=== PATIENT | female | born 1980 | race Caucasian/White ===

== ENCOUNTER 2022-06-19 10:49 | Outpatient (CLI) | payer OTHER, SELFPAY ==
[2022-06-19 11:12] LABS: Influenza Type A Negative (Negative); Influenza Type B Negative (Negative)
[2022-06-19 16:02] LABS: SARS PCR* Negative SARS-CoV-2 (Negative)
== END 2022-06-19 10:50 | disposition home or self-care (01) ==
PROVIDERS: PCP Family Medicine; Visit Provider Nurse Practitioner Family
DX: Z20.822 Contact with and (suspected) exposure to COVID-19 (principal); R51.9 Headache, unspecified; J32.9 Chronic sinusitis, unspecified
CPT/HCPCS: 87635; 87804

== ENCOUNTER 2023-04-23 14:36 | Outpatient (CLI) | payer OTHER, SELFPAY ==
--- NOTE | 2023-04-23 14:40 | CRLHL7_ITS ---
For Patients: As a result of the Cures Act, medical imaging exams and procedure reports are released immediately into your electronic medical record. You may view this report before your referring provider. If you have questions, please contact your health care provider. BILATERAL DIGITAL SCREENING MAMMOGRAM WITH COMPUTER-AIDED DETECTION WITH TOMOSYNTHESIS CLINICAL HISTORY: Routine screening exam. COMPARISON: None. TECHNIQUE: Digital mammogram in CC and MLO projections including computer-aided detection (CAD). BREAST COMPOSITION: There are scattered areas of fibroglandular density. FINDINGS: RIGHT Breast: Focal nodular density upper outer quadrant 7 cm from the nipple. LEFT Breast: No suspicious findings. IMPRESSION: RIGHT breast asymmetry/mass. RECOMMENDATIONS: Additional mammographic views of the RIGHT breast including 3D spot-compression CC/MLO. RIGHT breast ultrasound may also be required. The [facility] will contact the patient for follow-up. BI-RADS Category 0: Incomplete: Need Additional Imaging Evaluation and/or Prior Mammograms for Comparison A lay language report of this examination will be provided to the patient. Dictated by Herson Forde MD @ 04/27/2023 8:48:17 AM PT/Dictated by: Herson Forde MD @ 04/27/2023 8:48:00 AM (Electronically Signed)
== END 2023-04-23 14:37 | disposition home or self-care (01) ==
LOC: MAMMO 14:37
PROVIDERS: PCP Family Medicine; Visit Provider Obstetrics & Gynecology
DX: Z12.31 Encounter for screening mammogram for malignant neoplasm of breast (principal); N63.10 Unspecified lump in the right breast, unspecified quadrant
CPT/HCPCS: 77063; 77067; 80048

== ENCOUNTER 2023-04-29 08:19 | Day surgery (SDC) | payer OTHER, SELFPAY ==
[2023-04-29] VITALS (12 sets, daily range): BP systolic 105–132; BP diastolic 76–104; PULSE 55–65; RESP 16–18; TEMP 35.8–36.7; O2SAT 96–100; BMI 31.4
[2023-04-29] MEDS: MIDAZOLAM HCL 1 MG/ML inj IVP (07:29)
[2023-04-29] MEDS: LACTATED RINGERS 1000 ML 1,000 ML 100 ML IV (07:30)
--- OUTSIDE RECORDS SUMMARY | 2023-04-29 08:21 | XMS_ITS | Patient Health Record ---
Author Name Unknown Organization [facility] Address [address] [place] [id number] Care Team Providers Care Pest Control Worker Helper Name Role Phone None, No PCP Primary Care Provider Alan Holden Unavailable [phone] ALLERGIES Allergen (clinical drug ingredient) Drug/Non Drug Allergy documented on EMR Reaction Allergy Type Onset Date Status promethazine Phenergan Unknown Drug Allergy Acti ve Compazine Unknown Drug Allergy Active RESULTS Component Value Reference Range Notes THINPREP TIS AND HPV mRNA E6 /E7 (30 yrs and over) Reviewed date:02/17/2023 08:01:33 AM Interpretation: Performing Lab:[place], [facility] Herb Mckee Notes/Report: CLINICAL INFORMATION: ANNUAL LMP: NONE GIVEN PREV. PAP: 2020? PREV. BX: NONE GIVEN SOURCE: Cervix, Endocer vix STATEMENT OF ADEQUACY: Satisfactory for evaluation. Endocervical/transformation zone component absent. Age and/or menstrual status not provided INTERPRETATION/RESULT: Negat viridiana for intraepithelial lesion or malignancy. COMMENT: This Pap test has been evaluated with computer assisted technology. MEDICAL SECRETARY RECEPTIONIST: [place] CT(ASCP) CT Screening Location: [address] [address] COMMENT EXPLANATORY NOTE: The Pap is a screening test for cervical cancer. It is not a diagnostic test and is subject to false negative and false positive results. It is most reliable when a satisfactory sample, regularly obtained, is submitted with relevant clinical findings and history, and when the Pap result is evaluated along with historic and current clinical information. HPV mRNA E6/E7 Not Detected Not Detected Methodology: Packaging Engineer-Mediated Amplification This assay detects E6/E7 viral messenger RNA (mRNA) from 14 high-risk HPV types (16,18,31,33,35,39,45,51,52,56, 58,59,66,68). Cervical sources are required for HPV testing. If a vaginal source from a patient who has had a total hysterectomy with removal of cervix was submitted, please contact the testing laboratory for alternative testing options. For additional information, please refer to http://education.Smeet.Gradeable/faq/FRZ949r5 (This link if provided for information/ educational purposes only.) REASON FOR REFERRAL No Information MEDICATIONS Medication SIG (Take, Route, Frequency, Duration) Notes Start Date End Date Status OLANZapine 5 mg Active Metoprolol Succinate 100 mg Active Celecoxib 200 mg Active Baclofen 20 mg Active DULoxetine HCl 60 mg Activ e clonazePAM 1 mg Active Estradiol 1 mg Active traZODone HCl 100 Active Escitalopram Oxalate 20 mg Active Estradiol 1 MG 1 tablet Orally Once a day for 90 days 02/10/2023 Active Topiramate 100 Active Fluticasone Propionate HFA Active traMADol HCl 100 Active Omeprazole 40 Active SOCIAL HISTORY Tobacco Use: Social History Observation Description Date Details (start date - stop date) Never Smoker NA - NA Sex Assigned At : Social History Observation Description Sex Assigned At Unknown Tobacco Use/Smoking Question Answer Notes Are you a nonsmoker Alcohol Screen (Audit-C) Question Answer Notes Did you have a drink containing alcohol in the p ast year? No Points 0 Interpretation Negative PROBLEMS Problem Type ICD Code Onset Dates Problem Status W/U Status Risk SNOMED Code Notes Problem Annual visit for general adult medical examination without abnormal findings (Z00.00) Active confirmed Adult health examination (554795219) Problem Menopause (Z78.0) Active confirmed Menopause (570867149) Encounters Encounter Location Date Provider Diagnosis [address] [address] 02/10/2023 Alan Shah Annual visit for general adult medical examination without abnormal findings Z00.00 and Menopause Z78.[address] [address] 02/10/2023 Alan Shah Encounter for screen ing for human papillomavirus (HPV) Z11.51 and Encounter for annual routine gynecological examination Z01.419 ASSESSMENTS Encounter Date Diagnosis Assessment Notes Treatment Notes Treatment Clinical Notes 02/10/2023 Annual visit for general adult medical examination without abnormal findings (ICD-10 - Z00.00) 02/10/2023 Menopause (ICD-10 - Z78.0) 02/10/2023 Encounter for screening for human papillomavirus (HPV) (ICD-10 - Z11.51) 02/10/2023 Encounter for annual routine gynecological examination (ICD-10 - Z01.419) PLAN OF TREATMENT No Information Insurance Providers Payer Name Payer Address Payer Phone Subscriber Number Group Number Insured Name Patient Relationship to Insured Coverage Start Date Coverage End Date [employer] (INS BILL) [address] [address] [place] [address] [id number] Sofia Iyer Self - patient is the insured MEDICAL (GENERAL) HISTORY Medical History History ICD Code chronic pain endometriosis anxiety/depression hx of migraines hypertension ulcers Surgical History Surgery Date(Month/Year) spinal cord stimulator upper endoscopy multiple times total hysterectomy in ' ovarian cysts removed D and C multiple times Hospitalization History Reason Date(Month/Year) psych 01/21/2023
[2023-04-29] MEDS: CELECOXIB 200 MG CAPSULE PO (08:30)
[2023-04-29] MEDS: OXYCODONE (CR) 10 MG TAB.ER.12H PO (08:30)
[2023-04-29] MEDS: ACETAMINOPHEN 500 MG TABLET 1000 MG PO (08:30)
[2023-04-29] MEDS: SODIUM CHLORIDE 0.9 % (FLUSH) 10 ML SYRINGE IVF (09:00)
[2023-04-29] MEDS: fentaNYL 100 MCG/2 ML inj IVP (10:30)
--- NOTE | 2023-04-29 10:52 | SUR.PREOP ---
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
[2023-04-29] MEDS: CEFAZOLIN 2 GM INJ IVP (10:56)
--- NOTE | 2023-04-29 11:00 | CRLHL7_ITS ---
For Patients: As a result of the Cures Act, medical imaging exams and procedure reports are released immediately into your electronic medical record. You may view this report before your referring provider. If you have questions, please contact your health care provider. Indication: RT FOOT, SIMMONS FX REPAIR Technique: Three fluoroscopic images of the right foot. Fluoroscopic time 62.5 seconds. IMPRESSION: Fluoroscopic guidance for open reduction internal fixation of 5th metatarsal fracture. Dictated by Herson Forde MD @ 04/29/2023 12:28:50 PM (Electronically Signed)
--- NOTE | 2023-04-29 11:14 | P.NB_ITS ---
Nerve Block Nerve Block Time Seen by Provider: 10:40 Date Seen: 04/29/23 Type of block requested by surgeon for post-operative analgesia: popliteal Side: right Time out performed: Yes Verification of patient name: Yes Verification of date of : Yes Site marking: site marked Name of person performing procedure: Papa Continuous monitoring Was continuous monitoring of O2 sat, B/P, monitoring and evaluation advisor, recorded every 15 minutes?: Yes Procedure Checklist: sterile prep, needles and gloves Ultrasound guided. Images saved: Yes Medications given in 5ml increments after negative aspiration: Ropivicaine %: 0.5 mL: 20 Needle gauge: 22 Patient tolerated procedure well: Yes Additional comments: Needle noted adjacent to nerve Block Charges Block Charge (with Pro Fee): Sciatic Nerve Use of Ultrasound Machine for Block: Yes- US Guidance/pain block
--- NOTE | 2023-04-29 11:14 | W.ANESCHARGE ---
Anesthesia Charges Start Date/Time Anesthesia Start Date: 04/29/23 Anesthesia Start Time: 10:51 Stop Date/Time Anesthesia Stop Date: 04/29/23 Anesthesia Stop Time: 12:27
--- NOTE | 2023-04-29 11:28 | SUR.PREOP ---
TIME?OUT:?1030 PT/RN/MDA?VERIFICATION?OF?SURGICAL?SITE,?PROCEDURE,?AND?CONSENT OBTAINED?PRIOR?TO?INVASIVE?PROCEDURE. right foot RN MDA SHOT BAGGER PT AND CONSENT
--- NOTE | 2023-04-29 12:20 | PM.ORPRC ---
Procedure Note Date of procedure: 04/29/23 Procedure: PREOPERATIVE DIAGNOSIS: Right foot Garica fracture POSTOPERATIVE DIAGNOSIS: Right foot Garcia fracture NAME OF OPERATION: Right foot Garcia fracture ORIF SURGEON: Shorty Page MD ROTARY ENVELOPE MACHINE OPERATOR: Monica Penaloza PA-C ANESTHESIA: General ESTIMATED BLOOD LOSS: 5 mL COMPLICATIONS: None SPECIMENS: None DRAINS: None PREOPERATIVE ANTIBIOTICS: Ancef 2 g INDICATIONS: The patient is a 89-kfxr-vaq-year-old female sustained an injury to the right foot. Given the location of the fracture and propensity for nonunion, ORIF was recommended. The risks, benefits and expected outcomes were discussed in detail. These included but were not limited to: Infection, bleeding, injury to blood vessel or nerve, venous thromboembolism. All questions were answered to their satisfaction. PROCEDURE: The patient was placed supine on the operating room table. General anesthesia was administered. The foot was prepped and draped in the usual sterile fashion. The image intensifier was brought in for an oblique view of the foot. The guide pin was placed percutaneously at the starting point. It was driven into the base of 5th metatarsal several mm and confirmed on all three views. A percutaneous incision was made around the guide pin. Subcutaneous dissection was taken with a Miriam. Length was measured. The 4.5 mm cannulated drill was used. The 4.5 mm tap was used. We placed the 4.5 mm x 50 mm headless compression screw. This nicely compressed the fracture. Its placement was confirmed with the image intensifier in all three views. Attention was then turned to Ignite demineralized bone matrix. The trocar was placed percutaneously into the tuberosity of the calcaneus, laterally. 4 mL of bone marrow was aspirated. This was mixed on the back table with the DBM. We then made a tiny stab incision at the fracture site and used the trocar to inject the DBM around the fracture site. The incision was irrigated with normal saline. Skin was closed with a 4-0 Vicryl in an interrupted inverted fashion, glue was used to seal the skin. A dry dressing and short-leg Jaxon Garcia splint were applied. Sponge and needle counts were correct x2. The patient tolerated the procedure well. There were no apparent complications. They were carefully transferred to the hospital bed and taken to the postanesthesia care unit in satisfactory condition. PLAN: The patient will be discharged to home. They will be nonweightbearing on the lower extremity. They will follow up in the office in 1 week for a wound check and 3 nonweightbearing views of the foot prior to being seen, in preparation for a tall cam walker, weight-bearing as tolerates, with physical therapy.
--- NOTE | 2023-04-29 12:28 | W.ANESCHARGE ---
Anesthesia Charges Start Date/Time Anesthesia Start Date: 04/29/23 Anesthesia Start Time: 10:51 Stop Date/Time Anesthesia Stop Date: 04/29/23 Anesthesia Stop Time: 12:27
== END 2023-04-29 13:41 | disposition home or self-care (01) ==
LOC: OR 08:20
PROVIDERS: PCP Family Medicine; Visit Provider Orthopaedic Surgery
PROC: (CPT 28485; principal; 2023-04-29 12:00)
DX: S92.351A Displaced fracture of fifth metatarsal bone, right foot, initial encounter for closed fracture (principal); G89.18 Other acute postprocedural pain
CPT/HCPCS: 28485; 01480; 64445; 73620; 76942; A4580; A9270; C1713; J0690; J1100; J2250; J2405; J2704; J2795; J3010; J7120

== ENCOUNTER 2023-05-12 10:21 | Outpatient (CLI) | payer OTHER, SELFPAY ==
--- OUTSIDE RECORDS SUMMARY | 2023-05-12 10:24 | XMS_ITS | Patient Health Record ---
Author Name Unknown Organization [facility] Address [address] [place] [id number] Care Team Providers Care Digital Strategist Senior Manager Name Role Phone None, No PCP Primary Care Provider Alan Holden Unavailable [phone] ALLERGIES Allergen (clinical drug ingredient) Drug/Non Drug Allergy documented on EMR Reaction Allergy Type Onset Date Status promethazine Phenergan Unknown Drug Allergy Acti ve Compazine Unknown Drug Allergy Active RESULTS Component Value Reference Range Notes THINPREP TIS AND HPV mRNA E6 /E7 (30 yrs and over) Reviewed date:02/17/2023 08:01:33 AM Interpretation: Performing Lab:[place], [facility] Herb Mckee Notes/Report: CLINICAL INFORMATION: ANNUAL LMP: NONE GIVEN PREV. PAP: 2020? PREV. BX: NONE GIVEN SOURCE: Cervix, Endocer vix STATEMENT OF ADEQUACY: Satisfactory for evaluation. Endocervical/transformation zone component absent. Age and/or menstrual status not provided INTERPRETATION/RESULT: Negat viridiana for intraepithelial lesion or malignancy. COMMENT: This Pap test has been evaluated with computer assisted technology. MANAGER INPATIENT: [place] CT(ASCP) CT Screening Location: [address] [address] COMMENT EXPLANATORY NOTE: The Pap is a [...] mRNA E6/E7 Not Detected Not Detected Methodology: Glass Tinter-Mediated Amplification This assay detects E6/E7 viral messenger RNA (mRNA) from 14 high-risk HPV types (16,18,31,33,35,39,45,51,52,56, 58,59,66,68). Cervical sources are required for HPV testing. If a vaginal source from a patient who has had a total hysterectomy with removal of cervix was submitted, please contact the testing laboratory for alternative testing options. For additional information, please refer to http://education.Mitrionics.Ventario/faq/GWZ713e6 (This link if provided for information/ educational [...] findings (Z00.00) Active confirmed Adult health examination (614377605) Problem Menopause (Z78.0) Active confirmed Menopause (835594194) Encounters Encounter Location Date Provider Diagnosis [address] [address] 02/10/2023 Alan Shah Encounter for screen ing for human papillomavirus (HPV) Z11.51 and Encounter for annual routine gynecological examination Z01.419 [facility] [id number] [place] [id number] 02/10/2023 Alan Shah Annual visit for general adult medical examination without abnormal findings Z00.00 and Menopause Z78.0 ASSESSMENTS Encounter Date Diagnosis Assessment Notes Treatment [...] End Date UMR (INS BILL) [address] [address] [place] [address] [id number] Sofia Iyer Self - patient is the insured MEDICAL (GENERAL) HISTORY Medical History History ICD Code chronic pain endometriosis anxiety/depression hx of migraines hypertension ulcers Surgical History Surgery Date(Month/Year) spinal cord stimulator upper endoscopy multiple times total hysterectomy in ' ovarian cysts removed D and C multiple times Hospitalization History Reason Date(Month/Year) psych 01/21/2023
--- NOTE | 2023-05-12 10:45 | CRLHL7_ITS ---
For Patients: As a result of the Cures Act, medical imaging exams and procedure reports are released immediately into your electronic medical record. You may view this report before your referring provider. If you have questions, please contact your health care provider. DIGITAL DIAGNOSTIC RIGHT MAMMOGRAM USING TOMOSYNTHESIS AND COMPUTER-AIDED DETECTION RIGHT BREAST ULTRASOUND CLINICAL HISTORY: RIGHT breast mass/asymmetry. COMPARISON: 04/23/2023. TECHNIQUE: Digital RIGHT mammogram in two projections. Tomosynthesis and CAD utilized. Real-time ultrasound imaging of RIGHT breast with imaging documentation. BREAST COMPOSITION: There are areas of scattered fibroglandular density. FINDINGS: 3D spot compression CC/MLO RIGHT breast mammograms submitted. Decrease conspicuity of nodular density within the upper outer quadrant of the RIGHT breast without architectural distortion. No suspicious calcifications. Targeted RIGHT breast ultrasound performed in the upper outer quadrant 10 o`clock 6 cm from the nipple. In this location clustered microcysts are present measuring in total 7 x 4 x 7 millimeters. No solid masses. IMPRESSION: Benign fibrocystic change RIGHT breast 10 o`clock 6 cm from the nipple measuring 7 millimeters. No evidence of malignancy. RECOMMENDATIONS: Annual BILATERAL screening mammography. Results and recommendations discussed with the patient. BI-RADS Category 2: Benign A lay language report of this examination will be provided to the patient. Dictated by Herson Forde MD @ 05/12/2023 12:11:52 PM adonis/Dictated by: Herson Forde MD @ 05/12/2023 12:11:00 PM (Electronically Signed)
--- NOTE | 2023-05-12 11:15 | CRLHL7_ITS ---
For Patients: As a result of the Cures Act, medical imaging exams and procedure reports are released immediately into your electronic medical record. You may view this report before your referring provider. If you have questions, please contact your health care provider. PLEASE SEE DIGITAL DIAGNOSTIC RIGHT MAMMOGRAM PERFORMED SAME DAY CRL:rob rivas/Dictated by: Herson Forde MD @ 05/12/2023 12:11:00 PM (Electronically Signed)
== END 2023-05-12 10:22 | disposition home or self-care (01) ==
LOC: MAMMO 10:23
PROVIDERS: PCP Family Medicine; Visit Provider Obstetrics & Gynecology
DX: N63.10 Unspecified lump in the right breast, unspecified quadrant (principal); R92.8 Other abnormal and inconclusive findings on diagnostic imaging of breast
CPT/HCPCS: 76642; 77065; G0279

== ENCOUNTER 2023-06-30 09:45 | Outpatient (RCR) | payer OTHER, SELFPAY | END 2023-06-30 11:19 | disposition home or self-care (01) | PROVIDERS: PCP Family Medicine; Visit Provider Physician Assistant | DX: Z98.890 Other specified postprocedural states (principal); Z51.89 Encounter for other specified aftercare | CPT/HCPCS: 97110; 97161 ==

== ENCOUNTER 2023-10-05 10:46 | Outpatient (REF) | payer OTHER, SELFPAY ==
[2023-10-05 11:19] LABS: Basophils Percent Auto 0.8 % (0.0-3.0); Eosinophils Percent Auto 1.4 % (0.0-7.0); Hematocrit 38.5 % (33.0-51.0); Hemoglobin* 11.9 gm/dL (12.0-16.0); Lymphocytes Percent Auto 42.4 % (20-44); Mean Corpuscular HGB Conc 31 gm/dL (32-36); Mean Corpuscular Hemoglobin 30 pg (26-34); Mean Corpuscular Volume 96 fL (80-100); Monocytes Percent Auto 9.5 % (0.0-11.0); Neutrophils Percent Auto 45.9 % (42.0-72.0); Platelet Count* 336 K/uL (140-440); RDW Coefficient of Variation % 14.5 % (11.5-15.5)
[2023-10-05 11:22] LABS: Albumin* 4.4 g/dL (3.3-5.0)
[2023-10-05 11:23] LABS: Chloride* 109 mmol/L (96-114); Potassium* 4.6 mmol/L (3.6-5.1); Sodium* 139 mmol/L (135-149)
[2023-10-05 11:25] LABS: Anion Gap 6 mEq/L (7-15); Bilirubin Total* 0.5 mg/dL (0.1-1.5); Carbon Dioxide* 24 mmol/L (20-32); Cholesterol* 224 mg/dL (90-199); Creatinine* 0.8 mg/dL (0.5-1.5); Estimated Glomerular Filt Rate 94 ml/min; Total Protein* 7.2 g/dL (6.0-8.3)
[2023-10-05 11:26] LABS: Alanine Aminotransferase* 26 U/L (4-35); Alkaline Phosphatase* 80 U/L (40-150); Aspartate Amino Transferase* 26 U/L (12-35); Blood Urea Nitrogen* 19 mg/dL (5-24); Calcium* 8.9 mg/dL (8.4-10.6); Glucose* 110 mg/dL (60-115); HDL Cholesterol* 73 mg/dL (>=50); LDL Cholesterol Calculated 131 mg/dL (<100); Slide Review Reflex No; Triglycerides* 100 mg/dL (40-149)
[2023-10-05 11:42] LABS: Free T4 Free Thyroxine* 0.79 ng/dL (0.70-1.85)
[2023-10-05 11:46] LABS: Hemoglobin A1C* 5.5 % (0-5.6)
[2023-10-06 23:03] LABS: Free T3 2.6 pg/mL (2.5-4.3)
== END 2023-10-05 10:47 | disposition home or self-care (01) ==
LOC: NPINS 10:46
PROVIDERS: PCP Family Medicine; Visit Provider Nurse Practitioner Psychiatric/Mental Health
DX: F43.10 Post-traumatic stress disorder, unspecified (principal)
CPT/HCPCS: 80053; 80061; 83036; 84439; 84443; 84481; 85025

== ENCOUNTER 2024-01-21 14:10 | Outpatient (REF) | payer OTHER, SELFPAY ==
--- OUTSIDE RECORDS SUMMARY | 2024-01-21 14:14 | XMS_ITS | Clinical Summary ---
Author Organization [facility] Address [place], [place] [address] Care Team Providers Care Ceramic Tile Setter Name Role Phone Herson Rhodes MD Primary Care Provider + Allergies Active Allergy Reactions Criticality Noted Date Comments Prochlorperazine Dystonia,Restless Legs/Feet 11/17/2007 Takes as prn for migraines but does get the restless legs side effect Levofloxacin GI Upset 06/02/2017 Promethazine Dystonia High 06/10/2020 Medications Medication Sig Dispensed Refills Start Date End Date Status fluticasone (50 mcg per actuation) nasal solution (FLONASE)Indications: Seasonal allergic rhinitis APPLY TWO SPRAYS IN EACH NOSTRIL EVERY DAY 3 Bottle 2 07/25/2018 Active metoprolol succinate (TOPROL XL) 100 mg Sustained-Release tabletIndications:Hyp ertension, unspecified type Take 1 tablet by mouth once daily. 90 tablet 3 09/05/2018 Active topiramate (TOPAMAX) 100 mg tabletIndications:Deg enerative lumbar disc,Chronic daily headache,Chronic migraine TAKE ONE TABLET BY MOUTH TWICE A DAY 180 tablet 1 03/02/2019 Active DULoxetine (CYMBALTA) 60 mg Delayed-release capsule Take 60 mg by mouth once daily. Total dose 90mg 12/14/2022 Active traMADoL 100 mg Extended-Release capsule Take 1 Tablet by mouth once daily. 12/19/2022 Active celecoxib (CELEBREX) 200 mg capsule Take 200 mg by mouth two times daily. Active omeprazole (PRILOSEC) 40 mg Delayed-Release capsule Take 40 mg by mouth two times daily. Active clonazePAM (KLONOPIN) 1 mg tablet Take 1 mg by mouth two times daily. Active baclofen (LIORESAL) 20 mg tabletIndications:Cer vicalgia Take 2 Tablets (40 mg) by mouth. 240 Tablet 5 01/06/2023 Active estradioL (ESTRACE) 1 mg tabletIndications:End ometriosis Take 1 Tablet (1 mg) by mouth once daily. 0 01/06/2023 Active traZODone (DESYREL) 100 mg tabletIndications:Gen eralized anxiety disorder Take 1 Tablet (100 mg) by mouth at bedtime. 30 Tablet 01/11/2023 Active OLANzapine (ZYPREXA) 5 mg tabletIndications:Gen eralized anxiety disorder,Substance-in duced psychotic disorder (HC) Take 1 Tablet (5 mg) by mouth once daily. 30 Tablet 01/21/2023 Active escitalopram oxalate (LEXAPRO) 20 mg tabletIndications:Gen eralized anxiety disorder Take 1 Tablet (20 mg) by mouth at bedtime. 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 Medical marijuana use 10/03/2017 Degenerative lumbar disc 09/03/2017 Issue of repeat prescription 01/14/2016 Controlled substance agreement signed 01/14/2016 Generalized anxiety disorder 05/31/2015 Allergic rhinitis 04/07/2013 Hypertension 03/11/2011 IBS (irritable bowel syndrome) 03/18/2009 Overview: Colonoscopy 03/2012 normal Insomnia, unspecified 11/29/2007 Dysthymic disorder 12/09/2006 Endometriosis, site unspecified 12/09/2006 CHRONIC NECK PAIN 09/05/2006 Tobacco use disorder 09/05/2006 Narcotic Contract 04/15/2006 Non-intractable vomiting with nausea Resolved Problems Problem Noted Date Diagnosed Date Resolved Date Migraine 11/22/2011 12/12/2014 Anxiety state 10/06/2009 05/31/2015 Narcotic abuse 10/03/2009 09/02/2016 Unspecified Myalgia and spasm 07/21/2009 12/31/2009 Immunizations Name Administration Dates Next Due Hepatitis B (Adult) 01/30/2002,05/17/2000,1999 Influenza, IIV3 (Age >=3 years) 07/04/2012,05/18,06/04/2008 Influenza, IIV4 07/03/2022,07/11/2018,04/27/2017 ,06/19/2014 MMR 12/19/1993 Td (Age >=7 Years) 12/19/1993 Tdap 06/04/2008 Family History Medical History Relation Name Comments Good Health Brother 2 Hypertension Father Lester Diabetes Maternal Aunt 1 Heart Disease Maternal Aunt 2 Good Health Mother Brit Diverticulosis Hypertension Paternal Grandfather Hypertension Paternal Grandmother Thyroid Disease Sister 2 radiation to thyroid Relation Name Status Comments Brother 1 Alive Brother 2 Father Lester Alive Maternal Aunt 1 Maternal Aunt 2 Maternal Grandfather Maternal Grandmother Mother Brit Alive Paternal Grandfather Alive Paternal Grandmother Alive Sister 1 Alive Sister 2 Social History Tobacco Use Types Packs/Day Years Used Date Smoking Tobacco: Former Cigarettes 0.1 10 0 09/08/2000 - 09/08/2010 Smokeless Tobacco: Never Tobacco Cessation:Counseling Given: Not Answered Alcohol Use Standard Drinks/Week Comments Not Currently 0 (1 standard drink = 0.6 oz pur e alcohol) Social, none simce Mar PHQ-2 Answer Date Recorded PHQ-2 TOTAL SCORE 0 01/21/2023 Social Connections Answer Date Recorded Frequency of Communication with Friends and Fami ly Not on file 10/29/2021 Alcohol Use Answer Date Recorded How often do you have a drink containing alcohol ? 0 12/31/2022 How many drinks containing a lcohol do you have on a typical day when you are drinking? 0 12/31/2022 How often do you have five or more drinks on one occasion? 0 12/31/2022 Sex and Gender Information Value Date Recorded Sex Assigned at Not on file Gender Identity Not on file Sexual Orientation Not on file Obstetrics History Para Term AB IAB SAB Ectopic Multiple Livin g Live Births 0 0 0 0 0 0 0 0 0 0 Last Filed Vital Signs Vital Sign Reading Time Taken Comments Blood Pressure 119/79 01/11/2023 9:46 AM CDT Pulse 65 01/11/2023 9:46 AM CDT Temperature 36.4 ??C (97.6 ??F) 01/11/2023 9:46 AM CD T Respiratory Rate 18 01/11/2023 9:46 AM CDT Oxygen Saturation 99% 01/11/2023 9:46 AM CDT Inhaled Oxygen Concentration - - Weight 87.5 kg (193 lb) 01/11/2023 9:46 AM CDT Height 165.1 cm (5' 5) 01/11/2023 9:46 AM CDT Body Mass Index 32.12 01/11/2023 9:46 AM CDT Plan of Treatment Health Maintenance Due Date Last Done Comments HIV for age 15-65 1995 Tetanus booster 06/04/2018 06/04/2008, 12/19/1993 COVID-19 vaccine series (2022- season) 2023 04/30/2022, 06/12/2021, 10/03/2020, Additional history exists BMI (ht and wt on same day) for age 18+ 07/22/2023 07/22/2022, 10/29/2021, 07/01/2020, Additional history exists Depression screening for age 12+ 01/22/2024 01/21/2023, 01/14/2023, 01/13/2023, Additional history exists Influenza for age 9-49 04/23/2024 , 07/11/2018, 04/27/2017, Additional history exists Hepatitis C screening for age 18-79 Completed 08/21/2004 Tdap Completed 06/04/2008 Pneumococcal series for age 6-64 Aged Out No longer eligible based on patient's age to complete this topic Goals Goal Patient Goal Type Associated Problems Recent Progress Patient-Stated? Author BLOOD PRESSURE - MAINTAINS BP less than 140/90 Blood Pressure Herson Garcia MD Medical Devices Implanted Type Area Transplant Worker Device Identifier Shelf Expiration Date Model / Serial / Lot Stimulator Spinal Primeadvanedsurescan Mri - [id number] Implanted:Qty: 1 on 12/02/2017 by Herson Lala MD at [facility] Left: Flank Medtronic Pain Therapy 12/18/2018 [id number]# / [id number] / Stimulator Spinal Intellis Mri - [id number] Implanted:Qty: 1 on 06/19/2020 by Herson Lala MD at [facility] Left: Flank Medtronic Pain Therapy 04/19/2021 [id number]# / / [id number] Envlp Neuro Tyrchon Sue Antibacterial - [id number] Implanted:Qty: 1 on 06/19/2020 by Herson Lala MD at [facility] Left: Flank Medtronic 01/10/2021 [id number] / / [id number] Explanted Type Area Transplant Worker Device Identifier Shelf Expiration Date Model / Serial / Lot [id number] - [id number] Explanted:Qty: 1 on 12/02/2017 at [facility] Left: Flank Medtronic [id number] / [id number] / Description:Spinal cord gene rator battery Procedures Procedure Name Priority Date/Time Associated Diagnosis Comments ANTI HCV Timed 08/21/2004 9:55 AM EMG TECHNICIAN from Last 3 Months or Most Recently Relevant to Health Maintenance Results * ANTI HCV (08/21/2004 9:55 AM EMG TECHNICIAN) ANTI HCV Non-reactiv e [facility] 08/21/2004 9:55 AM EMG TECHNICIAN 08/21/2004 7:46 PM EMG TECHNICIAN Narrative [facility] - 08/26/2004 1:39 PM EMG TECHNICIAN Testing Performed By [place], [place] Radha Huff NP SEND OUTS [facility] [address] [place] [address] from Last 3 Months or Most Recently Relevant to Health Maintenance Advance Directives * Full Code (Latest Code Status on File) Date Activated Date Inactivated Comments 12/31/2022 1:01 AM 01/06/2023 6:00 PM Question Answer Comments Code Status Discussion: Reviewed Preferences * Full Code Date Activated Date Inactivated Comments 06/19/2020 8:33 AM 06/19/2020 3:37 PM Question Answer Comments Code Status Discussion: Not Discussed * Full Code Date Activated Date Inactivated Comments 01/19/2012 6:24 AM 01/19/2012 2:06 PM * Full Code Date Activated Date Inactivated Comments 07/20/2009 7:00 AM 07/21/2009 2:26 AM Care Teams Ceramic Tile Setter Relationship Specialty Start Date End Date Herson Rhodes MD [address] [place] [id number] PCP - General Family Practice 06/10/20
--- OUTSIDE RECORDS SUMMARY | 2024-01-21 14:14 | XMS_ITS | Referral Summary ---
Author Organization [facility] Address [address] [place] [address] Care Team Providers Care Software Implementation Specialist Name Role Phone Unavailable Primary Care Provider Unavailabl e Source Comments Patient records contain information from all sites at [facility]. For routine questions regarding patient records, call [phone] during business hours, M-F 8:00 AM - 5:00 PM Central Time. Record requests for emergency care only can be directed to [phone] at any time.[facility] Immunizations Name Administration Dates Next Due DTaP (Infan[employer], [employer]) 06/04/2008 Influenza, Unspecified 07/29/2015,06/04/2008 Social History Tobacco Use Types Packs/Day Years Used Date Smoking Tobacco: Never Nutrition Answer Date Recorded Nutrition: EVOO Fat Source Unknown 10/16 Nutrition: Servings of Fruits/Vegetables per Day Not on file 2020 Dental Answer Date Recorded Dental: Regular Dentist Unknown 10/16/19 21 Sex and Gender Information Value Date Recorded Sex Assigned at Not on file Gender Identity Not on file Sexual Orientation Not on file Last Filed Vital Signs Vital Sign Reading Time Taken Comments Blood Pressure 122/80 07/01/2015 11:34 AM AGILE SCRUM MASTER Pulse 80 07/01/2015 11:34 AM AGILE SCRUM MASTER Temperature - - Respiratory Rate 14 07/01/2015 11:34 AM AGILE SCRUM MASTER Oxygen Saturation - - Inhaled Oxygen Concentration - - Weight 104 kg (229 lb 4.5 oz) 07/01/2015 11:34 A M AGILE SCRUM MASTER Height 166 cm (5' 5.35) 07/29/2015 2:10 PM AGILE SCRUM MASTER Body Mass Index 37.74 07/01/2015 11:34 AM AGILE SCRUM MASTER Plan of Treatment Not on file Procedures Procedure Name Priority Date/Time Associated Diagnosis Comments EXTI LIPID PANEL, S Routine 01/01/2023 6 :59 AM CDT from Last 3 Months or Most Recently Relevant to Health Maintenance
--- OUTSIDE RECORDS SUMMARY | 2024-01-21 14:14 | XMS_ITS | Continuity of Care Document ---
Author Organization [facility] Address [address] [address] [place] [address] Phone Care Team Providers Care Tug Boat Captain Name Role Phone Kashif Su MD Unavailable Unavailable Allergies, Adverse Reactions, Alerts Substance Reaction Status Criticality PROMETHAZINE HCL Active No Informat ion PROCHLORPERAZINE MALEATE Active No Information PROCHLORPERAZINE EDISYLATE Active N o Information prochlorperazine Active No Informat ion Medications Medication Instructions Dosage Effective Dates (start - stop) Status Comments lorazepam 0.5 mg tablet take 0.5 tablet by oral route every day as needed as needed 0.25 MG - Active ondansetron 4 mg disintegrating tablet take 1 tablet by oral route every 8 hours as needed as needed 4 MG - Active pantoprazole 40 mg tablet,delayed release take 1 tablet by oral route 2 times every day 40 MG - Active trazodone 150 mg tablet take 1 tablet by oral route every day as needed 150 MG - Active metoprolol succinate ER 100 mg tablet,extended release 24 hr take 1 tablet by oral route every day 100 MG - Active olopatadine 0.2 % eye drops instill 1 drop by ophthalmic route every day as needed 1 drop - Active topiramate 100 mg tablet take 1 tablet by oral route every day 100 MG - Active tramadol ER 200 mg tablet,extended release 24 hr take 1 tablet by oral route every day 200 MG - Active baclofen 20 mg tablet take 1 tablet by o ral route every day 20 MG - Active Cymbalta 60 mg capsule,delayed release take 1 capsule by oral route every day as needed 60 MG - Active citalopram 20 mg tablet take 1 tablet by oral route every day 20 MG - Active Estrace 0.5 mg tablet take 1 tablet by o ral route every day days 1-21 0.5 MG - Active Herbal Medications/Supplements unknown medical marijuana oil - Active Procedures Procedure Date Established Level 4 [facility]gi End[facility]; W/balloon Dilat Esop [facility]; W/bx 1/mx Level Iv-surg Path Gross/micro Offic/outpt E&m Estab Mod-hi 2 [facility]; W/dilat Outlet-any M [facility]; W/bx 1/mx [facility]; Dx W/wo Collec Specm cancelled appt Advance Directives Directive Yes / No Effective Date File Name No Information Encounters Encounter Description Practice Location Reason(s) For Visit Diagnoses Date Provider Providers Copied on Encounter [facility] JANIA BARRON [address] [address], [place], [place], [id number], tel:[phone] [facility] No Information 3 Go MD Rowland. [address] [place] [address], [address], [id number], [place]. tel:[phone] Established Level 4 [facility] BEATRICE [address] [address], [place], [place], [id number], [place] tel:[phone] [facility] GI Symptoms or Concerns (chief complaint) Duodenal stenosis 3 Go MD Rowland. [address] [place] [address], [address], [id number], [place]. tel:[phone] Referring Provider: Referral Self, USE FOR SELF REFERRALS. [facility], [address] [address], [place], [id number], [place] tel:[phone] [facility] No Information 3 Cyrus Murcia. [address] [facility], [place], [place], [id number], [place]. tel:[phone] [facility], [address] [address], [place], [id number], [place] tel:[phone] [facility] No Information 1 Georges Rowland. [address] [facility], [facility] [address], [place], [place], [id number], [place]. tel:[phone] Referring Provider: Kashif Guzman, [address] [facility] [address], [place], [address] . tel:[phone] [facility], [address] [address], [place], [id number], [place] tel:[phone] [facility] GI Symptoms or Concerns (chief complaint) Duodenal stenosisObstruct ion of duodenum 1 Georges Rowland. [address] [facility], [facility] [address], [place], [place], [id number], [place]. tel:[phone] Referring Provider: Referral Self, USE FOR SELF REFERRALS. [facility], [address] [address], [place], [id number], [place] tel:[phone] No Information 1 No Information Offic/outpt E&m Estab Mod-hi 2 [facility], [address] [address], [place], [id number], [place] tel:[phone] [facility] GI Symptoms or Concerns (chief complaint) Obstruction of duodenum 1 Tobi Pugh. [address] [facility], [facility] [address], [place], [place], [id number], [place]. tel:[phone] Referring Provider: Pallavi Parra MD, [address] [place] [address], [address]. tel:[phone] [facility], [address] [address], [place], [id number], [place] tel:[phone] [facility] No Information 1 Jammie Jaime. [address] [facility], [place], [place], [id number], [place]. tel:[phone] [facility], [address] [address], [place], [id number], [place] tel:[phone] [facility] Obstruction of duodenum 1 Georges Rowland. [address] [facility], [address], [place], [place], [id number], [place]. tel:[phone] [facility], [address] [address], [place], [id number], [place] tel:[phone] [facility] No Information 1 Georges Rowland. [address] [facility], [facility] [address], [place], [place], [id number], [place]. tel:[phone] Referring Provider: Kashif Guzman, [address] [facility] [address], [place], [address] . tel:[phone] [facility], [address] [address], [place], [id number], [place] tel:[phone] [facility] Duodenal strictureGastric outlet obstructionObstr uction of duodenumAdult hypertrophic pyloric stenosis 1 No Information Referring Provider: Pallavi Parra MD, [address] [place], [address]. tel:[phone] [facility], [address] [address], [place], [id number], [place] tel:[phone] [facility] No Information 1 Brenda WEI [facility]. [address] [facility], [address], [place], [place], [id number], [place]. tel:[phone] Referring Provider: Pallavi Parra MD, [address] [place], [address]. tel:[phone] [facility], [address] [address], [facility] [place], [id number], [place] tel:[phone] [facility] No Information Jammie Jaime. [address] [facility], [facility] [address], [place], [place], [id number], [place]. tel:[phone] Family History Family Member Type Diagnosis Age At Onset No Information Immunizations Vaccine Date Status Comments Afluria Qd administered Note: [facility] bi-directional interface ; Source: Other Registry SARS-COV-2 (COVID-19) vaccin e, mRNA, spike protein, LNP, bivalent booster, preservative free, 50 mcg/0.5 mL or 25 mcg/0.25 mL dose administered Note: [facility] bi-direct ional interface ; Source: Other Registry influenza virus vaccine, unspecified formulation administered Note: [facility] bi-di rectional interface ; Source: Other Registry SARS-COV-2 (COVID-19) vaccin e, mRNA, spike protein, LNP, preservative free, 30 mcg/0.3mL dose administered Note: [facility] bi-direct ional interface ; Source: Other Registry SARS-COV-2 (COVID-19) vaccin e, mRNA, spike protein, LNP, preservative free, 30 mcg/0.3mL dose administered Note: [facility] bi-direct ional interface ; Source: Other Registry SARS-COV-2 (COVID-19) vaccin e, mRNA, spike protein, LNP, preservative free, 30 mcg/0.3mL dose administered Note: [facility] bi-direct ional interface ; Source: Other Registry Seasonal, quadrivalent, recombinant, injectable influenza vaccine, preservative free administered Note: [facility] bi-direct ional interface ; Source: Other Registry tetanus toxoid, reduced diphtheria toxoid, and acellular pertussis vaccine, adsorbed administered Note: [facility] b i-directional interface ; Source: Other Registry Afluria Qd administered Note: [facility] bi-directional interface ; Source: Other Registry Afluria Qd administered Note: [facility] bi-directional interface ; Source: Other Registry Afluria Qd administered Note: [facility] bi-directional interface ; Source: Other Registry Afluria Qd administered Note: [facility] bi-directional interface ; Source: Other Registry Influenza administered Note: [facility] bi-d irectional interface ; Source: Other Registry Afluria Qd administered Note: [facility] bi-directional interface ; Source: Other Registry Afluria Qd administered Note: [facility] bi-directional interface ; Source: Other Registry Influenza, seasonal, injecta ble, preservative free administered Note: [facility] bi-direct ional interface ; Source: Other Registry tetanus toxoid, reduced diphtheria toxoid, and acellular pertussis vaccine, adsorbed administered Note: [facility] b i-directional interface ; Source: Other Registry Influenza, seasonal, injectable administe red Note: [facility] bi- directional interface ; Source: Other Registry Payers Payer name Insurance type Covered democrat ID Authoriza tileigha(s) R CI [id number] Social History Type Description Quantity Date Captured Comments Sex Female Smoking Status No Information Chief Complaint And Reason For Visit No Information Reason For Referral Reason For Referral No Information Plan Of Treatment Date Type Action Status Referral Ordered: EGD With Dilation Appointment date/timeframe: 06/17/2021 ordered Referral Ordered: EGD Appointment date/timeframe: 04/09/2021 ordered History Of Present Illness Encounter Date Complaint History Of Prese nt Illness GI Symptoms or Concerns Sofia Iyer is a very pleasant 42-year-old female who presents today for a virtual visit. She gave consent and was alone in a private place.She has a history of duodenal stensosis. This was last dilated on 07/11/2021. She did fairly well until the past several months when she would vomit undigested food about every other morning when she brushes her teeth similar to her symptoms in the past. She denies weight loss, abdominal pain or melena.The patient states that she has generally felt full over the last 10 years, which have been slightly progressive. She finally underwent an upper endoscopy in [place], [place] in 2020 and was felt to have a gastric outlet obstruction and was referred to [facility]. 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 She has been placed on PPI therapy. She was redilated in 06/2021. GI Symptoms or Concerns GI Symptoms or Concerns Sofia Iyer is a very pleasant 40-year-old female who I am seeing in followup for a duodenal obstruction. The patient states that she has generally felt full over the last 8 years, which may have been slightly progressive. She finally underwent an upper endoscopy in [place], [place] earlier this year and was felt to have a gastric outlet obstruction and was referred to [facility]. 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 The patient states that she has been liberalizing her diet and that having being placed on PPI therapy, her heartburn has decreased. At that time, it was recommended that she have a repeat examination in approximately 2 months, which she has not scheduled. She has lost some weight with the duodenal stricture, although this appear Functional Status Date Functional Assessmen t No Information Instructions Date Instruction Additional Infor keyla 1. Continue PPIs.2. EGD with dilation.3. Likely surgical referral after EGD. Related to Duodenal stenosis EGD Duodenal stricture. I recommend that she continue the acid blocking medications. We will repeat the EGD next available, which I think she can do in the [facility]. She should be on a clear liquid diet for 24 hours prior to the procedure and we would plan on dilating her as well as taking biopsies in her stomach and small bowel looking for the etiology of the narrowing. This could represent passed asymptomatic peptic ulcer disease, celiac sprue being less likely. She will follow up in clinic after the above testing.Thank you for involving us in the care of this pleasant patient. Related to Obstruction of duodenum EGD Full liquid diet w/n utritional supplements Related to Duodenal stricture Assessments Type Assessment Date No Information Patient Care Teams Name Effective Dates (start - stop) Status Members No Information
--- OUTSIDE RECORDS SUMMARY | 2024-01-21 14:14 | XMS_ITS ---
Author Organization [facility] Address [address] [place] [address] Care Team Providers Care Security Associate Name Role Phone Unavailable Unavailable Unavailable Surgery Details Not on file Complications Check Surgery Details section. Procedure Estimated Blood Loss Check Surgery Details section. Procedure Findings Check Surgery Details section. Procedure Specimens Taken Check Surgery Details section.
--- OUTSIDE RECORDS SUMMARY | 2024-01-21 14:14 | XMS_ITS | Clinical Summary ---
Author Organization [facility] Address [address] [place] [address] Care Team Providers Care Neurology Manager Name Role Phone Unavailable Primary Care Provider Unavailabl e Source Comments Patient records contain information from all sites at [facility]. For routine questions regarding patient records, call [phone] during business hours, M-F 8:00 AM - 5:00 PM Central Time. Record requests for emergency care only can be directed to [phone] at any time.[facility] Immunizations Name Administration Dates Next Due [...] Comments Blood Pressure 122/80 07/01/2015 11:34 AM FORMING PRESS OPERATOR Pulse 80 07/01/2015 11:34 AM FORMING PRESS OPERATOR Temperature - - Respiratory Rate 14 07/01/2015 11:34 AM FORMING PRESS OPERATOR Oxygen Saturation - - Inhaled Oxygen Concentration - - Weight 104 kg (229 lb 4.5 oz) 07/01/2015 11:34 A M FORMING PRESS OPERATOR Height 166 cm (5' 5.35) 07/29/2015 2:10 PM FORMING PRESS OPERATOR Body Mass Index 37.74 07/01/2015 11:34 AM FORMING PRESS OPERATOR Plan of Treatment Health Maintenance Due Date Last Done Comments HIV Screening 1980 Hepatitis C Screening 1980 Mammogram 1980 COVID-19 Vaccine (2022- season) 2023 04/30/2022, 06/12/2021, 10/03/2020, Additional history exists Depression Screening (Annual PHQ-2) 08/23/2023 Cervical Cancer Screening 05/07/2024 05/07/2021 Lipid (Cholesterol) Screening 01/02/2028 01/01/2023 DTaP,Tdap,and Td Vaccines (3 - Td or Tdap) 04/07/2029 04/07/2019, 06/04/2008, 06/04/2008 Hepatitis B Vaccines Completed 01/30/2002, 05/17/2000, 04/16/2000 Influenza Vaccine Completed 05/19/2023, , 07/10/2021, Additional history exists HPV Vaccines Aged Out No longer eligi ble based on patient's age to complete this topic Pneumococcal vaccine (0-64 years) Aged Out No longer eligible based on patient's age to complete this topic Procedures Procedure Name Priority Date/Time Associated Diagnosis Comments EXTI LIPID PANEL, S Routine 01/01/2023 6 :59 AM CDT from Last 3 Months or Most Recently Relevant to Health Maintenance
--- OUTSIDE RECORDS SUMMARY | 2024-01-21 14:15 | XMS_ITS | Referral Summary ---
Author Organization [facility] Address [address] [place] [address] Care Team Providers Care Red Lead Burner Name Role Phone Herson Rhodes MD Primary Care Provider [facility] Allergies Active Allergy Reactions Criticality Noted Date Comments Compazine 09/26/2009 Restless legs Levofloxacin 06/02/2017 Other reaction(s): GI Upset Promethazine-Dm 12/12/2012 Restless legs Medications Medication Sig Dispensed Refills Start Date End Date Status baclofen (LIORESAL) 20 MG tablet Take 40 mg by mouth daily (Takes 2 x 20mg = 40mg) Active metoprolol succinate ER (TOPROL XL) 100 MG 24 hr tablet Take 100 mg by mouth daily Active topiramate (TOPAMAX) 100 MG tablet Take 100 mg by mouth 2 times daily Active fluticasone (FLONASE) 50 MCG/ACT nasal spray [place] 2 sprays into both nostrils daily Active olopatadine (PATANOL) 0.1 % ophthalmic solution Place 1 drop into both eyes 2 times daily Active escitalopram (LEXAPRO) 10 MG tablet Take 10 mg by mouth daily Active Gabapentin 10 % CREAIndications:Pain Externally apply 1 g topically 4 times daily 30 mL 11/07/2019 Active estradiol (ESTRACE) 0.5 MG tabletIndications:Ab sence of menstruation Take 1 tablet (0.5 mg) by mouth daily 90 tablet 3 05/07/2021 Active traMADol HCl 100 MG TABS 100 mg 2 times daily Active Active Problems Problem Noted Date Diagnosed Date Obesity (BMI 35.0-39.9) with comorbidity 019 Vaginal Pap smear 09/27/2017 Overview: 2006 LEEP- will need paps x 20 years regardless of removal of cervix or age- until 2025, , NIL paps- 12/19/15 total hysterectomy including cervix. Benign pathology 2016 NIL vaginal pap 09/20/17 NIL/Neg HPV of vagina cuff. 09/26/18 NIL vaginal pap, Neg HPV. Vaginal pap in 3 years 03/04/20 NIL vaginal pap, neg HPV 05/07/21 NIL vaginal pap, neg HPV. Plan: cotest in 3 years Endometriosis 12/19/2015 Anxiety associated with depression 07/30/2010 Overweight 07/30/2010 Overview: Problem list name updated by automated process. Provider to review Muscular deconditioning 07/30/2010 Degenerative arthritis of cervical spine 010 Spondylarthrosis 01/14/2010 Sacroiliac joint pain 01/14/2010 Chronic low back pain 01/14/2010 Immunizations Name Administration Dates Next Due COVID-19 MONOVALENT 12+ (Pfizer) 06/12/2021,09/23,09/12/2020 DTAP (<7y) 06/04/2008 Flu, Unspecified 07/29/2015,06/04/2008 Hepatitis B, Adult 01/30/2002,05/17/2000, 000 Influenza (IIV3) PF 07/04/2012,05/18/2011,2007 Influenza Vaccine 18-64 (Flublok) 08/18/2019 Influenza Vaccine >6 months,quad, PF 06/2022,07/10/2021,06/10/2020,2018,07/11/2018,04/27/2017,07/29/2015,1 ,07/04/2012,05/18/2011, 008 Influenza Vaccine, 6+MO IM (QUADRIVALENT W/PRESERVATIVES) 07/29/2015 Influenza, seasonal, injectable, PF 05/18/2011 MMR 12/19/1993 TDAP (Adacel,Boostrix) 04/07/2019,06/04/2008 Td (Adult), Adsorbed 12/19/1993 Social History Tobacco Use Types Packs/Day Years Used Date Smoking Tobacco: Former Cigarettes Q uit: 08/23/2010 Smokeless Tobacco: Never Tobacco Cessation:Counseling Given: No Alcohol Use Standard Drinks/Week Comments Yes 0 (1 standard drink = 0.6 oz pur e alcohol) 1/month PHQ-2 Answer Date Recorded PHQ-2 Score 0 02/18/2023 Adolescent Education Answer Date Record ed Getting School Help Needed Not on file 06/09 Sex and Gender Information Value Date Recorded Sex Assigned at Female 04/04/2021 10:28 PM CDT Gender Identity Female 04/04/2021 10:28 PM CDT Sexual Orientation Straight 04/04/2021 10 :28 PM CDT Last Filed Vital Signs Vital Sign Reading Time Taken Comments Blood Pressure 115/81 02/18/2023 1:10 PM CDT Pulse 72 02/18/2023 1:10 PM CDT Temperature 36.8 ??C (98.2 ??F) 02/18/2023 1:10 PM CD T Respiratory Rate 14 02/18/2023 1:10 PM CDT Oxygen Saturation 99% 02/18/2023 1:10 PM CDT Inhaled Oxygen Concentration - - Weight 83.5 kg (184 lb) 02/18/2023 1:10 PM CDT Height 166.4 cm (5' 5.5) 02/18/2023 1:10 PM CDT Body Mass Index 30.15 02/18/2023 1:10 PM CDT Plan of Treatment Not on file Medical Devices Implanted Type Area Welding Machine Operator/Tender Device Identifier Shelf Expiration Date Model / Serial / Lot Primeadvanced Surescan Mri Neurostimulator Implanted:Qty: 1 on 02/14/2014 by Aj Perkins MD at [facility] Left: Buttocks [employer] 03/19/2015 [id number] / [id number] / Explanted Type Area Welding Machine Operator/Tender Device Identifier Shelf Expiration Date Model / Serial / Lot Prime Advanced Neurostimulator Implanted:Qty: 1 on 03/16/[address] [facility] Explanted:Qty: 1 on 02/14/2014 by Aj Perkins MD at [facility] Left: Buttocks [employer] 03/05/2012 [id number] / [id number] / Description:[facility] ulti program Neurostimulator Medtronic Procedures Procedure Name Priority Date/Time Associated Diagnosis Comments GYNECOLOGIC CYTOLOGY Routine 05/07/2021 11:50 AM CDT Encounter for gynecological examination without abnormal finding HPV HIGH RISK TYPES DNA CERVICAL Routine 05/07/2021 11:50 AM CDT Encounter for gynecological examination without abnormal finding MA SCREENING DIGITAL BILATERAL Routine 05/07/2021 11:20 AM CDT Visit for screening mammogram GLUCOSE BY METER Routine 12/20/2015 5:21 AM CDT Endometriosis HIV RAPID ANTIBODY SCREEN STAT 01/28/2010 12:27 PM CDT HEPATITIS C ANTIBODY STAT 01/28/2010 12:27 PM CDT from Last 3 Months or Most Recently Relevant to Health Maintenance Results * Pap thin layer screen with HPV - recommended age 30 - 65 years (05/07/2021 11:50 AM CDT) Interpretation Negative for Intraepithelial Lesion or Malignancy (NILM) 05/09/2021 2:32 PM CDT [facility] Specimen Adequacy Satisfactory for evaluation, endocervical/paul sformation zone component absent 05/09/2021 2:32 PM CDT [facility] Clinical Information complete hysterectomy 05/09/2021 2:32 PM CDT [facility] Reflex Testing Yes regardless of result 05/09/2021 2:32 PM CDT [facility] Previous Abnormal? No 05/09/2021 2:32 PM CDT [facility] Performing Labs The technical component of this testing was completed at [facility] 05/09/2021 2:32 PM CDT [facility] Brushing VAGINAL STRUCTURE / Unknown 05/07/2021 11:50 AM CDT 05/07/2021 12:21 PM CDT Alan Shah MD LAB - BEAKER AP [facility] [address] [place] [address], [facility] [phone] * HPV High Risk Types DNA Cervical (05/07/2021 11:50 AM CDT) Other HR HPV Negative Negative 05/13/2021 2:50 PM CDT [facility] HPV16 DNA Negative Negative 05/13/2021 2:50 PM CDT [facility] HPV18 DNA Negative Negative 05/13/2021 2:50 PM CDT [facility] FINAL DIAGNOSIS This patient's sample is negative for HPV DNA. This test was developed and its performance characteristics determined by the [facility], Molecular Diagnostics Laboratory. It has not been cleared or approved by the FDA. The laboratory is regulated under CLIA as qualified to perform high-complexity testing. This test is used for clinical purposes. It should not be regarded as investigational or for research. METHODOLOGY: The Hannah Jeanine 4800 system uses automated extraction, simultaneous amplification of HPV (L1 region) and beta-globin, followed by real time detection of fluorescent labeled HPV and beta globin using specific oligonucleotide probes. The test specifically identified types HPV 16 DNA and HPV 18 DNA while concurrently detecting the rest of the high risk types (31, 33, 35, 39, 45, 51, 52, 56, 58, 59, 66 or 68). COMMENTS: This test is not intended for use as a screening device for woman under age 30 with normal cervical cytology. Results should be correlated with cytologic and histologic findings. Close clinical followup is recommended. 05/13/2021 2:50 PM CDT [facility] Brushing VAGINAL STRUCTURE / Unknown Non-blood Collection / Unknown 05/07/2021 11:50 AM CDT 05/12/2021 8:50 AM CDT Alan Shah MD LAB - BLOOD ORDERABL ES [facility] [address] [facility] [place] [address], [facility] [phone] * MA Screening Digital Bilateral (05/07/2021 11:20 AM CDT) Anatomical Region Laterality Modality Breast Bilateral Mammography Narrative 05/07/2021 12:02 PM CDT BILATERAL FULL FIELD DIGITAL SCREENING MAMMOGRAM Performed on: 05/07/21 No comparisons were made when reading this study. Technique: This study was evaluated with the assistance of Computer-Aided Detection. Findings: The breasts have scattered areas of fibroglandular density. ?? There is no radiographic evidence of malignancy. IMPRESSION: ACR BI-RADS Category 1: Negative RECOMMENDED FOLLOW-UP: Annual routine screening mammogram The results and recommendations of this examination will be communicated to the patient. Alan Shah MD [facility]G MAMMOGRAPHY ORDE CAITLYN * (ABNORMAL) Glucose by meter (12/20/2015 5:21 AM CDT) Glucose 103(H) 70 - 99 mg/dL POINT OF CARE TEST, GLUCOSE 12/20/2015 5:21 AM CDT 12/20/2015 5:25 AM CDT Alan Shah MD LAB - BEAKER POCT POINT OF CARE TEST, GLUCOSE * HIV 1 and 2 rapid screen (01/28/2010 12:27 PM CDT) HIV Rapid Antibody Screen Negative for HIV-1 and/or HIV-2 antibodies HIVNEG MISYS 01/28/2010 12:2 7 PM CDT 01/28/2010 12:34 PM CDT Aj Perkins MD LAB - BLOOD ORDERABLES MISYS * Hepatitis C antibody (01/28/2010 12:27 PM CDT) Hepatitis C Antibody Negative NEG MISYS 01/28/2010 12:2 7 PM CDT 01/28/2010 12:34 PM CDT Aj Perkins MD LAB - BLOOD ORDERABLES MISYS from Last 3 Months or Most Recently Relevant to Health Maintenance Advance Directives For more information, please contact: [phone] * Full Code (Latest Code Status on File) Date Activated Date Inactivated Comments 12/19/2015 3:02 PM 12/20/2015 1:10 PM Care Teams Red Lead Burner Relationship Specialty Start Date End Date Herson Rhodes MD PCP - General 06/02/11 Clinic - [facility] [address] [place] [address] Assigned PCP 12/14/23
--- OUTSIDE RECORDS SUMMARY | 2024-01-21 14:15 | XMS_ITS | Encounter Summary ---
Author Organization [facility] Address [address] [place] [address]. [place] [address] Care Team Providers Care Mental Health Technician Name Role Phone Herson Rhodes MD Primary Care Provider Alan Shah MD Unavailable Betty Stevens NP Unavailable Unavailable Clinic - [facility] Unavailabl e Encounter Details Date Type Department Care Team (Late st Contact Info) Description 12/05/2019 MyC Medical Advice [facility] [address] [address] Radha Roblero MD [address] [facility] [address] [place] [address] Social History Tobacco Use Types Packs/Day Years Used Date Smoking Tobacco: Former Cigarettes Q uit: 08/23/2010 Smokeless Tobacco: Never Alcohol Use Standard Drinks/Week Comments Yes 0 (1 standard drink = 0.6 oz pur e alcohol) 1/month PHQ-2 Answer Date Recorded PHQ-2 Score 0 08/31/2018 Sex and Gender Information Value Date Recorded Sex Assigned at Female 04/04/2021 10:28 PM CDT Gender Identity Female 04/04/2021 10:28 PM CDT Sexual Orientation Straight 04/04/2021 10 :28 PM CDT documented as of this encounter Plan of Treatment Not on file documented as of this encounter Visit Diagnoses Not on filedocumented in this encounter Additional Health Concerns Assessment Noted Time PHQ-9 Depression Total Score: 10 019 2:14 PM BUSINESS ASST documented as of this encounter Care Teams Mental Health Technician Relationship Specialty Start Date End Date Herson Rhodes MD PCP - General 06/02/11 [place] [address] [place] [address] Assigned OBGYN Provider 06/14/20 Betty Stevens NP Assigned PCP 01/28/23 12/13/23 [facility] [address] [place] [address] Assigned PCP 12/14/23 documented as of this encounter
--- OUTSIDE RECORDS SUMMARY | 2024-01-21 14:15 | XMS_ITS | Clinical Summary ---
Author Organization [facility] Address [address] [place] [address] Care Team Providers Care Supervisor Filter Assembly Name Role Phone Herson Rhodes MD Primary Care Provider [facility] Allergies Active Allergy Reactions Criticality Noted [...] Active fluticasone (FLONASE) 50 MCG/ACT nasal spray [place] 2 sprays into both nostrils daily Active [...] TDAP (Adacel,Boostrix) 04/07/2019,06/04/2008 Td (Adult), Adsorbed 12/19/1993 Family History Medical History Relation Comments Arthritis Father Asthma Father Chronic Obstructive Pulmonary Disease Father Depression Father Diabetes Other Moms side Thyroid Disease Sister Relation Status Comments Father Other Sister Social History Tobacco Use Types Packs/Day Years [...] 02/18/2023 1:10 PM CDT Plan of Treatment Health Maintenance Due Date Last Done Comments ADVANCE CARE PLANNING 1980 ANNUAL REVIEW OF HM ORDERS 1980 URINE DRUG SCREEN 1980 GLUCOSE 12/19/2018 12/20/2015 LIPID 2020 YEARLY PREVENTIVE VISIT 05/07/2022 05/07/20, 03/04/2020, 09/26/2018, Additional history exists COVID-19 Vaccine ( season) 2023 04/30/2022, 06/12/2021, 10/03/2020, Additional history exists MAMMO SCREENING 05/07/2023 05/07/2021 PHQ-2 (once per calendar year) 2023 02/18/2023, 05/07/2021, 05/07/2021, Additional history exists INFLUENZA VACCINE (Season Ended) 2024 07/03/2022, 07/10/2021, 07/10/2021, Additional history exists HPV TEST 05/07/2024 05/07/2021, 02/20, 09/26/2018, Additional history exists PAP 05/07/2024 05/07/2021, 02/20, 09/26/2018, Additional history exists DTAP/TDAP/TD IMMUNIZATION (5 - Td or Tdap) 04/07/2029 04/07/2019, 06/04/2008, 06/04/2008, Additional history exists HEPATITIS B IMMUNIZATION Completed 002, 05/17/2000, 04/16/2000 HEPATITIS C SCREENING Completed 01/28/2010 HIV SCREENING Completed 01/28/2010 HPV IMMUNIZATION Aged Out No longer e ligible based on patient's age to complete this topic IPV IMMUNIZATION Aged Out No longer e ligible based on patient's age to complete this topic MENINGITIS IMMUNIZATION Aged Out No l onger eligible based on patient's age to complete this topic Pneumococcal Vaccine: Pediatrics (0 to 5 Years) and At-Risk Patients (6 to 64 Years) Aged Out No longer eligible based on patient's age to complete this topic RSV MONOCLONAL ANTIBODY Aged Out No l onger eligible based on patient's age to complete this topic Medical Devices Implanted Type Area Hand Knitter Device Identifier Shelf Expiration Date Model / Serial / Lot Primeadvanced Surescan Mri Neurostimulator Implanted:Qty: 1 on 02/14/2014 by Aj Perkins MD at [facility] Left: Buttocks [employer] 03/19/2015 [id number] / [id number] / Explanted Type Area Hand Knitter Device Identifier Shelf Expiration Date Model / Serial / Lot Prime Advanced Neurostimulator Implanted:Qty: 1 on 03/16/2011 at [facility] Explanted:Qty: 1 on 02/14/2014 by Aj Perkins MD at [facility] Left: Buttocks [employer] 03/05/2012 [id number] / [id number] / Description:[facility] ulti program Neurostimulator [employer] Procedures Procedure Name [...] component of this testing was completed at [facility] 05/09/2021 2:32 PM CDT [facility] Brushing VAGINAL STRUCTURE / Unknown 05/07/2021 11:50 AM CDT 05/07/2021 12:21 PM CDT Alan Shah MD LAB - BEAKER AP [facility] [address] [place] [address], [facility] [phone] * HPV High Risk Types DNA Cervical (05/07/2021 11:50 AM CDT) Other HR HPV Negative Negative 05/13/2021 2:50 PM CDT [facility] HPV16 DNA Negative Negative 05/13/2021 2:50 PM CDT [facility] HPV18 DNA Negative Negative 05/13/2021 2:50 PM CDT [facility] FINAL DIAGNOSIS This patient's sample is negative for HPV DNA. This test was developed and its performance characteristics determined by the [facility], Molecular Diagnostics Laboratory. It has [...] followup is recommended. 05/13/2021 2:50 PM CDT [facility] Brushing VAGINAL STRUCTURE / Unknown Non-blood Collection / Unknown 05/07/2021 11:50 AM CDT 05/12/2021 8:50 AM CDT Alan Shah MD LAB - BLOOD ORDERABL ES [facility]ST[facility] [address] [facility], [address] [place] [address], [facility] [phone] * MA Screening Digital Bilateral (05/07/2021 11:20 [...] Advance Directives For more information, please contact: [phone] * Full Code (Latest Code Status on File) Date Activated Date Inactivated Comments 12/19/2015 3:02 PM 12/20/2015 1:10 PM Care Teams Supervisor Filter Assembly Relationship Specialty Start Date End Date Herson Rhodes MD PCP - General 06/02/11 Clinic - [facility] [address] [place] [address] Assigned PCP 12/14/23
[2024-01-22 13:14] LABS: Estradiol Premenol Female 83 pg/mL
[2024-01-24 02:05] LABS: Follicle Stimulating Hormone 28.8 IU/L
== END 2024-01-21 14:11 | disposition home or self-care (01) ==
LOC: NPINS 14:10
PROVIDERS: PCP Family Medicine
DX: N95.9 Unspecified menopausal and perimenopausal disorder (principal)
CPT/HCPCS: 82670; 83001

== ENCOUNTER 2024-04-28 09:31 | Outpatient (CLI) | payer OTHER, SELFPAY ==
--- OUTSIDE RECORDS SUMMARY | 2024-04-28 09:36 | XMS_ITS | Clinical Summary ---
Author Organization [facility] Address [place], [place] [address] Care Team Providers Care Wiring Inspector Name Role Phone Herson Rhodes MD Primary [...] 15-65 1995 Tetanus booster 06/04/2018 06/04/2008, 12/19/1993 BMI (ht and wt on same day) for age 18+ 07/22/2023 07/22/2022, 10/29/2021, 07/01/2020, Additional history exists Depression screening for age 12+ 01/22/2024 01/21/2023, 01/14/2023, 01/13/2023, Additional history exists COVID-19 vaccine series ( season) 2024 04/30/2022, 06/12/2021, 10/03/2020, Additional history exists Influenza for age 9-49 [...] Garcia MD Medical Devices Implanted Type Area Outboard Motor Tester Device Identifier Shelf Expiration Date Model / Serial / Lot Stimulator Spinal Primeadvanedsurescan Mri - [id number] Implanted:Qty: 1 on 12/02/2017 by Herson Lala MD at [facility] Left: Flank Medtronic Pain Therapy 12/18/2018 [id number]# / [id number] / Stimulator Spinal Intellis Mri - [id number] Implanted:Qty: 1 on 06/19/2020 by Herson Lala MD at [facility] Left: Flank [employer]onic Pain Therapy 04/19/2021 [id number] / / [id number] Envlp Neuro Tyrx Absorb Antibacterial - [id number] Implanted:Qty: 1 on 06/19/2020 by Herson Lala MD at [facility] Left: Flank [employer] 01/10/2021 [id number] / / [id number] Explanted Type Area Outboard Motor Tester Device Identifier Shelf Expiration Date Model / Serial / Lot [id number] - [id number] Explanted:Qty: 1 on 12/02/2017 at [facility] Left: Flank Medtronic [id number] / [id number] / Description:Spinal cord gene rator battery Procedures Procedure Name Priority Date/Time Associated Diagnosis Comments ANTI HCV Timed 08/21/2004 9:55 AM DOUGHNUT DOUGH MIXER from Last 3 Months or Most Recently Relevant to Health Maintenance Results * ANTI HCV (08/21/2004 9:55 AM DOUGHNUT DOUGH MIXER) ANTI HCV Non-reactiv e [facility] [place]NOTE 2] 08/21/2004 9:55 AM DOUGHNUT DOUGH MIXER 08/21/2004 7:46 PM DOUGHNUT DOUGH MIXER Narrative [facility] [place][NOTE 2] - 08/26/2004 1:39 PM DOUGHNUT DOUGH MIXER Testing Performed By [place], [place] Radha Huff STATISTICAL MACHINE SERVICER SEND OUTS [facility] [place][NOTE 2] [address] [place] [address] from Last 3 Months or Most Recently [...] 7:00 AM 07/21/2009 2:26 AM Care Teams Wiring Inspector Relationship Specialty Start Date End Date Herson Rhodes MD [address] [place] [address] PCP - General Family Practice 06/10/20
--- OUTSIDE RECORDS SUMMARY | 2024-04-28 09:36 | XMS_ITS | Referral Summary ---
Author Organization [facility] Address [address] [place] [address] Care Team Providers Care Auto Tire Recapper Name Role Phone Unavailable Primary Care Provider Unavailabl e Source Comments Patient records contain information from all sites at [facility]. For routine questions regarding patient records, call [phone] during business hours, M-F 8:00 AM - 5:00 PM Central Time. Record requests for emergency care only can be directed to [phone] at any time.[facility] Immunizations Name Administration Dates Next Due DTaP [...] Comments Blood Pressure 122/80 07/01/2015 11:34 AM SUPERVISOR CEREAL Pulse 80 07/01/2015 11:34 AM SUPERVISOR CEREAL Temperature - - Respiratory Rate 14 07/01/2015 11:34 AM SUPERVISOR CEREAL Oxygen Saturation - - Inhaled Oxygen Concentration - - Weight 104 kg (229 lb 4.5 oz) 07/01/2015 11:34 A M SUPERVISOR CEREAL Height 166 cm (5' 5.35) 07/29/2015 2:10 PM SUPERVISOR CEREAL Body Mass Index 37.74 07/01/2015 11:34 AM SUPERVISOR CEREAL Plan of Treatment Not on file
--- OUTSIDE RECORDS SUMMARY | 2024-04-28 09:36 | XMS_ITS ---
Author Organization [facility] Address [address] [place] [address] Care Team Providers Care Engineering Production Worker Name Role Phone Unavailable Unavailable Unavailable Surgery Details Not on file Complications Check Surgery Details section. Procedure Estimated Blood Loss Check Surgery Details section. Procedure Findings Check Surgery Details section. Procedure Specimens Taken Check Surgery Details section.
--- OUTSIDE RECORDS SUMMARY | 2024-04-28 09:36 | XMS_ITS | Clinical Summary ---
Author Organization [facility] Address [address] [place] [address] Care Team Providers Care Core Checker Name Role Phone Herson Rhodes MD Primary Care Provider [phone] [facility] Allergies Active Allergy Reactions Criticality [...] Active fluticasone (FLONASE) 50 MCG/ACT nasal spray [place] 2 sprays into both nostrils daily Active [...] 12/20/2015 LIPID 2020 YEARLY PREVENTIVE VISIT 05/07/2022 05/07/20 21, 03/04/2020, 09/26/2018, Additional history exists MAMMO SCREENING 05/07/2023 05/07/2021 PHQ-2 (once per calendar year) 2023 02/18/2023, 05/07/2021, 05/07/2021, Additional history exists COVID-19 Vaccine (5 2022-24 season) 2024 04/30/2022, 06/12/2021, 10/03/2020, Additional history exists INFLUENZA VACCINE (#1) 2024 , 07/10/2021, 07/10/2021, Additional history exists HPV TEST [...] this topic Medical Devices Implanted Type Area Manager Of Security Device Identifier Shelf Expiration Date Model / Serial / Lot Primeadvanced Surescan Mri Neurostimulator Implanted:Qty: 1 on 02/14/2014 by Aj Perkins MD at [facility] Left: Buttocks [employer] 03/19/2015 [id number] / [id number] / Explanted Type Area Manager Of Security Device Identifier Shelf Expiration Date Model / Serial / Lot Prime Advanced Neurostimulator Implanted:Qty: 1 on 03/16/2011 at [facility] Explanted:Qty: 1 on 02/14/2014 by Aj Perkins MD at [facility] Left: Buttocks [employer] 03/05/2012 [id number] / [id number] / Description:Prime advanced M ulti program Neurostimulator [employer]onic Procedures Procedure Name [...] Malignancy (NILM) 05/09/2021 2:32 PM CDT [facility] Specimen Adequacy Satisfactory for evaluation, endocervical/paul sformation zone component absent 05/09/2021 2:32 PM CDT [facility] Clinical Information complete hysterectomy 05/09/2021 2:32 PM CDT [facility] Reflex Testing Yes regardless of result 05/09/2021 2:32 PM CDT [facility] Previous Abnormal? No 05/09/2021 2:32 PM CDT [facility] Performing Labs The technical component of this testing was completed at [facility] 05/09/2021 2:32 PM CDT [facility] Brushing VAGINAL STRUCTURE / Unknown 05/07/2021 11:50 AM CDT 05/07/2021 12:21 PM CDT Alan Shah MD LAB - BEAKER AP Performing Organization Address [facility]/ZIP Co de Phone Number [facility] [address] [place] [phone], [facility] [phone] * HPV High Risk Types DNA Cervical (05/07/2021 11:50 AM CDT) Other HR HPV Negative Negative 05/13/2021 2:50 PM CDT [facility] HPV16 DNA Negative Negative 05/13/2021 2:50 PM CDT [facility] HPV18 DNA Negative Negative 05/13/2021 2:50 PM CDT [facility] [employer] [facility] FINAL DIAGNOSIS This patient's sample is negative for HPV DNA. This test was developed and its performance characteristics determined by the [facility], Molecular Diagnostics Laboratory. It has [...] followup is recommended. 05/13/2021 2:50 PM CDT [facility] [employer] Brushing VAGINAL STRUCTURE / Unknown Non-blood Collection / Unknown 05/07/2021 11:50 AM CDT 05/12/2021 8:50 AM CDT Alan Shah MD LAB - BLOOD ORDERABL ES Performing Organization Address City/[facility]/ZIP Co de Phone Number [facility] [employer] [address] [facility], [address] [place] [address] [phone] * MA Screening Digital Bilateral (05/07/2021 11:20 [...] the patient. Alan Shah MD IMG MAMMOGRAPHY MARIA TERESAE CAITLYN * (ABNORMAL) Glucose by meter (12/20/2015 [...] Advance Directives For more information, please contact: [phone] * Full Code (Latest Code Status on File) Date Activated Date Inactivated Comments 12/19/2015 3:02 PM 12/20/2015 1:10 PM Care Teams Core Checker Relationship Specialty Start Date End Date eHrson Rhodes MD PCP - General 06/02/11 Clinic - [facility] [address] [place] [address] Assigned PCP 12/14/23
--- OUTSIDE RECORDS SUMMARY | 2024-04-28 09:36 | XMS_ITS | Referral Summary ---
Author Organization [facility] Address [address] [place] [address] Care Team Providers Care Cardiology Technologist Name Role Phone Herson Rhodes MD Primary Care Provider [facility] Allergies Active Allergy Reactions Criticality [...] Active fluticasone (FLONASE) 50 MCG/ACT nasal spray [place] 2 sprays into both nostrils daily Active [...] on file Medical Devices Implanted Type Area Shot Peen Operator Device Identifier Shelf Expiration Date Model / Serial / Lot Primeadvanced Surescan Mri Neurostimulator Implanted:Qty: 1 on 02/14/2014 by Aj Perkins MD at [facility] Left: Buttocks [employer] 03/19/2015 [id number] / [id number] / Explanted Type Area Shot Peen Operator Device Identifier Shelf Expiration Date Model / Serial / Lot Prime Advanced Neurostimulator Implanted:Qty: 1 on 03/16/[address] [facility] Explanted:Qty: 1 on 02/14/2014 by Aj Perkins MD at [facility] Left: Buttocks [employer] 03/05/2012 [id number] / [id number] / Description:[facility] ulti program Neurostimulator [employer] Procedures Procedure Name [...] component of this testing was completed at [facility] 05/09/2021 2:32 PM CDT [facility] Brushing VAGINAL STRUCTURE / Unknown 05/07/2021 11:50 AM CDT 05/07/2021 12:21 PM CDT Alan Shah MD LAB - BEAKER AP [facility] [address] [place] [address], [facility] [phone] * HPV High Risk Types DNA Cervical (05/07/2021 11:50 AM CDT) Other HR HPV Negative Negative 05/13/2021 2:50 PM CDT [facility] [employer] HPV16 DNA Negative Negative 05/13/2021 2:50 PM CDT [facility] HPV18 DNA Negative Negative 05/13/2021 2:50 PM CDT [facility] FINAL DIAGNOSIS This patient's sample is negative for HPV DNA. This test was developed and its performance characteristics determined by the [facility], Molecular Diagnostics Laboratory. It has not been [...] followup is recommended. 05/13/2021 2:50 PM CDT [facility] [employer] Brushing VAGINAL STRUCTURE / Unknown Non-blood Collection / Unknown 05/07/2021 11:50 AM CDT 05/12/2021 8:50 AM CDT Alan Shah MD LAB - BLOOD ORDERABL ES [facility] Molecular Diagnostics Lab [address] [facility] [place] [address], [facility] [phone] * MA Screening Digital Bilateral (05/07/2021 11:20 [...] Advance Directives For more information, please contact: [phone] * Full Code (Latest Code Status on File) Date Activated Date Inactivated Comments 12/19/2015 3:02 PM 12/20/2015 1:10 PM Care Teams Cardiology Technologist Relationship Specialty Start Date End Date Herson Rhodes MD PCP - General 06/02/11 Clinic - [facility] [address] [place] [address] Assigned PCP 12/14/23
--- OUTSIDE RECORDS SUMMARY | 2024-04-28 09:36 | XMS_ITS | Clinical Summary ---
Author Organization [facility] Address [address] [place] [address] Care Team Providers Care Channel Lip Wetter Name Role Phone Unavailable Primary Care Provider Unavailabl e Source Comments Patient records contain information from all sites at [facility]. For routine questions regarding patient records, call [phone] during business hours, M-F 8:00 AM - 5:00 PM Central Time. Record requests for emergency care only can be directed to [phone] at any time.[facility] Immunizations Name Administration Dates Next Due [...] Comments Blood Pressure 122/80 07/01/2015 11:34 AM MEDIA LAW FACULTY MEMBER Pulse 80 07/01/2015 11:34 AM MEDIA LAW FACULTY MEMBER Temperature - - Respiratory Rate 14 07/01/2015 11:34 AM MEDIA LAW FACULTY MEMBER Oxygen Saturation - - Inhaled Oxygen Concentration - - Weight 104 kg (229 lb 4.5 oz) 07/01/2015 11:34 A M MEDIA LAW FACULTY MEMBER Height 166 cm (5' 5.35) 07/29/2015 2:10 PM MEDIA LAW FACULTY MEMBER Body Mass Index 37.74 07/01/2015 11:34 AM MEDIA LAW FACULTY MEMBER Plan of Treatment Health Maintenance Due Date Last Done Comments HIV Screening 1980 Hepatitis C Screening 1980 Mammogram 1980 Depression Screening (Annual PHQ-2) 08/23/2023 COVID-19 Vaccine ( season) 2024 04/30/2022, 06/12/2021, 10/03/2020, Additional history exists Cervical Cancer Screening 05/07/20242020, 03/04/2020, 09/26/2018 Influenza Vaccine (#1) 2024 3, 07/03/2022, 07/10/2021, Additional history exists Lipid (Cholesterol) Screening 01/02/2028 01/01/2023 DTaP,Tdap,and Td Vaccines (3 - Td or Tdap) 04/07/2029 04/07/2019, 06/04/2008, 06/04/2008 Hepatitis B Vaccines Completed 01/30/2002, 05/17/2000, 04/16/2000 HPV Vaccines Aged Out No longer eligi ble based on patient's age to complete this topic Pneumococcal vaccine (0-64 years) Aged Out No longer eligible based on patient's age to complete this topic [place], [place] [id number]
--- OUTSIDE RECORDS SUMMARY | 2024-04-28 09:36 | XMS_ITS | Encounter Summary ---
Author Organization [facility] Address [address] [place] [address] Care Team Providers Care Generation Manager Name Role Phone Herson Rhodes MD Primary Care Provider [phone] Alan Shah MD Unavailable Betty Stevens NP Unavailable Unavailable Clinic - [facility] Unavailabl e Encounter Details Date Type Department Care Team (Late st Contact Info) Description 12/05/2019 MyC Medical Advice [facility] [address] [address] Radha Roblero MD [address] [facility] [address] [place] [address] Social History Tobacco Use Types [...] Depression Total Score: 10 019 2:14 PM INTERNSHIP COORDINATOR documented as of this encounter Care Teams Generation Manager Relationship Specialty Start Date End Date Herson Rhodes MD PCP - General 06/02/11 [place] [address] [place] [address] Assigned OBGYN Provider 06/14/20 Betty Stevens NP Assigned PCP 01/28/23 12/13/23 [facility] [address] [place] [address] Assigned PCP 12/14/23 documented as of this encounter
== END 2024-04-28 09:32 | disposition home or self-care (01) ==
PROVIDERS: PCP Family Medicine; Visit Provider Family Medicine
DX: E11.9 Type 2 diabetes mellitus without complications (principal); I10 Essential (primary) hypertension; E66.9 Obesity, unspecified; R53.83 Other fatigue; M25.50 Pain in unspecified joint
CPT/HCPCS: 80048; 82306; 84443; 85025; 85651; 86039; 86431

== ENCOUNTER 2024-05-01 10:10 | Outpatient (REF) | payer OTHER, SELFPAY ==
[2024-05-01 10:43] LABS: Albumin* 4.4 g/dL (3.3-5.0)
[2024-05-01 10:44] LABS: Chloride* 105 mmol/L (96-114); Hemoglobin A1C* 6.1 % (0-5.6); Potassium* 4.4 mmol/L (3.6-5.1); Sodium* 139 mmol/L (135-149)
[2024-05-01 10:45] LABS: Basophils Absolute Auto 0.04 K/uL (0.00-0.30); Basophils Percent Auto 0.8 % (0.0-3.0); Eosinophils Absolute Auto 0.11 K/uL (0.00-0.50); Eosinophils Percent Auto 2.2 % (0.0-7.0); Hematocrit 35.6 % (33.0-51.0); Hemoglobin* 10.7 gm/dL (12.0-16.0); Immature Granulocytes Abs Auto 0.01 K/uL (0.00-0.30); Immature Granulocytes Pct Auto 0.2 %; Lymphocytes Absolute Auto 1.48 K/uL (0.90-2.90); Lymphocytes Percent Auto 29.4 % (20-44); Mean Corpuscular HGB Conc 30 gm/dL (32-36); Mean Corpuscular Hemoglobin 27 pg (26-34); Mean Corpuscular Volume 89 fL (80-100); Monocytes Percent Auto 10.7 % (0.0-11.0); Neutrophils Absolute Auto 2.86 K/uL (1.7-7.0); Neutrophils Percent Auto 56.7 % (42.0-72.0); Platelet Count* 386 K/uL (140-440); Red Blood Count 3.99 m/uL (4.00-5.20); White Blood Count* 5.04 K/uL (4.50-11.00)
[2024-05-01 10:46] LABS: Alanine Aminotransferase* 27 U/L (4-35); Alkaline Phosphatase* 91 U/L (40-150); Anion Gap 6 mEq/L (7-15); Aspartate Amino Transferase* 29 U/L (12-35); Bilirubin Total* 0.2 mg/dL (0.1-1.5); Blood Urea Nitrogen* 22 mg/dL (5-24); Carbon Dioxide* 28 mmol/L (20-32); Cholesterol* 253 mg/dL (90-199); Creatinine* 0.9 mg/dL (0.5-1.5); Estimated Glomerular Filt Rate 81 ml/min; Glucose* 101 mg/dL (60-115); Total Protein* 7.1 g/dL (6.0-8.3)
[2024-05-01 10:47] LABS: Calcium* 9.2 mg/dL (8.4-10.6); HDL Cholesterol* 57 mg/dL (>=50); LDL Cholesterol Calculated 161 mg/dL (<100); Triglycerides* 175 mg/dL (40-149)
[2024-05-01 10:49] LABS: Slide Review Reflex No
[2024-05-01 11:04] LABS: Free T4 Free Thyroxine* 0.65 ng/dL (0.70-1.85)
[2024-05-02 19:35] LABS: Free T3 2.8 pg/mL (2.5-4.3)
== END 2024-05-01 10:11 | disposition home or self-care (01) ==
LOC: NPINS 10:10
PROVIDERS: PCP Family Medicine; Visit Provider Nurse Practitioner Psychiatric/Mental Health
DX: F43.10 Post-traumatic stress disorder, unspecified (principal)
CPT/HCPCS: 80053; 80061; 83036; 84439; 84443; 84481; 85025

== ENCOUNTER 2024-05-02 16:51 | Outpatient (CLI) | payer OTHER, SELFPAY ==
--- NOTE | 2024-05-02 17:00 | CRLHL7_ITS ---
For Patients: As a result of the Century Cures Act, medical imaging exams and procedure reports are released immediately into your electronic medical record. You may view this report before your referring provider. If you have questions, please contact your health care provider. BILATERAL SCREENING MAMMOGRAM WITH COMPUTER-AIDED DETECTION AND TOMOSYNTHESIS TECHNIQUE: CC and MLO views were obtained. These mammographic images have been obtained using full-field digital technique. These mammographic images were interpreted with the benefit of computer-aided detection. Breast Tomosynthesis was used in this interpretation. COMPARISON FILM: 04/23/23, 05/12/23. FINDINGS: The breasts are almost entirely fatty. IMPRESSION: There is no radiographic evidence for malignancy. ASSESSMENT: BI-RADS Category 1: Negative RECOMMENDATION: Routine screening mammogram in 1 year. A lay language report of this examination will be provided to the patient. Herson Forde M.D. Diagnostic Radiologist [email or web address] SP/Dictated by: Herson Forde MD @ 05/04/2024 11:20:00 AM (Electronically Signed)
== END 2024-05-02 16:52 | disposition home or self-care (01) ==
LOC: MAMMO 16:51
PROVIDERS: PCP Family Medicine; Visit Provider Obstetrics & Gynecology
DX: Z12.31 Encounter for screening mammogram for malignant neoplasm of breast (principal)
CPT/HCPCS: 77063; 77067

== ENCOUNTER 2024-05-15 19:50 | Outpatient (CLI) | payer OTHER, SELFPAY ==
--- OUTSIDE RECORDS SUMMARY | 2024-05-15 19:53 | XMS_ITS | Encounter Summary ---
Author Organization [facility] Address [address] [place] [address]. [place] [address] Care Team Providers Care Clinical Research Director Name Role Phone Herson Rhodes MD Primary Care Provider [facility] Encounter Details Date Type Department Care Team (Latest Contact Info) Description 05/13/2024 Travel Social History Tobacco Use Types Packs/Day Years Used Date Smoking Tobacco: Former Cigarettes Q uit: 08/23/2010 Smokeless Tobacco: Never Alcohol Use Standard Drinks/Week Comments Yes 0 (1 standard drink = 0.6 oz pur e alcohol) 1/month PHQ-2 Answer Date Recorded PHQ-2 Score 0 05/09/2024 Adolescent Education Answer Date Record ed Getting School Help Needed Not on file 06/09 Sex and Gender Information Value Date Recorded Sex Assigned at Female 04/04/2021 10:28 PM CDT Gender Identity Female 04/04/2021 10:28 PM CDT Sexual Orientation Straight 04/04/2021 10 :28 PM CDT documented as of this encounter Plan of Treatment Upcoming Encounters Date Type Department Care Team (Late st Contact Info) Description 05/18/2024 10:00 AM CDT Office Visit [facility] Care [address] [place] [phone] Miriam Melton APRN [facility] [address] [facility] [address] [place] [address] 05/22/2024 1:00 PM CDT Virtual Visit [facility]ariat[facility] Care [place] [address] [facility] 200 [place] [address] Dung Alva, PhD [employer] [address] [place] [address] 06/12/2024 9:00 AM CDT Virtual Visit [facility] [place] [address] [facility] [address] [place] [address] Dung Alva, PhD [employer] [address] [place] [address] 07/21/2024 1:00 PM RHEOSTAT ASSEMBLER Virtual Visit [facility] and Bariatrics Care [place] [address] [place] [address] 200 [place] [address] Hien Flood, RD [address] [facility] [address] [place] [address] documented as of this encounter Visit Diagnoses Not on filedocumented in this encounter Additional Health Concerns Assessment Noted Time PHQ-9 Depression Total Score: 2 05/07/20 21 11:37 AM CDT documented as of this encounter Care Teams Clinical Research Director Relationship Specialty Start Date End Date Herson Rhodes MD PCP - General 06/02/11 Clinic - [facility] [address] [place] [address] Assigned PCP 12/14/23 documented as of this encounter
--- OUTSIDE RECORDS SUMMARY | 2024-05-15 19:53 | XMS_ITS | Encounter Summary ---
Author Organization [facility] Address [address] [place] [address]. [place] [address] Care Team Providers Care Student Liaison Officer Name Role Phone Herson Rhodes MD Primary Care Provider [facility] Encounter Details Date Type Department Care Team (Latest Contact Info) Description 05/04/2024 Travel Social History Tobacco Use Types Packs/Day [...] Description 05/18/2024 10:00 AM CDT Office Visit [facility] Care [address] 200 [place] [phone] Miriam Melton APRN [facility] [address] [facility] 200 [place] [address] 05/22/2024 1:00 PM CDT Virtual Visit [facility] [place] [address] [facility] 200 [place] [address] Dung Alva, PhD [employer] [address] [place] [address] 06/12/2024 9:00 AM CDT Virtual Visit [facility] [place] [address] [facility] [address] [place] [address] Dung Alva, PhD [employer] [address] [place] [address] 07/21/2024 1:00 PM SCALLOP RAKER Virtual Visit [facility] and Bariatrics Care [place] [address] [place] [address] 200 [place] [address] Hien Flood, RD [address] [facility] [address] [place] [address] documented as of this encounter Visit Diagnoses Not on filedocumented in this encounter Additional Health Concerns Assessment Noted Time PHQ-9 Depression Total Score: 2 05/07/20 21 11:37 AM CDT documented as of this encounter Care Teams Student Liaison Officer Relationship Specialty Start Date End Date Herson Rhodes MD PCP - General 06/02/11 Clinic - [facility] [address] [place] [address] Assigned PCP 12/14/23 documented as of this encounter
--- OUTSIDE RECORDS SUMMARY | 2024-05-15 19:53 | XMS_ITS | Referral Summary ---
Author Organization [facility] Address [address] [place] [address] Care Team Providers Care Crystal Syrup Maker Name Role Phone Unavailable Primary Care Provider Unavailabl e Source Comments Patient records contain information from all sites at [facility]. For routine questions regarding patient records, call [phone] during business hours, M-F 8:00 AM - 5:00 PM Central Time. Record requests for emergency care only can be directed to [phone] at any time.[facility] Immunizations Name Administration Dates Next Due DTaP [...] Comments Blood Pressure 122/80 07/01/2015 11:34 AM SEMICONDUCTOR PACKAGES TESTER Pulse 80 07/01/2015 11:34 AM SEMICONDUCTOR PACKAGES TESTER Temperature - - Respiratory Rate 14 07/01/2015 11:34 AM SEMICONDUCTOR PACKAGES TESTER Oxygen Saturation - - Inhaled Oxygen Concentration - - Weight 104 kg (229 lb 4.5 oz) 07/01/2015 11:34 A M SEMICONDUCTOR PACKAGES TESTER Height 166 cm (5' 5.35) 07/29/2015 2:10 PM SEMICONDUCTOR PACKAGES TESTER Body Mass Index 37.74 07/01/2015 11:34 AM SEMICONDUCTOR PACKAGES TESTER Plan of Treatment Not on file
--- OUTSIDE RECORDS SUMMARY | 2024-05-15 19:53 | XMS_ITS | Encounter Summary ---
Author Organization [facility] Address [address] [place] [address]. [place] [address] Care Team Providers Care Machine Binder Stripper Name Role Phone Herson Rhodes MD Primary Care Provider [facility] Unavailabl e Reason for Referral * Consultation (Routine) - Pending Review Specialty Diagnoses / Procedures Referred By Abdirizak trimble Referred To Contact Surgery Diagnoses Duodenal stenosis Kashif Su MD [facility] [address] [place] [address] [address] [place] [address] Referral ID Status Reason Start Date Expiration Date V isits Requested Visits Authorized [id number] Pending Review 05/02/2024 05/02/2025 [address] Saenz Question Answer Reason for Referral: Intestinal Intestinal Reason: Other My Clinical Question Is: duodenal stenosis Preferred Location: [facility] Gen Surg Scheduling Instructions: [facility] will call you to coordinate your care as prescribed by your provider. If you don't hear from a goodwill representative within 2 business days, please call , option 2. Comments Please be aware that coverage of these services is subject to the terms and limitations of your health insurance plan. Call member services at your health plan with any benefit or coverage questions. [facility] will call you to coordinate your care as prescribed by your provider. If you don't hear from a goodwill representative within 2 business days, please call , option 2. Encounter Details Date Type Department Care Team (Late st Contact Info) Description 05/02/2024 Transcribe Orders GENERIC EXTERNAL DATA DEPARTMENT Go, Kashif Wiley MD [facility] Leeroy [facility] [address] [place] [address] Duodenal stenosis (Primary Dx) Social History Tobacco Use Types Packs/Day Years [...] Description 05/18/2024 10:00 AM CDT Office Visit [facility] [address] [place] [address] Miriam Melton, DEE [facility] [address] [facility] 200 [place] [address] 05/22/2024 1:00 PM CDT Virtual Visit [facility] [address] [place] [address] [place] [phone] Dung Alva, PhD [employer] [address] [facility] [address] [place] [address] 06/12/2024 9:00 AM CDT Virtual Visit [facility] [address] [place] [address] Dung Alva, PhD [employer] [address] [place] [address] 07/21/2024 1:00 PM SUPERVISOR INSTANT POTATO PROCESSING Virtual Visit [facility] [place] [address] [facility] [address] [place] [address] Hien Flood, RD [address] [facility] [address] [place] [address] Scheduled Referrals Name Type Priority Associated Diagnoses Orde r Schedule Adult Gen Surg Die Repairer Stamping Referral Referral Routine Duodenal stenosis Expected: 05/02/2024 (Approximate), Expires: 05/02/2025 documented as of this encounter Visit Diagnoses Diagnosis Duodenal stenosis- Primary Other obstruction of duodenum documented in this encounter Additional Health Concerns Assessment Noted Time PHQ-9 Depression Total Score: 2 05/07/20 21 11:37 AM CDT documented as of this encounter Care Teams Machine Binder Stripper Relationship Specialty Start Date End Date Herson Rhodes MD PCP - General 06/02/11 Clinic - [facility] [address] [place] [address] Assigned PCP 12/14/23 documented as of this encounter
--- OUTSIDE RECORDS SUMMARY | 2024-05-15 19:53 | XMS_ITS | Patient Health Record ---
Author Organization [facility] Address [address] [place] [address] Care Team Providers Care Therapy Assistant Name Role Phone None, No PCP Primary Care Provider Adenike Spain [phone] Allergies Allergen (clinical drug ingredient) Drug/Non Drug Allergy documented on EMR Reaction Allergy Type Onset Date Status promethazine Phenergan Unknown Drug Allergy Acti ve Compazine Unknown Drug Allergy Active Results Component Value Reference Range Notes Sensitive Estradiol (IH) Reviewed date:11/08/2023 11:45:38 AM Interpretation: Performing Lab: Notes/Report: Access 2 ([id number]), Access 2 Relaylink FSH (IH) Reviewed date:11/08/2023 11:46:50 AM Interpretation: Performing Lab: Notes/Report: Access 2 ([id number]), Access 2 Relaylink Reason For Referral No Information Medications Medication SIG (Take, Route, Frequency, Duration) Notes Start Date End Date Status Estradiol 0.05 MG/24HR 1 patch to skin Transdermal Two times a Week for 30 days Active Celecoxib 200 mg Active Metoprolol Succinate 100 mg Active Omeprazole 40 Active Baclofen 20 mg Active OLANZapine 5 mg Active Fluticasone Propionate HFA Active Escitalopram Oxalate 20 mg Active Topiramate 100 Active Vivelle Transdermal Estradiol 0.5 MGS/24 hours Active traMADol HCl 100 Active DULoxetine HCl 60 mg Activ e clonazePAM 1 mg Active Social History Tobacco Use: Social History Observation Description Date Details (start date - stop date) Never Smoker NA - NA Tobacco Use/Smoking Question Answer Notes Are you a nonsmoker Alcohol Screen (Audit-C) Question Answer Notes Did you have a drink containing alcohol in the p ast year? No Points 0 Interpretation Negative Problems Problem Type SNOMED Code ICD Code Onset Dates Problem Status W/U Status Risk Notes Problem Adult health examination (739429346) Annual visit for general adult medical examination without abnormal findings (Z00.00) Active confirmed Problem Menopause (271096658) Menopause (Z78.0) Active confirmed Problem Menopausal and postmenopausal disorder (N95.9) Active confirmed Problem 425377418 Obesity, Class III, BMI 40-49.9 (morbid obesity) (E66.01) Active confirmed Problem 917719943 S/P laparoscopic hysterectomy (Z90.710) Active confirmed Problem 876716522 Surgical menopause, asymptomatic (E89.40) Active confirmed Vital Signs Blood pressure diastolic 78 mm Hg 01/27/2024 Height 64.50 in 01/27/2024 Blood pressure systolic 132 mm Hg 01/27/2024 Weight 280 lbs 01/27/2024 BMI 47.31 kg/m2 01/27/2024 Encounters Encounter Location Date Provider Diagnosis [address] [address] 01/27/2024 Adenike Hatfield Hormone replacement therapy (HRT) Z79.890 ; S/P laparoscopic hysterectomy Z90.710 and Obesity, Class III, BMI 40-49.9 (morbid obesity) E66.[address] [address] 10/28/2023 Adenike Hatfield Surgical menopause, asymptomatic E89.40 and Hormone replacement therapy (HRT) Z79.[address] [address] 10/28/2023 Adenike Hatfield Menopausal and postmenopausal disorder N95.9 [facility] [address] [place] [address] 01/19/2024 Adneike Hatfield [address] [place], [place] [id number] 03/29/2024 Adenike Hatfield Assessments Encounter Date Diagnosis (ICD Code) Assessment Notes Treat ment Notes Treatment Clinical Notes 10/28/2023 Hormone replacement therapy (HRT) (ICD-10 - Z79.890) Per hr Psychiatrist the patient needs to receive a higher dose of Estrogen when she is taking Lamictal. I discussed using the Estradiol Patch instead with her as it bypasses the liver and goes directly into the blood stream. She is willing to try it. Use of the hormonal patch was discussed with her. Today her Estradiol and FSH will be taken. She would repeat it in three months at her clinic in [place] and follow-up. All of her questions were addressed 10/28/2023 Surgical menopause, asymptomatic (ICD-10 - E89.40) The patient stated that she had a Hysterectomy with removal of her tubes and Ovaries while in her 30s and has been taking Estradiol 1 MG orally since. She is not experiencing any menopausal symptoms. She has a major depressive disorder and is on numerous medications to treat it. 10/28/2023 Menopausal and postmenopausal disorder (ICD-10 - N95.9) 01/27/2024 Hormone replacement therapy (HRT) (ICD-10 - Z79.890) It was explained to the patient that her test result have improved on the patch her Estrogen level was 53 and is now 83. The improvement is reflected in the FSH which went from57.4 in October to 28.8. The target level for her FSH is 22, and she is getting there. It was explained to her that I cannot find any Mammogram results in her chart, we requested them from her [place] clinic at her last visit. She went into her chart and stated that her last Mammogram was 03/12/24. She was reminded that she needs an annual Mammogram when on hormones. She is to have repeat labs in 6 months and a follow-up visit All of her questions were addressed 01/27/2024 S/P laparoscopic hysterectomy (ICD-10 - Z90.710) The patient had a hysterectomy with removal of her tubes and ovaries for Endometriosis. She does not require Progesterone. 01/27/2024 Obesity, Class III, BMI 40-49.9 (morbid obesity) (ICD-10 - E66.01) The patient is working with her therapist on weight loss, which she stated is secondary to medication for her mental health condition 10/28/2023 Other Time spent on patient care including - review of previous records - preparation for visit - ordering medications, labs or imaging - documenting visit - discussion of care with another health career and transition teacher if indicated - direct face to face time with patient including obtaining relevant history, physical exam and discussion of plan of care Total time was 25 minutes spent including some or all of above listed required for care of patient talking about diagnosis, treatment and plan of care outside of usual preventive care with the patient as listed in the treatment portion of the note 01/27/2024 Other Time spent on patient care including - review of previous records - preparation for visit - ordering medications, labs or imaging - documenting visit - discussion of care with another health career and transition teacher if indicated - direct face to face time with patient including obtaining relevant history, physical exam and discussion of plan of care Total time was 25 minutes spent including some or all of above listed required for care of patient talking about diagnosis, treatment and plan of care outside of usual preventive care with the patient as listed in the treatment portion of the note Plan Of Treatment Next Appt Details Provider Name:Adenike christianson, 07/27/2024 10:00:00 AM, [address] [place], [address], Insurance Providers Payer Name Payer Address Payer Phone Subscriber Number Group Number Insured Name Patient Relationship to Insured Coverage Start Date Coverage End Date UMR (INS BILL) [address] [address] [place] [address] [id number] Sofia Iyer Self - patient is the insured Medical (General) History Medical History History ICD Code chronic pain endometriosis anxiety/depression hx of migraines hypertension ulcers Surgical History Surgery Date(Month/Year) spinal cord stimulator upper endoscopy total hysterectomy ovarian cysts removed D and C Hospitalization History Reason Date(Month/Year) psych 01/21/2023
--- OUTSIDE RECORDS SUMMARY | 2024-05-15 19:53 | XMS_ITS | Clinical Summary ---
Author Organization [facility] Address [address] [place] [address] Care Team Providers Care Welding Specialist Name Role Phone Unavailable Primary Care Provider Unavailabl e Source Comments Patient records contain information from all sites at [facility]. For routine questions regarding patient records, call [phone] during business hours, M-F 8:00 AM - 5:00 PM Central Time. Record requests for emergency care only can be directed to [phone] at any time.[facility] Immunizations Name Administration Dates Next Due [...] Comments Blood Pressure 122/80 07/01/2015 11:34 AM CERTIFIED ALCOHOL AND DRUG COUNSELOR Pulse 80 07/01/2015 11:34 AM CERTIFIED ALCOHOL AND DRUG COUNSELOR Temperature - - Respiratory Rate 14 07/01/2015 11:34 AM CERTIFIED ALCOHOL AND DRUG COUNSELOR Oxygen Saturation - - Inhaled Oxygen Concentration - - Weight 104 kg (229 lb 4.5 oz) 07/01/2015 11:34 A M CERTIFIED ALCOHOL AND DRUG COUNSELOR Height 166 cm (5' 5.35) 07/29/2015 2:10 PM CERTIFIED ALCOHOL AND DRUG COUNSELOR Body Mass Index 37.74 07/01/2015 11:34 AM CERTIFIED ALCOHOL AND DRUG COUNSELOR Plan of Treatment Health Maintenance Due Date Last Done Comments HIV Screening 1980 Hepatitis C Screening 1980 Mammogram 1980 Depression Screening (Annual PHQ-2) 08/23/2023 COVID-19 Vaccine ( season) 2024 04/30/2022, 06/12/2021, 10/03/2020, Additional history exists Cervical Cancer Screening 05/07/20242020, 03/04/2020, 09/26/2018 Influenza Vaccine (#1) 2024 , 07/03/2022, 07/10/2021, Additional history exists Lipid (Cholesterol) [...] to complete this topic [place], [place]I [id number]
--- OUTSIDE RECORDS SUMMARY | 2024-05-15 19:53 | XMS_ITS | Encounter Summary ---
Author Organization [facility] Address [address] [place] [address]. [place] [address] Care Team Providers Care Health Diagnostics Teacher Name Role Phone Herson Rhodes MD Primary Care Provider [phone] [facility] e Reason for Visit * Reason Comments Stenosis * Consultation (Routine) - Pending Review Specialty Diagnoses / Procedures Referred By Abdirizak trimble Referred To Contact Surgery Diagnoses Duodenal stenosis Kashif Su MD [facility] [address] [place] [address] Referral ID Status Reason Start Date Expiration Date V isits Requested Visits Authorized [id number] Pending Review 05/02/2024 05/02/2025 1 1 Encounter Details Date Type Department Care Team (Late st Contact Info) Description 05/09/2024 1:45 PM CDT Office Visit [facility] Surgery Clinic and Bariatrics Care [place] [address] [place] [address] [address] [place] [phone] Kashif Su MD [facility] [address] [place], [place] [id number] Ed Saenz MD [address] [place] [address] [address] [place], [place] [id number] Class 3 severe obesity due to excess calories with serious comorbidity and body mass index (BMI) of 50.0 to 59.9 in adult (H) (Primary Dx); Duodenal stenosis Social History Tobacco Use Types Packs/Day Years Used Date Smoking Tobacco: Former Cigarettes Q uit: 08/23/2010 Smokeless Tobacco: Never Tobacco Cessation:Counseling Given: Not Answered Alcohol Use Standard Drinks/Week Comments Yes 0 [...] PM CDT documented as of this encounter Last Filed Vital Signs Vital Sign Reading Time Taken Comments Blood Pressure - - Pulse - - Temperature - - Respiratory Rate - - Oxygen Saturation - - Inhaled Oxygen Concentration - - Weight 139.3 kg (307 lb) 05/09/2024 1:23 PM CDT Height 165.1 cm (5' 5) 05/09/2024 1:23 PM CDT Body Mass Index 51.09 05/09/2024 1:23 PM CDT documented in this encounter Patient Instructions * Patient Instructions* Janak Villareal MA - 05/09/2024 1:45 PM CDT Images from the original note were not included. Gary Iyer, Thank you for your interest in [facility]'s Bariatric Surgery Program. Before your first consultation, you will need to watch six short videos that take about 30 minutes to complete. You can find them at the bottom of this page: [email or web address]. Be sure to watch all six ! Thank you, and have a great day, Comprehensive Weight Management Program Scheduling Team Contact us Wednesday thru Wednesday, from 7:00 am until 5:00 pm by calling [phone]. documented in this encounter Progress Notes * Ed Saenz MD - 05/09/2024 1:45 PM CDT HPI: Sofia Iyer is a 43 year old female here today for discussion regarding metabolic and bariatric surgery in conjunction with treatment of a duodenal stricture. She is referred by Dr. Su. With regard to the duodenal stricture, this has been a problem for her for the past 3 years. It was additionally identified in 2020 on upper endoscopy, and was successfully treated with balloon dilation at that point in time. She has had multiple balloon dilations due to stricturing since that time, most recently last week previous to that in October of last year. At the time of her last upper endoscopy the impression from her independent living instructor was that this is not going to be something that gets better with dilations alone. With her underlying morbid obesity recommended discussion of pursuing gastric bypass as a means of treating both issues. With regard to her morbid obesity, this accelerated over the course of the past year with weight gain of almost 100 pounds. She currently weighs near her highest weight. Some of this may be secondaryto initiation of recent medications including lamotrigine for bipolar. She was recently within the past 2 weeks and started on Mounjaro after identification of prediabetes on routine lab work. In addition to prediabetes, she also suffers from hypertension, GERD, chronic back pain, and PCOS. Allergies:Compazine, Levofloxacin, and Phenergan dm [promethazine-dm] Past Medical History: Diagnosis Date Allergic rhinitis Anxiety Chronic daily headache Chronic pain neck pain Degenerative lumbar disc Diverticulitis Dysthymic disorder Endometriosis Gastro-oesophageal reflux disease GERD (gastroesophageal reflux disease) Hypertension IBS (irritable bowel syndrome) IBS (irritable bowel syndrome) Insomnia Low back pain Other chronic pain PCOS (polycystic ovarian syndrome) PONV (postoperative nausea and vomiting) Sacroiliac joint dysfunction Spinal cord stimulator status uses spinal cord stimulator Spondylarthrosis Walking troubles not current 05/29/11 Past Surgical History: Procedure Laterality Date COLONOSCOPY ESOPHAGOSCOPY, GASTROSCOPY, DUODENOSCOPY (EGD), COMBINED N/A 04/09/2021 Procedure: ESOPHAGOGASTRODUODENOSCOPY WITH DUODENAL DILATION AND GASTRIC BIOPSIES; Surgeon: Kashif Su MD; Location: [facility] OR RESIDENT BUYER SURGERY exc endometrial cysts HYSTERECTOMY, PAP STILL INDICATED until 2025 HYSTEROSCOPY DIAGNOSTIC 01/08/2014 Procedure: HYSTEROSCOPY DIAGNOSTIC; Surgeon: Alan Shah MD; Location: [facility] HYSTEROSCOPY DIAGNOSTIC N/A 02/12/2015 Procedure: HYSTEROSCOPY DIAGNOSTIC; Surgeon: Alan Shah MD; Location: [facility] INSERT STIMULATOR DORSAL COLUMN INSERT STIMULATOR DORSAL COLUMN 03/16/2011 Procedure:INSERT STIMULATOR DORSAL COLUMN; Procedure: Exchange of charageable battery of Dorsal Spinal cord stimulator with nonchargeable ; Surgeon:AJ PERKINS; Location:[facility] OR INSERT STIMULATOR DORSAL COLUMN 06/02/2011 Procedure:INSERT STIMULATOR DORSAL COLUMN; Medtronic Spinal Cord Stimulator Revision; Surgeon:AJ PERKINS; Location:[facility] OR LAPAROSCOPIC ASSISTED HYSTERECTOMY VAGINAL N/A 12/19/2015 Procedure: LAPAROSCOPIC ASSISTED HYSTERECTOMY VAGINAL; Surgeon: Alan Shah MD; Location: [facility] LAPAROSCOPIC OOPHORECTOMY Left 04/11/2019 Procedure: Laparoscopic oophorectomy; Surgeon: Alan Shah MD; Location: OR LAPAROSCOPIC SALPINGECTOMY 12/19/2015 Procedure: LAPAROSCOPIC SALPINGECTOMY; Surgeon: Alan Shah MD; Location: [facility] LASER CO2 LAPAROSCOPIC VAPORIZATION ENDOMETRIUM N/A 02/12/2015 Procedure: LASER CO2 LAPAROSCOPIC VAPORIZATION ENDOMETRIUM; Surgeon: Alan Shah MD; Location: [facility] LASER CO2 LAPAROSCOPIC VAPORIZATION ENDOMETRIUM N/A 12/19/2015 Procedure: LASER CO2 LAPAROSCOPIC VAPORIZATION ENDOMETRIUM; Surgeon: Alan Shah MD; Location: [facility] LASER CO2 LAPAROSCOPY DIAGNOSTIC, LYSIS ADHESIONS, COMBINED 01/08/2014 Procedure: COMBINED LASER CO2 LAPAROSCOPY DIAGNOSTIC, LYSIS ADHESIONS; Surgeon: Alan Shah MD; Location: [facility] LASER CO2 LAPAROSCOPY DIAGNOSTIC, LYSIS ADHESIONS, COMBINED N/A 04/11/2019 Procedure: LAPAROSCOPY, USING CO2 LASER (TRANST3 MOTION TECH); Surgeon: Alan Shah MD; Location: OR radio frequency ablation nerve spine radiofrequency ablation of nerve neck 05/25/11 REPLACE BATTERY STIMULATOR DORSAL COLUMN 02/14/2014 Procedure: REPLACE BATTERY STIMULATOR DORSAL COLUMN; Surgeon: Aj Perkins MD; Location: [facility] OR CURRENT MEDS: Prior to Admission medications Medication Sig Start Date End Date Taking? Authorizing Provider baclofen (LIORESAL) 20 MG tablet Take 40 mg by mouth daily (Takes 2 x 20mg = 40mg) Reported, Patient escitalopram (LEXAPRO) 10 MG tablet Take 10 mg by mouth daily Reported, Patient estradiol (ESTRACE) 0.5 MG tablet Take 1 tablet (0.5 mg) by mouth daily 05/07/21 Alan Shah MD fluticasone (FLONASE) 50 MCG/ACT nasal spray [place] 2 sprays into both nostrils daily Reported, Patient Gabapentin 10 % CREA Externally apply 1 g topically 4 times daily 11/07/19 Alan Shah MD metoprolol succinate ER (TOPROL XL) 100 MG 24 hr tablet Take 100 mg by mouth daily Reported, Patient olopatadine (PATANOL) 0.1 % ophthalmic solution Place 1 drop into both eyes 2 times daily Reported,Patient topiramate (TOPAMAX) 100 MG tablet Take 100 mg by mouth 2 times daily Reported, Patient traMADol HCl 100 MG TABS 100 mg 2 times daily Reported, Patient Social Connections: Unknown (10/29/2021) Received from [employer] Social Connections Frequency of Communication with Friends and Family: Not on file Family History Problem Relation Age of Onset Asthma Father Arthritis Father Chronic Obstructive Pulmonary Disease Father Depression Father Thyroid Disease Sister Diabetes Other Moms side reports that she quit smoking about 13 years ago. Her smoking use included cigarettes. She has never used smokeless tobacco. She reports current alcohol use. She reports current drug use. Drug: Marijuana. History Smoking Status Former Types: Cigarettes Smokeless Tobacco Never Review of Systems - A complete ROS was reviewed and except for what is listed in the HPI above, allothers are negative PSYCHIATRIC: She has undergone a lifestyle assessment and has been deemed a good candidate for bariatric surgery by the psychologist. Ht 1.651 m (5' 5) Wt 139.3 kg (307 lb) LMP 06/11/2015 BMI 51.09 kg/m?? Wt Readings from Last 4 Encounters: 05/09/24 139.3 kg (307 lb) 02/18/23 83.5 kg (184 lb) 05/07/21 107.9 kg (237 lb 12.8 oz) 04/09/21 107.2 kg (236 lb 4.8 oz) Body mass index is 51.09 kg/m??. EXAM: GENERAL: This is a well-developed 43 year old female who appears her stated age HEAD & NECK: Grossly normal. No visible goiter or scars CARDIAC: Regular rate and rhythm CHEST/LUNG: Normal respiratory effort ABDOMEN: Obese. No visible hernias or masses appreciated. LYMPHATIC: No significant adenopathy visualized. EXTREMITIES: Grossly normal. No evidence of chronic venous stasis. NEUROLOGIC: Focally intact INTEGUMENT: No open lesions or ulcers appreciated visually Assessment/Plan: 43 year old female with a recurrent duodenal stricture who will need some sort of bypass procedure given the chronicity of this, either a loop gastrojejunostomy to treat the duodenalstricture alone, or a Nancy-en-Y gastric bypass which would have the added benefit of treating her underlying morbid obesity. I think this would be a good option for her, and we will start her down that pathway through our comprehensive weight management program. Ed Saenz MD ,MD [facility] Department of Surgery documented in this encounter Plan of Treatment Upcoming Encounters Date Type Department Care Team (Late st Contact Info) Description 05/18/2024 10:00 AM CDT Office Visit [facility] Surgery Clinic and Bariatrics Care [address] [phone] Miriam Melton APRN [address] [address] 05/22/2024 1:00 PM CDT Virtual Visit [facility] Surgery [facility] and Bariatrics [address] [phone] Dung Alva, PhD [employer] [address] [place] [address] 06/12/2024 9:00 AM CDT Virtual Visit [facility] Surgery [facility] and Bariatrics Care [address] [phone] Dung Alva, PhD [employer] [address] [place] [address] 07/21/2024 1:00 PM COLLATOR Virtual Visit [facility] Surgery Clinic and Bariatrics Care [place] [address] [facility] [address] [place] [address] Hien Flood, RD [address] [facility] [address] [place] [address] documented as of this encounter Visit Diagnoses Diagnosis Class 3 severe obesity due to excess calories with serious comorbidity and body mass index (BMI) of 50.0 to 59.9 in adult- Primary Duodenal stenosis Other obstruction of duodenum documented in this encounter Additional Health Concerns Assessment Noted Time PHQ-9 Depression Total Score: 2 05/07/20 21 11:37 AM CDT documented as of this encounter Care Teams Health Diagnostics Teacher Relationship Specialty Start Date End Date Herson Rhodse MD PCP - General 06/02/11 Clinic - [facility] [address] [place] [address] Assigned PCP 12/14/23 documented as of this encounter
--- OUTSIDE RECORDS SUMMARY | 2024-05-15 19:53 | XMS_ITS ---
Author Organization [facility] Address [address] [place] [address] Care Team Providers Care Video Game Tester Name Role Phone None, No PCP Primary Care Provider Adenike Spain [phone] REASON FOR VISIT unable to get rx Medications Medication SIG (Take, Route, Fr equency, Duration) Notes Start Date End Date Status Estradiol 0.05 MG/24HR 1 patch to skin T ransdermal Two times a Week for 30 days Act viridiana Encounters Encounter Location Date Provider Diagnosis [facility] [address] [place] [address] [address] [place], [place] [phone] 03/29/2024 Adenike Hatfield Plan Of Treatment Medication Medication Name Sig Start Date Stop Date Notes Estradiol 0.05 MG/24HR 1 patch to skin T ransdermal Two times a Week for 30 days Next Appt Details Provider Name:Adenike Tolentino te, 07/27/2024 10:00:00 AM, [address] [place], [address], Progress Notes * Rylee GARCIAAnelB:[birth year] (43 yo F)Acc No.[id number]:03/29/2024 Patient:?Sofia GARCIA :1980???Age:43 Y???Sex:Female Address:[address] [place] [address] * Refills? Refill Estradiol Patch Twice Weekly, 0.05 MG/24HR, Transdermal, 8, 1 patch to skin, Two times a Week, 30 days, Refills=0 * true * Date:? Generated for Brooke jean-baptiste/Liana/Pedro Pablo on:?05/15/2024 07:52 PM CDT
--- OUTSIDE RECORDS SUMMARY | 2024-05-15 19:53 | XMS_ITS | Clinical Summary ---
Author Organization [place] Address [address] [place] [address] Care Team Providers Care Associate Genetics Professor Name Role Phone Herson Rhodes MD Primary Care Provider [facility] Allergies Active Allergy Reactions Criticality [...] Active fluticasone (FLONASE) 50 MCG/ACT nasal spray [place] 2 sprays into both nostrils daily Active [...] comorbidity 019 Vaginal Pap smear 09/27/2017 Overview: 2005 LEEP- will need paps x 20 years regardless of removal of cervix or age- until 202511, 12, NIL paps- 12/19/15 total hysterectomy including cervix. 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 Information Management [address] [place] [address] [address] [place] [address] Scan, Non-Provider from Last 3 Months Immunizations Name Administration Dates Next Due COVID-19 MONOVALENT 12+ (Pfizer) 06/12/2021,09/23,09/12/2020 DTAP (<7y) 06/04/2008 Flu, Unspecified 07/29/2015,06/04/2008 Hepatitis B, Adult 01/30/2002,05/17/2000, 000 Influenza (IIV3) PF 07/04/2012,05/18/2011,2007 Influenza Vaccine 18-64 (Flublok) 08/18/2019 Influenza Vaccine >6 months,quad, PF ,07/03/2022,07/10/2021,2019,08/18/2019,07/11/2018,04/27/2017,1 09/29/2014,06/19/2014,07/04/2012, 011,06/04/2008 Influenza Vaccine, 6+MO IM (QUADRIVALENT W/PRESERVATIVES) 07/29/2015 Influenza, Split Virus, Triv alent, Pf (Fluzone\Fluarix) 05/18/2011 Influenza, seasonal, injectable, PF 05/18/2011 MMR 12/19/1993 [...] CDT Inhaled Oxygen Concentration - - Weight 139.3 kg (307 lb) 05/09/2024 1:23 PM CDT Height 165.1 cm (5' 5) 05/09/2024 1:23 PM CDT Body Mass Index 51.09 05/09/2024 1:23 PM CDT Plan of Treatment Upcoming Encounters Date Type Department Care Team (Late st Contact Info) Description 05/18/2024 10:00 AM CDT Office Visit [facility] [address] [place] [address] Miriam Melton APRN [address] [place] [address] 05/22/2024 1:00 PM CDT Virtual Visit [facility] Surgery [facility] and [facility]rics Care [address] [address] Dung Alva, PhD [employer] [address] [place] [address] 06/12/2024 9:00 AM CDT Virtual Visit [facility] and [facility] Care [address] [phone] Dung Alva, PhD [employer] [address] [place] [address] 07/21/2024 1:00 PM ORIGINATION SPECIALIST Virtual Visit [facility] and [facility] Care [address] [place] [address] Hien Flood, RD [address] [facility] 200 [place] [address] [phone] (Work) Health Maintenance Due Date Last Done Comments ADVANCE CARE PLANNING 1980 ANNUAL REVIEW OF HM ORDERS 1980 URINE DRUG SCREEN 1980 GLUCOSE 12/19/2018 12/20/2015 LIPID 2020 YEARLY PREVENTIVE VISIT 05/07/2022 05/07/20 21, 03/04/2020, 09/26/2018, Additional history exists MAMMO SCREENING 05/07/2023 05/07/2021 COVID-19 Vaccine ( season) 2024 04/30/2022, 06/12/2021, 10/03/2020, Additional history exists INFLUENZA VACCINE (#1) 2024 , 07/03/2022, 07/10/2021, Additional history exists HPV TEST 05/07/2024 05/07/2021, 02/20, 09/26/2018, Additional history exists PAP 05/07/2024 05/07/2021, 02/20, 09/26/2018, Additional history exists DTAP/TDAP/TD IMMUNIZATION (5 - Td or Tdap) 04/07/2029 04/07/2019, 06/04/2008, 06/04/2008, Additional history exists RSV VACCINE (1 - 1-dose 75+ series) 2055 HEPATITIS B IMMUNIZATION Completed 002, 05/17/2000, 04/16/2000 HEPATITIS C SCREENING Completed 01/28/2010 HIV SCREENING Completed 01/28/2010 PHQ-2 (once per calendar year) Completed 05/09/2024, 02/18/2023, 05/07/2021, Additional history exists HPV IMMUNIZATION Aged Out No longer e [...] this topic Medical Devices Implanted Type Area Candy Butcher Device Identifier Shelf Expiration Date Model / Serial / Lot Primeadvanced Surescan Mri Neurostimulator Implanted:Qty: 1 on 02/14/2014 by Aj Perkins MD at [facility] Left: Buttocks [employer] 03/19/2015 [id number] / [id number] / Explanted Type Area Candy Butcher Device Identifier Shelf Expiration Date Model / Serial / Lot Prime Advanced Neurostimulator Implanted:Qty: 1 on 03/16/2011 at [facility] Explanted:Qty: 1 on 02/14/2014 by Aj Perkins MD at [facility] Left: Buttocks [employer] 03/05/2012 [id number] / [id number] / Description:Prime advanced M ulti program [...] Malignancy (NILM) 05/09/2021 2:32 PM CDT [facility] Specimen Adequacy Satisfactory for evaluation, endocervical/paul sformation zone component absent 05/09/2021 2:32 PM CDT [facility] Clinical Information complete hysterectomy 05/09/2021 2:32 PM CDT [facility] Reflex Testing Yes regardless of result 05/09/2021 2:32 PM CDT [facility] Previous Abnormal? No 05/09/2021 2:32 PM CDT [facility] Performing Labs The technical component of this testing was completed at [facility] 05/09/2021 2:32 PM CDT [facility] Brushing VAGINAL STRUCTURE / Unknown 05/07/2021 11:50 AM CDT 05/07/2021 12:21 PM CDT Alan JENNINGS - VALENTIN [facility] [address] [place] [address], [facility] [phone] * HPV High Risk Types DNA Cervical (05/07/2021 11:50 AM CDT) Other HR HPV Negative Negative 05/13/2021 2:50 PM CDT [facility] HPV16 DNA Negative Negative 05/13/2021 2:50 PM CDT [facility] HPV18 DNA Negative Negative 05/13/2021 2:50 PM CDT [facility] FINAL DIAGNOSIS This patient's sample is negative for HPV DNA. This test was developed and its performance characteristics determined by the [facility], Molecular Diagnostics Laboratory. It has [...] followup is recommended. 05/13/2021 2:50 PM CDT [facility] Brushing VAGINAL STRUCTURE / Unknown Non-blood Collection / Unknown 05/07/2021 11:50 AM CDT 05/12/2021 8:50 AM CDT Alan Shah MD LAB - BLOOD ORDERABL ES [facility] Diagnostics Lab [address] [facility] [place] [address], [facility] [phone] * MA Screening Digital Bilateral (05/07/2021 11:20 [...] Alan Shah MD LAB - BEAKER POCT Performing Organization Address City/[facility]/ZIP Co de Phone Number POINT OF CARE TEST, GLUCOSE * HIV [...] Advance Directives For more information, please contact: [phone] * Full Code (Latest Code Status on File) Date Activated Date Inactivated Comments 12/19/2015 3:02 PM 12/20/2015 1:10 PM Care Teams Associate Genetics Professor Relationship Specialty Start Date End Date Herson Rhodes MD PCP - General 06/02/11 Clinic - [facility] [address] [place] [address] Assigned PCP 12/14/23
--- OUTSIDE RECORDS SUMMARY | 2024-05-15 19:53 | XMS_ITS | Clinical Summary ---
Author Organization [facility] Address [place], [place] [address] Care Team Providers Care Rice Field Worker Name Role Phone Herson Rhodes MD Primary [...] Hypertension 03/11/2011 IBS (irritable bowel syndrome) 03/18/2009 Overview (04/20/2012): Colonoscopy 03/2012 normal Insomnia, unspecified 11/29/2007 Dysthymic [...] Garcia MD Medical Devices Implanted Type Area Activities Officer Device Identifier Shelf Expiration Date Model / Serial / Lot Stimulator Spinal Primeadvanedsurescan Mri - [id number] Implanted:Qty: 1 on 12/02/2017 by Herson Lala MD at [facility] Left: Flank [employer] 12/18/2018 [id number]# / [id number] / Stimulator Spinal Intellis Mri - [id number] Implanted:Qty: 1 on 06/19/2020 by Herson Lala MD at [facility] Left: Flank [employer] Pain Therapy 04/19/2021 [id number]# / / [id number] Envlp Neuro Tyrx Absorb Antibacterial - [id number] Implanted:Qty: 1 on 06/19/2020 by Herson Lala MD at [facility] Left: Flank [employer] 01/10/2021 [id number] # / / [id number] Explanted Type Area Activities Officer Device Identifier Shelf Expiration Date Model / Serial / Lot [id number] - [id number] Explanted:Qty: 1 on 12/02/[address] [facility] Left: Flank [employer] [id number] / [id number] / Description:Spinal cord gene rator battery Procedures Procedure Name Priority Date/Time Associated Diagnosis Comments ANTI HCV Timed 08/21/2004 9:55 AM RESTORATIVE COORDINATOR from Last 3 Months or Most Recently Relevant to Health Maintenance Results * ANTI HCV (08/21/2004 9:55 AM RESTORATIVE COORDINATOR) ANTI HCV Non-reactiv e [facility] 08/21/2004 9:55 AM RESTORATIVE COORDINATOR 08/21/2004 7:46 PM RESTORATIVE COORDINATOR Narrative [facility] - 08/26/2004 1:39 PM RESTORATIVE COORDINATOR Testing Performed By [place], [place] Radha Huff DISC SANDER SEND OUTS [facility] [address] [place] [address] from Last 3 Months or Most Recently [...] 7:00 AM 07/21/2009 2:26 AM Care Teams Rice Field Worker Relationship Specialty Start Date End Date Herson Rhodes MD [address] [place] [address] PCP - General Family Practice 06/10/20
--- OUTSIDE RECORDS SUMMARY | 2024-05-15 19:53 | XMS_ITS | Encounter Summary ---
Author Organization [place] Address [address] [place] [address]. [place] [address] Care Team Providers Care Speech And Drama Teacher Name Role Phone Herson Rhodes MD Primary Care Provider [phone] [facility] Encounter Details Date Type Department Care Team (Late st Contact Info) Description 05/01/2024 Medical Correspondence [facility] Health Information Management [address] [facility] [address] [place] [address] Scan, Non-Provider Social History Tobacco Use Types Packs/Day Years [...] Description 05/18/2024 10:00 AM CDT Office Visit [facility] Bariatrics Care [address] [place] [phone] Miriam Melton, DEE [address] [place] [address] 05/22/2024 1:00 PM CDT Virtual Visit [facility] Surgery [facility] and Bariatrics Care [address] [place] [address] Dung Alva, PhD [employer] [address] [place] [address] 06/12/2024 9:00 AM CDT Virtual Visit [facility] Surgery [facility] and Bariatrics Care [address] [place] [address] Dung Alva, PhD [employer] [facility] [address] [place] [address] 07/21/2024 1:00 PM SPECIAL TECHNICAL OPERATIONS OFFICER Virtual Visit [facility] Surgery [facility] and Bariatrics Care [address] [place] [address] Hien Flood, RD [address] [facility] [address] [place] [address] documented as of this encounter Visit Diagnoses Not on filedocumented in this encounter Additional Health Concerns Assessment Noted Time PHQ-9 Depression Total Score: 2 05/07/20 21 11:37 AM CDT documented as of this encounter Care Teams Speech And Drama Teacher Relationship Specialty Start Date End Date Herson Rhodes MD PCP - General 06/02/11 Clinic - [facility] [address] [place] [address] Assigned PCP 12/14/23 documented as of this encounter
--- OUTSIDE RECORDS SUMMARY | 2024-05-15 19:53 | XMS_ITS | Referral Summary ---
Author Organization [place] Address [address] [place] [address] Care Team Providers Care Dish Machine Operator Name Role Phone Herson Rhodes MD Primary Care Provider [facility] Encounters Date Type Department Care Team Description 05/13/2024 Travel 05/09/2024 Travel 05/09/2024 1:45 PM CDT Office Visit [facility] and Bariatrics Care [address] [place] [address] Kashif Su MD Fasen, Geoffrey, MD Class 3 severe obesity due to excess calories with serious comorbidity and body mass index (BMI) of 50.0 to 59.9 in adult (H) (Primary Dx); Duodenal stenosis 05/04/2024 Travel 05/02/2024 Transcribe Orders GENERIC EXTERNAL DATA DEPARTMENT Kashif Su MD Duodenal stenosis (Primary Dx) 05/01/2024 Medical Correspondence [facility] Information Management [address] [facility] [address] [place] [address] Scan, Non-Provider from Last 3 Months Allergies Active Allergy Reactions Criticality Noted Date [...] Active fluticasone (FLONASE) 50 MCG/ACT nasal spray [place] 2 sprays into both nostrils daily Active [...] of removal of cervix or age- until 2025 '11, '12, NIL paps- 12/19/15 total hysterectomy including cervix. [...] Description 05/18/2024 10:00 AM CDT Office Visit [facility]ariatrics Care [address] [place] [address] Miriam Melton, PIT SHOVELER [employer]ER [address] [facility] [address] [place], [place] [address] 05/22/2024 1:00 PM CDT Virtual Visit [facility] and Bariatrics [address] [place] [address] Dung Alva, PhD [email or web address] [address] [facility] [place] [address] 06/12/2024 9:00 AM CDT Virtual Visit [facility] and [facility]rics Care [address] [place] [address] Dung Alva, PhD [email or web address] [address] [place] [address] 07/21/2024 1:00 PM WORT EXTRACTOR Virtual Visit [facility] and Bariatrics [address] [place] [address] Hien Flood, ZEINAB [address] [facility] [address] [place] [address] Medical Devices Implanted Type Area Photocopier Technician Device Identifier Shelf Expiration Date Model / Serial / Lot Primeadvanced Surescan Mri Neurostimulator Implanted:Qty: 1 on 02/14/2014 by Aj Perkins MD at [facility] Left: Buttocks [employer] 03/19/2015 [id number] / [id number] H / Explanted Type Area Photocopier Technician Device Identifier Shelf Expiration Date Model / Serial / Lot Prime Advanced Neurostimulator Implanted:Qty: 1 on 03/16/2011 at [facility] Explanted:Qty: 1 on 02/14/2014 by Aj Perkins MD at [facility] Left: Buttocks [employer] 03/05/2012 [id number] / [id number] / Description:Prime advanced M ulti program [...] or Malignancy (NILM) 05/09/2021 2:32 PM CDT [facility] Specimen Adequacy Satisfactory for evaluation, endocervical/paul sformation zone component absent 05/09/2021 2:32 PM CDT [facility] Clinical Information complete hysterectomy 05/09/2021 2:32 PM CDT [facility] Reflex Testing Yes regardless of result 05/09/2021 2:32 PM CDT [facility] Previous Abnormal? No 05/09/2021 2:32 PM CDT [facility] Performing Labs The technical component of this testing was completed at [facility] 05/09/2021 2:32 PM CDT [facility] Brushing VAGINAL STRUCTURE / Unknown 05/07/2021 11:50 AM CDT 05/07/2021 12:21 PM CDT Alan JENNINGS - VALENTIN [address] [address], [facility] [phone] * HPV High Risk Types DNA Cervical (05/07/2021 11:50 AM CDT) Other HR HPV Negative Negative 05/13/2021 2:50 PM CDT [facility] HPV16 DNA Negative Negative 05/13/2021 2:50 PM CDT [facility] HPV18 DNA Negative Negative 05/13/2021 2:50 PM CDT [facility] FINAL DIAGNOSIS This patient's sample is negative for HPV DNA. This test was developed and its performance characteristics determined by the [facility], Molecular Diagnostics Laboratory. It has not [...] followup is recommended. 05/13/2021 2:50 PM CDT [facility] Brushing VAGINAL STRUCTURE / Unknown Non-blood Collection / Unknown 05/07/2021 11:50 AM CDT 05/12/2021 8:50 AM CDT Alan Shah MD LAB - BLOOD ORDERABL ES [facility] Molecular Diagnostics Lab [address] [facility] [place] [address], [facility] [phone] * MA Screening Digital Bilateral (05/07/2021 11:20 [...] the patient. Alan Shah MD IMG MAMMOGRAPHY [facility] ED[facility]ICO[facility] * (ABNORMAL) Glucose by meter (12/20/2015 5:21 [...] Advance Directives For more information, please contact: [phone] * Full Code (Latest Code Status on File) Date Activated Date Inactivated Comments 12/19/2015 3:02 PM 12/20/2015 1:10 PM Care Teams Dish Machine Operator Relationship Specialty Start Date End Date Herson Rhodes MD PCP - General 06/02/11 [facility] [address] [place] [address] Assigned PCP 12/14/23
--- OUTSIDE RECORDS SUMMARY | 2024-05-15 19:53 | XMS_ITS | Encounter Summary ---
Author Organization [place] Address [address] [place] [address]. [place] [address] Care Team Providers Care Inspector General Name Role Phone Herson Rhodes MD Primary Care Provider [facility] Encounter Details Date Type Department Care Team (Latest Contact Info) Description 05/09/2024 Travel Social History Tobacco Use Types Packs/Day [...] Description 05/18/2024 10:00 AM CDT Office Visit [facility] Surgery Clinic and Bariatrics Care [address] [place] [address] Miiram Melton APRN [facility] [address] [facility] [address] [place] [address] 05/22/2024 1:00 PM CDT Virtual Visit [facility] Clinic and Bariatrics Care [place] [address] [facility] [address] [place] [address] Dung Alva, PhD [employer] [address] [place] [address] 06/12/2024 9:00 AM CDT Virtual Visit [facility] and Bariatrics Care [place] [address] [facility] [address] [place] [address] Dung Alva, PhD [employer] [address] [place] [address] 07/21/2024 1:00 PM MACHINE JOINT CUTTER Virtual Visit [facility] and Bariatrics Care [place] [address] [place] [address] 200 [place] [address] Hien Flood, RD [address] [facility] [address] [place] [address] documented as of this encounter Visit Diagnoses Not on filedocumented in this encounter Additional Health Concerns Assessment Noted Time PHQ-9 Depression Total Score: 2 05/07/20 21 11:37 AM CDT documented as of this encounter Care Teams Inspector General Relationship Specialty Start Date End Date Herson Rhodes MD PCP - General 06/02/11 Clinic - [facility] [address] [place] [address] Assigned PCP 12/14/23 documented as of this encounter
--- OUTSIDE RECORDS SUMMARY | 2024-05-15 19:53 | XMS_ITS | Continuity of Care Document ---
Author Organization [facility] Address [address] [address] [place] [address] Phone Care Team Providers Care Physical Plant Employee Name Role Phone Kashif Su MD Unavailable Unavailable Allergies, Adverse Reactions, Alerts Substance Reaction Status Criticality PROMETHAZINE HCL Active No Informat ion PROCHLORPERAZINE MALEATE Active No Information PROCHLORPERAZINE EDISYLATE Active N o Information prochlorperazine Active No Informat ion Medications Medication Instructions Dosage Effective Dates (start - stop) Status Comments lamotrigine 150 mg tablet take 1 tablet by oral route every day 150 MG - Active doxazosin 1 mg tablet take 1 tablet by o ral route 2 times every day 1 MG - Active lorazepam 0.5 mg tablet take 0.5 tablet [...] - Active Procedures Procedure Date Established Level 3 Established Level 4 Ugi Endo; W/balloon Dilat [...] Diagnoses Date Provider Providers Copied on Encounter Established Level 3 [facility] [place], [address] [address], [place], [id number], [place] tel:[phone] [facility] GI Symptoms or Concerns (chief complaint) Duodenal stenosis 4 Go MD Rowland. [address] [facility], [facility] [address], [place], [place], [id number], [place]. tel:[phone] Referring Provider: Referral Self, USE FOR SELF REFERRALS. [facility] [place], [address] [address], [place], [id number], [place] tel:[phone] [facility] No Information 4 Cyrus Murcia. [address] [facility], [facility] [address], [place], [address], [place]. tel:[phone] Established Level 4 [facility], [address] [address], [place], [address], [place] tel:[phone] [facility] GI Symptoms or Concerns (chief complaint) Duodenal stenosis 3 Georges Rowland. [address] [facility], [facility] [address], [place], [address], [place]. tel:[phone] Referring Provider: Referral Self, USE FOR SELF REFERRALS. [facility], [address] [address], [place], [address], [place] tel:[phone] [facility] No Information 3 Cyrus Murcia. [address] [facility], [facility] [address], [place], [address], [place]. tel:[phone] [facility] [place], [address] [address], [place], [address], [place] tel:[phone] [facility] No Information 1 Georges Rowland. [address] [facility], [facility] [address], [place], [address], [place]. tel:[phone] Referring Provider: Kashif Guzman, [address] [facility] [address], [place], [address] . tel:[phone] [facility] [place], [address] [address], [place], [id number], [place] tel:[phone] [facility] GI Symptoms or Concerns (chief complaint) Duodenal stenosisObstruct ion of duodenum 1 Georges Rowland. [address] [facility], [facility] [address], [place], [address], [place]. tel:[phone] Referring Provider: Referral Self, USE FOR SELF REFERRALS. [facility], [address] [address], [place], [address], [place] tel:[phone] No Information 1 No Information Offic/outpt E&m Estab Mod-hi 2 [facility], [address] [address], [place], [address], [place] tel:[phone] [facility] GI Symptoms or Concerns (chief complaint) Obstruction of duodenum 1 Tobi Pugh. [address] [facility], [facility] [address], [place], [address], [place]. tel:[phone] Referring Provider: Pallavi Parra MD, [address] [place], [address]. tel:[phone] [facility], [address] [address], [place], [address], [place] tel:[phone] [facility] No Information 1 Jammie Jaime. [address] [facility], [facility] [address], [place], [address], [place]. tel:[phone] [facility], [address] [address], [place], [address], [place] tel:[phone] [facility] Obstruction of duodenum 1 Georges Rowland. [address] [facility], [facility] [address], [place], [address], [place]. tel:[phone] [facility], [address] [address], [place], [address], [place] tel:[phone] [facility] No Information 1 Georges Rowland. [address] [facility], [facility] [address], [place], [address], [place]. tel:[phone] Referring Provider: Kashif Guzman, [address] [facility] [address], [place], [address] . tel:[phone] [facility], [address] [address], [place], [address], [place] tel:[phone] [facility] Duodenal strictureGastric outlet obstructionObstr uction of duodenumAdult hypertrophic pyloric stenosis No Information Referring Provider: Pallavi Parra MD, [address] [place], [address]. tel:[phone] [facility] [place], [address] [address], [place], [place], [address], [place] tel:[phone] [facility] No Information Brenda [facility]. [address] [facility] [address], [place], [address], [place]. tel:[phone] Referring Provider: Pallavi Parra MD, [address] [place], [address]. tel:[phone] [facility], [address] [address], [place], [place], [address], [place] tel:[phone] [facility] No Information Jammie Jaime. [address] [facility] [address], [place], [address], [place]. tel:[phone] Family History Family Member Type Diagnosis Age At Onset No Information Immunizations Vaccine Date Status Comments Afluria Qd administered Note: IIC bi-directional interface ; Source: Other Registry Afluria Qd administered Note: IIC bi-directional interface ; Source: Other Registry SARS-COV-2 (COVID-19) vaccin e, mRNA, spike protein, LNP, bivalent, preservative free, 50 mcg/0.5 mL or 25 [...] bi-direct ional interface ; Source: Other Registry Afluria Qd administered Note: M IIC bi-directional interface ; Source: Other Registry Influenza, recombinant, quadrivalent, injectable, preservative free administered Note: [facility] bi-direct ional [...] bi-directional interface ; Source: Other Registry Influenza, split virus, trivalent, injectable, preservative free administered Note: [facility]IC bi-direct ional interface ; Source: Other Registry Influenza, seasonal, injecta ble, preservative free administered Note: [facility] bi-direct ional interface ; Source: Other Registry Influenza, split virus, trivalent, injectable, contains preservative administered Note: [facility]IC bi-direct ional interface ; Source: Other Registry tetanus toxoid, reduced diphtheria toxoid, and acellular pertussis vaccine, adsorbed administered Note: [facility] b i-directional interface ; Source: Other Registry Influenza, seasonal, injectable administe red Note: [facility] bi- directional interface ; Source: Other Registry Payers Payer name Insurance type Covered green party ID Jonathan yu(s) R [id number] Social History Type Description Quantity Date Captured Comments Alcohol Use Details Unknown Caffeine Use Details Unknown Tobacco Use Status No Information Smoking Status undefined Sex Female Vital Signs Date / Time: Height Weight BMI Pulse Rate Blood Pressure Temperature Respiratory Rate Body Surface Area Head Circumference Head Circ. Percentile Wt./Gallito. Percentile BMI percentile Pulse Ox Inhaled Ox 10:21 AM 65.00 in 141.067 kg (311.00 lbs) 51.7 5 kg/m lucie (2) Chief Complaint And Reason For Visit From encounter dated '05/01/2024 10:21'. GI Symptoms or Concerns (chief complaint). Description: Sofia Iyer is a very pleasant 43-year-old female who presents today for a virtual visit. She gave consent and was alone in a private placeduring the encounter.She has a history of duodenal stensosis. This was last dilated on 10/23/2022. She did fairly well until the past several months when she developed postprandial fullness. She has not vomit undigested food like she did in the past. She has learned how to manage her eating. She has avoided high-fiber and she sits down after eating to allow time for food to pass slowly. Interestingly, she has gained a lot of weight over the past year. She has gained about 100 pounds and now weighs 311 pounds. We have discussed surgery during her last appointment and she is interested in exploring this at this time.The patient had symptoms of early satiety for the last 10 years, eventually progressed to vomiting of undigested food. She finally underwent an upper endoscopy in [facility] in 2020 and was felt to have a gastric outlet obstruction and was referred to [facility]. 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 She has been placed on PPI therapy. She was redilated in 06/2021. Reason For Referral Reason For Referral No Information Plan Of Treatment Date Type Action Status Referral Ordered: referred to Ed Saenz MD Bariatric Surgery Appointment date/timeframe: 05/31/2024 ordered Referral Ordered: EGD With Dilation Appointment date/timeframe: 06/17/2021 ordered Referral Ordered: EGD Appointment date/timeframe: 04/09/2021 ordered History Of Present Illness Encounter Date Complaint History Of Prese nt Illness GI Symptoms or Concerns Sofia Iyer is a very pleasant 43-year-old female who presents today for a virtual visit. She gave consent and was alone in a private place during the encounter.She has a history of duodenal stensosis. This was last dilated on 10/23/2022. She did fairly well until the past several months when she developed postprandial fullness. She has not vomit undigested food like she did in the past. She has learned how to manage her eating. She has avoided high-fiber and she sits down after eating to allow time for food to pass slowly. Interestingly, she has gained a lot of weight over the past year. She has gained about 100 pounds and now weighs 311 pounds. We have discussed surgery during her last appointment and she is interested in exploring this at this time.The patient had symptoms of early satiety for the last 10 years, eventually progressed to vomiting of undigested food. She finally underwent an upper endoscopy in [place], [place] in 2020 and was felt to have a gastric outlet obstruction and was referred to [facility]. An EGD was performed on March [...] redilated in 06/2021. GI Symptoms or Concerns Sofia Iyer is [...] She finally underwent an upper endoscopy in [place], [place] in 2020 and was felt to have a gastric outlet obstruction and was referred to [facility]. An EGD was performed on March [...] She finally underwent an upper endoscopy in [place], [place] earlier this year and was felt to have a gastric outlet obstruction and was referred to [facility]. An EGD was performed on March [...] Instructions Date Instruction Additional Infor keyla 1. EGD with dilation not currently advised.2. Refer to surgery. Related to Duodenal stenosis 1. Continue PPIs.2. EGD with dilation.3. Likely [...] to Duodenal stricture Assessments Type Assessment Date assessment Duodenal stenosis impression She is once again jimenes ving symptoms of early satiety that is certainly due to her known duodenal stenosis. This is likely from prior peptic ulcer disease. She has had 3 dilations since 2020, the last one in 10/2022 with each dilation providing only short-term relief. I think she is best managed with a surgical bypass given her young age. Interestingly, she is gaining significant amount of weight as she is able to circumvent her symptoms by changing her eating habits. I wonder if a Nancy-en-Y gastric bypass may be the most appropriate procedure to manage both gastric outlet obstruction and obesity. I will refer her to a surgeon who does bariatric surgery to discuss what is the best procedure in her situation. Patient Care Teams Name Effective Dates (start - stop) Status Members No Information
--- OUTSIDE RECORDS SUMMARY | 2024-05-15 19:53 | XMS_ITS ---
Author Organization [facility] Address [address] [place] [address] Care Team Providers Care Reimbursement Spec Name Role Phone Unavailable Unavailable Unavailable Surgery Details Not on file Complications Check Surgery Details section. Procedure Estimated Blood Loss Check Surgery Details section. Procedure Findings Check Surgery Details section. Procedure Specimens Taken Check Surgery Details section.
--- OUTSIDE RECORDS SUMMARY | 2024-05-15 19:54 | XMS_ITS | Encounter Summary ---
Author Organization [facility] Address [address] [place] [address]. [place] [address] Care Team Providers Care Photoengraving Printer Name Role Phone Herson Rhodes MD Primary Care Provider Alan Shah MD Unavailable Betty Stevens NP Unavailable Unavailable [facility] Unavailabl e Encounter Details Date Type Department Care Team (Late st Contact Info) Description 12/05/2019 MyC Medical Advice [facility] [address] [address] Radha Roblero MD [facility] [address] [place], [place] [id number] Social History Tobacco Use Types Packs/Day Years [...] Description 05/18/2024 10:00 AM CDT Office Visit [facility] [address] [place] [address] Miriam Melton, DEE [address] [address] 05/22/2024 1:00 PM CDT Virtual Visit [facility] [address] [place] [address] Dung Alva, PhD [employer] [address] [place] [address] 06/12/2024 9:00 AM CDT Virtual Visit [facility] [address] [place] [address] Dung Alva, PhD [employer] [address] [place] [address] 07/21/2024 1:00 PM MANAGER PUBLIC Virtual Visit [facility] [address] [place] [address] Hien Flood, RD [facility] [address] [place] [address] documented as of this encounter Visit Diagnoses Not on filedocumented in this encounter Additional Health Concerns Assessment Noted Time PHQ-9 Depression Total Score: 10 019 2:14 PM MANAGER PUBLIC documented as of this encounter Care Teams Photoengraving Printer Relationship Specialty Start Date End Date Herson Rhodes MD PCP - General 06/02/11 [place] [address] [place] [address] Assigned OBGYN Provider 06/14/20 Betty Stevens NP Assigned PCP 01/28/23 12/13/23 [facility] [address] [place] [address] Assigned PCP 12/14/23 documented as of this encounter
--- NOTE | 2024-06-05 09:16 | W.PM.SLEEP ---
Sleep Study Details Details Interpreting Provider: Tam Date of Sleep Study: 05/15/24 Sleep Study Details: STUDY TYPE:? Home unattended ? BMI:? 51.1 ORDERING PROVIDER:? Tam INDICATION:? Concern about sleep apnea ? SLEEP SUMMARY:? 620 minutes monitored RESPIRATORY SUMMARY:? AHI 82.4, low oxygen 68, 8.8% of study oxygen less than 90%, snoring 95% PERIODIC LIMB MOVEMENTS OF SLEEP:? Not recorded CARDIAC:? Range 57-96, mean 73.7 beats per minute IMPRESSION:? Severe obstructive sleep apnea RECOMMENDATION: In-lab titration or AutoSet CPAP. This patient may end up requiring bilevel. Weight loss recommended
== END 2024-05-15 19:51 | disposition home or self-care (01) ==
LOC: SLEEP 19:51
PROVIDERS: PCP Family Medicine; Visit Provider Otolaryngology
DX: G47.33 Obstructive sleep apnea (adult) (pediatric) (principal)
CPT/HCPCS: 95806

== ENCOUNTER 2024-05-19 09:39 | Outpatient (CLI) | payer OTHER, SELFPAY ==
--- OUTSIDE RECORDS SUMMARY | 2024-05-19 09:41 | XMS_ITS ---
Author Organization [facility] Address [address] [place] [address] Care Team Providers Care Beauty Operator Name Role Phone None, No PCP Primary Care Provider Adenike Spain [phone] REASON FOR VISIT unable to get rx Medications Medication SIG (Take, Route, Fr equency, Duration) Notes Start Date End Date Status Estradiol 0.05 MG/24HR 1 patch to skin T ransdermal Two times a Week for 30 days Act viridiana Encounters Encounter Location Date Provider Diagnosis [facility] [address] [place] [address] [address] [place], [place] [id number] 03/29/2024 Adenike Hatfield Plan Of Treatment Medication Medication Name Sig Start Date Stop Date Notes Estradiol 0.05 MG/24HR 1 patch to skin T ransdermal Two times a Week for 30 days Next Appt Details Provider Name:Adenike Tolentino te, 07/27/2024 10:00:00 AM, [address] [place], [address], Progress Notes * Rylee GARCIAAnelB:[birth year] (43 yo F)Acc No.[id number]:03/29/2024 Patient:?Sofia GARCIA :1980???Age:43 Y???Sex:Female Address:[address] [place] [address] * Refills? Refill Estradiol Patch Twice Weekly, 0.05 MG/24HR, Transdermal, 8, 1 patch to skin, Two times a Week, 30 days, Refills=0 * true * Date:? Generated for Brooke jean-baptiste/Liana/Darrenitting on:?05/19/2024 09:41 AM CDT
--- OUTSIDE RECORDS SUMMARY | 2024-05-19 09:42 | XMS_ITS | Clinical Summary ---
Author Organization [facility] Address [address] [place] [address] Care Team Providers Care Cardiology Nurse Name Role Phone Unavailable Primary Care Provider Unavailabl e Source Comments Patient records contain information from all sites at [facility]. For routine questions regarding patient records, call [phone] during business hours, M-F 8:00 AM - 5:00 PM Central Time. 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
--- OUTSIDE RECORDS SUMMARY | 2024-05-19 09:42 | XMS_ITS | Patient Health Record ---
Author Organization [facility] Address [address] [place] [address] Care Team Providers Care Marine Engineer Cpvec Name Role Phone None, No PCP Primary Care Provider Adenike Spain [phone] Allergies Allergen (clinical drug ingredient) Drug/Non Drug Allergy documented on EMR Reaction Allergy Type Onset Date Status promethazine Phenergan Unknown Drug Allergy Acti ve Compazine Unknown Drug Allergy Active Results Component Value Reference Range Notes Sensitive Estradiol (IH) Reviewed date:11/08/2023 11:45:38 AM Interpretation: Performing Lab: Notes/Report: Access 2 ([id number]), Access 2 [facility] (IH) Reviewed date:11/08/2023 11:46:50 AM Interpretation: Performing Lab: Notes/Report: Access 2 ([id number]), Access 2 [facility] Reason For Referral No [...] Status Risk Notes Problem Adult health examination (493483832) Annual visit for general adult medical examination without abnormal findings (Z00.00) Active confirmed Problem Menopause (805939001) Menopause (Z78.0) Active confirmed Problem Menopausal and postmenopausal disorder (N95.9) Active confirmed Problem 151749733 Obesity, Class III, BMI 40-49.9 (morbid obesity) (E66.01) Active confirmed Problem 556513579 S/P laparoscopic hysterectomy (Z90.710) Active confirmed Problem 847873321 Surgical menopause, asymptomatic (E89.40) Active confirmed Vital Signs Blood pressure diastolic 78 mm Hg 01/27/2024 Height 64.50 in 01/27/2024 Blood pressure systolic 132 mm Hg 01/27/2024 Weight 280 lbs 01/27/2024 BMI 47.31 kg/m2 01/27/2024 Encounters Encounter Location Date Provider Diagnosis [address] [address] 01/27/2024 Adenike Hatfield Hormone replacement therapy (HRT) Z79.890 ; S/P laparoscopic hysterectomy Z90.710 and Obesity, Class III, BMI 40-49.9 (morbid obesity) E66.[address] [address] 10/28/2023 Adenike Hatfield Surgical menopause, asymptomatic E89.40 and Hormone replacement therapy (HRT) Z79.[address] [address] 10/28/2023 Adenike Hatfield Menopausal and postmenopausal disorder N95.9 [facility] [address] [place] [address] 01/19/2024 Adenike Hatfield [address] [place], [place] [id number] 03/29/2024 Adenike Hatfield Assessments Encounter Date Diagnosis [...] in three months at her clinic in [place] and follow-up. All of her questions were [...] her chart, we requested them from her [place] clinic at her last visit. She went [...] - discussion of care with another health lawn care technician if indicated - direct face to face [...] - discussion of care with another health lawn care technician if indicated - direct face to face [...] Details Provider Name:Adenike christianson, 07/27/2024 10:00:00 AM, [address] [place], [address], Insurance Providers Payer Name Payer Address Payer Phone Subscriber Number Group Number Insured Name Patient Relationship to Insured Coverage Start Date Coverage End Date UMR (INS BILL) [address] [address] [place] [address] [id number] Sofia Iyer Self - patient is the insured Medical (General) History Medical History History ICD Code chronic pain endometriosis anxiety/depression hx of migraines hypertension ulcers Surgical History Surgery Date(Month/Year) spinal cord stimulator upper endoscopy total hysterectomy ovarian cysts removed D and C Hospitalization History Reason Date(Month/Year) psych 01/21/2023
--- OUTSIDE RECORDS SUMMARY | 2024-05-19 09:42 | XMS_ITS ---
Author Organization [facility] Address [address] [place] [address] Care Team Providers Care Human Service Coordinator Name Role Phone Unavailable Unavailable Unavailable Surgery Details Not on file Complications Check Surgery Details section. Procedure Estimated Blood Loss Check Surgery Details section. Procedure Findings Check Surgery Details section. Procedure Specimens Taken Check Surgery Details section.
--- OUTSIDE RECORDS SUMMARY | 2024-05-19 09:42 | XMS_ITS | Encounter Summary ---
Author Organization [place] Address [address] [place] [address]. [place] [address] Care Team Providers Care Noodle Catalyst Maker Name Role Phone Herson Rhodes MD Primary Care Provider [facility] Unavailabl e Ed Saenz MD Unavailable [phone] Encounter Details Date Type Department Care Team (Latest Contact Info) Description 05/18/2024 Travel Social History Tobacco Use Types Packs/Day [...] Care Team (Late st Contact Info) Description 05/22/2024 1:00 PM CDT Virtual Visit [facility] and Bariatrics Care [place] [id number] [facility] [address] [place] [phone] Dung Alva, PhD [employer] [facility] [address] [facility] 200 [place] [address] 06/12/2024 9:00 AM CDT Virtual Visit [facility] Care [place] [address] [facility] 200 [place] [phone] Dung Alva, PhD [employer]NA [employer] [facility] [address] [place] [address] 07/21/2024 1:00 PM GLOBAL ANALYTICS HEAD Virtual Visit [facility] [place] [address] [facility] [address] [place] [phone] Hien Flood, RD [address] [facility] 200 [place] [address] documented as of this encounter Visit Diagnoses Not on filedocumented in this encounter Additional Health Concerns Assessment Noted Time PHQ-9 Depression Total Score: 2 05/07/20 21 11:37 AM CDT documented as of this encounter Care Teams Noodle Catalyst Maker Relationship Specialty Start Date End Date Herson Rhodes MD PCP - General 06/02/11 Clinic - [facility] [address] [place] [address] Assigned PCP 12/14/23 Ed Saenz MD [address] [facility] 300 [place] [address] Assigned Surgical Provider 05/15/24 documented as of this encounter
--- OUTSIDE RECORDS SUMMARY | 2024-05-19 09:42 | XMS_ITS | Encounter Summary ---
Author Organization [place] Address [address] [place] [address]. [place] [address] Care Team Providers Care Edge Drummer Name Role Phone Herson Rhodes MD Primary Care Provider [facility] Unavailabl e Ed Saenz MD Unavailable [phone] Reason for Referral * Medication Prior Authorization - Closed Specialty Diagnoses / Procedures Referred By Abdirizak t Referred To Contact Diagnoses Morbid obesity (H) Pre-diabetes Miriam Melton APRN BOILER WASHER [facility] [address] Referral ID Status Reason Start Date Expiration Date Visits Re quested Visits Authorized [id number] Closed 1 1 Reason for Visit * Reason Comments [facility] Encounter Details Date Type Department Care Team (Late st Contact Info) Description 05/18/2024 10:00 AM CDT Office Visit [facility] Care [address] [place] [phone] Miriam Melton APRN BOILER WASHER [facility]5 [facility] 200 [place] [address] Healthcare maintenance (Primary Dx); Morbid obesity (H); Pre-diabetes Social History Tobacco Use Types Packs/Day Years [...] Sign Reading Time Taken Comments Blood Pressure 136/82 05/18/2024 9:51 AM CDT Pulse - - Temperature - - Respiratory Rate - - Oxygen Saturation - - Inhaled Oxygen Concentration - - Weight 135.2 kg (298 lb) 05/18/2024 9:51 AM CDT Height 165.1 cm (5' 5) 05/18/2024 9:51 AM CDT Body Mass Index 49.59 05/18/2024 9:51 AM CDT documented in this encounter Plan of Treatment Upcoming Encounters Date Type Department Care Team (Late st Contact Info) Description 05/22/2024 1:00 PM CDT Virtual Visit [facility] and Bariatrics Care [address] [phone] Dung Alva, PhD [employer] [address] [place] [address] 06/12/2024 9:00 AM CDT Virtual Visit [facility] and [facility]ariatrics Care [address] [phone] Dung Alva, PhD [employer] [facility] [employer] [address] [place] [address] 07/21/2024 1:00 PM MOLASSES AND CARAMEL OPERATOR Virtual Visit [facility] [place] [facility] [place] [address] [facility] 200 [place] [address] Hien Flood, RD [address] [facility] 200 [place] [address] Pending Results Name Type Priority Associated Diagnoses Date /Time 25 Hydroxyvitamin D2 and D3 Lab Routine Healthcare maintenance Morbid obesity (H) Pre-diabetes 05/18/2024 11:25 AM CDT Vitamin A Lab Routine Healthcare maintenance Morbid obesity (H) Pre-diabetes 05/18/2024 11:25 AM CDT Vitamin B1 whole blood Lab Routine Healthcare maintenance Morbid obesity (H) Pre-diabetes 05/18/2024 11:25 AM CDT Zinc Lab Routine Healthcare maintenance Morbid obesity (H) Pre-diabetes 05/18/2024 11:25 AM CDT Scheduled Orders Name Type Priority Associated Diagnoses Orde r Schedule 25 Hydroxyvitamin D2 and D3 Lab Routine Healthcare maintenance Morbid obesity (H) Pre-diabetes Expected: 05/18/2024 (Approximate), Expires: 05/18/2025 Vitamin A Lab Routine Healthcare maintenance Morbid obesity (H) Pre-diabetes Expected: 05/18/2024 (Approximate), Expires: 05/18/2025 Vitamin B1 whole blood Lab Routine Healthcare maintenance Morbid obesity (H) Pre-diabetes Expected: 05/18/2024 (Approximate), Expires: 05/18/2025 Zinc Lab Routine Healthcare maintenance Morbid obesity (H) Pre-diabetes Expected: 05/18/2024 (Approximate), Expires: 05/18/2025 documented as of this encounter Results * Vitamin B12 (05/18/2024 11:25 AM CDT) Vitamin B12 430 232 - 1,245 pg/mL 05/18/2024 4:24 PM CDT [facility] Blood BLOOD SPECIMEN / Unknown Venipuncture / Unknown 05/18/2024 11:25 AM CDT 05/18/2024 11:25 AM CDT Miriam Melton APRN BOILER WASHER LAB - BLOOD ORDERABLES [facility] [address] [facility], [address] [phone] * TSH (05/18/2024 11:25 AM CDT) [facility] TSH 1.47 0.30 - 4.20 uIU/mL 05/18/2024 4:24 PM CDT [facility] Blood BLOOD SPECIMEN / Unknown Venipuncture / Unknown 05/18/2024 11:25 AM CDT 05/18/2024 11:25 AM CDT Miriam Melton APRN, CNP LAB - BLOOD ORDERABLES [facility] [address] [facility], [address] [phone] * Parathyroid Hormone Intact (05/18/2024 11:25 AM CDT) [facility] Parathyroid Hormone Intact 37 15 - 65 pg/mL 05/18/2024 3:20 PM CDT [facility] Blood BLOOD SPECIMEN / Unknown Venipuncture / Unknown 05/18/2024 11:25 AM CDT 05/18/2024 11:25 AM CDT Narrative [facility] - 05/18/2024 3:20 PM CDT This result was obtained with the [employer] PTH STAT assay. This reference range differs from PTH assays used in other [facility] laboratories. Miriam Melton APRN, CNP LAB - BLOOD ORDERABLES [facility] [place] [facility] [address] [facility], [address] [phone] * (ABNORMAL) Lipid Profile (05/18/2024 11:25 AM CDT) [facility] Cholesterol 213(H) <200 mg/dL 05/18/2024 4:24 PM CDT [facility] Triglycerides 125 <150 mg/dL 05/18/2024 4:24 PM CDT [facility] Direct Measure HDL 52 >=50 mg/dL 05/18/2024 4:24 PM CDT [facility] LDL Cholesterol Calculated 136(H) <100 mg/dL 05/18/2024 4:24 PM CDT [facility] Non HDL Cholesterol 161(H) <130 mg/dL 05/18/2024 4:24 PM CDT [facility] Patient Fasting > 8hrs? Unknown 05/18/2024 4:24 PM CDT [facility] Blood BLOOD SPECIMEN / Unknown Venipuncture / Unknown 05/18/2024 11:25 AM CDT 05/18/2024 11:25 AM CDT Narrative [facility] - 05/18/2024 4:24 PM CDT Cholesterol Desirable: < 200 mg/dL Borderline High: 200 - 239 mg/dL High: >= 240 mg/dL Triglycerides Normal: < 150 mg/dL Borderline High: 150 - 199 mg/dL High: 200-499 mg/dL Very High: >= 500 mg/dL Direct Measure HDL Female: >= 50 mg/dL Male: >= 40 mg/dL LDL Cholesterol Desirable: < 100 mg/dL Above Desirable: 100 - 129 mg/dL Borderline High: 130 - 159 mg/dL High: ??160 - 189 mg/dL Very High: >= 190 mg/dL Non HDL Cholesterol Desirable: < 130 mg/dL Above Desirable: 130 - 159 mg/dL Borderline High: 160 - 189 mg/dL High: 190 - 219 mg/dL Very High: >= 220 mg/dL Miriam Melton APRN BOILER WASHER LAB - BLOOD ORDERABLES [facility] [place] [facility] [address] [facility], [address] [place] [address] * (ABNORMAL) Hemoglobin A1c (05/18/2024 11:25 AM CDT) Estimated Average Glucose 128(H) <117 mg/dL 05/18/2024 11:37 AM CDT [facility] Hemoglobin A1C 6.1(H) 0.0 - 5.6 % 05/18/2024 11:37 AM CDT [facility] Comment: Normal <5.7% Prediabetes 5.7-6.4% ?? Diabetes 6.5% or higher Note: Adopted from ADA consensus guidelines. Blood BLOOD SPECIMEN / Unknown Venipuncture / Unknown 05/18/2024 11:25 AM CDT 05/18/2024 11:25 AM CDT Miriam Melton APRN [facility] LAB - BLOOD ORDERABLES [address] * Folate (05/18/2024 11:25 AM CDT) [facility] Folic Acid 8.5 4.6 - 34.8 ng/mL 05/18/2024 3:31 PM CDT LABORATORY Blood BLOOD SPECIMEN / Unknown Venipuncture / Unknown 05/18/2024 11:25 AM CDT 05/18/2024 11:25 AM CDT Miriam Melton APRN [facility] LAB - BLOOD ORDERABLES [facility]ATORY [facility] [place] [facility] [address] [facility], [address] * Ferritin (05/18/2024 11:25 AM CDT) [facility] Ferritin 13 6 - 175 ng/mL 05/18/2024 4:24 PM CDT LABORATORY Blood BLOOD SPECIMEN / Unknown Venipuncture / Unknown 05/18/2024 11:25 AM CDT 05/18/2024 11:25 AM CDT Miriam Melton APRN [facility] LAB - BLOOD ORDERABLES [facility]ATORY [facility] [place] [facility] [address] [facility], [address] * (ABNORMAL) Comprehensive metabolic panel (05/18/2024 11:25 AM CDT) Sodium 137 135 - 145 mmol/L 05/18/2024 4:24 PM CDT [facility] Potassium 4.2 3.4 - 5.3 mmol/L 05/18/2024 4:24 PM CDT [facility] Carbon Dioxide (CO2) 22 22 - 29 mmol/L 05/18/2024 4:24 PM CDT [facility] Anion Gap 10 7 - 15 mmol/L 05/18/2024 4:24 PM CDT [facility] Urea Nitrogen 23.5(H) 6.0 - 20.0 mg/dL 05/18/2024 4:24 PM CDT [facility] Creatinine 0.84 0.51 - 0.95 mg/dL 05/18/2024 4:24 PM CDT [facility] GFR Estimate 88 >60 mL/min/1.7 3m2 05/18/2024 4:24 PM CDT [facility] Comment:eGFR calculated usin 2020 CKD-EPI equation. Calcium 9.2 8.8 - 10.4 mg/dL 05/18/2024 4:24 PM CDT [facility] Comment:Reference intervals for this test were updated on 03/07/2024 to reflect our healthy population more accurately. There may be differences in the flagging of prior results with similar values performed with this method. Those prior results can be interpreted in the context of the updated reference intervals. Chloride 105 98 - 107 mmol/L 05/18/2024 4:24 PM CDT [facility] Glucose 85 70 - 99 mg/dL 05/18/2024 4:24 PM CDT [facility] Alkaline Phosphatase 109 40 - 150 U/L 05/18/2024 4:24 PM CDT [facility] AST 23 0 - 45 U/L 05/18/2024 4:24 PM CDT [facility] ALT 22 0 - 50 U/L 05/18/2024 4:24 PM CDT [facility] Protein Total 7.3 6.4 - 8.3 g/dL 05/18/2024 4:24 PM CDT [facility] Albumin 4.3 3.5 - 5.2 g/dL 05/18/2024 4:24 PM CDT [facility] Bilirubin Total 0.2 <=1.2 mg/dL 05/18/2024 4:24 PM CDT [facility] Patient Fasting > 8hrs? Unknown 05/18/2024 4:24 PM CDT [facility] Blood BLOOD SPECIMEN / Unknown Venipuncture / Unknown 05/18/2024 11:25 AM CDT 05/18/2024 11:25 AM CDT Miriam Melton APRN, CNP LAB - BLOOD ORDERABLES [facility] [place] [facility] [address] [facility], [address] [place] [address] * (ABNORMAL) CBC with platelets (05/18/2024 11:25 AM CDT) WBC Count 7.9 4.0 - 11.0 10e3/uL 05/18/2024 11:35 AM CDT [facility] RBC Count 4.09 3.80 - 5.20 10e6/uL 05/18/2024 11:35 AM CDT [facility] Hemoglobin 11.2(L) 11.7 - 15.7 g/dL 05/18/2024 11:35 AM CDT [facility] Hematocrit 35.4 35.0 - 47.0 % 05/18/2024 11:35 AM CDT [facility] MCV 87 78 - 100 fL 05/18/2024 11:35 AM CDT [facility] MCH 27.4 26.5 - 33.0 pg 05/18/2024 11:35 AM CDT [facility] MCHC 31.6 31.5 - 36.5 g/dL 05/18/2024 11:35 AM CDT [facility] RDW 15.5(H) 10.0 - 15.0 % 05/18/2024 11:35 AM CDT [facility] Platelet Count 411 150 - 450 10e3/uL 05/18/2024 11:35 AM CDT [facility] Blood BLOOD SPECIMEN / Unknown Venipuncture / Unknown 05/18/2024 11:25 AM CDT 05/18/2024 11:25 AM CDT Miriam Melton APRN, CNP LAB - BLOOD ORDERABLES [facility] [address] [place] [address], [facility] documented in this encounter Visit Diagnoses Diagnosis Healthcare maintenance- Primary Routine general medical examination at a health care facility Morbid obesity (H) Morbid obesity Pre-diabetes Other abnormal glucose documented in this encounter Additional Health Concerns Assessment Noted Time PHQ-9 Depression Total Score: 2 05/07/20 21 11:37 AM CDT documented as of this encounter Care Teams Edge Drummer Relationship Specialty Start Date End Date Herson Rhodes MD PCP - General 06/02/11 [facility] [address] [place] [address] Assigned PCP 12/14/23 Ed Saenz MD [address] [place] [id number] Assigned Surgical Provider 05/15/24 documented as of this encounter
--- OUTSIDE RECORDS SUMMARY | 2024-05-19 09:42 | XMS_ITS | Clinical Summary ---
Author Organization [facility] Address [address] [place] [address] Care Team Providers Care Coldfusion Name Role Phone Herson Rhodes MD Primary Care Provider [facility] Unavailabl e Ed Saenz MD Unavailable [phone] Allergies Active Allergy Reactions Criticality Noted Date [...] Active fluticasone (FLONASE) 50 MCG/ACT nasal spray [place] 2 sprays into both nostrils daily Active escitalopram (LEXAPRO) 10 MG tablet Take 10 mg by mouth daily Active traMADol HCl 100 MG TABS 100 mg 2 times daily Active lamoTRIgine (LAMICTAL) 150 MG tablet Take 150 mg by mouth daily. Active doxazosin (CARDURA) 1 MG tablet Take 1 mg by mouth at bedtime. Active celecoxib (CELEBREX) 200 MG capsule Take 200 mg by mouth daily. Active omeprazole (PRILOSEC) [address] capsule Take 40 mg by mouth daily. Active pregabalin (LYRICA) 150 MG capsule Take 150 mg by mouth 3 times daily. Active estradiol (CLIMARA) 0.05 MG/24HR weekly patch Place 1 patch onto the skin 2 times a week. Active cetirizine (ZYRTEC) 10 MG tablet Take 10 mg by mouth daily. Active DULoxetine (CYMBALTA) 30 MG capsule Take 30 mg by mouth 2 times daily. Active DULoxetine (CYMBALTA) 60 MG capsule Take 60 mg by mouth daily. Active furosemide (LASIX) 20 MG tablet Take 20 mg by mouth daily. Active neomycin-polymixi n-dexamethasone (MAXITROL) ophthalmic ointment Active tirzepatide (MOUNJARO) 2.5 MG/0.5ML pen Inject 2.5 mg subcutaneously every 7 days. Active tirzepatide (MOUNJARO) 5 MG/0.5ML penIndications:Mo rbid obesity (H),Pre-diabetes Inject 5 mg subcutaneously every 7 days for 28 days. 2 mL 4 06/27/20 24 Active olopatadine (PATANOL) 0.1 % ophthalmic solution Place 1 drop into both eyes 2 times daily 05/18/20 24 Discontinued( Therapy completed (No AVS)) Gabapentin 10 % CREAIndications:P ain Externally apply 1 g topically 4 times daily 30 mL 0 05/18/20 24 Discontinued( Therapy completed (No AVS)) estradiol (ESTRACE) 0.5 MG tabletIndications :Absence of menstruation Take 1 tablet (0.5 mg) by mouth daily 90 tablet 3 1 05/18/20 24 Discontinued( Therapy completed (No AVS)) Active Problems Problem Noted Date Diagnosed Date [...] Encounters Date Type Department Care Team Description 05/18/2024 11:15 AM CDT Lab [facility] [address] [place] [address] [address] [place] [address] Healthcare maintenance; Morbid obesity (H); Pre-diabetes 05/18/2024 10:00 AM CDT Office Visit [facility] [address] [place] [address] Miriam Melton APRN CNP Healthcare maintenance (Primary Dx); Morbid obesity (H); Pre-diabetes 05/18/2024 Travel 05/13/2024 Travel 05/09/2024 1:45 PM CDT Office Visit [facility] [address] [place] [address] Kashif Su MD Fasen, Geoffrey, MD Class 3 severe obesity due to excess calories with serious comorbidity and body mass index (BMI) of 50.0 to 59.9 in adult (H) (Primary Dx); Duodenal stenosis 05/09/2024 Travel 05/04/2024 Travel 05/02/2024 Transcribe Orders GENERIC EXTERNAL DATA DEPARTMENT Kashif Su MD Duodenal stenosis (Primary Dx) 05/01/2024 Medical Correspondence [facility] Information Management [address] [place] [address] [address] [place] [address] Scan, Non-Provider from Last 3 Months Immunizations [...] Pressure 136/82 05/18/2024 9:51 AM CDT Pulse 72 02/18/2023 1:10 PM CDT Temperature 36.8 ??C (98.2 ??F) 02/18/2023 1:10 PM CD T Respiratory Rate 14 02/18/2023 1:10 PM CDT Oxygen Saturation 99% 02/18/2023 1:10 PM CDT Inhaled Oxygen Concentration - - Weight 135.2 kg (298 lb) 05/18/2024 9:51 AM CDT Height 165.1 cm (5' 5) 05/18/2024 9:51 AM CDT Body Mass Index 49.59 05/18/2024 9:51 AM CDT Plan of Treatment Upcoming Encounters Date Type Department Care Team (Late st Contact Info) Description 05/22/2024 1:00 PM CDT Virtual Visit [facility] [address] [place] [phone] Dung Alva, PhD [employer] [address] [place], [place] [phone] 06/12/2024 9:00 AM CDT Virtual Visit [facility] [address] [phone] Dung Alva, PhD [employer] [address] [place] [address] 07/21/2024 1:00 PM MATE FOURTH Virtual Visit [facility] [address] [place] [phone] Hien Flood, RD [address] [facility] [address] [place] [address] Health Maintenance Due Date Last Done Comments ADVANCE CARE PLANNING 1980 ANNUAL REVIEW OF HM ORDERS 1980 URINE DRUG SCREEN 1980 YEARLY PREVENTIVE VISIT 05/07/2022 05/07/20, 03/04/2020, 09/26/2018, Additional history exists MAMMO SCREENING 05/07/2023 05/07/2021 COVID-19 Vaccine ( season) 2024 04/30/2022, 06/12/2021, 10/03/2020, Additional history exists INFLUENZA VACCINE (#1) 2024 , 07/03/2022, 07/10/2021, Additional history exists HPV TEST 05/07/2024 05/07/2021, 02/20, 09/26/2018, Additional history exists PAP 05/07/2024 05/07/2021, 02/20, 09/26/2018, Additional history exists GLUCOSE 05/18/2027 05/18/2024, 12/20/2015 DTAP/TDAP/TD IMMUNIZATION (5 - Td or Tdap) 04/07/2029 04/07/2019, 06/04/2008, 06/04/2008, Additional history exists LIPID 05/18/2029 05/18/2024 RSV VACCINE (1 - 1-dose 75+ series) [...] this topic Medical Devices Implanted Type Area Corporate Travel Counselor Device Identifier Shelf Expiration Date Model / Serial / Lot Primeadvanced Surescan Mri Neurostimulator Implanted:Qty: 1 on 02/14/2014 by Aj Perkins MD at [facility] Left: Buttocks [employer] 03/19/2015 [id number] / [id number] / Explanted Type Area Corporate Travel Counselor Device Identifier Shelf Expiration Date Model / Serial / Lot Prime Advanced Neurostimulator Implanted:Qty: 1 on 03/16/2011 at [facility] Explanted:Qty: 1 on 02/14/2014 by Aj Perkins MD at [facility] Left: Buttocks [employer] 03/05/2012 [id number] / [id number] / Description:Prime advanced M ulti program Neurostimulator [employer] Procedures Procedure Name Priority Date/Time Associated Diagnosis Comments VITAMIN B12 Routine 05/18/2024 11:25 AM CDT Healthcare maintenance Morbid obesity (H) Pre-diabetes TSH Routine 05/18/2024 11:25 AM CDT Healthcare maintenance Morbid obesity (H) Pre-diabetes PARATHYROID HORMONE INTACT Routine 05/18/2024 11:25 AM CDT Healthcare maintenance Morbid obesity (H) Pre-diabetes LIPID PROFILE Routine 05/18/2024 11:25 AM CDT Healthcare maintenance Morbid obesity (H) Pre-diabetes HEMOGLOBIN A1C Routine 05/18/2024 11:25 AM CDT Healthcare maintenance Morbid obesity (H) Pre-diabetes FOLATE Routine 05/18/2024 11:25 AM CDT Healthcare maintenance Morbid obesity (H) Pre-diabetes FERRITIN Routine 05/18/2024 11:25 AM CDT Healthcare maintenance Morbid obesity (H) Pre-diabetes COMPREHENSIVE METABOLIC PANEL Routine 05/18/2024 11:25 AM CDT Healthcare maintenance Morbid obesity (H) Pre-diabetes CBC WITH PLATELETS Routine 05/18/2024 11 :25 AM CDT Healthcare maintenance Morbid obesity (H) Pre-diabetes GYNECOLOGIC CYTOLOGY Routine 05/07/2021 11:50 AM CDT Encounter for gynecological examination without abnormal finding HPV HIGH RISK TYPES DNA CERVICAL Routine 05/07/2021 11:50 AM CDT Encounter for gynecological examination without abnormal finding MA SCREENING DIGITAL BILATERAL Routine 05/07/2021 11:20 AM CDT Visit for screening mammogram HIV RAPID ANTIBODY SCREEN STAT 01/28/2010 12:27 PM CDT HEPATITIS C ANTIBODY STAT 01/28/2010 12:27 PM CDT from Last 3 Months or Most Recently Relevant to Health Maintenance Results * TSH (05/18/2024 11:25 AM CDT) TSH 1.47 0.30 - 4.20 uIU/mL 05/18/2024 4:24 PM CDT [facility] Blood BLOOD SPECIMEN / Unknown Venipuncture / Unknown 05/18/2024 11:25 AM CDT 05/18/2024 11:25 AM CDT Miriam Melton APRN, CNP LAB - BLOOD ORDERABLES [facility] [address] [facility], [address] [phone] * Parathyroid Hormone Intact (05/18/2024 11:25 AM CDT) Parathyroid Hormone Intact 37 15 - 65 pg/mL 05/18/2024 3:20 PM CDT [facility] Blood BLOOD SPECIMEN / Unknown Venipuncture / Unknown 05/18/2024 11:25 AM CDT 05/18/2024 11:25 AM CDT Narrative [facility] - 05/18/2024 3:20 PM CDT This result was obtained with the Hannah [employer] PTH STAT assay. This reference range differs from PTH assays used in other [facility] laboratories. Miriam Melton APRN, CNP LAB - BLOOD ORDERABLES [facility] [address] [facility], [address] [place] [address] * (ABNORMAL) Lipid Profile (05/18/2024 11:25 AM CDT) Cholesterol 213(H) <200 mg/dL 05/18/2024 4:24 PM [...] High: >= 220 mg/dL Miriam Melton APRN HVAC CONTROLS TECHNICIAN LAB - BLOOD ORDERABLES [facility] [address] [facility], [address] [place] [address] * (ABNORMAL) Hemoglobin A1c (05/18/2024 11:25 AM CDT) Estimated Average Glucose 128(H) <117 mg/dL 05/18/2024 11:37 AM CDT [email or web address] Hemoglobin A1C 6.1(H) 0.0 - 5.6 % 05/18/2024 11:37 AM CDT [email or web address] Comment: Normal <5.7% Prediabetes 5.7-6.4% ?? Diabetes 6.5% or higher Note: Adopted from ADA consensus guidelines. Blood BLOOD SPECIMEN / Unknown Venipuncture / Unknown 05/18/2024 11:25 AM CDT 05/18/2024 11:25 AM CDT Miriam Melton APRN, CNP LAB - BLOOD ORDERABLES [facility] [[email or web address] [address] * Folate (05/18/2024 11:25 AM CDT) Pathologist [facility] Folic Acid 8.5 4.6 - 34.8 ng/mL 05/18/2024 3:31 PM CDT [facility] Blood BLOOD SPECIMEN / Unknown Venipuncture / Unknown 05/18/2024 11:25 AM CDT 05/18/2024 11:25 AM CDT Miriam Melton APRN, CNP LAB - BLOOD ORDERABLES [facility] [address] [facility], [address] [place] [address], [facility] * Ferritin (05/18/2024 11:25 AM CDT) Pathologist [facility] Ferritin 13 6 - 175 ng/mL 05/18/2024 4:24 PM CDT [facility] Blood BLOOD SPECIMEN / Unknown Venipuncture / Unknown 05/18/2024 11:25 AM CDT 05/18/2024 11:25 AM CDT Miriam Melton SEMICONDUCTOR DEVELOPMENT TECHNICIAN HVAC CONTROLS TECHNICIAN LAB - BLOOD ORDERABLES [facility] [address] [facility], [address] [place] [address], [facility] * (ABNORMAL) Comprehensive metabolic panel (05/18/2024 11:25 [...] 05/18/2024 11:25 AM CDT Miriam Melton APRN [facility] LAB - BLOOD ORDERABLES [facility] [address] [facility], [address] * Vitamin B12 (05/18/2024 11:25 AM CDT) Pathologist [facility] Vitamin B12 430 232 - 1,245 pg/mL 05/18/2024 4:24 PM CDT [facility] Blood BLOOD SPECIMEN / Unknown Venipuncture / Unknown 05/18/2024 11:25 AM CDT 05/18/2024 11:25 AM CDT Miriam Melton APRN [facility] LAB - BLOOD ORDERABLES [facility] [address] [facility], [address] * (ABNORMAL) CBC with platelets (05/18/2024 11:25 AM CDT) Pathologist [facility] WBC Count 7.9 4.0 - 11.0 10e3/uL [...] - 450 10e3/uL 05/18/2024 11:35 AM CDT [facility] Blood BLOOD SPECIMEN / Unknown Venipuncture / Unknown 05/18/2024 11:25 AM CDT 05/18/2024 11:25 AM CDT Miriam Melton APRN HVAC CONTROLS TECHNICIAN LAB - BLOOD ORDERABLES Performing Organization Address City/State/[facility] Co de Phone Number [facility] [address] * Pap thin layer screen with HPV - recommended age 30 - 65 years (05/07/2021 11:50 AM CDT) Interpretation Negative for Intraepithelial Lesion or Malignancy (NILM) 05/09/2021 2:32 PM CDT [facility] Specimen Adequacy Satisfactory for evaluation, endocervical/paul sformation zone component absent 05/09/2021 2:32 PM CDT [facility] Clinical Information complete hysterectomy 05/09/2021 2:32 PM CDT [facility] Reflex Testing Yes regardless of result 05/09/2021 2:32 PM CDT [facility] Previous Abnormal? No 05/09/2021 2:32 PM CDT [facility] Performing Labs The technical component of this testing was completed at [facility] 05/09/2021 2:32 PM CDT [facility] Brushing VAGINAL STRUCTURE / Unknown 05/07/2021 11:50 AM CDT 05/07/2021 12:21 PM CDT Alan JENNINGS - VALENTIN MARTIN [facility] [address] [place] [address], [facility] [phone] * HPV High Risk Types DNA Cervical (05/07/2021 11:50 AM CDT) Other HR HPV Negative Negative 05/13/2021 2:50 PM CDT [facility] HPV16 DNA Negative Negative 05/13/2021 2:50 PM CDT [facility] HPV18 DNA Negative Negative 05/13/2021 2:50 PM CDT [facility] FINAL DIAGNOSIS This patient's sample is negative for HPV DNA. This test was developed and its performance characteristics determined by the [facility], Molecular Diagnostics Laboratory. It has not been [...] followup is recommended. 05/13/2021 2:50 PM CDT [facility] Brushing VAGINAL STRUCTURE / Unknown Non-blood Collection / Unknown 05/07/2021 11:50 AM CDT 05/12/2021 8:50 AM CDT Alan Shah MD LAB - BLOOD ORDERABL ES [facility] [address] [facility], [address] [place] [address], [facility] [phone] * MA Screening Digital Bilateral (05/07/2021 11:20 [...] Shah MD [facility]G MAMMOGRAPHY ORDE CAITLYN * HIV 1 and 2 rapid screen [...] Advance Directives For more information, please contact: [phone] * Full Code (Latest Code Status on File) Date Activated Date Inactivated Comments 12/19/2015 3:02 PM 12/20/2015 1:10 PM Care Teams Coldfusion Relationship Specialty Start Date End Date Herson Rhodes MD PCP - General 06/02/11 [facility] [id number] [place] [id number] Assigned PCP 12/14/23 Ed Saenz MD [address] [place] [id number] Assigned Surgical Provider 05/15/24
--- OUTSIDE RECORDS SUMMARY | 2024-05-19 09:42 | XMS_ITS | Clinical Summary ---
Author Organization [facility] Address [place], [place] [address] Care Team Providers Care Field Irrigation Worker Name Role Phone Herson Rhodes MD [...] Garcia MD Medical Devices Implanted Type Area Production Control Manager Device Identifier Shelf Expiration Date Model / Serial / Lot Stimulator Spinal Primeadvanedsurescan Mri - [id number] Implanted:Qty: 1 on 12/02/2017 by Herson Lala MD at [facility] Left: Flank [employer] Therapy 12/18/2018 [id number]# / [id number] / Stimulator Spinal Intellis Mri - [id number] Implanted:Qty: 1 on 06/19/2020 by Hesron Lala MD at [facility] Left: Flank [employer] Pain Therapy 04/19/2021 [id number]# / / [id number] Envlp Neuro Tyrx Absorb Antibacterial - [id number] Implanted:Qty: 1 on 06/19/2020 by Herson Lala MD at [facility] Left: Flank [employer] 01/10/2021 [id number] # / / [id number] Explanted Type Area Production Control Manager Device Identifier Shelf Expiration Date Model / Serial / Lot [id number] - [id number] Explanted:Qty: 1 on 12/02/2017 at [facility] Left: Flank [employer] [id number] / [id number] / Description:Spinal cord gene rator battery Procedures Procedure Name Priority Date/Time Associated Diagnosis Comments ANTI HCV Timed 08/21/2004 9:55 AM ELECTROPLATING SALES REPRESENTATIVE from Last 3 Months or Most Recently Relevant to Health Maintenance Results * ANTI HCV (08/21/2004 9:55 AM ELECTROPLATING SALES REPRESENTATIVE) ANTI HCV Non-reactiv e [facility] 08/21/2004 9:55 AM ELECTROPLATING SALES REPRESENTATIVE 08/21/2004 7:46 PM ELECTROPLATING SALES REPRESENTATIVE Narrative [facility] - 08/26/2004 1:39 PM ELECTROPLATING SALES REPRESENTATIVE Testing Performed By [place], [place] Radha Huff TOLL [employer] SEND OUTS [facility] [address] [place] [address] from Last 3 Months or Most Recently [...] 7:00 AM 07/21/2009 2:26 AM Care Teams Field Irrigation Worker Relationship Specialty Start Date End Date Herson Rhodes MD [address] [place] [id number] PCP - General Family Practice 06/10/20
--- OUTSIDE RECORDS SUMMARY | 2024-05-19 09:42 | XMS_ITS | Referral Summary ---
Author Organization [place] Address [address] [place] [address]. [place] [address] Care Team Providers Care Bill Collector Name Role Phone Herson Rhodes MD Primary Care Provider [phone] [facility] e Ed Saenz MD Unavailable [phone] Encounters Date Type Department Care Team Description 05/18/2024 11:15 AM CDT Lab [facility] Laboratory [address] [place] [address] [address] [place] [phone] Healthcare maintenance; Morbid obesity (H); Pre-diabetes 05/18/2024 Travel 05/18/2024 10:00 AM CDT [facility] [address] 200 [place] [phone] Miriam Melton APRN CNP Healthcare maintenance (Primary Dx); Morbid obesity (H); Pre-diabetes 05/13/2024 Travel 05/09/2024 Travel 05/09/2024 1:45 PM CDT [facility] [address] 200 [place] [phone] Kashif Su MD Fasen, Geoffrey, MD Class 3 severe obesity due to excess calories with serious comorbidity and body mass index (BMI) of 50.0 to 59.9 in adult (H) (Primary Dx); Duodenal stenosis 05/04/2024 Travel 05/02/2024 Transcribe Orders GENERIC EXTERNAL DATA DEPARTMENT Kashif Su MD Duodenal stenosis (Primary Dx) 05/01/2024 Medical Correspondence [facility] [address] [place] [address] [address] [place] [address] Scan, Non-Provider from Last 3 Months Allergies [...] Active fluticasone (FLONASE) 50 MCG/ACT nasal spray [place] 2 sprays into both nostrils daily Active [...] removal of cervix or age- until 2025 ', '12, NIL paps- 12/19/15 total hysterectomy including [...] Description 05/22/2024 1:00 PM CDT [facility] [address] [place] [address] Dung Alva, PhD [employer] [facility] [address] [place] [address] 06/12/2024 9:00 AM CDT Virtual Visit [facility] [address] [place] [address] Dung Alva, PhD [employer] [address] [place] [address] 07/21/2024 1:00 PM BARISTA [facility] [address] [address] Hien Flood, RD [address]45 [facility] 200 [place] [address] Medical Devices Implanted Type Area Patcher Wood Welder Device Identifier Shelf Expiration Date Model / Serial / Lot Primeadvanced Surescan Mri Neurostimulator Implanted:Qty: 1 on 02/14/2014 by Aj Perkins MD at [facility] Left: Buttocks [employer] 03/19/2015 [id number] / [id number] / Explanted Type Area Patcher Wood Welder Device Identifier Shelf Expiration Date Model / Serial / Lot Prime Advanced Neurostimulator Implanted:Qty: 1 on 03/16/2011 at [facility] Explanted:Qty: 1 on 02/14/2014 by Aj Perkins MD at [facility] Left: Buttocks [employer] 03/05/2012 [id number] / [id number] / Description:Prime advanced M ulti program [...] Melton APRN, CNP LAB - BLOOD ORDERABLES LABORATORY [facility] Core Lab 500 [facility], Room [address] * Parathyroid Hormone Intact (05/18/2024 11:25 AM [...] differs from PTH assays used in other [facility] laboratories. Miriam Melton APRN, CNP LAB - BLOOD ORDERABLES LABORATORY [facility] Core Lab 500 [facility], Room [address] [address] * (ABNORMAL) Lipid Profile (05/18/2024 11:25 [...] High: >= 220 mg/dL Miriam Melton APRN FAX MACHINE REPAIRER LAB - BLOOD ORDERABLES [facility] LABORATORY [facility] [place] Core Lab 500 [facility], [address] [place] [address] * (ABNORMAL) Hemoglobin A1c (05/18/2024 11:25 AM CDT) Pathologist [facility] Estimated Average Glucose 128(H) <117 mg/dL 05/18/2024 11:37 AM CDT [facility] Hemoglobin A1C 6.1(H) 0.0 - 5.6 % 05/18/2024 11:37 AM CDT [facility] Comment: Normal <5.7% Prediabetes 5.7-6.4% ?? Diabetes 6.5% or higher Note: Adopted from ADA consensus guidelines. Blood BLOOD SPECIMEN / Unknown Venipuncture / Unknown 05/18/2024 11:25 AM CDT 05/18/2024 11:25 AM CDT Miriam Melton APRN [facility] LAB - BLOOD ORDERABLES [facility] LABORATORY [address] * Folate (05/18/2024 11:25 AM CDT) Pathologist [facility] Folic Acid 8.5 4.6 - 34.8 ng/mL 05/18/2024 3:31 PM CDT [facility] Blood BLOOD SPECIMEN / Unknown Venipuncture / Unknown 05/18/2024 11:25 AM CDT 05/18/2024 11:25 AM CDT Miriam Melton APRN [facility] LAB - BLOOD ORDERABLES U LABORATORY [facility] [place] Core Lab [address] [facility], Room [address] [place] [address] * Ferritin (05/18/2024 11:25 AM CDT) [facility] Ferritin 13 6 - 175 ng/mL 05/18/2024 4:24 PM CDT [facility] LAB[facility]ATORY Blood BLOOD SPECIMEN / Unknown Venipuncture / Unknown 05/18/2024 11:25 AM CDT 05/18/2024 11:25 AM CDT Miriam Menendezan Geronimo CART PUSHER FAX MACHINE REPAIRER LAB - BLOOD ORDERABLES [facility] LABORATORY [facility] [place] Core Lab [address] [facility], Room [address] [place] [address], [facility] * (ABNORMAL) Comprehensive metabolic panel [...] 05/18/2024 11:25 AM CDT Miriam Melton APRN FAX MACHINE REPAIRER LAB - BLOOD ORDERABLES U LABORATORY [facility] [place] Core Lab [address] [facility], Room [address] * Vitamin B12 (05/18/2024 11:25 AM CDT) Pathologist [facility] Vitamin B12 430 232 - 1,245 pg/mL 05/18/2024 4:24 PM CDT [facility]ORY Blood BLOOD SPECIMEN / Unknown Venipuncture / Unknown 05/18/2024 11:25 AM CDT 05/18/2024 11:25 AM CDT Miriam Melton APRN, CNP LAB - BLOOD ORDERABLES LABORATORY [facility] [place] Core Lab [address] [facility], Room [address] * (ABNORMAL) CBC with platelets (05/18/2024 11:25 AM CDT) Pathologist [facility] WBC Count 7.9 4.0 - 11.0 10e3/uL [...] 05/18/2024 11:25 AM CDT Miriam Melton APRN FAX MACHINE REPAIRER LAB - BLOOD ORDERABLES Performing Organization Address City/State/[facility] Co de Phone Number [facility] [address] * Pap thin layer screen with HPV - recommended age 30 - 65 years (05/07/2021 11:50 AM CDT) Interpretation Negative for Intraepithelial Lesion or Malignancy (NILM) 05/09/2021 2:32 PM CDT [facility] Specimen Adequacy Satisfactory for evaluation, endocervical/paul sformation zone component absent 05/09/2021 2:32 PM CDT [facility] Clinical Information complete hysterectomy 05/09/2021 2:32 PM CDT [facility] Reflex Testing Yes regardless of result 05/09/2021 2:32 PM CDT [facility] Previous Abnormal? No 05/09/2021 2:32 PM CDT [facility] Performing Labs The technical component of this testing was completed at [facility] Laboratory 05/09/2021 2:32 PM CDT [facility]OR[facility]ORY Brushing VAGINAL STRUCTURE / Unknown 05/07/2021 11:50 AM CDT 05/07/2021 12:21 PM CDT Alan JENNINGS - VALENTIN MARTIN [facility] [address] [place] [address], [facility] [phone] * HPV High Risk Types DNA Cervical (05/07/2021 11:50 AM CDT) Other HR HPV Negative Negative 05/13/2021 2:50 PM CDT [facility] HPV16 DNA Negative Negative 05/13/2021 2:50 PM CDT [facility] HPV18 DNA Negative Negative 05/13/2021 2:50 PM CDT [facility] FINAL DIAGNOSIS This patient's sample is negative for HPV DNA. This test was developed and its performance characteristics determined by the [facility], Molecular Diagnostics Laboratory. It has not [...] is recommended. 05/13/2021 2:50 PM CDT [facility] Brushing VAGINAL STRUCTURE / Unknown Non-blood Collection / Unknown 05/07/2021 11:50 AM CDT 05/12/2021 8:50 AM CDT Alan Shah MD LAB - BLOOD ORDERABL ES [facility] Lab [address] [facility], [address] [place] [address], [facility] [phone] * MA Screening Digital Bilateral (05/07/2021 11:20 [...] patient. Alan Shah MD IMG MAMMOGRAPHY NORBERT BRADY * HIV 1 and 2 rapid screen [...] Advance Directives For more information, please contact: [phone] * Full Code (Latest Code Status on File) Date Activated Date Inactivated Comments 12/19/2015 3:02 PM 12/20/2015 1:10 PM Care Teams Bill Collector Relationship Specialty Start Date End Date Herson Rhodes MD PCP - General 06/02/11 [facility] - [address] [address] Assigned PCP 12/14/23 Ed Saenz MD [address] [place] [address] Assigned Surgical Provider 05/15/24
--- OUTSIDE RECORDS SUMMARY | 2024-05-19 09:42 | XMS_ITS | Encounter Summary ---
Author Organization [facility] Address [address] [place] [address]. [place] [address] Care Team Providers Care Press Breaker Name Role Phone Herson Rhodes MD Primary Care Provider [facility] Unavailabl e Ed Saenz MD Unavailable [phone] Encounter Details Date Type Department Care Team (Late st Contact Info) Description 05/18/2024 11:15 AM CDT Lab [address] [address] Healthcare maintenance; Morbid obesity (H); Pre-diabetes Social History Tobacco [...] Description 05/22/2024 1:00 PM CDT Virtual Visit [facility] and Bariatrics Care [place] [address] [facility] 200 [place] [address] Dung Alva, PhD [employer] [address] [place] [address] 06/12/2024 9:00 AM CDT Virtual Visit [facility] [place] [address] [facility] 200 [place] [address] Dung Alva, PhD [employer] [address] [place] [address] 07/21/2024 1:00 PM ATHLETIC FIELD CUSTODIAN Virtual Visit [facility] Surgery [facility] and Bariatrics Care [place] [address] [facility] 200 [place] [address] Hien Flood, RD [address] [facility] 200 [place] [address] Pending Results Name Type Priority Associated Diagnoses [...] obesity (H) Pre-diabetes 05/18/2024 11:25 AM CDT documented as of this encounter Procedures Procedure Name Priority Date/Time Associated Diagnosis Comments TSH Routine 05/18/2024 11:25 AM CDT Healthcare [...] CDT Healthcare maintenance Morbid obesity (H) Pre-diabetes VITAMIN B12 Routine 05/18/2024 11:25 AM CDT Healthcare maintenance Morbid obesity (H) Pre-diabetes CBC WITH PLATELETS Routine 05/18/2024 11 :25 AM CDT Healthcare maintenance Morbid obesity (H) Pre-diabetes documented in this encounter Results * Vitamin B12 (05/18/2024 11:25 AM CDT) Vitamin B12 430 232 - 1,245 pg/mL 05/18/2024 4:24 PM CDT [facility] LAB[facility]ATORY Blood BLOOD SPECIMEN / Unknown Venipuncture / Unknown 05/18/2024 11:25 AM CDT 05/18/2024 11:25 AM CDT Miriam Melton APRN GIMP TACKER LAB - BLOOD ORDERABLES [facility] LABORATORY [facility] Core Lab [address] [facility], [address] [place] [address] * TSH (05/18/2024 11:25 AM CDT) TSH 1.47 0.30 - 4.20 uIU/mL 05/18/2024 4:24 PM CDT [facility]ATORY Blood BLOOD SPECIMEN / Unknown Venipuncture / Unknown 05/18/2024 11:25 AM CDT 05/18/2024 11:25 AM CDT Miriam Melton APRN, CNP LAB - BLOOD ORDERABLES U LABORATORY [facility] [place] Core Lab 500 [facility], Room [address] [phone] * Parathyroid Hormone Intact (05/18/2024 11:25 [...] differs from PTH assays used in other [facility] laboratories. Miriam Melton APRN, CNP LAB - BLOOD ORDERABLES Performing Organization Address City/[facility]/ZIP Co de Phone Number U LABORATORY [facility] [place] Core Lab [address] [facility], [address] [address] [place] [address] * (ABNORMAL) Lipid Profile (05/18/2024 11:25 AM [...] AM CDT 05/18/2024 11:25 AM CDT Narrative LABORATORY - 05/18/2024 4:24 PM CDT Cholesterol [...] Very High: >= 220 mg/dL Miriam Melton APRN, CNP LAB - BLOOD ORDERABLES LABORATORY [facility] [place] Core Lab [address] [facility], [address] [place] [address] * (ABNORMAL) Hemoglobin A1c (05/18/2024 11:25 AM CDT) [facility] Estimated Average Glucose 128(H) <117 mg/dL 05/18/2024 11:37 AM CDT [facility] Hemoglobin A1C 6.1(H) 0.0 - 5.6 % 05/18/2024 11:37 AM CDT [facility] Comment: Normal <5.7% Prediabetes 5.7-6.4% ?? Diabetes 6.5% or higher Note: Adopted from ADA consensus guidelines. Blood BLOOD SPECIMEN / Unknown Venipuncture / Unknown 05/18/2024 11:25 AM CDT 05/18/2024 11:25 AM CDT Miriam Melton APRN, CNP LAB - BLOOD ORDERABLES [facility] [address] * Folate (05/18/2024 11:25 AM CDT) Pathologist [facility] Folic Acid 8.5 4.6 - 34.8 ng/mL 05/18/2024 3:31 PM CDT [facility] Blood BLOOD SPECIMEN / Unknown Venipuncture / Unknown 05/18/2024 11:25 AM CDT 05/18/2024 11:25 AM CDT Miriam Melton APRN GIMP TACKER LAB - BLOOD ORDERABLES LABORATORY [facility] [place] Core Lab [address] [facility], [address] * Ferritin (05/18/2024 11:25 AM CDT) Pathologist [facility] Ferritin 13 6 - 175 ng/mL 05/18/2024 4:24 PM CDT [facility] Blood BLOOD SPECIMEN / Unknown Venipuncture / Unknown 05/18/2024 11:25 AM CDT 05/18/2024 11:25 AM CDT Miriam Melton APRN [facility] LAB - BLOOD ORDERABLES LABORATORY [facility] Core Lab [address] [facility], [address] * (ABNORMAL) Comprehensive metabolic panel (05/18/2024 11:25 AM CDT) Pathologist [facility] Sodium 137 135 - 145 mmol/L 05/18/2024 [...] 4:24 PM CDT [facility] Comment:eGFR calculated us2020 CKD-EPI equation. Calcium 9.2 8.8 - 10.4 [...] CDT 05/18/2024 11:25 AM CDT Miriam Melton NURSING EXECUTIVE GIMP TACKER LAB - BLOOD ORDERABLES [facility] Core Lab [address] [facility], [address] [place] [address], [facility] * (ABNORMAL) CBC with platelets (05/18/2024 11:25 [...] 05/18/2024 11:25 AM CDT Miriam Melton APRN GIMP TACKER LAB - BLOOD ORDERABLES [facility] [address] [address] documented in this encounter Visit Diagnoses Diagnosis Healthcare maintenance Routine general medical examination at a health care facility Morbid obesity (H) Morbid obesity Pre-diabetes Other abnormal glucose documented in this encounter Additional Health Concerns Assessment Noted Time PHQ-9 Depression Total Score: 2 05/07/20 21 11:37 AM CDT documented as of this encounter Care Teams Press Breaker Relationship Specialty Start Date End Date Herson Rhodes MD PCP - General 06/02/11 [facility] [address] [place] [address] Assigned PCP 12/14/23 Ed Saenz MD [address] [place] [address] Assigned Surgical Provider 05/15/24 documented as of this encounter
--- OUTSIDE RECORDS SUMMARY | 2024-05-19 09:42 | XMS_ITS | Referral Summary ---
Author Organization [facility] Address [address] [place] [address] Care Team Providers Care Kitchen Helper Name Role Phone Unavailable Primary Care Provider Unavailabl e Source Comments Patient records contain information from all sites at [facility]. For routine questions regarding patient records, call [phone] during business hours, M-F 8:00 AM - 5:00 PM Central Time. Record requests for emergency care only can be directed to [phone] at any time.[facility] Immunizations Name Administration Dates Next Due DTaP [...] Comments Blood Pressure 122/80 07/01/2015 11:34 AM CART DRIVER Pulse 80 07/01/2015 11:34 AM CART DRIVER Temperature - - Respiratory Rate 14 07/01/2015 11:34 AM CART DRIVER Oxygen Saturation - - Inhaled Oxygen Concentration - - Weight 104 kg (229 lb 4.5 oz) 07/01/2015 11:34 A M CART DRIVER Height 166 cm (5' 5.35) 07/29/2015 2:10 PM CART DRIVER Body Mass Index 37.74 07/01/2015 11:34 AM CART DRIVER Plan of Treatment Not on file
--- OUTSIDE RECORDS SUMMARY | 2024-05-19 09:43 | XMS_ITS | Encounter Summary ---
Author Organization [place] Address [address] [place] [address]. [place] [address] Care Team Providers Care Cloth Roll Winder Name Role Phone Herson Rhodes MD Primary Care Provider Alan Shah MD Unavailable Betty Stevens NP Unavailable Unavailable [facility] Unavailabl e Ed Saenz MD Unavailable [phone] Encounter Details Date Type Department Care Team (Late st Contact Info) Description 12/05/2019 MyC Medical Advice [facility] Virtual Urgent Care [address] [address] Radha Roblero MD [address] [facility] [address] [place] [address] Social History Tobacco Use Types [...] Description 05/22/2024 1:00 PM CDT Virtual Visit [facility] Surgery [facility] and Bariatrics Care [place] [address] [place] [address] 200 [place] [address] Dung Alva, PhD [employer] [address] [facility] [place] [address] 06/12/2024 9:00 AM CDT Virtual Visit [facility] Surgery [facility] and Bariatrics Care [place] [address] [place] [address] 200 [place] [address] Dung Alva, PhD [employer] [address] [facility] [place] [address] 07/21/2024 1:00 PM NETWORK OPERATIONS LEAD Virtual Visit [facility] and Bariatrics Care [place] [address] [place] [address] 200 [place] [address] Hien Flood, RD [address] [facility] [address] [place] [address] documented as of this encounter Visit Diagnoses Not on filedocumented in this encounter Additional Health Concerns Assessment Noted Time PHQ-9 Depression Total Score: 10 019 2:14 PM NETWORK OPERATIONS LEAD documented as of this encounter Care Teams Cloth Roll Winder Relationship Specialty Start Date End Date Herson Rhodes MD PCP - General 06/02/11 [place] [address] [place] [address] Assigned OBGYN Provider 06/14/20 Betty Stevens NP Assigned PCP 01/28/23 12/13/23 [facility] [address] [place] [address] Assigned PCP 12/14/23 Ed Saenz MD [facility] [address] Assigned Surgical Provider 05/15/24 documented as of this encounter
--- OUTSIDE RECORDS SUMMARY | 2024-05-19 09:43 | XMS_ITS | Encounter Summary ---
Author Organization [facility] Address [address] [place] [address]. [place] [address] Care Team Providers Care Cutter Inspector Name Role Phone Herson Rhodes MD Primary Care Provider [facility] e Encounter Details Date Type Department [...] Description 05/22/2024 1:00 PM CDT Virtual Visit [facility] Surgery Clinic and Bariatrics Care [address] [place] [phone] Dung Alva, PhD [employer] [address] [facility] 200 [place] [address] 06/12/2024 9:00 AM CDT Virtual Visit [facility] and Bariatrics Care [place] [address] [facility] 200 [place] [address] Dung Alva, PhD [employer] [address] [place] [address] 07/21/2024 1:00 PM DRAPERY HEMMER AUTOMATIC Virtual Visit [facility] and Bariatrics Care [place] [address] [facility] 200 [place] [address] Hien Flood, RD [address] [facility] 200 [place] [address] documented as of this encounter Visit Diagnoses Not on filedocumented in this encounter Additional Health Concerns Assessment Noted Time PHQ-9 Depression Total Score: 2 05/07/20 21 11:37 AM CDT documented as of this encounter Care Teams Cutter Inspector Relationship Specialty Start Date End Date Herson Rhodes MD PCP - General 06/02/11 [facility] - [facility] [address] [place] [address] Assigned PCP 12/14/23 documented as of this encounter
--- OUTSIDE RECORDS SUMMARY | 2024-05-19 09:43 | XMS_ITS | Encounter Summary ---
Author Organization [place] Address [address] [place] [address]. [place] [address] Care Team Providers Care Dynamic Balancer Name Role Phone Herson Rhodes MD Primary Care Provider [facility] Encounter Details Date Type Department Care Team (Late st Contact Info) Description 05/01/2024 Medical Correspondence [facility] Health Information Management [address] [facility] [address] [place] [address] Scan, Non-Provider Social History Tobacco Use Types [...] Description 05/22/2024 1:00 PM CDT Virtual Visit [facility] Surgery Clinic and Bariatrics Care [place] [address] [facility] [address] [place] [address] Dung Alva, PhD RONNA AND [employer] [facility] [address] [place] [address] 06/12/2024 9:00 AM CDT Virtual Visit [facility] Surgery Clinic and Bariatrics Care [place] [address] [facility] 200 [place] [address] Dung Alva, PhD [employer] [address] [facility] [place] [address] 07/21/2024 1:00 PM COMPARISON SHOPPER Virtual Visit [facility] Surgery [facility] and Bariatrics Care [place] [address] [facility] 200 [place] [phone] Hien Flood, RD [address] [facility] 200 [place], [place] [phone] documented as of this encounter Visit Diagnoses Not on filedocumented in this encounter Additional Health Concerns Assessment Noted Time PHQ-9 Depression Total Score: 2 05/07/20 21 11:37 AM CDT documented as of this encounter Care Teams Dynamic Balancer Relationship Specialty Start Date End Date Herson Rhodes MD PCP - General 06/02/11 Clinic - [facility] [address] [place] [address] Assigned PCP 12/14/23 documented as of this encounter
--- OUTSIDE RECORDS SUMMARY | 2024-05-19 09:43 | XMS_ITS | Encounter Summary ---
Author Organization [facility] Address [address] [place] [address]. [place] [address] Care Team Providers Care Saw Runner Name Role Phone Herson Rhodes MD Primary Care Provider [phone] [facility] Encounter Details Date Type Department Care [...] Description 05/22/2024 1:00 PM CDT Virtual Visit [facility] [address] [place] [phone] Dung Alva, PhD [employer] [address] [facility] [address] [place] [address] 06/12/2024 9:00 AM CDT Virtual Visit [facility] and [facility] Care [place] [address] [facility] 200 [place] [phone] Dung Alva, PhD [employer] [address] [place] [address] 07/21/2024 1:00 PM ASSISTANT CLINICAL DIRECTOR Virtual Visit [facility] and [facility] [place] [address] [facility] 200 [place] [phone] Hien Flood, RD [address] [facility] 200 [place] [address] documented as of this encounter Visit Diagnoses Not on filedocumented in this encounter Additional Health Concerns Assessment Noted Time PHQ-9 Depression Total Score: 2 05/07/20 21 11:37 AM CDT documented as of this encounter Care Teams Saw Runner Relationship Specialty Start Date End Date Herson Rhodes MD PCP - General 06/02/11 Clinic - [facility] [address] [place] [address] Assigned PCP 12/14/23 documented as of this encounter
--- OUTSIDE RECORDS SUMMARY | 2024-05-19 09:43 | XMS_ITS | Encounter Summary ---
Author Organization [facility] Address [address] [place] [address]. [place] [address] Care Team Providers Care Egg Worker Name Role Phone Herson Rhodes MD Primary Care Provider [phone] [facility] Encounter Details Date Type [...] Description 05/22/2024 1:00 PM CDT Virtual Visit [facility] Care [address] [place] [phone] Dung Alva, PhD [employer] AND [employer] [address] [facility] 200 [place] [address] 06/12/2024 9:00 AM CDT Virtual Visit [facility] and [facility]ariat[facility] Care [place] [address] [facility] 200 [place] [phone] Dung Alva, PhD [employer] [address] [place] [address] 07/21/2024 1:00 PM MEDICAL CENTER DIRECTOR Virtual Visit [facility] Care [place] [address] [facility] 200 [place] [phone] Hien Flood, RD [address]45 [facility] 200 [place] [address] documented as of this encounter Visit Diagnoses Not on filedocumented in this encounter Additional Health Concerns Assessment Noted Time PHQ-9 Depression Total Score: 2 05/07/20 21 11:37 AM CDT documented as of this encounter Care Teams Egg Worker Relationship Specialty Start Date End Date Herson Rhodes MD PCP - General 06/02/11 Clinic - [facility] [address] [place] [address] Assigned PCP 12/14/23 documented as of this encounter
--- OUTSIDE RECORDS SUMMARY | 2024-05-19 09:43 | XMS_ITS | Encounter Summary ---
Author Organization [facility] Address [address] [place] [address]. [place] [address] Care Team Providers Care Material Reprocessing Associate Name Role Phone Herson Rhodes MD Primary Care Provider [facility] e Reason for Visit * Reason Comments Stenosis * Consultation (Routine) - Pending Review Specialty Diagnoses / Procedures Referred By Abdirizak trimble Referred To Contact Surgery Diagnoses Duodenal stenosis Kashif Su MD [facility] [address] [place] [address] Referral ID Status Reason Start Date Expiration Date V isits Requested Visits Authorized [id number] Pending Review 05/02/2024 05/02/2025 1 1 Encounter Details Date Type Department Care Team (Late st Contact Info) Description 05/09/2024 1:45 PM CDT Office Visit [facility] and Bariatrics Care [place] [address] [place] [address] [address] [place] [phone] Kashif Su MD [facility] [address] [place], [place] [phone] Ed Saenz MD [address] [place] [address] [address] [place], [place] [phone] Class 3 severe obesity due to excess [...] Iyer, Thank you for your interest in [facility]'s Bariatric Surgery Program. Before your first consultation, [...] 7:00 am until 5:00 pm by calling [phone]. documented in this encounter Progress Notes * Ed Saenz MD - 05/09/2024 1:45 PM CDT HPI: Soifa Iyer is a 43 year old female [...] last upper endoscopy the impression from her electric motor repairer was that this is not going to [...] GASTRIC BIOPSIES; Surgeon: Kashif Su MD; [facility] P[facility]FITTER SURGERY exc endometrial cysts HYSTERECTOMY, PAP STILL INDICATED until 2025 HYSTEROSCOPY DIAGNOSTIC 01/08/2014 Procedure: HYSTEROSCOPY DIAGNOSTIC; Surgeon: Alan Shah MD; Location: [facility] HYSTEROSCOPY DIAGNOSTIC N/A 02/12/2015 Procedure: HYSTEROSCOPY DIAGNOSTIC; Surgeon: Alan Shah MD; Location: [facility] INSERT STIMULATOR DORSAL COLUMN INSERT STIMULATOR DORSAL [...] HYSTERECTOMY VAGINAL; Surgeon: Alan Shah MD; Location: [facility] LAPAROSCOPIC OOPHORECTOMY Left 04/11/2019 Procedure: Laparoscopic oophorectomy; Surgeon: Alan Shah MD; Location: OR LAPAROSCOPIC SALPINGECTOMY 12/19/2015 Procedure: LAPAROSCOPIC SALPINGECTOMY; Surgeon: Alan Shah MD; Location: [facility] LASER CO2 LAPAROSCOPIC VAPORIZATION ENDOMETRIUM N/A 02/12/2015 Procedure: LASER CO2 LAPAROSCOPIC VAPORIZATION ENDOMETRIUM; Surgeon: Alan Shah MD; Location: [facility] LASER CO2 LAPAROSCOPIC VAPORIZATION ENDOMETRIUM N/A 12/19/2015 Procedure: LASER CO2 LAPAROSCOPIC VAPORIZATION ENDOMETRIUM; Surgeon: Alan Shah MD; Location: [facility] LASER CO2 LAPAROSCOPY DIAGNOSTIC, LYSIS ADHESIONS, COMBINED 01/08/2014 Procedure: COMBINED LASER CO2 LAPAROSCOPY DIAGNOSTIC, LYSIS ADHESIONS; Surgeon: Alan Shah MD; Location: [facility] LASER CO2 LAPAROSCOPY DIAGNOSTIC, LYSIS ADHESIONS, COMBINED N/A 04/11/2019 Procedure: LAPAROSCOPY, USING CO2 LASER ([employer] TECH); Surgeon: Alan Shah MD; Location: OR [...] MD fluticasone (FLONASE) 50 MCG/ACT nasal spray [place] 2 sprays into both nostrils daily Reported, [...] Patient Social Connections: Unknown (10/29/2021) Received from [employer], [employer] Social Connections Frequency of Communication with Friends [...] weight management program. Ed Saenz MD ,MD [facility] Department of Surgery documented in this encounter Plan of Treatment Upcoming Encounters Date Type Department Care Team (Late st Contact Info) Description 05/22/2024 1:00 PM CDT Virtual Visit [facility] Surgery [facility] and Bariatrics Care [address] [place] [address] Dung Alva, PhD [employer] [address] [place] [address] 06/12/2024 9:00 AM CDT Virtual Visit [facility] and Bariatrics Care [address] 200 [place] [address] Dung Alva, PhD [employer] [address] [place] [address] 07/21/2024 1:00 PM ELECTRICITY TRADER Virtual Visit [facility] Surgery [facility] and Bariatrics Care [address] [place] [address] [place] [address] [place] [address] documented as of this encounter Visit Diagnoses [...] documented as of this encounter Care Teams Material Reprocessing Associate Relationship Specialty Start Date End Date Herson Rhodes MD PCP - General 06/02/11 Clinic - [facility] [address] [place] [address] Assigned PCP 12/14/23 documented as of this encounter
--- OUTSIDE RECORDS SUMMARY | 2024-05-19 09:43 | XMS_ITS | Encounter Summary ---
Author Organization [facility] Address [address] [place] [address]. [place] [address] Care Team Providers Care Molecular Biology Director Name Role Phone Herson Rhodes MD Primary Care Provider [facility] Un[facility] e Reason for Referral * Consultation (Routine) - Pending Review Specialty Diagnoses / Procedures Referred By Abdirizak trimble Referred To Contact Surgery Diagnoses Duodenal stenosis Kashif Su MD [place] [facility] [address] [place] [address] [address] [place] [address] Referral ID Status Reason Start Date Expiration Date V isits Requested Visits Authorized [id number] Pending Review 05/02/2024 05/02/20[address] Saenz Question Answer Reason for Referral: Intestinal Intestinal Reason: Other My Clinical Question Is: duodenal stenosis Preferred Location: [facility] Gen Surg Scheduling Instructions: [facility] will call you to coordinate your care as prescribed by your provider. If you don't hear from a sales representatives within 2 business days, please call , option 2. Comments Please be aware that coverage of these services is subject to the terms and limitations of your health insurance plan. Call member services at your health plan with any benefit or coverage questions. [facility] will call you to coordinate your care as prescribed by your provider. If you don't hear from a sales representatives within 2 business days, please call , option 2. Encounter Details Date Type Department Care Team (Late st Contact Info) Description 05/02/2024 Transcribe Orders GENERIC EXTERNAL DATA DEPARTMENT Go, Kashif Wiley MD [place] [facility] [address] [place] [address] Duodenal stenosis (Primary Dx) Social History Tobacco [...] Description 05/22/2024 1:00 PM CDT Virtual Visit [facility] [address] [phone] Dung Alva, PhD [employer] [address] [place] [address] 06/12/2024 9:00 AM CDT Virtual Visit [facility] [address] [address] Dung Alva, PhD [employer] [address] [place] [address] 07/21/2024 1:00 PM INDUSTRIAL ILLUMINATING ENGINEER Virtual Visit [facility] and Bariatrics Care [address] [place] [address] Aleena Hien, RD [address] [facility] 200 [place] [address] Scheduled Referrals Name Type Priority Associated Diagnoses Orde r Schedule Adult Gen Surg Prevention Coordinator Referral Referral Routine Duodenal stenosis Expected: 05/02/2024 (Approximate), Expires: 05/02/2025 documented as of this encounter Visit Diagnoses Diagnosis Duodenal stenosis- Primary Other obstruction of duodenum documented in this encounter Additional Health Concerns Assessment Noted Time PHQ-9 Depression Total Score: 2 05/07/20 21 11:37 AM CDT documented as of this encounter Care Teams Molecular Biology Director Relationship Specialty Start Date End Date Herson Rhodes MD PCP - General 06/02/11 Clinic - [facility] [address] [place] [address] Assigned PCP 12/14/23 documented as of this encounter
--- NOTE | 2024-05-19 10:00 | CRLHL7_ITS ---
For Patients: As a result of the Century Cures Act, medical imaging exams and procedure reports are released immediately into your electronic medical record. You may view this report before your referring provider. If you have questions, please contact your health care provider. Indication: Sinusitis. Headaches. Technique: Noncontrast axial CT of the paranasal sinuses with coronal reformats are provided. No comparisons. Findings: The visualized paranasal sinuses are clear. The ostiomeatal complexes are patent bilaterally. The visualized intraorbital contents appear within normal limits. Impression: Unremarkable CT of the paranasal sinuses. Please note that all CT scans at this facility use dose modulation, iterative reconstruction, and/or weight-based dosing when appropriate to reduce radiation dose to as low as reasonably achievable. Dictated by Bright Murray MD @ 05/20/2024 9:08:54 AM (Electronically Signed)
== END 2024-05-19 09:40 | disposition home or self-care (01) ==
LOC: CT 09:39
PROVIDERS: PCP Family Medicine; Visit Provider Otolaryngology
DX: J32.9 Chronic sinusitis, unspecified (principal); R51.9 Headache, unspecified
CPT/HCPCS: 70486

== ENCOUNTER 2024-07-31 09:30 | Outpatient (CLI) | payer OTHER, SELFPAY ==
--- OUTSIDE RECORDS SUMMARY | 2024-07-31 09:35 | XMS_ITS ---
Author Organization [facility] Address [address] [place] [address] Care Team Providers Care Statistical Methods Professor Name Role Phone None, No PCP Primary Care Provider Adenike Spain Unavailable [phone] Allergies Allergen (clinical drug ingredient) Drug/Non Drug Allergy documented on EMR Reaction Allergy Type Onset Date Status promethazine Phenergan Unknown Drug Allergy Acti ve Compazine Unknown Drug Allergy Active REASON FOR VISIT HRT 6mo f/u, LMP: hysterectomy, BC: hysterectomy, Concerns: geriatric surgery on aug 07, stopped Estradiol, NG, MA Medications Medication SIG (Take, Route, Frequency, Duration) Notes Start Date End Date Status DULoxetine HCl 60 mg Activ e Escitalopram Oxalate 20 mg Active Celecoxib 200 mg Active clonazePAM 1 mg Active Baclofen 20 mg Active Vivelle Transdermal Estradiol 0.5 MGS/24 hours Not-Taking Estrace 0.1 MG/GM as directed Vaginal three times a week for 90 days 06/19/2024 Active Estradiol 0.05 MG/24HR APPLY 1 PATCH TO SKIN TOPICALLY 2 TIMES PER WEEK for 28 Active Fluticasone Propionate HFA Active Mounjaro 5 MG/0.5ML as directed Subcutaneous Active Omeprazole 40 Active Metoprolol Succinate 100 mg Active Topiramate 100 Active Estradiol 0.05 MG/24HR APPLY 1 PATCH TO SKIN TRANSDERMAL TWO TIMES A WEEK 30 DAYS for 28 Active traMADol HCl 100 Active OLANZapine 5 mg Active Social History Tobacco Use: Social [...] Problem Status W/U Status Risk Notes Problem [id number] Obesity, morbid, BMI 50 or higher (E66.01) Active confirmed Vital Signs Blood pressure systolic 126 mm Hg 07/27/20 24 Blood pressure diastolic 80 mm Hg 024 Height 64.50 in 07/27/2024 Weight 298.0 lbs 07/27/2024 BMI 50.36 kg/m2 07/27/2024 Encounters Encounter Location Date Provider Diagnosis [facility] [address] [place] [address] 07/27/2024 Adenike Hatfield Hormone replacement therapy (HRT) Z79.890 ; Obesity, morbid, BMI 50 or higher E66.01 and Prediabetes R73.03 Assessments Encounter Date Diagnosis (ICD Code) Assessment Notes Treatment Notes Treatment Clinical Notes Section Notes 07/27/2024 Hormone replacement therapy (HRT) (ICD-10 - Z79.890) THe patient has suspended her HRT for 30 days per her surgeon's recommendation. It was explained to her that she may get Hot Flashes or night sweats. I also would not do any level on her since she had a hysterectomy and bilateral salpingo oophorectomy for Endometriosis. She would take simple measures. Also, the weather is cold now which would help. She was instructed to follow up in three months and to do an FSH and Estradiol prior to her visit All of her questions were addressed 07/27/2024 Obesity, morbid, BMI 50 or higher (ICD-10 - E66.01) Patient has Bariatric surgery scheduled for later this month. 07/27/2024 Prediabetes (ICD-10 - R73.03) The patient is on Mounjaro for her Prediabetes 07/27/2024 Other Time spent on patient care including - review of previous records - preparation for visit - ordering medications, labs or imaging - documenting visit - discussion of care with another health lawn care worker if indicated - direct face to face [...] portion of the note Plan Of Treatment Treatment Notes Assessment Notes Hormone replacement therapy (HRT) THe patient has suspended her HRT for 30 days per her surgeon's recommendation. It was explained to her that she may get Hot Flashes or night sweats. I also would not do any level on her since she had a hysterectomy and bilateral salpingo oophorectomy for Endometriosis. She would take simple measures. Also, the weather is cold now which would help. She was instructed to follow up in three months and to do an FSH and Estradiol prior to her visit All of her questions were addressed Obesity, morbid, BMI 50 or higher Jay Jay trimble has Bariatric surgery scheduled for later this month. Prediabetes The patient is on Mo unjaro for her Prediabetes Other Time spent on patient care including - review of previous records - preparation for visit - ordering medications, labs or imaging - documenting visit - discussion of care with another health lawn care worker if indicated - direct face to face [...] in the treatment portion of the note Next Appt Details Follow Up: 3 Months,shawandan, [place] son: Provider Name:Adenike Tolentino meghan, 10/31/2024 10:15:00 AM, [address] [place], [address], Provider Name:Adenike christianson, 11/09/2024 10:00:00 AM, [address] [place], [address], Progress Notes * Rylee GARCIAAnelB:[birth year] (43 yo F)Acc No.[id number]:07/27/2024 Patient: Sofia ELLIOTT Provider: Cira Hatfield MD :1980 A ge:43 Y S ex:Female Date:07/27/2024 Address: [facility] Pcp:No PCP None Subjective: * Chief Complaints: * H RT 6mo f/uLMP: hysterectomyBC: hysterectomyConcerns: geriatric surgery on aug 07, stopped MELY Castillo * HPI: * General: This 43-year-old patient is here today. She is having Gastric By-Pass surgery on 08/07/24 and has stopped the Hormones temporarily. She would restart them 30 days post surgery Last Mammogram: 05/02/24. * ROS: R cassidy of systems positive for morbid obesity and HPI. * Medical History: * Band Straightener History: D ate of Last Period: H ysterectomy. B irth Control: H ysterectomy. S exual Activity C urrently sexually active. S exually Tranmitted Disease (STD) N one. A bnormal Pap Smear N ever Had One. * OB History: G PAL: G 0. * Surgical History: s forrest cord stimulator upper endoscopy total hysterectomy ovarian cysts removed D and C * Hospitalization/Major Diagno stic Procedure: p sych 01/21/2023 * Family History: F ather: diagnosed with Hypertension. * Social History: T obacco Use: T obacco Use/Smoking A re you a n onsmoker D rugs/Alcohol: D rugs H ave you used drugs other than those for medical reasons in the past 12 months? N o Alcohol Screen (Audit-C) D id you have a drink containing alcohol in the past year? N o P oints 0 I nterpretation N egative Caffeine I ntake: 1 -2 cups per day * Medications: T akingEstradiol 0.05 MG/24HR Patch Twice Weekly APPLY 1 PATCH TO SKIN TOPICALLY 2 TIMES PER WEEK Mounjaro 5 MG/0.5ML Solution Auto-injector as directed Subcutaneous Fluticasone Propionate HFA Escitalopram Oxalate , Notes to Pharmacist: 20 mgDULoxetine HCl , Notes to Pharmacist: 60 mgclonazePAM , Notes to Pharmacist: 1 mgCelecoxib , Notes to Pharmacist: 200 mgBaclofen , Notes to Pharmacist: 20 mgOLANZapine , Notes to Pharmacist: 5 mgMetoprolol Succinate , Notes to Pharmacist: 100 mgOmeprazole , Notes to Pharmacist: 40Topiramate , Notes to Pharmacist: 100traMADol HCl , Notes to Pharmacist: 100Estradiol 0.05 MG/24HR Patch Twice Weekly APPLY 1 PATCH TO SKIN TRANSDERMAL TWO TIMES A WEEK 30 DAYS Estrace 0.1 MG/GM Cream as directed Vaginal three times a week Taking Estradiol 0.05 MG/24HR Patch Twice Weekly APPLY 1 PATCH TO SKIN TOPICALLY 2 TIMES PER WEEK Taking Mounjaro 5 MG/0.5ML Solution Auto-injector as directed Subcutaneous Taking Fluticasone Propionate HFA Taking Escitalopram Oxalate , Notes to Pharmacist: 20 mgTaking DULoxetine HCl , Notes to Pharmacist: 60 mgTaking clonazePAM , Notes to Pharmacist: 1 mgTaking Celecoxib , Notes to Pharmacist: 200 mgTaking Baclofen , Notes to Pharmacist: 20 mgTaking OLANZapine , Notes to Pharmacist: 5 mgTaking Metoprolol Succinate , Notes to Pharmacist: 100 mgTaking Omeprazole , Notes to Pharmacist: 40Taking Topiramate , Notes to Pharmacist: 100Taking traMADol HCl , Notes to Pharmacist: 100Taking Estradiol 0.05 MG/24HR Patch Twice Weekly APPLY 1 PATCH TO SKIN TRANSDERMAL TWO TIMES A WEEK 30 DAYS Taking Estrace 0.1 MG/GM Cream as directed Vaginal three times a week Not-TakingVivelle , Notes to Pharmacist: Transdermal Estradiol 0.5 MGS/24 hoursMedication List reviewed and reconciled with the patientNot-Taking Vivelle , Notes to Pharmacist: Transdermal Estradiol 0.5 MGS/24 hoursMedication List reviewed and reconciled with the patient * Allergies: C ompazinePhenerganno[Allergies Verified] Objective: * Vitals: H t: 64.50 in, Wt:298.0lbs, BP:126/80mm Hg, BMI:50.36Index. * Examination: * General Examination: GENERAL APPEARANCE: P leasant, in no acute distress, alert, obese, female. Assessment: * Assessment: 1. O besity, morbid, BMI 50 or higher - E66.01 2 . H ormone replacement therapy (HRT) - Z79.890 (Primary) 3 . P rediabetes - R73.03 Plan: * Treatment: 2. O besity, morbid, BMI 50 or higher Notes: Patient has Bariatric surgery scheduled for later this month. 3. P rediabetes Notes: The patient is on Mounjaro for her Prediabetes 4. O thers Notes: Time spent on patient care including - review of previous records - preparation for visit - ordering medications, labs or imaging - documenting visit - discussion of care with another health lawn care worker if indicated - direct face to face [...] in the treatment portion of the note * Procedure Codes: * Preventive Medicine: YOUR PREVENTIVE WELLNESS PLAN: B reast Cancer Screening (Mammogram): My last mammogram was done on: 0 08/23/2022 C ervical Cancer Screening (Pap Smear): My last Pap smear was done on: 1 NILM HPV-, Hysterectomy O steoporosis Screening (Bone Density Measurement): My last bone density was done on: U nder 65yr C olorectal Cancer Screening: Last Done Colonoscopy U nder 45yrs * Follow Up: 3 Months,prn * Images: Billing Information: * Visit Code: [id number] Office Visit, Est Pt., Level 3. * Procedure Codes: * T ROCK APPLICATOR Sign off status: Completed true * Provider: Cira Hatfield MD Date: 09/27/2023 Generated for Brooke jean-baptiste/Liana/Miryamsmitting on: 10/01/2023 09:35 AM SHEET ROCK APPLICATOR History and Physical Notes * HPI (History of Present Illness) Category Sub-Category Detail Notes Category Not es *General This 43-year-old patient is here today. She is having Gastric By-Pass surgery on 08/07/24 and has stopped the Hormones temporarily. She would restart them 30 days post surgery Last Mammogram: 05/02/24 Examination Category Sub-Category Detail Notes Category Not es *General Examination GENERAL APPEARANCE: Pleasan t, in no acute distress, alert, obese, female
--- OUTSIDE RECORDS SUMMARY | 2024-07-31 09:35 | XMS_ITS ---
Author Organization [facility] Address [address] [address] Care Team Providers Care Drafter Name Role Phone None, No PCP Primary Care Provider Adenike Spain Unavailable [phone] Valeria Mario Unavailable Results Component Value Reference Range Notes THINPREP TIS AND HPV mRNA E6 /E7 (30 yrs and over) Reviewed date:06/22/2024 02:51:29 PM Interpretation: Performing Lab:[facility] Herb Mckee Notes/Report: CLINICAL INFORMATION: None g iven LMP: NONE GIVEN PREV. PAP: 02/10/2023 PREV. BX: NONE GIVEN SOURCE: Cervix, Endocer vix STATEMENT OF ADEQUACY: Satisfactory for evaluation. Endocervical/transformation zone component absent. Age and/or menstrual status not provided INTERPRETATION/RESULT: Cytology Results: Negative for intraepithelial lesion or malignancy. COMMENT: This Pap test has been evaluated with computer assisted technology. MOTORS AND CONTROLS TESTER: RENÉ HEARN(ASCP) CT Screening location: [place] [id number] COMMENT EXPLANATORY NOTE: The Pap is a [...] mRNA E6/E7 Not Detected Not Detected Methodology: Harvesting Supervisor-Mediated Amplification This assay detects E6/E7 viral messenger RNA (mRNA) from 14 high-risk HPV types (16,18,31,33,35,39,45,51,52,5 6,58,59,66,68). Cervical sources are required for HPV testing. If a vaginal source from a patient who has had a total hysterectomy with removal of cervix was submitted, please contact the testing laboratory for alternative testing options. For additional information, please refer to http://education.[employer]/faq/IFK711o4 (This link if provided for information/ educational purposes only.) REASON FOR VISIT Pap Medications Medication SIG (Take, Route, Frequency, Duration) Notes Start Date End Date Status Estradiol 0.05 MG/24HR APPLY 1 PATCH TO SKIN TRANSDERMAL TWO TIMES A WEEK 30 DAYS for 28 Active traMADol HCl 100 Active Estrace 0.1 MG/GM as directed Vaginal three times a week for 90 days 06/19/2024 Active Vivelle Transdermal Estradiol 0.5 MGS/24 hours Not-Taking Topiramate 100 Active Metoprolol Succinate 100 mg Active Celecoxib 200 mg Active OLANZapine 5 mg Active Baclofen 20 mg Active Omeprazole 40 Active clonazePAM 1 mg Active Fluticasone Propionate HFA Active Mounjaro 5 MG/0.5ML as directed Subcutaneous Active DULoxetine HCl 60 mg Activ e Escitalopram Oxalate 20 mg Active Estradiol 0.05 MG/24HR APPLY 1 PATCH TO SKIN TOPICALLY 2 TIMES PER WEEK for 28 Active Encounters Encounter Location Date Provider Diagnosis [address] [address] 06/19/2024 Valeria Mccann Encounter for well woman exam Z01.419 and Encounter for screening for human papillomavirus (HPV) Z11.51 Assessments Encounter Date Diagnosis (ICD Code) Assessment Notes Treatment Notes Treatment Clinical Notes Section Notes 06/19/2024 Encounter for well woman exam (ICD-10 - Z01.419) 06/19/2024 Encounter for screening for human papillomavirus (HPV) (ICD-10 - Z11.51) Plan Of Treatment Next Appt Details Provider Name:Adenike christianson, 10/31/2024 10:15:00 AM, [address] [facility], [place], [address], Provider Name:Adenike christianson, 11/09/2024 10:00:00 AM, [address] [place], [address], Progress Notes * Dillan GARCIAB:[birth year] (43 yo F)Acc No.[id number]:06/19/2024 Patient: Sofia ELLIOTT Provider: Juan Diego Mccann MD :1980 A ge:43 Y S ex:Female Date:06/19/2024 [facility] Pcp:No PCP None Subjective: * Chief Complaints: * 1 . Pap. * Medical History: * Medications: T aking Estradiol 0.05 MG/24HR Patch Twice Weekly APPLY 1 PATCH TO SKIN TOPICALLY 2 TIMES PER WEEK , Taking Mounjaro 5 MG/0.5ML Solution Auto-injector as directed Subcutaneous , Taking Fluticasone Propionate HFA , Taking Escitalopram Oxalate , Notes to Pharmacist: 20 mg, Taking DULoxetine HCl , Notes to Pharmacist: 60 mg, Taking clonazePAM , Notes to Pharmacist: 1 mg, Taking Celecoxib , Notes to Pharmacist: 200 mg, Taking Baclofen , Notes to Pharmacist: 20 mg, Taking OLANZapine , Notes to Pharmacist: 5 mg, Taking Metoprolol Succinate , Notes to Pharmacist: 100 mg, Taking Omeprazole , Notes to Pharmacist: 40, Taking Topiramate , Notes to Pharmacist: 100, Taking traMADol HCl , Notes to Pharmacist: 100, Taking Estradiol 0.05 MG/24HR Patch Twice Weekly APPLY 1 PATCH TO SKIN TRANSDERMAL TWO TIMES A WEEK 30 DAYS , Taking Estrace 0.1 MG/GM Cream as directed Vaginal three times a week , Not- Taking Vivelle , Notes to Pharmacist: Transdermal Estradiol 0.5 MGS/24 hours Objective: * Vitals: Assessment: * Assessment: 1. E ncounter for screening for human papillomavirus (HPV) - Z11.51 2 . E ncounter for well woman exam - Z01.419 (Primary) Plan: * Treatment: Value Reference Range H PV mRNA E6/E7 Not Detected Not Detected - * Your pap smear was normal 2.?Encounter for screening for human papillomavirus (HPV)?LAB: THINPREP TIS AND HPV mRNA E6/E7 (30 yrs and over) (Collection Date & Time - 06/19/2024 11:25 AM)* Value Reference Range H PV mRNA E6/E7 Not Detected Not Detected - * Your pap smear was normal * Procedure Codes: 1 011 No Charge Visit * Images: Billing Information: * Visit Code: * Procedure Codes: 1011 No Charge Visit. * DEVELOPER Sign off status: Completed true * Provider: Juan Diego Mccann MD Date: 1 Generated for Brooke jean-baptiste/Liana/Miryamsmitting on: 1 10/01/2023 09:35 AM HTML DEVELOPER
--- OUTSIDE RECORDS SUMMARY | 2024-07-31 09:36 | XMS_ITS ---
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 Medications Medication SIG (Take, Route, Frequency, Duration) Notes Start Date End Date Status Estradiol 0.05 MG/24HR APPLY 1 PATCH TO SKIN TRANSDERMAL TWO TIMES A WEEK 30 DAYS for 28 Active Topiramate 100 Active traMADol HCl 100 Active Metoprolol Succinate 100 mg Active Omeprazole 40 Active DULoxetine HCl 60 mg Activ e clonazePAM 1 mg Active Celecoxib 200 mg Active Baclofen 20 mg Active OLANZapine 5 mg Active Escitalopram Oxalate 20 mg Active Vivelle Transdermal Estradiol 0.5 MGS/24 hours Not-Taking Mounjaro 5 MG/0.5ML as directed Subcutaneous Active Fluticasone Propionate HFA Active Estrace 0.1 MG/GM as directed Vaginal three times a week for 90 days 06/19/2024 Active Social History Tobacco Use: Social History Observation Description Date Details (start date - stop date) Never Smoker NA - NA Tobacco Use/Smoking Question Answer Notes Are you a nonsmoker Alcohol Screen (Audit-C) Question Answer Notes Did you have a drink containing alcohol in the p ast year? No Points 0 Interpretation Negative Vital Signs Blood pressure systolic 130 mm Hg 10/28/20 24 Blood pressure diastolic 88 mm Hg 024 Height 64.50 in 06/19/2024 Weight 302 lbs 06/19/2024 BMI 51.03 kg/m2 06/19/2024 Encounters Encounter Location Date Provider Diagnosis [facility] [address] [place] [address] 06/19/2024 Valeria Mccann Cervical cancer screening Z12.4 Assessments Encounter Date Diagnosis (ICD Code) Assessment Notes Treatment Notes Treatment Clinical Notes Section Notes 06/19/2024 Cervical cancer screening (ICD-10 - Z12.4) 06/19/2024 Other 1. Need to obtain hysterectomy pathology and previous pap smears 2. Discussed pap smear planning and pathology dictates pap smears. Owen wanted pap before surgery, obtained 3. She is off estrogen for surgery, sent cream for the vaginal dryness. Plan Of Treatment Medication Medication Name Sig Start Date Stop Date Notes Estrace 0.1 MG/GM as directed Vaginal three times a week for 90 days 06/19/2024 Treatment Notes Assessment Notes Other 1. Need to obtain hysterectomy pathology and previous pap smears 2. Discussed pap smear planning and pathology dictates pap smears. Owen wanted pap before surgery, obtained 3. She is off estrogen for surgery, sent cream for the vaginal dryness. Next Appt Details Provider Name:Adenike De Diosmera christianson, 10/31/2024 10:15:00 AM, [address] [place], [address], Provider Name:Adenike De Diosmera christianson, 11/09/2024 10:00:00 AM, [address] [place], [address], Progress Notes * Rylee GARCIAAnelB:[birth year] (43 yo F)Acc No.[id number]:06/19/2024 Progress Notes Patient: Sofia ELLIOTT Provider: Juan Diego Mccann MD :1980 A ge:43 Y S ex:Female Date:06/19/2024 Address:[address] [place], [place] [address] Pcp:No PCP None Subjective: * Chief Complaints: * 1 . Pap smear 02/10/23. 2. Concerns pt mite have wt loss surgery. 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 * HPI: * General: Patient presenting for pap smear, however, she has history of hysterectomy. She also had a pap smear 01/2023. She has history of abnormal pap smears. She has history of LEEP procedure as well. * Medical History: C hronic pain, Endometriosis, Anxiety/depression, Hx of migraines, Hypertension, Ulcers. 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 B irth Control: H ysterectomy. S exual Activity C urrently sexually active. S exually Tranmitted Disease (STD) N one. A bnormal Pap Smear N ever Had One. * OB History: G PAL: G 0. * Surgical History: s forrest cord stimulator , upper endoscopy , total hysterectomy , ovarian cysts removed , D and C . * Hospitalization/Major Diagno stic Procedure: p sych 01/21/2023. * Family History: F ather: diagnosed with [...] I ntake: 1 -2 cups per day M iscellaneous: E xercise: Patient exercises yoga daily with pilates 6x a month. Marital status: . * Medications: T aking Mounjaro 5 MG/0.5ML Solution Auto-injector as directed [...] TWO TIMES A WEEK 30 DAYS , Not-Taking Vivelle , Notes to Pharmacist: Transdermal Estradiol 0.5 MGS/24 hours, Medication List reviewed and reconciled with the patient * Allergies: C ompazine, Phenergan. Objective: * Vitals: H t: 64.50 in, Wt:302lbs, BP:130/88mm Hg, BMI:51.03Index. * Examination: * General Examination: GENERAL APPEARANCE: i n no acute distress, alert, well hydrated, in no distress. G YN: no lesions, no excoriations, some atrophy noted. Assessment: * Assessment: 1. C ervical cancer screening - Z12.4 (Primary) Plan: * Treatment: 2. O thers Notes: 1. Need to obtain hysterectomy pathology and previous pap smears 2. Discussed pap smear planning and pathology dictates pap smears. Owen wanted pap before surgery, obtained 3. She is off estrogen for surgery, sent cream for the vaginal dryness. * Preventive Medicine: YOUR PREVENTIVE WELLNESS PLAN: B reast Cancer Screening (Mammogram): My last mammogram was done on: 0 08/23/2022 C ervical Cancer Screening (Pap Smear): My last Pap smear was done on: H ysterectomy O steoporosis Screening (Bone Density Measurement): My last bone density was done on: U nder 65yr C olorectal Cancer Screening: Last Done Colonoscopy U nder 45yrs * Images: Billing Information: * Visit Code: 20233 Office Visit, Est Pt., Level 3. 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 She also had a pap smear 01/2023. She has history of abnormal pap smears. She has history of LEEP procedure as well. 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
--- OUTSIDE RECORDS SUMMARY | 2024-07-31 09:36 | XMS_ITS | Clinical Summary ---
Author Organization [place] Address [address] [place] [address] Care Team Providers Care Business Integration Manager Name Role Phone Herson Rhodes MD Primary Care Provider [facility] Unavailabl e Hien Flood RD Unavailable [phone] Dung Alva PhD Unavailable [phone] Aris Thurman MD Unavailable Miriam Melton APRN PCB DESIGN ENGINEER Unavailable [phone] Allergies Active Allergy Reactions Criticality Noted Date Comments Compazine 09/26/2009 Restless legs Levofloxacin 06/02/2017 Other reaction(s): GI Upset Promethazine-Dm 12/12/2012 Restless legs Medications baclofen (LIORESAL) 20 MG tablet Take 40 mg by mouth daily (Takes 2 x 20mg = 40mg) Active metoprolol succinate ER (TOPROL XL) 100 MG 24 hr tablet Take 100 mg by mouth daily Active topiramate (TOPAMAX) 100 MG tablet Take 100 mg by mouth 2 times daily Active fluticasone (FLONASE) 50 MCG/ACT nasal spray Reyno 2 sprays into both nostrils daily Active lamoTRIgine (LAMICTAL) 150 MG tablet [...] Take 20 mg by mouth daily. Active Tirzepatide (MOUNJARO) 7.5 MG/0.5ML SOAJIndication s:Morbid obesity with BMI of 45.0-49.9, adult (H),Pre-diabet es Inject 0.5 mLs (7.5 mg) subcutaneously every 7 days. 2 mL 06/29/20 24 Active cyanocobalamin (VITAMIN B-12) 1000 MCG sublingual tabletIndicati ons:Morbid obesity (H),S/P bariatric surgery,Intest inal malabsorption, unspecified type Place 1 tablet (1,000 mcg) under the tongue daily. Start right after surgery. 90 tablet 3 07/19/20 24 Active Pediatric Multivitamins- Iron (MULTIVITAMINS PLUS IRON CHILD) 18 MG CHEWIndication s:Morbid obesity (H),S/P bariatric surgery,Intest inal malabsorption, unspecified type Take 1 chew tab by mouth 2 times daily. Ok to substitute with any chewable that contains 18 mg of iron, Vitamin A, Thiamine and Zinc. 180 tablet 3 07/19/20 24 Active ursodiol (ACTIGALL) 300 MG capsuleIndicat ions:Morbid obesity (H),S/P bariatric surgery,Rapid weight loss Take 1 capsule (300 mg) by mouth 2 times daily. Start 2 weeks after surgery, do not open-take with warm liquid. Take twice a day for 6 months. 180 capsule 1 07/19/20 24 025 Active escitalopram (LEXAPRO) 10 MG tablet Take 10 mg by mouth daily 024 Discontinue d(Alternate therapy) traMADol HCl 100 MG TABS 100 mg 2 times daily 024 Discontinue d(Therapy completed (No AVS)) neomycin-polym ixin-dexametha sone (MAXITROL) ophthalmic ointment 024 Discontinue d(Therapy completed (No AVS)) Active Problems Problem Noted Date Diagnosed Date Obesity (BMI 35.0-39.9) with comorbidity 019 Vaginal Pap smear 09/27/2017 Overview (05/14/2021): 2005 LEEP- will need paps x 20 [...] Anxiety associated with depression 07/30/2010 Overweight 07/30/2010 Overview (05/24/2015): Problem list name updated by automated process. Provider to review Muscular deconditioning 07/30/2010 Degenerative arthritis of cervical spine 010 Spondylarthrosis 01/14/2010 Sacroiliac joint pain 01/14/2010 Chronic low back pain 01/14/2010 Encounters Date Type Department Care Team Description 07/19/2024 12:30 PM CHIEF HUMAN RESOURCES OFFICER Allied Health/Nurse Visit [facility] [address] [phone] Bariatric (Pre-op Class/); Pt Ed 07/19/2024 Travel 07/18/2024 Travel 07/18/2024 MyC Medical Advice [facility] [address] [place] [phone] [facility] MyC Medical Advice [facility] [address] [place] [phone] 37 Litzy Hall, RN 07/17/2024 MyC Medical Advice [facility] [address] [phone] [facility]24 Documentation Only [facility] [address] [place] [phone] [facility] 07/06/2024 Documentation Only [facility] [address] [phone] [facility] 07/05/2024 1:30 PM CHIEF HUMAN RESOURCES OFFICER Office Visit [facility] [address] [phone] Aris Thurman MD Morbid obesity with BMI of 45.0-49.9, adult (H) (Primary Dx); BLAISE (obstructive sleep apnea); Morbid obesity (H); Duodenal stricture 07/05/2024 Travel 07/04/2024 Travel 06/29/2024 11:00 AM CHIEF HUMAN RESOURCES OFFICER Lab [facility] [address] [place] [phone] History of tobacco use 06/29/2024 Travel 06/28/2024 9:30 AM CHIEF HUMAN RESOURCES OFFICER Virtual Visit [facility] [address] [phone] Dung Alva, PhD Morbid obesity (H) (Primary Dx) 06/28/2024 MyC Medical Advice [facility] [address] [phone] Litzy Hall, RN prep for surgery 06/27/2024 MyC Medical Advice [facility] [address] [place] [phone] Litzy Hall RN Morbid obesity with BMI of 45.0-49.9, adult (H) (Primary Dx); Pre-diabetes 06/26/2024 2:30 PM CHIEF HUMAN RESOURCES OFFICER Virtual Visit [facility] [address] [place] [phone] Morbid obesity with BMI of 45.0-49.9, adult (H) (Primary Dx); Pre-bariatric surgery nutrition evaluation 06/14/2024 MyC Medical Advice Initial Department [facility] 06/14/2024 MyC Medical Advice Initial Department [facility] 06/12/2024 9:00 AM CDT Virtual Visit [facility] [address] [phone] Dung Alva, PhD Morbid obesity (H) (Primary Dx) 06/09/2024 10:00 AM CDT Virtual Visit [facility]ariatrics [address] [phone] Morbid obesity with BMI of 45.0-49.9, adult (H) (Primary Dx); Pre-bariatric surgery nutrition evaluation 06/05/2024 11:00 AM CDT Virtual Visit [facility] [address] [phone] 1, Sh Wl Diet, RD Obesity (Primary Dx) 06/02/2024 Travel 06/02/2024 Telephone [facility] [address] [phone] Radha Brown 06/01/2024 MyC Medical Advice [facility] [address] [phone] Litzy Hall RN 05/22/2024 1:00 PM CDT Virtual Visit [facility] [address] [place] [phone] Dung Alva, PhD Morbid obesity (H) (Primary Dx) 05/18/2024 11:[address] [facility] [address] [place] [address] [address] [place] [phone] Healthcare maintenance; Morbid obesity (H); Pre-diabetes 05/18/2024 10:00 AM CDT Office Visit [facility] [address] [place] [phone] Miriam Melton APRN CNP Healthcare maintenance (Primary Dx); Morbid obesity (H); Pre-diabetes 05/18/2024 Travel 05/13/2024 Travel 05/09/2024 1:45 PM CDT Office Visit [facility] [address] [place] [phone] Kashif Su MD Fasen, Geoffrey, MD Class 3 severe obesity due to excess calories with serious comorbidity and body mass index (BMI) of 50.0 to 59.9 in adult (H) (Primary Dx); Duodenal stenosis 05/09/2024 Travel 05/04/2024 Travel 05/02/2024 Transcribe Orders GENERIC EXTERNAL DATA DEPARTMENT Kashif Su MD Duodenal stenosis (Primary Dx) 05/01/2024 Medical Correspondence [facility] [address] [facility] [address] [place] [address] Scan, Non-Provider from Last 3 Months Immunizations Name Administration Dates Next Due COVID-19 MONOVALENT 12+ (Pfizer) 06/12/2021,09/23,09/12/2020 DTAP (<7y) 06/04/2008 Flu, Unspecified 07/29/2015,06/04/2008 Hepatitis B, Adult 01/30/2002,05/17/2000, 000 Influenza (IIV3) PF 07/04/2012,05/18/2011,2007 Influenza (prior to 2023) 05/18/2011 Influenza Vaccine 18-64 (Flublok) 08/18/2019 Influenza Vaccine >6 months,quad, PF ,07/03/2022,07/10/2021,2019,08/18/2019,07/11/2018,04/27/2017,1 09/29/2014,06/19/2014,07/04/2012, 011,06/04/2008 Influenza Vaccine, 6+MO IM (QUADRIVALENT W/PRESERVATIVES) 07/29/2015 Influenza, Split Virus, Triv alent, Pf (Fluzone\Fluarix) 05/18/2011 MMR 12/19/1993 TDAP (Adacel,Boostrix) 04/07/2019,06/04/2008 Td [...] School Help Needed Not on file 06/09 Comments No Sex and Gender Information Value Date Recorded Sex Assigned at Female 04/04/2021 10:28 PM CDT Legal Sex Female 5:06 AM CHIEF HUMAN RESOURCES OFFICER Gender Identity Female 04/04/2021 10:28 PM CDT Sexual Orientation Straight 04/04/2021 10 :28 PM CDT Last Filed Vital Signs Vital Sign Reading Time Taken Comments Blood Pressure 120/86 07/05/2024 1:23 PM CHIEF HUMAN RESOURCES OFFICER Pulse 72 02/18/2023 1:10 PM CDT Temperature 36.8 C (98.2 F) 02/18/2023 1:10 PM CDT Respiratory Rate 14 02/18/2023 1:10 PM CDT Oxygen Saturation 99% 02/18/2023 1:10 PM CDT Inhaled Oxygen Concentration - - Weight 133.8 kg (295 lb) 07/19/2024 2:41 PM CHIEF HUMAN RESOURCES OFFICER Height 165.1 cm (5' 5) 07/19/2024 2:41 PM CHIEF HUMAN RESOURCES OFFICER Body Mass Index 49.09 07/19/2024 2:41 PM CHIEF HUMAN RESOURCES OFFICER Plan of Treatment Upcoming Encounters Date Type Department Care Team (Late st Contact Info) Description 08/07/2024 10:50 AM CHIEF HUMAN RESOURCES OFFICER Hospital Encounter [address] [phone] Aris Thurman MD [address] [place] [address] [address] [place] [address] 08/07/2024 10:50 AM CHIEF HUMAN RESOURCES OFFICER - 08/07/2024 1:40 PM CHIEF HUMAN RESOURCES OFFICER Surgery [address] [phone] Aris Thurman MD [address] [place] [address] CREATION, GASTRIC BYPASS, SRIDHAR-EN-Y, LAPAROSCOPIC 08/15/2024 1:00 PM CHIEF HUMAN RESOURCES OFFICER Virtual Visit [facility] [address] [place] [phone] 08/30/2024 12:30 PM CHIEF HUMAN RESOURCES OFFICER Virtual Visit [facility] [address] [place] [phone] Aris Thurman MD [address] [place] [address] [address] [place] [address] 09/08/2024 11:00 AM CHIEF HUMAN RESOURCES OFFICER Virtual Visit [facility] [address] [place] [phone] Betty Leonardo, RD [address] [facility] [address] [place] [address] 11/06/2024 9:30 AM CDT Virtual Visit [facility] [address] [place] [phone] Dung Alva, PhD [employer] [facility] [address] [facility] [address] 11/07/2024 9:30 AM CDT Virtual Visit [facility] [address] [place] [phone] [facility] [address] [place] [address] 02/08/2025 1:30 PM CDT Office Visit [facility] [address] [place] [phone] Miriam Melton, SOLAR PROJECT MANAGER PCB DESIGN ENGINEER [address] [address] 05/09/2025 9:30 AM CDT Virtual Visit [facility] [address] [place] [phone] [facility] [address] [place] [address] 08/09/2025 1:30 PM CHIEF HUMAN RESOURCES OFFICER Office Visit [facility] [address] [place] [phone] Miriam Melton, SOLAR PROJECT MANAGER PCB DESIGN ENGINEER [address] [address] Scheduled Procedures Name Priority Associated Diagnoses Date/Ti me CREATION, GASTRIC BYPASS, SRIDHAR-EN-Y, LAPAROSCOPIC Morbid obesity (H) Duodenal stricture 08/07/2024 10:50 AM CHIEF HUMAN RESOURCES OFFICER Health Maintenance Due Date Last Done Comments ADVANCE CARE PLANNING 1980 ANNUAL REVIEW OF HM ORDERS 1980 URINE DRUG SCREEN 1980 YEARLY PREVENTIVE VISIT 05/07/2022 05/07/20, 03/04/2020, 09/26/2018, Additional history exists COVID-19 Vaccine ( season) 2024 04/30/2022, 06/12/2021, 10/03/2020, Additional history exists INFLUENZA VACCINE (#1) 2024 , 07/03/2022, 07/10/2021, Additional history exists HPV TEST 05/07/2024 05/07/2021, 02/20, 09/26/2018, Additional history exists PAP 05/07/2024 05/07/2021, 02/20, 09/26/2018, Additional history exists MAMMO SCREENING 05/02/2026 05/02/2024, 04/24, 04/23/2023, Additional history exists GLUCOSE 05/18/2027 05/18/2024, 12/20/2015 [...] Type Associated Problems Recent Progress Patient-Stated? Author MYC ECC SURG ENROLL Care Plan MyC ECC SURG ENROLL No Lindsay Serrato [employer] Implanted Type Area Taxi Dancer Device Identifier Shelf Expiration Date Model / Serial / Lot Primeadvanced Surescan Mri Neurostimulator Implanted:Qty: 1 on 02/14/2014 by Aj Perkins MD at [facility] Left: Buttocks [employer] 03/19/2015 [id number] / [id number] H / Explanted Type Area Taxi Dancer Device Identifier Shelf Expiration Date Model / Serial / Lot Prime Advanced Neurostimulator Implanted:Qty: 1 on 03/16/2011 at [facility] Explanted:Qty: 1 on 02/14/2014 by Aj Perkins MD at [facility] Left: Buttocks [employer] 03/05/2012 [id number] / [id number] H / Description:Prime advanced M ulti program Neurostimulator [employer] Procedures Procedure Name Priority Date/Time Associated Diagnosis Comments NICOTINE AND METS, URN, QUANT Routine 06/29/2024 10:50 AM CHIEF HUMAN RESOURCES OFFICER History of tobacco use ZINC Routine 05/18/2024 11:25 AM CDT Healthcare maintenance Morbid obesity (H) Pre-diabetes VITAMIN B12 Routine 05/18/2024 11:25 AM CDT Healthcare maintenance Morbid obesity (H) Pre-diabetes VITAMIN B1 WHOLE BLOOD Routine 11:25 AM CDT Healthcare maintenance Morbid obesity (H) Pre-diabetes VITAMIN A Routine 05/18/2024 11:25 AM CDT Healthcare maintenance [...] CDT Healthcare maintenance Morbid obesity (H) Pre-diabetes 25 HYDROXYVITAMIN D2 & D3 Routine 05/18/2024 11:25 AM CDT Healthcare maintenance Morbid obesity (H) Pre-diabetes MAMMOGRAM - HIM SCAN 05/02/2024 12:00 AM CDT GYNECOLOGIC CYTOLOGY Routine 05/07/2021 11:50 AM CDT Encounter for gynecological examination without abnormal finding HPV HIGH RISK TYPES DNA CERVICAL Routine 05/07/2021 11:50 AM CDT Encounter for gynecological examination without abnormal finding HIV RAPID ANTIBODY SCREEN STAT 01/28/2010 12:27 PM CDT HEPATITIS C ANTIBODY STAT 01/28/2010 12:27 PM CDT from Last 3 Months or Most Recently Relevant to Health Maintenance Results * Nicotine and Mets, Urn, Quant (06/29/2024 10:50 AM CHIEF HUMAN RESOURCES OFFICER) Cotinine Confirm <15 ng/mL 07/02/20 9:09 PM CHIEF HUMAN RESOURCES OFFICER [facility] Nicotine Confirmation Urine <15 ng/mL 07/02/2024 9:09 PM CHIEF HUMAN RESOURCES OFFICER [facility] Comment: INTERPRETIVE INFORMATION: Nicotine and Metabolites, Urine, Quantitative Methodology: Quantitative Liquid Chromatography-Tandem Mass Spectrometry Positive cutoff: Nicotine 15 ng/mL Cotinine 15 ng/mL 1-TD-Deeailju 50 ng/mL Anabasine 5 ng/mL For medical purposes only; not valid for forensic use. This test is designed to evaluate recent use of nicotine-containing products. Passive and active exposure cannot be discriminated definitively, although a cutoff of 100 ng/mL cotinine is frequently used for surgery qualification purposes. For smoking cessation programs or compliance testing, the absence of expected drug(s) and/or drug metabolite(s) may indicate non-compliance, inappropriate timing of specimen collection relative to drug administration, poor drug absorption, diluted/adulterated urine, or limitations of testing. The concentration value must be greater than or equal to the cutoff to be reported as positive. Anabasine is included as a biomarker of tobacco use, versus nicotine replacement. Interpretive questions should be directed to the laboratory. This test was developed and its performance characteristics determined by [facility]. It has not been cleared or approved by the US Food and Drug Administration. This test was performed in a CLIA certified laboratory and is intended for clinical purposes. Performed By: [facility] [address] [place] [address] Workday Manager: Ceasar Romero MD, PhD CLIA Number: [id number] 1-GL-Ujkouiyx, Urn, Quant <50 ng/mL 07/02/2024 9:09 PM CHIEF HUMAN RESOURCES OFFICER [facility] Anabasine, Urn, Quant <5 ng/mL 07/02/2024 9:09 PM CHIEF HUMAN RESOURCES OFFICER [facility] Urine URINE SPECIMEN OBTAINED BY CLEAN CATCH PROCEDURE / Unknown Non-blood Collection / Unknown 06/29/2024 10:50 AM CHIEF HUMAN RESOURCES OFFICER 06/29/2024 10:51 AM CHIEF HUMAN RESOURCES OFFICER Miriam Melton APRN [facility] - URINE ORDERABL ES Final Result Performing Organization Address [facility]/ZIP Co de Phone Number [address] [phone] [phone] * Zinc (05/18/2024 11:25 AM CDT) Zinc, Serum/Plasma 74.3 60.0 - 120.0 ug/dL 05/19/2024 10:35 PM CDT [facility] Comment: INTERPRETIVE INFORMATION: Zinc, Serum or Plasma Elevated results may be due to skin or collection-related contamination, including the use of a noncertified metal-free collection/transport tube. If contamination concerns exist due to elevated levels of serum/plasma zinc, confirmation with a second specimen collected in a certified metal-free tube is recommended. Circulating zinc concentrations are dependent on albumin status and are depressed with malnutrition. Zinc may also be lowered with infection, inflammation, stress, oral contraceptives, and . Zinc may be elevated with zinc supplementation or fasting. Elevated zinc concentrations may interfere with copper absorption. This test was developed and its performance characteristics determined by [facility]. It has not been cleared or approved by the US Food and Drug Administration. This test was performed in a CLIA certified laboratory and is intended for clinical purposes. Performed By: [facility] [address] [place] [address] Workday Manager: Ceasar Romero MD, PhD CLIA Number: [id number] Blood BLOOD SPECIMEN / Unknown Venipuncture / Unknown 05/18/2024 11:25 AM CDT 05/18/2024 11:25 AM CDT Miriam Melton APRN [facility] - BLOOD ORDERABL ES Final Result Performing Organization Address City/[facility]/ZIP Co de Phone Number [facility] [employer] [address] [place] [phone] [phone] * 25 Hydroxyvitamin D2 and D3 (05/18/2024 11:25 AM CDT) 25 [place] Vitamin D2 <5 ug/L 05/22/20 10:38 AM CDT [facility] 25 [place] Vitamin D3 39 ug/L 05/22/20 10:38 AM CDT [facility] 25 OH Vit D Total <44 20 - 75 ug/L 05/22/2024 10:38 AM CDT [facility] Comment:Season, race, dietar y intake, and treatment affect the concentration of 79-guqkwvx-Vqemeze D. Values may decrease during winter months and increase during summer months. Values 20-29 ug/L may indicate Vitamin D insufficiency and values <20 ug/L may indicate Vitamin D deficiency. Blood BLOOD SPECIMEN / Unknown Venipuncture / Unknown 05/18/2024 11:25 AM CDT 05/18/2024 11:25 AM CDT Narrative [facility] - 05/22/2024 10:38 AM CDT This test was developed and its performance characteristics determined by the [facility], [facility]. It has not been cleared or approved by the FDA. The laboratory is regulated under CLIA as qualified to perform high-complexity testing. This test is used for clinical purposes. It should not be regarded as investigational or for research. Miriam Melton APRN [facility] - BLOOD ORDERABL ES Final Result [facility] [address] [facility], [address] [place] [phone] * Vitamin B1 whole blood (05/18/2024 11:25 AM CDT) [facility] Vitamin B1 Whole Blood Level 117 70 - 180 nmol/L 05/22/2024 6:49 AM CDT [facility] Comment: INTERPRETIVE INFORMATION: Vitamin B1, Whole Blood This assay measures the concentration of thiamine diphosphate (TDP), the primary active form of vitamin B1. Approximately 90 percent of vitamin B1 present in whole blood is TDP. Thiamine and thiamine monophosphate, which comprise the remaining 10 percent, are not measured. This test was developed and its performance characteristics determined by [facility]. It has not been cleared or approved by the US Food and Drug Administration. This test was performed in a CLIA certified laboratory and is intended for clinical purposes. Performed By: [facility] [address] [place] [address] Workday Manager: Ceasar Romero MD, PhD CLIA Number: [id number] Blood BLOOD SPECIMEN / Unknown Venipuncture / Unknown 05/18/2024 11:25 AM CDT 05/18/2024 11:25 AM CDT Miriam Melton APRN [facility] - BLOOD ORDERABL ES Final Result Performing Organization Address [facility]/ZIP Co de Phone Number [address] [address], [facility] [phone] * Vitamin A (05/18/2024 11:25 AM CDT) Pathologist [facility] Vitamin A 0.81 0.30 - 1.20 mg/L 05/21/2024 11:25 AM CDT [facility] Retinol Palmitate <0.02 0.00 - 0.10 mg/L 05/21/2024 11:25 AM CDT [facility] Vitamin A Interp Normal 05/21/20 24 11:25 AM CDT [facility] Comment: This test was developed and its performance characteristics determined by [facility]. It has not been cleared or approved by the US Food and Drug Administration. This test was performed in a CLIA certified laboratory and is intended for clinical purposes. Performed By: [facility] [address] [place], [place] [id number] Workday Manager: Ceasar Romero MD, PhD CLIA Number: [id number] Blood BLOOD SPECIMEN / Unknown Venipuncture / Unknown 05/18/2024 11:25 AM CDT 05/18/2024 11:25 AM CDT Miriam Melton APRN, CNP LAB - BLOOD ORDERABL ES Final Result Performing Organization Address City/[facility]/ZIP Co de Phone Number [address] [address], [facility] [phone] * TSH (05/18/2024 11:25 AM CDT) Pathologist [facility] TSH 1.47 0.30 - 4.20 uIU/mL 05/18/2024 4:24 PM CDT [facility] Blood BLOOD SPECIMEN / Unknown Venipuncture / Unknown 05/18/2024 11:25 AM CDT 05/18/2024 11:25 AM CDT Miriam Melton APRN, CNP LAB - BLOOD ORDERABL ES Final Result Performing Organization Address City/[facility]/ZIP Co de Phone Number [facility] [address] [facility], [address] * Parathyroid Hormone Intact (05/18/2024 11:25 AM CDT) [facility] Parathyroid Hormone Intact 37 15 - 65 pg/mL 05/18/2024 3:20 PM CDT [facility] Blood BLOOD SPECIMEN / Unknown Venipuncture / Unknown 05/18/2024 11:25 AM CDT 05/18/2024 11:25 AM CDT Narrative [facility] - 05/18/2024 3:20 PM CDT This result was obtained with the [employer] PTH STAT assay. This reference range differs from PTH assays used in other [facility] laboratories. Miriam Melton APRN, CNP LAB - BLOOD ORDERABL ES Final Result Performing Organization Address City/[facility] Co de Phone Number LABORATORY [facility] [address] [place] [address], [address] * (ABNORMAL) Lipid Profile (05/18/2024 11:25 AM CDT) [facility] Cholesterol 213(H) <200 mg/dL 05/18/2024 4:24 PM [...] Borderline High: 130 - 159 mg/dL High: 160 - 189 mg/dL Very High: >= 190 mg/dL Non HDL Cholesterol Desirable: < 130 mg/dL Above Desirable: 130 - 159 mg/dL Borderline High: 160 - 189 mg/dL High: 190 - 219 mg/dL Very High: >= 220 mg/dL Miriam Melton APRN PCB DESIGN ENGINEER LAB - BLOOD ORDERABL ES Final Result [facility] Core Lab [address] [facility], [address] [place] [id number] * (ABNORMAL) Hemoglobin A1c (05/18/2024 11:25 AM CDT) Estimated Average Glucose 128(H) <117 mg/dL 05/18/2024 11:37 AM CDT [facility] Hemoglobin A1C 6.1(H) 0.0 - 5.6 % 05/18/2024 11:37 AM CDT [facility] Comment: Normal <5.7% Prediabetes 5.7-6.4% Diabetes 6.5% or higher Note: Adopted from ADA consensus guidelines. Blood BLOOD SPECIMEN / Unknown Venipuncture / Unknown 05/18/2024 11:25 AM CDT 05/18/2024 11:25 AM CDT Miriam Melton APRN, CNP LAB - BLOOD ORDERABL ES Final Result [facility] [address] * Folate (05/18/2024 11:25 AM CDT) Pathologist [facility] Folic Acid 8.5 4.6 - 34.8 ng/mL 05/18/2024 3:31 PM CDT [facility] Blood BLOOD SPECIMEN / Unknown Venipuncture / Unknown 05/18/2024 11:25 AM CDT 05/18/2024 11:25 AM CDT Miriam Melton APRN, CNP LAB - BLOOD ORDERABL ES Final Result [facility] Core Lab [address] [facility], [address] * Ferritin (05/18/2024 11:25 AM CDT) Pathologist [facility] Ferritin 13 6 - 175 ng/mL 05/18/2024 4:24 PM CDT [facility] Blood BLOOD SPECIMEN / Unknown Venipuncture / Unknown 05/18/2024 11:25 AM CDT 05/18/2024 11:25 AM CDT Miriam Melton APRN PCB DESIGN ENGINEER LAB - BLOOD ORDERABL ES Final Result [facility] Core Lab [address] [facility], [address] * (ABNORMAL) Comprehensive metabolic panel (05/18/2024 [...] Miriam Melton APRN, CNP LAB - BLOOD ORDERABL ES Final Result [facility] Core Lab [address] [facility], [address] * Vitamin B12 (05/18/2024 11:25 AM CDT) Pathologist [facility] Vitamin B12 430 232 - 1,245 pg/mL 05/18/2024 4:24 PM CDT [facility] Blood BLOOD SPECIMEN / Unknown Venipuncture / Unknown 05/18/2024 11:25 AM CDT 05/18/2024 11:25 AM CDT Miriam Melton APRN, CNP LAB - BLOOD ORDERABL ES Final Result Performing Organization Address City/[facility]/ZIP Co de Phone Number [facility] Core Lab [address] [facility], [address] * (ABNORMAL) CBC with platelets (05/18/2024 [...] - 36.5 g/dL 05/18/2024 11:35 AM CDT [facility] RDW 15.5(H) 10.0 - 15.0 % 05/18/2024 11:35 AM CDT [facility] Platelet Count 411 150 - 450 10e3/uL 05/18/2024 11:35 AM CDT [facility] Blood BLOOD SPECIMEN / Unknown Venipuncture / Unknown 05/18/2024 11:25 AM CDT 05/18/2024 11:25 AM CDT Miriam Melton APRN PCB DESIGN ENGINEER LAB - BLOOD ORDERABL ES Final Result [facility] [address] * Mammogram - HIM Scan (05/02/2024 12:00 AM CDT) Anatomical Region Laterality Modality Other 05/02/2024 Provider Outside IMG MAMMOGRAPHY ORDERABLES Elise l Result * Pap thin layer screen with HPV - recommended age 30 - 65 years (05/07/2021 11:50 AM CDT) Interpretation Negative for Intraepithelial Lesion or Malignancy (NILM) 05/09/2021 2:32 PM CDT [facility] Specimen Adequacy Satisfactory for evaluation, endocervical/paul sformation zone component absent 05/09/2021 2:32 PM CDT [facility] Clinical Information complete hysterectomy 05/09/2021 2:32 PM CDT [facility] Reflex Testing Yes regardless of result 05/09/2021 2:32 PM CDT [facility] Previous Abnormal? No 05/09/2021 2:32 PM CDT [facility] Performing Labs The technical component of this testing was completed at [facility] 05/09/2021 2:32 PM CDT [facility] Brushing VAGINAL STRUCTURE / Unknown 05/07/2021 11:50 AM CDT 05/07/2021 12:21 PM CDT [facility] Final Result [facility] [address] [place] [address], [facility] [phone] * HPV High Risk Types DNA Cervical (05/07/2021 11:50 AM CDT) Other HR HPV Negative Negative 05/13/2021 2:50 PM CDT [facility] HPV16 DNA Negative Negative 05/13/2021 2:50 PM CDT [facility] HPV18 DNA Negative Negative 05/13/2021 2:50 PM CDT [facility] FINAL DIAGNOSIS This patient's sample is negative for HPV DNA. This test was developed and its performance characteristics determined by the [facility], Molecular Diagnostics Laboratory. It has not [...] followup is recommended. 05/13/2021 2:50 PM CDT [facility] Brushing VAGINAL STRUCTURE / Unknown Non-blood Collection / Unknown 05/07/2021 11:50 AM CDT 05/12/2021 8:50 AM CDT us Alan Shah MD LAB - BLOOD ORDERABLES Final Result [facility] Molecular Diagnostics Lab [address] [place] [address], [address] [place] [address], [facility] [phone] * HIV 1 and 2 rapid screen (01/28/2010 12:27 PM CDT) HIV Rapid Antibody Screen Negative for HIV-1 and/or HIV-2 antibodies HIVNEG [facility] 01/28/2010 12:2 7 PM CDT 01/28/2010 12:34 PM CDT Aj Perkins MD LAB - BLOOD ORDERABL ES Final Result [facility] * Hepatitis C antibody (01/28/2010 12:27 PM CDT) Hepatitis C Antibody Negative NEG [facility] 01/28/2010 12:2 7 PM CDT 01/28/2010 12:34 PM CDT Aj Perkins MD LAB - BLOOD ORDERABL ES Final Result [facility] from Last 3 Months or Most Recently Relevant to Health Maintenance Additional Health Concerns Active Problems Noted Date Diagnosed Date MyC ECC SURG ENROLL 07/17/2024 Insurance [place] [address] [facility] CHOICE Advance Directives For more information, please contact: [phone] * Full Code (Latest Code Status on File) Date Activated Date Inactivated Comments 12/19/2015 3:02 PM 12/20/2015 1:10 PM Care Teams Business Integration Manager Relationship Specialty Start Date End Date Herson Rhodes MD PCP - General 06/02/11 [facility] [address] [place] [address] Assigned PCP 12/14/[address] [place] [address] Registered Dietitian Dietitian, Registered 06/09/24 Dung Alva, PhD [facility] [address] [address] Assigned Behavioral Health Provider 06/14/24 Aris Thurman MD [address] [place] [address] Assigned Surgical Provider 07/15/24 Miriam Melton APRN PCB DESIGN ENGINEER [address] [place] [address] Nurse Practitioner Surgery 07/19/24
--- OUTSIDE RECORDS SUMMARY | 2024-07-31 09:36 | XMS_ITS ---
Author Organization [facility] Address [address] [place] [address] Care Team Providers Care Boat Captain Name Role Phone Unavailable Unavailable Unavailable Surgery Details Not on file Complications Check Surgery Details section. Procedure Estimated Blood Loss Check Surgery Details section. Procedure Findings Check Surgery Details section. Procedure Specimens Taken Check Surgery Details section.
--- OUTSIDE RECORDS SUMMARY | 2024-07-31 09:36 | XMS_ITS | Patient Health Record ---
Author Organization [facility] Address [address] [place] [address] Care Team Providers Care Configuration Management Advisor Name Role Phone None, No PCP Primary Care Provider Adenike Spain Unavailable [phone] Valeria Mario Unavailable Allergies Allergen (clinical drug ingredient) Drug/Non Drug Allergy documented on EMR Reaction Allergy Type Onset Date Status promethazine Phenergan Unknown Drug Allergy Acti ve Compazine Unknown Drug Allergy Active Results Component Value Reference Range Notes THINPREP TIS AND HPV mRNA E6 /E7 (30 yrs and over) Reviewed date:06/22/2024 02:51:29 PM Interpretation: Performing Lab:[facility] Herb Mckee Notes/Report: CLINICAL INFORMATION: None g iven LMP: NONE GIVEN PREV. PAP: 02/10/2023 PREV. BX: NONE GIVEN SOURCE: Cervix, Endocer vix STATEMENT OF ADEQUACY: Satisfactory for evaluation. Endocervical/transformation zone component absent. Age and/or menstrual status not provided INTERPRETATION/RESULT: Cytology Results: Negative for intraepithelial lesion or malignancy. COMMENT: This Pap test has been evaluated with computer assisted technology. FILM LABORATORY TECHNICIAN: RENÉ HEARN(ASCP) CT Screening location: [address] [address] COMMENT EXPLANATORY NOTE: The Pap is a [...] mRNA E6/E7 Not Detected Not Detected Methodology: Optical Lab Technician-Mediated Amplification This assay detects E6/E7 viral messenger RNA (mRNA) from 14 high-risk HPV types (16,18,31,33,35,39,45,51,52,5 6,58,59,66,68). Cervical sources are required for HPV testing. If a vaginal source from a patient who has had a total hysterectomy with removal of cervix was submitted, please contact the testing laboratory for alternative testing options. For additional information, please refer to [email or web address]/[email or web address] (This link if provided for information/ educational purposes only.) Sensitive Estradiol (IH) Reviewed date:11/08/2023 11:45:38 AM Interpretation: Performing Lab: Notes/Report: Access 2 ([id number]), Access 2 [facility] (IH) Reviewed date:11/08/2023 11:46:50 AM Interpretation: Performing Lab: Notes/Report: Access 2 ([id number]), Access 2 [facility] Reason For Referral No Information Medications Medication SIG (Take, Route, Frequency, Duration) Notes Start Date End Date Status DULoxetine HCl 60 mg Activ e Vivelle Transdermal Estradiol 0.5 MGS/24 hours Not-Taking Escitalopram Oxalate 20 mg Active Estrace 0.1 MG/GM as directed Vaginal three times a week for 90 days 06/19/2024 Active Celecoxib 200 mg Active clonazePAM 1 mg Active OLANZapine 5 mg Active Baclofen 20 mg Active Omeprazole 40 Active Metoprolol Succinate 100 mg Active Topiramate 100 Active Fluticasone Propionate HFA Active Estradiol 0.05 MG/24HR APPLY 1 PATCH TO SKIN TRANSDERMAL TWO TIMES A WEEK 30 DAYS for 28 Active Mounjaro 5 MG/0.5ML as directed Subcutaneous Active traMADol HCl 100 Active Estradiol 0.05 MG/24HR APPLY 1 PATCH TO SKIN TOPICALLY 2 TIMES PER WEEK for 28 Active Social History Tobacco Use: Social History [...] Status Risk Notes Problem Adult health examination (251072297) Annual visit for general adult medical examination without abnormal findings (Z00.00) Active confirmed Problem Menopause (207777707) Menopause (Z78.0) Active confirmed Problem 471057486 Obesity, morbid, BMI 50 or higher (E66.01) Active confirmed Problem Menopausal and postmenopausal disorder (N95.9) Active confirmed Problem 850598341 Obesity, Class III, BMI 40-49.9 (morbid obesity) (E66.01) Active confirmed Problem 733666877 S/P laparoscopic hysterectomy (Z90.710) Active confirmed Problem 876882725 Surgical menopause, asymptomatic (E89.40) Active confirmed Vital Signs Blood pressure diastolic 80 mm Hg 07/27/2024 Height 64.50 in 07/27/2024 Blood pressure systolic 126 mm Hg 07/27/2024 Weight 298.0 lbs 07/27/2024 BMI 50.36 kg/m2 07/27/2024 Encounters Encounter Location Date Provider Diagnosis [address] [address] 01/27/2024 Adenikealberto Hatfield Hormone replacement therapy (HRT) Z79.890 ; S/P laparoscopic hysterectomy Z90.710 and Obesity, Class III, BMI 40-49.9 (morbid obesity) E66.[address] [address] 07/27/2024 Adenikealberto Hatfield Hormone replacement therapy (HRT) Z79.890 ; Obesity, morbid, BMI 50 or higher E66.01 and Prediabetes R73.[address] [address] 10/28/2023 Adenike Hatfield Surgical menopause, asymptomatic E89.40 and Hormone replacement therapy (HRT) Z79.[address] [address] 06/19/2024 Valeria Mccann Cervical cancer screening Z12.[address] [address] 10/28/2023 Adenike Hatfield Menopausal and postmenopausal disorder N95.[address] [address] 06/19/2024 Valeria Mccann Encounter for well woman exam Z01.419 and Encounter for screening for human papillomavirus (HPV) Z11.51 [facility] [address] [place] [address] 01/19/2024 Adenike Hatfield [facility] [address] [id number] 03/29/2024 Adenike Hatfield [facility] [address] [place] [id number] 05/22/2024 Adenike Hatfield [facility] [address] [place] [address] 06/19/2024 Valeria Mccann Assessments Encounter Date Diagnosis (ICD Code) Assessment Notes Treatment Notes Treatment Clinical Notes Section Notes 10/28/2023 Hormone replacement therapy (HRT) (ICD-10 [...] in three months at her clinic in [place] and follow-up. All of her questions were [...] her chart, we requested them from her [place] clinic at her last visit. She went [...] for Endometriosis. She does not require Progesterone. 06/19/2024 Cervical cancer screening (ICD-10 - Z12.4) 06/19/2024 Encounter for screening for human papillomavirus (HPV) (ICD-10 - Z11.51) 06/19/2024 Encounter for well woman exam (ICD-10 - Z01.419) 07/27/2024 Obesity, morbid, BMI 50 or higher (ICD-10 - E66.01) Patient has Bariatric surgery scheduled for later this month. 07/27/2024 Hormone replacement therapy (HRT) (ICD-10 - [...] All of her questions were addressed 07/27/2024 Prediabetes (ICD-10 - R73.03) The patient is on Mounjaro for her Prediabetes 01/27/2024 Obesity, Class III, BMI 40-49.9 (morbid [...] - discussion of care with another health animal caretaker if indicated - direct face to face [...] - discussion of care with another health animal caretaker if indicated - direct face to face [...] in the treatment portion of the note 06/19/2024 Other 1. Need to obtain hysterectomy pathology and previous pap smears 2. Discussed pap smear planning and pathology dictates pap smears. Owen wanted pap before surgery, obtained 3. She is off estrogen for surgery, sent cream for the vaginal dryness. 07/27/2024 Other Time spent on patient care including - review of previous records - preparation for visit - ordering medications, labs or imaging - documenting visit - discussion of care with another health animal caretaker if indicated - direct face to face [...] Of Treatment Next Appt Details Provider Name:Adenike Tolentino meghan, 10/31/2024 10:15:00 AM, [address] [place], [address], Provider Name:Adenike Tolentino meghan, 11/09/2024 10:00:00 AM, [address] [place], [address], Insurance Providers Payer Name Payer Address Payer Phone Subscriber Number Group Number Insured Name Patient Relationship to Insured Coverage Start Date Coverage End Date UMR (INS BILL) [address] [address] [place] [phone] [id number] Sofia Iyer Self - patient is the insured Medical (General) History Medical History History ICD Code chronic pain endometriosis anxiety/depression hx of migraines hypertension ulcers Surgical History Surgery Date(Month/Year) spinal cord stimulator upper endoscopy total hysterectomy ovarian cysts removed D and C Hospitalization History Reason Date(Month/Year) psych 01/21/2023
--- OUTSIDE RECORDS SUMMARY | 2024-07-31 09:36 | XMS_ITS | Clinical Summary ---
Author Organization [facility] Address [place], [place] [address] Care Team Providers Care Grease Worker Name Role Phone Herson Rhodes MD Primary Care Provider + Allergies Active Allergy Reactions Criticality Noted Date Comments Prochlorperazine Dystonia,Restless Legs/Feet 11/17/2007 Takes as prn for migraines but does get the restless legs side effect Levofloxacin GI Upset 06/02/2017 Promethazine Dystonia High 06/10/2020 Medications fluticasone (50 mcg per actuation) nasal solution (FLONASE)Indicat ions:Seasonal allergic rhinitis APPLY TWO SPRAYS IN EACH NOSTRIL EVERY DAY 3 Bottle 2 07/25/2018 Active metoprolol succinate (TOPROL XL) 100 mg Sustained-Releas e tabletIndication s:Hypertension, unspecified type Take 1 tablet by mouth once daily. 90 tablet 3 09/05/2018 Active topiramate (TOPAMAX) 100 mg tabletIndication s:Degenerative lumbar disc,Chronic daily headache,Chronic migraine TAKE ONE [...] times daily. Active baclofen (LIORESAL) 20 mg tabletIndication s:Cervicalgia Take 2 Tablets (40 mg) by mouth. 240 Tablet 5 01/06/2023 Active estradioL (ESTRACE) 1 mg tabletIndication s:Endometriosis Take 1 Tablet (1 mg) by mouth once daily. 0 01/06/2023 Active traZODone (DESYREL) 100 mg tabletIndication s:Generalized anxiety disorder Take 1 Tablet (100 mg) by mouth at bedtime. 30 Tablet 01/11/2023 Active OLANzapine (ZYPREXA) 5 mg tabletIndication s:Generalized anxiety disorder,Substan ce-induced psychotic disorder (HC) Take 1 Tablet (5 mg) by mouth once daily. 30 Tablet 01/21/2023 Active escitalopram oxalate (LEXAPRO) 20 mg tabletIndication s:Generalized anxiety disorder Take 1 Tablet (20 mg) [...] more drinks on one occasion? 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 Not on file Not on file Not on file Not on file Not on file Not on file Not on file Obstetrics History Para Term AB IAB SAB Ectopic Multiple Livin g Live Births 0 0 0 0 0 0 0 0 0 0 Last Filed Vital Signs Vital Sign Reading Time Taken Comments Blood Pressure 119/79 01/11/2023 9:46 AM CDT Pulse 65 01/11/2023 9:46 AM CDT Temperature 36.4 C (97.6 F) 01/11/2023 9:46 AM CDT Respiratory Rate 18 01/11/2023 9:46 AM CDT [...] MAINTAINS BP less than 140/90 Blood Pressure No Herson Rhodes MD Medical Devices Implanted Type Area Edger Liner Device Identifier Shelf Expiration Date Model / Serial / Lot Stimulator Spinal Primeadvanedsurescan Mri - [id number] Implanted:Qty: 1 on 12/02/2017 by Herson Lala MD at [facility] Left: Flank Medtronic Pain Therapy 12/18/2018 [id number]# / [id number] / Stimulator Spinal Intellis Mri - [id number] Implanted:Qty: 1 on 06/19/2020 by Herson Lala MD at [facility] Left: Flank [employer]onic Pain Therapy 04/19/2021 [id number]# / / [id number] Envkey Neuro Tyrx Absorb Antibacterial - [id number] Implanted:Qty: 1 on 06/19/2020 by Herson Lala MD at [facility] Left: Flank Medtronic 01/10/2021 [id number] # / / [id number] Explanted Type Area Edger Liner Device Identifier Shelf Expiration Date Model / Serial / Lot [id number] - [id number] Explanted:Qty: 1 on 12/02/2017 at [facility] Left: Flank Medtronic [id number] / [id number] / Description:Spinal cord gene rator battery Procedures Procedure Name Priority Date/Time Associated Diagnosis Comments ANTI HCV Timed 08/21/2004 9:55 AM FRONT DESK PERSON from Last 3 Months or Most Recently Relevant to Health Maintenance Results * ANTI HCV (08/21/2004 9:55 AM FRONT DESK PERSON) ANTI HCV Non-reactiv e [facility] 08/21/2004 9:55 AM FRONT DESK PERSON 08/21/2004 7:46 PM FRONT DESK PERSON Narrative [facility] - 08/26/2004 1:39 PM FRONT DESK PERSON Testing Performed By [place], [place] Radha Huff VOLUNTEER SERVICES COORDINATOR SEND OUTS Final Result [facility] [address] [place] [address] from Last 3 Months or Most Recently [...] 7:00 AM 07/21/2009 2:26 AM Care Teams Grease Worker Relationship Specialty Start Date End Date Herson Rhodes MD [address] [place] [address] PCP - General Family Practice 06/10/20
--- OUTSIDE RECORDS SUMMARY | 2024-07-31 09:36 | XMS_ITS | Referral Summary ---
Author Organization [facility] Address [address] [place] [address] Care Team Providers Care Heel Finisher Name Role Phone Unavailable Primary Care Provider Unavailabl e Source Comments Patient records contain information from all sites at [facility]. For routine questions regarding patient records, call [phone] during business hours, M-F 8:00 AM - 5:00 PM Central Time. Record requests for emergency care only can be directed to [phone] at any time.[facility] Immunizations Name Administration Dates Next Due DTaP (Infanrix, [employer]) 06/04/2008 Influenza, Unspecified 07/29/2015,06/04/2008 Social History Tobacco Use Types Packs/Day Years Used Date Smoking Tobacco: Never Nutrition Answer Date Recorded Nutrition: EVOO Fat Source Unknown 10/16 Nutrition: Servings of Fruits/Vegetables per Day Not on file 2020 Dental Answer Date Recorded Dental: Regular Dentist Unknown 10/16/19 21 Comments Unknown Sex and Gender Information Value Date Recorded Sex Assigned at Not on file Legal Sex Female 9:22 AM PRORATE CLERK Gender Identity Not on file Sexual Orientation Not on file Last Filed Vital Signs Vital Sign Reading Time Taken Comments Blood Pressure 122/80 07/01/2015 11:34 AM PRORATE CLERK Pulse 80 07/01/2015 11:34 AM PRORATE CLERK Temperature - - Respiratory Rate 14 07/01/2015 11:34 AM PRORATE CLERK Oxygen Saturation - - Inhaled Oxygen Concentration - - Weight 104 kg (229 lb 4.5 oz) 07/01/2015 11:34 A M PRORATE CLERK Height 166 cm (5' 5.35) 07/29/2015 2:10 PM PRORATE CLERK Body Mass Index 37.74 07/01/2015 11:34 AM PRORATE CLERK Plan of Treatment Not on file Insurance [facility]
--- OUTSIDE RECORDS SUMMARY | 2024-07-31 09:36 | XMS_ITS | Clinical Summary ---
Author Organization [facility] Address [address] [place] [address] Care Team Providers Care Pan Devulcanizer Helper Name Role Phone Unavailable Primary Care Provider Unavailabl e Source Comments Patient records contain information from all sites at [facility]. For routine questions regarding patient records, call [phone] during business hours, M-F 8:00 AM - 5:00 PM Central Time. Record requests for emergency care only can be directed to [phone] at any time.[facility] Immunizations Name Administration Dates Next Due [...] on file Legal Sex Female 9:22 AM UTILITY AGENT Gender Identity Not on file Sexual Orientation Not on file Last Filed Vital Signs Vital Sign Reading Time Taken Comments Blood Pressure 122/80 07/01/2015 11:34 AM UTILITY AGENT Pulse 80 07/01/2015 11:34 AM UTILITY AGENT Temperature - - Respiratory Rate 14 07/01/2015 11:34 AM UTILITY AGENT Oxygen Saturation - - Inhaled Oxygen Concentration - - Weight 104 kg (229 lb 4.5 oz) 07/01/2015 11:34 A M UTILITY AGENT Height 166 cm (5' 5.35) 07/29/2015 2:10 PM UTILITY AGENT Body Mass Index 37.74 07/01/2015 11:34 AM UTILITY AGENT Plan of Treatment Health Maintenance Due Date Last Done Comments HIV Screening 1980 Hepatitis C Screening 1980 Mammogram 1980 Depression Screening (Annual PHQ-2) 08/23/2023 COVID-19 Vaccine ( season) 2024 04/30/2022, 06/12/2021, 10/03/2020, Additional history exists Cervical/Vaginal Cancer Screening 05/07/2024 05/07/2021, 03/04/2020, 09/26/2018 Influenza Vaccine (#1) 2024 , 07/03/2022, 07/10/2021, Additional history exists Lipid (Cholesterol) Screening 01/02/2028 01/01/2023 DTaP,Tdap,and Td Vaccines (3 - Td or Tdap) 04/07/2029 04/07/2019, 06/04/2008, 06/04/2008 Hepatitis B Vaccines Completed 01/30/2002, 05/17/2000, 04/16/2000 HPV Vaccines Aged Out No longer eligi ble based on patient's age to complete this topic IPV Vaccines Aged Out No longer eligi ble based on patient's age to complete this topic Pneumococcal vaccine (0-64 years) Aged Out No longer eligible based on patient's age to complete this topic [place] [id number] [employer]
--- OUTSIDE RECORDS SUMMARY | 2024-07-31 09:37 | XMS_ITS | Encounter Summary ---
Author Organization [facility] Address [address] [place] [address]. [place] [address] Care Team Providers Care Steel Placer Name Role Phone Herson Rhodes MD Primary Care Provider [facility] Unavailabl e Hien Flood RD Unavailable [phone] Dung Alva PhD Unavailable [phone] Aris Thurman MD Unavailable Encounter Details Date Type Department Care Team (Late st Contact Info) Description 07/17/2024 Documentation Only [facility] [address] [address] Radha Brown Social History Tobacco Use Types Packs/Day Years [...] PM CDT Legal Sex Female 5:06 AM DIRECTOR DECISION SUPPORT Gender Identity Female 04/04/2021 10:28 PM CDT Sexual Orientation Straight 04/04/2021 10 :28 PM CDT documented as of this encounter Progress Notes * Radha Brown - 07/17/2024 1:57 PM CST Sofia is scheduled for a LRNY ([id number]) with Dr. Aris Thurman on Wednesday, August 07, 2024 @ 10:50 am. Scheduled for Pre op class on Friday, July 19, 2024 @ 12:30 pm. She will have her pre op and testing done at [facility]. R # [id number] CTOR DECISION SUPPORT CTOR DECISION SUPPORT documented in this encounter Miscellaneous Notes * Addendum Note - Litzy Hall RN - 07/17/2024 1:57 PM CSTAddended by: LITZY HALL on: 07/17/2024 03:38 PM Modules accepted: Orders CTOR DECISION SUPPORT documented in this encounter Plan of Treatment Upcoming Encounters Date Type Department Care Team (Late st Contact Info) Description 08/07/2024 10:50 AM DIRECTOR DECISION SUPPORT Hospital Encounter [address] [phone] Aris Thurman MD [address] [place] [address] 08/07/2024 10:50 AM DIRECTOR DECISION SUPPORT - 08/07/2024 1:40 PM DIRECTOR DECISION SUPPORT Surgery [address] [address] Aris Thurman MD [address] [place] [id number] CREATION, GASTRIC BYPASS, SRIDHAR-EN-Y, LAPAROSCOPIC 08/15/2024 1:00 PM DIRECTOR DECISION SUPPORT Virtual Visit [facility] [address] [place] [address] 08/30/2024 12:30 PM DIRECTOR DECISION SUPPORT [facility] [address] 200 [place] [address] Aris Thurman MD 2945 [facility] 200 [place] [address] 09/08/2024 11:00 AM DIRECTOR DECISION SUPPORT Virtual Visit [facility] [address] 200 [place] [address] Betty Leonardo, RD 2945 [facility] 200 [place] [address] 11/06/2024 9:30 AM CDT Virtual Visit [facility] [address] 200 [place] [address] Dung Alva, PhD RONNA AND JDF [facility] 200 [place] [address] 11/07/2024 9:30 AM CDT Virtual Visit [facility] [address] 200 [place] [address] Hien Flood, ZEINAB 2945 [facility] 200 [place] [address] 02/08/2025 1:30 PM CDT Office Visit [facility] [address] 200 [place] [address] Miriam Melton, SUPERVISOR AGRICULTURAL EDUCATION STATE ATTORNEY 2945 [facility] 200 [place] [address] 05/09/2025 9:30 AM CDT Virtual Visit [facility] [address] 200 [place] [phone] 2945 [facility] 200 [place], [place] [phone] 08/09/2025 1:30 PM DIRECTOR DECISION SUPPORT Office Visit [facility] [place] [address] [place] [address] 200 [place] [phone] Miriam Melton APRN STATE ATTORNEY [address] [place] [address] [phone] Scheduled Procedures Name Priority Associated Diagnoses Date/Ti me CREATION, GASTRIC BYPASS, SRIDHAR-EN-Y, LAPAROSCOPIC Morbid obesity (H) Duodenal stricture 08/07/2024 10:50 AM DIRECTOR DECISION SUPPORT documented as of this encounter Goals Goal Patient Goal Type Associated Problems Recent Progress Patient-Stated? Author MYC ECC SURG ENROLL Care Plan MyC ECC SURG ENROLL No Lindsay Serrato documented as of this encounter Visit Diagnoses Not on filedocumented in this encounter Additional Health Concerns Active Problems Noted Date Diagnosed Date MyC ECC SURG ENROLL 07/17/2024 Assessment Noted Time PHQ-9 Depression Total Score: 2 05/07/20 21 11:37 AM CDT documented as of this encounter Care Teams Steel Placer Relationship Specialty Start Date End Date Herson Rhodes MD PCP - General 06/02/11 Clinic - [facility] [address] [place] [address] Assigned PCP 12/14/[address] [place] [address] [place] [address] 200 [place] [address] Registered Dietitian Dietitian, Registered 06/09/24 Dung Alva, PhD RONNA AND JDF [facility] [address] [place] [address] Assigned Behavioral Health Provider 06/14/24 Aris Thurman MD 2945 [facility] 200 [place] [address] Assigned Surgical Provider 07/15/24 documented as of this encounter
--- OUTSIDE RECORDS SUMMARY | 2024-07-31 09:37 | XMS_ITS | Encounter Summary ---
Author Organization [facility] Address [address] [place] [address]. [place] [address] Care Team Providers Care Assistant Professor Of Life Sciences Name Role Phone Herson Rhodes MD Primary Care Provider [phone] [facility] Unavailabl e Hien Flood [address] Unavailable [phone] Miriam Melton APRN RESTAURANT MAINTENANCE TECHNICIAN Unavailable [phone] Dung Alva PhD Unavailable [phone] Encounter Details Date Type Department Care Team (Latest Contact Info) Description 06/29/2024 Travel Social History Tobacco Use Types Packs/Day [...] PM CDT Legal Sex Female 5:06 AM EPIC SPECIALIST Gender Identity Female 04/04/2021 10:28 PM CDT Sexual Orientation Straight 04/04/2021 10 :28 PM CDT documented as of this encounter Plan of Treatment Upcoming Encounters Date Type Department Care Team (Late st Contact Info) Description 08/07/2024 10:50 AM EPIC SPECIALIST Hospital Encounter [address] [address] [place] [address] [place] [address] 08/07/2024 10:50 AM EPIC SPECIALIST - 08/07/2024 1:40 PM EPIC SPECIALIST Surgery [facility] [address] [place] [address] Aris Thurman MD [address] [place] [address] CREATION, GASTRIC BYPASS, SRIDHAR-EN-Y, LAPAROSCOPIC 08/15/2024 1:00 PM EPIC SPECIALIST Virtual Visit [facility] Surgery Clinic [facility] Bariatrics Care [address] [address] 08/30/2024 12:30 PM EPIC SPECIALIST Virtual Visit [facility] [address] [address] Aris Thurman MD [address] [place] [address] 09/08/2024 11:00 AM EPIC SPECIALIST Virtual Visit [facility] [address] [address] Betty Leonardo, RD [facility] [address] 11/06/2024 9:30 AM CDT Virtual Visit [facility] Care [address] [address] Dung Alva, PhD RONNA AND [employer] [facility] [address] 200 [place] [address] 11/07/2024 9:30 AM CDT Virtual Visit [facility] [address] 200 [place] [address] Hien Flood, RD 29[address] [facility] 200 [place] [address] 02/08/2025 1:30 PM CDT Office Visit [facility] [address] 200 [place] [address] Miriam Melton, DEE RESTAURANT MAINTENANCE TECHNICIAN [address] [place] [address] 05/09/2025 9:30 AM CDT Virtual Visit [facility] [address] 200 [place] [address] Hien Flood, RD 2945 [facility] 200 [place] [address] 08/09/2025 1:30 PM EPIC SPECIALIST Office Visit [facility] [address] 200 [place] [address] Miriam Melton, DEE RESTAURANT MAINTENANCE TECHNICIAN [address] [place] [address] Scheduled Procedures Name Priority Associated Diagnoses Date/Ti me CREATION, GASTRIC BYPASS, SRIDHAR-EN-Y, LAPAROSCOPIC Morbid obesity (H) Duodenal stricture 08/07/2024 10:50 AM EPIC SPECIALIST documented as of this encounter Visit Diagnoses Not on filedocumented in this encounter Additional Health Concerns Assessment Noted Time PHQ-9 Depression Total Score: 2 05/07/20 21 11:37 AM CDT documented as of this encounter Care Teams Assistant Professor Of Life Sciences Relationship Specialty Start Date End Date Herson Rhodes MD PCP - General 06/02/11 [facility] [address] [place] [address] Assigned PCP 12/14/[address] [facility] 200 [place] [address] Registered Dietitian Dietitian, Registered 06/09/24 Miriam Melton APRN CNP 2945 [facility] 200 [place] [address] Assigned Surgical Provider 06/14/24 07/14/24 Dung Alva, PhD RONNA AND [facility] [address] [facility] 200 [place], [place] [address] Assigned Behavioral Health Provider 06/14/24 documented as of this encounter
--- OUTSIDE RECORDS SUMMARY | 2024-07-31 09:37 | XMS_ITS | Encounter Summary ---
Author Organization [facility] Address [address] [place] [address]. [place] [address] Care Team Providers Care Harness Builder Name Role Phone Herson Rhodes MD Primary Care Provider [phone] [facility] Unavailabl e Hien Flood [address] Unavailable [phone] Miriam Melton APRN PYTHON DEVELOPER Unavailable [phone] Dung Alva PhD Unavailable [phone] Encounter Details Date Type Department Care Team (Late st Contact Info) Description 06/28/2024 9:30 AM RV REPAIR TECHNICIAN Virtual Visit [facility] Surgery Clinic and Bariatrics Care [address] [place] [phone] Dung Alva, PhD RONNA AND [employer] [facility] 200 [place], [place] [phone] Morbid obesity (H) (Primary Dx) Social History Tobacco Use Types [...] PM CDT Legal Sex Female 5:06 AM RV REPAIR TECHNICIAN Gender Identity Female 04/04/2021 10:28 PM CDT Sexual Orientation Straight 04/04/2021 10 :28 PM CDT documented as of this encounter Progress Notes * Dung Alva, PhD - 06/28/2024 9:30 AM CST Virtual Visit Details Type of service: Video Visit Originating Location (pt. Location): Home Distant Location (provider location): Off-site Platform used for Video Visit: Sivakumar Black has made quality changes in eating and lifestyle, and appears more mindful about her eating. She is now ready to proceed with surgery. A report was sent to the clinic. F31.9; E66.01 REPAIR TECHNICIAN documented in this encounter Plan of Treatment Upcoming Encounters Date Type Department Care Team (Late st Contact Info) Description 08/07/2024 10:50 AM RV REPAIR TECHNICIAN Hospital Encounter [address] [address] Aris Thurman MD [address] [place] [address] 08/07/2024 10:50 AM RV REPAIR TECHNICIAN - 08/07/2024 1:40 PM RV REPAIR TECHNICIAN Surgery [address] [address] Aris Thurman MD [address] [place] [address] CREATION, GASTRIC BYPASS, SRIDHAR-EN-Y, LAPAROSCOPIC 08/15/2024 1:00 PM RV REPAIR TECHNICIAN Virtual Visit [facility] Surgery Clinic [facility] B[facility]rics [facility] [place] [address] [place] [address] 08/30/2024 12:30 PM RV REPAIR TECHNICIAN Virtual Visit [facility] [address] 200 [place] [address] Aris Thurman MD 2945 [facility] 200 [place] [address] 09/08/2024 11:00 AM RV REPAIR TECHNICIAN Virtual Visit [facility] [address] 200 [place] [address] Betty Leonardo, RD 2945 [facility] 200 [place] [address] 11/06/2024 9:30 AM CDT Virtual Visit [facility] [address] 200 [place] [address] Dung Alva, PhD RONNA AND [employer] [facility] [address] [facility] 200 [place] [address] 11/07/2024 9:30 AM CDT Virtual Visit [facility] [address] 200 [place] [address] Hien Flood, ZEINAB 2945 [facility] 200 [place] [address] 02/08/2025 1:30 PM CDT Office Visit [facility] [address] 200 [place] [address] Miriam Melton, DEE [address] 200 [place] [address] 05/09/2025 9:30 AM CDT Virtual Visit [facility] [address] [phone] [place] [address] 08/09/2025 1:30 PM RV REPAIR TECHNICIAN Office Visit [facility] [address] [phone] Miriam Melton, DEE PYTHON DEVELOPER [address] [place] [phone] Scheduled Procedures Name Priority Associated Diagnoses Date/Ti me CREATION, GASTRIC BYPASS, SRIDHAR-EN-Y, LAPAROSCOPIC Morbid obesity (H) Duodenal stricture 08/07/2024 10:50 AM RV REPAIR TECHNICIAN documented as of this encounter Visit Diagnoses Diagnosis Morbid obesity (H)- Primary Morbid obesity Morbid obesity (H) Morbid obesity Duodenal stricture Other obstruction of duodenum documented in this encounter Additional Health Concerns Assessment Noted Time PHQ-9 Depression Total Score: 2 05/07/20 21 11:37 AM CDT documented as of this encounter Care Teams Harness Builder Relationship Specialty Start Date End Date Herson Rhodes MD PCP - General 06/02/11 Clinic - [facility] [address] [place] [address] Assigned PCP 12/14/[address] [place] [phone] Registered Dietitian Dietitian, Registered 06/09/24 Miriam Melton, DEE PYTHON DEVELOPER [address] [place] [address] Assigned Surgical Provider 06/14/24 07/14/24 Dung Alva, PhD RONNA AND [employer] [facility] [address] [place] [address] Assigned Behavioral Health Provider 06/14/24 documented as of this encounter
--- OUTSIDE RECORDS SUMMARY | 2024-07-31 09:37 | XMS_ITS | Encounter Summary ---
Author Organization [facility] Address [address] [place] [address]. [place] [address] Care Team Providers Care Make Up Man Name Role Phone Herson Rhodes MD Primary Care Provider [facility] Unavailabl e Hien Flood RD Unavailable Miriam Melton APRN [employer] Unavailable [phone] Dung Alva PhD Unavailable Encounter Details Date Type Department Care Team (Late st Contact Info) Description 07/06/2024 Documentation Only [facility] Surgery Clinic and Bariatrics Care [address] [phone] Radha Brown Social History Tobacco Use Types [...] PM CDT Legal Sex Female 5:06 AM ANTIQUE DEALER Gender Identity Female 04/04/2021 10:28 PM CDT Sexual Orientation Straight 04/04/2021 10 :28 PM CDT documented as of this encounter Progress Notes * Tamanna Browncy Ilene - 07/06/2024 3:59 PM CST I have submitted a PA to [facility] for approval of a LRNY with Dr. Aris Thurman QUE DEALER documented in this encounter Plan of Treatment Upcoming Encounters Date Type Department Care Team (Late st Contact Info) Description 08/07/2024 10:50 AM ANTIQUE DEALER Hospital Encounter [address] [address] Aris Thurman MD [address] [place] [address] 08/07/2024 10:50 AM ANTIQUE DEALER - 08/07/2024 1:40 PM ANTIQUE DEALER Surgery [address] [address] Aris Thurman MD [address] [place] [address] CREATION, GASTRIC BYPASS, SRIDHAR-EN-Y, LAPAROSCOPIC 08/15/2024 1:00 PM ANTIQUE DEALER Virtual Visit [facility] [address] [address] 08/30/2024 12:30 PM ANTIQUE DEALER Virtual Visit [facility] [address] 200 [place] [address] Aris Thurman MD [address] [place] [address] 09/08/2024 11:00 AM ANTIQUE DEALER Virtual Visit [facility] [address] [address] Betty Leonardo, RD 2945 [facility] 200 [place] [address] 11/06/2024 9:30 AM CDT Virtual Visit [facility] [address] 200 [place] [address] Dung Alva, PhD RONNA AND [employer] [facility] [address] 200 [place] [address] 11/07/2024 9:30 AM CDT Virtual Visit [facility] [address] [address] Hien Flood, ZEINAB [address] [address] 02/08/2025 1:30 PM CDT Office Visit [facility] Care [address] [address] Miriam Melton APRN [employer] [address] [place] [address] 05/09/2025 9:30 AM CDT Virtual Visit [facility] [address] [address] Replaced by [facility] [address] 08/09/2025 1:30 PM ANTIQUE DEALER Office Visit [facility] [address] [address] Miriam Melton APRN [employer] [address] [place] [address] Scheduled Procedures Name Priority Associated Diagnoses Date/Ti me CREATION, GASTRIC BYPASS, SRIDHAR-EN-Y, LAPAROSCOPIC Morbid obesity (H) Duodenal stricture 08/07/2024 10:50 AM ANTIQUE DEALER documented as of this encounter Visit Diagnoses Not on filedocumented in this encounter Additional Health Concerns Assessment Noted Time PHQ-9 Depression Total Score: 2 05/07/20 21 11:37 AM CDT documented as of this encounter Care Teams Make Up Man Relationship Specialty Start Date End Date Herson Rhodes MD PCP - General 06/02/11 [facility] [id number] [place] [address] Assigned PCP 12/14/[address] [place] [address] 200 [place] [address] Registered Dietitian Dietitian, Registered 06/09/24 Miriam Melton APRN [employer] Replaced by [facility] 200 [place] [address] Assigned Surgical Provider 06/14/24 07/14/24 Dung Alva, PhD RONNA AND ASS[facility] [address] [facility] 200 [place] [address] Assigned Behavioral Health Provider 06/14/24 documented as of this encounter
--- OUTSIDE RECORDS SUMMARY | 2024-07-31 09:37 | XMS_ITS | Encounter Summary ---
Author Organization [facility] Address [address] [place] [address]. [place] [address] Care Team Providers Care Ship Wirer Name Role Phone Herson Rhodes MD Primary Care Provider [phone] [facility] Unavailabl e Hien Flood RD Unavailable [phone] Miriam Melton APRN SAP BI DEVELOPER Unavailable [phone] Dung Alva PhD Unavailable [phone] Encounter Details Date Type Department Care Team (Late st Contact Info) Description 06/26/2024 2:30 PM COMMERCIAL PROPERTY ADMINISTRATOR Virtual Visit [facility] [place] [address] [facility] 200 [place] [phone] Hien Flood, RD [address] [address] Morbid obesity with BMI of 45.0-49.9, adult (H) (Primary Dx); Pre-bariatric surgery nutrition evaluation Social History Tobacco Use Types Packs/Day Years [...] PM CDT Legal Sex Female 5:06 AM COMMERCIAL PROPERTY ADMINISTRATOR Gender Identity Female 04/04/2021 10:28 PM CDT Sexual Orientation Straight 04/04/2021 10 :28 PM CDT documented as of this encounter Patient Instructions * Patient Instructions* Hien Flood, ZEINAB - 06/26/2024 2:30 PM COMMERCIAL PROPERTY ADMINISTRATOR Diet Advancement Overview Bariatric 2-Week Pre-Surgery Liquid Diet 3 Protein Shakes per Day Cream of Wheat, Cream of Rice or Grits (plain), quinoa flakes Sugar-free pudding, unsweetened applesauce and low-sugar, non-fat Tamazight yogurt or Light yogurt Soups: beef/chicken and veggies, tomato soup and low-fat cream soups Bariatric Clear Liquid Diet: Day before Surgery and 1-2 Meals after Surgery Water, sugar-free clear liquid drinks, diluted fruit juice Sugar-free Jell-O, Sugar-free Popsicles Vegetable, chicken, or beef broth (regular or low-sodium) Sip ?? ounce every 3-5 minutes (Post Op) Bariatric Full Liquid Diet: First Week after Surgery (Duration: 1 Week RNY; 2 Weeks DS, LSG) Cream of Wheat, Cream of Rice or Quinoa flakes Sugar-free pudding, unsweetened applesauce, blended canned fruit in light juice or water Protein Shakes (see approved list) Light Yogurt or plain non-fat Tamazight yogurt (no fruit chunks: vanilla, lemon, etc.) Low-fat blended & strained soups Bariatric Pureed Diet: RNY Gastric Bypass & Lap Band: 2 week duration Duodenal Switch and Gastric Sleeve: 3 week duration Blended canned tuna, chicken, or salmon mixed with light howell/Tamazight yogurt Blended moist meats--lean ground turkey with spaghetti sauce and oregano, lean pork/beef/turkey/fish or baby food meats 1% cottage cheese or ricotta cheese, Fat free refried beans Thinned instant mashed potatoes (with added protein powder) Blended fruits and vegetables (avoid skins, peels, and membranes) Bariatric Soft Solids Tender or moist meat, poultry, fish Soft cooked vegetables Tuna, chicken, crab, or egg salad (made with plain Tamazight yogurt or light mayonnaise) Banana, seedless melons, canned or other soft fruits without skins/membranes Whole-grain crackers (ingredient listed with the word ???whole?? ) Bariatric Regular Diet: Avoid oatmeal, bread, rice, pasta, noodles, and white crackers (Saltines, Ritz, etc.) and foods with skins, peels, membranes, and seeds for 3 months after surgery. Skinless, boneless moist chicken and turkey breasts Pork loin, pork tenderloin--add pureed apricots/unsweetened applesauce for moisture 93%-96% lean beef (sirloin, round, flank, hamburger) Fresh or frozen fruits and veggies Toasted whole grain bread--sandwich thins, bagel thins, light wheat bread Brown/wild rice, quinoa, whole-grain crackers, etc. Recipe/Cookbook Resources Fresh Start Bariatric Cookbook by Celi Hedrick The Gastric Sleeve Bariatric Cookbook by Celi Hedrick The Complete Bariatric Cookbook and Meal Plan by Damaris Ho The Easy 5 Ingredient Bariatric Cookbook by Damaris Sheridan The High Protein Bariatric Cookbook by Clover Mary Bariatric Recipes Bariatric Recipes High Protein (bariatricmealMediaLifTVpOmniPV) Bariatric Foodie - Helping the WLS community play with their food! Bariatric Recipes -- My Bariatric Dietitian ERCIAL PROPERTY ADMINISTRATOR documented in this encounter Progress Notes * Hien Flood RD - 06/26/2024 2:30 PM CST Sofia Iyer is a 43 year old who is being evaluated via a billable video visit. How would you like to obtain your AVS? MyChart If the video visit is dropped, the invitation should be resent by: Text to cell phone: [phone] Will anyone else be joining your video visit? No Follow Up Surgical Weight Loss Supervised Diet Evaluation Assessment: Pt. is being seen today for a follow up RD nutritional evaluation. Pt. has been unsuccessful with non-surgical weight loss methods and is interested in bariatric surgery. Today we reviewed current eating habits and level of physical activity, and instructed on the changes that are required for successful bariatric outcomes. Surgery of interest per pt: VARSHA. Workflow review: Support Group: Completed - May Psychology:In progress follow up 06/28 Lab work:Completed. SWL:No Weight goal: At or below initial. Anthropometrics: Pt's weight is - Initial weight: 298 lbs Weight change: - BMI: 46.59 [place] body weight: 57 kg (125 lb 10.6 oz) Adjusted ideal body weight: 88.3 kg (194 lb 9.6 oz) Medical History: Patient Active Problem List Diagnosis Spondylarthrosis Sacroiliac joint pain Chronic low back pain Degenerative arthritis of cervical spine Anxiety associated with depression Overweight Muscular deconditioning Endometriosis Vaginal Pap smear Obesity (BMI 35.0-39.9) with comorbidity (H) Diabetes: A1C of 6.1% on 05/18/2024 Progress over past month: Patient has been using portion plates and measuring bowls from [employer] to help with her intake. Patient has been meal prepping and having foods on hand that will help her make healthier decisions. Patient has been on a bariatric Facebook group to get recipes. Patient got her sleep apnea machine - 5th night and she now feels like she sleeps better now. Patient has been following the bariatric nutrition guidelines. Instructions/Goals: Continue implementing bariatric surgery lifestyle modifications. Continue setting a timer when eating Mindful of when she is drinking fluids and fluids from meals Diet Recall/Time *acid reflux and avoids: spicy foods, citrus, tomato products, red meat 5 AM - Medications with a protein shake in the AM Breakfast (7:30 AM): yogurt (Yoplait) OR eggs Lunch (12 PM): chicken/salmon with vegetables (air fryer) OR salad Dinner: chicken/salmon with vegetable pasta dish OR vegetables (brussels spouts/broccoli/cauliflower) and a starch Typical Snacks: limited - protein shake - will use this in her Sabrina Creami Meal duration: 30+ minutes - patient has been mindful of chewing food to applesauce consistency. fluids by 30 minutes before, during meal, and waiting 30 minutes after meal before drinking fluids: Yes Beverages Water with SF flavoring - 80+ ounces/day No coffee intake, energy drinks (green tea sparkling energy drinks), sparkling water Limited milk intake Pop - cut out! Santiago Tea - cut out! Exercise Busy with her kids, cleaning out the house, walking outside, going to the gym to walk the track or treadmill PES statement: Morbid obesity related to excessive energy intake as evidenced by BMI 49.59 Intervention Nutrition Education: Provided general overview of diet and lifestyle modifications needed to be a deemed a safe candidate for bariatric surgery. Educated patient on how to read a food label: choosing foods with than 10 grams fat and 10 grams sugar per serving to avoid dumping syndrome. Dumping Syndrome: Described the mechanisms of syndrome, symptoms, and prevention tools from a dietary perspective. Vitamins: Educated on post-op vitamin regimen including MVI+ 18 mg Fe two times a day, calcium citrate 400-600 mg two times a day, 8627-2388 mcg sublingual B12 daily, 5000 IU vitamin D3 daily. Food/Nutrient Delivery: Educated patient on eating three meals, with cutting out snacking. Bariatric Plate: Patient and I discussed the importance of including a lean protein source (20-30 grams/meal), vegetables (included at lunch and dinner), one serving (15g) of carbohydrate, and limited added fat (1 tb/day) at each meal. Educated patient on how to complete a food journal and benefits of meal planning. Educated patient on using a protein powder drink as a meal replacement and/or supplement after bariatric surgery. Discussed importance of adequate hydration after surgery, with goal of at least 64 oz of fluids/day. Addressed avoiding all carbonated, caffeinated and sweetened drinks to prepare for bariatric surgery. Nutrition Counseling: Mindful eating techniques: Encouraged slow meal pace, chewing foods to applesauce consistency for 20-30 minutes/meal. Discussed fluids 30 minutes before, during, and after meal to prevent dumping syndrome and discomfort post bariatric surgery. Discussed pre/post operative diet progression, post op vitamin regimen, gave review of surgery process. Instructions/Goals: Continue implementing bariatric surgery lifestyle modifications. Handouts Provided: Bariatric Diet Advancement Bariatric Recipes/Cookbook Resources Monitor/Evaluation: Pt.???s target weight: no gain from initial visit, pt. verbalized understanding. Pt has completed all nutrition requirements and is well-informed of the dietary and physical activity requirements that are necessary for successful bariatric outcomes. This pt is an appropriate candidate for surgery from a nutrition standpoint at this time. The patient understands that surgery is a tool, not a cure, and post operative follow up is essential. Plan for next visit: Pre-op class with RD and RN Video-Visit Details Type of service: Video Visit Video Start Time (time video started): 2:26 PM Video End Time (time video stopped): 2:58 PM Originating Location (pt. Location): Home Distant Location (provider location): Off-site Mode of Communication: Video Conference via [facility] Physician has received verbal consent for a Video Visit from the patient? Yes Hien Flood RD ERCIAL PROPERTY ADMINISTRATOR documented in this encounter Plan of Treatment Upcoming Encounters Date Type Department Care Team (Late st Contact Info) Description 08/07/2024 10:50 AM COMMERCIAL PROPERTY ADMINISTRATOR Hospital Encounter [address] [address] Aris Thurman MD [address] [place] [address] 08/07/2024 10:50 AM COMMERCIAL PROPERTY ADMINISTRATOR - 08/07/2024 1:40 PM COMMERCIAL PROPERTY ADMINISTRATOR Surgery [address] [address] Aris Thurman MD [address] [place] [address] CREATION, GASTRIC BYPASS, SRIDHAR-EN-Y, LAPAROSCOPIC 08/15/2024 1:00 PM COMMERCIAL PROPERTY ADMINISTRATOR Virtual Visit [facility] [address] [address] 08/30/2024 12:30 PM COMMERCIAL PROPERTY ADMINISTRATOR Virtual Visit [facility] [address] [address] Aris Thurman MD [address] [place] [address], [place] [address] 09/08/2024 11:00 AM COMMERCIAL PROPERTY ADMINISTRATOR Virtual [facility] [address] 200 [place] [address] Betty Leonardo, RD 2945 [facility] 200 [place] [address] 11/06/2024 9:30 AM CDT Virtual Visit [facility] [address] [address] Dung Alva, PhD [employer] [facility] [address] [facility] 200 [place] [address] 11/07/2024 9:30 AM CDT Virtual Visit [facility] [address] 200 [place] [address] [address] 02/08/2025 1:30 PM CDT Office Visit [facility] [address] 200 [place] [address] Miriam Melton, FIELD SERVICE SPECIALIST SAP BI DEVELOPER [address] [place] [address] 05/09/2025 9:30 AM CDT Virtual Visit [facility] [address] 200 [place] [address] Hien Flood, ZEINAB [address] [address] 08/09/2025 1:30 PM COMMERCIAL PROPERTY ADMINISTRATOR Office Visit [facility] [place] [address] [place] [phone] Miriam Melton APRN SAP BI DEVELOPER [address] [place] [address] Scheduled Procedures Name Priority Associated Diagnoses Date/Ti me CREATION, GASTRIC BYPASS, SRIDHAR-EN-Y, LAPAROSCOPIC Morbid obesity (H) Duodenal stricture 08/07/2024 10:50 AM COMMERCIAL PROPERTY ADMINISTRATOR documented as of this encounter Visit Diagnoses Diagnosis Morbid obesity with BMI of 45.0-49.9, adult (H)- Primary Pre-bariatric surgery nutrition evaluation Dietary surveillance and counseling Morbid obesity (H) Morbid obesity Duodenal stricture Other obstruction of duodenum documented in this encounter Additional Health Concerns Assessment Noted Time PHQ-9 Depression Total Score: 2 05/07/20 21 11:37 AM CDT documented as of this encounter Care Teams Ship Wirer Relationship Specialty Start Date End Date Herson Rhodes MD PCP - General 06/02/11 [facility] [address] [place] [address] Assigned PCP 12/14/[address] [place] [address] Registered Dietitian Dietitian, Registered 06/09/24 Miriam Melton APRN SAP BI DEVELOPER [address] [place] [address] Assigned Surgical Provider 06/14/24 07/14/24 Dung Alva, PhD [employer] [facility] [address] [place] [address] [place] [address] Assigned Behavioral Health Provider 06/14/24 documented as of this encounter
--- OUTSIDE RECORDS SUMMARY | 2024-07-31 09:37 | XMS_ITS | Encounter Summary ---
Author Organization [facility] Address [address] [place] [address]. [place] [address] Care Team Providers Care Liturgical Music Director Name Role Phone Herson Rhodes MD Primary Care Provider [phone] [facility] Unavailabl e Hien Flood RD Unavailable [phone] Dung Alva PhD Unavailable Aris Thurman MD Unavailable Miriam Melton APRN DIRECTOR OF HEAD START Unavailable [phone] Encounter Details Date Type Department Care Team (Latest Contact Info) Description 07/19/2024 Travel Social History Tobacco Use Types Packs/Day [...] PM CDT Legal Sex Female 5:06 AM WAXED BAG MACHINE OPERATOR Gender Identity Female 04/04/2021 10:28 PM CDT Sexual Orientation Straight 04/04/2021 10 :28 PM CDT documented as of this encounter Plan of Treatment Upcoming Encounters Date Type Department Care Team (Late st Contact Info) Description 08/07/2024 10:50 AM WAXED BAG MACHINE OPERATOR Hospital Encounter [address] [address] Aris Thurman MD [address] [place] [address] 08/07/2024 10:50 AM WAXED BAG MACHINE OPERATOR - 08/07/2024 1:40 PM WAXED BAG MACHINE OPERATOR Surgery [address] [address] Aris Thurman MD [address] [place] [address] CREATION, GASTRIC BYPASS, SRIDHAR-EN-Y, LAPAROSCOPIC 08/15/2024 1:00 PM WAXED BAG MACHINE OPERATOR Virtual Visit [facility] [address] [address] 08/30/2024 12:30 PM WAXED BAG MACHINE OPERATOR Virtual Visit [facility] [address] [address] Aris Thurman MD [address] [place] [address] 09/08/2024 11:00 AM WAXED BAG MACHINE OPERATOR Virtual Visit [facility] [address] [address] Betty Leonardo, ZEINAB [address] [place] [address] 11/06/2024 9:30 AM CDT Virtual Visit [facility] [address] [address] Dung Alva, PhD [employer] AND [facility] [address] 200 [place] [id number] 11/07/2024 9:30 AM CDT Virtual Visit [facility] [address] 200 [place] [address]45 [facility] 200 [place] [address] 02/08/2025 1:30 PM CDT Office Visit [facility] and Bariatrics Care [address] 200 [place] [address] Miriam Melton APRN DIRECTOR OF HEAD START [address] [place] [address] 05/09/2025 9:30 AM CDT Virtual Visit [facility] and [facility] Care [address] 200 [place] [phone] [facility] 200 [place] [address] 08/09/2025 1:30 PM WAXED BAG MACHINE OPERATOR Office Visit [facility] Surgery [facility] and [facility]ariatrics Care [address] 200 [place] [phone] Miriam Melton APRN DIRECTOR OF HEAD START [address] [place] [address] Scheduled Procedures Name Priority Associated Diagnoses Date/Ti me CREATION, GASTRIC BYPASS, SRIDHAR-EN-Y, LAPAROSCOPIC Morbid obesity (H) Duodenal stricture 08/07/2024 10:50 AM WAXED BAG MACHINE OPERATOR documented as of this encounter Goals Goal [...] documented as of this encounter Care Teams Liturgical Music Director Relationship Specialty Start Date End Date Herson Rhodes MD PCP - General 06/02/11 [facility] [id number] [place] [address] Assigned PCP 12/14/[address] [place] [address] Registered Dietitian Dietitian, Registered 06/09/24 Dung Alva, PhD [employer] [address] [address] Assigned Behavioral Health Provider 06/14/24 Aris Thurman MD [address] [place] [address] Assigned Surgical Provider 07/15/24 Miriam Melton APRN DIRECTOR OF HEAD START [address] [place] [address] Nurse Practitioner Surgery 07/19/24 documented as of this encounter
--- OUTSIDE RECORDS SUMMARY | 2024-07-31 09:37 | XMS_ITS | Encounter Summary ---
Author Organization [facility] Address [address] [place] [address]. [place] [address] Care Team Providers Care Gang Rider Name Role Phone Herson Rhodes MD Primary Care Provider [facility] Unavailabl e Hien Flood RD Unavailable [phone] Dung Alva PhD Unavailable Aris Thurman MD Unavailable Miriam Melton APRN SPORTS BOOK WRITER Unavailable [phone] Encounter Details Date Type Department Care Team (Late st Contact Info) Description 07/17/[address] [facility] [address] [phone] Radha Brown Social History Tobacco Use Types [...] PM CDT Legal Sex Female 5:06 AM FEDERAL AIR MARSHAL Gender Identity Female 04/04/2021 10:28 PM CDT Sexual Orientation Straight 04/04/2021 10 :28 PM CDT documented as of this encounter Plan of Treatment Upcoming Encounters Date Type Department Care Team (Late st Contact Info) Description 08/07/2024 10:50 AM FEDERAL AIR MARSHAL Hospital Encounter [address] [address] Aris Thurman MD [address] [place] [address] 08/07/2024 10:50 AM FEDERAL AIR MARSHAL - 08/07/2024 1:40 PM FEDERAL AIR MARSHAL Surgery [address] [address] Aris Thurman MD [address] [place] [address] CREATION, GASTRIC BYPASS, SRIDHAR-EN-Y, LAPAROSCOPIC 08/15/2024 1:00 PM FEDERAL AIR MARSHAL Virtual Visit [facility] [address] [address] 08/30/2024 12:30 PM FEDERAL AIR MARSHAL Virtual Visit [facility] [address] [address] Aris Thurman MD [address] [place] [address] 09/08/2024 11:00 AM FEDERAL AIR MARSHAL Virtual Visit [facility] [address] [phone] Betty Leonardo, ZEINAB [address] [place] [address] 11/06/2024 9:30 AM CDT Virtual Visit [facility] [address] 200 [place] [address] Dung Alva, PhD [employer] [facility] [address] [facility] 200 [place] [address] 11/07/2024 9:30 AM CDT Virtual Visit [facility] [address] 200 [place] [address] [facility] 200 [place] [address] 02/08/2025 1:30 PM CDT Office Visit [facility] [address] 200 [place] [address] Miriam Melton, DEE SPORTS BOOK WRITER [address] [place] [address] 05/09/2025 9:30 AM CDT Virtual Visit [facility] [address] 200 [place] [address] Hien Flood, ZEINAB [address] [facility] 200 [place] [address] 08/09/2025 1:30 PM FEDERAL AIR MARSHAL Office Visit [facility] [address] [phone] Miriam Melton, DEE SPORTS BOOK WRITER [address] [place] [address] Scheduled Procedures Name Priority Associated Diagnoses Date/Ti me CREATION, GASTRIC BYPASS, SRIDHAR-EN-Y, LAPAROSCOPIC Morbid obesity (H) Duodenal stricture 08/07/2024 10:50 AM FEDERAL AIR MARSHAL documented as of this encounter Goals Goal [...] documented as of this encounter Care Teams Gang Rider Relationship Specialty Start Date End Date Herson Rhodes MD PCP - General 06/02/11 [facility] [id number] [place] [address] Assigned PCP 12/14/[address] [place] [address] 200 [place] [address] Registered Dietitian Dietitian, Registered 06/09/24 Dung Alva, PhD [employer] [address] [address] Assigned Behavioral Health Provider 06/14/24 Aris Thurman MD [address] [place] [address] 200 [place] [address] Assigned Surgical Provider 07/15/24 Miriam Melton APRN SPORTS BOOK WRITER [address] [place] [address] 200 [place] [address] Nurse Practitioner Surgery 07/19/24 documented as of this encounter
--- OUTSIDE RECORDS SUMMARY | 2024-07-31 09:37 | XMS_ITS | Encounter Summary ---
Author Organization [facility] Address [address] [place] [address]. [place] [address] Care Team Providers Care Marine Erector Name Role Phone Herson Rhodes MD Primary Care Provider [phone] [facility] Unavailabl e Hien Flood [address] Unavailable [phone] Dung Alva PhD Unavailable [phone] Aris Thurman MD Unavailable Miriam Melton APRN BUTTON BRADDER Unavailable [phone] Encounter Details Date Type Department Care Team (Late st Contact Info) Description 07/17/2024 MyC Medical Advice [facility] [address] [phone] Litzy Hall RN Social History Tobacco Use Types Packs/Day Years [...] PM CDT Legal Sex Female 5:06 AM PIT SHOVEL OPERATOR Gender Identity Female 04/04/2021 10:28 PM CDT Sexual Orientation Straight 04/04/2021 10 :28 PM CDT documented as of this encounter Plan of Treatment Upcoming Encounters Date Type Department Care Team (Late st Contact Info) Description 08/07/2024 10:50 AM PIT SHOVEL OPERATOR Hospital Encounter [address] [phone] Aris Thurman MD [address] [place] [address] 08/07/2024 10:50 AM PIT SHOVEL OPERATOR - 08/07/2024 1:40 PM PIT SHOVEL OPERATOR Surgery [address] [phone] Aris Thurman MD [address] [place] [id number] CREATION, GASTRIC BYPASS, SRIDHAR-EN-Y, LAPAROSCOPIC 08/15/2024 1:00 PM PIT SHOVEL OPERATOR Virtual Visit [facility] [address] [phone] 08/30/2024 12:30 PM PIT SHOVEL OPERATOR Virtual Visit [facility] [address] [phone] Aris Thurman MD [address] [place] [address] 09/08/2024 11:00 AM PIT SHOVEL OPERATOR Virtual Visit [facility] [address] [phone] Betty Leonardo, ZEINAB [address] [place] [address] 11/06/2024 9:30 AM CDT Virtual Visit [facility] Surgery Clinic and Bariatrics Care [address] [place] [phone] Dung Alva, PhD [employer] [facility] [address] [place] [address] 11/07/2024 9:30 AM CDT Virtual Visit [facility] [address] [place] [address] [facility] 200 [place] [address] 02/08/2025 1:30 PM CDT Office Visit [facility] Surgery [facility] and Bariatrics Care [address] [place] [address] Miriam Melton, DEE BUTTON BRADDER [address] [place] [address] 05/09/2025 9:30 AM CDT Virtual Visit [facility] [address] [place] [address] Hien Flood, ZEINAB [address] [facility] 200 [place] [address] 08/09/2025 1:30 PM PIT SHOVEL OPERATOR Office Visit [facility] [address] [place] [phone] Miriam Melton, DEE BUTTON BRADDER [address] [place] [address] Scheduled Procedures Name Priority Associated Diagnoses Date/Ti me CREATION, GASTRIC BYPASS, SRIHDAR-EN-Y, LAPAROSCOPIC Morbid obesity (H) Duodenal stricture 08/07/2024 10:50 AM PIT SHOVEL OPERATOR documented as of this encounter Goals [...] documented as of this encounter Care Teams Marine Erector Relationship Specialty Start Date End Date Herson Rhodes MD PCP - General 06/02/11 [facility] [id number] [place] [address] Assigned PCP 12/14/[address] [place] [address] Registered Dietitian Dietitian, Registered 06/09/24 Dung Alva, PhD [employer] [facility] [address] [address] Assigned Behavioral Health Provider 06/14/24 Aris Thurman MD [address] [place] [address] [address] [place] [address] Assigned Surgical Provider 07/15/24 Miriam Melton APRN BUTTON BRADDER [address] [place] [address] Nurse Practitioner Surgery 07/19/24 documented as of this encounter
--- OUTSIDE RECORDS SUMMARY | 2024-07-31 09:37 | XMS_ITS | Encounter Summary ---
Author Organization [facility] Address [address] [place] [address]. [place] [address] Care Team Providers Care Overnight Caregiver Name Role Phone Herson Rhodes MD Primary Care Provider [facility] Unavailabl e Hien Flood RD Unavailable [phone] Miriam Melton APRN HYDRO EXCAVATION OPERATOR Unavailable [phone] Dung Alva PhD Unavailable Aris Thurman MD Unavailable [phone] Miriam Melton APRN HYDRO EXCAVATION OPERATOR Unavailable [phone] Reason for Visit * Reason Onset Date Comments prep for surgery 06/28/2024 Encounter Details Date Type Department Care Team (Late st Contact Info) Description 06/28/2024 MyC Medical Advice [facility] Care [address] [phone] Litzy Hall, RN prep for surgery Social History Tobacco Use Types Packs/Day Years [...] PM CDT Legal Sex Female 5:06 AM PHARMACY PICKING TECH Gender Identity Female 04/04/2021 10:28 PM CDT Sexual Orientation Straight 04/04/2021 10 :28 PM CDT documented as of this encounter Plan of Treatment Upcoming Encounters Date Type Department Care Team (Late st Contact Info) Description 08/07/2024 10:50 AM PHARMACY PICKING TECH Hospital Encounter [address] [phone] Aris Thurman MD [address] [place] [address] 08/07/2024 10:50 AM PHARMACY PICKING TECH - 08/07/2024 1:40 PM PHARMACY PICKING TECH Surgery [address] [phone] Aris Thurman MD [address] [place] [id number] CREATION, GASTRIC BYPASS, SRIDHAR-EN-Y, LAPAROSCOPIC 08/15/2024 1:00 PM PHARMACY PICKING TECH Virtual Visit [facility] Bariatrics Care [address] [phone] 08/30/2024 12:30 PM PHARMACY PICKING TECH Virtual Visit [facility] [address] [place] [address] Aris Thurman MD [address] [place] [address] 09/08/2024 11:00 AM PHARMACY PICKING TECH Virtual Visit [facility] [address] [phone] Betty Leonardo, RD [address]45 [facility] 200 [place] [address] 11/06/2024 9:30 AM CDT Virtual Visit M [facility] Surgery Clinic and Bariatrics Care [address] [place] [address] Dung Alva, PhD [facility] [address] [place] [address] 11/07/2024 9:30 AM CDT Virtual Visit M [facility]ariatrics Care [address] 200 [place] [address] Hien Flood, RD [address]45 [facility] 200 [place] [address] 02/08/2025 1:30 PM CDT Office Visit [facility] [address] [place] [address] Miriam Melton APRN HYDRO EXCAVATION OPERATOR [address] [place] [address] 05/09/2025 9:30 AM CDT Virtual Visit [facility] [address] [place] [address] Hien Flood, RD [address] [facility] [address] [place] [address] 08/09/2025 1:30 PM PHARMACY PICKING TECH Office Visit [facility] [address] [place] [address] Miriam Melton APRN HYDRO EXCAVATION OPERATOR [address] [place] [address] Scheduled Procedures Name Priority Associated Diagnoses Date/Ti me CREATION, GASTRIC BYPASS, SRIDHAR-EN-Y, LAPAROSCOPIC Morbid obesity (H) Duodenal stricture 08/07/2024 10:50 AM PHARMACY PICKING TECH documented as of this encounter Visit Diagnoses Diagnosis History of tobacco use- Primary Personal history of tobacco use, presenting hazards to health Morbid obesity (H) Morbid obesity Duodenal stricture Other obstruction of duodenum documented in this encounter Additional Health Concerns Assessment Noted Time PHQ-9 Depression Total Score: 2 05/07/20 21 11:37 AM CDT documented as of this encounter Care Teams Overnight Caregiver Relationship Specialty Start Date End Date Herson Rhodes MD PCP - General 06/02/11 [facility] [id number] [place] [address] Assigned PCP 12/14/[address] [place] [address] Registered Dietitian Dietitian, Registered 06/09/24 Miriam Melton APRN HYDRO EXCAVATION OPERATOR [address] [place] [address] Assigned Surgical Provider 06/14/24 07/14/24 Dung Alva, PhD [facility] [address] [address] Assigned Behavioral Health Provider 06/14/24 Aris Thurman MD [address] [place] [address] Assigned Surgical Provider 07/15/24 Miriam Melton APRN [facility] [address] [address] Nurse Practitioner Surgery 07/19/24 documented as of this encounter
--- OUTSIDE RECORDS SUMMARY | 2024-07-31 09:37 | XMS_ITS | Encounter Summary ---
Author Organization [facility] Address [address] [place] [id number] Care Team Providers Care Java Software Engineer Name Role Phone Herson Rhodes MD Primary Care Provider [facility] Unavailabl e Hien Flood [address] Unavailable [phone] Dung Alva PhD Unavailable [phone] Aris Thurman MD Unavailable [phone] Miriam Melton APRN INSURANCE CLAIM REPRESENTATIVE Unavailable [phone] Reason for Referral * Diagnostic Imaging XR (Routine) - Pending Review Specialty Diagnoses / Procedures [facility]erred To Contact Radiology. Diagnoses Morbid obesity (H) Pre-op testing Procedures XR Chest 2 Views Miriam Melton APRN CNP [address] [facility] [address] [place] [address] Phone: tel: fax: Referral ID Status Reason Start Date Expiration Date V isits Requested Visits Authorized [id number] Pending Review 07/19/2024 07/19/2025 1 1 ANCE EDUCATION DIRECTOR * (Routine) - Pending Review Specialty Diagnoses / Procedures Referred By Contac t Referred To Contact Diagnoses Morbid obesity (H) Pre-op testing Procedures UA with Microscopic reflex to Culture Miriam Melton APRN CNP [address] [facility] [address] [place] [address] Phone: tel: fax: Referral ID Status Reason Start Date Expiration Date V isits Requested Visits Authorized [id number] Pending Review 07/19/2024 07/19/2025 1 1 ANCE EDUCATION DIRECTOR * (Routine) - Pending Review Specialty Diagnoses / Procedures Referred By Contac t Referred To Contact Diagnoses Morbid obesity (H) Pre-op testing Procedures Partial thromboplastin time Miriam Melton APRN CNP [address] [place] [address] [address] [place] [address] Phone: tel: fax: Referral ID Status Reason Start Date Expiration Date V isits Requested Visits Authorized [id number] Pending Review 07/19/2024 07/19/2025 1 1 ANCE EDUCATION DIRECTOR * (Routine) - Pending Review Specialty Diagnoses / Procedures Referred By Contac t Referred To Contact Diagnoses Morbid obesity (H) Pre-op testing Procedures INR Miriam Melton APRN CNP [address] [place], [place] [id number] Phone: tel: fax: Referral ID Status Reason Start Date Expiration Date V isits Requested Visits Authorized [id number] Pending Review 07/19/2024 07/19/2025 1 1 ANCE EDUCATION DIRECTOR * (Routine) - Pending Review Specialty Diagnoses / Procedures Referred By Contac t Referred To Contact Diagnoses Morbid obesity (H) Pre-op testing Procedures EKG 12-lead complete w/read - Clinics Miriam Melton APRN CNP [address] [place] [address] [address] [place] [address] Phone: tel: fax: Referral ID Status Reason Start Date Expiration Date V isits Requested Visits Authorized [id number] Pending Review 07/19/2024 07/19/2025 1 1 ANCE EDUCATION DIRECTOR * (Routine) - Pending Review Specialty Diagnoses / Procedures Referred By Contac t Referred To Contact Diagnoses Morbid obesity (H) Pre-op testing Procedures Comprehensive metabolic panel Miriam Melton APRN CNP [address] [place] [address] Phone: tel: fax: Referral ID Status Reason Start Date Expiration Date V isits Requested Visits Authorized [id number] Pending Review 07/19/2024 07/19/2025 1 1 ANCE EDUCATION DIRECTOR * (Routine) - Pending Review Specialty Diagnoses / Procedures Referred By Contac t Referred To Contact Diagnoses Morbid obesity (H) Pre-op testing Procedures CBC with Platelets & Differential Miriam Melton APRN CNP [address] [place] [address] Phone: tel: fax: Referral ID Status Reason Start Date Expiration Date V isits Requested Visits Authorized [id number] Pending Review 07/19/2024 07/19/2025 1 1 ANCE EDUCATION DIRECTOR Reason for Visit * Reason Comments Bariatric Pre-op Class Pt Ed Encounter Details Date Type Department Care Team (Latest Contact Info) Description 07/19/2024 12:30 PM DISTANCE EDUCATION DIRECTOR Allied Health/Nurse Visit [facility] [address] [id number] Bariatric (Pre-op Class/); Pt Ed Social History Tobacco Use Types Packs/Day Years [...] PM CDT Legal Sex Female 5:06 AM DISTANCE EDUCATION DIRECTOR Gender Identity Female 04/04/2021 10:28 PM CDT Sexual Orientation Straight 04/04/2021 10 :28 PM CDT documented as of this encounter Last Filed Vital Signs Vital Sign Reading Time Taken Comments Blood Pressure - - Pulse - - Temperature - - Respiratory Rate - - Oxygen Saturation - - Inhaled Oxygen Concentration - - Weight 133.8 kg (295 lb) 07/19/2024 2:41 PM DISTANCE EDUCATION DIRECTOR Height 165.1 cm (5' 5) 07/19/2024 2:41 PM DISTANCE EDUCATION DIRECTOR Body Mass Index 49.09 07/19/2024 2:41 PM DISTANCE EDUCATION DIRECTOR documented in this encounter Patient Instructions * Patient Instructions* Viktoriya Arce RN - 07/19/2024 12:30 PM DISTANCE EDUCATION DIRECTOR Patient name: Sofia Iyer Surgery: Sridhar-En-Y Gastric Bypass Surgery Date: 08/07/2024 Surgery Time: 10:50 am (*This time is just a tentative time and may end up changing.*) Arrival Time to Hospital: 8:50 am (two hours prior to surgery time) Surgeon: Aris Thurman MD MONTH BEFORE SURGERY Schedule and have Pre-operative History and Physical with your primary care in addition to the labs, CXR and EKG. These should be completed within a month of surgery and no closer than 5 days. ALL ofthe following tests must be completed per anesthesia and your surgeon prior to your surgery: Chest Xray EKG Complete Blood Count with Differential Complete Metabolic Panel INR APTT(PTT) Urine Analysis (UA) with Urine Culture if UA abnormal Hemaglobin A1c if hasn't been done in the last 3 months AND you are diabetic. Urine Cotinine with Metabolites if you quit smoking within the last 6 months. * COVID testing- is no longer required prior to your surgery. However, please let us know if you aren't feeling well or have tested positive for Covid-19 between now and your surgery date. Let us know if you have any questions regarding this. 2 WEEKS BEFORE SURGERY Start Preoperative Liquid Diet per dietitian instructions WEEK BEFORE SURGERY CHECKLIST Continue Full Liquid Diet per dietitian instructions 2. Purchase diet components for after surgery 3. Arrange for someone to stay with you the first 1-2 nights you return home. 4. Arrange for a ride home from the hospital. We can't give an exact time for fruit or nut picker because it depends on how you are doing with your drinking and pain control. Most people are reaching their goalsfor discharge by lunch time and you will need to have a ride ready and waiting by 11 am. 5. Do your grocery/vitamin shopping for before AND after surgery. 6. Make sure you have a bowel movement if you haven???t gone in a while. There is no need for a bowel prep before surgery. 7. Make sure you have picked up the prescriptions/supplements that were sent to your pharmacy - [address] [[id number]] NEW PRESCRIPTIONS: In preparation for surgery, we have prescribed some medication that you will need to fruit or nut picker as soon as possible A. Vitamins: Chewable Multivitamin and Vitamin B12 (if you weren't taking already) - You can start taking the Multivitamin and B12 as soon as you pick this up from the pharmacy. Some insurance companies will not cover the vitamins because they are available over the counter, so in those cases you will need to purchase them yourselves. Do not take the morning of surgery. B. Acid Neuro Ophthalmologist: Omeprazole (Prilosec) - If not already taking, you will get a prescription to start when you get home from the hospital. Tablets cannot be cut or crushed. If a capsule, entire capsule contents may be sprinkled on a spoonful of applesauce and taken immediately without chewing. If only on a full liquid diet, dump capsule contents into a spoonful of liquid and take without chewing. May swallow whole again starting 6 weeks after surgery but can try swallowing sooner if having issues with opening into food. Continue after surgery for at least 3 months even without symptoms of acidreflux. Do not take the morning of surgery. C. Gallstone Reduction: Actigall (if needed) - Start two weeks after surgery. Swallow whole with warm water, do not cut, crush, or open capsule up. This is a medication that will help to prevent gallstones from forming during the first 6 months post-op of rapid weight loss. BEFORE Surgery Medication Considerations: Certain medications may need to be stopped before major surgery. Some medications may increase yourrisk of bleeding, others may change the way your blood clots, and other medications can affect yourlab work. The bariatric clinic will give you specific instructions about when to stop these medications. This timeline shows when certain medications should be stopped before surgery: This is a general timeline, if your bariatric nurse or surgeon gives you other instructions, follow those specific instructions. 30 Days (One Month) Before Surgery control pills & patches that contain estrogen You must use alternative forms of contraception Hormone replacement therapy Premarin Testosterone 14 Days (Two Weeks) Before Surgery Appetite control medications Phentermine Other: Diuretics (???water pills?? ) Talk to your primary doctor. You may need an alternative medication, Hydrochlorothiazide (HCTZ) Furosemide (Lasix??) Bumetanide (Bumex??) Spironolactone (Aldactone??) Chlorthalidone Any blood pressure medication that is combined with a diuretic Herbal supplements Fish oil or Marceline 3 Homeopathic remedies 7 Days (One Week) Before Surgery Anti-platelet medications and medications that help to prevent blood clots: Clopidogrel (Plavix??), Prasugrel (Effient??), Ticagrelor (Brilinta??) Aspirin/Dipyridamole (Aggrenox??), Dipyridamole (Persantine??) Cilostazol (Pletal??) All Non-Steroidal Anti-Inflammatory Drugs (NSAIDs): Non-prescription: Ibuprofen (Advil??, Motrin??, Nuprin??), Naproxen (Naprosyn??, Aleve??, Anaprox??), Prescription: Piroxicam (Feldene??), Sulindac (Clinoril??), Tolmentin (Tolectin??), Celecoxib (Celebrex??), Diclofenac (Voltaren??), Indomethacin (Indocin??), Nambumetone (Relafen??), Flurbiprofen (Ansaid??), Ketoprofen (Orudis??), Etodolac (Lodine??), Meloxicam (Mobic??), Oxaprozin (Daypro??) Aspirin (including low-dose (81mg) and chewable ???baby aspirin?? ) Warfarin (Coumadin??, Jantoven??) When warfarin is restarted (usually 24-48 hrs after surgery), dosing and INR monitoring will be managed by the Bariatric Clinic for 4-6 weeks after your surgery date. The Day Before Surgery Diabetes medications: Follow the instructions on the ???Diabetes Management for the Bariatric Surgery Patient?? form. The Day of Surgery Diabetes medications: Follow the instructions on the ???Diabetes Management for the Bariatric Surgery Patient?? form. HOME MEDICATION RECOMMENDATIONS: Below you will see your specific medication instructions. Please share this information with your primary care so they can make adjustments to your medications if necessary. Baclofen (Brand Name: Lioresal) Ok to cut/crush. Celecoxib (Brand Name: Celebrex) Stop 7 days before date of surgery. Avoid completely after surgery. Check with primary doctor for alternative if needed. Cetirizine (Brand Name: Zyrtec) Ok to cut/crush. Do not take the morning of surgery. Doxazosin (Cardura) Okay to cut or crush the immediate release tablets. Do NOT crush or cut the extended-release form. Duloxetine (Brand Name: Cymbalta) Not recommended by wooden furniture polisher to open capsule. However, some patients have previously done this until able to swallow capsules whole (at 6 weeks after surgery). Check with your provider before doing this. If ok with your provider, you may open capsule and pour the medicine into a small amount of soft food. Stir this mixture well and swallow it without chewing immediately after mixing. This medication may not be absorbed as well after bariatric surgery. Watch for changes in symptom control. Talk with primary care or mental health provider if you notice any changes in how well this medicationis working after surgery. Ok to take as scheduled the morning of surgery with a sip of water. Estradiol Stop one month before surgery. May restart 30 days after surgery if ok with your surgeon. Be sure to use another (non-estrogen containing) form of control during this time. Fluticasone nasal spray (Brand Name: Flonase) Ok to use. You are encouraged to bring to the hospital on the day of surgery. Furosemide (Brand Name: Lasix) Stop taking 2 weeks before surgery. You will likely not go home on this medication after surgery for risk of dehydration. Please be in touch with us if you notice side effects of being off this medication. Lamotrigine (Brand Name: Lamictal) If small enough, swallow tablet whole. Ok to cut/crush if too large, but may taste bitter. This medication may not be absorbed as well after bariatric surgery. Check with prescribing provider if levels are needed after surgery to make sure you are absorbing the medication well. Watch for changes insymptom control and talk with your provider if you notice any changes in how well this medication is working. Take as directed the morning of surgery with a sip of water. Metoprolol succinate (Brand Name: Toprol XL) Ok to cut down score line only. Do not crush or cut further. Ask primary doctor how often to monitor your blood pressure after surgery, and if you need to change your dosage. *Take a.m. of surgery with a sip of water* Omeprazole (Brand Name: Prilosec) Tablets cannot be cut or crushed. If a capsule, entire capsule contents may be sprinkled on a spoonful of applesauce and taken immediately without chewing. If only on a full liquid diet, dump capsulecontents into a spoonful of liquid and take without chewing. May swallow whole again starting 6 weeks after surgery but can try swallowing sooner if having issues with opening into food. Continue after surgery for at least 3 months even without acid reflux. Pregabalin (Brand Name: Lyrica) May carefully open capsule and dump contents into a small amount of water or onto a spoonful of soft food when diet allows (try yogurt, applesauce or sugar free pudding). May swallow capsules whole again starting 6 weeks after surgery. Tirzepatide (Brand Name: Mounjaro, Zepbound) Stop taking this medication at least 1 week before surgery. Surgeon will determine if you will continue after surgery. Topiramate (Brand Name: Topamax) Tablet is not recommended to break, crush or chew because of the bitter taste. However, you may need to cut tablet and take with flavored water or juice to mask the bitter taste. If you have capsules, you can open the capsule and pour it into a teaspoonful of soft food (yogurt or applesauce). Swallow all of the food without chewing, and follow with a drink of water. Stop taking after surgery if using for appetite suppression. If so, begin to taper off of medication a week prior to surgery by cutting dosage in half. Packing for the Hospital When packing for the hospital, anticipate staying overnight. Make a checklist so that you don't forget things you really want to have with you. Bring a couple protein shakes with you to the hospital. This is especially necessary if you are dairy intolerant because they don't have what you would need available at the hospital. Bring a folder with your printed patient handouts to keep handy and add discharge paperwork to if you want. Bring your insurance card. Bring a current medication list OR update list in [place] [employer] (including vitamins, [id number]-fauexuq medication, eye drops, inhalers, patches, ointments and herbal products). Include the name, correct dose and the times you take them each day. List all allergies. If you use a CPAP or BIPAP, bring it with you. You may also want to bring a water bottle of the water you use in your machine. Bring a copy of your health care or advanced directive document if you have one. You may bring your own gown/pajamas and robe if you don't want to wear the hospital-supplied items once IV is disconnected. Slippers or shoes should have a non-slip sole. You may bring your own personal care items such as toothbrush, toothpaste, shampoo, denture cleanser, comb, skin care products, deodorant, make-up, and hair designer. If you wear a hearing aid, bring a labeled storage container and extra batteries. If you wear glasses or contacts, bring a labeled case and saline for contacts. Do not plan to wear contact lenses the day of surgery. It is best to bring your glasses so that you can wear them in therecovery room. You cannot wear contact lenses during surgery. Bring loose-fitting clothing to wear home. Bring telephone numbers (including work numbers) of family and friends. You may want to bring a journal to document your thoughts and feelings. You may not wear any jewelry on or in any area of your body to the operating room. Leave money, jewelry, or any valuables at home. DAY BEFORE SURGERY CHECKLIST Clear liquid diet until 4 hours prior to your surgery 2. Nothing to eat or drink 4 hours prior to your surgery time. 3. Pack a couple preferred protein shakes to have available in the hospital -See approved list of liquids from dietitian 4. Hibiclens or Exidine shower. Use a fresh, clean towel to dry off. See Showering Before Surgery handout below. MORNING OF SURGERY CHECKLIST Hibiclens or Exidine shower. Use a fresh, clean towel to dry off. See Showering Before Surgery handout below. 2. Remove all jewelry and piercings. 3. Take any medications you have been advised to take the morning of surgery with a sip of water. (See med list above) 4. Arrive 2 hours prior to your scheduled surgery time. Showering Before Surgery [email or web address] Preparing Your Skin [email or web address] HOSPITAL STAY Park in the [facility] Visitor Parking Lot in [place] and check in at the information desk where they will escort you to the [facility]. You will be allowed to have 2 support people with you in the pre-operative area at the hospital. After surgery on the recovery unit, you can have up to 4 visitors and they must leave when visitor hours are over. Meet your surgical team which includes an RN, APPEALS BOARD REFEREE, anesthesiologist and your surgeon. IV will be started for fluid management, pain medication and possible antibiotics. Anticoagulant therapy (blood thinner) will be given and continued until you are discharged. Pneumatic compression stockings will be placed on your legs before surgery to help prevent blood clots. You can also move your feet up and down frequently to aid in circulation. An incentive spirometer will be used to promote good lung expansion and prevent pneumonia. This must be within arm's reach of you, and you should be doing it ten times every hour while awake. PAIN MEDICATION IN THE HOSPITAL Treating pain and discomfort is important to your recovery. Your surgeon will order pain medicationfor you in the hospital. You will also get a take home prescription for pain medication after surgery. Our goal is not pain free, but an acceptable level of discomfort; you should be able to move without pain limiting your activity In the Preoperative area, you will receive additional pain treatment Intrathecal Spinae Block (Duramorph)- which is an ultrasound guided injection for pain medication Ketorolac (Toradol??) This is an anti-inflammatory medication used to treat swelling and moderate pain It is used only for 24 hours after surgery to decrease inflammation and pain Given through your IV Takes about 30 minutes to take effect Common side effects: nausea, upset stomach If your pain is not well controlled with this, you may be given a narcotic pain medication in addition to ketorolac In Recovery, you will receive additional IV pain medication as needed and then you will be switchedover to things you can take by mouth in preparation for going home. Fentanyl Hydromorphone (Dilaudid??) Common side effects: sleepiness, dizziness, upset stomach, constipation Narcotic medications can alter your judgment, coordination and reaction time. Do NOT drive or do anything that requires clear thinking and coordination until you have been completely off narcotic medications for at least 24 hours. Use only to treat moderate to severe pain. Ultram (Tramadol) This is a non-narcotic prescription pain medication used for moderate to severe pain if needed. Immediate release tablets can be cut or crushed. Tramadol can cause or worsen seizures. Your risk of seizures is higher if you're taking other certain medications. These drugs include other opioid pain drugs or certain medications for depression, other mood disorders, or psychosis. Tramadol oral tablet may cause drowsiness. You should not drive, use heavy machinery, or perform any dangerous activities until you know how this drug affects you. Acetaminophen (Tylenol) This will be giving by IV to start and then by mouth once you are ready Use for mild pain or discomfort Available without a prescription and comes in liquid, tablets, capsules and powder. The adult strength powder packs can be helpful right after surgery and can be found online. Maximum daily dosage: 3,000mg per 24 hours Works best as a scheduled dose for the first three days once you get home in addition to the gabapentin as the inflammation goes down Gabapentin Used together with the acetaminophen to provide pain relief. Can be taken every 8 hours as needed The medication works by calming the nerve cells that transmit pain signals to the brain. This is best in liquid form right after surgery but can have a unpleasant taste. * Important Reminder: Do NOT take NSAID or aspirin medications that are available without a prescription (examples: Ibuprofen, Motrin??, Advil??, Aleve??, Naproxen) OPERATING ROOM Hover Mat will be used to move you from one surface to another. Sae Hugger Gowns/Blankets are used to keep you warm. Urinary catheters are not usually needed. Surgery takes 45 minutes-3 hours depending on the procedure. *Remember: How you go to sleep tends to be how you wake up - so pleasant thoughts are important! RECOVERY ROOM The surgeon will give an update to your family or support people as you are on your way to the recovery room. You will wake up with a blood pressure cuff, oxygen and pulse monitor (pulse oximeter). Frequent vital signs. Pain Scale. HOSPITAL ROOM You will stay overnight on Patient Care Unit P2. You will have a private room. has been awarded an [employer] of Excellence partnered with the [employer] and has a proven track records for quality care and good outcomes. The staff has specialty training in the care of weight-loss surgery patients. WHAT TO EXPECT AFTER SURGERY You will start walking the day of surgery and continue several times a day, especially once you gethome. Drinking and eating will follow plan discussed with the dietitian. Shower in the hospital. Incentive Spirometer use and deep breathing/cough Splinting your incision and wearing the abdominal binder when moving may help with discomfort. Discharge the day after surgery is expected for laparoscopic procedures after you are seen by your surgeon, nurse practitioner or physician???s payroll and benefits assistant, anesthesia, and possibly a pharmacist. A nurse from the clinic will call you within 3 days after discharge. ONCE YOU ARE HOME CHECKLIST Continue your liquid intake daily and track Oral intake: 12-4pm 4pm-8pm 8pm-Midnight 6am-10am 2. Walks 12-4pm 4pm-8pm 8pm-Midnight 6am-10am 3. Incentive Spirometer/ Deep Breaths and Coughing ACTIVITY AFTER SURGERY Walking several times a day, increasing endurance and energy level over time. No lifting over 20 lbs. for the first 2 weeks (6 weeks for open procedure) and then let your body be your guide. Can be the ???project management advisor?? in terms of chores at home. Pushing and pulling uses the same core muscles and those activities may cause pain or discomfort. Do each exercise 10-15 times, twice a day and increase weight when you can consistently do 12 repetitions of activity. No swimming, bathing, or hot tub use until incisions are completely healed (scars). Do not plan to fly or take a road trip within 1 to 3 months after surgery. See handouts below for exercises that can be done after surgery. Seated Exercises for Arms and Legs (can be done before or after surgery) [email or web address] Exercise Guidelines after Weight Loss Surgery (1st 4-6 weeks) [email or web address] Exercises after Weight Loss Surgery (strengthening, when no weight lifting restrictions - after 4-6weeks) [email or web address] MEDICATIONS AFTER SURGERY Here is a simple graph that might help makes things more clear for when to start certain medications after surgery. (Zofran, Tylenol, Gabapentin and Hyoscyamine will be sent home with you from the hospital as needed) Medication Dose When to Start Vitamin B12 1000 mcg Once a day under the tongue (sublingual), weekly nasal spray, or monthly injections Day after surgery Chewable Multivitamin with 18 mg Iron (Must also contain Vitamin A and Zinc) NO GUMMIES 1 tablet twice daily Day after surgery Omeprazole 20 mg 1 capsule daily - open and sprinkle on food or swallow with fluid Day after surgery. Take even if no acid reflux symptoms. Zofran 4 mg (if ordered) 4mg tablet every 8 hours as needed for nausea As needed after surgery Tylenol 1000 mg every 6 hours for three days after surgery. After first three days after surgery, switch to as needed and do not take more than 3000mg daily Once you get home (you will be sent home from the hospital with this) Hyoscyamine (if ordered) 0.125 mg tablet every 4 hours as needed for stomach spasm pain As needed after surgery Liquid Gabapentin Must be kept in fridge 250 mg liquid 3 times a day for at least 3 days after surgery Once you get home (you will be sent home from the hospital with this) Actigall (Ursodiol)- 300 mg for gallbladder if you still have Twice daily - swallow whole with warmwater Two weeks after surgery Chewable Calcium Citrate 2 tablets twice daily Three weeks after surgery Vitamin D - (125 mcg) 5000 units 1 daily Three weeks after surgery LIFELONG VITAMINS: First 3 Months after Surgery Choose chewable, liquid or crushable forms of Multivitamin and Calcium Citrate and then you can switch to tablets you can swallow whole if you would like. 1.) Sublingual Vitamin B12: Take 0342-7123 mcg 1 time daily Also available in injectable form monthly. Discuss with provider if interested. 2.) Multivitamin with Iron: Take 1 multivitamin 2 times daily Needs 18 mg of IRON per dose along with Vitamin A and Zinc in them Generic Children's Chewable multivitamin with iron (Equate, Up & Up brand, etc.) Centrum?? Chewable Centrum, Women's One-A-Day or Generic (after 3 months) NO GUMMY Vitamins (these do not contain iron) 3.) Calcium Citrate with Vitamin D: Take 400-600 mg 2 times daily (Start 3 weeks after surgery) Bariatric Advantage: Citrate Lozenges (500mg)--2 Daily, or Chewy Bites (250 mg)--4 Daily www.Delver.Loot! or Celebrate Calcium: Calcium Plus 500 (500mg)--2 Daily, or Calcet Creamy Bites (500 mg)--2 Daily, or Calcium Citrate Chews (250mg) - 4 Daily www.S[employer] or UNJURY Opurity: Calcium Citrate Plus (300mg)--3 Daily www.[employer] or Up-Brody D: Nutrition Direct: Flavorless Calcium Powder (500 mg with 250 IU Vitamin D) www.[employer] or --3 Scoops Daily Wellesse Liquid Calcium Citrate--1 Tbsp. (500 mg)--2 Times Daily [employer] After 3 months post op: Citracal Petites (or Generic version) (200mg) - 4 daily Any grocery store or Pharmacy 4.) Vitamin D3 : Take 5000 IU Daily (Start 3 weeks after surgery) This can remain a small gel cap AFTER Surgery Medication Considerations: The 3 main ideas: Cut or crush all meds for 6 weeks after surgery Long acting medications are not the best option anymore Avoid NSAID medications for the rest of your life 1. Cutting or crushing meds: Before surgery, tablet size does not matter. After surgery there will be swelling around your new stomach pouch or sleeve. Therefore, it is important to limit the size of medications for the first six weeks after surgery. What this means for you: For the first six weeks after surgery, you will need to cut or crush tablets that are larger than ?? inch (about the size of an eraser on a standard pencil) Some capsules may be opened and the contents sprinkled onto soft food. Once sprinkled on food, eat immediately being careful not to chew. You will be given a pill cutter at the hospital Refer to your medication list. This list will tell you which medications can be cut or crushed, andwhich capsules can be opened. * Important Reminder: Discuss ALL of your medications with your primary care provider. Your pre-op history and physical appointment is a good time to review your current medications. 2. Long acting medications are not the best option anymore Many types of bariatric surgery involve removing a portion of the small intestine. Long acting or extended release medications release slowly throughout the entire small intestine. Because your surgery has changed your stomach and/or intestine, you may not get the full effect of the long acting medication. Short acting medications may work better for you after surgery. Talk with your doctor at your pre-op history and physical appointment if you are taking long acting medications. Your doctor can change prescriptions for long acting medications to short acting. 3. Avoid NSAIDs for the rest of your life NSAIDs are Non-Steroidal Anti-Inflammatory Drugs The NSAID class of medications is used to relieve minor aches, pains or to treat fever. They are commonly used to treat pain caused by a cold, flu, sore throat, headache, and arthritis. Some NSAIDs are available ofxr-oir-yhcebfq while others need a prescription from your doctor. NSAIDs should be avoided after bariatric surgery because they can cause stomach ulcers, scarring orbleeding. You will not be able to take any NSAID mediation for the rest of your life after bariatric surgery. Below is a list of common NSAID medications: [id number] NSAIDs Ibuprofen - Brand names Advil ?? , Motrin ??, Nuprin ?? Naproxen - Brand names Aleve ??, Naprosyn ??, Anaprox ?? PRESCRIPTION NSAIDs Celebrex ?? (Celecoxib) Orudis ?? (Ketoprofen) Mobic ?? (Meloxicam) Lodine ?? (Etodolac) Voltaren?? (Diclofenac) Ansaid ?? (Flurbiprofen) Relafen ?? Nabumetone Clinoril ?? (Sulindac) Feldene ?? (Piroxicam) Tolectin ?? Tolmentin Indocin ?? (Indomethacin) Daypro?? (Oxaprozin) After surgery, the only safe non-prescription pain reliever is acetaminophen (Tylenol??). Acetaminophen is available in 325mg and 500mg tablets. If acetaminophen does not control your pain, [facility] to discuss other options. 4. Other medications you may have to avoid Aspirin Do not use aspirin for headaches, body aches, or muscle aches after bariatric surgery. This is because aspirin can also cause stomach ulcers. However, your primary care provider may tell you to take aspirin for certain conditions. A maximum of 81mg of enteric coated aspirin (ex: Ecotrin??) once daily is usually okay to take if directed to take aspirin by your primary care doctor. Be sure to take with food or milk. Alendronate (Fosamax??), risedronate (Actonel??) (risedronate), ibandronate (Boniva??): These are common osteoporosis medications that can cause erosions or ulcers in the esophagus and stomach. Remind your primary care provider that you have had bariatric surgery and discuss other medication options. Diuretics (???water pills?? ) These medications are used to treat high blood pressure. They can also reduce swelling and water retention caused by various medical conditions. Diuretics should not be used for patients who are having weight loss surgery. Your diuretic will not be restarted immediately after surgery. This is because it is often difficult to drink enough fluids after surgery to keep up with the fluid loss caused by the diuretic/?? water pill?? . Call your primary care provider to discuss alternative medicationsto treat high blood pressure. 5. Medications for chronic conditions It is likely that the need for some of your medications will change after weight loss surgery. High Blood Pressure Medications As you lose weight, your blood pressure may change. Talk with your primary care provider about how to manage your high blood pressure after surgery. You may need the dose of your blood pressure medication(s) adjusted. Keep track of your blood pressure, and call your primary doctor if you have low blood pressure symptoms, such as: dizziness, faintness, weakness, light- headedness (especially when going from sitting to standing) Diabetes Medications As you lose weight, your blood sugars may change. Talk with your primary care provider about how tomonitor and manage your diabetes after surgery. You may need the dose of your diabetes medication(s) adjusted. Call your primary doctor if you have any of these symptoms. Keep track of your blood sugars, and call your primary doctor if you have low blood sugar symptoms,such as: sweating, shaking, nervousness, headache, light- headedness, dizziness, weakness, or fainting 6. Other information Medication Absorption Some medications may not be absorbed as well after bariatric surgery. Watch for changes in symptoms. It is important to discuss your medications with your doctor if you think your medications are not working as well as they were before. You may need to have medication doses adjusted. Ursodiol (Actigall??) With rapid weight loss, your risk of gallstones increases. If your still have your gallbladder after surgery, you will be given a prescription for Actigall?? that you should begin taking 2 weeks after surgery. Actigall?? will help prevent gallstones from forming. If you are prescribed this medication, you will usually take it for six months. We encourage you to take this tablet or capsule whole with warm or hot liquid to help it dissolve before it reaches your stomach pouch. This is medication is bigger than the ?? inch size restriction, but we will not have you cut/crush it due to it's unpleasant metallic taste. A pharmacist will speak with you more about this medication if it is ordered after surgery. Common Side Effects: constipation, diarrhea, upset stomach, nausea, dizziness Non-prescription medications: You may need medication for seasonal allergies, colds, headaches, or minor aches and pains. It is important to read the package label carefully. Below are some helpful hints for choosing the right medication: Look at the active ingredient(s) list to be sure the medication does not contain caffeine, NSAIDs or aspirin (maximum aspirin dose: 81 mg daily). Avoid long-acting medication options. Immediate release medications may work better because they are absorbed better. It is okay to use liquid medications with the following cautions: Watch the sugar concentration. High sugar content in medications could cause dumping syndrome. Diluting the liquid medication with an equal amount of water will help prevent dumping syndrome. Do not use products that contain high fructose corn syrup, corn syrup, sugar, or sorbitol. Look forsugar-free products as an alternative. Chewable tablets or tablets that dissolve on your tongue (???oral-dissolving tablet?? ) are generally safe to use. Supplements Refer to the Vitamins & Supplements Handout provided to you by the Bariatric Dietitian for recommended doses and products. After Bariatric Surgery Discharge Instructions [facility] Comprehensive Weight Management Note: Ask your nurse to order your medications from the pharmacy. Be sure you have your medicationswith you when you leave. What should my diet be for the first 2 weeks after surgery? Follow the bariatric diet the dietitian discussed with you. How much fluid should I drink? Strive for 48-64 ounces daily. Carry a water bottle with you without a straw or sports top. Drink from it often. Keep track of how much fluid you drink in a day. Remember: -Do not use straws, chew gum or suck on hard candies. They may cause painful gas. -Sip, don't slurp when you drink. -Practice small sips using a medicine cup for the first week postop. -No ice or cold drinks. This could cause gas or spasms. -No coffee, soda pop or drinks with caffeine. These may cause stomach pain. -No alcohol. It is bad for your liver and will cause stomach pain. How often should I do my deep breathing and coughing? Use your incentive spirometer (small plastic breathing device) every hour while awake after you gethome. Using the incentive spirometer helps you deep breath. Continuing to cough and deep breath will help prevent fevers and pneumonia. If you do not have a fever after one week, you can stop using the incentive spirometer and discard it. You can continue to take deep breaths without the incentive spirometer every one to two hours whileawake for the month after surgery. What kinds of activity can I do? Get plenty of rest the first few days after surgery and try to balance rest and activity. You will need some time to recover - you may be more tired than you realize at first. You'll feel better and heal faster if you take good care of yourself. For 2 weeks after surgery (Please review restrictions at your two week visit, they could change based on how well you are doing): -Don't lift more than 20 pounds. -Take 4-5 short walks every day. -Don't jog, run, or do belly exercises. Don't swim, bathe or use a hot tub until your cuts are healed (scabs are gone). You may shower right away after surgery. Don't plan to fly or take a road trip within the first 1 to 3 months after surgery. You could get ablood clot in your legs. If you must travel, get up and move around every hour for at least 5 minutes before continuing on your journey. Your care team can help you decide when it's safe for you to travel. What can I do for pain control? You had major belly surgery that involves all layers of your belly muscles. Pain is expected, even for some as far out as 6-8 weeks after surgery. Moving, sneezing, coughing, and breathing will causediscomfort because these activities use your belly muscles. Please see your after visit summary medication review for what pain medication will be continued, discontinued and newly started for you. You can take opioid pain medicine if prescribed and if needed. Try to wean off from it as soon as you feel comfortable. Do not drive while you are taking opioid pain medicine. This is dangerous. The first three days after surgery, take your acetaminophen (Tylenol) scheduled every 6 hours. After that you can take it as needed. -Acetaminophen formulation options: -Liquid -Caplet (Cut caplet in half before taking) -We will have you on a higher dose of Tylenol for the first three days post-op but then but then you should not exceed 3000mg per day. -You will also take Tylenol for pain in place of the opioid pain medicine (check with your care team for specifics). You can apply ice or heat to the affected area(s). Just remember to wrap the ice in something and limit icing sessions to 20 minutes. Excessive icing can irritate the skin or cause skin damage. You can apply heat with a hot, wet towel or heating pad. Just like cold therapy, limit heat application to 20 minutes. Never sleep with a heating pad on. It could cause severe florez to your skin. Wear your binder to support your belly muscles if you have one. Take this off a little more each day and try to be off completely by 2 weeks after surgery. If you don't need your binder for comfort or support, you don't need to wear it. You may not be able to sleep in a comfortable position for a few weeks after surgery. This is normal. You may be more comfortable sleeping in a recliner or propped up with 3 pillows for the first couple of weeks after surgery. You may feel gas pains in the upper chest or between your shoulder blades from the laparoscopic surgery which should get better with walking around, warm/cold packs and pain medication. Do not take NSAID's (Non-Steroidal Anti-Inflammatory Drugs) (examples: ibuprofen, Motrin, Advil, Aleve, and Naproxen), aspirin, or use pain patches with NSAID's. They will increase your risk of bleeding or getting an ulcer. Please call the clinic for any of the following pain concerns, we would like to talk to you: -pain that does not improve with rest -pain that gets worse and worse -pain that is not controlled by your pain medicine -a sudden severe increase in pain What medications will I need to take after surgery? You may be discharged with the following types of medications: antacids, pain medications, anti-nausea medications, etc. Please see your after visit summary medication review for what will be continued, discontinued and newly started. It is important to reduce the amount of acid in your new stomach for a couple of months after surgery while it is still healing. We will prescribe an acid conveyor line battery charger or antacid. Take it as directed. This will help prevent ulcers, heartburn and acid reflux. If you took an acid conveyor line battery charger before you had surgery, your care team will let you know what acid conveyor line battery charger you will take after surgery. It is okay to swallow any medications smaller than ?? inch in size. -If it is larger than ?? inch, it may need to be cut, crushed, or in a liquid form. See the above medication section for what is most appropriate for you and your medications. What should I know about my incisions (cuts)? Your incisions are covered with white steri strips or butterfly tape and have band aids or gauze over the top. If you have gauze or band aids, they can come off in the hospital. Leave your steri strips on until they fall off on their own. If the steri strips don't fall off after 1 week, you can take them off. If they fall off earlier, replace them with clean band aids tryingto avoid touching the incision itself. If you have gauze covered by a clear dressing, remove 2-3 days after surgery or as directed by yourcare team. You may shower in the hospital after surgery and can get your incision coverings wet. Do not submerge in water (e.g. No baths, swimming pools, hot tubs) until your incisions are completely healed (scabs are gone). Call the clinic if you have any of these signs or symptoms of infection: -Redness around the site. -Drainage that smells bad. -Drainage that is thick yellow or green. -An increase in pain around the incision site -An increase in swelling around the incision site -Heat or warmth around incision site -Fever of 101.5?? F (38.3?? C) or higher when taken under the tongue. -Chills Will my urine or bowel movements change? Your first bowel movements (stools) will likely be liquid. You may also notice old blood or a darker color (black or maroon color) in your bowel movements. This is not unusual and usually goes away after the first week, if not sooner. You may not have a bowel movement for a week. If you have not had a bowel movement for at least three days after your surgery date and are passing gas, you can use over the counter stool softeners. Please stop taking the stool softeners and laxatives if your stools are loose. Increasing fluids and activity as well as getting off narcotics will help prevent constipation. Call the clinic if: -You have stomach pain. -You continue to have constipation. -You have excessive bloating after walking and passing gas. -You are having 3 or more loose stools a day. You may have an infection that we need to treat. How can I prevent dehydration if I feel nauseated (sick to my stomach) and vomit (throw up)? Vomiting is not normal after surgery. If you continue to have nausea and vomiting, call the clinic. Nausea can be a sign of dehydration. That is why it is very important to track your fluids. Do not nap more than one hour during the day. Set a timer to wake yourself up, if needed. Too much sleep will keep you from drinking enough fluid during the day and lead to dehydration. No outside activity in hot, humid weather until you can drink 48 to 64 ounces of fluid in 24 hours.If you sweat a lot, your body may lose too much water. If having difficulty getting in your fluids, try to take a 1 ounce sip of water (one medicine cup) every 15 minutes. Set a timer to remind yourself. If you notice any of the following symptoms, please don't delay in calling the clinic. Early identification gives us more options for treatment: -Dark colored urine -Urinating (pass water) less than 2-3 times per day -Lack of energy -Nausea -Dizziness -Headache -Metallic taste in your mouth Call the clinic ANY TIME at [phone] if: -Your pain medicine is not working. -You have a fever ? 101.5 F. -You have belly or left shoulder pain that gets worse and worse. -You have a swollen leg with redness, warmth, or pain behind the knee or calf. -You have chest pain -You feel very short of breath. -You have a sudden severe increase in heart rate. -You have vomiting that gets worse and worse. -You have constant nausea (feeling sick to your stomach) that does not go away with medication. -You have trouble swallowing. -You have an increasing feeling that something is not right. -You have hiccups that do not stop. -You have any questions or concerns. If you have to go to the Emergency Room, we prefer you go to the hospital that did your surgery. Please let them know that you had bariatric surgery and to notify your surgeon. When should I go back to the clinic? Follow up with your care team in 1 week. If this appointment was not already made, please call: [phone] IMPORTANT PHONE NUMBERS: Bariatric Nurse line (M-F 8am to 4:30pm)=[phone] Main line (after hours/holidays/weekends)=[phone] These are some additional handouts that are very important to read through and use after surgery. They are good tools for after your surgery as you recover. After Your Weight Loss Surgery [email or web address] Mindfulness Meditation [email or web address] Conscious Breathing [email or web address] Keeping Track of Your Fluids (for after surgery) [email or web address] AFTER SURGERY APPOINTMENT SCHEDULE 1 week with Dietitian (ZEINAB) Dietitian Virtual Group Class scheduled for Wednesday08/15/2024 from 1-2 pm with one of the dietitians. She will send you an email invitation to join the week of this class and the purpose of it is tocheck in with you and give you the next set of dietary instructions. It will be using [employer], NOT in person or through [employer]. 2 weeks with Surgeon Surgeon video follow-up visit that will be done through [employer] which is already scheduled for you. [address] 3 months with Psychologist 6 months with Bariatrician with labs [address] 12 months with Bariatrician with labs [address] or Bariatrician-possible labs Annually after that with Bariatrician with labs and RD if needed POP QUIZ 1. How long do you need to be on full liquids after surgery? 2. Name the 4 vitamin/mineral supplements you???ll need to take for the rest of your life. 3. How many grams of protein should you get in a day? 4. Which meal would give you the most protein? a. 1 oz. Cheese on 1 saltine cracker and 3 Tbsp applesauce. b. ?? cup mashed potatoes and gravy with 2 Tablespoons applesauce c. 3 Reduced Fat Wheat Thins, 1 oz. green beans, and 2 peeled grapes 5. Concentrated urine, lack of energy, nausea, dizziness, headache, and a bad taste in your mouth are signs of: a. Dumping b. Dehydration c. Clogging d. None of the above 6. What is the minimum amount of time recommended for exercise? a. 30 minutes 7 days a week b. 30 minutes 3 days per week c. 1 hour 5 days per week d. None of the above 7. Drinking liquids with meals can cause: a. Vomiting b. Weight gain c. Desire to Snack d. All of the above 8. The long-term success of my weight loss surgery depends on: a. Me b. My Surgeon c. My Support Group d. My Family 9. If you receive ice, carbonation or straws in the hospital post-op, you should: a. Eat and drink whatever is given to you by the hospital staff b. Remind the hospital staff you are not to have ice, straws or carbonation. c. Take the ice but not the carbonation or straws d. Call 911 10. Name two possible complications after bariatric surgery: 11. Name two habits of healthy bariatric surgery patients: True or False 12. This operation for obesity will require routine visits with my surgeon for the first year, and then I will be okay on my own once I lose my weight and change my diet. 13. Obesity is a disease that can be managed with a variety of tools. However, some individuals fail to lose weight or regain their weight because they resume snacking, binging, take in high fat or carbohydrate food & lack sufficient liquids and exercise. 14. Women should avoid becoming for at least 18 months to 2 years following bariatric surgery. 15. I can still drink 2-3 cans of soda or carbonated juices, water or other beverages after my surgery, as long as it is in moderation. 16. Re-operation is sometimes necessary due to bleeding, hernias, ulceration, breakdown of stitchesor maximiliano, leakage and blockage of the intestines. 17. I should call the clinic if I develop increased redness or swelling in or around my incision, an oral temperature of 101.5 or greater, increasing severe abdominal or shoulder pain, increasing heart rate or anytime I just don???t feel right. 18. Gaining weight prior to surgery is dangerous because it can enlarge the liver, increase surgical risk and extend your recovery period. 19. Once I lose my weight, I can drink alcohol as long as it is in moderation. 20. It is possible I will have more emotional difficulties after surgery. 21. I can take Aleve but not Ibuprofen or Aspirin after surgery. 22. If I eat yogurt and drink milk daily, I don???t have to take the recommended dose of calcium supplements 23. Dumping Syndrome only occurs in gastric sleeve patients. 24. It is possible you will gain weight or not lose much weight immediately after surgery. We wish you the best and please let us know if you have any questions or concerns! Litzy Hall RN and Viktoriya Arce RN [facility]ariat[facility] [address] [facility], [address] ANCE EDUCATION DIRECTOR documented in this encounter Progress Notes * Viktoriya Arce RN - 07/19/2024 12:30 PM CSTSummary: Pre-op Class Patient attended group class to review pre-op instructions for upcoming surgery. Discussed admission process, COVID restrictions and hospital course. Pharmacy information packet given and explained. Patient was given exercises to work on post-op for maintaining muscle mass and strengthening. Bariatric quiz reviewed in class. Discharge instructions and follow up appointments given and reviewed with pt at this time and patient verbalized understanding. She will have her H&P at [facility] on 07/31/2024 with Herson Rhodes MD and do her pre-op testing at that visit. Orders faxed to [phone] as well as handed to pt in class. Prescriptions for Actigall and vitamins sent to the patient's pharmacy to be started after surgery. Viktoriya Arce RN, CBN [facility] P [phone] F [phone] ANCE EDUCATION DIRECTOR * Betty Leonardo RD - 07/19/2024 12:30 PM CST Pt attended the pre-surgery class for bariatric surgery class and was educated on the pre and post surgery liquid diets. Patient received information via [employer] for the pre-op liquid diet and the post-op liquid diet. Discussed appropriate liquids and discussed portions. Reviewed appropriate calories, protein, and fluid goals for each stage before and after surgery. Educated on correct vitamins/minerals, dosage, and frequency to take after surgery. Provided grocery list and sample menu plan foreach diet stage. Pt will begin pre-op liquid diet 07/24/2024 and will do clear liquids the day before surgery. Pt isscheduled for RYGB on 08/07/2024 and will then follow 1 week post-op liquid diet. Pt will follow upwith RD 1-week post-op for education on the pureed and soft/regular diet stages. Betty Leonardo RD ANCE EDUCATION DIRECTOR documented in this encounter Plan of Treatment Upcoming Encounters Date Type Department Care Team (Late st Contact Info) Description 08/07/2024 10:50 AM DISTANCE EDUCATION DIRECTOR Hospital Encounter [address] [address] Aris Thurman MD [address] [place] [address] 08/07/2024 10:50 AM DISTANCE EDUCATION DIRECTOR - 08/07/2024 1:40 PM DISTANCE EDUCATION DIRECTOR Surgery [address] [address] Aris Thurman MD [address] [place] [address] CREATION, GASTRIC BYPASS, SRIDHAR-EN-Y, LAPAROSCOPIC 08/15/2024 1:00 PM DISTANCE EDUCATION DIRECTOR Virtual Visit [facility] and Bariatrics Care [address] [address] 08/30/2024 12:30 PM DISTANCE EDUCATION DIRECTOR Virtual Visit [facility] Surgery Clinic and Bariatrics Care [address] [place] [address] Aris Thurman MD [address] [facility] 200 [place] [address] 09/08/2024 11:00 AM DISTANCE EDUCATION DIRECTOR Virtual Visit [facility] Surgery Clinic and Bariatrics Care [address] [place] [address] Betty Leonardo, RD [address] [facility] 200 [place] [address] 11/06/2024 9:30 AM CDT Virtual Visit [facility] Clinic and Bariatrics Care [address] [place] [address] Dung Alva, PhD [employer] [employer] [facility] [address] [facility] 200 [place] [address] 11/07/2024 9:30 AM CDT Virtual Visit [facility] and [facility]ariatrics Care [address] [place] [address] Hien Flood, RD [address] [facility] 200 [place] [address] 02/08/2025 1:30 PM CDT Office Visit [facility] and [facility] Care [address] [place] [phone] Miriam Melton, DEE INSURANCE CLAIM REPRESENTATIVE [address] [place] [address] [address] [place] [address] 05/09/2025 9:30 AM CDT Virtual Visit [facility] Surgery Clinic and Bariatrics Care [place] [address] [facility] 200 [place] [phone] Hien Flood, ZEINAB [address] [facility] [address] [place] [address] 08/09/2025 1:30 PM DISTANCE EDUCATION DIRECTOR Office Visit [facility] Clinic and Bariatrics Care [place] [address] [facility] 200 [place] [phone] Miriam Melton, SCRAP BREAKER INSURANCE CLAIM REPRESENTATIVE [address] [facility] 200 [place], [place] [id number] Scheduled Orders Name Type Priority Associated Diagnoses Orde r Schedule CBC with Platelets & Differential Lab Panel Routine Morbid obesity (H) Pre-op testing Expected: 07/31/2024 (Approximate), Expires: 07/19/2025 Comprehensive metabolic panel Lab Routine Morbid obesity (H) Pre-op testing Expected: 07/31/2024 (Approximate), Expires: 07/19/2025 EKG 12-lead complete w/read - Clinics EKG Routine Morbid obesity (H) Pre-op testing Expected: 07/31/2024 (Approximate), Expires: 07/19/2025 INR Lab Routine Morbid obesity (H) Pre-op testing Expected: 07/31/2024 (Approximate), Expires: 07/19/2025 Partial thromboplastin time Lab Routine Morbid obesity (H) Pre-op testing Expected: 07/31/2024 (Approximate), Expires: 07/19/2025 UA with Microscopic reflex to Culture Lab Routine Morbid obesity (H) Pre-op testing Expected: 07/31/2024 (Approximate), Expires: 07/19/2025 XR Chest 2 Views Imaging Routine Morbid obesity (H) Pre-op testing Expected: 07/31/2024 (Approximate), Expires: 07/19/2025 Scheduled Procedures Name Priority Associated Diagnoses Date/Ti me CREATION, GASTRIC BYPASS, SRIDHAR-EN-Y, LAPAROSCOPIC Morbid obesity (H) Duodenal stricture 08/07/2024 10:50 AM DISTANCE EDUCATION DIRECTOR documented as of this encounter Goals Goal Patient Goal Type Associated Problems Recent Progress Patient-Stated? Author MYC ECC SURG ENROLL Care Plan MyC ECC SURG ENROLL No Lindsay Serrato documented as of this encounter Visit Diagnoses Diagnosis Encounter for pre-bariatric surgery counseling and education- Primary Morbid obesity (H) Morbid obesity Pre-op testing Preoperative examination, unspecified S/P bariatric surgery Bariatric surgery status Intestinal malabsorption, unspecified type Rapid weight loss Loss of weight Morbid obesity (H) Morbid obesity Duodenal stricture Other obstruction of duodenum documented in this encounter Additional Health Concerns Active Problems Noted Date Diagnosed Date MyC ECC SURG ENROLL 07/17/2024 Assessment Noted Time PHQ-9 Depression Total Score: 2 05/07/20 21 11:37 AM CDT documented as of this encounter Care Teams Java Software Engineer Relationship Specialty Start Date End Date Herson Rhodes MD PCP - General 06/02/11 [facility] - [address] [address] Assigned PCP 12/14/[address] [place] [address] Registered Dietitian Dietitian, Registered 06/09/24 Dung Alva, PhD [employer] [facility] [address] [address] Assigned Behavioral Health Provider 06/14/24 Aris Thurman MD [address] [place] [address] Assigned Surgical Provider 07/15/24 Miriam Melton APRN INSURANCE CLAIM REPRESENTATIVE [address] [place] [address] [address] [place] [address] Nurse Practitioner Surgery 07/19/24 documented as of this encounter
--- OUTSIDE RECORDS SUMMARY | 2024-07-31 09:37 | XMS_ITS | Encounter Summary ---
Author Organization [place] Address [address] [place] [address]. [place] [address] Care Team Providers Care Matrix Inspector Name Role Phone Herson Rhodes MD Primary Care Provider [facility] Unavailabl e Hien Flood RD Unavailable [phone] Miriam Melton APRN BRANCH OPERATIONS SPECIALIST Unavailable Dung Alva PhD Unavailable Aris Thurman MD Unavailable [phone] Miriam Melton APRN BRANCH OPERATIONS SPECIALIST Unavailable Encounter Details Date Type Department Care Team (Late st Contact Info) Description 06/14/2024 [facility]C [facility] Tobacco Use Types Packs/Day Years [...] PM CDT Legal Sex Female 5:06 AM PHYSICAL EDUCATION DEPARTMENT CHAIR Gender Identity Female 04/04/2021 10:28 PM CDT Sexual Orientation Straight 04/04/2021 10 :28 PM CDT documented as of this encounter Plan of Treatment Upcoming Encounters Date Type Department Care Team (Late st Contact Info) Description 08/07/2024 10:50 AM PHYSICAL EDUCATION DEPARTMENT CHAIR Hospital Encounter [address] [address] Aris Thurman MD [address] [place] [address] 08/07/2024 10:50 AM PHYSICAL EDUCATION DEPARTMENT CHAIR - 08/07/2024 1:40 PM PHYSICAL EDUCATION DEPARTMENT CHAIR Surgery [address] [address] Aris Thurman MD [address] [place] [id number] CREATION, GASTRIC BYPASS, SRIDHAR-EN-Y, LAPAROSCOPIC 08/15/2024 1:00 PM PHYSICAL EDUCATION DEPARTMENT CHAIR Virtual Visit [facility] Surgery Clinic and Bariatrics Care [address] [address] 08/30/2024 12:30 PM PHYSICAL EDUCATION DEPARTMENT CHAIR Virtual Visit [facility] Surgery Clinic and Bariatrics Care [address] [address] Aris Thurman MD [address] [place] [address] 09/08/2024 11:00 AM PHYSICAL EDUCATION DEPARTMENT CHAIR Virtual Visit [facility] Surgery Clinic and Bariatrics Care [address] [phone] Betty Leonardo, ZEINAB [address] [place] [address] 11/06/2024 9:30 AM CDT Virtual Visit [facility] Surgery Clinic and Bariatrics Care [address] [place] [address] Dung Alva, PhD [facility] [address] [place] [address] 11/07/2024 9:30 AM CDT Virtual Visit [facility] Surgery Clinic and Bariatrics Care [address] [place] [address] Hien Flood, RD [address] [facility] 200 [place] [address] 02/08/2025 1:30 PM CDT Office Visit [facility] Surgery Clinic and Bariatrics Care [address] [place] [phone] Miriam Melton, DEE BRANCH OPERATIONS SPECIALIST [address] [place] [address] 05/09/2025 9:30 AM CDT Virtual Visit [facility] Surgery Clinic and Bariatrics Care [address] [place] [address] Hien Flood, RD [address] [facility] 200 [place] [address] 08/09/2025 1:30 PM PHYSICAL EDUCATION DEPARTMENT CHAIR Office Visit [facility] Surgery Clinic and Bariatrics Care [address] [place] [phone] Miriam Melton, DEE BRANCH OPERATIONS SPECIALIST [address] [place] [address] Scheduled Procedures Name Priority Associated Diagnoses Date/Ti me CREATION, GASTRIC BYPASS, SRIDHAR-EN-Y, LAPAROSCOPIC Morbid obesity (H) Duodenal stricture 08/07/2024 10:50 AM PHYSICAL EDUCATION DEPARTMENT CHAIR documented as of this encounter Visit Diagnoses Not on filedocumented in this encounter Additional Health Concerns Assessment Noted Time PHQ-9 Depression Total Score: 2 05/07/20 21 11:37 AM CDT documented as of this encounter Care Teams Matrix Inspector Relationship Specialty Start Date End Date Herson Rhodes MD PCP - General 06/02/11 [facility] [address] [place] [address] Assigned PCP 12/14/[address] [place] [address] Registered Dietitian Dietitian, Registered 06/09/24 Miriam Melton APRN BRANCH OPERATIONS SPECIALIST [address] [place] [address] Assigned Surgical Provider 06/14/24 07/14/24 Dung Alva, PhD [employer] [facility] [address] [facility] 200 [place] [address] Assigned Behavioral Health Provider 06/14/24 Aris Thurman MD [address] [place] [address] Assigned Surgical Provider 07/15/24 Miriam Melton APRN BRANCH OPERATIONS SPECIALIST [address] [place] [address] Nurse Practitioner Surgery 07/19/24 documented as of this encounter
--- OUTSIDE RECORDS SUMMARY | 2024-07-31 09:37 | XMS_ITS | Encounter Summary ---
Author Organization [facility] Address [address] [place] [address]. [place] [address] Care Team Providers Care Final Inspection Supervisor Name Role Phone Herson Rhodes MD Primary Care Provider [facility] Unavailabl e Hien Flood RD Unavailable [phone] Miriam Melton APRN CLINICAL MANAGER HOME CARE Unavailable [phone] Dung Alva PhD Unavailable [phone] Reason for Visit * Reason Comments BARIATRIC SURGEON Encounter Details Date Type Department Care Team (Late st Contact Info) Description 07/05/2024 1:30 PM JUNIOR HIGH MATH TEACHER Office Visit [facility] Care [address] [place] [phone] Aris Thurman MD [address] [place] [address] Morbid obesity with BMI of 45.0-49.9, adult (H) (Primary Dx); BLAISE (obstructive sleep apnea); Morbid obesity (H); Duodenal stricture Social History Tobacco Use Types Packs/Day Years [...] PM CDT Legal Sex Female 5:06 AM JUNIOR HIGH MATH TEACHER Gender Identity Female 04/04/2021 10:28 PM CDT Sexual Orientation Straight 04/04/2021 10 :28 PM CDT documented as of this encounter Last Filed Vital Signs Vital Sign Reading Time Taken Comments Blood Pressure 120/86 07/05/2024 1:23 PM JUNIOR HIGH MATH TEACHER Pulse - - Temperature - - Respiratory Rate - - Oxygen Saturation - - Inhaled Oxygen Concentration - - Weight 135.4 kg (298 lb 6.4 oz) 07/05/2024 1:23 PM JUNIOR HIGH MATH TEACHER Height 165.1 cm (5' 5) 07/05/2024 1:23 PM JUNIOR HIGH MATH TEACHER Body Mass Index 49.66 07/05/2024 1:23 PM JUNIOR HIGH MATH TEACHER documented in this encounter Progress Notes * Aris Thurman MD - 07/05/2024 1:30 PM CST Images from the original note were not included. I was consulted by Herson Rhodes to evaluate this pt for Bariatric Surgery. HPI: Sofia Iyer is a 43 year old female here today for consideration of metabolic and bariatric surgery. she has had weight problems for most of her life. she Has tried multiple weight loss programs in the past with poor success. She was first introduced to the bariatric surgery program when she was struggling with a duodenal stricture. She has had balloon dilations to the stricture but it has been advised to her that she looks at other options for dealing with his stricture and a gastric bypass had been recommended. This pt also experiences Hypertention which is currently controlled with meds. The pt has GERD which is controlled with meds. The pt does not have Sleep Apnea. This pt does not have diabetes. Allergies:Compazine, Levofloxacin, and Phenergan dm [promethazine-dm] Past Medical History: Diagnosis Date Allergic rhinitis Anxiety Chronic daily headache Chronic pain neck pain Degenerative lumbar disc Diverticulitis Dysthymic disorder Endometriosis Gastro-oesophageal reflux disease GERD (gastroesophageal reflux disease) Hyperlipidemia LDL goal <100 Hypertension IBS (irritable bowel syndrome) IBS (irritable [...] GASTRIC BIOPSIES; Surgeon: Kashif Su MD; Location: [facility] OR ZINC SKIMMER SURGERY exc endometrial cysts HYSTERECTOMY, PAP STILL INDICATED until 2025 HYSTEROSCOPY DIAGNOSTIC 01/08/2014 Procedure: HYSTEROSCOPY DIAGNOSTIC; Surgeon: Alan Shah MD; Location: [place] HYSTEROSCOPY DIAGNOSTIC N/A 02/12/2015 Procedure: HYSTEROSCOPY DIAGNOSTIC; Surgeon: Alan Shah MD; Location: [place] INSERT STIMULATOR DORSAL COLUMN INSERT STIMULATOR DORSAL COLUMN 03/16/2011 Procedure:INSERT STIMULATOR DORSAL COLUMN; Procedure: Exchange of charageable battery of Dorsal Spinal cord stimulator with nonchargeable ; Surgeon:AJ PERKINS; Location:[facility] OR INSERT STIMULATOR DORSAL COLUMN 06/02/2011 Procedure:INSERT STIMULATOR DORSAL COLUMN; OUTSIDE THE BOX MARKETINGtronic Spinal Cord Stimulator Revision; Surgeon:AJ PERKINS; Location:[facility] OR LAPAROSCOPIC ASSISTED HYSTERECTOMY VAGINAL N/A 12/19/2015 Procedure: LAPAROSCOPIC ASSISTED HYSTERECTOMY VAGINAL; Surgeon: Alan Shah MD; Location: [place] LAPAROSCOPIC OOPHORECTOMY Left 04/11/2019 Procedure: Laparoscopic oophorectomy; Surgeon: Alan Shah MD; Location: OR LAPAROSCOPIC SALPINGECTOMY 12/19/2015 Procedure: LAPAROSCOPIC SALPINGECTOMY; Surgeon: Alan Shah MD; Location: [place] LASER CO2 LAPAROSCOPIC VAPORIZATION ENDOMETRIUM N/A 02/12/2015 Procedure: LASER CO2 LAPAROSCOPIC VAPORIZATION ENDOMETRIUM; Surgeon: Alan Shah MD; Location: [place] LASER CO2 LAPAROSCOPIC VAPORIZATION ENDOMETRIUM N/A 12/19/2015 Procedure: LASER CO2 LAPAROSCOPIC VAPORIZATION ENDOMETRIUM; Surgeon: Alan Shah MD; Location: [place] LASER CO2 LAPAROSCOPY DIAGNOSTIC, LYSIS ADHESIONS, COMBINED 01/08/2014 Procedure: COMBINED LASER CO2 LAPAROSCOPY DIAGNOSTIC, LYSIS ADHESIONS; Surgeon: Alan Shah MD; Location: [place] LASER CO2 LAPAROSCOPY DIAGNOSTIC, LYSIS ADHESIONS, COMBINED N/A 04/11/2019 Procedure: LAPAROSCOPY, USING CO2 LASER (TRANSKIYATEC TECH); Surgeon: Alan Shah MD; Location: OR radio frequency ablation nerve spine radiofrequency ablation of nerve neck 05/25/11 REPLACE BATTERY STIMULATOR DORSAL COLUMN 02/14/2014 Procedure: REPLACE BATTERY STIMULATOR DORSAL COLUMN; Surgeon: Aj Perkins MD; Location: US OR CURRENT MEDS: No current facility-administered medications for this visit. Family History Problem Relation Age of Onset Asthma Father Arthritis Father Chronic Obstructive Pulmonary Disease Father Depression Father Thyroid Disease Sister Diabetes Other Moms side reports that she quit smoking about 13 years ago. Her smoking use included cigarettes. She has never used smokeless tobacco. She reports current alcohol use. She reports current drug use. Drug: Marijuana. Review of Systems - 12 point Review of Systems is negative except for the issues mentioned above. PSYCHIATRIC: she has undergone a lifestyle assessment and has been deemed a good candidate for bariatric surgery by the psychologist. Vitals: BP 120/86 Ht 1.651 m (5' 5) Wt 135.4 kg (298 lb 6.4 oz) LMP 06/11/2015 BMI 49.66 kg/m?? BMI= Body mass index is 49.66 kg/m??. EXAM: GENERAL: This is a well-developed 43 year old female who appears her stated age HEAD & NECK: Grossly normal. No palpable thyroid lesions CARDIAC: RRR without murmur CHEST/LUNG: Clear to auscultation ABDOMEN: Obese. Nontender. No hernias or masses appreciated. LYMPHATIC: No significant adenopathy appreciated. EXTREMITIES: Grossly normal. No evidence of chronic venous stasis. NEUROLOGIC: Focally intact INTEGUMENT: No open lesions or ulcers PSYCHIATRIC: Normal affect. she has a good grasp on the nature of her obesity and the treatment options. LABS: Lab Results Component Value Date WBC 7.9 05/18/2024 HGB 11.2 05/18/2024 HGB 12.9 12/20/2015 HCT 35.4 05/18/2024 MCV 87 05/18/2024 PLT 411 05/18/2024 Component Ref Range & Units 1 mo ago Estimated Average Glucose <117 mg/dL 128 High Hemoglobin A1C 0.0 - 5.6 % 6.1 High Component Ref Range & Units 5 d ago Cotinine Confirm ng/mL <15 Nicotine Confirmation Urine ng/mL <15 Comment: INTERPRETIVE INFORMATION: Nicotine and Metabolites, Urine, Quantitative Methodology: Quantitative Liquid Chromatography-Tandem Mass Spectrometry Positive cutoff: Nicotine 15 ng/mL Cotinine 15 ng/mL 5-TC-Oshwnpeh 50 ng/mL Anabasine 5 ng/mL Component Ref Range & Units 1 mo ago (05/18/24) 1 mo ago (05/18/24) 14 yr ago (01/14/10) Sodium 135 - 145 mmol/L 137 136 R Potassium 3.4 - 5.3 mmol/L 4.2 Carbon Dioxide (CO2) 22 - 29 mmol/L 22 Anion Gap 7 - 15 mmol/L 10 6.1 R Urea Nitrogen 6.0 - 20.0 mg/dL 23.5 High Creatinine 0.51 - 0.95 mg/dL 0.84 GFR Estimate >60 mL/min/1.73m2 88 Comment: eGFR calculated using 2020 CKD-EPI equation. Calcium 8.8 - 10.4 mg/dL 9.2 Comment: Reference intervals for this test were updated on 03/07/2024 to reflect our healthy population more accurately. There may be differences in the flagging of prior results with similar values performed with this method. Those prior results can be interpreted in the context of the updated reference intervals. Chloride 98 - 107 mmol/L 105 Glucose 70 - 99 mg/dL 85 Alkaline Phosphatase 40 - 150 U/L 109 AST 0 - 45 U/L 23 ALT 0 - 50 U/L 22 Protein Total 6.4 - 8.3 g/dL 7.3 Albumin 3.5 - 5.2 g/dL 4.3 Bilirubin Total <=1.2 mg/dL 0.2 Assessment/Plan: 43 year old female who is a good candidate for bariatric and metabolic surgery. After a careful conversation with the patient it was decided that a Laparoscopic Sridhar-en-Y Gastric Bypass would be her best option to help with weight loss and to divert food away from the narrow duodenum. If we do a RNY then we lose access to the distal stomach and duodenum for future dilations if needed. I went over the surgery in detail with her. I went over the nature of the operation and some of thepotential consequences of the surgery. I went over the expected hospital course and discussed laparoscopic versus open surgery, understanding that we will plan on doing this laparoscopically with the possibility of having to convert to an open operation. I went over some of the risks and complications of the operation including, but not limited to, DVT, pulmonary emboli, pneumonia, postoperative bleeding, wound infection, staple line leak, intra-abdominal sepsis, and possible . I also wentover some of the potential nutritional concerns such as vitamin B-12, iron, vitamin D, vitamin A, calcium and protein deficiencies. I will also went over the need for lifelong nutritional surveillance. The patient understands and wants to proceed with surgery. We will submit for prior authorization. Aris Thurman MD, MD [facility]; [facility] Department of Bariatric Surgery [phone] OR HIGH MATH TEACHER * Janak Villareal MA - 07/05/2024 1:30 PM CST [facility] Informed Consent for Bariatric Surgery from the clinic was given to the patient, reviewed, signed and sent for scanning. OR HIGH MATH TEACHER documented in this encounter Plan of Treatment Upcoming Encounters Date Type Department Care Team (Late st Contact Info) Description 08/07/2024 10:50 AM JUNIOR HIGH MATH TEACHER Hospital Encounter [address] [phone] Aris Thurman MD [address] [place] [address] 08/07/2024 10:50 AM JUNIOR HIGH MATH TEACHER - 08/07/2024 1:40 PM JUNIOR HIGH MATH TEACHER Surgery [address] [phone] Aris Thurman MD [address] [place] [address] CREATION, GASTRIC BYPASS, SRIDHAR-EN-Y, LAPAROSCOPIC 08/15/2024 1:00 PM JUNIOR HIGH MATH TEACHER Virtual Visit [facility] Bariatrics Care [address] [place] [address] 08/30/2024 12:30 PM JUNIOR HIGH MATH TEACHER Virtual Visit [facility] Surgery Clinic and Bariatrics Care [address] [place] [address] Aris Thurman MD [address] [facility] 200 [place] [address] 09/08/2024 11:00 AM JUNIOR HIGH MATH TEACHER Virtual Visit [facility] Surgery Clinic and Bariatrics Care [address] [place] [address] Betty Leonardo, RD [address] [address] 11/06/2024 9:30 AM CDT Virtual Visit [facility] Bariatrics Care [address] [phone] Dung Alva, PhD [employer] [facility] [address] [facility] 200 [place] [address] 11/07/2024 9:30 AM CDT Virtual Visit [facility] Bariatrics Care [address] [place] [address] Hien Flood, RD [address] [address] 02/08/2025 1:30 PM CDT Office Visit [facility]rics Care [address] [phone] Miriam Melton, BAND TEACHER CLINICAL MANAGER HOME CARE [address] [address] 05/09/2025 9:30 AM CDT Virtual Visit [facility] Care [address] [place] [phone] [place] [address] [place] [address] [address] [place] [address] 08/09/2025 1:30 PM JUNIOR HIGH MATH TEACHER Office Visit [facility] Bariatrics Care [address] [place] [phone] Miriam Melton APRN [address] [place] [address] Scheduled Procedures Name Priority Associated Diagnoses Date/Ti me CREATION, GASTRIC BYPASS, SRIDHAR-EN-Y, LAPAROSCOPIC Morbid obesity (H) Duodenal stricture 08/07/2024 10:50 AM JUNIOR HIGH MATH TEACHER documented as of this encounter Visit Diagnoses Diagnosis Morbid obesity with BMI of 45.0-49.9, adult (H)- Primary BLAISE (obstructive sleep apnea) Obstructive sleep apnea (adult) (pediatric) Morbid obesity (H) Morbid obesity Duodenal stricture Other obstruction of duodenum Morbid obesity (H) Morbid obesity Duodenal stricture Other obstruction of duodenum documented in this encounter Additional Health Concerns Assessment Noted Time PHQ-9 Depression Total Score: 2 05/07/20 21 11:37 AM CDT documented as of this encounter Care Teams Final Inspection Supervisor Relationship Specialty Start Date End Date Herson Rhodes MD PCP - General 06/02/11 Clinic - [facility] [address] [place] [address] Assigned PCP 12/14/[address] [place] [address] [address] [place] [address] Registered Dietitian Dietitian, Registered 06/09/24 Miriam Melton APRN CLINICAL MANAGER HOME CARE [address] [address] Assigned Surgical Provider 06/14/24 07/14/24 Dung Alva, PhD [employer] [facility] 200 [place] [address] Assigned Behavioral Health Provider 06/14/24 documented as of this encounter
--- OUTSIDE RECORDS SUMMARY | 2024-07-31 09:37 | XMS_ITS | Encounter Summary ---
Author Organization [facility] Address [address] [place] [address]. [place] [address] Care Team Providers Care Electronic Die Maker Name Role Phone Herson Rhodes MD Primary Care Provider [facility] Unavailabl e Hien Flood RD Unavailable [phone] Miriam Melton APRN BENDING PRESS OPERATOR Unavailable [phone] Dung Alva PhD Unavailable [phone] Encounter Details Date Type Department Care Team (Latest Contact Info) Description 07/05/2024 Travel Social History Tobacco Use Types Packs/Day [...] PM CDT Legal Sex Female 5:06 AM GREEN JOBS TRAINER Gender Identity Female 04/04/2021 10:28 PM CDT Sexual Orientation Straight 04/04/2021 10 :28 PM CDT documented as of this encounter Plan of Treatment Upcoming Encounters Date Type Department Care Team (Late st Contact Info) Description 08/07/2024 10:50 AM GREEN JOBS TRAINER Hospital Encounter [address] [phone] [place] [address] [place] [address] 08/07/2024 10:50 AM GREEN JOBS TRAINER - 08/07/2024 1:40 PM GREEN JOBS TRAINER Surgery [facility] [address] [place] [address] Aris Thurman MD [address] [place] [address] CREATION, GASTRIC BYPASS, SRIDHAR-EN-Y, LAPAROSCOPIC 08/15/2024 1:00 PM GREEN JOBS TRAINER Virtual Visit [facility] Surgery Clinic and Bariatrics Care [address] [phone] 08/30/2024 12:30 PM GREEN JOBS TRAINER Virtual Visit [facility] Surgery Clinic and Bariatrics Care [address] [phone] Aris Thurman MD [address] [place] [address] 09/08/2024 11:00 AM GREEN JOBS TRAINER Virtual Visit [facility] Surgery Clinic [facility] Bariatrics Care [address] [phone] Betty Leonardo, RD [facility] [address] [address] 11/06/2024 9:30 AM CDT Virtual Visit [facility] Surgery Clinic and Bariatrics Care [address] [phone] Dung Alva, PhD [employer] [facility] [address] 200 [place] [address] 11/07/2024 9:30 AM CDT Virtual Visit [facility] Surgery Clinic and Bariatrics Care [address] 200 [place] [phone] Hien Flood, RD 2945 [facility] 200 [place] [address] 02/08/2025 1:30 PM CDT Office Visit [facility] Surgery [facility] B[facility]rics Care [address] [place] [phone] Miriam Melton, DEE BENDING PRESS OPERATOR [address] [place] [address] 05/09/2025 9:30 AM CDT Virtual Visit [facility] Surgery [facility] B[facility]rics Care [address] [place] [address] Hien Flood, RD 2945 [facility] 200 [place] [address] 08/09/2025 1:30 PM GREEN JOBS TRAINER Office Visit [facility] Care [address] [place] [address] Miriam Melton, DEE BENDING PRESS OPERATOR [address] [place] [address] Scheduled Procedures Name Priority Associated Diagnoses Date/Ti me CREATION, GASTRIC BYPASS, SRIDHAR-EN-Y, LAPAROSCOPIC Morbid obesity (H) Duodenal stricture 08/07/2024 10:50 AM GREEN JOBS TRAINER documented as of this encounter Visit Diagnoses Not on filedocumented in this encounter Additional Health Concerns Assessment Noted Time PHQ-9 Depression Total Score: 2 05/07/20 21 11:37 AM CDT documented as of this encounter Care Teams Electronic Die Maker Relationship Specialty Start Date End Date Herson Rhodes MD PCP - General 06/02/11 [facility] [address] [place] [address] Assigned PCP 12/14/[address]45 [facility] 200 [place] [address] Registered Dietitian Dietitian, Registered 06/09/24 Miriam Melton APRN CNP 2945 [facility] 200 [place] [address] Assigned Surgical Provider 06/14/24 07/14/24 Dung Alva, PhD [employer] [facility] [facility] [address] [facility] 200 [place], [place] [address] Assigned Behavioral Health Provider 06/14/24 documented as of this encounter
--- OUTSIDE RECORDS SUMMARY | 2024-07-31 09:37 | XMS_ITS | Encounter Summary ---
Author Organization [facility] Address [address] [place] [address]. [place] [address] Care Team Providers Care Spirits Model Name Role Phone Herson Rhodes MD Primary Care Provider [facility] Unavailabl e Hien Flood RD Unavailable Dung Alva PhD Unavailable [phone] Aris Thurman MD Unavailable Encounter Details Date Type Department Care Team (Latest Contact Info) Description 07/18/2024 Travel Social History Tobacco Use Types Packs/Day [...] PM CDT Legal Sex Female 5:06 AM SALES PROJECT MANAGER Gender Identity Female 04/04/2021 10:28 PM CDT Sexual Orientation Straight 04/04/2021 10 :28 PM CDT documented as of this encounter Plan of Treatment Upcoming Encounters Date Type Department Care Team (Late st Contact Info) Description 08/07/2024 10:50 AM SALES PROJECT MANAGER Hospital Encounter [address] [phone] [place] [address] [place] [address] 200 [place] [address] 08/07/2024 10:50 AM SALES PROJECT MANAGER - 08/07/2024 1:40 PM SALES PROJECT MANAGER Surgery [facility] [address] [place] [address] Aris Thurman MD [address] [place] [address] CREATION, GASTRIC BYPASS, SRIDHAR-EN-Y, LAPAROSCOPIC 08/15/2024 1:00 PM SALES PROJECT MANAGER Virtual Visit [facility] Surgery Clinic and Bariatrics Care [address] [address] 08/30/2024 12:30 PM SALES PROJECT MANAGER Virtual Visit [facility] Surgery Clinic and Bariatrics Care [address] [phone] Aris Thurman MD [address] [place] [address] 09/08/2024 11:00 AM SALES PROJECT MANAGER Virtual Visit [facility] Surgery Clinic and Bariatrics Care [address] [phone] Betty Leonardo, RD [facility] [address] [address] 11/06/2024 9:30 AM CDT Virtual Visit [facility] Surgery Clinic and Bariatrics Care [address] [phone] Dung Alva, PhD [employer] [facility] [address] [facility] 200 [place] [address] 11/07/2024 9:30 AM CDT Virtual Visit [facility] Surgery Clinic and Bariatrics Care [address] 200 [place] [phone] Hien Flood, RD [address]45 [facility] 200 [place] [address] 02/08/2025 1:30 PM CDT Office Visit [facility] Surgery Clinic and Bariatrics Care [address] 200 [place] [phone] Miriam Melton APRN PROBATION AGENT [address] [place] [address] 05/09/2025 9:30 AM CDT Virtual Visit [facility] [address] [place] [phone] Hien Flood, RD 2945 [facility] 200 [place] [address] 08/09/2025 1:30 PM SALES PROJECT MANAGER Office Visit [facility] Surgery [facility] and Bariatrics Care [address] [place] [phone] Miriam Melton, DEE PROBATION AGENT [address] [place] [address] Scheduled Procedures Name Priority Associated Diagnoses Date/Ti me CREATION, GASTRIC BYPASS, SRIDHAR-EN-Y, LAPAROSCOPIC Morbid obesity (H) Duodenal stricture 08/07/2024 10:50 AM SALES PROJECT MANAGER documented as of this encounter Goals Goal [...] documented as of this encounter Care Teams Spirits Model Relationship Specialty Start Date End Date Herson Rhodes MD PCP - General 06/02/11 [facility] [id number] [place] [address] Assigned PCP 12/14/[address] [place] [address] [place] [address] Registered Dietitian Dietitian, Registered 06/09/24 Dung Alva, PhD [employer] [address] [address] Assigned Behavioral Health Provider 06/14/24 [place] [address] [place] [address] Assigned Surgical Provider 07/15/24 documented as of this encounter
--- OUTSIDE RECORDS SUMMARY | 2024-07-31 09:37 | XMS_ITS | Encounter Summary ---
Author Organization [place] Address [address] [place] [address]. [place] [address] Care Team Providers Care Dry Cleaner Hand Name Role Phone Herson Rhodes MD Primary Care Provider [facility] Unavailabl e Hien Flood RD Unavailable [phone] Miriam Melton APRN SUBMARINE CABLE EQUIPMENT TECHNICIAN Unavailable [phone] Dung Alva PhD Unavailable [phone] Encounter Details Date Type Department Care Team (Late st Contact Info) Description 06/29/2024 11:00 AM INCREMENT MANAGER Lab [facility] [address] [place] [phone] History of tobacco use Social History Tobacco Use Types Packs/Day Years [...] PM CDT Legal Sex Female 5:06 AM INCREMENT MANAGER Gender Identity Female 04/04/2021 10:28 PM CDT Sexual Orientation Straight 04/04/2021 10 :28 PM CDT documented as of this encounter Plan of Treatment Upcoming Encounters Date Type Department Care Team (Late st Contact Info) Description 08/07/2024 10:50 AM INCREMENT MANAGER Hospital Encounter [address] [address] Aris Thurman MD [address] [place] [address] 08/07/2024 10:50 AM INCREMENT MANAGER - 08/07/2024 1:40 PM INCREMENT MANAGER Surgery [address] [address] Aris Thurman MD [address] [place] [address] CREATION, GASTRIC BYPASS, SRIDHAR-EN-Y, LAPAROSCOPIC 08/15/2024 1:00 PM INCREMENT MANAGER Virtual Visit [facility] [address] [address] 08/30/2024 12:30 PM INCREMENT MANAGER Virtual Visit [facility] [address] [address] Aris Thurman MD [address] [place] [address] 09/08/2024 11:00 AM INCREMENT MANAGER Virtual Visit [facility] [address] [address] Betty Leonardo, ZEINAB [address] [place] [address] 11/06/2024 9:30 AM CDT Virtual Visit [facility] [address] [address] Dung Alva, PhD [facility] [address] [place] [address] 11/07/2024 9:30 AM CDT Virtual Visit [facility] [address] [place] [address] Hien Flood, RD 2945 [facility] 200 [place] [address] 02/08/2025 1:30 PM CDT Office Visit [facility] [address] 200 [place] [address] Miriam Melton, DEE SUBMARINE CABLE EQUIPMENT TECHNICIAN [address] [place] [address] 200 [place] [address] 05/09/2025 9:30 AM CDT Virtual Visit [facility] [address] 200 [place] [address] Hien Flood, RD 2945 [facility] 200 [place] [address] 08/09/2025 1:30 PM INCREMENT MANAGER Office Visit [facility] [address] 200 [place] [address] Miriam Melton, DEE SUBMARINE CABLE EQUIPMENT TECHNICIAN [address] [place] [address] Scheduled Procedures Name Priority Associated Diagnoses Date/Ti me CREATION, GASTRIC BYPASS, SRIDHAR-EN-Y, LAPAROSCOPIC Morbid obesity (H) Duodenal stricture 08/07/2024 10:50 AM INCREMENT MANAGER documented as of this encounter Procedures Procedure Name Priority Date/Time Associated Diagnosis Comments NICOTINE AND METS, URN, QUANT Routine 06/29/2024 10:50 AM INCREMENT MANAGER History of tobacco use documented in this encounter Results * Nicotine and Mets, Urn, Quant (06/29/2024 10:50 AM INCREMENT MANAGER) Cotinine Confirm <15 ng/mL 07/02/20 9:09 PM INCREMENT MANAGER [facility] Nicotine Confirmation Urine <15 ng/mL 07/02/2024 9:09 PM INCREMENT MANAGER [facility] Comment: INTERPRETIVE INFORMATION: Nicotine and Metabolites, Urine, Quantitative Methodology: Quantitative Liquid Chromatography-Tandem Mass Spectrometry Positive cutoff: Nicotine 15 ng/mL Cotinine 15 ng/mL 2-HN-[id number] 50 ng/mL Anabasine 5 ng/mL For medical [...] developed and its performance characteristics determined by [facility]. It has not been cleared or approved by the [place] Food and Drug Administration. This test was performed in a CLIA certified laboratory and is intended for clinical purposes. Performed By: [facility] [address] [place] [address] Emergency Planner: Ceasar Romero MD, PhD CLIA Number: [id number], Urn, Quant <50 ng/mL 07/02/2024 9:09 PM INCREMENT MANAGER [facility] Anabasine, Urn, Quant <5 ng/mL 07/02/2024 9:09 PM INCREMENT MANAGER [facility] Urine URINE SPECIMEN OBTAINED BY CLEAN CATCH PROCEDURE / Unknown Non-blood Collection / Unknown 06/29/2024 10:50 AM INCREMENT MANAGER 06/29/2024 10:51 AM INCREMENT MANAGER Miriam Melton APRN, CNP LAB - URINE ORDERABL ES Final Result [facility] [address] [place] [address], [facility] [phone] documented in this encounter Visit Diagnoses Diagnosis History of tobacco use Personal history of tobacco use, presenting hazards to health Morbid obesity (H) Morbid obesity Duodenal stricture Other obstruction of duodenum documented in this encounter Additional Health Concerns Assessment Noted Time PHQ-9 Depression Total Score: 2 05/07/20 21 11:37 AM CDT documented as of this encounter Care Teams Dry Cleaner Hand Relationship Specialty Start Date End Date Herson Rhodes MD PCP - General 06/02/11 [facility] [id number] [place] [address] Assigned PCP 12/14/[address] [place] [address] Registered Dietitian Dietitian, Registered 06/09/24 iMriam Melton APRN SUBMARINE CABLE EQUIPMENT TECHNICIAN [address] [place] [address] Assigned Surgical Provider 06/14/24 07/14/24 Dung Alva, PhD [facility] [address] [address] Assigned Behavioral Health Provider 06/14/24 documented as of this encounter
--- OUTSIDE RECORDS SUMMARY | 2024-07-31 09:37 | XMS_ITS | Encounter Summary ---
Author Organization [facility] Address [address] [place] [address] Care Team Providers Care Silk Screen Cutter Name Role Phone Herson Rhodes MD Primary Care Provider [facility] Unavailabl e Hien Flood RD Unavailable [phone] Miriam Melton APRN BLOCK CUBER Unavailable [phone] Dung Alva PhD Unavailable Reason for Referral * Medication Prior Authorization - Authorized Specialty Diagnoses / Procedures Referred By Abdirizak trimble Referred To Contact Diagnoses Morbid obesity with BMI of 45.0-49.9, adult (H) Pre-diabetes Miriam Melton APRN CNP [address] [address] Phone: tel: fax: Referral ID Status Reason Start Date Expiration Date V isits Requested Visits Authorized [id number] Authorized 1 1 N MIXER Encounter Details Date Type Department Care Team (Late st Contact Info) Description 06/27/2024 Jillian Medical Advice [facility] and Bariatrics Care [place] [address] [phone] Litzy Hall RN Morbid obesity with BMI of 45.0-49.9, adult (H) (Primary Dx); Pre-diabetes Social History Tobacco Use Types Packs/Day [...] PM CDT Legal Sex Female 5:06 AM GRAIN MIXER Gender Identity Female 04/04/2021 10:28 PM CDT Sexual Orientation Straight 04/04/2021 10 :28 PM CDT documented as of this encounter Plan of Treatment Upcoming Encounters Date Type Department Care Team (Late st Contact Info) Description 08/07/2024 10:50 AM GRAIN MIXER Hospital Encounter [address] [address] Aris Thurman MD [address] [place] [address] 08/07/2024 10:50 AM GRAIN MIXER - 08/07/2024 1:40 PM GRAIN MIXER Surgery [address] [address] Aris Thurman MD [address] [place] [address] CREATION, GASTRIC BYPASS, SRIDHAR-EN-Y, LAPAROSCOPIC 08/15/2024 1:00 PM GRAIN MIXER Virtual Visit [facility]ariat[facility] [address] [address] 08/30/2024 12:30 PM GRAIN MIXER Virtual Visit [facility] [address] [address] Aris Thurman MD 2945 [facility] 200 [place] [address] 09/08/2024 11:00 AM GRAIN MIXER Virtual Visit [facility] [address] 200 [place] [address] Betty Leonardo, RD 2945 [facility] 200 [place] [address] 11/06/2024 9:30 AM CDT Virtual Visit [facility] [address] 200 [place] [address] Dung Alva, PhD RONNA AND [employer] [address] 200 [place] [address] 11/07/2024 9:30 AM CDT Virtual Visit [facility] [address] 200 [place] [address] Hien Flood, RD [address] [address] 02/08/2025 1:30 PM CDT Office Visit [facility] [address] 200 [place] [address] Miriam Melton, DEE [address] [address] 05/09/2025 9:30 AM CDT Virtual Visit [facility] [address] 200 [place] [address] [place] [address] 08/09/2025 1:30 PM GRAIN MIXER Office Visit [facility] [place] [address] [place] [phone] Miriam Melton APRN BLOCK CUBER [address] [place] [address] Scheduled Procedures Name Priority Associated Diagnoses Date/Ti me CREATION, GASTRIC BYPASS, SRIDHAR-EN-Y, LAPAROSCOPIC Morbid obesity (H) Duodenal stricture 08/07/2024 10:50 AM GRAIN MIXER documented as of this encounter Visit Diagnoses Diagnosis Morbid obesity with BMI of 45.0-49.9, adult (H)- Primary Pre-diabetes Other abnormal glucose Morbid obesity (H) Morbid obesity Duodenal stricture Other obstruction of duodenum documented in this encounter Additional Health Concerns Assessment Noted Time PHQ-9 Depression Total Score: 2 05/07/20 21 11:37 AM CDT documented as of this encounter Care Teams Silk Screen Cutter Relationship Specialty Start Date End Date Herson Rhodes MD PCP - General 06/02/11 Clinic - [facility] [address] [place] [address] Assigned PCP 12/14/[address] [place] [address] Registered Dietitian Dietitian, Registered 06/09/24 Miriam Melton APRN BLOCK CUBER [address] [place] [address] Assigned Surgical Provider 06/14/24 07/14/24 Dung Alva, PhD [employer] AND [employer] [address] [place] [address] Assigned Behavioral Health Provider 06/14/24 documented as of this encounter
--- OUTSIDE RECORDS SUMMARY | 2024-07-31 09:37 | XMS_ITS | Encounter Summary ---
Author Organization [facility] Address [address] [place] [address]. [place] [address] Care Team Providers Care Rn Palliative Care Name Role Phone Herson Rhodes MD Primary Care Provider [phone] [facility] Unavailabl e Hien Flood RD Unavailable [phone] Miriam Melton APRN DOCK GRADER Unavailable [phone] Dung Alva PhD Unavailable [phone] Encounter Details Date Type Department Care Team (Latest Contact Info) Description 07/04/2024 Travel Social History Tobacco Use Types Packs/Day [...] PM CDT Legal Sex Female 5:06 AM AUTO CAMP ATTENDANT Gender Identity Female 04/04/2021 10:28 PM CDT Sexual Orientation Straight 04/04/2021 10 :28 PM CDT documented as of this encounter Plan of Treatment Upcoming Encounters Date Type Department Care Team (Late st Contact Info) Description 08/07/2024 10:50 AM AUTO CAMP ATTENDANT Hospital Encounter [address] [address] [place] [address] [place] [address] 08/07/2024 10:50 AM AUTO CAMP ATTENDANT - 08/07/2024 1:40 PM AUTO CAMP ATTENDANT Surgery [facility] [address] [place] [address] Aris Thurman MD [address] [place] [address] CREATION, GASTRIC BYPASS, SRIDHAR-EN-Y, LAPAROSCOPIC 08/15/2024 1:00 PM AUTO CAMP ATTENDANT Virtual Visit [facility] Surgery Clinic and Bariatrics Care [address] [address] 08/30/2024 12:30 PM AUTO CAMP ATTENDANT Virtual Visit [facility]ariat[facility] [address] [address] Aris Thurman MD [address] [place] [address] 09/08/2024 11:00 AM AUTO CAMP ATTENDANT Virtual Visit [facility] [address] [address] Betty Leonardo, RD [facility] [address] [address] 11/06/2024 9:30 AM CDT Virtual Visit [facility] [address] [address] Dung Alva, PhD [facility]ON[facility] AND [employer] [facility] [address] 200 [place] [address] 11/07/2024 9:30 AM CDT Virtual Visit [facility] [address] 200 [place] [address] Hien Flood, RD 2945 [facility] 200 [place] [address] 02/08/2025 1:30 PM CDT Office Visit [facility] [address] 200 [place] [address] Miriam Melton, DEE DOCK GRADER [address] [place] [address] 05/09/2025 9:30 AM CDT Virtual Visit [facility] [address] 200 [place] [address] Hien Flood, RD 2945 [facility] 200 [place] [address] 08/09/2025 1:30 PM AUTO CAMP ATTENDANT Office Visit [facility] [address] 200 [place] [address] Miriam Melton, DEE DOCK GRADER [address] [place] [address] Scheduled Procedures Name Priority Associated Diagnoses Date/Ti me CREATION, GASTRIC BYPASS, SRIDHAR-EN-Y, LAPAROSCOPIC Morbid obesity (H) Duodenal stricture 08/07/2024 10:50 AM AUTO CAMP ATTENDANT documented as of this encounter Visit Diagnoses Not on filedocumented in this encounter Additional Health Concerns Assessment Noted Time PHQ-9 Depression Total Score: 2 05/07/20 21 11:37 AM CDT documented as of this encounter Care Teams Rn Palliative Care Relationship Specialty Start Date End Date Herson Rhodes MD PCP - General 06/02/11 [facility] [address] [place] [address] Assigned PCP 12/14/[address] 2945 [facility] 200 [place] [address] Registered Dietitian Dietitian, Registered 06/09/24 Miriam Melton APRN CNP 2945 [facility] 200 [place] [address] Assigned Surgical Provider 06/14/24 07/14/24 Dung Alva, PhD [facility] [address] [facility] 200 [place], [place] [address] Assigned Behavioral Health Provider 06/14/24 documented as of this encounter
--- OUTSIDE RECORDS SUMMARY | 2024-07-31 09:37 | XMS_ITS | Encounter Summary ---
Author Organization [place] Address [address] [place] [address]. [place] [address] Care Team Providers Care Kai [place] Name Role Phone Herson Rhodes MD Primary Care Provider [facility] Unavailabl e Hien Flood RD Unavailable Miriam Melton APRN [employer] DEVELOPER Unavailable Dung Alva PhD Unavailable Airs Thurman MD Unavailable [phone] Miriam Melton APRN [employer] DEVELOPER Unavailable Encounter Details Date Type Department Care Team (Late st Contact Info) Description 06/14/2024 [facility] Social [facility] Tobacco Use Types Packs/Day Years [...] PM CDT Legal Sex Female 5:06 AM SENIOR INTEGRATION DEVELOPER Gender Identity Female 04/04/2021 10:28 PM CDT Sexual Orientation Straight 04/04/2021 10 :28 PM CDT documented as of this encounter Plan of Treatment Upcoming Encounters Date Type Department Care Team (Late st Contact Info) Description 08/07/2024 10:50 AM SENIOR INTEGRATION DEVELOPER Hospital Encounter [address] [address] Aris Thurman MD [address] [place] [address] 08/07/2024 10:50 AM SENIOR INTEGRATION DEVELOPER - 08/07/2024 1:40 PM SENIOR INTEGRATION DEVELOPER Surgery [address] [address] Aris Thurman MD [address] [place] [address] CREATION, GASTRIC BYPASS, SRIDHAR-EN-Y, LAPAROSCOPIC 08/15/2024 1:00 PM SENIOR INTEGRATION DEVELOPER Virtual Visit [facility] Surgery Clinic and Bariatrics Care [address] [address] 08/30/2024 12:30 PM SENIOR INTEGRATION DEVELOPER Virtual Visit [facility] [address] [address] Aris Thurman MD [address] [place] [address] 09/08/2024 11:00 AM SENIOR INTEGRATION DEVELOPER Virtual Visit [facility] [address] [address] Betty Leonardo, ZEINAB [address] [place] [address] 11/06/2024 9:30 AM CDT Virtual Visit [facility] [address] 200 [place] [address] Dung Alva, PhD [facility] [address] 200 [facility] [address] 11/07/2024 9:30 AM CDT Virtual Visit [facility] [address] 200 [place] [address] Hien Flood, RD 2945 [facility] 200 [place] [address] 02/08/2025 1:30 PM CDT Office Visit [facility] [address] 200 [place] [address] Miriam Melton, DEE [employer] DEVELOPER [address] [place] [address] 05/09/2025 9:30 AM CDT Virtual Visit [facility] [address] 200 [place] [address] Hien Flood, RD 2945 [facility] 200 [place] [address] 08/09/2025 1:30 PM SENIOR INTEGRATION DEVELOPER Office Visit [facility] [address] 200 [place] [address] Miriam Melton, DEE [employer] DEVELOPER [address] [place] [address] Scheduled Procedures Name Priority Associated Diagnoses Date/Ti me CREATION, GASTRIC BYPASS, SRIDHAR-EN-Y, LAPAROSCOPIC Morbid obesity (H) Duodenal stricture 08/07/2024 10:50 AM SENIOR INTEGRATION DEVELOPER documented as of this encounter Visit Diagnoses Not on filedocumented in this encounter Additional Health Concerns Assessment Noted Time PHQ-9 Depression Total Score: 2 05/07/20 21 11:37 AM CDT documented as of this encounter Care Teams Kai Whakaruruhau Relationship Specialty Start Date End Date Herson Rhodes MD PCP - General 06/02/11 [facility] [address] [place] [address] Assigned PCP 12/14/[address] [place] [address] Registered Dietitian Dietitian, Registered 06/09/24 Miriam Melton APRN [employer] DEVELOPER [address] [place] [address] Assigned Surgical Provider 06/14/24 07/14/24 Dung Alva, PhD [facility] [address] [facility] 200 [place] [address] Assigned Behavioral Health Provider 06/14/24 Aris Thurman MD [address] [place] [address] Assigned Surgical Provider 07/15/24 Miriam Melton APRN [employer] DEVELOPER [address] [place] [address] Nurse Practitioner Surgery 07/19/24 documented as of this encounter
--- OUTSIDE RECORDS SUMMARY | 2024-07-31 09:37 | XMS_ITS | Referral Summary ---
Author Organization [place] Address [address] [place] [address]. [place] [address] Care Team Providers Care Grey Washer Name Role Phone Herson Rhodes MD Primary Care Provider [facility] Unavailabl e Hien Flood RD Unavailable [phone] Dung Alva PhD Unavailable [phone] Aris Thurman MD Unavailable Miriam Melton APRN RN ER Unavailable [phone] Encounters Date Type Department Care Team Description 07/19/2024 Travel 07/19/2024 12:30 PM PROVIDER EDUCATION SPECIALIST Allied Health/Nurse Visit [facility] [address] [phone] Bariatric (Pre-op Class/); Pt Ed 07/18/2024 Travel 07/18/2024 MyC Medical Advice [facility] [address] [phone] Esau [place] 07/17/2024 MyC Medical Advice [facility] [place] [facility] [address] [place] [phone] Litzy Hall RN 07/17/2024 MyC Medical Advice [facility] [address] [place] [address] Radha Brown 07/17/2024 Documentation Only [facility] [address] [place] [address] Radha Brown 07/06/2024 Documentation Only [facility] [address] [place] [address] [facility]24 Travel 07/05/2024 1:30 PM PROVIDER EDUCATION SPECIALIST Office Visit [facility] [address] [phone] Aris Thurman MD Morbid obesity with BMI of 45.0-49.9, adult (H) (Primary Dx); BLAISE (obstructive sleep apnea); Morbid obesity (H); Duodenal stricture 07/04/2024 Travel 06/29/2024 Travel 06/29/2024 11:00 AM PROVIDER EDUCATION SPECIALIST Lab [facility] [address] [place] [address] History of tobacco use 06/28/2024 MyC Medical Advice [facility] [place] [facility] [address] [phone] Litzy Hall RN prep for surgery 06/28/2024 9:30 AM PROVIDER EDUCATION SPECIALIST Virtual Visit [facility] [place] [facility] [address] [phone] Dung Alva, PhD Morbid obesity (H) (Primary Dx) 06/27/2024 MyC Medical Advice [facility] [place] [facility] [address] [place] [address] Litzy Hall RN Morbid obesity with BMI of 45.0-49.9, adult (H) (Primary Dx); Pre-diabetes 06/26/2024 2:30 PM PROVIDER EDUCATION SPECIALIST Virtual Visit [facility] [place] [facility] [address] [place] [phone] Hien Flood, ZEINAB Morbid obesity with BMI of 45.0-49.9, adult (H) (Primary Dx); Pre-bariatric surgery nutrition evaluation 06/14/2024 MyC Medical Advice Initial Department [facility] 06/14/2024 MyC Medical Advice Initial Department [facility] 06/12/2024 9:00 AM CDT Virtual Visit [facility] [place] [facility] [address] [phone] Dung Alva, PhD Morbid obesity (H) (Primary Dx) 06/09/2024 10:00 AM CDT Virtual Visit [facility] [place] [facility] [address] [phone] Hien Flood, ZEINAB Morbid obesity with BMI of 45.0-49.9, adult (H) (Primary Dx); Pre-bariatric surgery nutrition evaluation 06/05/2024 11:00 AM CDT Virtual Visit [facility] [address] [phone] 1, Sh Wl Diet, RD Obesity (Primary Dx) 06/02/2024 Travel 06/02/2024 Telephone [facility] [place] [facility] [address] [phone] Radha Brown 06/01/2024 MyC Medical Advice [facility] [place] [facility] [address] [phone] Litzy Hall RN 05/22/2024 1:00 PM CDT Virtual Visit [facility] [address] [place] [address] Dung Alva, PhD Morbid obesity (H) (Primary Dx) 05/18/2024 11:15 AM CDT Lab [facility] [address] [place] [address] Healthcare maintenance; Morbid obesity (H); Pre-diabetes 05/18/2024 Travel 05/18/2024 10:00 AM CDT Office Visit [facility] [address] [place] [address] Miriam Melton APRN CNP Healthcare maintenance (Primary Dx); Morbid obesity (H); Pre-diabetes 05/13/2024 Travel 05/09/2024 Travel 05/09/2024 1:45 PM CDT Office Visit [facility] [address] [place] [address] Kashif Su MD Fasen, Geoffrey, MD Class 3 severe obesity due to excess calories with serious comorbidity and body mass index (BMI) of 50.0 to 59.9 in adult (H) (Primary Dx); Duodenal stenosis 05/04/2024 Travel 05/02/2024 Transcribe Orders GENERIC EXTERNAL DATA DEPARTMENT Kashif Su MD Duodenal stenosis (Primary Dx) 05/01/[address] [facility] Information Management [address] [place] [address] [address] [place] [address] Scan, Non-Provider from Last 3 Months Allergies [...] Active fluticasone (FLONASE) 50 MCG/ACT nasal spray [place] 2 sprays into both nostrils daily Active [...] PM CDT Legal Sex Female 5:06 AM PROVIDER EDUCATION SPECIALIST Gender Identity Female 04/04/2021 10:28 PM CDT Sexual Orientation Straight 04/04/2021 10 :28 PM CDT Last Filed Vital Signs Vital Sign Reading Time Taken Comments Blood Pressure 120/86 07/05/2024 1:23 PM PROVIDER EDUCATION SPECIALIST Pulse 72 02/18/2023 1:10 PM CDT Temperature 36.8 C (98.2 F) 02/18/2023 1:10 PM CDT Respiratory Rate 14 02/18/2023 1:10 PM CDT Oxygen Saturation 99% 02/18/2023 1:10 PM CDT Inhaled Oxygen Concentration - - Weight 133.8 kg (295 lb) 07/19/2024 2:41 PM PROVIDER EDUCATION SPECIALIST Height 165.1 cm (5' 5) 07/19/2024 2:41 PM PROVIDER EDUCATION SPECIALIST Body Mass Index 49.09 07/19/2024 2:41 PM PROVIDER EDUCATION SPECIALIST Plan of Treatment Upcoming Encounters Date Type Department Care Team (Late st Contact Info) Description 08/07/2024 10:50 AM PROVIDER EDUCATION SPECIALIST Hospital Encounter [address] [phone] Aris Thurman MD [address] [place] [address] 08/07/2024 10:50 AM PROVIDER EDUCATION SPECIALIST - 08/07/2024 1:40 PM PROVIDER EDUCATION SPECIALIST Surgery [address] [phone] Aris Thurman MD [address] [place] [address] CREATION, GASTRIC BYPASS, SRIDHAR-EN-Y, LAPAROSCOPIC 08/15/2024 1:00 PM PROVIDER EDUCATION SPECIALIST Virtual Visit [facility] [address] [phone] 08/30/2024 12:30 PM PROVIDER EDUCATION SPECIALIST Virtual Visit [facility] [address] [phone] Aris Thurman MD [address] [place] [address] 09/08/2024 11:00 AM PROVIDER EDUCATION SPECIALIST Virtual Visit [facility] [address] [phone] Betty Leonardo, ZEINAB [address] [place], [place] [address] [address] 11/06/2024 9:30 AM CDT Virtual Visit [facility] [address] [place] [address] Dung Alva, PhD [employer] [facility] [address] [place] [address] 11/07/2024 9:30 AM CDT Virtual Visit [facility] [address] [phone] [address] 02/08/2025 1:30 PM CDT Office Visit [facility] [address] [phone] Miriam Melton APRN RN ER [address] [place] [address] 05/09/2025 9:30 AM CDT Virtual Visit [facility] [address] [place] [address] Hien Flood, ZEINAB [address] [facility] [address] [place] [address] 08/09/2025 1:30 PM PROVIDER EDUCATION SPECIALIST Office Visit [facility] [address] [place] [address] Miriam Melton APRN RN ER [address] [address] Scheduled Procedures Name Priority Associated Diagnoses Date/Ti me CREATION, GASTRIC BYPASS, SRIDHAR-EN-Y, LAPAROSCOPIC Morbid obesity (H) Duodenal stricture 08/07/2024 10:50 AM PROVIDER EDUCATION SPECIALIST Goals Goal Patient Goal Type Associated Problems Recent Progress Patient-Stated? Author MYC ECC SURG ENROLL Care Plan MyC ECC SURG ENROLL No Lindsay Serrato Medical Devices Implanted Type Area Farm Equipment Maintenance Supervisor Device Identifier Shelf Expiration Date Model / Serial / Lot Primeadvanced Surescan Mri Neurostimulator Implanted:Qty: 1 on 02/14/2014 by Aj Perkins MD at [facility] Left: Buttocks [employer] 03/19/2015 [id number] / [id number] H / Explanted Type Area Farm Equipment Maintenance Supervisor Device Identifier Shelf Expiration Date Model / Serial / Lot Prime Advanced Neurostimulator Implanted:Qty: 1 on 03/16/2011 at [facility] Explanted:Qty: 1 on 02/14/2014 by Aj Perkins MD at [facility] Left: Buttocks [employer] 03/05/2012 [id number] / [id number] H / Description:Prime advanced M ulti program Neurostimulator [employer] Procedures Procedure Name Priority Date/Time Associated Diagnosis Comments NICOTINE AND METS, URN, QUANT Routine 06/29/2024 10:50 AM PROVIDER EDUCATION SPECIALIST History of tobacco use ZINC Routine 05/18/2024 [...] and Mets, Urn, Quant (06/29/2024 10:50 AM PROVIDER EDUCATION SPECIALIST) Cotinine Confirm <15 ng/mL 07/02/20 9:09 PM PROVIDER EDUCATION SPECIALIST [facility] Nicotine Confirmation Urine <15 ng/mL 07/02/2024 9:09 PM PROVIDER EDUCATION SPECIALIST [facility] Comment: INTERPRETIVE INFORMATION: Nicotine and Metabolites, Urine, Quantitative Methodology: Quantitative Liquid Chromatography-Tandem Mass Spectrometry Positive cutoff: Nicotine 15 ng/mL Cotinine 15 ng/mL 4-ZA-Brirnmrg 50 ng/mL Anabasine 5 ng/mL For medical [...] developed and its performance characteristics determined by [facility]. It has not been cleared or approved by the US Food and Drug Administration. This test was performed in a CLIA certified laboratory and is intended for clinical purposes. Performed By: [facility] [address] [place] [address] [employer] Sales Consultant: Ceasar Romero MD, PhD CLIA Number: [id number] 1-OQ-Uxzumgsn, Urn, Quant <50 ng/mL 07/02/2024 9:09 PM PROVIDER EDUCATION SPECIALIST [facility] Anabasine, Urn, Quant <5 ng/mL 07/02/2024 9:09 PM PROVIDER EDUCATION SPECIALIST [facility] Urine URINE SPECIMEN OBTAINED BY CLEAN CATCH PROCEDURE / Unknown Non-blood Collection / Unknown 06/29/2024 10:50 AM PROVIDER EDUCATION SPECIALIST 06/29/2024 10:51 AM PROVIDER EDUCATION SPECIALIST Miriam Melton APRN RN ER LAB - URINE ORDERABL ES Final Result formerly [facility] [address] [place] [address] [phone] * Zinc (05/18/2024 11:25 AM CDT) Zinc, Serum/Plasma 74.3 60.0 - 120.0 ug/dL 05/19/2024 10:35 PM CDT [facility] Comment: INTERPRETIVE INFORMATION: Zinc, Serum or Plasma [...] developed and its performance characteristics determined by [facility]. It has not been cleared or approved by the US Food and Drug Administration. This test was performed in a CLIA certified laboratory and is intended for clinical purposes. Performed By: [facility] [address] [place] [id number] [employer] Sales Consultant: Ceasar Romero MD, PhD CLIA Number: [id number] Blood BLOOD SPECIMEN / Unknown Venipuncture / Unknown 05/18/2024 11:25 AM CDT 05/18/2024 11:25 AM CDT Miriam Melton APRN [facility] - BLOOD ORDERABL ES Final Result Performing Organization Address [facility]/ZIP Co de Phone Number [facility] [address] [place] [address], [facility] [phone] * 25 Hydroxyvitamin D2 and D3 (05/18/2024 11:25 AM CDT) 25 [place] Vitamin D2 <5 ug/L 05/22/20 24 10:38 AM CDT [facility] 25 [place] Vitamin D3 39 ug/L 05/22/20 24 10:38 AM CDT [facility] 25 [place] Vit D Total <44 20 - 75 ug/L 05/22/2024 10:38 AM CDT [facility] Comment:Season, race, dietar y intake, and treatment affect the concentration of 34-xfwcdei-Ftqrwgo D. Values may decrease during winter months [...] and its performance characteristics determined by the [facility]. It has not been cleared or approved by the FDA. The laboratory is regulated under CLIA as qualified to perform high-complexity testing. This test is used for clinical purposes. It should not be regarded as investigational or for research. Miriam Melton APRN RN ER LAB - BLOOD ORDERABL ES Final Result [facility] [address] [facility], [address] [place] [address] * Vitamin B1 whole blood (05/18/2024 11:25 AM CDT) [facility] Vitamin B1 Whole Blood Level 117 70 - 180 nmol/L 05/22/2024 6:49 AM CDT [email or web address] Comment: INTERPRETIVE INFORMATION: Vitamin B1, Whole Blood This assay measures the concentration of thiamine diphosphate (TDP), the primary active form of vitamin B1. Approximately 90 percent of vitamin B1 present in whole blood is TDP. Thiamine and thiamine monophosphate, which comprise the remaining 10 percent, are not measured. This test was developed and its performance characteristics determined by [facility]. It has not been cleared or approved by the US Food and Drug Administration. This test was performed in a CLIA certified laboratory and is intended for clinical purposes. Performed By: [facility] [address] [place] [address] [employer] Sales Consultant: Ceasar Romero MD, PhD CLIA Number: [id number] Blood BLOOD SPECIMEN / Unknown Venipuncture / Unknown 05/18/2024 11:25 AM CDT 05/18/2024 11:25 AM CDT Miriam Isael Melton APRN [facility] - BLOOD ORDERABL ES Final Result Performing Organization Address City/[facility]/ZIP Co de Phone Number [facility] [employer] [address] [place] [phone], [place] [phone] * Vitamin A (05/18/2024 11:25 AM CDT) Vitamin A 0.81 0.30 - 1.20 mg/L 05/21/2024 11:25 AM CDT [facility] Retinol Palmitate <0.02 0.00 - 0.10 mg/L 05/21/2024 11:25 AM CDT [facility] Vitamin A Interp Normal 05/21/20 11:25 AM CDT [facility] [employer] Comment: This test was developed and its performance characteristics determined by [facility]. It has not been cleared or approved by the US Food and Drug Administration. This test was performed in a CLIA certified laboratory and is intended for clinical purposes. Performed By: [facility] [address] [place], [place] [id number] [employer] Sales Consultant: Ceasar Romero MD, PhD CLIA Number: [id number] Blood BLOOD SPECIMEN / Unknown Venipuncture / Unknown 05/18/2024 11:25 AM CDT 05/18/2024 11:25 AM CDT Miriam Melton APRN [facility] - BLOOD ORDERABL ES Final Result [address] [address], [facility] [phone] * TSH (05/18/2024 11:25 AM CDT) TSH 1.47 0.30 - 4.20 uIU/mL 05/18/2024 4:24 PM CDT [facility] Blood BLOOD SPECIMEN / Unknown Venipuncture / Unknown 05/18/2024 11:25 AM CDT 05/18/2024 11:25 AM CDT Miriam Melton APRN, CNP LAB - BLOOD ORDERABL ES Final Result Performing Organization Address [facility]/ZIP Co de Phone Number [facility] [address] [facility], [address] * Parathyroid Hormone Intact (05/18/2024 11:25 [...] differs from PTH assays used in other [facility] laboratories. Miriam Melton APRN, CNP LAB - BLOOD ORDERABL ES Final Result Performing Organization Address City/[facility] de Phone Number [facility] [address] [facility], [address] * (ABNORMAL) Lipid Profile (05/18/2024 11:25 [...] High: >= 220 mg/dL Miriam Melton APRN RN ER LAB - BLOOD ORDERABL ES Final Result [facility] [address] [facility], [address] [place] [address] * (ABNORMAL) Hemoglobin A1c (05/18/2024 11:25 AM CDT) Estimated Average Glucose 128(H) <117 mg/dL 05/18/2024 11:37 AM CDT [facility] Hemoglobin A1C 6.1(H) 0.0 - 5.6 % 05/18/2024 11:37 AM CDT [facility] Comment: Normal <5.7% Prediabetes 5.7-6.4% Diabetes 6.5% or higher Note: Adopted from ADA consensus guidelines. Blood BLOOD SPECIMEN / Unknown Venipuncture / Unknown 05/18/2024 11:25 AM CDT 05/18/2024 11:25 AM CDT Miriam Melton APRN RN ER LAB - BLOOD ORDERABL ES Final Result [address] * Folate (05/18/2024 11:25 AM CDT) Folic Acid 8.5 4.6 - 34.8 ng/mL 05/18/2024 3:31 PM CDT [facility] Blood BLOOD SPECIMEN / Unknown Venipuncture / Unknown 05/18/2024 11:25 AM CDT 05/18/2024 11:25 AM CDT Miriam Melton APRN, CNP LAB - BLOOD ORDERABL ES Final Result Performing Organization Address City/[facility]/ZIP Co de Phone Number [facility] [address] [facility], [address] * Ferritin (05/18/2024 11:25 AM CDT) Pathologist [facility] Ferritin 13 6 - 175 ng/mL 05/18/2024 4:24 PM CDT [facility] Blood BLOOD SPECIMEN / Unknown Venipuncture / Unknown 05/18/2024 11:25 AM CDT 05/18/2024 11:25 AM CDT Miriam Melton APRN RN ER LAB - BLOOD ORDERABL ES Final Result [facility] [address] [facility], [address] * (ABNORMAL) Comprehensive metabolic panel (05/18/2024 [...] 4:24 PM CDT [facility] Comment:eGFR calculated 2020 CKD-EPI equation. Calcium 9.2 8.8 - [...] ORDERABL ES Final Result Performing Organization Address City/[facility]/ZIP Co de Phone Number LABORATORY [facility] [address] [facility], [address] * Vitamin B12 (05/18/2024 11:25 AM CDT) [facility] Vitamin B12 430 232 - 1,245 pg/mL 05/18/2024 4:24 PM CDT [facility] Blood BLOOD SPECIMEN / Unknown Venipuncture / Unknown 05/18/2024 11:25 AM CDT 05/18/2024 11:25 AM CDT Miriam Melton APRN, CNP LAB - BLOOD ORDERABL ES Final Result Performing Organization Address City/[facility] Co de Phone Number LABORATORY [facility] [address] [facility], [address] * (ABNORMAL) CBC with platelets (05/18/2024 11:25 AM CDT) [facility] WBC Count 7.9 4.0 - 11.0 10e3/uL [...] - 15.0 % 05/18/2024 11:35 AM CDT [facility] Platelet Count 411 150 - 450 10e3/uL 05/18/2024 11:35 AM CDT [facility] Blood BLOOD SPECIMEN / Unknown Venipuncture / Unknown 05/18/2024 11:25 AM CDT 05/18/2024 11:25 AM CDT Miriam Melton APRN RN ER LAB - BLOOD ORDERABL ES Final Result [facility] [address] * Mammogram - HIM Scan (05/02/2024 12:00 AM CDT) Anatomical Region Laterality Modality Other 05/02/2024 Provider Outside IMG MAMMOGRAPHY ORDERABLES Elise l Result * Pap thin layer screen with HPV - recommended age 30 - 65 years (05/07/2021 11:50 AM CDT) Interpretation Negative for Intraepithelial Lesion or Malignancy (NILM) 05/09/2021 2:32 PM CDT [facility] Specimen Adequacy Satisfactory for evaluation, endocervical/paul sformation zone component absent 05/09/2021 2:32 PM CDT [facility] Clinical Information complete hysterectomy 05/09/2021 2:32 PM CDT [facility] Reflex Testing Yes regardless of result 05/09/2021 2:32 PM CDT [facility] Previous Abnormal? No 05/09/2021 2:32 PM CDT [facility] [place] [facility] Performing Labs The technical component of this testing was completed at [facility] 05/09/2021 2:32 PM CDT [facility] Brushing VAGINAL STRUCTURE / Unknown 05/07/2021 11:50 AM CDT 05/07/2021 12:21 PM CDT Alan Shah MD LAB - BEAKER AP Final Result [facility] [address] [place] [address], [facility] [phone] * HPV High Risk Types DNA Cervical (05/07/2021 11:50 AM CDT) Other HR HPV Negative Negative 05/13/2021 2:50 PM CDT [facility] [facility] HPV16 DNA Negative Negative 05/13/2021 2:50 PM CDT [facility] [employer] [facility] HPV18 DNA Negative Negative 05/13/2021 2:50 PM CDT [facility] [employer] FINAL DIAGNOSIS This patient's sample is negative for HPV DNA. This test was developed and its performance characteristics determined by the [facility]. It has not [...] followup is recommended. 05/13/2021 2:50 PM CDT [employer] Brushing VAGINAL STRUCTURE / Unknown Non-blood Collection / Unknown 05/07/2021 11:50 AM CDT 05/12/2021 8:50 AM CDT Alan Shah MD LAB - BLOOD ORDERABLES Final Result [facility] [address] [facility], [address] [place] [address], [facility] [phone] * HIV 1 and 2 rapid screen [...] Date MyC ECC SURG ENROLL 07/17/[address] [place] [id number] [facility] CHOICE Advance Directives For more information, please contact: [phone] * Full Code (Latest Code Status on File) Date Activated Date Inactivated Comments 12/19/2015 3:02 PM 12/20/2015 1:10 PM Care Teams Grey Washer Relationship Specialty Start Date End Date Herson Rhodes MD PCP - General 06/02/11 [facility] [address] [place] [address] Assigned PCP 12/14/[address] [place] [address] Registered Dietitian Dietitian, Registered 06/09/24 Dung Alva, PhD [employer] [facility] [address] [address] Assigned Behavioral Health Provider 06/14/24 Aris Thurman MD [address] [place] [address] Assigned Surgical Provider 07/15/24 Miriam Melton APRN RN ER [address] [place] [address] Nurse Practitioner Surgery 07/19/24
--- OUTSIDE RECORDS SUMMARY | 2024-07-31 09:37 | XMS_ITS | Encounter Summary ---
Author Organization [facility] Address [address] [place] [address]. [place] [address] Care Team Providers Care Lumber Cutter Name Role Phone Herson Rhodes MD Primary Care Provider [facility] Unavailabl e Hien Flood RD Unavailable [phone] Dung Alva PhD Unavailable Aris Thurman MD Unavailable Miriam Melton APRN WATERPROOF BAG SEWER Unavailable [phone]- [phone] Encounter Details Date Type Department Care Team (Late st Contact Info) Description 07/18/2024 [facility] [address] [phone] [facility] Social History Tobacco Use Types Packs/Day Years [...] PM CDT Legal Sex Female 5:06 AM MANAGER STORAGE Gender Identity Female 04/04/2021 10:28 PM CDT Sexual Orientation Straight 04/04/2021 10 :28 PM CDT documented as of this encounter Plan of Treatment Upcoming Encounters Date Type Department Care Team (Late st Contact Info) Description 08/07/2024 10:50 AM MANAGER STORAGE Hospital Encounter [address] [address] Aris Thurman MD [address] [place] [address] 08/07/2024 10:50 AM MANAGER STORAGE - 08/07/2024 1:40 PM MANAGER STORAGE Surgery [address] [address] Aris Thurman MD [address] [place] [id number] CREATION, GASTRIC BYPASS, SRIDHAR-EN-Y, LAPAROSCOPIC 08/15/2024 1:00 PM MANAGER STORAGE Virtual Visit [facility] [address] [address] 08/30/2024 12:30 PM MANAGER STORAGE Virtual Visit [facility] [address] [address] Aris Thurman MD [address] [place] [address] 09/08/2024 11:00 AM MANAGER STORAGE Virtual Visit [facility] [address] [address] Betty Leonardo, ZEINAB [address] [place] [address] 11/06/2024 9:30 AM CDT Virtual Visit [facility] [address] 200 [place] [phone] Dung Alva, PhD [facility] [address] [email or web address] [address] [place] [address] 11/07/2024 9:30 AM CDT Virtual Visit [facility] [address] 200 [place] [address]45 [facility] 200 [place] [address] 02/08/2025 1:30 PM CDT Office Visit [facility] [address] 200 [place] [address] Miriam Melton, DEE WATERPROOF BAG SEWER [address] [place] [address] 05/09/2025 9:30 AM CDT Virtual Visit [facility] [address] 200 [place] [address]45 [facility] 200 [place] [address] 08/09/2025 1:30 PM MANAGER STORAGE Office Visit [facility] [address] 200 [place] [address] Miriam Melton APRN WATERPROOF BAG SEWER [address] [place] [address] Scheduled Procedures Name Priority Associated Diagnoses Date/Ti me CREATION, GASTRIC BYPASS, SRIDHAR-EN-Y, LAPAROSCOPIC Morbid obesity (H) Duodenal stricture 08/07/2024 10:50 AM MANAGER STORAGE documented as of this encounter Goals Goal [...] documented as of this encounter Care Teams Lumber Cutter Relationship Specialty Start Date End Date Herson Rhodes MD PCP - General 06/02/11 [facility] [id number] [place] [address] Assigned PCP 12/14/[address] [place] [address] 200 [place] [address] Registered Dietitian Dietitian, Registered 06/09/24 Dung Alva, PhD [facility] [address] [address] Assigned Behavioral Health Provider 06/14/24 Aris Thurman MD [address] [place] [address] 200 [place] [address] Assigned Surgical Provider 07/15/24 Miriam Melton APRN WATERPROOF BAG SEWER [address] [place] [address] Nurse Practitioner Surgery 07/19/24 documented as of this encounter
--- OUTSIDE RECORDS SUMMARY | 2024-07-31 09:38 | XMS_ITS | Encounter Summary ---
Author Organization [facility] Address [address] [place] [address]. [place] [address] Care Team Providers Care Manager Transport Name Role Phone Herson Rhodes MD Primary Care Provider [facility] Unavailabl e Ed Saenz MD Unavailable [phone] Unavailable Encounter Details Date Type Department Care Team (Late st Contact Info) Description 06/09/2024 10:00 AM CDT Virtual Visit [facility] Clinic and Bariatrics Care [place] [address] [place] [address] 200 [place] [phone] Hien Flood, ZEINAB [address] [address] Morbid obesity with BMI of [...] PM CDT Legal Sex Female 5:06 AM RETAIL ACCOUNT REPRESENTATIVE Gender Identity Female 04/04/2021 10:28 PM CDT Sexual Orientation Straight 04/04/2021 10 :28 PM CDT documented as of this encounter Patient Instructions * Patient Instructions* Hien Flood, ZEINAB - 06/09/2024 10:00 AM CDT Apps for Tracking: Fooducate (free version, extra cost for premium) MyFitnessPal (free version, extra cost for premium) Calory (free version, extra cost for premium) Lose It! (free version, extra cost for premium) MyNetDiary (free version, extra cost for premium) Cronometer (free version, extra cost for premium) Lifesum (free version, extra cost for premium) Spokin (for food allergies) mySymptoms (for food intolerances) Fig (scanning foods for food allergies and intolerances) Baritastic (bariatric surgery pre/post-op) PREPARING FOR WEIGHT-LOSS SURGERY Lifestyle Changes Before and After Weight Loss Surgery: [place] for Success Diet Guidelines after Weight Loss Surgery Portion Control Without Measuring Modified Liquid Diet (2 liquid meals, 1 dinner, 2 snacks) Tips for Weight Loss and Weight Management Mindful Eating Create a Plate My Plate Sources of Protein Food Label: The 10-10 Rule Making Sense of Food Labels Daily Food and Exercise Log Eating Journal Exercise Planning Form - Setting Goals Supplements after Sleeve Gastrectomy, Gastric Bypass or Single Anastomosis Duodenal Switch Protein Supplements *Avoid protein supplements with caffeine for first 3 months post op Type Serving Calories Protein Grams Sugar Grams Where Available Muscle Milk Pro Series Shake 1 bottle 170 32 1 [facility], Target Premier Protein Shake 1 bottle 160 30 1 Mark's/Costco [facility], Target, Cub Equate High Performance Shake 1 bottle 160 30 1 [facility] Impraise Nutrition Plan Shake 1 bottle 150 30 2 [employer], [facility] Ensure Max Protein Shake 1 bottle 150 30 1 [facility], Target Impraise Core Power Shake 1 bottle 170 26 5 [facility] Pure Protein Shake 1 bottle 110-170 23 1 Information Technology Security Analyst Marcial's, [facility], Target Slim Fast High Protein Shake 1 bottle 180 20 1 [facility], Target, Grocery/Pharmacy 100kcal Muscle Milk Shake 1 bottle 100 20 0 [facility], Target, [facility],Grocery/Pharmacy Debbie's Lift Water 1 bottle 90 20 0 [facility], Target Isopure Zero Carb Water ?? bottle 80 20 0 [employer], Vitamin Shoppe, online Premier Protein Clear Water 1 bottle 90 20 0 [facility] Unjury Protein+ Powder 1 scoop 90 20 0 www.nanoPay inc. www.Talknote Advantage Shake 1 bottle 160 15-17 1 [facility], Target Grocery/Pharmacy 100kcal Muscle Milk Powder 1 scoop 100 15 0 [facility], musclemilk.com Protein 2-0 Water 1 bottle 60-70 15 0 [facility] Pharm[facility] Plant-Based Protein Supplements Type Serving Calories Protein Grams Sugar Grams Where Available Deemelo of [place] Raw Protein Powder Powder 1 scoop 110 22 0 Whole Foods, Vitamin Shoppe, wwwSynqera Orgain Organic Protein Powder Powder 2 scoops 150 21 0 Target, [facility], Costco Planted by Unjury Powder 1 scoop 130 20 3 www.nanoPay inc. wwwSynqera Protein and Greens by Kurtz Powder 1 scoop 120 20 0 [facility], Target, Grocery/Pharmacy Essentials Shake by Kurtz Powder 1 scoop 130 20 0 [facility], Target, Grocery/Pharmacy Plant Fusion Orgain Plant Protein Powder 1 scoop 120 20 0 www.plantfusion.net Orgain Grass Fed Shake Shake 1 bottle 140 20 4 Target, [facility] Evolve Shake 1 bottle 150 20 4 Target, Lunds, [facility] Sun [place] Powder 1 scoop 100 17-18 0 [employer], Whole Foods Whole Foods Fit Protein Powder 1 scoop 110 17 0 Whole Foods Deemelo of [place] Plant Protein Powder 1 scoop 90 15 0 Whole Foods, Vitamin Shoppe, wwwSynqera Look for (per serving): -100-200 calories -15-30 grams protein -Less than 10 grams total carbohydrate -10/10 Rule The most common phytoestrogens are: Coumestan Isoflavones Lignans Stilbene Foods containing high levels of these specific phytoestrogens include: Fruits, including apples, berries, grapes, peaches, pears, plums Grains, such as barley, oats, wheat germ Liquids derived from plants, specifically beer, coffee, olive oil, red wine, tea Nuts and Seeds, including almonds, flaxseeds, peanuts, sesame seeds, sunflower seeds Soy and soy products, such as soybeans, tofu, miso soup, miso paste Vegetables, particularly broccoli, Pigeon sprouts, kale, onions, spinach, sprouts Research suggests that phytoestrogens provide health benefits if you consume an average of 50 mg daily. That???s about ??-cup of boiled soybeans. documented in this encounter Progress Notes * Hien Flood RD - 06/09/2024 10:00 AM CDT Sofia Iyer is a 43 year old who is being evaluated via a billable video visit. How would you like to obtain your AVS? MyChart If the video visit is dropped, the invitation should be resent by: Text to cell phone: [phone] Will anyone else be joining your video [...] bariatric outcomes. Surgery of interest per pt: gastric bypass Workflow review: Support Group: - May Psychology:In progress. Lab work:Completed. SWL:No Weight goal: At or below initial. Anthropometrics: Pt's weight is 298 lbs Initial weight: 298 lbs Weight change: - BMI: 49.59 Evans body weight: 57 kg (125 lb 10.6 oz) Adjusted ideal body weight: 88.3 kg (194 lb 9.6 oz) Medical History: Patient Active Problem List Diagnosis Spondylarthrosis Sacroiliac joint pain Chronic low back pain Degenerative arthritis of cervical spine Anxiety associated with depression Overweight Muscular deconditioning Endometriosis Vaginal Pap smear Obesity (BMI 35.0-39.9) with comorbidity (H) Diabetes: A1C of *Met with the SD RD on 06/05 for initial bariatric visit Progress over past month: Patient is taking 50 mcg vitamin D currently. Patient ordered small silverware and portion plates to help with portions sizes and pace of eating. Patient got Premier Proteinshakes - using as snacks between meals. Patient has a couple of friends and family GOALS: Continue to wean off pop Practice avoiding fluids during meals and 30 minutes after the meal Take 15-20 minutes for meals/ chew all food to apple sauce texture Diet Recall/Time *acid reflux and avoids: spicy foods, citrus, tomato products, red meat Meal duration: has been more mindful of pace of eating fluids by 30 minutes before, during meal, and waiting 30 minutes after meal before drinking fluids: Yes - using a timer Beverages Water with SF flavoring - 24 ounce bottle - 6 bottles/day No coffee intake, energy drinks (green tea sparkling energy drinks), sparkling water Limited milk intake Pop - cut out! Santiago Tea - cut out! Exercise Busy with her kids, walking, going to the gym to walk the [...] citrate 400-600 mg two times a day, 1927-2198 mcg sublingual B12 daily, 5000 IU vitamin [...] is drinking fluids and fluids from meals Handouts Provided: real trendsview Bariatric Surgery Nutrition Info Food journal Food label Protein supplement list High estrogen foods Monitor/Evaluation: Pt.???s target weight: no gain from initial visit, pt. verbalized understanding. Plan for next visit: Bariatric plate. Give food journal homework. Review Bariatric plate and food journal homework. Educate on dumping syndrome and reading food labels. (Final supervised diet visit with RD) pre/post-op diet progression, give review of surgery process. Video-Visit Details Type of service: Video Visit Video Start Time (time video started): 9:57 AM Video End Time (time video stopped): 10:17 AM Originating Location (pt. Location): Home Distant Location (provider location): Off-site Mode of Communication: Video Conference via VeriFone Physician has received verbal consent for a Video Visit from the patient? Yes Hien Flood RD documented in this encounter Plan of Treatment Upcoming Encounters Date Type Department Care Team (Late st Contact Info) Description 08/07/2024 10:50 AM RETAIL ACCOUNT REPRESENTATIVE Hospital Encounter [address] [phone] [place] [address] [place] [address] 08/07/2024 10:50 AM RETAIL ACCOUNT REPRESENTATIVE - 08/07/2024 1:40 PM RETAIL ACCOUNT REPRESENTATIVE Surgery [address] [address] Aris Thurman MD [address] [place] [address] CREATION, GASTRIC BYPASS, SRIDHAR-EN-Y, LAPAROSCOPIC 08/15/2024 1:00 PM RETAIL ACCOUNT REPRESENTATIVE Virtual Visit [facility] Care [address] [address] 08/30/2024 12:30 PM RETAIL ACCOUNT REPRESENTATIVE Virtual Visit [facility] [address] [address] Aris Thurman MD [address] [place] [address] 09/08/2024 11:00 AM RETAIL ACCOUNT REPRESENTATIVE Virtual Visit [facility] [address] [address] Betty Leonardo, ZEINAB [address] [place] [address] 11/06/2024 9:30 AM CDT Virtual Visit [facility] [address] [address] Dung Alva, PhD RONNA AND [email or web address] [address] [place] 200 [place] [address] 11/07/2024 9:30 AM CDT Virtual Visit [facility] [address] 200 [place] [address] Hien Flood, ZEINAB 2945 [facility] 200 [place] [address] 02/08/2025 1:30 PM CDT Office Visit [facility] [address] 200 [place] [address] Miriam Melton, DEE WEATHER [employer]CASTER [address] [place] [address] 05/09/2025 9:30 AM CDT Virtual Visit [facility] [address] 200 [place] [address] Hien Flood, ZEINAB 2945 [facility] 200 [place] [address] 08/09/2025 1:30 PM RETAIL ACCOUNT REPRESENTATIVE Office Visit [facility] [address] 200 [place] [address] Miriam Melton APRN WEATHER [employer]CASTER [address] [place] [address] Scheduled Procedures Name Priority Associated Diagnoses Date/Ti me CREATION, GASTRIC BYPASS, SRIDHAR-EN-Y, LAPAROSCOPIC Morbid obesity (H) Duodenal stricture 08/07/2024 10:50 AM RETAIL ACCOUNT REPRESENTATIVE documented as of this encounter Visit Diagnoses Diagnosis Morbid obesity with BMI of 45.0-49.9, adult (H)- Primary Pre-bariatric surgery nutrition evaluation Dietary surveillance and counseling Morbid obesity (H) Morbid obesity Duodenal stricture Other obstruction of duodenum documented in this encounter Additional Health Concerns Assessment Noted Time PHQ-9 Depression Total Score: 2 05/07/20 21 11:37 AM CDT documented as of this encounter Care Teams Manager Transport Relationship Specialty Start Date End Date Herson Rhodes MD PCP - General 06/02/11 [facility] [address] [place] [address] Assigned PCP 12/14/23 Ed Saenz MD [address] [place] [address] Assigned Surgical Provider 05/15/24 06/13/[address] [place] [id number] Registered Dietitian Dietitian, Registered 06/09/24 documented as of this encounter
--- OUTSIDE RECORDS SUMMARY | 2024-07-31 09:38 | XMS_ITS | Encounter Summary ---
Author Organization [facility] Address [address] [place] [address]. [place] [address] Care Team Providers Care Glass Cutter Helper Name Role Phone Herson Rhodes MD Primary Care Provider [facility] Unavailabl e Ed Saenz MD Unavailable [phone] Encounter Details Date Type Department Care Team (Late st Contact Info) Description 06/02/2024 [facility] Surgery Clinic and Bariatrics Care [address] [place] [phone] Radha Brown Social History Tobacco Use [...] PM CDT Legal Sex Female 5:06 AM BLASTING MINER Gender Identity Female 04/04/2021 10:28 PM CDT Sexual Orientation Straight 04/04/2021 10 :28 PM CDT documented as of this encounter Miscellaneous Notes * Telephone Encounter - Viktoriya Arce RN - 06/02/2024 8:50 AM CDT Tasklist updated. Viktoriya Arce RN, CBN [facility] P [phone] F [phone] * Telephone Encounter - Radha Brown - 06/02/2024 8:28 AM CDT I spoke with Sofia this morning about her insurance and program requirements. She has UMR and states she was told that she has no SWL requirements. She will need to be cleared with psych and nutrition. I have scheduled her with the RD at [place] for May to get her started. Scheduled with Hien for the end of June but is on the waitlist for an earlier appt. She attended support group on with Dung. She had a mammogram in April. She will call to schedule a pap. She quit smoking on January 21 and says she's doing well with this. I did let her know that once she's cleared and prior to meeting with her surgeon we will send her for a nicotine screen. documented in this encounter Plan of Treatment Upcoming Encounters Date Type Department Care Team (Late st Contact Info) Description 08/07/2024 10:50 AM BLASTING MINER Hospital Encounter [address] [phone] Aris Thurman MD [address] [place] [address] 08/07/2024 10:50 AM BLASTING MINER - 08/07/2024 1:40 PM BLASTING MINER Surgery [address] [address] Aris Thurman MD [address] [place] [address] CREATION, GASTRIC BYPASS, SRIDHAR-EN-Y, LAPAROSCOPIC 08/15/2024 1:00 PM BLASTING MINER Virtual Visit [facility] Surgery Clinic and Bariatrics Care [place] [address] [facility] 200 [place] [address] 08/30/2024 12:30 PM BLASTING MINER Virtual Visit [facility] Clinic and Bariatrics Care [address] 200 [place] [address] Aris Thurman MD 2945 [facility] 200 [place] [address] 09/08/2024 11:00 AM BLASTING MINER Virtual Visit [facility] Care [address] 200 [place] [address] Betty Leonardo, RD 2945 [facility] 200 [place] [address] 11/06/2024 9:30 AM CDT Virtual Visit [facility] Surgery Clinic and Bariatrics Care [address] 200 [place] [address] Dung Alva, PhD RONNA [facility] [address] [facility] [place] 200 [place] [address] 11/07/2024 9:30 AM CDT Virtual Visit [facility] Surgery Clinic and Bariatrics Care [address] 200 [place] [address] Hien Flood, RD 2945 [facility] 200 [place] [address] 02/08/2025 1:30 PM CDT Office Visit [facility] and Bariatrics Care [address] 200 [place] [address] Miriam Melton APRN SUSTAINABILITY ENGINEER 2945 [facility] 200 [place] [address] 05/09/2025 9:30 AM CDT Virtual Visit [facility] Clinic and Bariatrics Care [place] [address] [facility] 200 [place] [address] Hien Flood, ZEINAB 2945 [facility] [address] [place] [address] 08/09/2025 1:30 PM BLASTING MINER Office Visit [facility] Surgery Clinic and Bariatrics Care [place] [address] [place] [address] 200 [place] [phone] Miriam Melton APRN SUSTAINABILITY ENGINEER [address] [facility] [address] [place] [address] Scheduled Procedures Name Priority Associated Diagnoses Date/Ti me CREATION, GASTRIC BYPASS, SRIDHAR-EN-Y, LAPAROSCOPIC Morbid obesity (H) Duodenal stricture 08/07/2024 10:50 AM BLASTING MINER documented as of this encounter Visit Diagnoses Not on filedocumented in this encounter Additional Health Concerns Assessment Noted Time PHQ-9 Depression Total Score: 2 05/07/20 21 11:37 AM CDT documented as of this encounter Care Teams Glass Cutter Helper Relationship Specialty Start Date End Date Herson Rhodes MD PCP - General 06/02/11 [facility] [address] [place] [address] Assigned PCP 12/14/23 Ed Saenz MD [address] [place] [address] [address] [place] [address] Assigned Surgical Provider 05/15/24 documented as of this encounter
--- OUTSIDE RECORDS SUMMARY | 2024-07-31 09:38 | XMS_ITS | Encounter Summary ---
Author Organization [facility] Address [address] [place] [address]. [place] [address] Care Team Providers Care Information Assoc Name Role Phone Herson Rhodes MD Primary Care Provider [facility] Unavailabl e Ed Saenz MD Unavailable [phone] Encounter Details Date Type Department Care Team (Late st Contact Info) Description 06/05/2024 11:00 AM CDT Virtual Visit [facility] [address] [place] [address] 1, Sh Keegan Garland RD Obesity (Primary Dx) Social History Tobacco Use Types [...] PM CDT Legal Sex Female 5:06 AM ASSISTANT BUSINESS MANAGER Gender Identity Female 04/04/2021 10:28 PM CDT Sexual Orientation Straight 04/04/2021 10 :28 PM CDT documented as of this encounter Patient Instructions * Patient Instructions* Arjun Zamudio RD, LD - 06/05/2024 11:00 AM CDT Claudio Black- Welcome to the [facility], [place]! It was great to visit with you and learn about your interest in weight loss surgery. Below are the goals we discussed. GOALS: Continue to wean off pop Practice avoiding fluids during meals and 30 minutes after the meal Take 15-20 minutes for meals/ chew all food to apple sauce texture Nutrition Educational Materials: Your Stage 1 Diet: Clear Liquids Your Stage 2 Diet: Low-fat Full Liquids Your Stage 3 Diet: Pureed Foods Your Stage 4 Diet: Soft Foods Your Stage 5 Diet: Regular Foods Diet Guidelines after Weight-Loss Surgery Supplements after Sleeve Gastrectomy, Gastric Bypass or Single Anastomosis Duodenal Switch Surgery Please let us know if you have questions/ concerns before your next visit by sending a [employer] message to your provider. Thanks! Arjun Zamudio RD, LD [facility] [place] documented in this encounter Progress Notes * Arjun Zamudio RD, LD - 06/05/2024 11:00 AM CDT Sofia is a 43 year old who is being evaluated via a billable video visit. The patient has been notified of following: This video visit will be conducted via a call between you and your physician/provider. We have found that certain health care needs can be provided without the need for an in-person physical exam. This service lets us provide the care you need with a video conversation. If a prescription is necessary we can send it directly to your pharmacy. If lab work is needed we can place an order for that and you can then stop by our lab to have the test done at a later time. Video visits are billed at different rates depending on your insurance coverage. Please reach out to your insurance provider with any questions. If during the course of the call the physician/provider feels a video visit is not appropriate, youwill not be charged for this service. Patient has given verbal consent for Video visit? Yes How would you like to obtain your AVS? MyChart If the video visit is dropped, the invitation should be resent by: Text to cell phone: [phone] Will anyone else be joining your video visit? No I Video-Visit Details Type of service: Video Visit Originating Location (pt. Location): Home Distant Location (provider location): Off-Site - Provider Home Office Platform used for Video Visit: [employer] Video Start Time: 11:06 Video End Time: 11:54 New Bariatric Nutrition Consultation Note Reason For Visit: Nutrition Assessment Sofia Iyer is a 43 year old presenting today for new bariatric nutrition consult. Pt is interested in laparoscopic gastric bypass. Patient is accompanied by self. 05/13/2024 10:11 AM Support System Reviewed With Patient Who do you have in your support network that can be available to help you for the first 2 weeks after surgery? , sister, therapist, mom, friends Who can you count on for support throughout your weight loss surgery journey? , sister, therapist, mom, friends ANTHROPOMETRICS: Estimated body mass index is 49.59 kg/m?? as calculated from the following: Height as of 05/18/24: 5' 5 (1.651 m). Weight as of 05/18/24: 298 lb (135.2 kg). Required weight loss goal pre-op: 298 lb (maintenance) 05/13/2024 10:11 AM -- I have tried the following methods to lose weight Watching portions or calories Exercise OTC Medications Prescription Medications 05/13/2024 10:11 AM Weight Loss Questions Reviewed With Patient How long have you been overweight? Since late 20's to early 40's SUPPLEMENT INFORMATION: Vitamin D (not sure of dose) 1 Women's gumi multivitamin Zelaya not get periods NUTRITION HISTORY: 05/13/2024 10:11 AM-with edits provided by patient Recall Diet Questions Reviewed With Patient Describe what you typically consume for breakfast (typical or most recent) Eggs or Yogurt or cottage cheese or Belvita bar with fruit Describe what you typically consume for lunch (typical or most recent) Salad- lettuce, tomato, radishes, cumber, shredded chicken or ham, Tristanian or ranch dressing Describe what you typically consume for supper (typical or most recent) Chicken, broccoli, rice Describe what you typically consume as snacks (typical or most recent) Nuts, fruit, yogurt-2X per day How many ounces of water, or other low calorie drinks, do you drink daily (8 oz=1 glass)? 64 oz or more How many ounces of caffeine (coffee, tea, pop) do you drink daily (8 oz=1 glass)? 24 oz-donnie tea latte- has cut back How many ounces of carbonated (pop, beer, sparkling water) drinks do you drinky daily (8 oz=1 glass)? 16 oz-every other day How many ounces of juice, pop, sweet tea, sports drinks, protein drinks, other sweetened drinks, doyou drink daily (8 oz=1 glass)? 0 oz How many ounces of milk do you drink daily (8 oz=1 glass) 8 oz Please indicate the type of milk 1% How often do you drink alcohol? Never Apple pom juice some days 05/13/2024 10:11 AM Eating Habits What foods do you crave? Pasta, steak, potoes, EATING BEHAVIORS: 05/13/2024 10:11 AM Have you or anyone else thought that you had an eating disorder? No Do you currently binge eat (eat a large amount of food in a short time)? No Are you an emotional eater? No Do you get up to eat after falling asleep? No Can you afford 3 meals a day? Yes Can you afford 50-60 dollars a month for vitamins? Yes ADDITIONAL INFORMATION: Patient lives with spouse and 3 kids (ages 14, 13 and 10). Spouse or patient share the meal planning/cooking. Patient struggles with acid reflux and avoids: spicy foods, citrus, tomato products, red meat. Want to have weight loss surgery to improve mobility (can not put shoes on) and prevent further health issues. Per provider note on 05/18/24: Pyloric stenosis requiring multiple balloon dilations that GI feels will not heal. She met with Dr. Saenz to discuss surgical options and he recommended a RNY gastric bypass that would address both her issues with pyloric stenosis and morbid obesity. 05/13/2024 10:11 AM Dining Out History Reviewed With Patient How often do you dine out? Around once a week. Where do you dine out? (select all that apply) take out What types of food do you order when you dine out? Salad, rice chicken bowel 05/13/2024 10:11 AM Physical Activity Reviewed With Patient How often do you exercise? 1 to 2 times per week What is the duration of your exercise (in minutes)? 45 Minutes What types of exercise do you do? walking gym membership What keeps you from being more active? I am as active as I can possbily be Pain My ability to walk or move around is limited NUTRITION DIAGNOSIS: Obesity r/t long history of self-monitoring deficit and excessive energy intake aeb BMI >30 kg/m2. INTERVENTION: Intervention Provided/Education Provided on post-op diet guidelines, vitamins/minerals essential post-operatively, GI anatomy of bariatric surgeries, ways to help prepare for post-op diet guidelines pre-operatively, portion/calorie-control. Provided pt with list of goals RD contact information. 05/13/2024 10:11 AM Questions Reviewed With Patient How ready are you to make changes regarding your weight? Number 1 = Not ready at all to make changes up to 10 = very ready. 10 How confident are you that you can change? 1 = Not confident that you will be successful making changes up to 10 = very confident. 10 Patient Understanding: fair-good Expected Compliance: fair-good GOALS: Continue to wean off pop Practice avoiding fluids during meals and 30 minutes after the meal Take 15-20 minutes for meals/ chew all food to apple sauce texture Follow-Up: Recommend 2-3 follow up visits to assist with lifestyle changes or per insurance. Time spent with patient: [address], LD [facility] encounter Plan of Treatment Upcoming Encounters Date Type Department Care Team (Late st Contact Info) Description 08/07/2024 10:50 AM ASSISTANT BUSINESS MANAGER Hospital Encounter [address] [phone] Aris Thurman MD [address] [place] [id number] 08/07/2024 10:50 AM ASSISTANT BUSINESS MANAGER - 08/07/2024 1:40 PM ASSISTANT BUSINESS MANAGER Surgery [address] [phone] [place] [address] [place] [id number] CREATION, GASTRIC BYPASS, SRIDHAR-EN-Y, LAPAROSCOPIC 08/15/2024 1:00 PM ASSISTANT BUSINESS MANAGER Virtual Visit [facility] [address] [address] 08/30/2024 12:30 PM ASSISTANT BUSINESS MANAGER Virtual Visit [facility] [address] [phone] Aris Thurman MD [address] [place] [address] 09/08/2024 11:00 AM ASSISTANT BUSINESS MANAGER Virtual Visit [facility] [address] [phone] Betty Leonardo, RD [facility] [address] [address] 11/06/2024 9:30 AM CDT Virtual Visit [facility] [address] [phone] Dung Alva, PhD [employer] [facility] [address] [address] 11/07/2024 9:30 AM CDT Virtual Visit [facility] [address] [phone] Hien Flood, RD [facility] [address] [address] 02/08/2025 1:30 PM CDT Office Visit [facility] [address] 200 [place] [address] Miriam Melton, DEE AIR ANALYSIS ENGINEERING TECHNICIAN 2945 [facility] 200 [place] [address] 05/09/2025 9:30 AM CDT Virtual Visit [facility] and [facility] [address] 200 [place] [phone] Hien Flood, ZEINAB 2945 [facility] 200 [place] [address] 08/09/2025 1:30 PM ASSISTANT BUSINESS MANAGER Office Visit [facility] Surgery [facility] and [facility] [address] [place] [address] Miriam Melton, DEE AIR ANALYSIS ENGINEERING TECHNICIAN [address] [place] [address] Scheduled Procedures Name Priority Associated Diagnoses Date/Ti me CREATION, GASTRIC BYPASS, SRIDHAR-EN-Y, LAPAROSCOPIC Morbid obesity (H) Duodenal stricture 08/07/2024 10:50 AM ASSISTANT BUSINESS MANAGER documented as of this encounter Visit Diagnoses Diagnosis Obesity- Primary Obesity, unspecified Morbid obesity (H) Morbid obesity Duodenal stricture Other obstruction of duodenum documented in this encounter Additional Health Concerns Assessment Noted Time PHQ-9 Depression Total Score: 2 05/07/20 21 11:37 AM CDT documented as of this encounter Care Teams Information Assoc Relationship Specialty Start Date End Date Herson Rhodes MD PCP - General 06/02/11 Clinic - [facility] [address] [place] [address] Assigned PCP 12/14/23 Ed Saenz MD [facility] [address] [address] Assigned Surgical Provider 05/15/24 documented as of this encounter
--- OUTSIDE RECORDS SUMMARY | 2024-07-31 09:38 | XMS_ITS | Encounter Summary ---
Author Organization [facility] Address [address] [place] [address]. [place] [address] Care Team Providers Care Secretary Specialist Name Role Phone Herson Rhodes MD Primary Care Provider [facility] e Encounter Details Date Type Department Care [...] PM CDT Legal Sex Female 5:06 AM PHOTOGRAPHER FINISH Gender Identity Female 04/04/2021 10:28 PM CDT Sexual Orientation Straight 04/04/2021 10 :28 PM CDT documented as of this encounter Plan of Treatment Upcoming Encounters Date Type Department Care Team (Late st Contact Info) Description 08/07/2024 10:50 AM PHOTOGRAPHER FINISH Hospital Encounter [facility] [address] [place] [address] Aris Thurman MD [address] [place] [address] 08/07/2024 10:50 AM PHOTOGRAPHER FINISH - 08/07/2024 1:40 PM PHOTOGRAPHER FINISH Surgery [facility] [address] [place] [address] Aris Thurman MD 2945 [facility] 200 [place] [address] CREATION, GASTRIC BYPASS, SRIDHAR-EN-Y, LAPAROSCOPIC 08/15/2024 1:00 PM PHOTOGRAPHER FINISH Virtual Visit [facility] and [facility] Care [address] [place] [address] 08/30/2024 12:30 PM PHOTOGRAPHER FINISH Virtual Visit [facility] [address] [place] [address] [place] [address] [place] [address] 200 [place] [address] 09/08/2024 11:00 AM PHOTOGRAPHER FINISH Virtual Visit [facility] [address] [place] [address] Betty Leonardo, RD 2945 [facility] 200 [place] [address] 11/06/2024 9:30 AM CDT Virtual Visit [facility] [address] [place] [address] Dung Alva, PhD RONNA AND [employer] [facility] [address] [facility] 200 [place] [address] 11/07/2024 9:30 AM CDT Virtual Visit [facility] [address] [place] [address] Hien Flood, RD 2945 [facility] 200 [place] [address] 02/08/2025 1:30 PM CDT Office Visit [facility] [address] [phone] Miriam Melton, MARINE DIESEL TECHNICIAN PROSPECT MANAGER [address] [place] [address] 05/09/2025 9:30 AM CDT Virtual Visit [facility] [address] [phone] Hien Flood, RD [address] [address] 08/09/2025 1:30 PM PHOTOGRAPHER FINISH Office Visit [facility] [address] [phone] Miriam Melton, MARINE DIESEL TECHNICIAN PROSPECT MANAGER [address] [place] [address] Scheduled Procedures Name Priority Associated Diagnoses Date/Ti me CREATION, GASTRIC BYPASS, SRIDHAR-EN-Y, LAPAROSCOPIC Morbid obesity (H) Duodenal stricture 08/07/2024 10:50 AM PHOTOGRAPHER FINISH documented as of this encounter Visit Diagnoses Not on filedocumented in this encounter Additional Health Concerns Assessment Noted Time PHQ-9 Depression Total Score: 2 05/07/20 21 11:37 AM CDT documented as of this encounter Care Teams Secretary Specialist Relationship Specialty Start Date End Date Herson Rhodes MD PCP - General 06/02/11 Clinic - [facility] [address] [place] [address] Assigned PCP 12/14/23 documented as of this encounter
--- OUTSIDE RECORDS SUMMARY | 2024-07-31 09:38 | XMS_ITS | Encounter Summary ---
Author Organization [facility] Address [address] [place] [address]. [place] [address] Care Team Providers Care Recycling Operations Manager Name Role Phone Herson Rhodes MD Primary Care Provider Alan Shah MD Unavailable [phone] Betty Stevens NP Unavailable Unavailable [facility] Unavailabl e Ed Saenz MD Unavailable [phone] Unavailable [phone] Miriam Melton APRN SUPERVISOR MACHINING Unavailable + [phone] Dung Alva PhD Unavailable [phone] Aris Thurman MD Unavailable [phone] Miriam Melton APRN SUPERVISOR MACHINING Unavailable + [phone] Encounter Details Date Type Department Care Team (Late st Contact Info) Description 12/05/2019 MyC Medical Advice [facility] [address] [address] Radha Roblero MD 2037 [facility] [address] [place] [address] Social History Tobacco Use Types Packs/Day Years Used Date Smoking Tobacco: Former Cigarettes Q uit: 08/23/2010 Smokeless Tobacco: Never Alcohol Use Standard Drinks/Week Comments Yes 0 (1 standard drink = 0.6 oz pur e alcohol) 1/month PHQ-2 Answer Date Recorded PHQ-2 Score 0 08/31/2018 Comments No Sex and Gender Information Value Date Recorded Sex Assigned at Female 04/04/2021 10:28 PM CDT Legal Sex Female 5:06 AM GEOMAGNETICIAN Gender Identity Female 04/04/2021 10:28 PM CDT Sexual Orientation Straight 04/04/2021 10 :28 PM CDT documented as of this encounter Plan of Treatment Upcoming Encounters Date Type Department Care Team (Late st Contact Info) Description 08/07/2024 10:50 AM GEOMAGNETICIAN Hospital Encounter [address] [phone] Aris Thurman MD [address] [place] [address] 08/07/2024 10:50 AM GEOMAGNETICIAN - 08/07/2024 1:40 PM GEOMAGNETICIAN Surgery [address] [address] Aris Thurman MD [address] [place] [address] CREATION, GASTRIC BYPASS, SRIDHAR-EN-Y, LAPAROSCOPIC 08/15/2024 1:00 PM GEOMAGNETICIAN Virtual Visit [facility] and Bariat[facility] Care [address] [address] 08/30/2024 12:30 PM GEOMAGNETICIAN Virtual Visit [facility] [address] [place] [address] Aris Thurman MD [address] [place] [address] 09/08/2024 11:00 AM GEOMAGNETICIAN Virtual Visit [facility] [address] 200 [place] [address] Betty Leonardo, RD 2945 [facility] 200 [place] [address] 11/06/2024 9:30 AM CDT Virtual Visit [facility] Care [address] [place] [address] Dung Alva, PhD RONNA AND [employer] [facility] [address] [place] [address] 11/07/2024 9:30 AM CDT Virtual Visit [facility] [address] [address] [address] 02/08/2025 1:30 PM CDT Office Visit [facility] [address] [address] Miriam Melton, ELEVATOR STARTER SUPERVISOR MACHINING [address] [place] [address] 05/09/2025 9:30 AM CDT Virtual Visit [facility] [address] [address] [address] 08/09/2025 1:30 PM GEOMAGNETICIAN Office Visit [facility] [address] [place] [phone] Miriam Melton APRN SUPERVISOR MACHINING [address] [place] [address] Scheduled Procedures Name Priority Associated Diagnoses Date/Ti me CREATION, GASTRIC BYPASS, SRIDHAR-EN-Y, LAPAROSCOPIC Morbid obesity (H) Duodenal stricture 08/07/2024 10:50 AM GEOMAGNETICIAN documented as of this encounter Visit Diagnoses Not on filedocumented in this encounter Additional Health Concerns Assessment Noted Time PHQ-9 Depression Total Score: 10 019 2:14 PM GEOMAGNETICIAN documented as of this encounter Care Teams Recycling Operations Manager Relationship Specialty Start Date End Date Herson Rhodes MD PCP - General 06/02/11 [place] [address] [place] [address] Assigned OBGYN Provider 06/14/20 Betty Stevens NP Assigned PCP 01/28/23 12/13/23 [facility] [address] [place] [address] Assigned PCP 12/14/23 Ed Saenz MD [address] [place] [address] Assigned Surgical Provider 05/15/24 06/13/[address] [place] [address] Registered Dietitian Dietitian, Registered 06/09/24 Miriam Melton APRN SUPERVISOR MACHINING 2945 [facility] 200 [place] [address] Assigned Surgical Provider 06/14/24 07/14/24 Dung Alva, PhD [employer] [facility] [address] [place] [address] Assigned Behavioral Health Provider 06/14/24 Aris Tuhrman MD 2945 [facility] 200 [place] [address] Assigned Surgical Provider 07/15/24 Miriam Melton APRN SUPERVISOR MACHINING [facility]5 [facility] 200 [place] [address] Nurse Practitioner Surgery 07/19/24 documented as of this encounter
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
--- OUTSIDE RECORDS SUMMARY | 2024-07-31 09:38 | XMS_ITS | Encounter Summary ---
Author Organization [place] Address [address] [place] [address]. [place] [address] Care Team Providers Care Loan Supervisor Name Role Phone Herson Rhodes MD Primary Care Provider [phone] [facility] Ed Saenz MD Unavailable [phone] Encounter Details Date Type Department Care Team (Latest Contact Info) Description 06/02/2024 Travel Social History Tobacco Use Types Packs/Day [...] PM CDT Legal Sex Female 5:06 AM INTEGRATED CIRCUIT FABRICATOR Gender Identity Female 04/04/2021 10:28 PM CDT Sexual Orientation Straight 04/04/2021 10 :28 PM CDT documented as of this encounter Plan of Treatment Upcoming Encounters Date Type Department Care Team (Late st Contact Info) Description 08/07/2024 10:50 AM INTEGRATED CIRCUIT FABRICATOR Hospital Encounter [facility] [address] [place] [address] Aris Thurman MD [address] [place] [address] 08/07/2024 10:50 AM INTEGRATED CIRCUIT FABRICATOR - 08/07/2024 1:40 PM INTEGRATED CIRCUIT FABRICATOR Surgery [facility] 15[address] [place] [address] [place] [address] [place] [address] CREATION, GASTRIC BYPASS, SRIDHAR-EN-Y, LAPAROSCOPIC 08/15/2024 1:00 PM INTEGRATED CIRCUIT FABRICATOR Virtual Visit [facility] [address] [address] 08/30/2024 12:30 PM INTEGRATED CIRCUIT FABRICATOR Virtual Visit [facility] [address] [address] Aris Thurman MD [address] [place] [address] 09/08/2024 11:00 AM INTEGRATED CIRCUIT FABRICATOR Virtual Visit [facility] [address] [address] Betty Leonardo, RD [address] [address] 11/06/2024 9:30 AM CDT Virtual Visit [facility] [address] [address] Dung Alva, PhD RONNA AND [facility] [address] [address] 11/07/2024 9:30 AM CDT Virtual Visit [facility] [address] 200 [place] [address] [place] [address] [place] [address] 200 [place] [address] 02/08/2025 1:30 PM CDT Office Visit [facility] [address] 200 [place] [address] Miriam Melton APRN GUITAR REPAIR TECHNICIAN [address] [place] [address] 05/09/2025 9:30 AM CDT Virtual Visit [facility] [address] 200 [place] [address] [place] [address] [place] [address] 08/09/2025 1:30 PM INTEGRATED CIRCUIT FABRICATOR Office Visit [facility] [address] [address] Miriam Melton APRN GUITAR REPAIR TECHNICIAN [address] [place] [address] Scheduled Procedures Name Priority Associated Diagnoses Date/Ti me CREATION, GASTRIC BYPASS, SRIDHAR-EN-Y, LAPAROSCOPIC Morbid obesity (H) Duodenal stricture 08/07/2024 10:50 AM INTEGRATED CIRCUIT FABRICATOR documented as of this encounter Visit Diagnoses Not on filedocumented in this encounter Additional Health Concerns Assessment Noted Time PHQ-9 Depression Total Score: 2 05/07/20 21 11:37 AM CDT documented as of this encounter Care Teams Loan Supervisor Relationship Specialty Start Date End Date Herson Rhodes MD PCP - General 06/02/11 [facility] [address] [place] [address] Assigned PCP 12/14/23 Ed Saenz MD [address] [place] [address] Assigned Surgical Provider 05/15/24 documented as of this encounter
--- OUTSIDE RECORDS SUMMARY | 2024-07-31 09:38 | XMS_ITS | Encounter Summary ---
Author Organization [place] Address [address] [place] [address]. [place] [address] Care Team Providers Care Deliverer Pharmacy Name Role Phone Herson Rhodes MD Primary Care Provider [facility] Unavailabl e Ed Saenz MD Unavailable [phone] Encounter Details Date Type Department Care Team (Late st Contact Info) Description 05/18/2024 11:15 AM CDT Lab [facility] [address] [facility] [address] [place] [address] Healthcare maintenance; Morbid obesity (H); Pre-diabetes [...] PM CDT Legal Sex Female 5:06 AM SEWING MACHINE ADJUSTER Gender Identity Female 04/04/2021 10:28 PM CDT Sexual Orientation Straight 04/04/2021 10 :28 PM CDT documented as of this encounter Plan of Treatment Upcoming Encounters Date Type Department Care Team (Late st Contact Info) Description 08/07/2024 10:50 AM SEWING MACHINE ADJUSTER Hospital Encounter [address] [address] Aris Thurman MD [address] [place] [address] 08/07/2024 10:50 AM SEWING MACHINE ADJUSTER - 08/07/2024 1:40 PM SEWING MACHINE ADJUSTER Surgery [address] [address] Aris Thurman MD [address] [place] [address] CREATION, GASTRIC BYPASS, SRIDHAR-EN-Y, LAPAROSCOPIC 08/15/2024 1:00 PM SEWING MACHINE ADJUSTER Virtual Visit [facility] Care [address] [address] 08/30/2024 12:30 PM SEWING MACHINE ADJUSTER Virtual Visit [facility] [address] [address] Aris Thurman MD [address] [place] [address] 09/08/2024 11:00 AM SEWING MACHINE ADJUSTER Virtual Visit [facility] [address] [address] Betty Leonardo, RD [address] [place] [address] 11/06/2024 9:30 AM CDT Virtual Visit [facility] [address] [address] Dung Alva, PhD RONNA AND ASSOC [facility] [address] 200 [place] [address] 11/07/2024 9:30 AM CDT Virtual Visit [facility] [address] 200 [place] [address] Hien Flood, RD 2945 [facility] 200 [place] [address] 02/08/2025 1:30 PM CDT Office Visit [facility] Surgery [facility] and [facility] Care [address] 200 [place] [address] Miriam Melton, DEE MOVIE MACHINE OPERATOR [address] [place] [address] 05/09/2025 9:30 AM CDT Virtual Visit [facility] Surgery [facility] and [facility] Care [address] 200 [place] [address] Hien Flood, RD 2945 [facility] 200 [place] [address] 08/09/2025 1:30 PM SEWING MACHINE ADJUSTER Office Visit [facility] Surgery [facility] and [facility] Care [address] [place] [address] Miriam Melton, DEE MOVIE MACHINE OPERATOR [address] [place] [address] Scheduled Procedures Name Priority Associated Diagnoses Date/Ti me CREATION, GASTRIC BYPASS, SRIDHAR-EN-Y, LAPAROSCOPIC Morbid obesity (H) Duodenal stricture 08/07/2024 10:50 AM SEWING MACHINE ADJUSTER documented as of this encounter Procedures Procedure Name Priority Date/Time Associated Diagnosis Comments ZINC Routine 05/18/2024 11:25 AM CDT Healthcare [...] Pre-diabetes documented in this encounter Results * Zinc (05/18/2024 11:25 AM CDT) Zinc, Serum/Plasma 74.3 60.0 - 120.0 ug/dL 05/19/2024 10:35 PM CDT [employer] [facility] Comment: INTERPRETIVE INFORMATION: Zinc, Serum or Plasma [...] developed and its performance characteristics determined by [facility]. It has not been cleared or approved by the [place] Food and Drug Administration. This test was performed in a CLIA certified laboratory and is intended for clinical purposes. Performed By: [facility] [address] [place] [address] Chief Building Inspector: Ceasar Romero MD, PhD CLIA Number: [id number] Blood BLOOD SPECIMEN / Unknown Venipuncture / Unknown 05/18/2024 11:25 AM CDT 05/18/2024 11:25 AM CDT Miriam Melton APRN [facility] LAB - BLOOD ORDERABL ES Final Result Performing Organization Address [facility] Co de Phone Number [facility] [employer] [address] [place] [phone] [phone] * Vitamin B12 (05/18/2024 11:25 AM CDT) Pathologist [facility] Vitamin B12 430 232 - 1,245 pg/mL 05/18/2024 4:24 PM CDT [facility] Blood BLOOD SPECIMEN / Unknown Venipuncture / Unknown 05/18/2024 11:25 AM CDT 05/18/2024 11:25 AM CDT Miriam Melton APRN [facility] - BLOOD ORDERABL ES Final Result [facility] [address] [facility], [address] [place] [address] * Vitamin B1 whole blood (05/18/2024 11:25 AM CDT) Vitamin B1 Whole Blood Level 117 70 - 180 nmol/L 05/22/2024 6:49 AM CDT [employer] Comment: INTERPRETIVE INFORMATION: Vitamin B1, Whole Blood This assay measures the concentration of thiamine diphosphate (TDP), the primary active form of vitamin B1. Approximately 90 percent of vitamin B1 present in whole blood is TDP. Thiamine and thiamine monophosphate, which comprise the remaining 10 percent, are not measured. This test was developed and its performance characteristics determined by [facility]. It has not been cleared or approved by the [place] Food and Drug Administration. This test was performed in a CLIA certified laboratory and is intended for clinical purposes. Performed By: [facility] [address] [place] [address] Chief Building Inspector: Ceasar Romero MD, PhD CLIA Number: [id number] Blood BLOOD SPECIMEN / Unknown Venipuncture / Unknown 05/18/2024 11:25 AM CDT 05/18/2024 11:25 AM CDT Miriam Melton APRN [facility] - BLOOD ORDERABL ES Final Result Performing Organization Address [facility]/ZIP Co de Phone Number [employer] [address] [place] [phone] [phone] * Vitamin A (05/18/2024 11:25 AM CDT) Vitamin A 0.81 0.30 - 1.20 mg/L 05/21/2024 11:25 AM CDT [email or web address] Retinol Palmitate <0.02 0.00 - 0.10 mg/L 05/21/2024 11:25 AM CDT [facility] Vitamin A Interp Normal 05/21/20 11:25 AM CDT [facility] Comment: This test was developed and its performance characteristics determined by [facility]. It has not been cleared or approved by the US Food and Drug Administration. This test was performed in a CLIA certified laboratory and is intended for clinical purposes. Performed By: [facility] [address] [place] [address] Chief Building Inspector: Ceasar Romero MD, PhD CLIA Number: [id number] Blood BLOOD SPECIMEN / Unknown Venipuncture / Unknown 05/18/2024 11:25 AM CDT 05/18/2024 11:25 AM CDT Miriam Melton APRN [facility] - BLOOD ORDERABL ES Final Result [facility] [address] [place] [phone] [phone] * TSH (05/18/2024 11:25 AM CDT) TSH 1.47 0.30 - 4.20 uIU/mL 05/18/2024 4:24 PM CDT [facility] Blood BLOOD SPECIMEN / Unknown Venipuncture / Unknown 05/18/2024 11:25 AM CDT 05/18/2024 11:25 AM CDT Miriam Melton APRN [facility] - BLOOD ORDERABL ES Final Result [facility] [address] [facility], [address] [address] * Parathyroid Hormone Intact (05/18/2024 11:25 [...] differs from PTH assays used in other [facility] laboratories. Miriam Melton APPLICATION ADMINISTRATOR MOVIE MACHINE OPERATOR LAB - BLOOD ORDERABL ES Final Result [facility] [address] [facility], [address] [place] [address], [facility] * (ABNORMAL) Lipid Profile (05/18/2024 11:25 AM CDT) Pathologist [facility] Cholesterol 213(H) <200 mg/dL 05/18/2024 4:24 PM [...] High: >= 220 mg/dL Miriam Melton APRN MOVIE MACHINE OPERATOR LAB - BLOOD ORDERABL ES Final Result LABORATORY [facility] [address] [facility], [address] [place], [place] [phone] * (ABNORMAL) Hemoglobin A1c (05/18/2024 11:25 AM CDT) Estimated Average Glucose 128(H) <117 mg/dL 05/18/2024 11:37 AM CDT [facility] Hemoglobin A1C 6.1(H) 0.0 - 5.6 % 05/18/2024 11:37 AM CDT [facility] Comment: Normal <5.7% Prediabetes 5.7-6.4% Diabetes 6.5% or higher Note: Adopted from ADA consensus guidelines. Blood BLOOD SPECIMEN / Unknown Venipuncture / Unknown 05/18/2024 11:25 AM CDT 05/18/2024 11:25 AM CDT Miriam Melton APRN, CNP LAB - BLOOD ORDERABL ES Final Result [facility] [address] * Folate (05/18/2024 11:25 AM CDT) Folic Acid 8.5 4.6 - 34.8 ng/mL 05/18/2024 3:31 PM CDT LABORATORY Blood BLOOD SPECIMEN / Unknown Venipuncture / Unknown 05/18/2024 11:25 AM CDT 05/18/2024 11:25 AM CDT Miriam Melton APRN MOVIE MACHINE OPERATOR LAB - BLOOD ORDERABL ES Final Result LABORATORY [facility] [address] [facility], [address] [place] [phone] * Ferritin (05/18/2024 11:25 AM CDT) Ferritin 13 6 - 175 ng/mL 05/18/2024 4:24 PM CDT [facility] Blood BLOOD SPECIMEN / Unknown Venipuncture / Unknown 05/18/2024 11:25 AM CDT 05/18/2024 11:25 AM CDT Miriam Melton APRN MOVIE MACHINE OPERATOR LAB - BLOOD ORDERABL ES Final Result [facility] [address] [facility], [address] [place] [phone] * (ABNORMAL) Comprehensive metabolic panel [...] 05/18/2024 11:25 AM CDT Miriam Melton APRN MOVIE MACHINE OPERATOR LAB - BLOOD ORDERABL ES Final Result [facility] [address] [facility], [address] [place] [phone] * (ABNORMAL) CBC with platelets [...] - 33.0 pg 05/18/2024 11:35 AM CDT [facility] MCHC 31.6 31.5 - 36.5 g/dL 05/18/2024 11:35 AM CDT [facility] RDW 15.5(H) 10.0 - 15.0 % 05/18/2024 11:35 AM CDT [facility] Platelet Count 411 150 - 450 10e3/uL 05/18/2024 11:35 AM CDT [facility] Blood BLOOD SPECIMEN / Unknown Venipuncture / Unknown 05/18/2024 11:25 AM CDT 05/18/2024 11:25 AM CDT Miriam Melton APRN MOVIE MACHINE OPERATOR LAB - BLOOD ORDERABL ES Final Result Performing Organization Address City/State/[facility] Co de Phone Number [facility] [address] * 25 Hydroxyvitamin D2 and D3 (05/18/2024 [...] intake, and treatment affect the concentration of 23-yuauftl-Hmiidyu D. Values may decrease during winter months [...] and its performance characteristics determined by the [facility], Special Chemistry Laboratory. It has not been cleared or approved by the FDA. The laboratory is regulated under CLIA as qualified to perform high-complexity testing. This test is used for clinical purposes. It should not be regarded as investigational or for research. Miriam Melton APRN MOVIE MACHINE OPERATOR LAB - BLOOD ORDERABL ES Final Result [facility] [address] [facility] [address], [address] [place] [address], [facility] documented in this encounter Visit Diagnoses Diagnosis Healthcare maintenance Routine general medical examination at a health care facility Morbid obesity (H) Morbid obesity Pre-diabetes Other abnormal glucose Morbid obesity (H) Morbid obesity Duodenal stricture Other obstruction of duodenum documented in this encounter Additional Health Concerns Assessment Noted Time PHQ-9 Depression Total Score: 2 05/07/20 21 11:37 AM CDT documented as of this encounter Care Teams Deliverer Pharmacy Relationship Specialty Start Date End Date Herson Rhodes MD PCP - General 06/02/11 [facility] [id number] [place] [address] Assigned PCP 12/14/23 Ed Saenz MD [address] [address] Assigned Surgical Provider 05/15/24 documented as of this encounter
--- OUTSIDE RECORDS SUMMARY | 2024-07-31 09:38 | XMS_ITS | Encounter Summary ---
Author Organization [facility] Address [address] [place] [address]. [place] [address] Care Team Providers Care Systems Designer Name Role Phone Herson Rhodes MD Primary Care Provider [facility] Unavailabl e Ed Saenz MD Unavailable [phone] Unavailable [phone] Encounter Details Date Type Department Care Team (Late st Contact Info) Description 06/12/2024 9:00 AM CDT Virtual Visit [facility] [address] [place] [phone] Dung Alva, PhD [employer] [address] [facility] [address] [place], [place] [id number] Morbid obesity (H) (Primary Dx) Social History [...] PM CDT Legal Sex Female 5:06 AM TABLE SETTER Gender Identity Female 04/04/2021 10:28 PM CDT Sexual Orientation Straight 04/04/2021 10 :28 PM CDT documented as of this encounter Progress Notes * Dung Alva, PhD - 06/12/2024 9:00 AM CDT Virtual Visit Details Type of service: Video Visit Originating Location (pt. Location): Home Distant Location (provider location): Off-site Platform used for Video Visit: [facility] Start Time: 8:48 AM End Time: 9:33 AM Sofia has started to make some changes in eating and lifestyle, but still needs to be more mindful about her eating. She will follow up with a list of activities and mindful eating strategies. I also helped to clarify some of the information that the dietitians have been discussing with her. F31.9; E66.01 documented in this encounter Plan of Treatment Upcoming Encounters Date Type Department Care Team (Late st Contact Info) Description 08/07/2024 10:50 AM TABLE SETTER Hospital Encounter [address] [phone] Aris Thurman MD [address] [place] [id number] 08/07/2024 10:50 AM TABLE SETTER - 08/07/2024 1:40 PM TABLE SETTER Surgery [address] [phone] Aris Thurman MD [address] [place] [id number] CREATION, GASTRIC BYPASS, SRIDHAR-EN-Y, LAPAROSCOPIC 08/15/2024 1:00 PM TABLE SETTER Virtual Visit [facility] [place] [address] [place] [phone] 08/30/2024 12:30 PM TABLE SETTER Virtual Visit [facility] [address] [place] [phone] Aris Thurman MD [address] [facility] 200 [place] [address] 09/08/2024 11:00 AM TABLE SETTER Virtual Visit [facility] [address] [place] [phone] Betty Leonardo, ZEINAB [address] [address] 11/06/2024 9:30 AM CDT Virtual Visit [facility] [address] [phone] Dung Alva, PhD [employer] [facility] [address] [address] 11/07/2024 9:30 AM CDT Virtual Visit [facility] [address] [phone] Hien Flood, ZEINAB [address] [address] 02/08/2025 1:30 PM CDT Office Visit [facility] [address] [place] [phone] Miriam Melton, DEE PHLEBOTOMIST PRN [address] [place] [address] 05/09/2025 9:30 AM CDT Virtual Visit [facility] [address] [place] [phone] [place] [address] [address] [place] [address] 08/09/2025 1:30 PM TABLE SETTER Office Visit [facility] [address] [place] [phone] Miriam Melton, DEE PHLEBOTOMIST PRN [address] [place] [phone] Scheduled Procedures Name Priority Associated Diagnoses Date/Ti me CREATION, GASTRIC BYPASS, SRIDHAR-EN-Y, LAPAROSCOPIC Morbid obesity (H) Duodenal stricture 08/07/2024 10:50 AM TABLE SETTER documented as of this encounter Visit Diagnoses Diagnosis Morbid obesity (H)- Primary Morbid obesity Morbid obesity (H) Morbid obesity Duodenal stricture Other obstruction of duodenum documented in this encounter Additional Health Concerns Assessment Noted Time PHQ-9 Depression Total Score: 2 05/07/20 21 11:37 AM CDT documented as of this encounter Care Teams Systems Designer Relationship Specialty Start Date End Date Herson Rhodes MD PCP - General 06/02/11 Clinic - [facility] [address] [place] [address] Assigned PCP 12/14/23 Ed Saenz MD [address] [place] [id number] Assigned Surgical Provider 05/15/24 06/13/[address] [address] Registered Dietitian Dietitian, Registered 06/09/24 documented as of this encounter
--- OUTSIDE RECORDS SUMMARY | 2024-07-31 09:38 | XMS_ITS | Encounter Summary ---
Author Organization [facility] Address [address] [place] [address]. [place] [address] Care Team Providers Care Plate Stacker Name Role Phone Herson Rhodes MD Primary Care Provider [phone] [facility] Ed Saenz MD Unavailable [phone] Reason for Visit * Reason Comments Consult 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 Gender Identity Female 04/04/2021 10:28 PM CDT [...] 9:51 AM CDT documented in this encounter Patient Instructions * Patient Instructions* Litzy Hall RN - 05/18/2024 10:00 AM CDT Bariatric Task List Fax: Please fax all paperwork to: [phone] - Status: Is patient a candidate for bariatric surgery?: patient is a candidate for bariatric surgery- Cleared to schedule surgeon consult?: not cleared to schedule surgeon consult - Status: surgery evaluation in process - Surgeon: Dany - Insurance: Insurance: [facility] - Contact insurance to discuss coverage: Needed - Other: Please call Radha Brown at [phone] - Patient Info: Initial Weight: 298 lb, BMI 49.59 - Date of Initial Weight/Height: 05/18/2024 - Required Weight Loss: No weight gain - Surgery Type: gastric bypass - Custom Car Builder Visits: Structured weight loss required by insurance?: no structured weight loss required- Clearance from crisis specialist to see surgeon?: Needed - Custom Car Builder Notes: - Psychological Evaluation: Psych eval: Needed - Other: - Lab Work: Complete Blood Count: Completed - Comprehensive Metabolic Panel: Completed - Vitamin D: Completed - PTH: Completed - Hgb A1c: Completed - 05/18/2024 6.1 Lipids: Completed - TSH ([facility], [facility], [place]): Completed - Ferritin: Completed - Folate: Completed - Thiamine: Completed - Vitamin A: Completed - Vitamin B12: Completed - Zinc: Completed - Other: - Consults/ Clearance Sleep Medicine: Completed - Other: - PCP: Establish care with PCP: Completed - Health Maintenance: Mammogram (> 40 yrs or family hx): Needed - 05/07/2021 Pap Smear (women): Needed - 05/07/2021 Other: - Stopping Smoking/ Alcohol Use/Cannabis Use: Quit tobacco use (3 months smoke free)?: Needed - Quit date: 01/22/2024 - Patient Education: Information Session: Completed - Given Making your decision handout?: Yes - Given A Roadmap to you Weight Loss Surgery handout?: Yes - Given [facility] Rack Worker information?: No - Attended support group?: Needed - Additional Surgery Requirements: Review Coag plan: Completed - standard Gallstone prevention plan (Actigall for 6 months postop): Needed - Other: - Final Tasks: Before surgery online preop class: Needed - After surgery online class: Needed - History and Physical: Primary Care Provider - Needed - Final labs per clinic: Needed - Chest xray per clinic: Needed - Electrocardiogram (ECG) per clinic: Needed - Schedule postop appointments: Needed - Other: - - Notes: Final tasks will be ordered and scheduled once surgery is scheduled - documented in this encounter Progress Notes * Miriam Melton APRN LOGGING ENGINEER - 05/18/2024 10:00 AM CDT New Bariatric Surgery Consultation Note May 18, 2024 RE: Sofia Iyer MR#: [id number] : 1980 Referring provider: 05/13/2024 10:11 AM -- Who referred you Doc Goo Chief Complaint/Reason for visit: evaluation for possible weight loss surgery Dear Herson Rhodes MD (General), I had the pleasure of seeing your patient, Sofia Iyer, to evaluate her obesity and consider her for possible weight loss surgery. As you know, Sofia Iyer is 43 year old. She hasa height of 5' 5, a weight of 298 lbs 0 oz, and calculated Body mass index is 49.59 kg/m??. HISTORY OF PRESENT ILLNESS: 05/13/2024 10:11 AM Weight Loss History Reviewed with Patient How long have you been overweight? Since late 20's to early 40's What is the most that you have ever weighed 312 What is the most weight you have lost? 85 I have tried the following methods to lose weight Watching portions or calories Exercise OTC Medications Prescription Medications I have tried the following weight loss medications? (Check all that apply) Topamax/Topiramate Metformin Weight gain of over 100 pounds in the past 1+ year. She attributes this to changes in her bipolar medications. She was started on tirzepatide 3 weeks ago. A 9 pound weight reduction is noted since she was seen in clinic last week. CO-MORBIDITIES OF OBESITY INCLUDE: 05/13/2024 10:11 AM -- I have the following health issues associated with obesity Pre-Diabetes High Blood Pressure GERD (Reflux) PAST MEDICAL HISTORY: Past Medical History: Diagnosis Date Allergic rhinitis [...] stimulator Spondylarthrosis Walking troubles not current 05/29/11 Pyloric stenosis requiring multiple balloon dilations that GI feels will not heal. She met with to discuss surgical options and he recommended a RNY gastric bypass that would address both her issues with pyloric stenosis and morbid obesity. 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 SURGERY exc endometrial cysts HYSTERECTOMY, PAP STILL [...] cord stimulator with nonchargeable ; Surgeon:AJ PERKINS; Location:U OR INSERT STIMULATOR DORSAL COLUMN 06/02/2011 Procedure:INSERT STIMULATOR DORSAL COLUMN; Medtronic Spinal Cord Stimulator Revision; Surgeon:AJ PERKINS; Location: OR LAPAROSCOPIC ASSISTED HYSTERECTOMY VAGINAL N/A 12/19/2015 [...] N/A 04/11/2019 Procedure: LAPAROSCOPY, USING CO2 LASER ([employer] TECH); Surgeon: Alan Shah MD; Location: OR radio frequency ablation nerve spine radiofrequency ablation of nerve neck 05/25/11 REPLACE BATTERY STIMULATOR DORSAL COLUMN 02/14/2014 Procedure: REPLACE BATTERY STIMULATOR DORSAL COLUMN; Surgeon: Aj Perkins MD; Location: US OR FAMILY HISTORY: Family History Problem Relation Age of Onset Asthma Father Arthritis Father Chronic Obstructive Pulmonary Disease Father Depression Father Thyroid Disease Sister Diabetes Other Moms side SOCIAL HISTORY: 05/13/2024 10:11 AM Social History Questions Reviewed With Patient Which best describes your employment status (select all that apply) I am disabled Which best describes your marital status Who do you have in your support network that can be available to help you for the first 2 weeks after surgery? , sister, therapist, mom, friends Who can you count on for support throughout your weight loss surgery journey? , sister, therapist, mom, friends HABITS: 05/13/2024 10:11 AM -- How often do you drink alcohol? Never Do you currently use any of the following Nicotine products? No Have you ever used any of the following nicotine products? E-cigarettes If you previously used any of these products, what year did you quit? 2023 Have you or are you currently using street drugs or prescription strength medication for which you do not have a prescription for? No Do you have a history of chemical dependency (alcohol or drug abuse)? No PSYCHOLOGICAL HISTORY: 05/13/2024 10:11 AM Psychological History Reviewed With Patient Have you ever attempted suicide? Never. Have you had thoughts of suicide in the past year? No Have you ever been hospitalized for mental illness or a suicide attempt? In the last 1 to 5 years. Do you have a history of chronic pain? Yes Have you ever been diagnosed with fibromyalgia? No Are you currently being treated for any of the following? (select all that apply) Bipolar Post traumatic stress disorder Are you currently seeing a therapist or counselor? Yes Are you currently seeing a psychiatrist? Yes ROS: 05/13/2024 10:11 AM -- Skin Skin fold rashes (groin or other folds) Leg swelling HEENT Headaches Dizziness/lightheadedness Teeth, dentures, or bridges needing repairs Musculoskeletal Joint Pain Back pain Limited mobility Swelling of legs Cardiovascular Shortness of breath with activity Pulmonary Shortness of breath with activity Snoring Experience morning headaches Gastrointestinal Heartburn Reflux Ulcers Difficulty swallowing (food gets stuck) Genitourinary None of the above Hematological None of the above Neurological Migraine headaches Female only None of the above EATING BEHAVIORS: 05/13/2024 10:11 AM -- Have you or anyone else thought that you had an eating disorder? No Do you currently binge eat (eat a large amount of food in a short time)? No Are you an emotional eater? No Do you get up to eat after falling asleep? No Can you afford 3 meals a day? Yes Can you afford 50-60 dollars a month for vitamins? Yes EXERCISE: 05/13/2024 10:11 AM -- How often do you exercise? 1 to 2 times per week What is the duration of your exercise (in minutes)? 45 Minutes What types of exercise do you do? walking gym membership What keeps you from being more active? I am as active as I can possbily be Pain My ability to walk or move around is limited MEDICATIONS: Current Outpatient Medications Medication Sig Dispense Refill baclofen (LIORESAL) 20 MG tablet Take 40 mg by mouth daily (Takes 2 x 20mg = 40mg) escitalopram (LEXAPRO) 10 MG tablet Take 10 mg by mouth daily estradiol (ESTRACE) 0.5 MG tablet Take 1 tablet (0.5 mg) by mouth daily 90 tablet 3 fluticasone (FLONASE) 50 MCG/ACT nasal spray Erwin 2 sprays into both nostrils daily Gabapentin 10 % CREA Externally apply 1 g topically 4 times daily 30 mL 0 metoprolol succinate ER (TOPROL XL) 100 MG 24 hr tablet Take 100 mg by mouth daily olopatadine (PATANOL) 0.1 % ophthalmic solution Place 1 drop into both eyes 2 times daily topiramate (TOPAMAX) 100 MG tablet Take 100 mg by mouth 2 times daily traMADol HCl 100 MG TABS 100 mg 2 times daily ALLERGIES: Allergies Allergen Reactions Compazine Restless legs Levofloxacin Other reaction(s): GI Upset Phenergan Dm [Promethazine-Dm] Restless legs LABS/IMAGING/MEDICAL RECORDS REVIEW: ordered PHYSICAL EXAM: Ht 1.651 m (5' 5) Wt 135.2 kg (298 lb) LMP 06/11/2015 BMI 49.59 kg/m?? General Appearance No acute distress. Obesity Alert and Oriented Ambulatory without a device HEENT PERRLA, EOMI; Melampati Score II Neck Wilson; No carotid bruits or JVD Cardiovascular Regular rate and rhythm No murmur or gallop Pulmonary LS CTA bilaterally Abdomen Soft, NT/ND, No rebound, no guarding No rashes Extremities: Pitting edema: Not present Distal pulses palpable Neurologic Cranial nerves grossly intact; no tremors present Psychiatric Thought content organized Mood appears stable Endocrine Hernandez Facies not present Dorsal Thoracic Prominence not present Skin tags not present Acanthosis nigricans present Purple Striae not present Dermatologic Intertrigo not present Hirsutism present In summary, Sofia Iyer has pre-diabetes, degenerative lumbar disc disease, GERD, hyperlipidemia, hypertension, PCOS, anxiety, bipolar disorder, and pyloric stenosis in the setting of morbid obesity. Body mass index is 49.59 kg/m??. This satisfies NIH criteria for bariatric surgery. Once Sofia Iyer has been cleared by our bariatric psychologist and our bariatric dietitian, completed initial lab work, attended one support group, and satisfied insurance mandated visits if applicable, she will be scheduled with Dr. Saenz for Bariatric Surgery Consultation. she is interested in the the RNY gastric bypass. Sofia Iyer understands that routine health care maintenance will need to be up to date prior to surgery. she verbalizes understanding of the process to surgery and expectations for the postoperative period including the need for lifelong lifestyle changes, vitamin supplementation, and laboratory monitoring. Weight will need to be 298 prior to submitting for insurance approval. Standard DVT protocol Ursodiol for 6 months after surgery to prevent gallstone formation Sleep Study already done Smoking Cessation and Urine for tobacco metabolites pre-operatively (quit date 01/2024) Sofia Iyer was reminded to prevent for 18-24 months post operatively. Miriam Melton APRN LOGGING ENGINEER [phone] [facility] Bariatric Surgery [facility] Total time spent on the date of this encounter doing: chart review, review of test results, patientvisit, physical exam, education, counseling, developing plan of care, and documenting = 75 minutes. documented in this encounter Plan of Treatment Upcoming Encounters Date Type Department Care Team (Late st Contact Info) Description 08/07/2024 10:50 AM INSTALLER METAL FLOORING Hospital Encounter [address] [phone] Aris Thurman MD [address] [place] [address] 08/07/2024 10:50 AM INSTALLER METAL FLOORING - 08/07/2024 1:40 PM INSTALLER METAL FLOORING Surgery [address] [phone] Aris Thurman MD [address] [place] [address] [id number] CREATION, GASTRIC BYPASS, SRIDHAR-EN-Y, LAPAROSCOPIC 08/15/2024 1:00 PM INSTALLER METAL FLOORING Virtual Visit [facility] [address] [phone] 08/30/2024 12:30 PM INSTALLER METAL FLOORING Virtual Visit [facility] [address] [place] [address] Aris Thurman MD [address] [facility] [address] [place] [address] 09/08/2024 11:00 AM INSTALLER METAL FLOORING Virtual Visit [facility] [address] [place] [phone] Betty Leonardo, ZEINAB [address] [facility] [address] [place] [address] 11/06/2024 9:30 AM CDT Virtual Visit [facility] [address] [phone] Dung Alva, PhD [employer] [facility] [address] [address] 11/07/2024 9:30 AM CDT Virtual Visit [facility] [address] [place] [phone] Hien Flood, ZEINAB [address] [address] 02/08/2025 1:30 PM CDT Office Visit [facility] [address] [place] [address] Miriam Melton, DEE LOGGING ENGINEER [address] [facility] [address] [place] [address] 05/09/2025 9:30 AM CDT Virtual Visit [facility] Bee [address] [facility] [address] [place] [phone] [facility] [address] [place], [place] [phone] 08/09/2025 1:30 PM INSTALLER METAL FLOORING Office Visit [facility] Bee [address] [facility] [address] [place] [address] Miriam Melton APRN CNP [address] [facility] [address] [place] [address] Scheduled Procedures Name Priority Associated Diagnoses Date/Ti me CREATION, GASTRIC BYPASS, SRIDHAR-EN-Y, LAPAROSCOPIC Morbid obesity (H) Duodenal stricture 08/07/2024 10:50 AM INSTALLER METAL FLOORING documented as of this encounter Results * Zinc (05/18/2024 11:25 AM CDT) Zinc, Serum/Plasma 74.3 60.0 - 120.0 ug/dL 05/19/2024 10:35 PM CDT [employer] Comment: INTERPRETIVE INFORMATION: Zinc, Serum or Plasma [...] developed and its performance characteristics determined by [facility]. It has not been cleared or approved by the US Food and Drug Administration. This test was performed in a CLIA certified laboratory and is intended for clinical purposes. Performed By: [facility] [address] [place] [id number] Manager Brand: Ceasar Romero MD, PhD CLIA Number: [id number] Blood BLOOD SPECIMEN / Unknown Venipuncture / Unknown 05/18/2024 11:25 AM CDT 05/18/2024 11:25 AM CDT Miriam Melton APRN [facility] - BLOOD ORDERABL ES Final Result Performing Organization Address City/[facility]/ZIP Co de Phone Number [address] [phone] [phone] * Vitamin B12 (05/18/2024 11:25 AM CDT) Pathologist [facility] Vitamin B12 430 232 - 1,245 pg/mL 05/18/2024 4:24 PM CDT [facility] Blood BLOOD SPECIMEN / Unknown Venipuncture / Unknown 05/18/2024 11:25 AM CDT 05/18/2024 11:25 AM CDT Miriam Melton APRN [facility] - BLOOD ORDERABL ES Final Result LABORATORY [facility] [address] [facility], [address] [phone] * Vitamin B1 whole blood (05/18/2024 11:25 AM CDT) Pathologist [facility] Vitamin B1 Whole Blood Level 117 70 - 180 nmol/L 05/22/2024 6:49 AM CDT [facility] [employer] Comment: INTERPRETIVE INFORMATION: Vitamin B1, Whole Blood This assay measures the concentration of thiamine diphosphate (TDP), the primary active form of vitamin B1. Approximately 90 percent of vitamin B1 present in whole blood is TDP. Thiamine and thiamine monophosphate, which comprise the remaining 10 percent, are not measured. This test was developed and its performance characteristics determined by [facility]. It has not been cleared or approved by the US Food and Drug Administration. This test was performed in a CLIA certified laboratory and is intended for clinical purposes. Performed By: [facility] [address] [place] [id number] Manager Brand: Ceasar Romero MD, PhD CLIA Number: [id number] Blood BLOOD SPECIMEN / Unknown Venipuncture / Unknown 05/18/2024 11:25 AM CDT 05/18/2024 11:25 AM CDT Miriam Isael Melton APRN [facility] - BLOOD ORDERABL ES Final Result Performing Organization Address City/[facility]/ZIP Co de Phone Number [facility] [address] [place] [phone] [phone] * Vitamin A (05/18/2024 11:25 AM CDT) Vitamin A 0.81 0.30 - 1.20 mg/L 05/21/2024 11:25 AM CDT [facility] [employer] [facility] Retinol Palmitate <0.02 0.00 - 0.10 mg/L 05/21/2024 11:25 AM CDT [facility] Vitamin A Interp Normal 05/21/20 11:25 AM CDT [facility] [employer] Comment: This test was developed and its performance characteristics determined by [facility]. It has not been cleared or approved by the US Food and Drug Administration. This test was performed in a CLIA certified laboratory and is intended for clinical purposes. Performed By: [facility] [address] [place] [address] Manager Brand: Ceasar Romero MD, PhD CLIA Number: [id number] Blood BLOOD SPECIMEN / Unknown Venipuncture / Unknown 05/18/2024 11:25 AM CDT 05/18/2024 11:25 AM CDT Miriam Melton APRN, CNP LAB - BLOOD ORDERABL ES Final Result Performing Organization Address City/[facility]/ZIP Co de Phone Number [facility] [address] [place] [phone] [phone] * TSH (05/18/2024 11:25 AM CDT) TSH 1.47 0.30 - 4.20 uIU/mL 05/18/2024 4:24 PM CDT [facility] Blood BLOOD SPECIMEN / Unknown Venipuncture / Unknown 05/18/2024 11:25 AM CDT 05/18/2024 11:25 AM CDT Miriam Melton APRN, CNP LAB - BLOOD ORDERABL ES Final Result Performing Organization Address City/[facility]/ZIP Co de Phone Number U LABORATORY [facility] [address] [facility], [address] * Parathyroid Hormone Intact (05/18/2024 11:25 [...] differs from PTH assays used in other [facility] laboratories. Miriam Melton APRN, CNP LAB - BLOOD ORDERABL ES Final Result Performing Organization Address City/[facility] Co de Phone Number [facility] [address] [place] [address], [address] * (ABNORMAL) Lipid Profile (05/18/2024 11:25 [...] High: >= 220 mg/dL Miriam Melton APRN LOGGING ENGINEER LAB - BLOOD ORDERABL ES Final Result [facility] [address] [facility], [address] [phone] * (ABNORMAL) Hemoglobin A1c (05/18/2024 11:25 AM CDT) Estimated Average Glucose 128(H) <117 mg/dL 05/18/2024 11:37 AM CDT [facility] Hemoglobin A1C 6.1(H) 0.0 - 5.6 % 05/18/2024 11:37 AM CDT [facility] Comment: Normal <5.7% Prediabetes 5.7-6.4% Diabetes 6.5% or higher Note: Adopted from ADA consensus guidelines. Blood BLOOD SPECIMEN / Unknown Venipuncture / Unknown 05/18/2024 11:25 AM CDT 05/18/2024 11:25 AM CDT Miriam Melton APRN, CNP LAB - BLOOD ORDERABL ES Final Result [facility] [address] * Folate (05/18/2024 11:25 AM CDT) Folic Acid 8.5 4.6 - 34.8 ng/mL 05/18/2024 3:31 PM CDT [facility] Blood BLOOD SPECIMEN / Unknown Venipuncture / Unknown 05/18/2024 11:25 AM CDT 05/18/2024 11:25 AM CDT Miriam Melton APRN, CNP LAB - BLOOD ORDERABL ES Final Result [facility] LABORATORY [facility] [address] [facility], [address] * Ferritin (05/18/2024 11:25 AM CDT) Pathologist [facility] Ferritin 13 6 - 175 ng/mL 05/18/2024 4:24 PM CDT [facility] Blood BLOOD SPECIMEN / Unknown Venipuncture / Unknown 05/18/2024 11:25 AM CDT 05/18/2024 11:25 AM CDT Miriam Melton APRN [facility] - BLOOD ORDERABL ES Final Result [facility] LABORATORY [facility] [address] [facility], [address] * (ABNORMAL) Comprehensive metabolic panel (05/18/2024 [...] BLOOD ORDERABL ES Final Result [facility] [address] [facility], [address] [place] [phone] * (ABNORMAL) CBC with platelets (05/18/2024 11:25 AM CDT) [facility] WBC Count 7.9 4.0 - 11.0 10e3/uL [...] 11:25 AM CDT 05/18/2024 11:25 AM CDT us Miriam Melton APRN, CNP LAB - BLOOD ORDERABL ES Final Result [facility] [address] [address], [place] * 25 Hydroxyvitamin D2 and D3 (05/18/2024 [...] intake, and treatment affect the concentration of 26-mggqnhm-Ardwisk D. Values may decrease during winter months [...] and its performance characteristics determined by the [facility], Special Chemistry Laboratory. It has not been cleared or approved by the FDA. The laboratory is regulated under CLIA as qualified to perform high-complexity testing. This test is used for clinical purposes. It should not be regarded as investigational or for research. iMriam Melton APRN LOGGING ENGINEER LAB - BLOOD ORDERABL ES Final Result [facility] [address] [facility], [address] [place] [address] documented in this encounter Visit Diagnoses [...] documented as of this encounter Care Teams Plate Stacker Relationship Specialty Start Date End Date Herson Rhodes MD PCP - General 06/02/11 [facility] [address] [place] [address] Assigned PCP 12/14/23 Ed Saenz MD [address] [place] [address] Assigned Surgical Provider 05/15/24 documented as of this encounter
--- OUTSIDE RECORDS SUMMARY | 2024-07-31 09:38 | XMS_ITS | Encounter Summary ---
Author Organization [facility] Address [address] [place] [address] Care Team Providers Care Sales Performance Manager Name Role Phone Herson Rhodes MD Primary Care Provider [phone] [facility] Reason for Visit * Reason Comments Stenosis * Consultation (Routine) - Pending Review Specialty Diagnoses / Procedures Referred By Abdirizak trimble Referred To Contact Surgery Diagnoses Duodenal stenosis Kashif Su MD [place] [facility] [address] [facility] [address] [place] [address] Phone: tel: fax: Referral ID Status Reason Start Date Expiration Date V isits Requested Visits Authorized [id number] Pending Review 05/02/2024 05/02/2025 1 1 Encounter Details Date Type Department Care Team (Late st Contact Info) Description 05/09/2024 1:45 PM CDT Office Visit [facility] [place] [address] [place] [address] [address] [place] [address] Kashif Su MD [place] [facility] [address] [place], [place] [id number] Ed Saenz MD [address] [place] [address] [address] [place] [address] Class 3 severe obesity due to excess [...] PM CDT Legal Sex Female 5:06 AM BUTCHER OR SMALLGOODS MAKER Gender Identity Female 04/04/2021 10:28 PM CDT [...] Iyer, Thank you for your interest in [facility]'s Bariatric Surgery Program. Before your first consultation, you will need to watch six short videos that take about 30 minutes to complete. You can find them at the bottom of this page: [email or web address]. Be sure to watch all six ! Thank you, and have a great day, Comprehensive Weight Management Program Scheduling Team Contact us Wednesday thru Wednesday, from 7:00 am until 5:00 pm by calling [phone]. documented in this encounter Progress Notes * [...] last upper endoscopy the impression from her ancillary specialist was that this is not going to [...] GASTRIC BIOPSIES; Surgeon: Kashif Su MD; Location: [facility] OR KITCHEN WORK SUPERVISOR SURGERY exc endometrial cysts HYSTERECTOMY, PAP STILL INDICATED until 2025 HYSTEROSCOPY DIAGNOSTIC 01/08/2014 Procedure: HYSTEROSCOPY DIAGNOSTIC; Surgeon: Alan Shah MD; Location: [place] HYSTEROSCOPY DIAGNOSTIC N/A 02/12/2015 Procedure: HYSTEROSCOPY DIAGNOSTIC; Surgeon: Alan Shah MD; Location: [place] INSERT STIMULATOR DORSAL COLUMN INSERT STIMULATOR DORSAL COLUMN 03/16/2011 Procedure:INSERT STIMULATOR DORSAL COLUMN; Procedure: Exchange of charageable battery of Dorsal Spinal cord stimulator with nonchargeable ; Surgeon:AJ MITCHELL; Location:[facility] OR INSERT STIMULATOR DORSAL COLUMN 06/02/2011 Procedure:INSERT STIMULATOR DORSAL COLUMN; Medtronic Spinal Cord Stimulator Revision; Surgeon:AJ MITCHELL; Location:[facility] OR LAPAROSCOPIC ASSISTED HYSTERECTOMY VAGINAL N/A 12/19/2015 Procedure: LAPAROSCOPIC ASSISTED HYSTERECTOMY VAGINAL; Surgeon: Alan Shah MD; [facility] LAPAROSCOPIC OOPHORECTOMY Left 04/11/2019 Procedure: Laparoscopic oophorectomy; [...] N/A 04/11/2019 Procedure: LAPAROSCOPY, USING CO2 LASER (TRANSThe Fabric TECH); Surgeon: Alan Shah MD; Location: OR radio frequency ablation nerve spine radiofrequency ablation of nerve neck 05/25/11 REPLACE BATTERY STIMULATOR DORSAL COLUMN 02/14/2014 Procedure: REPLACE BATTERY STIMULATOR DORSAL COLUMN; Surgeon: Aj Mitchell MD; Location: [place] OR CURRENT MEDS: Prior [...] MD fluticasone (FLONASE) 50 MCG/ACT nasal spray [place] 2 sprays into both nostrils daily Reported, [...] Patient Social Connections: Unknown (10/29/2021) Received from [employer] [place], [employer] [place] Social Connections Frequency of Communication with Friends [...] to treat the duodenalstricture alone, or a Sridhar-en-Y gastric bypass which would have the added benefit of treating her underlying morbid obesity. I think this would be a good option for her, and we will start her down that pathway through our comprehensive weight management program. Ed Saenz MD ,MD [facility] Department of Surgery documented in this encounter Plan of Treatment Upcoming Encounters Date Type Department Care Team (Late st Contact Info) Description 08/07/2024 10:50 AM BUTCHER OR SMALLGOODS MAKER Hospital Encounter [address] [address] Aris Thurman MD [address] [place] [address] 08/07/2024 10:50 AM BUTCHER OR SMALLGOODS MAKER - 08/07/2024 1:40 PM BUTCHER OR SMALLGOODS MAKER Surgery [address] [address] Aris Thurman MD [address] [place] [address] CREATION, GASTRIC BYPASS, SRIDHAR-EN-Y, LAPAROSCOPIC 08/15/2024 1:00 PM BUTCHER OR SMALLGOODS MAKER Virtual Visit [facility] [address] [address] 08/30/2024 12:30 PM BUTCHER OR SMALLGOODS MAKER Virtual Visit M [facility] [address] 200 [place] [address] Aris Thurman MD [address] [facility] 200 [place] [address] 09/08/2024 11:00 AM BUTCHER OR SMALLGOODS MAKER Virtual Visit M [facility] [address] 200 [place] [address] Betty Leonardo, ZEINAB [address] [facility] 200 [place] [address] 11/06/2024 9:30 AM CDT Virtual Visit [facility] [address] 200 [place] [address] Dung Alva, PhD [employer] [facility] [address] [facility] 200 [place] [address] 11/07/2024 9:30 AM CDT Virtual Visit [facility] [address] 200 [place] [address] Hien Flood, ZEINAB [address] [facility] 200 [place] [address] 02/08/2025 1:30 PM CDT Office Visit [facility] [address] 200 [place] [address] Miriam Melton, DEE AUTO AIR CONDITIONING MECHANIC [address] [facility] 200 [place] [address] 05/09/2025 9:30 AM CDT Virtual Visit [facility] [place] [address] [place] [address] 200 [place] [phone] Hien Flood, RD [address] [facility] 200 [place], [place] [id number] 08/09/2025 1:30 PM BUTCHER OR SMALLGOODS MAKER Office Visit [facility] [place] [address] [facility] 200 [place] [phone] Miriam Melton APRN [employer]O AIR CONDITIONING MECHANIC [address] [facility] 200 [place], [place] [id number] Scheduled Procedures Name Priority Associated Diagnoses Date/Ti me CREATION, GASTRIC BYPASS, SRIDHAR-EN-Y, LAPAROSCOPIC Morbid obesity (H) Duodenal stricture 08/07/2024 10:50 AM BUTCHER OR SMALLGOODS MAKER documented as of this encounter Visit Diagnoses Diagnosis Class 3 severe obesity due to excess calories with serious comorbidity and body mass index (BMI) of 50.0 to 59.9 in adult (H)- Primary Duodenal stenosis Other obstruction of duodenum Morbid obesity (H) Morbid obesity Duodenal stricture Other obstruction of duodenum documented in this encounter Additional Health Concerns Assessment Noted Time PHQ-9 Depression Total Score: 2 05/07/20 21 11:37 AM CDT documented as of this encounter Care Teams Sales Performance Manager Relationship Specialty Start Date End Date Herson Rhodes MD PCP - General 06/02/11 Clinic - [facility] [address] [place] [address] Assigned PCP 12/14/23 documented as of this encounter
--- OUTSIDE RECORDS SUMMARY | 2024-07-31 09:38 | XMS_ITS | Encounter Summary ---
Author Organization [facility] Address [address] [place] [address]. [place] [address] Care Team Providers Care Acetylene Cylinder Packing Mixer Name Role Phone Herson Rhodes MD Primary Care Provider [facility] Encounter Details Date Type Department Care Team (Late st Contact Info) Description 05/01/2024 Medical Correspondence [employer] Information Management [address] [facility] [address] [place] [address] Scan, Non-Provider Social History Tobacco Use Types [...] PM CDT Legal Sex Female 5:06 AM AUDITING CLERK Gender Identity Female 04/04/2021 10:28 PM CDT Sexual Orientation Straight 04/04/2021 10 :28 PM CDT documented as of this encounter Plan of Treatment Upcoming Encounters Date Type Department Care Team (Late st Contact Info) Description 08/07/2024 10:50 AM AUDITING CLERK Hospital Encounter [facility] [address] [place] [address] Aris Thurman MD [address] [place] [address] [place] [address] 08/07/2024 10:50 AM AUDITING CLERK - 08/07/2024 1:40 PM AUDITING CLERK Surgery [address] [address] [place] [address] [place] [address] CREATION, GASTRIC BYPASS, SRIDHAR-EN-Y, LAPAROSCOPIC 08/15/2024 1:00 PM AUDITING CLERK Virtual Visit [facility] [address] [address] 08/30/2024 12:30 PM AUDITING CLERK Virtual Visit [facility] [address] [address] Aris Thurman MD [address] [place] [address] 09/08/2024 11:00 AM AUDITING CLERK Virtual Visit [facility] [address] [address] Betty Leonardo, RD [address] [address] 11/06/2024 9:30 AM CDT Virtual Visit [facility] [address] [address] Dung Alva, PhD [employer] [address] [facility] 200 [place] [address] 11/07/2024 9:30 AM CDT Virtual Visit [facility] [address] 200 [place] [address] Hien Flood, RD 2945 [facility] 200 [place] [address] 02/08/2025 1:30 PM CDT Office Visit [facility] [address] 200 [place] [address] Miriam Melton APRN OIL PAINT SHADER [address] [place] [address] 05/09/2025 9:30 AM CDT Virtual Visit [facility] [address] 200 [place] [address] Hien Flood, RD [address] [facility] 200 [place] [address] 08/09/2025 1:30 PM AUDITING CLERK Office Visit [facility] [address] [phone] Miriam Melton APRN OIL PAINT SHADER [address] [place] [address] Scheduled Procedures Name Priority Associated Diagnoses Date/Ti me CREATION, GASTRIC BYPASS, SRIDHAR-EN-Y, LAPAROSCOPIC Morbid obesity (H) Duodenal stricture 08/07/2024 10:50 AM AUDITING CLERK documented as of this encounter Visit Diagnoses Not on filedocumented in this encounter Additional Health Concerns Assessment Noted Time PHQ-9 Depression Total Score: 2 05/07/20 21 11:37 AM CDT documented as of this encounter Care Teams Acetylene Cylinder Packing Mixer Relationship Specialty Start Date End Date Herson Rhodes MD PCP - General 06/02/11 Clinic - [facility] [id number] [place] [address] Assigned PCP 12/14/23 documented as of this encounter
--- OUTSIDE RECORDS SUMMARY | 2024-07-31 09:38 | XMS_ITS | Encounter Summary ---
Author Organization [facility] Address [address] [place] [address]. [place] [address] Care Team Providers Care Hog Ribber Name Role Phone Herson Rhodes MD Primary Care Provider [facility] Un[facility] e Ed Saenz MD Unavailable [phone] Unavailable [phone] Miriam Melton APRN PLANER MILL GRADER Unavailable [phone] Dung Alva PhD Unavailable [phone] Aris Thurman MD Unavailable [phone] Miriam Melton APRN PLANER MILL GRADER Unavailable [phone] Encounter Details Date Type Department Care Team (Late st Contact Info) Description 06/01/[address] [facility] [address] [address] Litzy Hall, RN Social History Tobacco Use Types Packs/Day [...] PM CDT Legal Sex Female 5:06 AM NANOTECHNOLOGY ENGINEERING TECHNICIAN Gender Identity Female 04/04/2021 10:28 PM CDT Sexual Orientation Straight 04/04/2021 10 :28 PM CDT documented as of this encounter Plan of Treatment Upcoming Encounters Date Type Department Care Team (Late st Contact Info) Description 08/07/2024 10:50 AM NANOTECHNOLOGY ENGINEERING TECHNICIAN Hospital Encounter [address] [address] Aris Thurman MD [address] [place] [address] 08/07/2024 10:50 AM NANOTECHNOLOGY ENGINEERING TECHNICIAN - 08/07/2024 1:40 PM NANOTECHNOLOGY ENGINEERING TECHNICIAN Surgery [address] [address] Aris Thurman MD [address] [place] [address] CREATION, GASTRIC BYPASS, SRIDHAR-EN-Y, LAPAROSCOPIC 08/15/2024 1:00 PM NANOTECHNOLOGY ENGINEERING TECHNICIAN Virtual Visit [facility] [address] [address] 08/30/2024 12:30 PM NANOTECHNOLOGY ENGINEERING TECHNICIAN Virtual Visit [facility] [address] 200 [place] [address] Aris Thurman MD [address] [place] [address] 09/08/2024 11:00 AM NANOTECHNOLOGY ENGINEERING TECHNICIAN Virtual Visit [facility] [address] [address] Betty Leonardo, RD [address] [place], [place] [address], [place] [address] 11/06/2024 9:30 AM CDT Virtual Visit [facility] [address] 200 [place] [address] Dung Alva, PhD [employer] [facility] [address] [place] [address] 11/07/2024 9:30 AM CDT Virtual Visit [facility] [address] 200 [place] [address] Hien Flood, RD 2945 [facility] 200 [place] [address] 02/08/2025 1:30 PM CDT Office Visit [facility] [address] 200 [place] [address] Miriam Melton APRN PLANER MILL GRADER [address] [place] [address] 05/09/2025 9:30 AM CDT Virtual Visit [facility] [address] 200 [place] [address] Hien Flood, RD [address]45 [facility] 200 [place] [address] 08/09/2025 1:30 PM NANOTECHNOLOGY ENGINEERING TECHNICIAN Office Visit [facility] [address] 200 [place] [address] Miriam Melton APRN PLANER MILL GRADER [address] [place] [address] 200 [place] [address] Scheduled Procedures Name Priority Associated Diagnoses Date/Ti me CREATION, GASTRIC BYPASS, SRIDHAR-EN-Y, LAPAROSCOPIC Morbid obesity (H) Duodenal stricture 08/07/2024 10:50 AM NANOTECHNOLOGY ENGINEERING TECHNICIAN documented as of this encounter Visit Diagnoses Not on filedocumented in this encounter Additional Health Concerns Assessment Noted Time PHQ-9 Depression Total Score: 2 05/07/20 21 11:37 AM CDT documented as of this encounter Care Teams Hog Ribber Relationship Specialty Start Date End Date Herson Rhodes MD PCP - General 06/02/11 [facility] [id number] [place] [address] Assigned PCP 12/14/23 dE Saenz MD [address] [place] [address] Assigned Surgical Provider 05/15/24 06/13/[address] [place] [address] 200 [place] [address] Registered Dietitian Dietitian, Registered 06/09/24 Miriam Melton APRN PLANER MILL GRADER [facility] 200 [place] [address] Assigned Surgical Provider 06/14/24 07/14/24 Dung Alva, PhD [employer]ONNA AND [employer] [facility] [address] [facility] 200 [place] [address] Assigned Behavioral Health Provider 06/14/24 Aris Thurman MD [address] [facility] 200 [place] [address] Assigned Surgical Provider 07/15/24 Miriam Melton APRN [facility] [address] [facility] 200 [place] [address] Nurse Practitioner Surgery 07/19/24 documented as of this encounter
--- OUTSIDE RECORDS SUMMARY | 2024-07-31 09:38 | XMS_ITS | Encounter Summary ---
Author Organization [facility] Address [address] [place] [address]. [place] [address] Care Team Providers Care Pt Skilled Name Role Phone Herson Rhodes MD Primary Care Provider [facility] Ed Saenz MD Unavailable [phone] Encounter Details Date Type Department Care Team [...] PM CDT Legal Sex Female 5:06 AM TOOL LAPPER HAND Gender Identity Female 04/04/2021 10:28 PM CDT Sexual Orientation Straight 04/04/2021 10 :28 PM CDT documented as of this encounter Plan of Treatment Upcoming Encounters Date Type Department Care Team (Late st Contact Info) Description 08/07/2024 10:50 AM TOOL LAPPER HAND Hospital Encounter M [facility] [address] [place] [address] Aris Thurman MD [address] [place] [address] 08/07/2024 10:50 AM TOOL LAPPER HAND - 08/07/2024 1:40 PM TOOL LAPPER HAND Surgery [facility] [address]75 [place] [address] [place] [address] [place] [address] CREATION, GASTRIC BYPASS, SRIDHAR-EN-Y, LAPAROSCOPIC 08/15/2024 1:00 PM TOOL LAPPER HAND Virtual Visit [facility] Care [address] [address] 08/30/2024 12:30 PM TOOL LAPPER HAND Virtual Visit [facility] [address] [address] Aris Thurman MD [address] [place] [address] 09/08/2024 11:00 AM TOOL LAPPER HAND Virtual Visit [facility] [address] [address] Betty Leonardo, RD [address] [address] 11/06/2024 9:30 AM CDT Virtual Visit [facility] [address] [address] Dung Alva, PhD [employer] [facility] [address] [address] 11/07/2024 9:30 AM CDT Virtual Visit [facility] [address] 200 [place] [address] [place] [address] [place] [address] 200 [place] [address] 02/08/2025 1:30 PM CDT Office Visit [facility] [address] 200 [place] [address] Miriam Melton APRN LEADERSHIP PROGRAM INTERN [address] [place] [address] 05/09/2025 9:30 AM CDT Virtual Visit [facility] Surgery [facility] and Bariatrics Care [address] 200 [place] [address] [place] [address] [place] [address] 08/09/2025 1:30 PM TOOL LAPPER HAND Office Visit [facility] [address] [address] Miriam Melton APRN LEADERSHIP PROGRAM INTERN [address] [place] [address] Scheduled Procedures Name Priority Associated Diagnoses Date/Ti me CREATION, GASTRIC BYPASS, SRIDHAR-EN-Y, LAPAROSCOPIC Morbid obesity (H) Duodenal stricture 08/07/2024 10:50 AM TOOL LAPPER HAND documented as of this encounter Visit Diagnoses Not on filedocumented in this encounter Additional Health Concerns Assessment Noted Time PHQ-9 Depression Total Score: 2 05/07/20 21 11:37 AM CDT documented as of this encounter Care Teams Pt Skilled Relationship Specialty Start Date End Date Herson Rhodes MD PCP - General 06/02/11 [facility] [address] [place] [address] Assigned PCP 12/14/23 Ed Saenz MD [address] [place] [address] Assigned Surgical Provider 05/15/24 documented as of this encounter
--- OUTSIDE RECORDS SUMMARY | 2024-07-31 09:38 | XMS_ITS | Encounter Summary ---
Author Organization [place] Address [address] [place] [address]. [place] [address] Care Team Providers Care Diesel Crane Operator Name Role Phone Herson Rhodes MD Primary Care Provider [phone] [facility] Unavailabl e Reason for Referral * Consultation (Routine) - Pending Review Specialty Diagnoses / Procedures Referred By Abdirizak trimble Referred To Contact Surgery Diagnoses Duodenal stenosis Kashif Su MD [facility] [address] [place] [address] [address] [place] [address] Phone: tel: fax: Referral ID Status Reason Start Date Expiration Date V isits Requested Visits Authorized [id number] Pending Review 05/02/2024 05/02/20[address] Saenz Question Answer Reason for Referral: Intestinal Intestinal Reason: Other My Clinical Question Is: duodenal stenosis Preferred Location: [facility] Gen Surg Scheduling Instructions: [facility] will call you to coordinate your care as prescribed by your provider. If you don't hear from a patient services representative within 2 business days, please call , option 2. Comments Please be aware that coverage of these services is subject to the terms and limitations of your health insurance plan. Call member services at your health plan with any benefit or coverage questions. [facility] will call you to coordinate your care as prescribed by your provider. If you don't hear from a patient services representative within 2 business days, please call , option 2. Encounter Details Date Type Department Care Team (Late st Contact Info) Description 05/02/2024 Transcribe Orders GENERIC EXTERNAL DATA DEPARTMENT Go, Kashif Wiley MD [facility] Leeroy [facility] [address] [place] [address] Duodenal stenosis (Primary Dx) Social History Tobacco [...] PM CDT Legal Sex Female 5:06 AM BAND BOOKER Gender Identity Female 04/04/2021 10:28 PM CDT Sexual Orientation Straight 04/04/2021 10 :28 PM CDT documented as of this encounter Plan of Treatment Upcoming Encounters Date Type Department Care Team (Late st Contact Info) Description 08/07/2024 10:50 AM BAND BOOKER Hospital Encounter [address] [phone] Aris Thurman MD [address] [place] [address] 08/07/2024 10:50 AM BAND BOOKER - 08/07/2024 1:40 PM BAND BOOKER Surgery [address] [address] Aris Thurman MD [address] [place] [id number] CREATION, GASTRIC BYPASS, SRIDHAR-EN-Y, LAPAROSCOPIC 08/15/2024 1:00 PM BAND BOOKER Virtual Visit [facility] [address] [place] [address] 08/30/2024 12:30 PM BAND BOOKER Virtual Visit [facility] [address] 200 [place] [address] Aris Thurman MD [address] [facility] [address] [place] [address] 09/08/2024 11:00 AM BAND BOOKER Virtual Visit [facility] [address] 200 [place] [address] Betty Leonardo, RD [address] [address] 11/06/2024 9:30 AM CDT Virtual Visit [facility] [address] [phone] Dung Alva, PhD RONNA AND [facility] [address] [facility] 200 [place] [address] 11/07/2024 9:30 AM CDT Virtual Visit [facility] [address] 200 [place] [address] Hien Flood, RD [address] [address] 02/08/2025 1:30 PM CDT Office Visit [facility] [address] [place] [address] Miriam Melton, RELATIONSHIP MANAGER TEST BORE HELPER [address] [place] [address] [address] [place] [address] 05/09/2025 9:30 AM CDT Virtual Visit [facility] [place] [address] [facility] 200 [place] [phone] Hien Flood, RD 2945 [facility] [address] [place] [address] 08/09/2025 1:30 PM BAND BOOKER Office Visit [facility] Surgery [facility] [place] [address] [place] [address] 200 [place] [phone] Miriam Melton, RELATIONSHIP MANAGER TEST BORE HELPER [address] [facility] [address] [place] [address] Scheduled Procedures Name Priority Associated Diagnoses Date/Ti me CREATION, GASTRIC BYPASS, SRIDHAR-EN-Y, LAPAROSCOPIC Morbid obesity (H) Duodenal stricture 08/07/2024 10:50 AM BAND BOOKER Scheduled Referrals Name Type Priority Associated Diagnoses Orde r Schedule Adult Gen Surg Lead Manufacturing Engineer Referral Referral Routine Duodenal stenosis Expected: 05/02/2024 (Approximate), Expires: 05/02/2025 documented as of this encounter Visit Diagnoses Diagnosis Duodenal stenosis- Primary Other obstruction of duodenum Morbid obesity (H) Morbid obesity Duodenal stricture Other obstruction of duodenum documented in this encounter Additional Health Concerns Assessment Noted Time PHQ-9 Depression Total Score: 2 05/07/20 21 11:37 AM CDT documented as of this encounter Care Teams Diesel Crane Operator Relationship Specialty Start Date End Date Herson Rhodes MD PCP - General 06/02/11 [facility] [address] [place] [address] Assigned PCP 12/14/23 documented as of this encounter
--- OUTSIDE RECORDS SUMMARY | 2024-07-31 09:38 | XMS_ITS | Encounter Summary ---
Author Organization [place] Address [address] [place] [address]. [place] [address] Care Team Providers Care Commercial Door Installer Name Role Phone Herson Rhodes MD Primary Care Provider [phone] [facility] e Encounter Details Date Type Department Care [...] PM CDT Legal Sex Female 5:06 AM DOCUMENTATION ANALYST Gender Identity Female 04/04/2021 10:28 PM CDT Sexual Orientation Straight 04/04/2021 10 :28 PM CDT documented as of this encounter Plan of Treatment Upcoming Encounters Date Type Department Care Team (Late st Contact Info) Description 08/07/2024 10:50 AM DOCUMENTATION ANALYST Hospital Encounter [facility] [address] [place] [address] Aris Thurman MD [address] [place] [address] 08/07/2024 10:50 AM DOCUMENTATION ANALYST - 08/07/2024 1:40 PM DOCUMENTATION ANALYST Surgery [facility] [address] [place] [address] Aris Thurman MD 2945 [facility] 200 [place] [address] CREATION, GASTRIC BYPASS, SRIDHAR-EN-Y, LAPAROSCOPIC 08/15/2024 1:00 PM DOCUMENTATION ANALYST Virtual Visit [facility] [address] 200 [place] [address] 08/30/2024 12:30 PM DOCUMENTATION ANALYST Virtual Visit [facility] [address] [place] [address] [place] [address] [place] [address] 200 [place] [address] 09/08/2024 11:00 AM DOCUMENTATION ANALYST Virtual Visit [facility] [address] [place] [address] Betty Leonardo, RD 2945 [facility] 200 [place] [address] 11/06/2024 9:30 AM CDT Virtual Visit [facility] [address] [place] [address] Dung Alva, PhD RONNA AND [facility] [facility] [address] [facility] 200 [place] [address] 11/07/2024 9:30 AM CDT Virtual Visit [facility] [address] [place] [address] Hien Flood, RD [address]45 [facility] 200 [place] [address] 02/08/2025 1:30 PM CDT Office Visit [facility] [address] [address] Miriam Melton, FINANCIAL SERVICE REPRESENTATIVE WAREHOUSE MAN [address] [place] [address] 05/09/2025 9:30 AM CDT Virtual Visit [facility] [address] [address] Hien Flood, RD [address] [address] 08/09/2025 1:30 PM DOCUMENTATION ANALYST Office Visit [facility] [address] [address] Miriam Melton, FINANCIAL SERVICE REPRESENTATIVE WAREHOUSE MAN [address] [place] [address] Scheduled Procedures Name Priority Associated Diagnoses Date/Ti me CREATION, GASTRIC BYPASS, SRIDHAR-EN-Y, LAPAROSCOPIC Morbid obesity (H) Duodenal stricture 08/07/2024 10:50 AM DOCUMENTATION ANALYST documented as of this encounter Visit Diagnoses Not on filedocumented in this encounter Additional Health Concerns Assessment Noted Time PHQ-9 Depression Total Score: 2 05/07/20 21 11:37 AM CDT documented as of this encounter Care Teams Commercial Door Installer Relationship Specialty Start Date End Date Herson Rhodes MD PCP - General 06/02/11 Clinic - [facility] [address] [place] [address] Assigned PCP 12/14/23 documented as of this encounter
--- OUTSIDE RECORDS SUMMARY | 2024-07-31 09:38 | XMS_ITS | Encounter Summary ---
Author Organization [place] Address [address] [place] [address]. [place] [address] Care Team Providers Care Road Mechanic Name Role Phone Herson Rhodes MD Primary Care Provider [facility] e Encounter Details Date Type Department [...] PM CDT Legal Sex Female 5:06 AM VINYL INSTALLER Gender Identity Female 04/04/2021 10:28 PM CDT Sexual Orientation Straight 04/04/2021 10 :28 PM CDT documented as of this encounter Plan of Treatment Upcoming Encounters Date Type Department Care Team (Late st Contact Info) Description 08/07/2024 10:50 AM VINYL INSTALLER Hospital Encounter [facility] [address] [place] [address] Aris Thurman MD [address] [place] [address] 08/07/2024 10:50 AM VINYL INSTALLER - 08/07/2024 1:40 PM VINYL INSTALLER Surgery [facility] [address] [place] [address] Aris Thurman MD 2945 [facility] 200 [place] [address] CREATION, GASTRIC BYPASS, SRIDHAR-EN-Y, LAPAROSCOPIC 08/15/2024 1:00 PM VINYL INSTALLER Virtual Visit [facility] [address] [place] [address] 08/30/2024 12:30 PM VINYL INSTALLER Virtual Visit [facility] [address] [place] [address] [place] [address] [place] [address] 200 [place] [address] 09/08/2024 11:00 AM VINYL INSTALLER Virtual Visit [facility] [address] [place] [address] Betty Leonardo, RD [address]45 [facility] 200 [place] [address] 11/06/2024 9:30 AM CDT Virtual Visit [facility] [address] [place] [address] Dung Alva, PhD RONNA AND [employer] [facility] [address] [facility] 200 [place] [address] 11/07/2024 9:30 AM CDT Virtual Visit [facility] [address] 200 [place] [address] Hien Flood, RD [address] [facility] 200 [place] [address] 02/08/2025 1:30 PM CDT Office Visit [facility] [address] [address] Miriam Melton, TWILL CUTTER PHYSICS PROFESSOR [address] [place] [address] 05/09/2025 9:30 AM CDT Virtual Visit [facility] [address] [address] Hien Flood, RD [address] [address] 08/09/2025 1:30 PM VINYL INSTALLER Office Visit [facility] [address] [address] Miriam Melton, TWILL CUTTER PHYSICS PROFESSOR [address] [place] [address] Scheduled Procedures Name Priority Associated Diagnoses Date/Ti me CREATION, GASTRIC BYPASS, SRIDHAR-EN-Y, LAPAROSCOPIC Morbid obesity (H) Duodenal stricture 08/07/2024 10:50 AM VINYL INSTALLER documented as of this encounter Visit Diagnoses Not on filedocumented in this encounter Additional Health Concerns Assessment Noted Time PHQ-9 Depression Total Score: 2 05/07/20 21 11:37 AM CDT documented as of this encounter Care Teams Road Mechanic Relationship Specialty Start Date End Date Herson Rhodes MD PCP - General 06/02/11 Clinic - [facility] [address] [place] [address] Assigned PCP 12/14/23 documented as of this encounter
== END 2024-07-31 09:31 | disposition home or self-care (01) ==
PROVIDERS: PCP Family Medicine; Visit Provider Family Medicine
DX: Z01.818 Encounter for other preprocedural examination (principal); E11.9 Type 2 diabetes mellitus without complications; I10 Essential (primary) hypertension; E66.01 Morbid (severe) obesity due to excess calories
CPT/HCPCS: 80053; 85025; 85610; 85730; 87086

== ENCOUNTER 2024-09-02 08:21 | Emergency (ER) | payer OTHER, SELFPAY ==
--- OUTSIDE RECORDS SUMMARY | 2024-09-02 08:25 | XMS_ITS ---
Author Organization [facility] Address [address] [place] [address] Care Team Providers Care Forklift Picker Name Role Phone None, No PCP Primary Care Provider Adenike Spain Unavailable [phone] Allergies Allergen (clinical drug ingredient) Drug/Non Drug [...] Problem Status W/U Status Risk Notes Problem [id number] Obesity, morbid, BMI 50 or higher (E66.01) Active confirmed Vital Signs Blood pressure systolic 126 mm Hg 07/27/20 24 Blood pressure diastolic 80 mm Hg 024 Height 64.50 in 07/27/2024 Weight 298.0 lbs 07/27/2024 BMI 50.36 kg/m2 07/27/2024 Encounters Encounter Location Date Provider Diagnosis [facility] [address] [place] [address] 07/27/2024 Adenike Hatfield Hormone replacement therapy (HRT) [...] - discussion of care with another health home care nurse if indicated - direct face to face [...] - discussion of care with another health home care nurse if indicated - direct face to face [...] Next Appt Details Follow Up: 3 Months,shawandan, White son: Provider Name:Adenike Tolentino meghan, 10/31/2024 10:15:00 AM, [address] [place], [address], Provider Name:Adenike christianson, 11/09/2024 10:00:00 AM, [address] [place], [address], Progress Notes * Rylee GARCIAAnelB:[birth year] (43 yo F)Acc No.[id number]:07/27/2024 Patient: Sofia ELLIOTT Provider: Cira Hatfield MD :1980 A ge:43 Y S ex:Female Date:07/27/2024 [facility] Pcp:No PCP None Subjective: * Chief [...] obesity and HPI. 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 * Procedure Codes: * AL WORK SPECIALIST Sign off status: Completed true * Provider: Cira Hatfield MD Date: 09/27/2023 Generated for Brooke jean-baptiste/Liana/Darrenitting on: 0 09/02/2024 08:25 AM SOCIAL WORK SPECIALIST History and Physical Notes * HPI (History [...]
--- OUTSIDE RECORDS SUMMARY | 2024-09-02 08:26 | XMS_ITS | Referral Summary ---
Author Organization [facility] Address [address] [place] [address]. [place] [address] Care Team Providers Care Stretcher Leveler Operator Helper Name Role Phone Herson Rhodes MD Primary Care Provider [facility] Unavailabl e Hien Flood RD Unavailable [phone] Dung Alva PhD Unavailable [phone] Aris Thurman MD Unavailable [phone] Miriam Melton APRN STOCK TRADER Unavailable [phone] Encounters Date Type Department Care Team Description 08/30/2024 12:30 PM PATROL SUPERVISOR Virtual Visit [facility] Surgery [facility] [address] [phone] Aris Thurman MD S/P gastric bypass (Primary Dx) 08/14/2024 MyC Medical Advice [facility] [address] [phone] 08/14/2024 1:00 PM PATROL SUPERVISOR Virtual Visit [facility] [address] [phone] Bariatric surgery status (Primary Dx) 08/10/2024 MyC Medical Advice [facility] [address] [place] [address] Litzy Hall, RN 08/10/2024 Telephone [facility] [address] [place] [phone] Litzy Hall RN Post-op Phone Call 08/07/2024 8:47 AM PATROL SUPERVISOR - 08/08/2024 3:24 PM PATROL SUPERVISOR Hospital Encounter [facility] [address] [place] [phone] Aris Thurman MD Morbid (severe) obesity due to excess calories (H) (Primary Dx); S/P gastric bypass Discharge Disposition: Home or Self Care 08/07/2024 MyC Medical Advice [facility] [address] [place] [phone] Hein Flood, ZEINAB 08/07/2024 9:20 AM PATROL SUPERVISOR Ancillary Procedure [facility] Ultrasound [address] [place] [phone] Timo Elam MD 08/07/2024 10:51 AM PATROL SUPERVISOR Anesthesia Event [address] [phone] Aubrey Gutierrez MD Anderson, Raleigh F, MD 08/07/2024 10:09 AM PATROL SUPERVISOR - 08/07/2024 12:59 PM PATROL SUPERVISOR Surgery [address] [phone] Arsi Thurman MD CREATION, GASTRIC BYPASS, SRIDHAR-EN-Y, LAPAROSCOPIC 07/19/2024 Travel 07/19/2024 12:30 PM PATROL SUPERVISOR Allied Health/Nurse Visit [facility] [address] [place] [phone] Bariatric (Pre-op Class/); Pt Ed 07/18/2024 Travel 07/18/2024 MyC Medical Advice [facility] [address] [place] [phone] Esau [facility] 07/17/2024 MyC Medical Advice [facility] [address] [place] [phone] Litzy Hall RN 07/17/2024 MyC Medical Advice [facility] [address] [place] [phone] KevinRadha L 07/17/2024 Documentation Only [facility] [address] [place] [phone] KevinRadha L 07/06/2024 Documentation Only [facility] [address] [place] [phone] KevinRadha L 07/05/2024 Travel 07/05/2024 1:30 PM PATROL SUPERVISOR Office Visit [facility] [address] [place] [phone] Aris Thurman MD Morbid obesity with BMI of 45.0-49.9, adult (H) (Primary Dx); BLAISE (obstructive sleep apnea); Morbid obesity (H); Duodenal stricture 07/04/2024 Travel 06/29/2024 Travel 06/29/2024 11:00 AM PATROL SUPERVISOR Lab [facility] [address] [place] [address] History of tobacco use 06/28/2024 MyC Medical Advice [facility] [address] [place] [phone] Litzy Hall RN prep for surgery 06/28/2024 9:30 AM PATROL SUPERVISOR Virtual Visit [facility] [address] [phone] Dung Alva, PhD Morbid obesity (H) (Primary Dx) 06/27/2024 MyC Medical Advice [facility] [address] [phone] Litzy Hall RN Morbid obesity with BMI of 45.0-49.9, adult (H) (Primary Dx); Pre-diabetes 06/26/2024 2:30 PM PATROL SUPERVISOR Virtual Visit [facility] [address] [phone] Morbid obesity with BMI of 45.0-49.9, adult (H) (Primary Dx); Pre-bariatric surgery nutrition evaluation 06/14/2024 MyC Medical Advice Initial Department [facility] 06/14/2024 [facility] Medical Advice Initial Department [facility] 06/12/2024 9:00 AM CDT Virtual Visit [facility] [address] [phone] Dung Alva, PhD Morbid obesity (H) (Primary Dx) 06/09/2024 10:00 AM CDT Virtual Visit [facility] [address] [phone] Morbid obesity with BMI of 45.0-49.9, adult (H) (Primary Dx); Pre-bariatric surgery nutrition evaluation 06/05/2024 11:00 AM CDT Virtual Visit [facility] [place] [address] [place] [phone] 1, Sh Wl Diet, RD Obesity (Primary Dx) 06/02/2024 Travel 06/02/2024 Telephone [facility] [address] [place] [phone] KevinRadha from Last 3 Months Allergies Active Allergy Reactions Criticality Noted Date Comments Compazine 09/26/2009 Restless legs Levofloxacin 06/02/2017 Other reaction(s): GI Upset Nsaids High 08/08/2024 Patient is s/p gastric bypass and can not have NSAIDs that are administered orally secondaryto high risk of ulceration. Patient is able to have NSAIDs via IV, IM, and rectal routes in acute pain situations. Promethazine-Dm 12/12/2012 Restless legs Medications baclofen (LIORESAL) 20 MG tablet Take 40 mg by mouth 3 times daily. (Takes 2 x 20mg = 40mg) Active topiramate (TOPAMAX) 100 MG tablet Take 100 mg by mouth 2 times daily Active fluticasone (FLONASE) 50 MCG/ACT nasal spray Pinson 2 sprays into both nostrils daily as needed for allergies. Active lamoTRIgine (LAMICTAL) 150 MG tablet Take 150 mg by mouth daily. Active doxazosin (CARDURA) 1 MG tablet Take 1 mg by mouth at bedtime. Active pregabalin (LYRICA) 150 MG capsule Take 150 mg by mouth 2 times daily. Active cetirizine (ZYRTEC) 10 MG tablet Take 10 mg by mouth daily. Active cyanocobalamin (VITAMIN B-12) 1000 MCG sublingual tabletIndicati ons:Morbid obesity (H),S/P bariatric surgery,Intest inal malabsorption, unspecified type Place 1 tablet (1,000 mcg) under the tongue daily. Start right after surgery. 90 tablet 3 024 Active Pediatric Multivitamins- Iron (MULTIVITAMINS PLUS IRON CHILD) 18 MG CHEWIndication s:Morbid obesity (H),S/P bariatric surgery,Intest inal malabsorption, unspecified type Take 1 chew tab by mouth 2 times daily. Ok to substitute with any chewable that contains 18 mg of iron, Vitamin A, Thiamine and Zinc. 180 tablet 3 024 Active ursodiol (ACTIGALL) 300 MG capsuleIndicat ions:Morbid obesity (H),S/P bariatric surgery,Rapid weight loss Take 1 capsule (300 mg) by mouth 2 times daily. Start 2 weeks after surgery, do not open-take with warm liquid. Take twice a day for 6 months. 180 capsule 1 2024 Active traZODone (DESYREL) 100 MG tablet Take 100 mg by mouth at bedtime. Active acetaminophen (TYLENOL) 500 MG tablet Take 2 tablets (1,000 mg) by mouth every 6 hours as needed for mild pain. Do not take this while taking scheduled Tylenol after surgery. You can resume taking acetaminophen as needed 4 days after surgery when scheduled doses are done. Active biotin 2.5 MG TABS Take by mouth daily. Do not start taking after surgery until advised by rn home health in post-op class. Active estradiol (CLIMARA) 0.05 MG/24HR weekly patch Place 1 patch onto the skin 2 times a week. Continue to hold until 30 days after surgery Active furosemide (LASIX) 20 MG tablet Take 1 tablet (20 mg) by mouth daily. Hold for 2 weeks after surgery Active vitamin D3 (CHOLECALCIFER OL) 50 mcg (2000 units) tablet Take 2 tablets (100 mcg) by mouth daily. Do not start taking after surgery until advised by rn home health in post-op class. Active DULoxetine (CYMBALTA) 30 MG capsule Take 1 capsule (30 mg) by mouth daily. Open capsule and place into pudding or yogurt. Make a well in the pudding, put the beads into the well and cover it. Take entire medication in one bite and do not chew (beads can not be broken between teeth), swallow as a pudding/yogurt pill. Active DULoxetine (CYMBALTA) 60 MG capsule Take 1 capsule (60 mg) by mouth daily. Open capsule and place into pudding or yogurt. Make a well in the pudding, put the beads into the well and cover it. Take entire medication in one bite and do not chew (beads can not be broken between teeth), swallow as a pudding/yogurt pill. Active metoprolol tartrate (LOPRESSOR) 50 MG tabletIndicati ons:Morbid (severe) obesity due to excess calories (H),S/P gastric bypass Take 1 tablet (50 mg) by mouth 2 times daily. 84 tablet 2024 Active omeprazole (PRILOSEC) [address] capsule Take 1 capsule (40 mg) by mouth daily. Open and sprinkle capsule for the first 6 weeks after surgery. Then can resume taking it whole Active metoprolol succinate ER (TOPROL XL) 100 MG 24 hr tablet Take 1 tablet (100 mg) by mouth daily. Can restart in 6 weeks when able to take medications whole Active metoprolol succinate ER (TOPROL XL) 100 MG 24 hr tablet Take 100 mg by mouth daily 2023 Discontinued celecoxib (CELEBREX) 200 MG capsule Take 200 mg by mouth 2 times daily. 2023 Discontinued(S top at Discharge) omeprazole (PRILOSEC) [address] capsule Take 40 mg by mouth 2 times daily. 2023 Discontinued estradiol (CLIMARA) 0.05 MG/24HR weekly patch Place 1 patch onto the skin 2 times a week. 2023 Discontinued DULoxetine (CYMBALTA) 30 MG capsule Take 30 mg by mouth daily. 2023 Discontinued DULoxetine (CYMBALTA) 60 MG capsule Take 60 mg by mouth daily. 2023 Discontinued furosemide (LASIX) 20 MG tablet Take 20 mg by mouth daily. 2023 Discontinued Tirzepatide (MOUNJARO) 7.5 MG/0.5ML SOAJIndication s:Morbid obesity with BMI of 45.0-49.9, adult (H),Pre-diabet es Inject 0.5 mLs (7.5 mg) subcutaneously every 7 days. 2 mL 2023 Discontinued(S top at Discharge) vitamin D3 (CHOLECALCIFER OL) 50 mcg (2000 units) tablet Take 2 tablets by mouth daily. 2023 Discontinued BIOTIN PO Take 1 tablet by mouth daily. 2023 Discontinued acetaminophen (TYLENOL) 500 MG tablet Take 1,000 mg by mouth every 6 hours as needed for mild pain. 2023 Discontinued Acetaminophen (TYLENOL DISSOLVE PACKS) 500 MG PACKIndication s:Morbid (severe) obesity due to excess calories (H),S/P gastric bypass Take 1,000 mg by mouth every 6 hours for 3 days. 24 each 024 2023 traMADol (ULTRAM) 50 MG tabletIndicati ons:Morbid (severe) obesity due to excess calories (H),S/P gastric bypass Take 1 tablet (50 mg) by mouth every 6 hours as needed for moderate pain (pain). 10 tablet 024 2024 Discontinued(T herapy completed (No AVS)) Active Problems Problem Noted Date Diagnosed Date Morbid (severe) obesity due to excess calories 1 10/08/2023 Obesity (BMI 35.0-39.9) with comorbidity 019 Vaginal Pap smear 09/27/2017 Overview (05/14/2021): 2006 LEEP- will need paps x 20 years regardless of removal of cervix or age- until 2025 '11, '12, '15 NIL paps- 12/19/15 total hysterectomy including cervix. [...] PHQ-2 Answer Date Recorded PHQ-2 Score 0 08/30/2024 Adolescent Education Answer Date Record ed Getting School Help Needed Not on file 06/09 Comments No Sex and Gender Information Value Date Recorded Sex Assigned at Female 04/04/2021 10:28 PM CDT Legal Sex Female 5:06 AM PATROL SUPERVISOR Gender Identity Female 04/04/2021 10:28 PM CDT Sexual Orientation Straight 04/04/2021 10 :28 PM CDT Last Filed Vital Signs Vital Sign Reading Time Taken Comments Blood Pressure 105/56 08/08/2024 7:44 AM PATROL SUPERVISOR Pulse 58 08/08/2024 7:44 AM PATROL SUPERVISOR Temperature 36.4 C (97.5 F) 08/08/2024 7:44 AM PATROL SUPERVISOR Respiratory Rate 19 08/08/2024 7:44 AM PATROL SUPERVISOR Oxygen Saturation 96% 08/08/2024 7:44 AM PATROL SUPERVISOR Inhaled Oxygen Concentration - - Weight 123.4 kg (272 lb) 08/30/2024 12:25 PM PATROL SUPERVISOR Height 165.1 cm (5' 5) 08/30/2024 12:25 PM PATROL SUPERVISOR Body Mass Index 45.26 08/30/2024 12:25 PM PATROL SUPERVISOR Plan of Treatment Upcoming Encounters Date Type Department Care Team (Late st Contact Info) Description 09/08/2024 11:00 AM PATROL SUPERVISOR Virtual Visit [facility] [address] [place] [phone] Betty Leonardo, RD [address] [facility] [address] [place] [address] 11/06/2024 9:30 AM CDT Virtual Visit [facility] [address] [phone] Dung Alva, PhD RONNA [employer] Dick or Bro [facility] [address] [facility] [address] [place] [address] 11/07/2024 9:30 AM CDT Virtual Visit [facility] [address] [place] [phone] Hien Flood, RD [address] [facility] [address] [place] [address] 02/08/2025 1:30 PM CDT Office Visit [facility] [address] [place] [phone] Miriam Melton, DEE STOCK TRADER [address] [address] 05/09/2025 9:30 AM CDT [facility] [place] [address] [facility] [address] [place] [phone] Hien Flood, ZEINAB [address] [facility] [address] [place] [address] 08/09/2025 1:30 PM PATROL SUPERVISOR Office Visit [facility] [place] [address] [facility] [address] [place] [phone] Miriam Melton, GARNETTER STOCK TRADER [address] [facility] 200 [place], [place] [phone] Medical Devices Implanted Type Area Medical Liaison Device Identifier Shelf Expiration Date Model / Serial / Lot Primeadvanced Surescan Mri Neurostimulator Implanted:Qty: 1 on 02/14/2014 by Aj Perkins MD at [facility] Left: Buttocks [employer] 03/19/2015 [id number] / [id number] / Explanted Type Area Medical Liaison Device Identifier Shelf Expiration Date Model / Serial / Lot Prime Advanced Neurostimulator Implanted:Qty: 1 on 03/16/[address] [facility] Explanted:Qty: 1 on 02/14/2014 by Aj Perkins MD at [facility] Left: Buttocks [employer] 03/05/2012 [id number] / [id number] H / Description:Prime advanced M ulti program Neurostimulator [employer] Procedures Procedure Name Priority Date/Time Associated Diagnosis Comments EXTRA PURPLE TOP EDTA (LAB USE ONLY) Routine 08/08/2024 6:23 AM PATROL SUPERVISOR CREATININE Routine 08/08/2024 6:23 AM PATROL SUPERVISOR CREATININE Routine 08/07/2024 4:10 PM PATROL SUPERVISOR PLATELET COUNT Routine 08/07/2024 4:10 PM PATROL SUPERVISOR ANE AIRWAY ETT PERFORMABLE Routine 08/07/2024 10:54 AM PATROL SUPERVISOR CREATION, GASTRIC BYPASS, SRIDHAR-EN-Y, LAPAROSCOPIC 08/07/2024 10:48 AM PATROL SUPERVISOR Morbid obesity (H) Duodenal stricture Special Needs BMI 49.09Staff assist ANE SPINAL BLOCK FORM Routine 08/07/2024 10:24 AM PATROL SUPERVISOR POC US GUIDANCE NEEDLE PLACEMENT Routine 08/07/2024 9:18 AM PATROL SUPERVISOR GLUCOSE BY METER Routine 08/07/2024 9:02 AM PATROL SUPERVISOR LAB RESULT - HIM SCAN 07/31/2024 12:00 AM PATROL SUPERVISOR EKG CARDIAC - HIM SCAN 07/31/2024 12:00 AM PATROL SUPERVISOR XRAY IMAGING - HIM SCAN 07/31/2024 12:00 AM PATROL SUPERVISOR NICOTINE AND METS, URN, QUANT Routine 06/29/2024 10:50 AM PATROL SUPERVISOR History of tobacco use LIPID PROFILE Routine 05/18/2024 11:25 AM CDT [...] Recently Relevant to Health Maintenance Results * Extra Purple Top EDTA (LAB USE ONLY) (08/08/2024 6:23 AM PATROL SUPERVISOR) Hold Specimen JI 08/08/2024 7:46 AM PATROL SUPERVISOR [facility] Blood STRUCTURE OF RIGHT UPPER LIMB / Unknown Venipuncture / Unknown 08/08/2024 6:23 AM PATROL SUPERVISOR 08/08/2024 6:45 AM PATROL SUPERVISOR Aris Thurman MD LAB - BLOOD ORDERABLES Final Result Performing Organization Address [facility] Co de Phone Number [facility] [address] [place] [address], [facility] * Creatinine (08/08/2024 6:23 AM PATROL SUPERVISOR) Only the most recent of2 resultswithin the time period is included. Creatinine 0.92 0.51 - 0.95 mg/dL 08/08/2024 7:04 AM PATROL SUPERVISOR [facility] GFR Estimate 79 >60 mL/min/1.7 3m2 08/08/2024 7:04 AM PATROL SUPERVISOR [facility] Comment:eGFR calculated in 2020 CKD-EPI equation. Blood STRUCTURE OF RIGHT UPPER LIMB / Unknown Venipuncture / Unknown 08/08/2024 6:23 AM PATROL SUPERVISOR 08/08/2024 6:45 AM PATROL SUPERVISOR Miriam Melton APRN, CNP LAB - BLOOD ORDERABL ES Final Result Performing Organization Address [facility] Co de Phone Number [facility] [address] [place] [address], [facility] * Platelet count (08/07/2024 4:10 PM PATROL SUPERVISOR) Platelet Count 314 150 - 450 10e3/uL 08/07/2024 4:31 PM PATROL SUPERVISOR [facility] Blood STRUCTURE OF RIGHT UPPER LIMB / Unknown Venipuncture / Unknown 08/07/2024 4:10 PM PATROL SUPERVISOR 08/07/2024 4:24 PM PATROL SUPERVISOR Aris Thurman MD LAB - BLOOD ORDERABLES Final Result Performing Organization Address [facility] Co de Phone Number [facility] [address] [place] [address], [facility] * ANE AIRWAY ETT PERFORMABLE (08/07/2024 10:54 AM PATROL SUPERVISOR) Narrative Lazarus Mendez APRN CRNA - 08/07/2024 10:54 AM PATROL SUPERVISOR Lazarus Mendez APRN CRNA 08/07/2024 11:10 AM Airway Patient location during procedure: OR Procedure Start/Stop Times: 08/07/2024 10:54 AM Staff - COMP FIELD CASE MANAGER: Lazarus Mendez APRN CRNA Performed By: COMP FIELD CASE MANAGER Consent for Airway Urgency: elective Indications and Patient Condition Indications for airway management: shar-procedural Induction type:intravenous Mask difficulty assessment: 1 - vent by mask Final Airway Details Final airway type: endotracheal airway Successful airway: ETT - single Endotracheal Airway Details ETT size (mm): 7.5 Cuffed: yes Successful intubation technique: video laryngoscopy VL Blade Size: Glidescope 3 Grade View of Cords: 1 Adjucts: stylet Position: Right Measured from: lips Secured at (cm): 23 Bite block used: None Post intubation assessment Placement verified by: capnometry, equal breath sounds and chest rise Number of attempts at approach: 1 Number of other approaches attempted: 0 Secured with: tape Ease of procedure: easy Dentition: Intact and Unchanged Medication(s) Administered Medication Administration Time: 08/07/2024 10:54 AM us Aubrey Gutierrez MD [place] ANESTHESIA Final Resul t * Spinal Block (08/07/2024 10:24 AM PATROL SUPERVISOR) Narrative Aubrey Gutierrez MD - 08/07/2024 10:24 AM PATROL SUPERVISOR Aubrey Gutierrez MD 08/07/2024 10:25 AM Intrathecal injection Procedure Note Pre-Procedure Staff - Anesthesiologist: Aubrey Gutierrez MD Performed By: anesthesiologist Location: pre-op Procedure Start/Stop Times: 08/07/2024 10:24 AM and 08/07/2024 10:24 AM Pre-Anesthestic Checklist: patient identified, IV checked, risks and benefits discussed, informed consent, monitors and equipment checked, pre-op evaluation, at physician/surgeon's request and post-op pain management Timeout: Correct Patient: Yes Correct Procedure: Yes Correct Site: Yes Correct Position: Yes Procedure Documentation Procedure: intrathecal injection Insertion Site: L4-5. (midline approach). # of attempts: 1 and # of redirects: Assessment/Narrative Paresthesias: No. CSF fluid: clear. Medication(s) Administered Morphine PF 1 mg/mL (Intrathecal) - Intrathecal 0.2 mg - 08/07/2024 10:24:00 AM Medication Administration Time: 08/07/2024 10:24 AM FOR [facility] ONLY: Pain Team Contact information: please page the Pain Team Via [employer]. Search Pain. During daytime hours, please page the attending first. At night please page the resident first. us Aubrey Gutierrez MD [place] ANESTHESIA Final Resul t * POC US Guidance Needle Placement (08/07/2024 9:18 AM PATROL SUPERVISOR) Narrative [facility] - 08/07/2024 9:18 AM PATROL SUPERVISOR Ultrasound was performed as guidance to an anesthesia procedure. Click PACS images hyperlink below to view any stored images. For specific procedure details, view procedure note authored by anesthesia. us Timo Elam MD IMG POCUS Final Resu lt [facility] * (ABNORMAL) Glucose by meter (08/07/2024 9:02 AM PATROL SUPERVISOR) [facility] Signature GLUCOSE BY METER POCT 112(H) 70 - 99 mg/dL 08/07/2024 9:09 AM PATROL SUPERVISOR [facility] POCT RESULTS Blood, Capillary BLOOD SPECIMEN / Unknown 08/07/2024 9:02 AM PATROL SUPERVISOR 08/07/2024 9:09 AM PATROL SUPERVISOR us Aris Thurman MD LAB - BEAKER POCT Final Result Performing Organization Address City/[facility]/ZIP Co de Phone Number [facility] POCT RESULTS [address] [place] [address] * Lab Result - HIM Scan (07/31/2024 12:00 AM PATROL SUPERVISOR) 07/31/2024 us Provider Outside NON-BEAKER LAB TESTING Final Result * Xray Imaging - HIM Scan (07/31/2024 12:00 AM PATROL SUPERVISOR) Anatomical Region Laterality Modality Other 07/31/2024 us Provider Outside IMG DIAGNOSTIC IMAGING ORDERABL ES Final Result * EKG Cardiac - HIM Scan (07/31/2024 12:00 AM PATROL SUPERVISOR) 07/31/2024 us Provider Outside ECG ORDERABLES Final Result * Nicotine and Mets, Urn, Quant (06/29/2024 10:50 AM PATROL SUPERVISOR) Cotinine Confirm <15 ng/mL 07/02/20 9:09 PM PATROL SUPERVISOR [facility] Nicotine Confirmation Urine <15 ng/mL 07/02/2024 9:09 PM PATROL SUPERVISOR [facility] Comment: INTERPRETIVE INFORMATION: Nicotine and Metabolites, Urine, Quantitative Methodology: Quantitative Liquid Chromatography-Tandem Mass Spectrometry Positive cutoff: Nicotine 15 ng/mL Cotinine 15 ng/mL [id number] 50 ng/mL Anabasine 5 ng/mL For medical [...] developed and its performance characteristics determined by [facility]. It has not been cleared or approved by the [place] Food and Drug Administration. This test was performed in a CLIA certified laboratory and is intended for clinical purposes. Performed By: [facility] [address] [place] [id number] [address] Operator: Ceasar Romero MD, PhD CLIA Number: [id number], Urn, Quant <50 ng/mL 07/02/2024 9:09 PM PATROL SUPERVISOR [facility] Anabasine, Urn, Quant <5 ng/mL 07/02/2024 9:09 PM PATROL SUPERVISOR [facility] Urine URINE SPECIMEN OBTAINED BY CLEAN CATCH PROCEDURE / Unknown Non-blood Collection / Unknown 06/29/2024 10:50 AM PATROL SUPERVISOR 06/29/2024 10:51 AM PATROL SUPERVISOR Miriam Melton APRN STOCK TRADER LAB - URINE ORDERABL ES Final Result [facility] [address] [place] [address], [facility] [phone] * (ABNORMAL) Lipid Profile (05/18/2024 11:25 AM [...] High: >= 220 mg/dL Miriam Melton APRN STOCK TRADER LAB - BLOOD ORDERABL ES Final Result [facility] [address] [facility], [address] [place] [address] [facility] * Mammogram - HIM Scan (05/02/2024 12:00 AM CDT) Anatomical Region Laterality Modality Other 05/02/2024 Provider Outside IMG MAMMOGRAPHY ORDERABLES Elise l Result * Pap thin layer screen with HPV - recommended age 30 - 65 years (05/07/2021 11:50 AM CDT) Interpretation Negative for Intraepithelial Lesion or Malignancy (NILM) 05/09/2021 2:32 PM CDT [facility] Specimen Adequacy Satisfactory for evaluation, endocervical/paul sformation zone component absent 05/09/2021 2:32 PM CDT [facility] Clinical Information complete hysterectomy 05/09/2021 2:32 PM CDT [facility] Reflex Testing Yes regardless of result 05/09/2021 2:32 PM CDT [facility] Previous Abnormal? No 05/09/2021 2:32 PM CDT [facility] Performing Labs The technical component of this testing was completed at [facility] 05/09/2021 2:32 PM CDT [facility] Brushing VAGINAL STRUCTURE / Unknown 05/07/2021 11:50 AM CDT 05/07/2021 12:21 PM CDT Alan Shah MD LAB - BEAKER AP Final Result Performing Organization Address City/[facility]/ZIP Co de Phone Number [facility] [address] [place] [address], [facility] [phone] * HPV High Risk Types DNA Cervical (05/07/2021 11:50 AM CDT) Other HR HPV Negative Negative 05/13/2021 2:50 PM CDT [facility] HPV16 DNA Negative Negative 05/13/2021 2:50 PM CDT [facility] MOLECULAR DIAGNOSTICS HPV18 DNA Negative Negative 05/13/2021 2:50 PM CDT [facility] FINAL DIAGNOSIS This patient's sample is negative for HPV DNA. This test was developed and its performance characteristics determined by the [facility], Molecular Diagnostics Laboratory. It has not [...] followup is recommended. 05/13/2021 2:50 PM CDT [facility] Brushing VAGINAL STRUCTURE / Unknown Non-blood Collection / Unknown 05/07/2021 11:50 AM CDT 05/12/2021 8:50 AM CDT Alan Shah MD LAB - BLOOD ORDERABLES Final Result [facility] Molecular Diagnostics Lab [address] [facility], [address] [place] [address], [facility] [phone] * HIV 1 and 2 rapid screen [...] or Most Recently Relevant to Health Maintenance Insurance [facility] CHO[facility] Advance Directives For more information, please contact: [phone] * Full Code (Latest Code Status on File) Date Activated Date Inactivated Comments 08/07/2024 3:24 PM 08/08/2024 5:30 PM All basic and advanced life-sustaining interventions are performed as appropriate Question Answer Comments Code status determined by: Discussion with patie nt/ legal decision maker * Full Code Date Activated Date Inactivated Comments 12/19/2015 3:02 PM 12/20/2015 1:10 PM Care Teams Stretcher Leveler Operator Helper Relationship Specialty Start Date End Date Herson Rhodes MD PCP - General 06/02/11 [facility] [id number] [place] [address] Assigned PCP 12/14/[address] [place] [address] Registered Dietitian Dietitian, Registered 06/09/24 Dung Alva, PhD [facility] [address] [address] Assigned Behavioral Health Provider 06/14/24 Aris Thurman MD [address] [place] [address] Assigned Surgical Provider 07/15/24 Miriam Melton APRN STOCK TRADER [address] [place] [address] Nurse Practitioner Surgery 07/19/24
--- OUTSIDE RECORDS SUMMARY | 2024-09-02 08:26 | XMS_ITS | Encounter Summary ---
Author Organization [facility] Address [address] [place] [address]. [place] [address] Care Team Providers Care Charging Operator Name Role Phone Herson Rhodes MD Primary Care Provider [facility] Unavailabl e Hien Flood RD Unavailable [phone] Dung Alva PhD Unavailable Aris Thurman MD Unavailable [phone] Miriam Melton APRN CAN BANDER OPERATOR Unavailable [phone] Encounter Details Date Type Department Care Team (Late st Contact Info) Description 08/14/2024 MyC Medical Advice [facility] [place] [address] [place] [address] [address] [place] [phone] Hien Flood, ZEINAB [address] [facility] 200 [place] [address] Social History Tobacco Use Types Packs/Day Years [...] PM CDT Legal Sex Female 5:06 AM ACCOUNT DEVELOPER Gender Identity Female 04/04/2021 10:28 PM CDT Sexual Orientation Straight 04/04/2021 10 :28 PM CDT documented as of this encounter Plan of Treatment Upcoming Encounters Date Type Department Care Team (Late st Contact Info) Description 09/08/2024 11:00 AM ACCOUNT DEVELOPER Virtual Visit [facility] [address] [place] [address] Betty Leonardo, RD 2945 [facility] 200 [place] [address] 11/06/2024 9:30 AM CDT Virtual Visit [facility] [address] [place] [address] Dung Alva, PhD [facility] [employer] [facility] [address] [facility] 200 [place] [address] 11/07/2024 9:30 AM CDT Virtual Visit [facility] [address] [place] [address] Hien Flood, RD 2945 [facility] 200 [place] [address] 02/08/2025 1:30 PM CDT Office Visit [facility] [address] [place] [address] Miriam Melton, DEE CAN BANDER OPERATOR 2945 [facility] 200 [place] [address] 05/09/2025 9:30 AM CDT Virtual Visit [facility] [address] [phone] [place] [address] 08/09/2025 1:30 PM ACCOUNT DEVELOPER Office Visit [facility] [address] [phone] Miriam Melton, EXHIBIT CARPENTER CAN BANDER OPERATOR [address] [place] [phone] documented as of this encounter Visit Diagnoses Not on filedocumented in this encounter Additional Health Concerns Assessment Noted Time PHQ-9 Depression Total Score: 2 05/07/20 21 11:37 AM CDT documented as of this encounter Care Teams Charging Operator Relationship Specialty Start Date End Date Herson Rhodes MD PCP - General 06/02/11 [facility] [address] [place] [address] Assigned PCP 12/14/[address] [place] [address] Registered Dietitian Dietitian, Registered 06/09/24 Dung Alva, PhD [facility] [address] [place] [address] Assigned Behavioral Health Provider 06/14/24 Aris Thurman MD [address] [place] [address] Assigned Surgical Provider 07/15/24 Miriam Melton APRN [facility] [address] [address] Nurse Practitioner Surgery 07/19/24 documented as of this encounter
--- OUTSIDE RECORDS SUMMARY | 2024-09-02 08:26 | XMS_ITS | Encounter Summary ---
Author Organization [facility] Address [address] [place] [address]. [place] [address] Care Team Providers Care Unix Systems Administrator Name Role Phone Herson Rhodes MD Primary Care Provider [facility] Unavailabl e Hien Flood RD Unavailable [phone] Dung Alva PhD Unavailable Aris Thurman MD Unavailable Miriam Melton APRN ART DEPARTMENT HEAD Unavailable [phone] Encounter Details Date Type Department Care Team (Late st Contact Info) Description 08/10/[address] 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 Gender Identity Female 04/04/2021 10:28 PM CDT Sexual Orientation Straight 04/04/2021 10 :28 PM CDT documented as of this encounter Plan of Treatment Upcoming Encounters Date Type Department Care Team (Late st Contact Info) Description 09/08/2024 11:00 AM FARM MACHINE TENDER [facility] [address] 200 [place] [phone] Betty Leonardo, RD 2945 [facility] 200 [place] [address] 11/06/2024 9:30 AM CDT Virtual Visit [facility] Clinic [facility]ariatrics Care [address] 200 [place] [address] Dung Alva, PhD [facility] [employer] [address] [facility] 200 [place] [address] 11/07/2024 9:30 AM CDT Virtual Visit [facility] [address] 200 [place] [address] Hien Flood, RD 2945 [facility] 200 [place] [address] 02/08/2025 1:30 PM CDT Office Visit [facility]ariat[facility] Care [address] 200 [place] [address] Miriam Melton, TECHNICAL SERVICE ENGINEER ART DEPARTMENT HEAD [address] [place] [address] 200 [place] [address] 05/09/2025 9:30 AM CDT Virtual Visit [facility] [address] 200 [place] [address] [address] 08/09/2025 1:30 PM FARM MACHINE TENDER Office Visit [facility] Clinic and Bariatrics Care [place] [address] [place] [phone] Miriam Melton APRN ART DEPARTMENT HEAD [address] [place] [address] documented as of this encounter Visit Diagnoses Not on filedocumented in this encounter Additional Health Concerns Assessment Noted Time PHQ-9 Depression Total Score: 2 05/07/20 21 11:37 AM CDT documented as of this encounter Care Teams Unix Systems Administrator Relationship Specialty Start Date End Date Herson Rhodes MD PCP - General 06/02/11 [facility] - [facility] [address] [place] [address] Assigned PCP 12/14/[address] [place] [address] Registered Dietitian Dietitian, Registered 06/09/24 Dung Alva, PhD [facility] [employer] [address] [facility] 200 [place] [address] Assigned Behavioral Health Provider 06/14/24 Aris Thurman MD [address] [place] [address] Assigned Surgical Provider 07/15/24 Miriam Melton APRN ART DEPARTMENT HEAD [address] [phone] Nurse Practitioner Surgery 07/19/24 documented as of this encounter
--- OUTSIDE RECORDS SUMMARY | 2024-09-02 08:26 | XMS_ITS | Patient Health Record ---
Author Organization [facility] Address [address] [place] [address] Care Team Providers Care Otr Tanker Truck Driver Name Role Phone None, No PCP Primary Care Provider Adenike Spain Unavailable [phone] Valeria Mario Unavailable [phone] Allergies Allergen (clinical drug ingredient) Drug/Non Drug Allergy documented on EMR Reaction Allergy Type Onset Date Status promethazine Phenergan Unknown Drug Allergy Acti ve Compazine Unknown Drug Allergy Active Results Component Value Reference Range Notes THINPREP TIS AND HPV mRNA E6 /E7 (30 yrs and over) Reviewed date:06/22/2024 02:51:29 PM Interpretation: Performing Lab:[place], [facility] Herb Mckee Notes/Report: CLINICAL INFORMATION: None g iven LMP: NONE GIVEN PREV. PAP: 02/10/2023 PREV. BX: NONE GIVEN SOURCE: Cervix, Endocer vix STATEMENT OF ADEQUACY: Satisfactory for evaluation. Endocervical/transformation zone component absent. Age and/or menstrual status not provided INTERPRETATION/RESULT: Cytology Results: Negative for intraepithelial lesion or malignancy. COMMENT: This Pap test has been evaluated with computer assisted technology. LAND SURVEYOR ASSISTANT: RENÉ HEARN(ASCP) CT Screening location: [address] [address] COMMENT EXPLANATORY NOTE: The Pap is a [...] mRNA E6/E7 Not Detected Not Detected Methodology: Toppiece Chopper-Mediated Amplification This assay detects E6/E7 viral messenger RNA (mRNA) from 14 high-risk HPV types (16,18,31,33,35,39,45,51,52,5 6,58,59,66,68). Cervical sources are required for HPV testing. If a vaginal source from a patient who has had a total hysterectomy with removal of cervix was submitted, please contact the testing laboratory for alternative testing options. For additional information, please refer to http://[email or web address].PWA/faq/[email or web address] (This link if provided for information/ educational purposes only.) Sensitive Estradiol (IH) Reviewed date:11/08/2023 11:45:38 AM Interpretation: Performing Lab: Notes/Report: Access 2 ([id number]), Access 2 Rel[facility] (IH) Reviewed date:11/08/2023 11:46:50 AM Interpretation: Performing Lab: Notes/Report: Access 2 ([id number]), Access 2 Rel[facility]link Reason For Referral No [...] Status Risk Notes Problem Adult health examination (894343035) Annual visit for general adult medical examination without abnormal findings (Z00.00) Active confirmed Problem Menopause (043932021) Menopause (Z78.0) Active confirmed Problem 105629168 Obesity, morbid, BMI 50 or higher (E66.01) Active confirmed Problem Menopausal and postmenopausal disorder (N95.9) Active confirmed Problem 197049046 Obesity, Class III, BMI 40-49.9 (morbid obesity) (E66.01) Active confirmed Problem 978334786 S/P laparoscopic hysterectomy (Z90.710) Active confirmed Problem 127482915 Surgical menopause, asymptomatic (E89.40) Active confirmed Vital Signs Blood pressure diastolic 80 mm Hg 07/27/2024 Height 64.50 in 07/27/2024 Blood pressure systolic 126 mm Hg 07/27/2024 Weight 298.0 lbs 07/27/2024 BMI 50.36 kg/m2 07/27/2024 Encounters Encounter Location Date Provider Diagnosis [address] [address] 10/28/2023 Adenike Hatfield Surgical menopause, asymptomatic E89.40 and Hormone replacement therapy (HRT) Z79.[address] [address] 10/28/2023 Adenike Hatfield Menopausal and postmenopausal disorder N95.[address] [address] 01/27/2024 Adenike Hatfield Hormone replacement therapy (HRT) Z79.890 ; S/P laparoscopic hysterectomy Z90.710 and Obesity, Class III, BMI 40-49.9 (morbid obesity) E66.[address] [address] 06/19/2024 Valeria Mccann Cervical cancer screening Z12.[address] [address] 06/19/2024 Valeria Mccann Encounter for well woman exam Z01.419 and Encounter for screening for human papillomavirus (HPV) Z11.[address] [address] 07/27/2024 Adenike Hatfield Hormone replacement therapy (HRT) Z79.890 ; Obesity, morbid, BMI 50 or higher E66.01 and Prediabetes R73.03 [facility] [address] [place] [address] 01/19/2024 Adenike Hatfield [facility] [address] [phone] 03/29/2024 Adenike Hatfield [facility] [address] [place] [phone] 05/22/2024 Adenike Hatfield [facility] [address] [place] [address] 06/19/2024 Valeria Mccann Assessments Encounter Date Diagnosis [...] in three months at her clinic in [place] and follow-up. All of her questions were [...] her chart, we requested them from her [place] clinic at her last visit. She went [...] discussion of care with another health animal care supervisor if indicated - direct face to face [...] discussion of care with another health animal care supervisor if indicated - direct face to face [...] discussion of care with another health animal care supervisor if indicated - direct face to face [...] Provider Name:Adenike Tolentino meghan, 10/31/2024 10:15:00 AM, [address] [place], [address], Provider Name:Adenike Tolentino meghan, 11/09/2024 10:00:00 AM, [address] [place], [address], Insurance Providers Payer Name Payer Address Payer Phone Subscriber Number Group Number Insured Name Patient Relationship to Insured Coverage Start Date Coverage End Date UMR (INS BILL) [address] [address] [place] [address] [id number] Sofia Iyer Self - patient is the insured Medical (General) History Medical History History ICD Code chronic pain endometriosis anxiety/depression hx of migraines hypertension ulcers Surgical History Surgery Date(Month/Year) spinal cord stimulator upper endoscopy total hysterectomy ovarian cysts removed D and C Hospitalization History Reason Date(Month/Year) psych 01/21/2023
--- OUTSIDE RECORDS SUMMARY | 2024-09-02 08:26 | XMS_ITS | Encounter Summary ---
Author Organization [facility] Address [address] [place] [address]. [place] [address] Care Team Providers Care Director Airport Name Role Phone Herson Rhodes MD Primary Care Provider [facility] Unavailabl e Hien Flood RD Unavailable [phone] Dung Alva PhD Unavailable [phone] Aris Thurman MD Unavailable Miriam Melton APRN PCA Unavailable [phone] Encounter Details Date Type Department Care Team (Late st Contact Info) Description 08/07/2024 9:20 AM HOSPITALITY JOB TITLES Ancillary Procedure [facility] Ultrasound [address] [place] [address] Timo Elam MD [employer] [address] [place] [address] Social History Tobacco Use Types Packs/Day Years [...] PM CDT Legal Sex Female 5:06 AM HOSPITALITY JOB TITLES Gender Identity Female 04/04/2021 10:28 PM CDT Sexual Orientation Straight 04/04/2021 10 :28 PM CDT documented as of this encounter Plan of Treatment Upcoming Encounters Date Type Department Care Team (Late st Contact Info) Description 09/08/2024 11:00 AM HOSPITALITY JOB TITLES Virtual Visit [facility] Clinic [facility] Bariatrics Care [address] [place] [address] Betty Leonardo, RD 2945 [facility] 200 [place] [address] 11/06/2024 9:30 AM CDT Virtual Visit [facility] [address] [address] Dung Alva, PhD [facility] [employer] [facility] [address] [place] [address] 11/07/2024 9:30 AM CDT Virtual Visit [facility] [address] [address] Hien Flood, RD 2945 [facility] 200 [place] [address] 02/08/2025 1:30 PM CDT Office Visit [facility]rics Care [address] [address] Miriam Melton APRN [address] [address] 05/09/2025 9:30 AM CDT Virtual Visit [facility] [address] [place] [phone] 2945 [facility] 200 [place], [place] [phone] 08/09/2025 1:30 PM HOSPITALITY JOB TITLES Office Visit [facility] [place] 2945 [facility] 200 [place] [phone] Miriam Melton, ENGINEER AUTOMATED EQUIPMENT PCA 2945 [facility] 200 [place], [place] [phone] documented as of this encounter Procedures Procedure Name Priority Date/Time Associated Diagnosis Comments POC US GUIDANCE NEEDLE PLACEMENT Routine 08/07/2024 9:18 AM HOSPITALITY JOB TITLES documented in this encounter Results * POC US Guidance Needle Placement (08/07/2024 9:18 AM HOSPITALITY JOB TITLES) Narrative [facility] - 08/07/2024 9:18 AM HOSPITALITY JOB TITLES Ultrasound was performed as guidance to an anesthesia procedure. Click PACS images hyperlink below to view any stored images. For specific procedure details, view procedure note authored by anesthesia. us Timo Elam MD IMG POCUS Final Resu lt [facility] documented in this encounter Visit Diagnoses Not on filedocumented in this encounter Additional Health Concerns Assessment Noted Time PHQ-9 Depression Total Score: 2 05/07/20 21 11:37 AM CDT documented as of this encounter Care Teams Director Airport Relationship Specialty Start Date End Date Herson Rhodes MD PCP - General 06/02/11 Clinic - [facility] [address] [place] [address] Assigned PCP 12/14/[address] [place] [address] Registered Dietitian Dietitian, Registered 06/09/24 Dung Alva, PhD [facility] [employer] [facility] [address] [facility] 200 [place] [address] Assigned Behavioral Health Provider 06/14/24 Aris Thurman MD [address] [place] [address] Assigned Surgical Provider 07/15/24 Miriam Melton APRN PCA [address] [place] [address] Nurse Practitioner Surgery 07/19/24 documented as of this encounter
--- OUTSIDE RECORDS SUMMARY | 2024-09-02 08:26 | XMS_ITS | Encounter Summary ---
Author Organization [place] Address [address] [place] [address]. [place] [address] Care Team Providers Care Home Lending Officer Name Role Phone Herson Rhodes MD Primary Care Provider [facility] Unavailabl e Hien Flood RD Unavailable [phone] Dung Alva PhD Unavailable Aris Thurman MD Unavailable Miriam Melton APRN ELEMENTARY SCHOOL READING TEACHER Unavailable [phone] Reason for Visit * Reason Onset Date Comments Post-op Phone Call 08/10/2024 Encounter Details Date Type Department Care Team (Late st Contact Info) Description 08/10/[address] 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 Date of Surgery: 08/07/2024 Discharge Date: 08/08/2024 Date/Time Called: Date: 08/10/2024 Time: 4:24 PM Attempt: First Pain Control: Intensity: Mild (1 - 3) Duration/Location/Explain: mostly incisional What makes it better/worse? Walking, ice packs, resting, abdominal binder and pain medications Medications: Narcotic Use - Yes Drug type: Tramadol Frequency: twice yesterday and twice today so far Non-prescription pain control: Tylenol Other medications currently taking: See medication list for details - medication list reviewed Complete Multivitamin + Iron BID? Yes Vitamin B12? sublingual daily Incisions: Drainage? clean and dry Comment: showered yesterday and removed bandages Intake/Output: Fluid Intake(oz/day)? 40+ oz Fluid type? Yogurt, protein shakes, water Heartburn? No Counseling: Call if reflux, or pain with eating and drinking start Nausea? No Vomiting? No BM? No Gas? Yes Voiding Frequency? 4 or more/day Are you using your incentive spirometer? If yes, how often? 3+/day Any fever type symptoms? No Walking activity? Yes Frequency/Type: walking In Preparation for Surgery: Is there anything you would have changed about your preparation for surgery from our clinic? If yes, what? No - it was good On a scale of 1-5, with 5 being the highest, how was the service while you were in the hospital? 5 Is/was there anyone in particular; nurse, aide, hospital staff, that did a great job and you would like us to recognize? If yes, whom. Nurse Stevie was awesome! Reminder of plan and expectations for follow-up visits given to the patient. Thank you for your time. Please do not hesitate to call us with any questions or concerns. Call completed by: Litzy S Feig, RN ERCIAL REAL ESTATE BROKER documented in this encounter Plan of Treatment Upcoming Encounters Date Type Department Care Team (Late st Contact Info) Description 09/08/2024 11:00 AM COMMERCIAL REAL ESTATE BROKER Virtual Visit [facility] Surgery Clinic and Bariatrics Care [address] 200 [place] [phone] Betty Leonardo, RD 2945 [facility] 200 [place] [address] 11/06/2024 9:30 AM CDT Virtual Visit [facility] Surgery Clinic and Bariatrics Care [address] [phone] Dung Alva, PhD [employer] [facility] [address] 200 [place] [address] 11/07/2024 9:30 AM CDT Virtual Visit [facility] Surgery [facility] and Bariatrics Care [address] [phone] Hien Flood, RD 2945 [facility] 200 [place] [address] 02/08/2025 1:30 PM CDT Office Visit [facility] Surgery Clinic and Bariatrics Care [address] [place] [address] Miriam Melton APRN [address] [address] 05/09/2025 9:30 AM CDT Virtual Visit [facility] Surgery Clinic and Bariatrics Care [address] 200 [place] [phone] [address] 08/09/2025 1:30 PM COMMERCIAL REAL ESTATE BROKER Office Visit [facility] Surgery Clinic and Bariatrics Care [place] [address] [phone] Miriam Melton, DEE ELEMENTARY SCHOOL READING TEACHER [address] [address] documented as of this encounter Visit Diagnoses Not on filedocumented in this encounter Additional Health Concerns Assessment Noted Time PHQ-9 Depression Total Score: 2 05/07/20 21 11:37 AM CDT documented as of this encounter Care Teams Home Lending Officer Relationship Specialty Start Date End Date Herson Rhodes MD PCP - General 06/02/11 Clinic - [facility] [address] [place] [address] Assigned PCP 12/14/[address] [place] [address] Registered Dietitian Dietitian, Registered 06/09/24 Dung Alva, PhD [employer] [facility] [address] [facility] 200 [place] [address] Assigned Behavioral Health Provider 06/14/24 Aris Thurman MD [address] [place] [address] Assigned Surgical Provider 07/15/24 Miriam Melton APRN ELEMENTARY SCHOOL READING TEACHER 2945 [facility] 200 [place], [place] [phone] Nurse Practitioner Surgery 07/19/24 documented as of this encounter
--- OUTSIDE RECORDS SUMMARY | 2024-09-02 08:26 | XMS_ITS | Continuity of Care Document ---
Author Name [facility] User [facility] Address Unknown Organization Unknown Address Unknown Procedures FILTER APPLIED:Only known Procedures with Onset Date within the last 5 years Procedure Date Procedure Provider Additiona l Information Status NH REMOVAL STOMACH,SRIDHAR-EN-Y (36583) Completed NH REMV STOMACH,PART,DISTAL,ROU X-EN-Y (24480) Completed NH LAPAROSCOPIC GASTRIC RESTRICTIVE PX, W/GASTRIC BYPASS/ SRIDHAR-EN-Y, < 150CM (95765) Completed ZZC GASTRIC BYPASS,OBESE<100CM SRIDHAR-EN-Y (21815) Completed COMPLETE CBC W/AUTO DIFF WBC (42967) Completed FREE ASSAY (FT-3) (76299) Completed ASSAY THYROID STIM HORMONE (27340) Completed ASSAY OF FREE THYROXINE (24482) Completed HEMOGLOBIN GLYCOSYLATED A1C (33099) Completed LIPID PANEL (03765) Comp leted COMPREHEN METABOLIC PANEL (93590) Completed PT EVAL LOW COMPLEX 20 MIN (14498) Completed THERAPEUTIC EXERCISES (47067) Completed DX MAMMO INCL CAD UNI (99752) Completed ULTRASOUND BREAST LIMITED (68325) Completed ECHO GUIDE FOR BIOPSY (92329) Completed X-RAY EXAM OF FOOT (88257) Completed ANESTH LOWER LEG BONE SURG (92046) Completed OPEN TREATMENT OF METATARSAL FRACTURE, INCLUDES INTERNAL FIXATION, WHEN PERFORMED, EACH (71099) Complete d Encounters FILTER APPLIED:Only known Encounters with Admission Date within the last 5 years Encounter Location Admission Discharge Billing Code Mucking Machine Operator A ttender Outpatient Ivan on Camilo Outpatient Josef Shah Outpatient Fatuma Guevara Outpatient Ramses Lehman Outpatient [facility] Outpatient [facility] Outpatient [facility] Outpatient [facility] Outpatient [facility] Outpatient [facility] Out[facility] Out[facility] Out[facility] Outpatient [facility] Inpatient [facility] Outpatient [facility] Outpatient [facility] Outpatient [facility]
--- OUTSIDE RECORDS SUMMARY | 2024-09-02 08:26 | XMS_ITS | Clinical Summary ---
Author Organization [employer] [facility] Address [place], [place] [address] Care Team Providers Care Lehr Attendant Name Role Phone Herson Rhodes MD Primary [...] on file Legal Sex Female 5:41 AM COMPOSITION MIXER Gender Identity Not on file Sexual Orientation [...] Tdap Completed 06/04/2008 Pneumococcal series for age 6-49 Aged Out No longer eligible based on patient's age to complete this topic Goals Goal Patient Goal Type Associated Problems Recent Progress Patient-Stated? Author BLOOD PRESSURE - MAINTAINS BP less than 140/90 Blood Pressure No Herson Rhodes MD Medical Devices Implanted Type Area Front Desk Agent Device Identifier Shelf Expiration Date Model / Serial / Lot Stimulator Spinal Primeadvanedsurescan Mri - [id number] Implanted:Qty: 1 on 12/02/2017 by Herson Lala MD at [facility] Left: Flank Medtronic Pain Therapy 12/18/2018 [id number]# / [id number] / Stimulator Spinal Intellis Mri - [id number] Implanted:Qty: 1 on 06/19/2020 by Herson Lala MD at [facility] Left: Flank Medtronic Pain Therapy 04/19/2021 [id number]# / / [id number] 1H Envkey Neuro Tyrx Absorb Antibacterial - [id number] Implanted:Qty: 1 on 06/19/2020 by Herson Lala MD at [facility] Left: Flank Medtronic 01/10/2021 [id number] # / / [id number] Explanted Type Area Front Desk Agent Device Identifier Shelf Expiration Date Model / Serial / Lot [id number] - [id number] Explanted:Qty: 1 on 12/02/2017 at [facility] Left: Flank Medtronic [id number] / [id number] / Description:Spinal cord gene rator battery Procedures Procedure Name Priority Date/Time Associated Diagnosis Comments ANTI HCV Timed 08/21/2004 9:55 AM COMPOSITION MIXER from Last 3 Months or Most Recently Relevant to Health Maintenance Results * ANTI HCV (08/21/2004 9:55 AM COMPOSITION MIXER) ANTI HCV Non-reactiv e [facility] 08/21/2004 9:55 AM COMPOSITION MIXER 08/21/2004 7:46 PM COMPOSITION MIXER Narrative [facility] - 08/26/2004 1:39 PM COMPOSITION MIXER Testing Performed By [place], [place] Radha Huff CATASTROPHE CLAIMS SUPERVISOR SEND OUTS Final Result [facility] [address] [place] [address] from Last 3 Months or Most Recently [...] 7:00 AM 07/21/2009 2:26 AM Care Teams Lehr Attendant Relationship Specialty Start Date End Date Herson Rhodes MD [address] [place] [address] PCP - General Family Practice 06/10/20
--- OUTSIDE RECORDS SUMMARY | 2024-09-02 08:26 | XMS_ITS | Encounter Summary ---
Author Organization [facility] Address [address] [place] [address]. [place] [address] Care Team Providers Care Group Captain Name Role Phone Herson Rhodes MD Primary Care Provider [facility] Unavailabl e Hien Flood RD Unavailable [phone] Dung Alva PhD Unavailable [phone] Aris Thurman MD Unavailable [phone] Miriam Melton APRN SUPERVISOR [employer] Unavailable [phone] Reason for Visit * Reason Comments Post-Op - General Surgery Encounter Details Date Type Department Care Team (Late st Contact Info) Description 08/30/2024 12:30 PM DRAW MACHINE OPERATOR Virtual Visit [facility] Surgery Clinic and Bariatrics Care [address] [phone] Aris Thurman MD [address] [place] [id number] S/P gastric bypass (Primary Dx) Social History Tobacco Use Types [...] PM CDT Legal Sex Female 5:06 AM DRAW MACHINE OPERATOR Gender Identity Female 04/04/2021 10:28 PM CDT Sexual Orientation Straight 04/04/2021 10 :28 PM CDT documented as of this encounter Last Filed Vital Signs Vital Sign Reading Time Taken Comments Blood Pressure - - Pulse - - Temperature - - Respiratory Rate - - Oxygen Saturation - - Inhaled Oxygen Concentration - - Weight 123.4 kg (272 lb) 08/30/2024 12:25 PM DRAW MACHINE OPERATOR Height 165.1 cm (5' 5) 08/30/2024 12:25 PM DRAW MACHINE OPERATOR Body Mass Index 45.26 08/30/2024 12:25 PM DRAW MACHINE OPERATOR documented in this encounter Progress Notes * Aris Thurman MD - 08/30/2024 12:30 PM CST Sofia Iyer is 43 year old female who presents for a billable video visit today. How would you like to obtain your AVS? MyChart If dropped from the video visit, the video invitation should be resent by: Text to cell phone: [phone] Will anyone else be joining your video visit? No Video Start Time: 12:40 Provider Notes: HPI: Pt is here for follow up of a Laparoscopic Nancy-en-Y Gastric Bypass on 08/07/2024. Currently she is doing well. Taking po well with her soft food diet but she is only drinking about 30 of water a day. No vomiting. No fevers or chills. Ambulating without problems. Ht 1.651 m (5' 5) Wt 123.4 kg (272 lb) LMP 06/11/2015 BMI 45.26 kg/m?? . Wt Day of Surgery: 287 lbs Down 15 lbs EXAM: GENERAL:Appears well ABDOMEN: Incisions healing well Assessment/Plan: Pt s/p Laparoscopic Nancy-en-Y Gastric Bypass. Doing well. Diet and activity discussed. I encouraged an increase in her Water intake. She will f/u with us at the Bariatric Center in 3months. Aris Thurman MD ,MD [facility] Department of Surgery Video-Visit Details Type of service: Video Visit Platform used for Video Visit: [employer] Video End Time (time video stopped): 1:03 PM Originating Location (pt. Location): Home Distant Location (provider location): [facility] SUR[facility]ERY CL[facility] AND BARIATRICS C[facility] [place] MACHINE OPERATOR documented in this encounter Plan of Treatment Upcoming Encounters Date Type Department Care Team (Late st Contact Info) Description 09/08/2024 11:00 AM DRAW MACHINE OPERATOR Virtual Visit [facility] Surgery Clinic and Bariatrics Care [address] 200 [place] [phone] Betty Leonardo, RD 2945 [facility] 200 [place] [address] 11/06/2024 9:30 AM CDT Virtual Visit [facility] Surgery [facility] and Bariatrics [address] [phone] Dung Alva, PhD [employer] [address] [address] 11/07/2024 9:30 AM CDT Virtual Visit [facility] Surgery [facility] and Bariatrics Care [address] [phone] Hien Flood, RD [facility] [address] 02/08/2025 1:30 PM CDT Office Visit [facility] Surgery [facility] and Bariatrics Care [address] [phone] Miriam Melton APRN SUPERVISOR [employer] [address] [place] [address] 05/09/2025 9:30 AM CDT Virtual Visit [facility] Surgery Clinic and Bariatrics Care [place] [address] [place] [address] 200 [place] [phone] 2945 [facility] 200 [place] [address] 08/09/2025 1:30 PM DRAW MACHINE OPERATOR Office Visit [facility] Surgery Clinic and Bariatrics Care [place] [address] [place] [address] 200 [place] [phone] Miriam Melton APRN SUPERVISOR [employer] [address] [phone] documented as of this encounter Visit Diagnoses Diagnosis S/P gastric bypass- Primary Bariatric surgery status documented in this encounter Additional Health Concerns Assessment Noted Time PHQ-9 Depression Total Score: 2 05/07/20 21 11:37 AM CDT documented as of this encounter Care Teams Group Captain Relationship Specialty Start Date End Date Herson Rhodes MD PCP - General 06/02/11 [facility] [address] [place] [address] Assigned PCP 12/14/[address] 2945 [facility] 200 [place] [address] Registered Dietitian Dietitian, Registered 06/09/24 Dung Alva, PhD [employer] [address] [facility] 200 [place] [address] Assigned Behavioral Health Provider 06/14/24 Aris Thurman MD 2945 [facility] 200 [place] [address] Assigned Surgical Provider 07/15/24 Miriam Melton APRN [facility] 2945 [facility] 200 [place] [address] Nurse Practitioner Surgery 07/19/24 documented as of this encounter
--- OUTSIDE RECORDS SUMMARY | 2024-09-02 08:26 | XMS_ITS | Encounter Summary ---
Author Organization [facility] Address [address] [place] [address]. [place] [address] Care Team Providers Care Color Television Console Monitor Name Role Phone Herson Rhodes MD Primary Care Provider [facility] Unavailabl e Hien Flood RD Unavailable Dung Alva PhD Unavailable [phone] Aris Thurman MD Unavailable Miriam Melton APRN GARMENT LINER Unavailable [phone] Encounter Details Date Type Department Care Team (Late st Contact Info) Description 08/07/2024 MyC Medical Advice [facility] Surgery Clinic and Bariatrics Care [place] [address] [place] [address] 200 [place] [phone] Hien Flood, ZEINAB 2945 [facility] 200 [place] [address] Social History Tobacco Use Types Packs/Day Years [...] PM CDT Legal Sex Female 5:06 AM CLIENT SERVICE ASSOCIATE Gender Identity Female 04/04/2021 10:28 PM CDT Sexual Orientation Straight 04/04/2021 10 :28 PM CDT documented as of this encounter Plan of Treatment Upcoming Encounters Date Type Department Care Team (Late st Contact Info) Description 09/08/2024 11:00 AM CLIENT SERVICE ASSOCIATE Virtual Visit [facility] Surgery Clinic and Bariatrics Care [address] 200 [place] [address] Betty Leonardo, RD 2945 [facility] 200 [place] [address] 11/06/2024 9:30 AM CDT Virtual Visit [facility] Surgery Clinic and Bariatrics Care [address] 200 [place] [address] Dung Alva, PhD RONNA AND [facility] [address] [facility] 200 [place] [address] 11/07/2024 9:30 AM CDT Virtual Visit [facility] Surgery Clinic and Bariatrics Care [address] 200 [place] [address] Hien Flood, RD 2945 [facility] 200 [place] [address] 02/08/2025 1:30 PM CDT Office Visit [facility] Surgery Clinic and Bariatrics Care [address] 200 [place] [address] Miriam Melton, DEE GARMENT LINER 2945 [facility] 200 [place] [address] 05/09/2025 9:30 AM CDT Virtual Visit [facility] Surgery Clinic and Bariatrics Care [address] [phone] [place] [address] 08/09/2025 1:30 PM CLIENT SERVICE ASSOCIATE Office Visit [facility] Surgery Clinic and Bariatrics Care [address] [phone] Miriam Melton, ELECTROTYPE FINISHER GARMENT LINER [address] [place] [phone] documented as of this encounter Visit Diagnoses Not on filedocumented in this encounter Additional Health Concerns Assessment Noted Time PHQ-9 Depression Total Score: 2 05/07/20 21 11:37 AM CDT documented as of this encounter Care Teams Color Television Console Monitor Relationship Specialty Start Date End Date Herson Rhodes MD PCP - General 06/02/11 [facility] [address] [place] [address] Assigned PCP 12/14/[address] [place] [address] Registered Dietitian Dietitian, Registered 06/09/24 Dung Alva, PhD RONNA AND ASSOC [facility] [address] [place] [address] Assigned Behavioral Health Provider 06/14/24 Aris Thurman MD [address] [place] [address] Assigned Surgical Provider 07/15/24 Miriam Melton APRN [facility] [address] Nurse Practitioner Surgery 07/19/24 documented as of this encounter
--- OUTSIDE RECORDS SUMMARY | 2024-09-02 08:26 | XMS_ITS | Clinical Summary ---
Author Organization [facility] Address [address] [place] [address]. [place] [address] Care Team Providers Care Refinery Operator Helper Crude Unit Name Role Phone Herson Rhodes MD Primary Care Provider [facility] Unavailabl e Hien Flood RD Unavailable Dung Alva PhD Unavailable Aris Thurman MD Unavailable Miriam Melton APRN CALL TAKER Unavailable [phone] Allergies Active Allergy Reactions Criticality Noted Date [...] Active fluticasone (FLONASE) 50 MCG/ACT nasal spray Arnold 2 sprays into both nostrils daily as [...] Start right after surgery. 90 tablet 3 Active Pediatric Multivitamins- Iron (MULTIVITAMINS PLUS IRON CHILD) 18 MG CHEWIndication s:Morbid obesity (H),S/P bariatric surgery,Intest inal malabsorption, unspecified type Take 1 chew tab by mouth 2 times daily. Ok to substitute with any chewable that contains 18 mg of iron, Vitamin A, Thiamine and Zinc. 180 tablet 3 Active ursodiol (ACTIGALL) 300 MG capsuleIndicat ions:Morbid [...] start taking after surgery until advised by filer metal patterns in post-op class. Active estradiol (CLIMARA) 0.05 [...] start taking after surgery until advised by filer metal patterns in post-op class. Active DULoxetine (CYMBALTA) 30 [...] mg) subcutaneously every 7 days. 2 mL 024 2023 Discontinued(S top at Discharge) vitamin D3 [...] 12/19/15 total hysterectomy including cervix. Benign pathology 2017 NIL vaginal pap 09/20/17 NIL/Neg HPV of [...] Department Care Team Description 08/30/2024 12:30 PM LOG DATA TECHNICIAN Virtual Visit [facility] [address] [phone] Aris Thurman MD S/P gastric bypass (Primary Dx) 08/14/2024 1:00 PM LOG DATA TECHNICIAN Virtual Visit [facility] [address] [phone] Bariatric surgery status (Primary Dx) 08/14/2024 MyC Medical Advice [facility] [address] [phone] 08/10/2024 MyC Medical Advice [facility] [address] [phone] Litzy Hall RN 08/10/2024 Telephone [facility] [address] [phone] Litzy Hall RN Post-op Phone Call 08/07/2024 10:51 AM LOG DATA TECHNICIAN Anesthesia Event [address] [place] [phone] Aubrey Gutierrez MD Anderson, Raleigh F, MD 08/07/2024 10:09 AM LOG DATA TECHNICIAN - 08/07/2024 12:59 PM LOG DATA TECHNICIAN Surgery [address] [phone] Aris Thurman MD CREATION, GASTRIC BYPASS, SRIDHAR-EN-Y, LAPAROSCOPIC 08/07/2024 9:20 AM LOG DATA TECHNICIAN Ancillary Procedure [facility] Ultrasound [address] [place] [phone] Timo Elam MD 08/07/2024 8:47 AM LOG DATA TECHNICIAN - 08/08/2024 3:24 PM LOG DATA TECHNICIAN Hospital Encounter [facility] [address] [place] [phone] Airs Thurman MD Morbid (severe) obesity due to excess calories (H) (Primary Dx); S/P gastric bypass Discharge Disposition: Home or Self Care 08/07/2024 MyC Medical Advice [facility] [address] [phone] Hien Flood, ZEINAB 07/19/2024 12:30 PM LOG DATA TECHNICIAN Allied Health/Nurse Visit [facility] [address] [phone] Bariatric (Pre-op Class/); Pt Ed 07/19/2024 Travel 07/18/2024 Travel 07/18/2024 MyC Medical Advice [facility] [address] [phone] Esau [place] 07/17/2024 MyC Medical Advice [facility] [address] [place] [phone] Litzy Hall RN 07/17/2024 MyC Medical Advice [facility] [address] [place] [phone] Radha Brown 07/17/2024 Documentation Only [facility] [address] [place] [phone] [facility] Documentation Only [facility] [address] [place] [phone] [facility] 07/05/2024 1:30 PM LOG DATA TECHNICIAN Office Visit [facility] [address] [phone] Aris Thurman MD Morbid obesity with BMI of 45.0-49.9, adult (H) (Primary Dx); BLAISE (obstructive sleep apnea); Morbid obesity (H); Duodenal stricture 07/05/2024 Travel 07/04/2024 Travel 06/29/2024 11:00 AM LOG DATA TECHNICIAN Lab [facility] [address] [place] [phone] History of tobacco use 06/29/2024 Travel 06/28/2024 9:30 AM LOG DATA TECHNICIAN Virtual Visit [facility] [address] [phone] Dung Alva, PhD Morbid obesity (H) (Primary Dx) 06/28/2024 MyC Medical Advice [facility] [address] [phone] Litzy Hall RN prep for surgery 06/27/2024 MyC Medical Advice [facility] [address] [phone] Litzy Hall RN Morbid obesity with BMI of 45.0-49.9, adult (H) (Primary Dx); Pre-diabetes 06/26/2024 2:30 PM LOG DATA TECHNICIAN Virtual Visit [facility] [address] [place] [phone] Hien Flood, ZEINAB Morbid obesity with BMI of 45.0-49.9, adult (H) (Primary Dx); Pre-bariatric surgery nutrition evaluation 06/14/2024 MyC Medical Advice Initial Department [facility] 06/14/2024 MyC Medical Advice Initial Department [facility] 06/12/2024 9:00 AM CDT Virtual Visit [facility] [address] [place] [phone] Dung Alva, PhD Morbid obesity (H) (Primary Dx) 06/09/2024 10:00 AM CDT Virtual Visit [facility] [address] [place] [phone] Morbid obesity with BMI of 45.0-49.9, adult (H) (Primary Dx); Pre-bariatric surgery nutrition evaluation 06/05/2024 11:00 AM CDT Virtual Visit [facility] [address] [phone] 1, Sh Wl Diet, RD Obesity (Primary Dx) 06/02/2024 Travel 06/02/2024 Telephone [facility] [address] [place] [phone] Radha Brown from Last 3 Months Immunizations Name Administration [...] PM CDT Legal Sex Female 5:06 AM LOG DATA TECHNICIAN Gender Identity Female 04/04/2021 10:28 PM CDT Sexual Orientation Straight 04/04/2021 10 :28 PM CDT Last Filed Vital Signs Vital Sign Reading Time Taken Comments Blood Pressure 105/56 08/08/2024 7:44 AM LOG DATA TECHNICIAN Pulse 58 08/08/2024 7:44 AM LOG DATA TECHNICIAN Temperature 36.4 C (97.5 F) 08/08/2024 7:44 AM LOG DATA TECHNICIAN Respiratory Rate 19 08/08/2024 7:44 AM LOG DATA TECHNICIAN Oxygen Saturation 96% 08/08/2024 7:44 AM LOG DATA TECHNICIAN Inhaled Oxygen Concentration - - Weight 123.4 kg (272 lb) 08/30/2024 12:25 PM LOG DATA TECHNICIAN Height 165.1 cm (5' 5) 08/30/2024 12:25 PM LOG DATA TECHNICIAN Body Mass Index 45.26 08/30/2024 12:25 PM LOG DATA TECHNICIAN Plan of Treatment Upcoming Encounters Date Type Department Care Team (Late st Contact Info) Description 09/08/2024 11:00 AM LOG DATA TECHNICIAN Virtual Visit [facility] [address] [place] [phone] Betty Leonardo, RD [address] [facility] 200 [place] [address] 11/06/2024 9:30 AM CDT Virtual Visit [facility] [address] [place] [phone] Dung Alva, PhD [employer] [facility] [address] [facility] 200 [facility] [address] 11/07/2024 9:30 AM CDT Virtual Visit [facility] [address] [place] [phone] Hien Flood, RD [address]45 [facility] 200 [place] [address] 02/08/2025 1:30 PM CDT Office Visit [facility] [address] [place] [phone] Miriam Melton, NIGHT CLERK AUDITOR CALL TAKER [address] [place] [address] [address] [place] [address] 05/09/2025 9:30 AM CDT Virtual Visit [facility] [place] [address] [facility] 200 [place] [phone] Hien Flood, RD [address]45 [facility] [address] [place] [address] 08/09/2025 1:30 PM LOG DATA TECHNICIAN Office Visit [facility] [place] [address] [facility] 200 [place] [phone] Miriam Melton, NIGHT CLERK AUDITOR CALL TAKER [address] [facility] 200 [place] [address] Health Maintenance Due Date Last Done Comments ADVANCE CARE PLANNING 1980 ANNUAL REVIEW OF HM ORDERS 1980 URINE DRUG SCREEN 1980 Pneumococcal Vaccine: Pediatrics (0 to 5 Years) and At-Risk Patients (6 to 49 Years) (1 of 2 - PCV) 1999 YEARLY PREVENTIVE VISIT 05/07/2022 05/07/20 21, 03/04/2020, 09/26/2018, Additional history exists COVID-19 Vaccine ( season) 2024 04/30/2022, 06/12/2021, 10/03/2020, Additional history exists INFLUENZA VACCINE (#1) 2024 , 07/03/2022, 07/10/2021, Additional history exists HPV TEST 05/07/2024 05/07/2021, 02/20, 09/26/2018, Additional history exists PAP 05/07/2024 05/07/2021, 02/20, 09/26/2018, Additional history exists MAMMO SCREENING 05/02/2026 05/02/2024, 04/24, 04/23/2023, Additional history exists GLUCOSE 08/07/2027 08/07/2024, 04/24, 12/20/2015 DTAP/TDAP/TD IMMUNIZATION (5 - Td or Tdap) 04/07/2029 04/07/2019, 06/04/2008, 06/04/2008, Additional history exists LIPID 05/18/2029 05/18/2024 RSV VACCINE (1 - 1-dose 75+ series) 2055 HEPATITIS B IMMUNIZATION Completed 002, 05/17/2000, 04/16/2000 HEPATITIS C SCREENING Completed 01/28/2010, 004 HIV SCREENING Completed 01/28/2010 PHQ-2 (once per calendar year) Completed 08/30/2024, 05/09/2024, 02/18/2023, Additional history exists HPV IMMUNIZATION Aged Out No longer e ligible based on patient's age to complete this topic MENINGITIS IMMUNIZATION Aged Out No l onger eligible based on patient's age to complete this topic RSV MONOCLONAL ANTIBODY Aged Out No l onger eligible based on patient's age to complete this topic Medical Devices Implanted Type Area Clinical Data Analyst Device Identifier Shelf Expiration Date Model / Serial / Lot Primeadvanced Surescan Mri Neurostimulator Implanted:Qty: 1 on 02/14/2014 by Aj Perkins MD at [facility] Left: Buttocks [employer] 03/19/2015 [id number] / [id number] / Explanted Type Area Clinical Data Analyst Device Identifier Shelf Expiration Date Model / Serial / Lot Prime Advanced Neurostimulator Implanted:Qty: 1 on 03/16/[address] [facility] Explanted:Qty: 1 on 02/14/2014 by Aj Perkins MD at [facility] Left: Buttocks [employer] 03/05/2012 [id number] / [id number] / Description:[facility] advanced ulti program Neurostimulator [employer] Procedures Procedure Name Priority Date/Time Associated Diagnosis Comments EXTRA PURPLE TOP EDTA (LAB USE ONLY) Routine 08/08/2024 6:23 AM LOG DATA TECHNICIAN CREATININE Routine 08/08/2024 6:23 AM LOG DATA TECHNICIAN CREATININE Routine 08/07/2024 4:10 PM LOG DATA TECHNICIAN PLATELET COUNT Routine 08/07/2024 4:10 PM LOG DATA TECHNICIAN ANE AIRWAY ETT PERFORMABLE Routine 08/07/2024 10:54 AM LOG DATA TECHNICIAN CREATION, GASTRIC BYPASS, SRIDHAR-EN-Y, LAPAROSCOPIC 08/07/2024 10:48 AM LOG DATA TECHNICIAN Morbid obesity (H) Duodenal stricture Special Needs BMI 49.09Staff assist ANE SPINAL BLOCK FORM Routine 08/07/2024 10:24 AM LOG DATA TECHNICIAN POC US GUIDANCE NEEDLE PLACEMENT Routine 08/07/2024 9:18 AM LOG DATA TECHNICIAN GLUCOSE BY METER Routine 08/07/2024 9:02 AM LOG DATA TECHNICIAN LAB RESULT - HIM SCAN 07/31/2024 12:00 AM LOG DATA TECHNICIAN EKG CARDIAC - HIM SCAN 07/31/2024 12:00 AM LOG DATA TECHNICIAN XRAY IMAGING - HIM SCAN 07/31/2024 12:00 AM LOG DATA TECHNICIAN NICOTINE AND METS, URN, QUANT Routine 06/29/2024 10:50 AM LOG DATA TECHNICIAN History of tobacco use LIPID PROFILE Routine [...] EDTA (LAB USE ONLY) (08/08/2024 6:23 AM LOG DATA TECHNICIAN) Hold Specimen JIC 08/08/2024 7:46 AM LOG DATA TECHNICIAN [facility] Blood STRUCTURE OF RIGHT UPPER LIMB / Unknown Venipuncture / Unknown 08/08/2024 6:23 AM LOG DATA TECHNICIAN 08/08/2024 6:45 AM LOG DATA TECHNICIAN Aris Thurman MD LAB - BLOOD ORDERABLES Final Result [facility] [address] [place] [address], [facility] * Creatinine (08/08/2024 6:23 AM LOG DATA TECHNICIAN) Only the most recent of2 resultswithin the time period is included. Creatinine 0.92 0.51 - 0.95 mg/dL 08/08/2024 7:04 AM LOG DATA TECHNICIAN [facility] GFR Estimate 79 >60 mL/min/1.7 3m2 08/08/2024 7:04 AM LOG DATA TECHNICIAN [facility] Comment:eGFR calculated usin 2020 CKD-EPI equation. Blood STRUCTURE OF RIGHT UPPER LIMB / Unknown Venipuncture / Unknown 08/08/2024 6:23 AM LOG DATA TECHNICIAN 08/08/2024 6:45 AM LOG DATA TECHNICIAN Miriam Melton APRN CALL TAKER LAB - BLOOD ORDERABL ES Final Result Performing Organization Address City/[facility]/ZIP Co de Phone Number [facility] [address] [place] [address], [facility] * Platelet count (08/07/2024 4:10 PM LOG DATA TECHNICIAN) Platelet Count 314 150 - 450 10e3/uL 08/07/2024 4:31 PM LOG DATA TECHNICIAN [facility] Blood STRUCTURE OF RIGHT UPPER LIMB / Unknown Venipuncture / Unknown 08/07/2024 4:10 PM LOG DATA TECHNICIAN 08/07/2024 4:24 PM LOG DATA TECHNICIAN Aris Thurman MD LAB - BLOOD ORDERABLES Final Result [facility] [address] [place] [id number], [facility] * ANE AIRWAY ETT PERFORMABLE (08/07/2024 10:54 AM LOG DATA TECHNICIAN) Lazarus Butler APRN CRNA - 08/07/2024 10:54 AM LOG DATA TECHNICIAN Lazarus Mendez APRN CRNA 08/07/2024 11:10 AM Airway Patient location during procedure: OR Procedure Start/Stop Times: 08/07/2024 10:54 AM Staff - PROPAGATION MANAGER: Lazarus Mendez APRN CRNA Performed By: PROPAGATION MANAGER Consent for Airway Urgency: elective Indications [...] 08/07/2024 10:54 AM us Aubrey Gutierrez MD NM ANESTHESIA Final Resul t * Spinal Block (08/07/2024 10:24 AM LOG DATA TECHNICIAN) Narrative Aubrey Gutierrez MD - 08/07/2024 10:24 AM LOG DATA TECHNICIAN Aubrey Gutierrez MD 08/07/2024 10:25 AM Intrathecal [...] Medication Administration Time: 08/07/2024 10:24 AM FOR [facility] ([facility]: Pain Team Contact information: please page the Pain Team Via Next audience. Search Pain. During daytime hours, please page the attending first. At night please page the resident first. us Aubrey Gutierrez MD NM ANESTHESIA Final Resul t * POC US Guidance Needle Placement (08/07/2024 9:18 AM LOG DATA TECHNICIAN) Narrative [facility] - 08/07/2024 9:18 AM LOG DATA TECHNICIAN Ultrasound was performed as guidance to an anesthesia procedure. Click PACS images hyperlink below to view any stored images. For specific procedure details, view procedure note authored by anesthesia. us Timo Elam MD IMG POCUS Final Resu lt [facility] * (ABNORMAL) Glucose by meter (08/07/2024 9:02 AM LOG DATA TECHNICIAN) [facility] Signature GLUCOSE BY METER POCT 112(H) 70 - 99 mg/dL 08/07/2024 9:09 AM LOG DATA TECHNICIAN [facility] POCT RESULTS Blood, Capillary BLOOD SPECIMEN / Unknown 08/07/2024 9:02 AM LOG DATA TECHNICIAN 08/07/2024 9:09 AM LOG DATA TECHNICIAN us Aris JENNINGS - VALENTIN POCT Final Result Performing Organization Address [facility]/ZIP Co de Phone Number [facility] POCT RESULTS [address] [place] [address] * Lab Result - HIM Scan (07/31/2024 12:00 AM LOG DATA TECHNICIAN) 07/31/2024 us Provider Outside MH NON-BEAKER LAB TESTING Final Result * Xray Imaging - HIM Scan (07/31/2024 12:00 AM LOG DATA TECHNICIAN) Anatomical Region Laterality Modality Other 07/31/2024 us Provider Outside IMG DIAGNOSTIC IMAGING ORDERABL ES Final Result * EKG Cardiac - HIM Scan (07/31/2024 12:00 AM LOG DATA TECHNICIAN) 07/31/2024 us Provider Outside ECG ORDERABLES Final Result * Nicotine and Mets, Urn, Quant (06/29/2024 10:50 AM LOG DATA TECHNICIAN) Cotinine Confirm <15 ng/mL 07/02/20 9:09 PM LOG DATA TECHNICIAN [facility] Nicotine Confirmation Urine <15 ng/mL 07/02/2024 9:09 PM LOG DATA TECHNICIAN [facility] Comment: INTERPRETIVE INFORMATION: Nicotine and Metabolites, Urine, Quantitative Methodology: Quantitative Liquid Chromatography-Tandem Mass Spectrometry Positive cutoff: Nicotine 15 ng/mL Cotinine 15 ng/mL [id number] 50 ng/mL Anabasine 5 ng/mL For medical [...] developed and its performance characteristics determined by [facility]. It has not been cleared or approved by the [place] Food and Drug Administration. This test was performed in a CLIA certified laboratory and is intended for clinical purposes. Performed By: [facility] [address] [place] [address] Manager Research Development: Ceasar Romero MD, PhD CLIA Number: [id number], Urn, Quant <50 ng/mL 07/02/2024 9:09 PM LOG DATA TECHNICIAN [facility] Anabasine, Urn, Quant <5 ng/mL 07/02/2024 9:09 PM LOG DATA TECHNICIAN [facility] Urine URINE SPECIMEN OBTAINED BY CLEAN CATCH PROCEDURE / Unknown Non-blood Collection / Unknown 06/29/2024 10:50 AM LOG DATA TECHNICIAN 06/29/2024 10:51 AM LOG DATA TECHNICIAN Miriam Melton APRN CALL TAKER LAB - URINE ORDERABL ES Final Result [facility] [address] [place] [address], [facility] [phone] * (ABNORMAL) Lipid Profile (05/18/2024 11:25 AM [...] High: >= 220 mg/dL Miriam Melton APRN CALL TAKER LAB - BLOOD ORDERABL ES Final Result [facility] [address] [facility], [address] [place] [address] * Mammogram - HIM Scan (05/02/2024 12:00 AM CDT) Anatomical Region Laterality Modality Other 05/02/2024 us Provider Outside IMG MAMMOGRAPHY ORDERABLES Elise l Result * Pap thin layer screen with HPV - recommended age 30 - 65 years (05/07/2021 11:50 AM CDT) Interpretation Negative for Intraepithelial Lesion or Malignancy (NILM) 05/09/2021 2:32 PM CDT [facility] Specimen Adequacy Satisfactory for evaluation, endocervical/paul sformation zone component absent 05/09/2021 2:32 PM CDT [facility] Clinical Information complete hysterectomy 05/09/2021 2:32 PM CDT [facility] Reflex Testing Yes regardless of result 05/09/2021 2:32 PM CDT [facility] Previous Abnormal? No 05/09/2021 2:32 PM CDT [facility] Performing Labs The technical component of this testing was completed at [facility] 05/09/2021 2:32 PM CDT [facility] Brushing VAGINAL STRUCTURE / Unknown 05/07/2021 11:50 AM CDT 05/07/2021 12:21 PM CDT Alan Shah MD LAB - BEAKER AP Final Result [facility] [address] [place] [address], [facility] [phone] * HPV High Risk Types DNA Cervical (05/07/2021 11:50 AM CDT) Other HR HPV Negative Negative 05/13/2021 2:50 PM CDT [facility] HPV16 DNA Negative Negative 05/13/2021 2:50 PM CDT [facility] HPV18 DNA Negative Negative 05/13/2021 2:50 PM CDT [facility] FINAL DIAGNOSIS This patient's sample is negative for HPV DNA. This test was developed and its performance characteristics determined by the [facility], Molecular Diagnostics Laboratory. It has [...] followup is recommended. 05/13/2021 2:50 PM CDT [facility] Brushing VAGINAL STRUCTURE / Unknown Non-blood Collection / Unknown 05/07/2021 11:50 AM CDT 05/12/2021 8:50 AM CDT Alan Shah MD LAB - BLOOD ORDERABLES Final Result [facility] [address] [facility], [address] [place] [address], [facility] [phone] * HIV 1 and 2 rapid screen [...] Most Recently Relevant to Health [place] [id number] [facility] CHOICE Advance Directives For more information, please contact: [phone] * Full Code (Latest Code Status on File) Date Activated Date Inactivated Comments 08/07/2024 3:24 PM 08/08/2024 5:30 PM All basic and advanced life-sustaining interventions are performed as appropriate Question Answer Comments Code status determined by: Discussion with patie nt/ legal decision maker * Full Code Date Activated Date Inactivated Comments 12/19/2015 3:02 PM 12/20/2015 1:10 PM Care Teams Refinery Operator Helper Crude Unit Relationship Specialty Start Date End Date Herson Rhodes MD PCP - General 06/02/11 [facility] [id number] [place] [id number] Assigned PCP 12/14/[address] [place] [id number] Registered Dietitian Dietitian, Registered 06/09/24 Dung Alva, PhD [employer] [employer] [facility] [address] [address] Assigned Behavioral Health Provider 06/14/24 Aris Thurman MD [address] [place] [id number] Assigned Surgical Provider 07/15/24 Miriam Melton APRN CALL TAKER [address] [place] [id number] Nurse Practitioner Surgery 07/19/24
--- OUTSIDE RECORDS SUMMARY | 2024-09-02 08:26 | XMS_ITS | Encounter Summary ---
Author Organization [facility] Address [address] [place] [address]. [place] [address] Care Team Providers Care Prosthetic Technician Name Role Phone Herson Rhodes MD Primary Care Provider [facility] Unavailabl e Hien Flood RD Unavailable [phone] Dung Alva PhD Unavailable Aris Thurman MD Unavailable Miriam Melton APRN [employer]INCIPAL [employer]BER ENGINEER Unavailable +- [phone] Encounter Details Date Type Department Care Team (Late st Contact Info) Description 08/14/2024 1:00 PM AMBULANCE PARAMEDIC Virtual Visit [facility] [address] [phone] Bariatric surgery status (Primary Dx) Social History Tobacco Use Types [...] PM CDT Legal Sex Female 5:06 AM AMBULANCE PARAMEDIC Gender Identity Female 04/04/2021 10:28 PM CDT Sexual Orientation Straight 04/04/2021 10 :28 PM CDT documented as of this encounter Progress Notes * Hien Flood RD - 08/14/2024 1:00 PM CST Time in: 1:00 pm /Time out: 1:30 pm Pt presents for 1 week post op dietitian follow up. Educated pt on pureed and soft to bariatric regular diets. Provided grocery list and sample meal plan for each diet stage. Pt will begin pureed diet on 08/15/2024 and advance as tolerated to softs/bariatric regular on 08/29/2024. Instructed pt to begin 500 mg calcium citrate BID and 5000IU Vitamin D3 3 weeks post op. Pt to follow up with RD at 3 months post op. Hien Flood RD LANCE PARAMEDIC documented in this encounter Plan of Treatment Upcoming Encounters Date Type Department Care Team (Late st Contact Info) Description 09/08/2024 11:00 AM AMBULANCE PARAMEDIC Virtual Visit [facility] [address] [phone] [place] [address] [place] [address] [address] [place] [address] 11/06/2024 9:30 AM CDT Virtual Visit [facility] [address] [phone] Dung Alva, PhD [employer] [address] [facility] [address] [place] [address] 11/07/2024 9:30 AM CDT Virtual Visit [facility] [address] [place] [phone] [facility] [address] [place] [address] 02/08/2025 1:30 PM CDT Office Visit [facility] [address] [place] [phone] Miriam Melton APRN PRINCIPAL CYBER ENGINEER [address] [place] [id number] 05/09/2025 9:30 AM CDT Virtual Visit [facility] Surgery [facility] and Bariatrics Care [address] [place] [phone] [facility] [address] [place] [address] 08/09/2025 1:30 PM AMBULANCE PARAMEDIC Office Visit [facility] Surgery [facility] and Bariatrics Care [address] [phone] Miriam Melton APRN PRINCIPAL CYBER ENGINEER [address] [place] [phone] documented as of this encounter Visit Diagnoses Diagnosis Bariatric surgery status- Primary documented in this encounter Additional Health Concerns Assessment Noted Time PHQ-9 Depression Total Score: 2 05/07/20 21 11:37 AM CDT documented as of this encounter Care Teams Prosthetic Technician Relationship Specialty Start Date End Date Herson Rhodes MD PCP - General 06/02/11 Clinic - [facility] [address] [place] [address] Assigned PCP 12/14/[address] [facility] [address] Registered Dietitian Dietitian, Registered 06/09/24 Dung Alva, PhD [employer] AND [facility] [address] [facility] [address] [place] [address] Assigned Behavioral Health Provider 06/14/24 Aris Thurman MD [address] [place] [address] Assigned Surgical Provider 07/15/24 Miriam Melton APRN PRINCIPAL CYBER ENGINEER [address] [place] [id number] Nurse Practitioner Surgery 07/19/24 documented as of this encounter
--- OUTSIDE RECORDS SUMMARY | 2024-09-02 08:26 | XMS_ITS | Encounter Summary ---
Author Organization [facility] Address [address] [place] [id number] Care Team Providers Care Senior Architect Name Role Phone Herson Rhodes MD Primary Care Provider [facility] Unavailabl e Hien Flood RD Unavailable [phone] Dung Alva PhD Unavailable Aris Thurman MD Unavailable [phone] Miriam Melton APRN CENTER MANAGER Unavailable Reason for Visit * Auth/Cert Specialty Diagnoses / Procedures Referred By Abdirizak trimble Referred To Contact Surgery Diagnoses Morbid obesity (H) Duodenal stricture Morbid obesity (H) [E66.01] Duodenal stricture [K31.5] Procedures GA REMOVAL STOMACH,SRIDHAR-EN-Y GA REMV STOMACH,PART,DISTAL,SRIDHAR-EN-Y GA LAPAROSCOPIC GASTRIC RESTRICTIVE PX, W/GASTRIC BYPASS/ SRIDHAR-EN-Y, < 150CM ZZC GASTRIC BYPASS,OBESE<100CM SRIDHAR-EN-Y CREATION, GASTRIC BYPASS, SRIDHAR-EN-Y, LAPAROSCOPIC [address] [address] Phone: tel: Referral ID Status Reason Start Date Expiration Date Visits Re quested Visits Authorized [id number] 1 1 Encounter Details Date Type Department Care Team ([facility] st Contact Info) Description 08/07/2024 8:47 AM CLASSROOM MONITOR - 08/08/2024 3:24 PM CLASSROOM MONITOR Hospital Encounter [facility] [address] [place] [phone] Aris Thurman MD [phone] [address] Morbid (severe) obesity due to excess calories (H) (Primary Dx); S/P gastric bypass Discharge Disposition: Home or Self Care Social History Tobacco Use Types Packs/Day Years [...] PM CDT Legal Sex Female 5:06 AM CLASSROOM MONITOR Gender Identity Female 04/04/2021 10:28 PM CDT Sexual Orientation Straight 04/04/2021 10 :28 PM CDT documented as of this encounter Last Filed Vital Signs Vital Sign Reading Time Taken Comments Blood Pressure 105/56 08/08/2024 7:44 AM CLASSROOM MONITOR Pulse 58 08/08/2024 7:44 AM CLASSROOM MONITOR Temperature 36.4 C (97.5 F) 08/08/2024 7:44 AM CLASSROOM MONITOR Respiratory Rate 19 08/08/2024 7:44 AM CLASSROOM MONITOR Oxygen Saturation 96% 08/08/2024 7:44 AM CLASSROOM MONITOR Inhaled Oxygen Concentration - - Weight 130.5 kg (287 lb 9.6 oz) 08/07/2024 8:55 AM CLASSROOM MONITOR Height - - Body Mass Index 47.86 07/19/2024 2:41 PM CLASSROOM MONITOR documented in this encounter Discharge Summaries * Miriam Melton APRN CNP - 08/08/2024 1:51 PM CST Images from the original note were not included. Bariatric Surgery Discharge Summary Primary Care Physician: Herson Rhodes Discharge Provider: Miriam Melton APRN CNP Admission Date: 08/07/2024 Discharge Date: August 08, 2024 Primary Diagnosis at Discharge: Patient Active Problem List Diagnosis Spondylarthrosis Sacroiliac joint pain Chronic low back pain Degenerative arthritis of cervical spine Anxiety associated with depression Overweight Muscular deconditioning Endometriosis Vaginal Pap smear Obesity (BMI 35.0-39.9) with comorbidity (H) Morbid (severe) obesity due to excess calories (H) Disposition: Home Condition at Discharge: Stable Surgery: Laparoscopic Sridhar-en-y Gastric Bypass Hospital Summary: Sofia Iyer was admitted for morbid obesity. she underwent an uncomplicated laparoscopic Sridhar-en-y gastric bypass. Following a brief recovery in the PACU, she was transferred to the Med/Surg floor for the remainder of her stay. her post operative course was uneventful. On POD # 1 she was discharged home tolerating a full liquid diet, ambulating without assistance, and pain controlled with oral analgesics. Discharge Medications: Medication List Started metoprolol tartrate 50 MG tablet Commonly known as: LOPRESSOR 50 mg, Oral, 2 TIMES DAILY traMADol 50 MG tablet Commonly known as: ULTRAM 50 mg, Oral, EVERY 6 HOURS PRN Modified * acetaminophen 500 MG tablet Commonly known as: TYLENOL What changed: additional instructions * Tylenol Dissolve Packs 500 MG Pack Generic drug: Acetaminophen 1,000 mg, Oral, EVERY 6 HOURS What changed: You were already taking a medication with the same name, and this prescription was added. Make sure you understand how and when to take each. biotin 2.5 MG Tabs What changed: medication strength how much to take additional instructions * DULoxetine 30 MG capsule Commonly known as: CYMBALTA What changed: additional instructions * DULoxetine 60 MG capsule Commonly known as: CYMBALTA What changed: additional instructions estradiol 0.05 MG/24HR weekly patch Commonly known as: CLIMARA Start taking on: August 10, 2024 What changed: additional instructions furosemide 20 MG tablet Commonly known as: LASIX What changed: additional instructions omeprazole [address] capsule Commonly known as: PriLOSEC What changed: when to take this additional instructions Toprol XL 100 MG 24 hr tablet Generic drug: metoprolol succinate ER What changed: additional instructions vitamin D3 50 mcg (2000 units) tablet Commonly known as: CHOLECALCIFEROL What changed: additional instructions * This list has 4 medication(s) that are the same as other medications prescribed for you. Read thedirections carefully, and ask your doctor or other care provider to review them with you. Discontinued celecoxib 200 MG capsule Commonly known as: celeBREX Mounjaro 7.5 MG/0.5ML Soaj Generic drug: Tirzepatide Discharge Instructions: Follow up appointment with Primary Care Physician: Herson Rhodes A Follow up appointment with Dr. Thurman in 2 weeks Attend the post-op dietary class as scheduled Post operative instructions: Diet: For one week following your surgery or until you meet with the senior technical specialist, you will be on a full liquid diet. It is extremely important to follow the liquid diet to allow for optimal healing and to prevent food from becoming lodged at the gastric outlet. Protein is an important part of the diet after surgery; therefore, it is necessary to drink fluids that are high in protein. Proteins are building blocks that help you heal after surgery and help preserve your muscle mass while you are losing weight. Including carbohydrates in the diet is also important after surgery to prevent your body from burning fat for energy (Ketosis). These carbohydrates include: unsweetened applesauce, blended canned fruit (in its own juice), Stage I baby food fruit, thin cream of wheat, light yogurt (no fruit chunks),or 100% fruit juice diluted (50% juice/50% water). Remember to take 1 Multivitamin with Iron 2 times daily and 1000 mcg of Sublingual B-12 daily. Aim for 40-50 grams of protein daily during this week. Sip 48-64 ounces of liquid per day in addition to full liquid meals/supplements. After 2 weeks of the full liquid diet, you will advance to the pureed diet, as instructed. Activity: You should continue to be active at home including ambulating frequently. If possible tryto limit the amount of time spent in bed. Restrictions: you should avoid lifting anything more than 20 pounds or strenuous physical activity for a total of 2 weeks. Miriam Melton APRN CNP [phone] [facility] General and Bariatric Surgery SROOM MONITOR documented in this encounter Discharge Instructions * Discharge Instructions* Miriam Melton APRN CNP - 08/08/2024 10:16 AM CLASSROOM MONITOR If you are worried about whether or not you need to be seen or if something is wrong, please call your bariatric nurse line at [phone] or the bariatric clinic at [phone]. If you need to be seen in the emergency department for any reason in the next 30 days, please return to [facility]. The bariatric team should be involved in your care/diet even if the problem is unrelated to your surgery. SROOM MONITOR documented in this encounter Medications at Time of Discharge acetaminophen (TYLENOL) 500 MG tablet Take 2 tablets (1,000 mg) by mouth every 6 hours as needed for mild pain. Do not take this while taking scheduled Tylenol after surgery. You can resume taking acetaminophen as needed 4 days after surgery when scheduled doses are done. 08/08/2024 baclofen (LIORESAL) 20 MG tablet Take 40 mg by mouth 3 times daily. (Takes 2 x 20mg = 40mg) biotin 2.5 MG TABS Take by mouth daily. Do not start taking after surgery until advised by senior technical specialist in post-op class. 08/08/2024 cetirizine (ZYRTEC) 10 MG tablet Take 10 mg by mouth daily. cyanocobalamin (VITAMIN B-12) 1000 MCG sublingual tabletIndication s:Morbid obesity (H),S/P bariatric surgery,Intestin al malabsorption, unspecified type Place 1 tablet (1,000 mcg) under the tongue daily. Start right after surgery. 90 tablet 3 07/19/2024 doxazosin (CARDURA) 1 MG tablet Take 1 mg by mouth at bedtime. DULoxetine (CYMBALTA) 30 MG capsule Take 1 capsule (30 mg) by mouth daily. Open capsule and place into pudding or yogurt. Make a well in the pudding, put the beads into the well and cover it. Take entire medication in one bite and do not chew (beads can not be broken between teeth), swallow as a pudding/yogurt pill. 08/08/2024 DULoxetine (CYMBALTA) 60 MG capsule Take 1 capsule (60 mg) by mouth daily. Open capsule and place into pudding or yogurt. Make a well in the pudding, put the beads into the well and cover it. Take entire medication in one bite and do not chew (beads can not be broken between teeth), swallow as a pudding/yogurt pill. 08/08/2024 estradiol (CLIMARA) 0.05 MG/24HR weekly patch Place 1 patch onto the skin 2 times a week. Continue to hold until 30 days after surgery 08/10/2024 fluticasone (FLONASE) 50 MCG/ACT nasal spray Butner 2 sprays into both nostrils daily as needed for allergies. furosemide (LASIX) 20 MG tablet Take 1 tablet (20 mg) by mouth daily. Hold for 2 weeks after surgery 08/08/2024 lamoTRIgine (LAMICTAL) 150 MG tablet Take 150 mg by mouth daily. metoprolol succinate ER (TOPROL XL) 100 MG 24 hr tablet Take 1 tablet (100 mg) by mouth daily. Can restart in 6 weeks when able to take medications whole 08/08/2024 metoprolol tartrate (LOPRESSOR) 50 MG tabletIndication s:Morbid (severe) obesity due to excess calories (H),S/P gastric bypass Take 1 tablet (50 mg) by mouth 2 times daily. 84 tablet 08/08/2024 omeprazole (PRILOSEC) [address] capsule Take 1 capsule (40 mg) by mouth daily. Open and sprinkle capsule for the first 6 weeks after surgery. Then can resume taking it whole 08/08/2024 Pediatric Multivitamins-Ir on (MULTIVITAMINS PLUS IRON CHILD) 18 MG CHEWIndications: Morbid obesity (H),S/P bariatric surgery,Intestin al malabsorption, unspecified type Take 1 chew tab by mouth 2 times daily. Ok to substitute with any chewable that contains 18 mg of iron, Vitamin A, Thiamine and Zinc. 180 tablet 3 07/19/2024 pregabalin (LYRICA) 150 MG capsule Take 150 mg by mouth 2 times daily. topiramate (TOPAMAX) 100 MG tablet Take 100 mg by mouth 2 times daily traZODone (DESYREL) 100 MG tablet Take 100 mg by mouth at bedtime. ursodiol (ACTIGALL) 300 MG capsuleIndicatio ns:Morbid obesity (H),S/P bariatric surgery,Rapid weight loss Take 1 capsule (300 mg) by mouth 2 times daily. Start 2 weeks after surgery, do not open-take with warm liquid. Take twice a day for 6 months. 180 capsule 1 07/19/2024 5 vitamin D3 (CHOLECALCIFEROL ) 50 mcg (2000 units) tablet Take 2 tablets (100 mcg) by mouth daily. Do not start taking after surgery until advised by senior technical specialist in post-op class. 08/08/2024 Acetaminophen (TYLENOL DISSOLVE PACKS) 500 MG PACKIndications: Morbid (severe) obesity due to excess calories (H),S/P gastric bypass Take 1,000 mg by mouth every 6 hours for 3 days. 24 each 08/08/2024 4 traMADol (ULTRAM) 50 MG tabletIndication s:Morbid (severe) obesity due to excess calories (H),S/P gastric bypass Take 1 tablet (50 mg) by mouth every 6 hours as needed for moderate pain (pain). 10 tablet 08/08/2024 5 documented as of this encounter Progress Notes * Miriam Melton APRN CENTER MANAGER - 08/08/2024 1:50 PM CST Bariatric Surgery Progress Note 1 Day Post-Op Procedure(s): CREATION, GASTRIC BYPASS, SRIDHAR-EN-Y, LAPAROSCOPIC Subjective: Patient reports pain is controlled. Patient is tolerating bariatric full liquid diet, ambulating and voiding. Patient denies fever, chills, dizziness, blurred vision, headache, nausea, vomiting, SOB,CP, and leg pain. Patient Vitals for the past 24 hrs: BP Temp Temp src Pulse Resp SpO2 08/08/24 0744 105/56 97.5 ??F (36.4 ??C) Oral 58 19 96 % 08/08/24 0347 121/83 97.3 ??F (36.3 ??C) Oral 59 19 95 % 08/08/24 0037 107/61 97.4 ??F (36.3 ??C) Oral 58 17 96 % 08/07/24 1914 113/63 97.8 ??F (36.6 ??C) Oral 73 16 96 % 08/07/24 1814 111/63 -- -- 73 15 96 % 08/07/24 1714 125/75 97.9 ??F (36.6 ??C) Oral 68 13 96 % 08/07/24 1644 119/64 98.2 ??F (36.8 ??C) Oral 72 19 97 % 08/07/24 1614 132/73 98.2 ??F (36.8 ??C) Oral 75 15 98 % 08/07/24 1544 131/75 98.1 ??F (36.7 ??C) Oral 72 22 97 % 08/07/24 1500 (!) 148/72 -- -- 74 22 98 % 08/07/24 1451 -- -- -- 70 27 93 % 08/07/24 1446 -- -- -- 74 26 96 % 08/07/24 1445 (!) 164/94 -- -- 72 20 91 % 08/07/24 1430 (!) 140/83 97.2 ??F (36.2 ??C) Temporal 76 20 99 % 08/07/24 1425 -- -- -- 72 24 97 % 08/07/24 1415 (!) 157/90 -- -- 70 14 92 % 08/07/24 1400 (!) 155/83 -- -- 74 22 94 % 08/07/24 1352 -- -- -- 76 12 93 % Physical Exam: General: A/O, NAD Ab: Soft, + BS, expected ttp POD 1; The wound/ dressings are clean, dry, and intact : Patient is voiding adequate amount Admission on 08/07/2024 Component Date Value GLUCOSE BY METER POCT 08/07/2024 112 (H) Platelet Count 08/07/2024 314 Creatinine 08/07/2024 0.95 GFR Estimate 08/07/2024 76 Creatinine 08/08/2024 0.92 GFR Estimate 08/08/2024 79 Hold Specimen 08/08/2024 [facility] Assessment/Plan: Patient is progressing well after surgery. Once she is meeting oral intake goals, she should be able to discharge home today. Discharge orders and instructions are placed Discussed discharge instructions with the patient along with signs and symptoms to watch for post-op. Patient verbalized understanding of the plan, including: - Use of incentive spirometer and walking as tolerated - Use of abdominal binder if needed - Importance of getting 48-64 ounces of water in daily for hydration - Use of medication cups for measuring out sips for the next 3-4 days. - Bariatric full liquid diet for the next week. - Drink a protein shake providing 20-30 grams of protein in addition to meals daily; aim for a total of 40 grams of protein daily - Attend the post-op dietary class next week - Take omeprazole daily for the next 3 months and avoid/eliminate NSAID usage - Take chewable MVI with 18mg iron twice a day and SL B12 1,000-2,500 mcg daily. - Call Bariatric clinic with any questions or concerns - If patient needs to be seen in the emergency department for any reason, she needs to return to [facility]. Pt is scheduled to follow up at Bariatric Clinic next week. Patient verbalized understanding of theplan. Bariatric nurse clinician will call her in a couple days when she gets home to check in with her. Greater than 45 minutes were spent with this patient with more than 50% of that time spent on education. Miriam Melton CNP [phone] [facility] General and Bariatric Surgery SROOM MONITOR * Aris Thurman MD - 08/08/2024 9:13 AM CST General Surgery Progress Note POST OP DAY # 1, status post Laparoscopic SRIDHAR--EN-Y GASTRIC BYPASS Subjective: Pt is feeling well, pain is well controlled Pt is urinating without a catheter Vitals: 08/07/24 1914 08/08/24 0037 08/08/24 0347 08/08/24 0744 BP: 113/63 107/61 121/83 105/56 BP Location: Right arm Right arm Left arm Left arm Patient Position: Supine Pulse: 73 58 59 58 Resp: Temp: 97.8 ??F (36.6 ??C) 97.4 ??F (36.3 ??C) 97.3 ??F (36.3 ??C) 97.5 ??F (36.4 ??C) TempSrc: Oral Oral Oral Oral SpO2: 96% 96% 95% 96% Weight: Physical Exam: Lungs: CTA CV: RRR Ab: Soft, + BS, dressings are clean dry and intact Assessment: Pt is progressing well. Their pain is well controlled. They have advanced through theirclear liquids and are working on their full liquid diet without nausea or vomiting. Plan: They will be ready for discharge today. Aris Thurman MD [facility] [phone] SROOM MONITOR * Zahra Seals RN - 08/08/2024 6:41 AM CST Images from the original note were not included. Care Plan Progress Note: Name: Sofia Iyer : 1980 Problem: Bariatric Procedure Goal: Prevent post-op bariatric complications. Appropriate oral intake. Discharge needs are met. Intervention: Post Op Day 0/1 (progress as patient tolerates) -Notify MD of excessive nausea -NPO per MD orders; read exceptions to the order -Toothette with 1/2 inch warm water at bedside until able to take PO -Do not give ice chips, straws, or carbonation -Whenever drinking liquids, patient must be upright with both feet on the floor -No more than 30mL per sip -All liquids must be at approximately room temperature (no extreme temperatures). -After 2 hours of 30mL PO q30min, you may take 30mL as tolerated and advance to a clear liquid diet -No oral pills until after the patient tolerates the 2 hours of 30mL sips (exceptions: sublingual medications can be given anytime; liquid gabapentin can be given after 1 hours of sips) -Strict intake and output -Bladder scan every 4 hours until voiding freely -If tolerating sips, start bariatric clear liquid diet -If tolerating bariatric clears, advance to a bariatric full liquid diet Discharge Planning -Educate patient about pill size -Patient should take no pill greater than 1/4 inch -Send pill cutter home with patient -Nurse to review home discharge instructions Outcome: Shift Intake: IV 725 mL and Oral 420 mL Output: 400 mL Bladder Scan: 289 mL Pain: 3/10 Incision: Scant drainage but intact Nausea: Resolved with anti-emetic Activity: SBA in room Incentive Spirometry: Abdominal Binder: On Zahra Seals RN 08/08/2024 6:41 AM SROOM MONITOR * Zahra Seals RN - 08/08/2024 12:22 AM CST Images from the original note were not included. Care Plan Progress Note: Name: Sofia Iyer : 1980 Problem: Bariatric Procedure Goal: Prevent post-op bariatric complications. Appropriate oral intake. Discharge needs are met. Intervention: Post Op Day 0/1 (progress as patient tolerates) -Notify MD of excessive nausea -NPO per MD orders; read exceptions to the order -Toothette with 1/2 inch warm water at bedside until able to take PO -Do not give ice chips, straws, or carbonation -Whenever drinking liquids, patient must be upright with both feet on the floor -No more than 30mL per sip -All liquids must be at approximately room temperature (no extreme temperatures). -After 2 hours of 30mL PO q30min, you may take 30mL as tolerated and advance to a clear liquid diet -No oral pills until after the patient tolerates the 2 hours of 30mL sips (exceptions: sublingual medications can be given anytime; liquid gabapentin can be given after 1 hours of sips) -Strict intake and output -Bladder scan every 4 hours until voiding freely -If tolerating sips, start bariatric clear liquid diet -If tolerating bariatric clears, advance to a bariatric full liquid diet Discharge Planning -Educate patient about pill size -Patient should take no pill greater than 1/4 inch -Send pill cutter home with patient -Nurse to review home discharge instructions Outcome: Shift Intake: IV 1,239 mL and Oral 510 mL Output: 0 Bladder Scan: 331 mL Pain: 3 Incision: Scant drainage Nausea: Yes. Administered IV Ondansetron Activity: SBA Incentive Spirometry: Abdominal Binder: On Zahra Seals RN 08/08/2024 12:23 AM SROOM MONITOR documented in this encounter H&P Notes * Aris Thurman MD - 08/07/2024 9:02 AM CST Images from the original note were not included. HISTORY AND PHYSICAL UPDATE: I have assessed the patient and evaluated the chart and and verify the patient's clinical status has not changed since our last documentation. The patient is ready to move forward with the planned surgery. Lungs: Clear to auscultation Heart: Regular rate and rhythm HPI: Sofia Iyer is a 43 year [...] Levofloxacin, and Phenergan dm [promethazine-dm] Past Medical History Past Medical History: Diagnosis Date Allergic rhinitis [...] Walking troubles not current 05/29/11 Past Surgical History Past Surgical History: Procedure Laterality Date COLONOSCOPY ESOPHAGOSCOPY, GASTROSCOPY, DUODENOSCOPY (EGD), COMBINED N/A 04/09/2021 Procedure: ESOPHAGOGASTRODUODENOSCOPY WITH DUODENAL DILATION AND GASTRIC BIOPSIES; Surgeon: Kashif Su MD; Location: [facility] OR ADJUNCT TEACHER SURGERY exc endometrial cysts HYSTERECTOMY, PAP STILL INDICATED until 2025 HYSTEROSCOPY DIAGNOSTIC 01/08/2014 Procedure: HYSTEROSCOPY DIAGNOSTIC; Surgeon: Alan Shah MD; Location: [facility] HYSTEROSCOPY DIAGNOSTIC N/A 02/12/2015 Procedure: HYSTEROSCOPY DIAGNOSTIC; Surgeon: Alan Shah MD; Location: [facility] INSERT STIMULATOR DORSAL COLUMN INSERT STIMULATOR DORSAL COLUMN 03/16/2011 Procedure:INSERT STIMULATOR DORSAL COLUMN; Procedure: Exchange of charageable battery of Dorsal Spinal cord stimulator with nonchargeable ; Surgeon:AJ MITCHELL; Location:[facility] OR INSERT STIMULATOR DORSAL COLUMN 06/02/2011 Procedure:INSERT STIMULATOR DORSAL COLUMN; Medtronic Spinal Cord Stimulator Revision; Surgeon:AJ MITCHELL; Location: OR LAPAROSCOPIC ASSISTED HYSTERECTOMY VAGINAL N/A [...] LYSIS ADHESIONS; Surgeon: Alan Shah MD; Location: [facility] LASER CO2 LAPAROSCOPY DIAGNOSTIC, LYSIS ADHESIONS, COMBINED N/A 04/11/2019 Procedure: LAPAROSCOPY, USING CO2 LASER (TRANSBox TECH); Surgeon: Alan Shah MD; Location: OR radio frequency ablation nerve spine radiofrequency ablation of nerve neck 05/25/11 REPLACE BATTERY STIMULATOR DORSAL COLUMN 02/14/2014 Procedure: REPLACE BATTERY STIMULATOR DORSAL COLUMN; Surgeon: Aj Mitchell MD; Location: [facility] OR CURRENT MEDS: Inpatient Administered Meds No current facility-administered medications for this visit. Family History Family History Problem Relation Age of Onset [...] bariatric surgery by the psychologist. Vitals: BP (!) 142/89 (BP Location: Right arm) Pulse 80 Temp 98.2 ??F (36.8 ??C) (Oral) Resp 18 Wt 130.5 kg (287 lb 9.6 oz) LMP 06/11/2015 SpO2 96% BMI 47.86 kg/m?? BMI= Body mass index is 47.86 kg/m??. EXAM: GENERAL: This is a well-developed [...] cutoff: Nicotine 15 ng/mL Cotinine 15 ng/mL 4-RA-Ziwftfcb 50 ng/mL Anabasine 5 ng/mL Component Ref [...] and duodenum for future dilations if needed. Aris Thurman [facility]; surgeons [phone] SROOM MONITOR documented in this encounter Miscellaneous Notes * Care Plan - Danilo Rodriguez RN - 08/08/2024 3:24 PM CST Images from the original note were not included. Care Plan Progress Note: Name: Sofia Iyer : 1980 Problem: Bariatric Procedure Goal: Prevent post-op bariatric complications. Appropriate oral intake. Discharge needs are met. Intervention: Post Op Day 0/1 (progress as patient tolerates) -Notify MD of excessive nausea -NPO per MD orders; read exceptions to the order -Toothette with 1/2 inch warm water at bedside until able to take PO -Do not give ice chips, straws, or carbonation -Whenever drinking liquids, patient must be upright with both feet on the floor -No more than 30mL per sip -All liquids must be at approximately room temperature (no extreme temperatures). -After 2 hours of 30mL PO q30min, you may take 30mL as tolerated and advance to a clear liquid diet -No oral pills until after the patient tolerates the 2 hours of 30mL sips (exceptions: sublingual medications can be given anytime; liquid gabapentin can be given after 1 hours of sips) -Strict intake and output -Bladder scan every 4 hours until voiding freely -If tolerating sips, start bariatric clear liquid diet -If tolerating bariatric clears, advance to a bariatric full liquid diet Discharge Planning -Educate patient about pill size -Patient should take no pill greater than 1/4 inch -Send pill cutter home with patient -Nurse to review home discharge instructions Outcome: Shift Intake:600 Output:775 Bladder Scan: Pain:10/30 Incision: C_D_I Nausea:x1 with Zofran given Activity: walked 200 FT Incentive Spirometry: 1000 Abdominal Binder: In Place Danilo Rodriguez RN 08/08/2024 3:27 PM SROOM MONITOR * Plan of Care - Danilo Rodriguez RN - 08/08/2024 10:42 AM CST Problem: Adult Inpatient Plan of Care Goal: Readiness for Transition of Care Outcome: Progressing Problem: Adult Inpatient Plan of Care Goal: Optimal Comfort and Wellbeing Outcome: Progressing Problem: Adult Inpatient Plan of Care Goal: Absence of Hospital-Acquired Illness or Injury Outcome: Progressing Goal Outcome Evaluation: Plan of Care Reviewed With: patient Overall Patient Progress: improving SROOM MONITOR * Op Note - Aris Thurman MD - 08/07/2024 11:20 AM CST OP NOTE: LAPAROSCOPIC SRIDHAR-EN-Y GASTRIC BYPASS Name: Sofia Iyer PCP: Herson Rhodes Procedure Date: 08/07/2024 BMI at time of introduction into the Bariatric Surgery Program: 51 Obesity related comorbid conditions: HTN, GERD, 1. The patient's body mass index (BMI) is or has been greater than or equal to 35 kg/m2 . 2. The patient has at least one co-morbidity related to obesity (as outlined above). 3. The patient has been previously unsuccessful with medical treatment for obesity. Surgery: LAPAROSCOPIC SRIDHAR-EN-Y GASTRIC BYPASS Pre-Procedure Diagnosis: Morbid Obesity Post-Procedure Diagnosis: Morbid Obesity Surgeon(s): Aris Thurman MD Surg Assist: Miriam Melton CNP; her assistance was required for exposure and visualization . Anesthesia Type: GET Findings: Morbid Obesity Operative Report: Patient is brought to the operating room placed in the supine position and given general endotracheal anesthesia. she was sterilely prepped and draped in the usual surgical fashion. A timeout was undertaken before starting the surgery. A 12 mm trocar was advanced into the left supraumbilical area under direct visualization of the surgery laparoscope and taken into the intra-peritoneal cavity. A pneumoperitoneum was brought up to 15mmHg. The additional trochars were placed in the usual fashion for Sridhar-en-Y gastric bypass. I placed a 5 mm trocar in the subxiphoid position removed the trocar and replaced with a Nemo liver retractor which was then attached to the iron design intern to stabilize and retract the left lobe of the liver up and away from the upper aspect of the stomach. A 5 mm trochars placed in the right upper quadrant. A 12 mm trocar was placed in the right supraumbilical region and two 5 mm trochars were placedin the left upper abdomen all under direct visualization of the laparoscope. The gastric pouch was formed by taking down parietal peritoneum along the left side of the gastroesophageal junction. The left fito was exposed and the finger dissector is used to create a space behind the upper part of the stomach to the left of the gastro-esophageal junction. The tissues were then dissected along the lesser curvature of the stomach and entering into the lesser sac. A ANALI 60 stapler with a green load was fired transversely across the stomach at this midportion of the lesser curve. The staple line was then turned vertical and paralleled the lesser curve and with a series of ANALI 60 green load maximiliano with seam guard the vertical portion of the gastric pouch staple line was formed. Some dissection was done under the stomach from inside the Lesser Sac with the Harmonic scalpel to connect through to that dissection along the left aspect of the gastroesophageal junction. With this window opened I am able to complete the gastric pouch with excellent visualization. The omentum and colon were retracted superiorly and the ligament of Treitz was identified. The proximal jejunum was measured out for 80 cm away from the ligament of Treitz. I brought the jejunum up and sutured it to the newly formed gastric pouch with a running 2-0 Polysorb suture which was used toimbricate the staple line along the distal aspect of the gastric pouch. A 32 Singaporean VISI-G tube wasadvanced on into the gastric pouch some minor tension was put on the oral gastric tube distally andagainst the pressure of the tube I was able to advance the Harmonic scalpel into the gastric pouch.I then made a small gastrotomy with the Harmonic scalpel and retracted the oral gastric tube. I made a enterotomy in the jejunum in the corresponding position. I then advanced a blue load stapler in through the lumen of the jejunum and through the gastric pouch and for a 30 millimeter segment stapled the gastric pouch to the jejunum forming the gastrojejunal anastomosis. The opening where the stapler had been removed was then closed with a running 2-0 Polysorb suture.. The 32 Singaporean VISI- G tubewas then advanced down through the gastric pouch again across to the gastrojejunal anastomosis and out into the Sridhar limb. A second row of sutures were placed using a 3-0 strata fix that sutured the jejunum to the gastric pouch for a two-layered sutured closure across the gastrojejunal anastomosis.The proximal aspect of the jejunum leading into this anastomosis was isolated and a window through the underlying mesentery was cleared with Harmonic scalpel. The jejunum was divided with a white load of the ANALI 60 mm stapler. The Sridhar limb was measured out for a length of 150 cm then approximated the end of the biliopancreatic limb and sutured these 2 loops of bowel side by side with a 2-0 Polysorb suture. I made an enterotomy in the antimesenteric side of both the segments of bowel and did a 60 mm Endo ANALI stapler lineanastomosing these 2 segments of small bowel. The stapler was removed and the open enterotomy was cl osed with a running 2-0 Polysorb suture. I then closed the mesenteric defect with a running 2-0 Polysorb suture. And finally closed the Bentley's defect where the Sridhar limb comes up and over the omentum and the colon to get to the gastic pouch. This was sutured closed with a running 2-0 Polysorb suture. The gastrojejunal anastomosis anastomosis was tested with air by clamping the Sridhar limb and infusing air into the oral gastric tube while having the gastrojejunal anastomosis submerged under normal saline I did not see any air leakage. The fluid was aspirated from this area. The abdominal cavity was evaluated for hemostasis and found to be clean and dry. Pneumoperitoneum was removed after taking out the Nemo liver retractor the trochars were removed and each of the trocar sites were closed with 4-0 subcuticular Monocryl sutures. The wounds are dressed with Telfa and Tegaderm the patient was extubated taken to recovery there is no complications with this procedure Estimated Blood Loss: 5 cc Specimens: * No specimens in log * Drains: Complications: None Aris Thurman MD Date: 08/07/2024 Time: 12:49 PM SROOM MONITOR * Pharmacy-Admission Medication History - French Bentley RPH - 08/07/2024 9:48 AM CST Pharmacist Admission Medication History Admission medication history is complete. The information provided in this note is only as accurateas the sources available at the time of the update. Information Source(s): Patient, Clinic records, and [facility] via in-person Pertinent Information: none Allergies reviewed with patient and updates made in EHR: yes Medication History Completed By: French Bentley RPH 08/07/2024 9:48 AM PHOTOGRAPHER SCIENTIFIC Med List Medication Sig Last Dose/Taking acetaminophen (TYLENOL) 500 MG tablet Take 1,000 mg by mouth every 6 hours as needed for mild pain.08/06/2024 at 5:00 PM baclofen (LIORESAL) 20 MG tablet Take 40 mg by mouth 3 times daily. (Takes 2 x 20mg = 40mg) 08/06/2024 Evening BIOTIN PO Take 1 tablet by mouth daily. 08/06/2024 celecoxib (CELEBREX) 200 MG capsule Take 200 mg by mouth 2 times daily. 07/30/2024 cetirizine (ZYRTEC) 10 MG tablet Take 10 mg by mouth daily. 08/06/2024 cyanocobalamin (VITAMIN B-12) [address] 1 tablet (1,000 mcg) under the tongue daily. Start right after surgery. 08/06/2024 doxazosin (CARDURA) 1 MG tablet Take 1 mg by mouth at bedtime. 08/06/2024 Morning DULoxetine (CYMBALTA) 30 MG capsule Take 30 mg by mouth daily. 08/06/2024 DULoxetine (CYMBALTA) 60 MG capsule Take 60 mg by mouth daily. 08/06/2024 estradiol (CLIMARA) 0.05 MG/24HR weekly patch Place 1 patch onto the skin 2 times a week. 06/23/2024 fluticasone (FLONASE) 50 MCG/ACT nasal spray Butner 2 sprays into both nostrils daily as needed for allergies. More than a month furosemide (LASIX) 20 MG tablet Take 20 mg by mouth daily. 07/23/2024 lamoTRIgine (LAMICTAL) 150 MG tablet Take 150 mg by mouth daily. 08/07/2024 at 3:00 AM metoprolol succinate ER (TOPROL XL) 100 MG 24 hr tablet Take 100 mg by mouth daily 08/07/2024 at 3:00 AM omeprazole (PRILOSEC) [address] capsule Take 40 mg by mouth 2 times daily. 08/06/2024 Morning Pediatric Multivitamins-Iron (MULTIVITAMINS PLUS IRON CHILD) 18 MG CHEW Take 1 chew tab by mouth 2 times daily. Ok to substitute with any chewable that contains 18 mg of iron, Vitamin A, Thiamine andZinc. 08/06/2024 pregabalin (LYRICA) 150 MG capsule Take 150 mg by mouth 2 times daily. 08/06/2024 Tirzepatide (MOUNJARO) 7.5 MG/0.5ML SOAJ Inject 0.5 mLs (7.5 mg) subcutaneously every 7 days. 07/18/2024 topiramate (TOPAMAX) 100 MG tablet Take 100 mg by mouth 2 times daily 08/06/2024 Morning traZODone (DESYREL) 100 MG tablet Take 100 mg by mouth at bedtime. More than a month vitamin D3 (CHOLECALCIFEROL) 50 mcg (2000 units) tablet Take 2 tablets by mouth daily. 08/06/2024 SROOM MONITOR documented in this encounter Plan of Treatment Upcoming Encounters Date Type Department Care Team (Late st Contact Info) Description 09/08/2024 11:00 AM CLASSROOM MONITOR Virtual Visit [facility] [address] [place] [phone] Betty Leonardo, RD [address] [facility] [address] [place] [address] 11/06/2024 9:30 AM CDT Virtual Visit [facility] and Bariatrics [address] [phone] Dung Alva, PhD RONNA AND Advise Only [address] [address] 11/07/2024 9:30 AM CDT Virtual Visit [facility] and Bariatrics Care [address] [phone] Hien Flood, RD [address] [facility] [address] [place] [address] 02/08/2025 1:30 PM CDT Office Visit [facility] and [facility]ariatrics Care [address] [place] [phone] Miriam Melotn APRN CENTER MANAGER [address] [place] [id number] 05/09/2025 9:30 AM CDT Virtual Visit [facility] [place] [address] [facility] [address] [place] [address] Hien Flood, RD [address] [facility] [address] [place], [place] [id number] 08/09/2025 1:30 PM CLASSROOM MONITOR Office Visit [facility] [place] [address] [facility] [address] [place] [address] Miriam Melton APRN CENTER MANAGER [address] [facility] 200 [place] [address] documented as of this encounter Procedures Procedure Name Priority Date/Time Associated Diagnosis Comments EXTRA PURPLE TOP EDTA (LAB USE ONLY) Routine 08/08/2024 6:23 AM CLASSROOM MONITOR CREATININE Routine 08/08/2024 6:23 AM CLASSROOM MONITOR PLATELET COUNT Routine 08/07/2024 4:10 PM CLASSROOM MONITOR CREATININE Routine 08/07/2024 4:10 PM CLASSROOM MONITOR CREATION, GASTRIC BYPASS, SRIDHAR-EN-Y, LAPAROSCOPIC 08/07/2024 10:48 AM CLASSROOM MONITOR Morbid obesity (H) Duodenal stricture Special Needs BMI 49.09Staff assist POC US GUIDANCE NEEDLE PLACEMENT Routine 08/07/2024 9:18 AM CLASSROOM MONITOR GLUCOSE BY METER Routine 08/07/2024 9:02 AM CLASSROOM MONITOR LAB RESULT - HIM SCAN 07/31/2024 12:00 AM CLASSROOM MONITOR XRAY IMAGING - HIM SCAN 07/31/2024 12:00 AM CLASSROOM MONITOR EKG CARDIAC - HIM SCAN 07/31/2024 12:00 AM CLASSROOM MONITOR documented in this encounter Results * Extra Purple Top EDTA (LAB USE ONLY) (08/08/2024 6:23 AM CLASSROOM MONITOR) Hold Specimen JIC 08/08/2024 7:46 AM CLASSROOM MONITOR [facility] Blood STRUCTURE OF RIGHT UPPER LIMB / Unknown Venipuncture / Unknown 08/08/2024 6:23 AM CLASSROOM MONITOR 08/08/2024 6:45 AM CLASSROOM MONITOR Aris Thurman MD LAB - BLOOD ORDERABLES Final Result Performing Organization Address [facility] Co de Phone Number [facility] [address] * Creatinine (08/08/2024 6:23 AM CLASSROOM MONITOR) Creatinine 0.92 0.51 - 0.95 mg/dL 08/08/2024 7:04 AM CLASSROOM MONITOR [facility] GFR Estimate 79 >60 mL/min/1.7 3m2 08/08/2024 7:04 AM CLASSROOM MONITOR N LABORATORY Comment:eGFR calculated usin g 2020 CKD-EPI equation. Blood STRUCTURE OF RIGHT UPPER LIMB / Unknown Venipuncture / Unknown 08/08/2024 6:23 AM CLASSROOM MONITOR 08/08/2024 6:45 AM CLASSROOM MONITOR Miriam Melton APRN, CNP LAB - BLOOD ORDERABL ES Final Result Performing Organization Address [facility] de Phone Number [facility] [address] * Creatinine (08/07/2024 4:10 PM CLASSROOM MONITOR) Creatinine 0.95 0.51 - 0.95 mg/dL 08/07/2024 4:45 PM CLASSROOM MONITOR N LABORATORY GFR Estimate 76 >60 mL/min/1.7 3m2 08/07/2024 4:45 PM CLASSROOM MONITOR [facility] Comment:eGFR calculated usin g 2020 CKD-EPI equation. Blood STRUCTURE OF RIGHT UPPER LIMB / Unknown Venipuncture / Unknown 08/07/2024 4:10 PM CLASSROOM MONITOR 08/07/2024 4:24 PM CLASSROOM MONITOR Aris Thurman MD LAB - BLOOD ORDERABLES Final Result Performing Organization Address [facility] Co de Phone Number [facility] [address] * Platelet count (08/07/2024 4:10 PM CLASSROOM MONITOR) Platelet Count 314 150 - 450 10e3/uL 08/07/2024 4:31 PM CLASSROOM MONITOR [facility] Blood STRUCTURE OF RIGHT UPPER LIMB / Unknown Venipuncture / Unknown 08/07/2024 4:10 PM CLASSROOM MONITOR 08/07/2024 4:24 PM CLASSROOM MONITOR Aris Thurman MD LAB - BLOOD ORDERABLES Final Result Performing Organization Address [facility] de Phone Number [facility] [address] * POC US Guidance Needle Placement (08/07/2024 9:18 AM CLASSROOM MONITOR) Narrative [facility] - 08/07/2024 9:18 AM CLASSROOM MONITOR Ultrasound was performed as guidance to an anesthesia procedure. Click PACS images hyperlink below to view any stored images. For specific procedure details, view procedure note authored by anesthesia. Timo Elam MD IMG POCUS Final Resu lt Performing Organization Address [facility] de Phone Number [facility] * (ABNORMAL) Glucose by meter (08/07/2024 9:02 AM CLASSROOM MONITOR) GLUCOSE BY METER POCT 112(H) 70 - 99 mg/dL 08/07/2024 9:09 AM CLASSROOM MONITOR [facility] POCT RESULTS Blood, Capillary BLOOD SPECIMEN / Unknown 08/07/2024 9:02 AM CLASSROOM MONITOR 08/07/2024 9:09 AM CLASSROOM MONITOR Aris Thurman MD LAB - BEAKER POCT Final Result Performing Organization Address [facility] Co de Phone Number [facility] POCT RESULTS [address] [place] [address] * Lab Result - HIM Scan (07/31/2024 12:00 AM CLASSROOM MONITOR) 07/31/2024 us Provider Outside MH NON-BEAKER LAB TESTING Final Result * Xray Imaging - HIM Scan (07/31/2024 12:00 AM CLASSROOM MONITOR) Anatomical Region Laterality Modality Other 07/31/2024 us Provider Outside IMG DIAGNOSTIC IMAGING ORDERABL ES Final Result * EKG Cardiac - HIM Scan (07/31/2024 12:00 AM CLASSROOM MONITOR) 07/31/2024 us Provider Outside ECG ORDERABLES Final Result documented in this encounter Visit Diagnoses Diagnosis Morbid (severe) obesity due to excess calories (H)- Primary Morbid (severe) obesity due to excess calories (H) S/P gastric bypass Bariatric surgery status documented in this encounter Administered Medications Inactive Administered Medications - up to 3 most recent administrations Medication Order MAR Action Action Date Dose Rate Site acetaminophen (OFIRMEV) infusion 1,000 mg 1,000 mg, Intravenous, at 400 mL/hr, EVERY 6 HOURS, Administer over 15 Minutes, First dose on Wed08/07/24 at 1530, Use IV option only if patient is NPO or not able to take oral dose. Maximum acetaminophen dose from all sources = 75 mg/kg/day not to exceed 4 grams/day. $New Bag 08/07/2024 9:30 PM CLASSROOM MONITOR 1,000 mg 400 mL/hr $New Bag 08/07/2024 4:12 PM CLASSROOM MONITOR 1,000 mg 400 mL/hr acetaminophen (TYLENOL) oral liquid 975 mg 975 mg, Oral, EVERY 6 HOURS, First dose on Wed08/07/24 at 1530, Maximum acetaminophen dose from all sources=75 mg/kg/day not to exceed 4 grams/day. $Given 08/08/2024 8:55 AM CLASSROOM MONITOR 975 mg $Given 08/08/2024 3:38 AM CLASSROOM MONITOR 975 mg acetaminophen (TYLENOL) tablet 975 mg 975 mg, Oral, ONCE, On Wed08/07/24 at 0930, For 1 dose, Give 60 minutes prior to procedure. Maximum acetaminophen dose from all sources = 75 mg/kg/day not to exceed 4 grams/day., Pre-procedure $Given 08/07/2024 9:23 AM CLASSROOM MONITOR 975 mg acetaminophen (TYLENOL) tablet 975 mg 975 mg, Oral, EVERY 6 HOURS, First dose on Wed08/07/24 at 1530, All pills are to be cut to less than or equal to 1/4 inch. Maximum acetaminophen dose from all sources = 75 mg/kg/day not to exceed 4 grams/day. baclofen (LIORESAL) tablet 40 mg 40 mg, Oral, 3 TIMES DAILY, First dose on Wed08/08/24 at 0900 $Given 08/08/2024 2:26 PM CLASSROOM MONITOR 40 mg $Given 08/08/2024 8:45 AM CLASSROOM MONITOR 40 mg cetirizine (zyrTEC) tablet 10 mg 10 mg, Oral, DAILY, First dose on Wed08/08/24 at 0900 $Given 08/08/2024 8:44 AM CLASSROOM MONITOR 10 mg childrens multivitamin w/iron (FLINTSTONES COMPLETE) chewable tablet 1 tablet 1 tablet, Oral, 2 TIMES DAILY, First dose on Wed08/08/24 at 0900 $Given 08/08/2024 8:39 AM CLASSROOM MONITOR 1 tablet cyanocobalamin (VITAMIN B-12) sublingual tablet 1,000 mcg 1,000 mcg, Sublingual, DAILY, First dose on Wed08/08/24 at 0900 $Given 08/08/2024 8:40 AM CLASSROOM MONITOR 1,000 mcg dextrose 5% and 0.45% NaCl + KCl 20 mEq/L infusion at 125 mL/hr, Intravenous, CONTINUOUS, Starting on Wed08/07/24 at 1530, Until Wed08/08/24 at 1725 $New Bag 08/08/2024 1:32 AM CLASSROOM MONITOR 125 mL/hr Rate/Dose Verify 08/07/2024 7:39 PM CLASSROOM MONITOR 125 mL/ hr $New Bag 08/07/2024 4:36 PM CLASSROOM MONITOR 125 mL/hr 125 mL/hr doxazosin (CARDURA) tablet 1 mg 1 mg, Oral, AT BEDTIME, First dose on Wed08/07/24 at 2100, Tablets can be crushed and given via enteral route. $Given 08/07/2024 9:30 PM CLASSROOM MONITOR 1 mg DULoxetine (CYMBALTA) DR capsule 30 mg 30 mg, Oral, DAILY, First dose on Wed08/08/24 at 0900, Do not start until patient is on a full liquid diet. Open capsule and place into pudding or yogurt. Make a well in the pudding, put the beads into the well and cover it. Take entire medication in one bite and do not chew (beads can not be broken between teeth), swallow as a pudding/yogurt pill. $Given 08/08/2024 8:51 AM CLASSROOM MONITOR 30 mg DULoxetine (CYMBALTA) DR capsule 60 mg 60 mg, Oral, DAILY, First dose on Wed08/08/24 at 0900, Do not start until patient is on a full liquid diet. Open capsule and place into pudding or yogurt. Make a well in the pudding, put the beads into the well and cover it. Take entire medication in one bite and do not chew (beads can not be broken between teeth), swallow as a pudding/yogurt pill. $Given 08/08/2024 8:51 AM CLASSROOM MONITOR 60 mg enoxaparin ANTICOAGULANT (LOVENOX) injection 40 mg 40 mg, Subcutaneous, EVERY 24 HOURS, First dose on Wed08/07/24 at 2300, Administer enoxaparin (LOVENOX) 12 hours after the heparin PRE OP dose. HOLD if platelet count falls below 50% of baseline or less [id number]/ L and notify provider. $Given 08/07/2024 10:30 PM CLASSROOM MONITOR 40 mg famotidine (PEPCID) injection 20 mg 20 mg, Intravenous, Administer over 2 Minutes, SOFT METALS ENGRAVER HAND TO O.R., Starting on Wed08/07/24 at 0902, For 1 dose, Give unless patient already took any of the following at home the morning of surgery: famotidine (PEPCID), ranitidine (ZANTAC), cimetidine (TAGAMET), nizatadine (AXID). For ordered IV doses 1-20 mg, give IV Push diluted with 5-10 mL NS over a minimum of 2 minutes., Pre-procedure $Given 08/07/2024 9:34 AM CLASSROOM MONITOR 20 mg fentaNYL (PF) (SUBLIMAZE) injection 25 mcg 25 mcg, Intravenous, EVERY 5 MIN PRN, moderate pain, Give fentaNYL (SUBLIMAZE) first if HYDROmorphone (DILAUDID) also ordered., Starting on Wed08/07/24 at 1328, Administer fentaNYL (SUBLIMAZE) for acute pain control. Move to HYDROmorphone (DILAUDID): - IF patient has received up to 200 mcg of fentaNYL (SUBLIMAZE) OR - IF patient has received 2 doses of fentaNYL (SUBLIMAZE) AND continues to have pain score greater than or equal to six (6) or is unable to participate in post op recovery due to pain. Wait 5 minutes AFTER last fentaNYL (SUBLIMAZE) dose before administering HYDROmorphone (DILADUDID). Postop Anesthesia Phase I only. Notify Provider to assess for uncontrolled pain or analgesic side effects. DO NOT revert back to fentanyl (SUBLIMAZE) after administering HYDROmorphone (DILAUDID)., PACU $Given 08/07/2024 2:46 PM CLASSROOM MONITOR 25 mcg $Given 08/07/2024 2:25 PM CLASSROOM MONITOR 25 mcg fentaNYL (PF) (SUBLIMAZE) injection 25-100 mcg 25-100 mcg, Intravenous, EVERY 1 MIN PRN, other, procedural sedation, Starting on Wed08/07/24 at 0918, Starting and subsequent doses directed by Anesthesia Provider. Given under the direct supervision of the Anesthesia Provider., Pre-procedure $Given 08/07/2024 10:12 AM CLASSROOM MONITOR 100 mcg gabapentin (NEURONTIN) capsule 600 mg 600 mg, Oral, SOFT METALS ENGRAVER HAND TO O.R., Starting on Wed08/07/24 at 0902, For 1 dose, Give prior to procedure., Pre-procedure $Given 08/07/2024 9:23 AM CLASSROOM MONITOR 600 mg gabapentin (NEURONTIN) solution 250 mg 250 mg, Oral, EVERY 8 HOURS SCHEDULED, First dose on Wed08/07/24 at 1530 $Given 08/08/2024 2:27 PM CLASSROOM MONITOR 250 mg $Given 08/08/2024 6:40 AM CLASSROOM MONITOR 250 mg $Given 08/07/2024 9:30 PM CLASSROOM MONITOR 250 mg ketorolac (TORADOL) injection 15 mg 15 mg, Intravenous, ONCE, On Wed08/07/24 at 1330, For 1 dose, Can cause pain on injection. If ordered intravenously (IV) : administer through a running maintenance fluid over 1 minute followed by a flush. If patient complains of pain on injection, may dilute 15-30 mg in 5 mL and push over 1 to 2 minutes., PACU $Given 08/07/2024 1:47 PM CLASSROOM MONITOR 15 mg ketorolac (TORADOL) injection 15 mg 15 mg, Intravenous, EVERY 6 HOURS, First dose on Wed08/07/24 at 2000, For 5 doses, May continue use for up to 5 days MAX if order renewed. IF celecoxib (CELEBREX) was given pre-operatively, start ketorolac (TORADOL) 12 hours after celecoxib (CELEBREX) given. Can cause pain on injection. If ordered intravenously (IV) : administer through a running maintenance fluid over 1 minute followed by a flush. If patient complains of pain on injection, may dilute 15-30 mg in 5 mL and push over 1 to 2 minutes. $Given 08/08/2024 2:28 PM CLASSROOM MONITOR 15 mg $Given 08/08/2024 8:42 AM CLASSROOM MONITOR 15 mg $Given 08/08/2024 3:30 AM CLASSROOM MONITOR 15 mg lactated ringers (bag) irrigation SOLN PRN, Starting on Wed08/07/24 at 1230, Intra-procedure $Given 08/07/2024 12:30 PM CLASSROOM MONITOR 700 mLs Operative Site/Surgi marianela Site lactated ringers infusion at 100 mL/hr, Intravenous, CONTINUOUS, Pre-procedure, Starting on Wed08/07/24 at 0930, Until Wed08/07/24 at 1314 Restarted 08/07/2024 10:51 AM CLASSROOM MONITOR $New Bag 08/07/2024 9:32 AM CLASSROOM MONITOR 100 mL/hr lamoTRIgine (LaMICtal) tablet 150 mg 150 mg, Oral, DAILY, First dose on Wed08/08/24 at 0900 $Given 08/08/2024 8:49 AM CLASSROOM MONITOR 150 mg magnesium sulfate 4 g in 50 mL sterile water intermittent infusion 4 g, Intravenous, Administer over 240 Minutes, at 12.5 mL/hr, ONCE, On Wed08/07/24 at 0930, For 1 dose, Initiate in pre-op and continue infusion throughout intra-op and post-op for optimal pain management. If patient is ready for discharge, may discontinue infusion. Do NOT delay discharge to reach 4 gram maximum dose if patient meets PACU discharge., Pre-procedure $New Bag 08/07/2024 9:41 AM CLASSROOM MONITOR 4 g 12.5 mL/hr midazolam (VERSED) injection 0.5-2 mg 0.5-2 mg, Intravenous, Administer over 2 Minutes, EVERY 1 MIN PRN, other, procedural sedation, Starting on Wed08/07/24 at 0918, Starting and subsequent doses directed by Anesthesia Provider. Given under the direct supervision of the Anesthesia Provider. This drug may cause significant respiratory depression. Monitor respiratory status and vital signs carefully for 1 hour after each dose., Pre-procedure $Given 08/07/2024 10:12 AM CLASSROOM MONITOR 2 mg nalbuphine (NUBAIN) injection 5 mg 5 mg, Intravenous, EVERY 4 HOURS PRN, other, itching, Starting on Wed08/07/24 at 1523, If nalBUPHine (NUBAIN) ineffective, call Anesthesia for approval to begin a continuous nalOXone (NARCAN) infusion. If infusion is started, the duration of use is 8 hours. $Given 08/08/2024 4:33 AM CLASSROOM MONITOR 5 mg $Given 08/07/2024 4:44 PM CLASSROOM MONITOR 5 mg naloxone (NARCAN) injection 0.2 mg 0.2 mg, Intravenous, EVERY 2 MIN PRN, opioid reversal, Starting on Wed08/07/24 at 1535, Administer intravenous route when available and notify provider when administered. For unintended sedation or respiratory depression if all of the below criteria are met: ~ respiratory rate LESS than or EQUAL to 8. ~SaO2 less than 92% and or/end-tidal CO2 is greater than 50. ~ the patient is receiving an opioid, has unintended sedations assessed as RASS (-3), and is currently not on mechanical ventilation. RASS scale moderate (-3) is movement or eye opening to voice but no eye contact. Patient Monitoring Once the patient has demonstrated a response to the naloxone, continue to monitor respiratory rate, depth, oxygen saturation and end-tidal CO2 (if available) every 15 minutes x 2, then every 30 minutes x 2, then every 1 hour x 1 after each naloxone dose. Consider transfer to ICU if patient respiratory parameters have not improved after 4 naloxone doses. naloxone (NARCAN) injection 0.2 mg 0.2 mg, Intramuscular, EVERY 2 MIN PRN, opioid reversal, Starting on Wed08/07/24 at 1535, Administer intramuscular if an intravenous route is not available and notify provider when administered. For unintended sedation or respiratory depression if all of the below criteria are met: ~ respiratory rate LESS than or EQUAL to 8. ~SaO2 less than 92% and or/end-tidal CO2 is greater than 50. ~ the patient is receiving an opioid, has unintended sedations assessed as RASS (-3), and is currently not on mechanical ventilation. RASS scale moderate (-3) is movement or eye opening to voice but no eye contact. Patient Monitoring Once the patient has demonstrated a response to the naloxone, continue to monitor respiratory rate, depth, oxygen saturation and end-tidal CO2 (if available) every 15 minutes x 2, then every 30 minutes x 2, then every 1 hour x 1 after each naloxone dose. Consider transfer to ICU if patient respiratory parameters have not improved after 4 naloxone doses. naloxone (NARCAN) injection 0.4 mg 0.4 mg, Intravenous, EVERY 2 MIN PRN, opioid reversal, Starting on Wed08/07/24 at 1535, Administer intravenous route when available and notify provider when administered. For unintended sedation or respiratory depression if all of the below criteria are met: ~ respiratory rate LESS than or EQUAL to 8. ~ SaO2 less than 92% and or/end-tidal CO2 is greater than 50. ~ the patient is receiving an opioid, has unintended sedation assessed as RASS (-4) or (-5) and patient is currently not on mechanical ventilation. RASS scale (-4) is deep sedation with no response to voice but movement or eye opening to physical stimulation. RASS scale (-5) is unarousable. Patient Monitoring Once the patient has demonstrated a response to the naloxone, continue to monitor respiratory rate, depth, oxygen saturation and end-tidal CO2 (if available) every 15 minutes x 2, then every 30 minutes x 2, then every 1 hour x 1 after each naloxone dose. Consider transfer to ICU if patient respiratory parameters have not improved after 4 naloxone doses. naloxone (NARCAN) injection 0.4 mg 0.4 mg, Intramuscular, EVERY 2 MIN PRN, opioid reversal, Starting on Wed08/07/24 at 1535, Administer intramuscular if an intravenous route is not available and notify provider when administered. For unintended sedation or respiratory depression if all of the below criteria are met: ~ respiratory rate LESS than or EQUAL to 8. ~ SaO2 less than 92% and or/end-tidal CO2 is greater than 50. ~ the patient is receiving an opioid, has unintended sedation assessed as RASS (-4) or (-5) and patient is currently not on mechanical ventilation. RASS scale (-4) is deep sedation with no response to voice but movement or eye opening to physical stimulation. RASS scale (-5) is unarousable. Patient Monitoring Once the patient has demonstrated a response to the naloxone, continue to monitor respiratory rate, depth, oxygen saturation and end-tidal CO2 (if available) every 15 minutes x 2, then every 30 minutes x 2, then every 1 hour x 1 after each naloxone dose. Consider transfer to ICU if patient respiratory parameters have not improved after 4 naloxone doses. omeprazole (PriLOSEC) CR capsule 20 mg 20 mg, Oral, EVERY MORNING BEFORE BREAKFAST, First dose on Wed08/08/24 at 0730, Open capsule and mix intact pellets with 1 teaspoon clear liquid (ex. Jell-O or applesauce). $Given 08/08/2024 8:51 AM CLASSROOM MONITOR 20 mg ondansetron (ZOFRAN ODT) ODT tab 4 mg 4 mg, Oral, EVERY 6 HOURS PRN, nausea/vomiting - 1st line, Starting on Wed08/07/24 at 1523, This is Step 1 of nausea and vomiting management. If nausea not resolved in 15 minutes, go to Step 2 prochlorperazine (COMPAZINE). With dry hands, peel back foil backing and gently remove tablet. Do not push oral disintegrating tablet through foil backing. Administer immediately on tongue and oral disintegrating tablet dissolves in seconds, then swallow with saliva. Liquid not required. $Given 08/08/2024 8:23 AM CLASSROOM MONITOR 4 mg ondansetron (ZOFRAN) injection 4 mg 4 mg, Intravenous, EVERY 30 MIN PRN, nausea, Administer over 2-5 Minutes, Starting on Wed08/07/24 at 1328, For 2 doses, This is Step 1 of nausea and vomiting management. If nausea/vomiting not resolved in 15 minutes, then go to Step 2 dexamethasone (DECADRON) IV. MAX total dose = 8 mg, including OR dosing., PACU $Given 08/07/2024 1:57 PM CLASSROOM MONITOR 4 mg ondansetron (ZOFRAN) injection 4 mg 4 mg, Intravenous, SOFT METALS ENGRAVER HAND TO O.R., Administer over 2-5 Minutes, Starting on Wed08/07/24 at 0902, For 1 dose, Pre-procedure $Given 08/07/2024 9:34 AM CLASSROOM MONITOR 4 mg ondansetron (ZOFRAN) injection 4 mg 4 mg, Intravenous, EVERY 6 HOURS PRN, nausea/vomiting - 1st line, Administer over 2-5 Minutes, Starting on Wed08/07/24 at 1523, Give IF patient unable to tolerate oral medication. This is Step 1 of nausea and vomiting management. If nausea not resolved in 15 minutes, go to Step 2 prochlorperazine (COMPAZINE). $Given 08/07/2024 8:28 PM CLASSROOM MONITOR 4 mg sodium chloride (PF) 0.9% PF flush 3 mL 3 mL, Intracatheter, EVERY 8 HOURS, First dose on Wed08/07/24 at 1530, to lock peripheral IV dormant line $Given 08/08/2024 8:55 AM CLASSROOM MONITOR 3 mLs traMADol (ULTRAM) tablet 100 mg 100 mg, Oral, EVERY 6 HOURS PRN, moderate pain, pain, Starting on Wed08/07/24 at 1523, All pills are to be cut to less than or equal to inch. $Given 08/07/2024 6:49 PM CLASSROOM MONITOR 100 mg traZODone (DESYREL) tablet 100 mg 100 mg, Oral, AT BEDTIME, First dose on Wed08/07/24 at 2100 $Given 08/07/2024 11:00 PM CLASSROOM MONITOR 100 mg documented in this encounter Active and Recently Administered Medications Times are shown in CLASSROOM MONITOR. Scheduled Medication Order 08/06/2024 08/07/2024 08/08/2024 acetaminophen (OFIRMEV) infusion 1,000 mg(Linked Group 1) 1,000 mg, Intravenous, at 400 mL/hr, EVERY 6 HOURS, Administer over 15 Minutes, First dose on Wed08/07/24 at 1530, Use IV option only if patient is NPO or not able to take oral dose. Maximum acetaminophen dose from all sources = 75 mg/kg/day not to exceed 4 grams/day. 1612 ($New Bag - Provider: Danilo Rodriguez RN)2130 ($New Bag - Provider: Zahra Seals RN) 0338 (See Alternative - Provider: Zahra Seals RN)0855 (See Alternative - Provider: Danilo Rodriguez RN)1530 (Canceled Entry - Provider: Orders Generic Provider - Comment: Automatically canceled at discontinue of medication order) acetaminophen (TYLENOL) oral liquid 975 mg(Linked Group 1) 975 mg, Oral, EVERY 6 HOURS, First dose on Wed08/07/24 at 1530, Maximum acetaminophen dose from all sources=75 mg/kg/day not to exceed 4 grams/day. 1612 (See Alternative - Provider: Danilo Rodriguez RN)2129 (See Alternative - Provider: Zahra Seals RN) 0338 ($Given - Provider: Zahra Seals RN - Comment: Computer monitor in room not working)0855 ($Given - Provider: Danilo Rodriguez RN)1530 (Canceled Entry - Provider: Orders Generic Provider - Comment: Automatically canceled at discontinue of medication order) acetaminophen (TYLENOL) tablet 975 mg (COMPLETED) 975 mg, Oral, ONCE, On Wed08/07/24 at 0930, For 1 dose, Give 60 minutes prior to procedure. Maximum acetaminophen dose from all sources = 75 mg/kg/day not to exceed 4 grams/day., Pre-procedure 0923 ($Given - Provider: Emilia Minaya RN) acetaminophen (TYLENOL) tablet 975 mg(Linked Group 1) 975 mg, Oral, EVERY 6 HOURS, First dose on Wed08/07/24 at 1530, All pills are to be cut to less than or equal to 1/4 inch. Maximum acetaminophen dose from all sources = 75 mg/kg/day not to exceed 4 grams/day. 1612 (See Alternative - Provider: Danilo Rodriguez RN)2129 (See Alternative - Provider: Zahra Seals RN) 0338 (See Alternative - Provider: Zahra Seals RN)0855 (See Alternative - Provider: Danilo Rodriguez RN)1530 (Canceled Entry - Provider: Orders Generic Provider - Comment: Automatically canceled at discontinue of medication order) baclofen (LIORESAL) tablet 40 mg 40 mg, Oral, 3 TIMES DAILY, First dose on Wed08/08/24 at 0900 0845 ($Given - Provi eric: Danilo Rodriguez RN)1426 ($Given - Provider: Danilo Rodriguez RN) ceFAZolin Sodium (ANCEF) injection 3 g (COMPLETED) Routine, 3 g, Intravenous, PRE-OP/PRE-PROCEDURE, Starting on Wed08/07/24 at 0902, For 1 dose, Give first dose within 1 hour PRIOR to incision., Indications: Perioperative Pharmacoprophylaxis, Pre-procedure 1059 ($Given - Provider: Lazarus Mendez APRN CRNA) cetirizine (zyrTEC) tablet 10 mg 10 mg, Oral, DAILY, First dose on Wed08/08/24 at 0900 0844 ($Given - Provi eric: Danilo Rodriguez RN) childrens multivitamin w/iron (FLINTSTONES COMPLETE) chewable tablet 1 tablet 1 tablet, Oral, 2 TIMES DAILY, First dose on Wed08/08/24 at 0900 0839 ($Given - Provi eric: Danilo Rodriguez RN) cyanocobalamin (VITAMIN B-12) sublingual tablet 1,000 mcg 1,000 mcg, Sublingual, DAILY, First dose on Wed08/08/24 at 0900 0840 ($Given - Provi eric: Danilo Rodriguez RN) doxazosin (CARDURA) tablet 1 mg 1 mg, Oral, AT BEDTIME, First dose on Wed08/07/24 at 2100, Tablets can be crushed and given via enteral route. 2130 ($Given - Provider: Zahra Seals RN) DULoxetine (CYMBALTA) DR capsule 30 mg 30 mg, Oral, DAILY, First dose on Wed08/08/24 at 0900, Do not start until patient is on a full liquid diet. Open capsule and place into pudding or yogurt. Make a well in the pudding, put the beads into the well and cover it. Take entire medication in one bite and do not chew (beads can not be broken between teeth), swallow as a pudding/yogurt pill. 0851 ($Given - Provi eric: Danilo Rodriguez RN) DULoxetine (CYMBALTA) DR capsule 60 mg 60 mg, Oral, DAILY, First dose on Wed08/08/24 at 0900, Do not start until patient is on a full liquid diet. Open capsule and place into pudding or yogurt. Make a well in the pudding, put the beads into the well and cover it. Take entire medication in one bite and do not chew (beads can not be broken between teeth), swallow as a pudding/yogurt pill. 0851 ($Given - Provi eric: Danilo Rodriguez RN) enoxaparin ANTICOAGULANT (LOVENOX) injection 40 mg 40 mg, Subcutaneous, EVERY 24 HOURS, First dose on Wed08/07/24 at 2300, Administer enoxaparin (LOVENOX) 12 hours after the heparin PRE OP dose. HOLD if platelet count falls below 50% of baseline or less [id number]/ L and notify provider. 2229 ($Given - Provider: Zahra Seals RN) famotidine (PEPCID) injection 20 mg (COMPLETED) 20 mg, Intravenous, Administer over 2 Minutes, SOFT METALS ENGRAVER HAND TO O.R., Starting on Wed08/07/24 at 0902, For 1 dose, Give unless patient already took any of the following at home the morning of surgery: famotidine (PEPCID), ranitidine (ZANTAC), cimetidine (TAGAMET), nizatadine (AXID). For ordered IV doses 1-20 mg, give IV Push diluted with 5-10 mL NS over a minimum of 2 minutes., Pre-procedure 0934 ($Given - Provider: Emilia Minaya RN) gabapentin (NEURONTIN) capsule 600 mg (COMPLETED) 600 mg, Oral, SOFT METALS ENGRAVER HAND TO O.R., Starting on Wed08/07/24 at 0902, For 1 dose, Give prior to procedure., Pre-procedure 0923 ($Given - Provider: Emilia Minaya RN) gabapentin (NEURONTIN) solution 250 mg 250 mg, Oral, EVERY 8 HOURS SCHEDULED, First dose on Wed08/07/24 at 1530 1645 ($Given - Provider: Danilo Rodriguez RN)2130 ($Given - Provider: Zahra Seals RN) 0640 ($Given - Provider: Zahra Seals RN - Comment: Computer not working)1427 ($Given - Provider: Danilo Rodriguez, BRYAN) heparin ANTICOAGULANT injection 5,000 Units (COMPLETED) 5,000 Units, Subcutaneous, ONCE, On Wed08/07/24 at 0930, For 1 dose, ANESTHESIA WILL ADMINISTER subcutaneous heparin 5000 Units in operating room PRIOR to incision and ONLY AFTER any planned intrathecal procedure is complete. Do NOT give to patients having history of abnormal bleeding tendency or abnormal coagulation lab data. Do NOT give subcutaneous heparin to patients on a heparin drip High concentration heparin. Not for line flush or cath care., Pre-procedure 1046 ($Given - Provider: Lazarus Mendez APRN JUNIOR SALES ASSISTANT - Comment: sub cutaneous) ketorolac (TORADOL) injection 15 mg (COMPLETED) 15 mg, Intravenous, ONCE, On Wed08/07/24 at 1330, For 1 dose, Can cause pain on injection. If ordered intravenously (IV) : administer through a running maintenance fluid over 1 minute followed by a flush. If patient complains of pain on injection, may dilute 15-30 mg in 5 mL and push over 1 to 2 minutes., PACU 1347 ($Given - Provider: Allan Chapa RN) ketorolac (TORADOL) injection 15 mg (COMPLETED) 15 mg, Intravenous, EVERY 6 HOURS, First dose on Wed08/07/24 at 2000, For 5 doses, May continue use for up to 5 days MAX if order renewed. IF celecoxib (CELEBREX) was given pre-operatively, start ketorolac (TORADOL) 12 hours after celecoxib (CELEBREX) given. Can cause pain on injection. If ordered intravenously (IV) : administer through a running maintenance fluid over 1 minute followed by a flush. If patient complains of pain on injection, may dilute 15-30 mg in 5 mL and push over 1 to 2 minutes. 2003 (Not Given - Provider: Zahra Seals RN - Reason: Other - Comment: Time changed to minimize waking during the night)2130 ($Given - Provider: Zahra Seals RN) 0330 ($Given - Provider: Zahra Seals RN)0842 ($Given - Provider: Danilo Rodriguez, BRYAN)1428 ($Given - Provider: Danilo Rodriguez, BRYAN) lamoTRIgine (LaMICtal) tablet 150 mg 150 mg, Oral, DAILY, First dose on Wed08/08/24 at 0900 0849 ($Given - Provi eric: Danilo Rodriguez RN) magnesium sulfate 4 g in 50 mL sterile water intermittent infusion (COMPLETED) 4 g, Intravenous, Administer over 240 Minutes, at 12.5 mL/hr, ONCE, On Wed08/07/24 at 0930, For 1 dose, Initiate in pre-op and continue infusion throughout intra-op and post-op for optimal pain management. If patient is ready for discharge, may discontinue infusion. Do NOT delay discharge to reach 4 gram maximum dose if patient meets PACU discharge., Pre-procedure 0941 ($New Bag - Provider: Emilia Minaya, BRYAN) metoprolol tartrate (LOPRESSOR) tablet 50 mg 50 mg, Oral, 2 TIMES DAILY, First dose on Wed08/08/24 at 0900, Tablets can be crushed and given via enteral route. 0843 (Not Given - Provider: Danilo Rodriguez RN - Reason: Contraindicated) omeprazole (PriLOSEC) CR capsule 20 mg 20 mg, Oral, EVERY MORNING BEFORE BREAKFAST, First dose on Wed08/08/24 at 0730, Open capsule and mix intact pellets with 1 teaspoon clear liquid (ex. Jell-O or applesauce). 0851 ($Given - Provi eric: Danilo Rodriguez RN) ondansetron (ZOFRAN) injection 4 mg (COMPLETED) 4 mg, Intravenous, SOFT METALS ENGRAVER HAND TO O.R., Administer over 2-5 Minutes, Starting on Wed08/07/24 at 0902, For 1 dose, Pre-procedure 0934 ($Given - Provider: Emilia Minaya, BRYAN) sodium chloride (PF) 0.9% PF flush 3 mL 3 mL, Intracatheter, EVERY 8 HOURS, First dose on Wed08/07/24 at 1530, to lock peripheral IV dormant line 1638 (Not Given - Provider: Danilo Rodriguez RN - Reason: IV Infusing)2130 (Not Given - Provider: Zahra Seals RN - Reason: IV Infusing) 0855 ($Given - Provider: Danilo Rodriguez RN)1530 (Canceled Entry - Provider: Orders Generic Provider - Comment: Automatically canceled at discontinue of medication order) traZODone (DESYREL) tablet 100 mg 100 mg, Oral, AT BEDTIME, First dose on Wed08/07/24 at 2100 2300 ($Given - Provider: Zahra Seals, RN) Continuous Medication Order 08/06/2024 08/07/2024 08/08/2024 dextrose 5% and 0.45% NaCl + KCl 20 mEq/L infusion at 125 mL/hr, Intravenous, CONTINUOUS, Starting on Wed08/07/24 at 1530, Until Wed08/08/24 at 1725 1636 ($New Bag - Provider: Danilo Rodriguez, RN)1638 (Not Given - Provider: Danilo Rodriguez RN - Reason: Contraindicated)1939 (Rate/Dose Verify - Provider: Zahra Seals RN) 0132 ($New Bag - Provider: Gonsalo Bush, BRYAN) lactated ringers infusion (CANCELED) at 100 mL/hr, Intravenous, CONTINUOUS, Pre-procedure, Starting on Wed08/07/24 at 0930, Until Wed08/07/24 at 1314 0932 ($New Bag - Provider: Emilia Minaya RN)1050 (Paused - Provider: Lazarus Mendez APRN CRNA - Comment: Switch to gravity)1051 (Restarted - Provider: Lazarus Mendez APRN CRNA)1220 (Stopped - Provider: Lazarus Mendez APRN CRNA) PRN Medication Order 08/06/2024 08/07/2024 08/08/2024 BUPivacaine 0.25 % - EPINEPHrine 1:200,000 (PF) injection (CANCELED) PRN, Starting on Wed08/07/24 at 1125, Intra-procedure 1125 ($Given - Provider: Aris Thurman MD) enalaprilat (VASOTEC) injection 1.25 mg 1.25 mg, Intravenous, EVERY 6 HOURS PRN, high blood pressure, greater than 170/100 mmHg, Administer over 5 Minutes, Starting on Wed08/07/24 at 1523 fentaNYL (PF) (SUBLIMAZE) injection 25 mcg (CANCELED) 25 mcg, Intravenous, EVERY 5 MIN PRN, moderate pain, Give fentaNYL (SUBLIMAZE) first if HYDROmorphone (DILAUDID) also ordered., Starting on Wed08/07/24 at 1328, Administer fentaNYL (SUBLIMAZE) for acute pain control. Move to HYDROmorphone (DILAUDID): - IF patient has received up to 200 mcg of fentaNYL (SUBLIMAZE) OR - IF patient has received 2 doses of fentaNYL (SUBLIMAZE) AND continues to have pain score greater than or equal to six (6) or is unable to participate in post op recovery due to pain. Wait 5 minutes AFTER last fentaNYL (SUBLIMAZE) dose before administering HYDROmorphone (DILADUDID). Postop Anesthesia Phase I only. Notify Provider to assess for uncontrolled pain or analgesic side effects. DO NOT revert back to fentanyl (SUBLIMAZE) after administering HYDROmorphone (DILAUDID)., PACU 1425 ($Given - Provider: Allan Chapa, BRYAN)1446 ($Given - Provider: Allan Chapa RN) fentaNYL (PF) (SUBLIMAZE) injection 25-100 mcg (CANCELED) 25-100 mcg, Intravenous, EVERY 1 MIN PRN, other, procedural sedation, Starting on Wed08/07/24 at 0918, Starting and subsequent doses directed by Anesthesia Provider. Given under the direct supervision of the Anesthesia Provider., Pre-procedure 1012 ($Given - Provider: Emilia Minaya RN) hyoscyamine (LEVSIN/SL) sublingual tablet 125 mcg 125 mcg, Sublingual, EVERY 4 HOURS PRN, cramping, spasms, Starting on Wed08/07/24 at 1523, Can be start when patient is still NPO lactated ringers (bag) irrigation SOLN PRN, Starting on Wed08/07/24 at 1230, Intra-procedure 1230 ($Given - Provider: Aris Thurman MD) lidocaine (LMX4) cream Topical, EVERY 1 HOUR PRN, pain, with VAD insertion, Starting on Wed08/07/24 at 1523, Apply at least 30 minutes prior to VAD insertion in divided doses as needed for size of site for insertion. MAX Dose: 2.5 g ( of 5 g tube) Do NOT give if patient has a history of allergy to any local anesthetic or any julio product. Do NOT use both lidocaine intradermal/subcutaneous injection and the lidocaine cream on the same site. lidocaine 1 % 0.1-1 mL 0.1-1 mL, Other, EVERY 1 HOUR PRN, mild pain with VAD insertion, Starting on Wed08/07/24 at 1523, MAX dose 1 mL subcutaneous OR intradermal along the side of the vein in divided doses as needed for VAD insertion. Do NOT give if patient has a history of allergy to any local anesthetic or any julio product. Do NOT use both lidocaine intradermal/subcutaneous injection and the lidocaine cream on the same site. LORazepam (ATIVAN) injection 0.5-1 mg 0.5-1 mg, Intravenous, EVERY 6 HOURS PRN, anxiety, sleep, spasms, Starting on Wed08/07/24 at 1523, IV Route: Dilute with equal volume NS prior to use. This drug may cause significant respiratory depression. Monitor respiratory status and vital signs carefully for 1 hour after each dose. midazolam (VERSED) injection 0.5-2 mg (CANCELED) 0.5-2 mg, Intravenous, Administer over 2 Minutes, EVERY 1 MIN PRN, other, procedural sedation, Starting on Wed08/07/24 at 0918, Starting and subsequent doses directed by Anesthesia Provider. Given under the direct supervision of the Anesthesia Provider. This drug may cause significant respiratory depression. Monitor respiratory status and vital signs carefully for 1 hour after each dose., Pre-procedure 1012 ($Given - Provider: Emilia Minaya RN) nalbuphine (NUBAIN) injection 5 mg 5 mg, Intravenous, EVERY 4 HOURS PRN, other, itching, Starting on Wed08/07/24 at 1523, If nalBUPHine (NUBAIN) ineffective, call Anesthesia for approval to begin a continuous nalOXone (NARCAN) infusion. If infusion is started, the duration of use is 8 hours. 1644 ($Given - Provider: Danilo Rodriguez RN) 0433 ($Given - Provider: Zahra Seals RN) naloxone (NARCAN) injection 0.2 mg(Linked Group 2) 0.2 mg, Intravenous, EVERY 2 MIN PRN, opioid reversal, Starting on Wed08/07/24 at 1535, Administer intravenous route when available and notify provider when administered. For unintended sedation or respiratory depression if all of the below criteria are met: ~ respiratory rate LESS than or EQUAL to 8. ~SaO2 less than 92% and or/end-tidal CO2 is greater than 50. ~ the patient is receiving an opioid, has unintended sedations assessed as RASS (-3), and is currently not on mechanical ventilation. RASS scale moderate (-3) is movement or eye opening to voice but no eye contact. Patient Monitoring Once the patient has demonstrated a response to the naloxone, continue to monitor respiratory rate, depth, oxygen saturation and end-tidal CO2 (if available) every 15 minutes x 2, then every 30 minutes x 2, then every 1 hour x 1 after each naloxone dose. Consider transfer to ICU if patient respiratory parameters have not improved after 4 naloxone doses. naloxone (NARCAN) injection 0.2 mg(Linked Group 2) 0.2 mg, Intramuscular, EVERY 2 MIN PRN, opioid reversal, Starting on Wed08/07/24 at 1535, Administer intramuscular if an intravenous route is not available and notify provider when administered. For unintended sedation or respiratory depression if all of the below criteria are met: ~ respiratory rate LESS than or EQUAL to 8. ~SaO2 less than 92% and or/end-tidal CO2 is greater than 50. ~ the patient is receiving an opioid, has unintended sedations assessed as RASS (-3), and is currently not on mechanical ventilation. RASS scale moderate (-3) is movement or eye opening to voice but no eye contact. Patient Monitoring Once the patient has demonstrated a response to the naloxone, continue to monitor respiratory rate, depth, oxygen saturation and end-tidal CO2 (if available) every 15 minutes x 2, then every 30 minutes x 2, then every 1 hour x 1 after each naloxone dose. Consider transfer to ICU if patient respiratory parameters have not improved after 4 naloxone doses. naloxone (NARCAN) injection 0.4 mg(Linked Group 2) 0.4 mg, Intravenous, EVERY 2 MIN PRN, opioid reversal, Starting on Wed08/07/24 at 1535, Administer intravenous route when available and notify provider when administered. For unintended sedation or respiratory depression if all of the below criteria are met: ~ respiratory rate LESS than or EQUAL to 8. ~ SaO2 less than 92% and or/end-tidal CO2 is greater than 50. ~ the patient is receiving an opioid, has unintended sedation assessed as RASS (-4) or (-5) and patient is currently not on mechanical ventilation. RASS scale (-4) is deep sedation with no response to voice but movement or eye opening to physical stimulation. RASS scale (-5) is unarousable. Patient Monitoring Once the patient has demonstrated a response to the naloxone, continue to monitor respiratory rate, depth, oxygen saturation and end-tidal CO2 (if available) every 15 minutes x 2, then every 30 minutes x 2, then every 1 hour x 1 after each naloxone dose. Consider transfer to ICU if patient respiratory parameters have not improved after 4 naloxone doses. naloxone (NARCAN) injection 0.4 mg(Linked Group 2) 0.4 mg, Intramuscular, EVERY 2 MIN PRN, opioid reversal, Starting on Wed08/07/24 at 1535, Administer intramuscular if an intravenous route is not available and notify provider when administered. For unintended sedation or respiratory depression if all of the below criteria are met: ~ respiratory rate LESS than or EQUAL to 8. ~ SaO2 less than 92% and or/end-tidal CO2 is greater than 50. ~ the patient is receiving an opioid, has unintended sedation assessed as RASS (-4) or (-5) and patient is currently not on mechanical ventilation. RASS scale (-4) is deep sedation with no response to voice but movement or eye opening to physical stimulation. RASS scale (-5) is unarousable. Patient Monitoring Once the patient has demonstrated a response to the naloxone, continue to monitor respiratory rate, depth, oxygen saturation and end-tidal CO2 (if available) every 15 minutes x 2, then every 30 minutes x 2, then every 1 hour x 1 after each naloxone dose. Consider transfer to ICU if patient respiratory parameters have not improved after 4 naloxone doses. ondansetron (ZOFRAN ODT) ODT tab 4 mg(Linked Group 3) 4 mg, Oral, EVERY 6 HOURS PRN, nausea/vomiting - 1st line, Starting on Wed08/07/24 at 1523, This is Step 1 of nausea and vomiting management. If nausea not resolved in 15 minutes, go to Step 2 prochlorperazine (COMPAZINE). With dry hands, peel back foil backing and gently remove tablet. Do not push oral disintegrating tablet through foil backing. Administer immediately on tongue and oral disintegrating tablet dissolves in seconds, then swallow with saliva. Liquid not required. 2027 (See Alternative - Provider: Zahra Seals RN) 0823 ($Given - Provider: Danilo Rodriguez, BRYAN) ondansetron (ZOFRAN) injection 4 mg (CANCELED)(Linked Group 4) 4 mg, Intravenous, EVERY 30 MIN PRN, nausea, Administer over 2-5 Minutes, Starting on Wed08/07/24 at 1328, For 2 doses, This is Step 1 of nausea and vomiting management. If nausea/vomiting not resolved in 15 minutes, then go to Step 2 dexamethasone (DECADRON) IV. MAX total dose = 8 mg, including OR dosing., PACU 1357 ($Given - Provider: Allan Chapa RN) ondansetron (ZOFRAN) injection 4 mg(Linked Group 3) 4 mg, Intravenous, EVERY 6 HOURS PRN, nausea/vomiting - 1st line, Administer over 2-5 Minutes, Starting on Wed08/07/24 at 1523, Give IF patient unable to tolerate oral medication. This is Step 1 of nausea and vomiting management. If nausea not resolved in 15 minutes, go to Step 2 prochlorperazine (COMPAZINE). 2027 ($Given - Provider: Zahra Seals RN - Comment: Computer not working in room and alternative computer on wheels not working) 0823 (See Alternative - Provider: Danilo Rodriguez RN) sodium chloride (PF) 0.9% PF flush 3 mL 3 mL, Intracatheter, EVERY 1 MIN PRN, line flush, other, to ensure patency or to lock dormant line, Starting on Wed08/07/24 at 1523 traMADol (ULTRAM) tablet 100 mg 100 mg, Oral, EVERY 6 HOURS PRN, moderate pain, pain, Starting on Wed08/07/24 at 1523, All pills are to be cut to less than or equal to inch. 1849 ($Given - Provider: Danilo Rodriguez RN) Linked Groups Order Group 1: acetaminophen (OFIRMEV) infusion 1,000 mgJump to med 1,000 mg, Intravenous, at 400 mL/hr, EVERY 6 HOURS, Administer over 15 Minutes, First dose on Wed08/07/24 at 1530, Use IV option only if patient is NPO or not able to take oral dose. Maximum acetaminophen dose from all sources = 75 mg/kg/day not to exceed 4 grams/day. Or acetaminophen (TYLENOL) tablet 975 mgJump to med 975 mg, Oral, EVERY 6 HOURS, First dose on Wed08/07/24 at 1530, All pills are to be cut to less than or equal to 1/4 inch. Maximum acetaminophen dose from all sources = 75 mg/kg/day not to exceed 4 grams/day. Or acetaminophen (TYLENOL) oral liquid 975 mgJump to med 975 mg, Oral, EVERY 6 HOURS, First dose on Wed08/07/24 at 1530, Maximum acetaminophen dose from all sources=75 mg/kg/day not to exceed 4 grams/day. Group 2: naloxone (NARCAN) injection 0.2 mgJump to med 0.2 mg, Intravenous, EVERY 2 MIN PRN, opioid reversal, Starting on Wed08/07/24 at 1535, Administer intravenous route when available and notify provider when administered. For unintended sedation or respiratory depression if all of the below criteria are met: ~ respiratory rate LESS than or EQUAL to 8. ~SaO2 less than 92% and or/end-tidal CO2 is greater than 50. ~ the patient is receiving an opioid, has unintended sedations assessed as RASS (-3), and is currently not on mechanical ventilation. RASS scale moderate (-3) is movement or eye opening to voice but no eye contact. Patient Monitoring Once the patient has demonstrated a response to the naloxone, continue to monitor respiratory rate, depth, oxygen saturation and end-tidal CO2 (if available) every 15 minutes x 2, then every 30 minutes x 2, then every 1 hour x 1 after each naloxone dose. Consider transfer to ICU if patient respiratory parameters have not improved after 4 naloxone doses. Or naloxone (NARCAN) injection 0.4 mgJump to med 0.4 mg, Intravenous, EVERY 2 MIN PRN, opioid reversal, Starting on Wed08/07/24 at 1535, Administer intravenous route when available and notify provider when administered. For unintended sedation or respiratory depression if all of the below criteria are met: ~ respiratory rate LESS than or EQUAL to 8. ~ SaO2 less than 92% and or/end-tidal CO2 is greater than 50. ~ the patient is receiving an opioid, has unintended sedation assessed as RASS (-4) or (-5) and patient is currently not on mechanical ventilation. RASS scale (-4) is deep sedation with no response to voice but movement or eye opening to physical stimulation. RASS scale (-5) is unarousable. Patient Monitoring Once the patient has demonstrated a response to the naloxone, continue to monitor respiratory rate, depth, oxygen saturation and end-tidal CO2 (if available) every 15 minutes x 2, then every 30 minutes x 2, then every 1 hour x 1 after each naloxone dose. Consider transfer to ICU if patient respiratory parameters have not improved after 4 naloxone doses. Or naloxone (NARCAN) injection 0.2 mgJump to med 0.2 mg, Intramuscular, EVERY 2 MIN PRN, opioid reversal, Starting on Wed08/07/24 at 1535, Administer intramuscular if an intravenous route is not available and notify provider when administered. For unintended sedation or respiratory depression if all of the below criteria are met: ~ respiratory rate LESS than or EQUAL to 8. ~SaO2 less than 92% and or/end-tidal CO2 is greater than 50. ~ the patient is receiving an opioid, has unintended sedations assessed as RASS (-3), and is currently not on mechanical ventilation. RASS scale moderate (-3) is movement or eye opening to voice but no eye contact. Patient Monitoring Once the patient has demonstrated a response to the naloxone, continue to monitor respiratory rate, depth, oxygen saturation and end-tidal CO2 (if available) every 15 minutes x 2, then every 30 minutes x 2, then every 1 hour x 1 after each naloxone dose. Consider transfer to ICU if patient respiratory parameters have not improved after 4 naloxone doses. Or naloxone (NARCAN) injection 0.4 mgJump to med 0.4 mg, Intramuscular, EVERY 2 MIN PRN, opioid reversal, Starting on Wed08/07/24 at 1535, Administer intramuscular if an intravenous route is not available and notify provider when administered. For unintended sedation or respiratory depression if all of the below criteria are met: ~ respiratory rate LESS than or EQUAL to 8. ~ SaO2 less than 92% and or/end-tidal CO2 is greater than 50. ~ the patient is receiving an opioid, has unintended sedation assessed as RASS (-4) or (-5) and patient is currently not on mechanical ventilation. RASS scale (-4) is deep sedation with no response to voice but movement or eye opening to physical stimulation. RASS scale (-5) is unarousable. Patient Monitoring Once the patient has demonstrated a response to the naloxone, continue to monitor respiratory rate, depth, oxygen saturation and end-tidal CO2 (if available) every 15 minutes x 2, then every 30 minutes x 2, then every 1 hour x 1 after each naloxone dose. Consider transfer to ICU if patient respiratory parameters have not improved after 4 naloxone doses. Group 3: ondansetron (ZOFRAN ODT) ODT tab 4 mgJump to med 4 mg, Oral, EVERY 6 HOURS PRN, nausea/vomiting - 1st line, Starting on Wed08/07/24 at 1523, This is Step 1 of nausea and vomiting management. If nausea not resolved in 15 minutes, go to Step 2 prochlorperazine (COMPAZINE). With dry hands, peel back foil backing and gently remove tablet. Do not push oral disintegrating tablet through foil backing. Administer immediately on tongue and oral disintegrating tablet dissolves in seconds, then swallow with saliva. Liquid not required. Or ondansetron (ZOFRAN) injection 4 mgJump to med 4 mg, Intravenous, EVERY 6 HOURS PRN, nausea/vomiting - 1st line, Administer over 2-5 Minutes, Starting on Wed08/07/24 at 1523, Give IF patient unable to tolerate oral medication. This is Step 1 of nausea and vomiting management. If nausea not resolved in 15 minutes, go to Step 2 prochlorperazine (COMPAZINE). Group 4: ondansetron (ZOFRAN ODT) ODT tab 4 mg (CANCELED) 4 mg, Oral, EVERY 30 MIN PRN, nausea, Starting on Wed08/07/24 at 1328, For 2 doses, Administer if NO vascular access present. This is Step 1 of nausea and vomiting management. If nausea/vomiting not resolved in 15 minutes, go to Step 2 dexamethasone (DECADRON) IV. MAX total dose = 8 mg, including OR dosing. With dry hands, peel back foil backing and gently remove tablet. Do not push oral disintegrating tablet through foil backing. Administer immediately on tongue and oral disintegrating tablet dissolves in seconds, then swallow with saliva. Liquid not required., PACU Or ondansetron (ZOFRAN) injection 4 mg (CANCELED)Jump to med 4 mg, Intravenous, EVERY 30 MIN PRN, nausea, Administer over 2-5 Minutes, Starting on Wed08/07/24 at 1328, For 2 doses, This is Step 1 of nausea and vomiting management. If nausea/vomiting not resolved in 15 minutes, then go to Step 2 dexamethasone (DECADRON) IV. MAX total dose = 8 mg, including OR dosing., PACU documented in this encounter Additional Health Concerns Assessment Noted Time PHQ-9 Depression Total Score: 2 05/07/20 21 11:37 AM CDT documented as of this encounter Care Teams Senior Architect Relationship Specialty Start Date End Date Herson Rhodes MD PCP - General 06/02/11 [facility] [id number] [place] [address] Assigned PCP 12/14/[address] [place] [id number] Registered Dietitian Dietitian, Registered 06/09/24 Dung Alva, PhD [employer] [address] [id number] Assigned Behavioral Health Provider 06/14/24 Aris Thurman MD [address] [place] [id number] Assigned Surgical Provider 07/15/24 Miriam Melton APRN C[facility] MA[employer]GER [address] [place] [id number] Nurse Practitioner Surgery 07/19/24 documented as of this encounter
--- OUTSIDE RECORDS SUMMARY | 2024-09-02 08:27 | XMS_ITS | Encounter Summary ---
Author Organization [facility] Address [address] [place] [id number] Care Team Providers Care Mechanical Process Engineer Name Role Phone Herson Rhodes MD Primary Care Provider [facility] Unavailabl e Hien Flood RD Unavailable [phone] Dung Alva PhD Unavailable Aris Thurman MD Unavailable [phone] Miriam Melton APRN CO FOUNDER AND PRESIDENT Unavailable Reason for Visit * Auth/Cert Specialty Diagnoses / Procedures Referred By Abdirizak trimble Referred To Contact Surgery Diagnoses Morbid obesity (H) Duodenal stricture Morbid obesity (H) [E66.01] Duodenal stricture [K31.5] Procedures WV REMOVAL STOMACH,SRIDHAR-EN-Y WV REMV STOMACH,PART,DISTAL,SRIDHAR-EN-Y WV LAPAROSCOPIC GASTRIC RESTRICTIVE PX, W/GASTRIC BYPASS/ SRIDHAR-EN-Y, < 150CM ZZC GASTRIC BYPASS,OBESE<100CM SRIDHAR-EN-Y CREATION, GASTRIC BYPASS, SRIDHAR-EN-Y, LAPAROSCOPIC [address] [address] Phone: tel: Referral ID Status Reason Start Date Expiration Date Visits Re quested Visits Authorized [id number] 1 1 Encounter Details Date Type Department Care Team ([facility] Contact Info) Description 08/07/2024 10:09 AM SENIOR BENEFITS SPECIALIST - 08/07/2024 12:59 PM SENIOR BENEFITS SPECIALIST Surgery [facility] [address] [place] [phone] Aris Thurman MD [address] [place] [id number] CREATION, GASTRIC BYPASS, SRIDHAR-EN-Y, LAPAROSCOPIC Surgery Details Date/Time Status Location OR Service Patient Class Case Class Case Type Trauma Case? 08/07/2024 10:09 AM Posted [facility] [place] [facility] [place] 08 Bariatric Surgery Admit Elective Panel 1 Procedure LRB Anes Op Region Wound Class Comments CREATION, GASTRIC BYPASS, SRIDHAR-EN-Y, LAPAROSCOPIC N/A General with Block Abdomen II-Clean Contaminated Surgeon Surgeon Role Service Panel Aris Thurman MD Primary Bariatric 1 Special Needs BMI 49.09Staff assist documented in this encounter Social History Tobacco Use Types Packs/Day Years [...] CDT Legal Sex Female 5:06 AM SENIOR BENEFITS SPECIALIST Gender Identity Female 04/04/2021 10:28 PM CDT Sexual Orientation Straight 04/04/2021 10 :28 PM CDT documented as of this encounter Last Filed Vital Signs Vital Sign Reading Time Taken Comments Blood Pressure 160/92 08/07/2024 10:40 AM SENIOR BENEFITS SPECIALIST Pulse 68 08/07/2024 10:40 AM SENIOR BENEFITS SPECIALIST Temperature 36.8 C (98.2 F) 08/07/2024 8:55 AM SENIOR BENEFITS SPECIALIST Respiratory Rate 24 08/07/2024 10:4 0 AM SENIOR BENEFITS SPECIALIST Oxygen Saturation 100% 08/07/2024 10: 40 AM SENIOR BENEFITS SPECIALIST Inhaled Oxygen Concentration - - Weight 130.5 kg (287 lb 9.6 oz) 08/07/2024 8:55 AM SENIOR BENEFITS SPECIALIST Height - - Body Mass Index 47.86 07/19/2024 2:41 PM SENIOR BENEFITS SPECIALIST documented in this encounter Discharge Summaries * [...] surgery or until you meet with the drafter topographical, you will be on a full liquid [...] of 2 weeks. Miriam Melton APRN CNP [phone] [facility] OR BENEFITS SPECIALIST documented in this encounter Discharge Instructions * Discharge Instructions* Miriam Melton APRN CNP - 08/08/2024 10:16 AM SENIOR BENEFITS SPECIALIST If you are worried about whether or not you need to be seen or if something is wrong, please call your bariatric nurse line at [phone] or the bariatric clinic at [phone]. If you need to be seen in the emergency department for any reason in the next 30 days, please return to [facility]. The bariatric team should be involved in your care/diet even if the problem is unrelated to your surgery. OR BENEFITS SPECIALIST documented in this encounter Medications at Time [...] start taking after surgery until advised by drafter topographical in post-op class. 08/08/2024 cetirizine (ZYRTEC) 10 [...] 08/10/2024 fluticasone (FLONASE) 50 MCG/ACT nasal spray Woden 2 sprays into both nostrils daily as [...] start taking after surgery until advised by drafter topographical in post-op class. 08/08/2024 Acetaminophen (TYLENOL DISSOLVE [...] encounter Progress Notes * Miriam Melton APRN CO FOUNDER AND PRESIDENT - 08/08/2024 1:50 PM CST Bariatric Surgery [...] GFR Estimate 08/08/2024 79 Hold Specimen 08/08/2024 [facility] Assessment/Plan: Patient is progressing well after surgery. [...] any reason, she needs to return to [facility]. Pt is scheduled to follow up at Bariatric Clinic next week. Patient verbalized understanding of theplan. Bariatric nurse clinician will call her in a couple days when she gets home to check in with her. Greater than 45 minutes were spent with this patient with more than 50% of that time spent on education. Miriam Melton CNP [phone] [facility] General and Bariatric Surgery OR BENEFITS SPECIALIST * Aris Thurman MD - 08/08/2024 9:13 [...] ready for discharge today. Aris Thurman MD [facility] Surgeons [phone] OR BENEFITS SPECIALIST * Zahra Seals RN - 08/08/2024 6:41 [...] 400 mL Bladder Scan: 289 mL Pain: 10 Incision: Scant drainage but intact Nausea: Resolved with anti-emetic Activity: SBA in room Incentive Spirometry: Abdominal Binder: On Zahra Seals RN 08/08/2024 6:41 AM OR BENEFITS SPECIALIST * Zahra Seals RN - 08/08/2024 12:22 [...] Output: 0 Bladder Scan: 331 mL Pain: 3/10 Incision: Scant drainage Nausea: Yes. Administered IV Ondansetron Activity: SBA Incentive Spirometry: Abdominal Binder: On Zahra Seals RN 08/08/2024 12:23 AM OR BENEFITS SPECIALIST documented in this encounter H&P Notes * [...] GASTRIC BIOPSIES; Surgeon: Kashif Su MD; Location: [facility] [place] LACEWORKER SURGERY exc endometrial cysts HYSTERECTOMY, PAP STILL [...] DORSAL COLUMN 06/02/2011 Procedure:INSERT STIMULATOR DORSAL COLUMN; Major Aidetronic Spinal Cord Stimulator Revision; Surgeon:AJ MITCHELL; Location: [...] N/A 04/11/2019 Procedure: LAPAROSCOPY, USING CO2 LASER (TRANSONE TECH); Surgeon: Alan Shah MD; Location: OR [...] cutoff: Nicotine 15 ng/mL Cotinine 15 ng/mL 5-AL-Ywkwmpdi 50 ng/mL Anabasine 5 ng/mL Component Ref [...] for future dilations if needed. Aris Thurman [facility]; surgeons [phone] OR BENEFITS SPECIALIST documented in this encounter Miscellaneous Notes * [...] instructions Outcome: Shift Intake:600 Output:775 Bladder Scan: Pain:3/10 Incision: C_D_I Nausea:x1 with Zofran given Activity: walked 200 FT Incentive Spirometry: 1000 Abdominal Binder: In Place Danilo Rodriguez RN 08/08/2024 3:27 PM OR BENEFITS SPECIALIST * Plan of Care - Danilo Rodriguez [...] Reviewed With: patient Overall Patient Progress: improving OR BENEFITS SPECIALIST * Op Note - Aris Thurman MD [...] which was then attached to the iron physician/internist to stabilize and retract the left lobe [...] aspect of the gastric pouch. A 32 Hungarian VISI-G tube wasadvanced on into the gastric [...] a running 2-0 Polysorb suture.. The 32 Hungarian VISI- G tubewas then advanced down through [...] Thurman MD Date: 08/07/2024 Time: 12:49 PM OR BENEFITS SPECIALIST * Pharmacy-Admission Medication History - French Bentley RPH - 08/07/2024 9:48 AM CST Pharmacist Admission Medication History Admission medication history is complete. The information provided in this note is only as accurateas the sources available at the time of the update. Information Source(s): Patient, Clinic records, and [facility] via in-person Pertinent Information: none Allergies reviewed with patient and updates made in EHR: yes Medication History Completed By: French Bentley RPH 08/07/2024 9:48 AM NEUROLOGIST Med List Medication Sig Last Dose/Taking acetaminophen [...] 06/23/2024 fluticasone (FLONASE) 50 MCG/ACT nasal spray Woden 2 sprays into both nostrils daily as [...] Take 2 tablets by mouth daily. 08/06/2024 OR BENEFITS SPECIALIST documented in this encounter Plan of Treatment Upcoming Encounters Date Type Department Care Team (Late st Contact Info) Description 09/08/2024 11:00 AM SENIOR BENEFITS SPECIALIST Virtual Visit [facility] Surgery Clinic and Bariatrics Care [address] [phone] Betty Leonardo, RD [address] [address] 11/06/2024 9:30 AM CDT Virtual Visit [facility] Surgery [facility] and Bariatrics Care [address] [phone] Dung Alva, PhD [employer] [facility] [address] [facility] [address] [place] [address] 11/07/2024 9:30 AM CDT Virtual Visit [facility] Surgery [facility] and Bariatrics Care [address] [place] [address] Hien Flood, RD [address] [facility] [address] [place] [address] 02/08/2025 1:30 PM CDT Office Visit [facility] Surgery Clinic and Bariatrics Care [place] [address] [place] [address] 200 [place] [phone] Miriam Melton, DEE CO FOUNDER AND PRESIDENT [address] [facility] [address] [place] [address] 05/09/2025 9:30 AM CDT Virtual Visit [facility] Surgery Clinic and Bariatrics Care [place] [address] [place] [address] 200 [place] [phone] Hien Flood, RD [address] [facility] [address] [place] [address] 08/09/2025 1:30 PM SENIOR BENEFITS SPECIALIST Office Visit [facility] Surgery [facility] and Bariatrics Care [address] [place] [phone] Miriam Melton, DEE CO FOUNDER AND PRESIDENT [address] [facility] [address] [place] [address] documented as of this encounter Procedures Procedure Name Priority Date/Time Associated Diagnosis Comments EXTRA PURPLE TOP EDTA (LAB USE ONLY) Routine 08/08/2024 6:23 AM SENIOR BENEFITS SPECIALIST CREATININE Routine 08/08/2024 6:23 AM SENIOR BENEFITS SPECIALIST PLATELET COUNT Routine 08/07/2024 4:10 PM SENIOR BENEFITS SPECIALIST CREATININE Routine 08/07/2024 4:10 PM SENIOR BENEFITS SPECIALIST CREATION, GASTRIC BYPASS, SRIDHAR-EN-Y, LAPAROSCOPIC 08/07/2024 10:48 AM SENIOR BENEFITS SPECIALIST Morbid obesity (H) Duodenal stricture Special Needs BMI 49.09Staff assist POC US GUIDANCE NEEDLE PLACEMENT Routine 08/07/2024 9:18 AM SENIOR BENEFITS SPECIALIST GLUCOSE BY METER Routine 08/07/2024 9:02 AM SENIOR BENEFITS SPECIALIST LAB RESULT - HIM SCAN 07/31/2024 12:00 AM SENIOR BENEFITS SPECIALIST XRAY IMAGING - HIM SCAN 07/31/2024 12:00 AM SENIOR BENEFITS SPECIALIST EKG CARDIAC - HIM SCAN 07/31/2024 12:00 AM SENIOR BENEFITS SPECIALIST documented in this encounter Results * Extra Purple Top EDTA (LAB USE ONLY) (08/08/2024 6:23 AM SENIOR BENEFITS SPECIALIST) Hold Specimen JIC 08/08/2024 7:46 AM SENIOR BENEFITS SPECIALIST [facility] Blood STRUCTURE OF RIGHT UPPER LIMB / Unknown Venipuncture / Unknown 08/08/2024 6:23 AM SENIOR BENEFITS SPECIALIST 08/08/2024 6:45 AM SENIOR BENEFITS SPECIALIST Aris Thurman MD LAB - BLOOD ORDERABLES Final Result Performing Organization Address City/[facility]/ZIP Co de Phone Number [facility] [address] * Creatinine (08/08/2024 6:23 AM SENIOR BENEFITS SPECIALIST) Creatinine 0.92 0.51 - 0.95 mg/dL 08/08/2024 7:04 AM SENIOR BENEFITS SPECIALIST [facility] GFR Estimate 79 >60 mL/min/1.7 3m2 08/08/2024 7:04 AM SENIOR BENEFITS SPECIALIST [facility] Comment:eGFR calculated us2020 CKD-EPI equation. Blood STRUCTURE OF RIGHT UPPER LIMB / Unknown Venipuncture / Unknown 08/08/2024 6:23 AM SENIOR BENEFITS SPECIALIST 08/08/2024 6:45 AM SENIOR BENEFITS SPECIALIST Miriam Melton APRN, CNP LAB - BLOOD ORDERABL ES Final Result Performing Organization Address City/[facility]/ZIP Co de Phone Number [facility] [address] * Creatinine (08/07/2024 4:10 PM SENIOR BENEFITS SPECIALIST) Creatinine 0.95 0.51 - 0.95 mg/dL 08/07/2024 4:45 PM SENIOR BENEFITS SPECIALIST [facility] GFR Estimate 76 >60 mL/min/1.7 3m2 08/07/2024 4:45 PM SENIOR BENEFITS SPECIALIST [facility] Comment:eGFR calculated 2020 CKD-EPI equation. Blood STRUCTURE OF RIGHT UPPER LIMB / Unknown Venipuncture / Unknown 08/07/2024 4:10 PM SENIOR BENEFITS SPECIALIST 08/07/2024 4:24 PM SENIOR BENEFITS SPECIALIST Aris Thurman MD LAB - BLOOD ORDERABLES Final Result Performing Organization Address [facility] Co de Phone Number [facility] [address] [place] [address], [facility] * Platelet count (08/07/2024 4:10 PM SENIOR BENEFITS SPECIALIST) Platelet Count 314 150 - 450 10e3/uL 08/07/2024 4:31 PM SENIOR BENEFITS SPECIALIST [facility] Blood STRUCTURE OF RIGHT UPPER LIMB / Unknown Venipuncture / Unknown 08/07/2024 4:10 PM SENIOR BENEFITS SPECIALIST 08/07/2024 4:24 PM SENIOR BENEFITS SPECIALIST Aris Thurman MD LAB - BLOOD ORDERABLES Final Result Performing Organization Address [facility] Phone Number [facility] [address] * POC US Guidance Needle Placement (08/07/2024 9:18 AM SENIOR BENEFITS SPECIALIST) Narrative [facility] - 08/07/2024 9:18 AM SENIOR BENEFITS SPECIALIST Ultrasound was performed as guidance to an anesthesia procedure. Click PACS images hyperlink below to view any stored images. For specific procedure details, view procedure note authored by anesthesia. Timo Elam MD IMG POCUS Final Resu lt Performing Organization Address [facility] de Phone Number [facility] * (ABNORMAL) Glucose by meter (08/07/2024 9:02 AM SENIOR BENEFITS SPECIALIST) GLUCOSE BY METER POCT 112(H) 70 - 99 mg/dL 08/07/2024 9:09 AM SENIOR BENEFITS SPECIALIST [facility] POCT RESULTS Blood, Capillary BLOOD SPECIMEN / Unknown 08/07/2024 9:02 AM SENIOR BENEFITS SPECIALIST 08/07/2024 9:09 AM SENIOR BENEFITS SPECIALIST us Aris Thurman MD LAB - BEAKER POCT Final Result [facility] POCT RESULTS [address] [place] [address] * Lab Result - HIM Scan (07/31/2024 12:00 AM SENIOR BENEFITS SPECIALIST) 07/31/2024 us Provider Outside NON-BEAKER LAB TESTING Final Result * Xray Imaging - HIM Scan (07/31/2024 12:00 AM SENIOR BENEFITS SPECIALIST) Anatomical Region Laterality Modality Other 07/31/2024 us Provider Outside IMG DIAGNOSTIC IMAGING ORDERABL ES Final Result * EKG Cardiac - HIM Scan (07/31/2024 12:00 AM SENIOR BENEFITS SPECIALIST) 07/31/2024 us Provider Outside ECG ORDERABLES Final Result documented in this encounter Visit Diagnoses Diagnosis Morbid (severe) obesity due to excess calories (H)- Primary Morbid (severe) obesity due to excess calories (H) S/P gastric bypass Bariatric surgery status Morbid obesity (H) Morbid obesity Duodenal stricture Other obstruction of duodenum documented in this encounter Administered Medications Inactive [...] 4 grams/day. $New Bag 08/07/2024 9:30 PM SENIOR BENEFITS SPECIALIST 1,000 mg 400 mL/hr $New Bag 08/07/2024 4:12 PM SENIOR BENEFITS SPECIALIST 1,000 mg 400 mL/hr acetaminophen (TYLENOL) oral liquid 975 mg 975 mg, Oral, EVERY 6 HOURS, First dose on Wed08/07/24 at 1530, Maximum acetaminophen dose from all sources=75 mg/kg/day not to exceed 4 grams/day. $Given 08/08/2024 8:55 AM SENIOR BENEFITS SPECIALIST 975 mg $Given 08/08/2024 3:38 AM SENIOR BENEFITS SPECIALIST 975 mg acetaminophen (TYLENOL) tablet 975 mg [...] Wed08/08/24 at 0900 $Given 08/08/2024 2:26 PM SENIOR BENEFITS SPECIALIST 40 mg $Given 08/08/2024 8:45 AM SENIOR BENEFITS SPECIALIST 40 mg BUPivacaine 0.25 % - EPINEPHrine 1:200,000 (PF) injection PRN, Starting on Wed08/07/24 at 1125, Intra-procedure $Given 08/07/2024 11:25 AM SENIOR BENEFITS SPECIALIST 90 mLs Operative Site/Surgical Site cetirizine (zyrTEC) tablet 10 mg 10 mg, Oral, DAILY, First dose on Wed08/08/24 at 0900 $Given 08/08/2024 8:44 AM SENIOR BENEFITS SPECIALIST 10 mg childrens multivitamin w/iron (FLINTSTONES COMPLETE) chewable tablet 1 tablet 1 tablet, Oral, 2 TIMES DAILY, First dose on Wed08/08/24 at 0900 $Given 08/08/2024 8:39 AM SENIOR BENEFITS SPECIALIST 1 tablet cyanocobalamin (VITAMIN B-12) sublingual tablet 1,000 mcg 1,000 mcg, Sublingual, DAILY, First dose on Wed08/08/24 at 0900 $Given 08/08/2024 8:40 AM SENIOR BENEFITS SPECIALIST 1,000 mcg dextrose 5% and 0.45% NaCl + KCl 20 mEq/L infusion at 125 mL/hr, Intravenous, CONTINUOUS, Starting on Wed08/07/24 at 1530, Until Wed08/08/24 at 1725 $New Bag 08/08/2024 1:32 AM SENIOR BENEFITS SPECIALIST 125 mL/hr Rate/Dose Verify 08/07/2024 7:39 PM SENIOR BENEFITS SPECIALIST 125 mL/ hr $New Bag 08/07/2024 4:36 PM SENIOR BENEFITS SPECIALIST 125 mL/hr 125 mL/hr doxazosin (CARDURA) tablet 1 mg 1 mg, Oral, AT BEDTIME, First dose on Wed08/07/24 at 2100, Tablets can be crushed and given via enteral route. $Given 08/07/2024 9:30 PM SENIOR BENEFITS SPECIALIST 1 mg DULoxetine (CYMBALTA) DR capsule 30 [...] a pudding/yogurt pill. $Given 08/08/2024 8:51 AM SENIOR BENEFITS SPECIALIST 30 mg DULoxetine (CYMBALTA) DR capsule 60 [...] a pudding/yogurt pill. $Given 08/08/2024 8:51 AM SENIOR BENEFITS SPECIALIST 60 mg enoxaparin ANTICOAGULANT (LOVENOX) injection 40 mg 40 mg, Subcutaneous, EVERY 24 HOURS, First dose on Wed08/07/24 at 2300, Administer enoxaparin (LOVENOX) 12 hours after the heparin PRE OP dose. HOLD if platelet count falls below 50% of baseline or less [id number]/ L and notify provider. $Given 08/07/2024 10:30 PM SENIOR BENEFITS SPECIALIST 40 mg gabapentin (NEURONTIN) solution 250 mg 250 mg, Oral, EVERY 8 HOURS SCHEDULED, First dose on Wed08/07/24 at 1530 $Given 08/08/2024 2:27 PM SENIOR BENEFITS SPECIALIST 250 mg $Given 08/08/2024 6:40 AM SENIOR BENEFITS SPECIALIST 250 mg $Given 08/07/2024 9:30 PM SENIOR BENEFITS SPECIALIST 250 mg lactated ringers (bag) irrigation SOLN PRN, Starting on Wed08/07/24 at 1230, Intra-procedure $Given 08/07/2024 12:30 PM SENIOR BENEFITS SPECIALIST 700 mLs Operative Site/Surgi marianela Site lamoTRIgine (LaMICtal) tablet 150 mg 150 mg, Oral, DAILY, First dose on Wed08/08/24 at 0900 $Given 08/08/2024 8:49 AM SENIOR BENEFITS SPECIALIST 150 mg nalbuphine (NUBAIN) injection 5 mg 5 mg, Intravenous, EVERY 4 HOURS PRN, other, itching, Starting on Wed08/07/24 at 1523, If nalBUPHine (NUBAIN) ineffective, call Anesthesia for approval to begin a continuous nalOXone (NARCAN) infusion. If infusion is started, the duration of use is 8 hours. $Given 08/08/2024 4:33 AM SENIOR BENEFITS SPECIALIST 5 mg $Given 08/07/2024 4:44 PM SENIOR BENEFITS SPECIALIST 5 mg naloxone (NARCAN) injection 0.2 mg [...] Jell-O or applesauce). $Given 08/08/2024 8:51 AM SENIOR BENEFITS SPECIALIST 20 mg ondansetron (ZOFRAN ODT) ODT tab [...] Liquid not required. $Given 08/08/2024 8:23 AM SENIOR BENEFITS SPECIALIST 4 mg ondansetron (ZOFRAN) injection 4 mg 4 mg, Intravenous, EVERY 6 HOURS PRN, nausea/vomiting - 1st line, Administer over 2-5 Minutes, Starting on Wed08/07/24 at 1523, Give IF patient unable to tolerate oral medication. This is Step 1 of nausea and vomiting management. If nausea not resolved in 15 minutes, go to Step 2 prochlorperazine (COMPAZINE). $Given 08/07/2024 8:28 PM SENIOR BENEFITS SPECIALIST 4 mg sodium chloride (PF) 0.9% PF flush 3 mL 3 mL, Intracatheter, EVERY 8 HOURS, First dose on Wed08/07/24 at 1530, to lock peripheral IV dormant line $Given 08/08/2024 8:55 AM SENIOR BENEFITS SPECIALIST 3 mLs traMADol (ULTRAM) tablet 100 mg 100 mg, Oral, EVERY 6 HOURS PRN, moderate pain, pain, Starting on Wed08/07/24 at 1523, All pills are to be cut to less than or equal to inch. $Given 08/07/2024 6:49 PM SENIOR BENEFITS SPECIALIST 100 mg traZODone (DESYREL) tablet 100 mg 100 mg, Oral, AT BEDTIME, First dose on Wed08/07/24 at 2100 $Given 08/07/2024 11:00 PM SENIOR BENEFITS SPECIALIST 100 mg documented in this encounter Active and Recently Administered Medications Times are shown in SENIOR BENEFITS SPECIALIST. Scheduled Medication Order 08/06/2024 08/07/2024 08/08/2024 acetaminophen [...] 1612 (See Alternative - Provider: Danilo Rodriguez RN)2130 (See Alternative - Provider: Zahra Seals RN) [...] grams/day., Pre-procedure 0923 ($Given - Provider: Emilia Minaya, BRYAN) acetaminophen (TYLENOL) tablet 975 mg(Linked Group 1) 975 mg, Oral, EVERY 6 HOURS, First dose on Wed08/07/24 at 1530, All pills are to be cut to less than or equal to 1/4 inch. Maximum acetaminophen dose from all sources = 75 mg/kg/day not to exceed 4 grams/day. 1612 (See Alternative - Provider: Danilo Rodriguez RN)2130 (See Alternative - Provider: Zahra Seals, BRYAN) 0338 (See Alternative - Provider: Zahra Seals RN)0855 (See Alternative - Provider: Danilo Rodriguez RN)1530 (Canceled Entry - Provider: Orders Generic Provider - Comment: Automatically canceled at discontinue of medication order) baclofen (LIORESAL) tablet 40 mg 40 mg, Oral, 3 TIMES DAILY, First dose on Wed08/08/24 at 0900 0845 ($Given - Provi eric: Danilo Rodriguez RN)1426 ($Given - Provider: Danilo Rodriguez, BRYAN) ceFAZolin Sodium (ANCEF) injection 3 g (COMPLETED) [...] be crushed and given via enteral route. 0 ($Given - Provider: Zahra Seals RN) DULoxetine [...] falls below 50% of baseline or less [id number],000/ L and notify provider. 2229 ($Given - Provider: Zahra A Arnel, RN) famotidine (PEPCID) injection 20 mg (COMPLETED) 20 mg, Intravenous, Administer over 2 Minutes, CONCRETE SPREADER TO O.R., Starting on Wed08/07/24 at 0902, For 1 dose, Give unless patient already took any of the following at home the morning of surgery: famotidine (PEPCID), ranitidine (ZANTAC), cimetidine (TAGAMET), nizatadine (AXID). For ordered IV doses 1-20 mg, give IV Push diluted with 5-10 mL NS over a minimum of 2 minutes., Pre-procedure 0934 ($Given - Provider: Emilia Minaya, BRYAN) gabapentin (NEURONTIN) capsule 600 mg (COMPLETED) 600 mg, Oral, CONCRETE SPREADER TO O.R., Starting on Wed08/07/24 at 0902, For 1 dose, Give prior to procedure., Pre-procedure 09 ($Given - Provider: Emilia Minaya, BRYAN) gabapentin (NEURONTIN) solution 250 mg 250 mg, Oral, EVERY 8 HOURS SCHEDULED, First dose on Wed08/07/24 at 1530 1645 ($Given - Provider: Danilo Rodriguez RN)2130 ($Given - Provider: Zahra Seals, BRYAN) 0640 ($Given - Provider: Zahra Seals RN - Comment: Computer not working)1427 ($Given - Provider: Danilo Rodriguez RN) heparin ANTICOAGULANT injection 5,000 Units (COMPLETED) 5,000 [...] 1046 ($Given - Provider: Lazarus Mendez APRN LEASE OPERATOR - Comment: sub cutaneous) ketorolac (TORADOL) injection [...] Zahra Seals RN)0842 ($Given - Provider: Danilo Rodriguez RN)1428 ($Given - Provider: Danilo Rodriguez RN) lamoTRIgine (LaMICtal) tablet 150 mg 150 mg, [...] Pre-procedure 0941 ($New Bag - Provider: Emilia Minaya RN) metoprolol tartrate (LOPRESSOR) tablet 50 mg 50 [...] injection 4 mg (COMPLETED) 4 mg, Intravenous, CONCRETE SPREADER TO O.R., Administer over 2-5 Minutes, Starting on Wed08/07/24 at 0902, For 1 dose, Pre-procedure 0934 ($Given - Provider: Emilia Minaya RN) sodium chloride (PF) 0.9% PF flush [...] at 2100 2300 ($Given - Provider: Zahra Seals RN) Continuous Medication Order 08/06/2024 08/07/2024 08/08/2024 dextrose 5% and 0.45% NaCl + KCl 20 mEq/L infusion at 125 mL/hr, Intravenous, CONTINUOUS, Starting on Wed08/07/24 at 1530, Until Wed08/08/24 at 1725 1636 ($New Bag - Provider: Danilo Rodriguez RN)1638 (Not Given - Provider: Danilo Rodriguez RN - Reason: Contraindicated)1939 (Rate/Dose Verify - Provider: Zahra Seals RN) 0132 ($New Bag - Provider: Gonsalo Bush RN) lactated ringers infusion (CANCELED) at 100 mL/hr, [...] (DILAUDID)., PACU 1425 ($Given - Provider: Allan Chapa RN)1446 ($Given - Provider: Allan Chapa RN) fentaNYL [...] dose., Pre-procedure 1012 ($Given - Provider: Emilia Minaya, BRYAN) nalbuphine (NUBAIN) injection 5 mg 5 mg, [...] Seals RN) 0823 ($Given - Provider: Danilo Rodriguez RN) ondansetron (ZOFRAN) injection 4 mg (CANCELED)(Linked Group [...] to less than or equal to inch. 1848 ($Given - Provider: Danilo Rodriguez RN) Linked [...] documented as of this encounter Care Teams Mechanical Process Engineer Relationship Specialty Start Date End Date Herson Rhodes MD PCP - General 06/02/11 [facility] [address] [facility] [address] Assigned PCP 12/14/[address] [address] Registered Dietitian Dietitian, Registered 06/09/24 Dung Alva, PhD [employer] [address] [facility] 200 [place] [address] Assigned Behavioral Health Provider 06/14/24 Aris Thurman MD [address] [place] [address] 200 [place] [address] Assigned Surgical Provider 07/15/24 Miriam Melton APRN [employer] [address] [place] [address] 200 [place] [address] Nurse Practitioner Surgery 07/19/24 documented as of this encounter
--- OUTSIDE RECORDS SUMMARY | 2024-09-02 08:27 | XMS_ITS | Encounter Summary ---
Author Organization [place] Address [address] [place] [address]. [place] [address] Care Team Providers Care Bioprocessing Manufacturing Technician Name Role Phone Herson Rhodes MD Primary Care Provider [facility] Unavailabl e Hien Flood RD Unavailable [phone] Dung Alva PhD Unavailable Aris Thurman MD Unavailable [phone] Miriam Melton APRN ADMINISTRATIVE ASSISTANT COORDINATOR Unavailable [phone]- [phone] Encounter Details Date Type Department Care Team (Late st Contact Info) Description 07/17/2024 MyC Medical Advice [facility] [address] [phone] Radha Brown Social History Tobacco Use Types [...] PM CDT Legal Sex Female 5:06 AM BUTTON BRADDER Gender Identity Female 04/04/2021 10:28 PM CDT Sexual Orientation Straight 04/04/2021 10 :28 PM CDT documented as of this encounter Plan of Treatment Upcoming Encounters Date Type Department Care Team (Late st Contact Info) Description 09/08/2024 11:00 AM BUTTON BRADDER Virtual Visit M [facility] [address] 200 [place] [phone] Betty Leonardo, RD 2945 [facility] 200 [place] [address] 11/06/2024 9:30 AM CDT Virtual Visit [facility] [address] 200 [place] [phone] Dung Alva, PhD RONNA AND [employer] [facility] [address] [facility] 200 [place] [address] 11/07/2024 9:30 AM CDT Virtual Visit [facility] [address] 200 [place] [address] Hien Flood, ZEINAB 2945 [facility] 200 [place] [address] 02/08/2025 1:30 PM CDT Office Visit [facility] [address] 200 [place] [address] Miriam Melton, TRANSMISSIONS SYSTEMS OPERATOR ADMINISTRATIVE ASSISTANT COORDINATOR [address] [place] [address] 200 [place] [address] 05/09/2025 9:30 AM CDT Virtual Visit [facility] [address] 200 [place] [address] Hien Flood, ZEINAB [address] [place] [address] 08/09/2025 1:30 PM BUTTON BRADDER Office Visit [facility] [address] [phone] Miriam Melton APRN ADMINISTRATIVE ASSISTANT COORDINATOR [address] [place] [address] documented as of this encounter Visit Diagnoses Not on filedocumented in this encounter Additional Health Concerns Assessment Noted Time PHQ-9 Depression Total Score: 2 05/07/20 21 11:37 AM CDT documented as of this encounter Care Teams Bioprocessing Manufacturing Technician Relationship Specialty Start Date End Date Herson Rhodes MD PCP - General 06/02/11 Clinic - [facility] [address] [place] [address] Assigned PCP 12/14/[address] [place] [address] Registered Dietitian Dietitian, Registered 06/09/24 Dung Alva, PhD [employer] [address] [address] Assigned Behavioral Health Provider 06/14/24 Aris Thurman MD [address] [place] [address] Assigned Surgical Provider 07/15/24 Miriam Melton APRN ADMINISTRATIVE ASSISTANT COORDINATOR [address] [address] Nurse Practitioner Surgery 07/19/24 documented as of this encounter
--- OUTSIDE RECORDS SUMMARY | 2024-09-02 08:27 | XMS_ITS | Encounter Summary ---
Author Organization [place] Address [address] [place] [address]. [place] [address] Care Team Providers Care Mill Washer Name Role Phone Herson Rhodes MD Primary Care Provider [phone] [facility] Unavailabl e Hien Flood RD Unavailable [phone] Dung Alva PhD Unavailable [phone] Aris Thurman MD Unavailable Miriam Melton APRN DIETARY COOK Unavailable + [phone] Encounter Details Date Type Department Care Team (Late st Contact Info) Description 07/17/2024 MyC Medical Advice [facility] [address] [phone] Litzy Hall RN Social History Tobacco Use [...] PM CDT Legal Sex Female 5:06 AM INTERCELL CONNECTOR PLACER Gender Identity Female 04/04/2021 10:28 PM CDT Sexual Orientation Straight 04/04/2021 10 :28 PM CDT documented as of this encounter Plan of Treatment Upcoming Encounters Date Type Department Care Team (Late st Contact Info) Description 09/08/2024 11:00 AM INTERCELL CONNECTOR PLACER [facility] [address] 200 [place] [phone] Betty Leonardo, RD 2945 [facility] 200 [place] [address] 11/06/2024 9:30 AM CDT Virtual Visit M [facility] [address] 200 [place] [address] Dung Alva, PhD [employer]NA [employer] [address] [facility] 200 [place] [address] 11/07/2024 9:30 AM CDT Virtual Visit [facility] [address] 200 [place] [address] Hien Flood, RD 2945 [facility] 200 [place] [address] 02/08/2025 1:30 PM CDT Office Visit [facility] [address] 200 [place] [address] Miriam Melton, BOLT HEADER DIETARY COOK [address] [place] [address] 200 [place] [address] 05/09/2025 9:30 AM CDT Virtual Visit [facility] [address] 200 [place] [address] [address] 08/09/2025 1:30 PM INTERCELL CONNECTOR PLACER Office Visit [facility] [place] [address] [place] [phone] Miriam Melton APRN DIETARY COOK [address] [place] [address] documented as of this encounter Visit Diagnoses Not on filedocumented in this encounter Additional Health Concerns Assessment Noted Time PHQ-9 Depression Total Score: 2 05/07/20 21 11:37 AM CDT documented as of this encounter Care Teams Mill Washer Relationship Specialty Start Date End Date Herson Rhodes MD PCP - General 06/02/11 [facility] [place] [address] [place] [address] Assigned PCP 12/14/[address] [place] [address] Registered Dietitian Dietitian, Registered 06/09/24 Dung Alva, PhD RONNA AND [employer] [address] [facility] 200 [place] [address] Assigned Behavioral Health Provider 06/14/24 Aris Thurman MD [address] [place] [address] Assigned Surgical Provider 07/15/24 Miriam Melton APRN DIETARY COOK [address] [id number] Nurse Practitioner Surgery 07/19/24 documented as of this encounter
--- OUTSIDE RECORDS SUMMARY | 2024-09-02 08:27 | XMS_ITS | Encounter Summary ---
Author Organization [place] Address [address] [place] [address]. [place] [address] Care Team Providers Care Front Office Director Name Role Phone Herson Rhodes MD Primary Care Provider [facility] Unavailabl e Hien Flood RD Unavailable Miriam Melton APRN AUTO APPRENTICE MECHANIC Unavailable Dung Alva PhD Unavailable [phone] Aris Thurman MD Unavailable [phone] Miriam Melton APRN AUTO APPRENTICE MECHANIC Unavailable Encounter Details Date Type Department Care Team (Late st Contact Info) Description 06/14/2024 MyC Medical Advice [facility] Social History Tobacco Use Types Packs/Day Years [...] PM CDT Legal Sex Female 5:06 AM DISTRIBUTION DISPATCHER Gender Identity Female 04/04/2021 10:28 PM CDT Sexual Orientation Straight 04/04/2021 10 :28 PM CDT documented as of this encounter Plan of Treatment Upcoming Encounters Date Type Department Care Team (Late st Contact Info) Description 09/08/2024 11:00 AM DISTRIBUTION DISPATCHER Virtual Visit M [facility] [address] 200 [place] [address] Betty Leonardo, RD 2945 [facility] 200 [place] [address] 11/06/2024 9:30 AM CDT Virtual Visit M [facility] [address] 200 [place] [address] Dung Alva, PhD RONNA AND [email or web address] [facility] [address] 200 [place] [address] 11/07/2024 9:30 AM CDT Virtual Visit [facility] [address] 200 [place] [address] Hien Flood, RD 2945 [facility] 200 [place] [address] 02/08/2025 1:30 PM CDT Office Visit M [facility] [address] 200 [place] [address] Miriam Melton, CITY DISTRIBUTION CLERK AUTO APPRENTICE MECHANIC 2945 [facility] 200 [place] [address] 05/09/2025 9:30 AM CDT Virtual Visit M [facility] [address] 200 [place] [address] Hien Flood, RD 2945 [facility] 200 [place] [address] 08/09/2025 1:30 PM DISTRIBUTION DISPATCHER Office Visit [facility] [place] [address] [place] [address] 200 [place] [phone] Miriam Mleton APRN AUTO APPRENTICE MECHANIC [address] [place] [address] documented as of this encounter Visit Diagnoses Not on filedocumented in this encounter Additional Health Concerns Assessment Noted Time PHQ-9 Depression Total Score: 2 05/07/20 21 11:37 AM CDT documented as of this encounter Care Teams Front Office Director Relationship Specialty Start Date End Date Herson Rhodes MD PCP - General 06/02/11 Clinic - [facility] [address] [place] [address] Assigned PCP 12/14/[address] [place] [place] [address] Registered Dietitian Dietitian, Registered 06/09/24 Miriam Melton APRN AUTO APPRENTICE MECHANIC [address] [place] [address] Assigned Surgical Provider 06/14/24 07/14/24 Dung Alva, PhD RONNA AND [employer] [facility] [address] [facility] 200 [place] [address] Assigned Behavioral Health Provider 06/14/24 Aris Thurman MD [address] [place] [address] 200 [place] [address] Assigned Surgical Provider 07/15/24 Miriam Melton APRN AUTO APPRENTICE MECHANIC [address] [place] [address] 200 [place] [address] Nurse Practitioner Surgery 07/19/24 documented as of this encounter
--- OUTSIDE RECORDS SUMMARY | 2024-09-02 08:27 | XMS_ITS | Encounter Summary ---
Author Organization [facility] Address [address] [place] [address]. [place] [address] Care Team Providers Care Vault Clerk Name Role Phone Herson Rhodes MD Primary Care Provider [facility] Unavailabl e Hien Folod RD Unavailable [phone] Dung Alva PhD Unavailable Aris Thurman MD Unavailable Miriam Melton APRN PAINT STRIPING MACHINE OPERATOR Unavailable [phone] Encounter Details Date Type Department Care Team [...] PM CDT Legal Sex Female 5:06 AM HEARING AID DISPENSER Gender Identity Female 04/04/2021 10:28 PM CDT Sexual Orientation Straight 04/04/2021 10 :28 PM CDT documented as of this encounter Plan of Treatment Upcoming Encounters Date Type Department Care Team (Late st Contact Info) Description 09/08/2024 11:00 AM HEARING AID DISPENSER [facility] [address] 200 [place] [address] Betty Leonardo, RD 2945 [facility] 200 [place] [address] 11/06/2024 9:30 AM CDT Virtual Visit [facility] [address] 200 [place] [address] Dugn Alva, PhD RONNA AND [employer] [facility] [address] 200 [place] [address] 11/07/2024 9:30 AM CDT Virtual Visit [facility] Surgery [facility] [address] 200 [place] [address] 2945 [facility] 200 [place] [address] 02/08/2025 1:30 PM CDT Office Visit [facility] [address] 200 [place] [address] Miriam Melton, MOTORCYCLE REPAIR SHOP SUPERVISOR PAINT STRIPING MACHINE OPERATOR 2945 [facility] 200 [place] [address] 05/09/2025 9:30 AM CDT Virtual Visit [facility] [address] 200 [place] [address] 2945 [facility] 200 [place] [address] 08/09/2025 1:30 PM HEARING AID DISPENSER Office Visit [facility] [place] [address] [phone] Miriam Melton APRN PAINT STRIPING MACHINE OPERATOR [address] [place] [address] documented as of this encounter Visit Diagnoses Not on filedocumented in this encounter Additional Health Concerns Assessment Noted Time PHQ-9 Depression Total Score: 2 05/07/20 21 11:37 AM CDT documented as of this encounter Care Teams Vault Clerk Relationship Specialty Start Date End Date Herson Rhodes MD PCP - General 06/02/11 [facility] [address] [place] [address] Assigned PCP 12/14/[address] [place] [address] Registered Dietitian Dietitian, Registered 06/09/24 Dung Alva, PhD R[employer]NA AND [employer] [facility] [address] [address] Assigned Behavioral Health Provider 06/14/24 Aris Thurman MD [address] [place] [address] Assigned Surgical Provider 07/15/24 Miriam Melton APRN PAINT STRIPING MACHINE OPERATOR [address] [place] [address] Nurse Practitioner Surgery 07/19/24 documented as of this encounter
--- OUTSIDE RECORDS SUMMARY | 2024-09-02 08:27 | XMS_ITS | Encounter Summary ---
Author Organization [place] Address [address] [place] [address]. [place] [address] Care Team Providers Care Watermelon Inspector Name Role Phone Herson Rhodes MD Primary Care Provider [phone] [facility] Unavailabl e Hien Flood RD Unavailable [phone] Dung Alva PhD Unavailable [phone] Aris Thurman MD Unavailable Miriam Melton APRN JIG MAKER Unavailable + [phone] Encounter Details Date Type Department Care Team (Late st Contact Info) Description 07/18/[address] [facility] [address] [phone] [facility] Social History Tobacco Use Types Packs/Day [...] PM CDT Legal Sex Female 5:06 AM HEAT AND VENT AIRCRAFT MECHANIC Gender Identity Female 04/04/2021 10:28 PM CDT Sexual Orientation Straight 04/04/2021 10 :28 PM CDT documented as of this encounter Plan of Treatment Upcoming Encounters Date Type Department Care Team (Late st Contact Info) Description 09/08/2024 11:00 AM HEAT AND VENT AIRCRAFT MECHANIC Virtual Visit M [facility] [address] 200 [place] [phone] Betty Leonardo, RD 2945 [facility] 200 [place] [address] 11/06/2024 9:30 AM CDT Virtual Visit [facility] [address] 200 [place] [phone] Dung Alva, PhD RONNA AND [employer] [facility] [address] [facility] 200 [place] [address] 11/07/2024 9:30 AM CDT Virtual Visit [facility] [address] 200 [place] [address] Hien Flood, RD 2945 [facility] 200 [place] [address] 02/08/2025 1:30 PM CDT Office Visit [facility] [address] 200 [place] [address] Miriam Melton, TELEPHONE APPOINTMENT CLERK JIG MAKER [address] [place] [address] 200 [place] [address] 05/09/2025 9:30 AM CDT Virtual Visit [facility] [address] 200 [place] [address] Hien Flood, RD [address] [address] 08/09/2025 1:30 PM HEAT AND VENT AIRCRAFT MECHANIC Office Visit [facility] [address] [phone] Miriam Melton APRN JIG MAKER [address] [place] [address] documented as of this encounter Visit Diagnoses Not on filedocumented in this encounter Additional Health Concerns Assessment Noted Time PHQ-9 Depression Total Score: 2 05/07/20 21 11:37 AM CDT documented as of this encounter Care Teams Watermelon Inspector Relationship Specialty Start Date End Date Herson Rhodes MD PCP - General 06/02/11 Clinic - [facility] [address] [place] [address] Assigned PCP 12/14/[address] [place] [address] Registered Dietitian Dietitian, Registered 06/09/24 Dung Alva, PhD [employer] [address] [address] Assigned Behavioral Health Provider 06/14/24 Aris Thurman MD [address] [place] [address] Assigned Surgical Provider 07/15/24 Miriam Melton APRN [employer] [address] [address] Nurse Practitioner Surgery 07/19/24 documented as of this encounter
--- OUTSIDE RECORDS SUMMARY | 2024-09-02 08:27 | XMS_ITS | Encounter Summary ---
Author Organization [facility] Address [address] [place] [address]. [place] [address] Care Team Providers Care Mowing Machine Operator Name Role Phone Herson Rhodes MD Primary Care Provider [facility] Unavailabl e Hien Flood RD Unavailable [phone] Miriam Melton APRN SUPERVISOR PLASTERING Unavailable + [phone] Dung Alva PhD Unavailable [phone] Aris Thurman MD Unavailable [phone] Miriam Melton APRN SUPERVISOR PLASTERING Unavailable + [phone] Reason for Visit * Reason Onset Date Comments prep for surgery 06/28/2024 Encounter Details Date Type Department Care Team (Late st Contact Info) Description 06/28/2024 MyC Medical Advice [facility] [address] [phone] Litzy Hall, RN prep for surgery Social [...] PM CDT Legal Sex Female 5:06 AM ANALOG DESIGN ENGINEER Gender Identity Female 04/04/2021 10:28 PM CDT Sexual Orientation Straight 04/04/2021 10 :28 PM CDT documented as of this encounter Plan of Treatment Upcoming Encounters Date Type Department Care Team (Late st Contact Info) Description 09/08/2024 11:00 AM ANALOG DESIGN ENGINEER [facility] [address] 200 [place] [address] Betty Leonardo, RD 2945 [facility] 200 [place] [address] 11/06/2024 9:30 AM CDT Virtual Visit [facility] [address] 200 [place] [address] Dung Alva, PhD [employer]ONNA [employer] [address] 200 [place] [address] 11/07/2024 9:30 AM CDT Virtual Visit [facility] [address] 200 [place] [address] Hien Flood, RD 2945 [facility] 200 [place] [address] 02/08/2025 1:30 PM CDT Office Visit [facility] [address] 200 [place] [phone] Miriam Melton, DEE SUPERVISOR PLASTERING 2945 [facility] 200 [place] [address] 05/09/2025 9:30 AM CDT Virtual Visit [facility] [address] [phone] [place] [address] 08/09/2025 1:30 PM ANALOG DESIGN ENGINEER Office Visit [facility] [address] [phone] Miriam Melton APRN SUPERVISOR PLASTERING [address] [place] [address] documented as of this encounter Visit Diagnoses Diagnosis History of tobacco use- Primary Personal history of tobacco use, presenting hazards to health documented in this encounter Additional Health Concerns Assessment Noted Time PHQ-9 Depression Total Score: 2 05/07/20 21 11:37 AM CDT documented as of this encounter Care Teams Mowing Machine Operator Relationship Specialty Start Date End Date Herson Rhodes MD PCP - General 06/02/11 Clinic - [facility] [address] [place] [address] Assigned PCP 12/14/[address] [place] [address] Registered Dietitian Dietitian, Registered 06/09/24 Miriam Melton APRN SUPERVISOR PLASTERING [address] [place] [address] Assigned Surgical Provider 06/14/24 07/14/24 Dung Alva, PhD [email or web address] [address] 200 [place] [address] Assigned Behavioral Health Provider 06/14/24 Aris Thurman MD 2945 [facility] 200 [place] [address] Assigned Surgical Provider 07/15/24 Miriam Melton APRN [facility] 2945 [facility] [address] [place] [address] Nurse Practitioner Surgery 07/19/24 documented as of this encounter
--- OUTSIDE RECORDS SUMMARY | 2024-09-02 08:27 | XMS_ITS | Encounter Summary ---
Author Organization [facility] Address [address] [place] [address]. [place] [address] Care Team Providers Care Pitch Filler Name Role Phone Herson Rhodes MD Primary Care Provider [facility] Unav[facility] Hien Flood [address] Unavailable [phone] Dung Alva PhD Unavailable Aris Thurman MD Unavailable [phone] Miriam Melton APRN ARTIFICIAL INSEMINATOR Unavailable Reason for Visit * Auth/Cert Specialty Diagnoses / Procedures Referred By Abdirizak trimble Referred To Contact Surgery Diagnoses Morbid obesity (H) Duodenal stricture Morbid obesity (H) [E66.01] Duodenal stricture [K31.5] Procedures OR REMOVAL STOMACH,SRIDHAR-EN-Y OR REMV STOMACH,PART,DISTAL,SRIDHAR-EN-Y OR LAPAROSCOPIC GASTRIC RESTRICTIVE PX, W/GASTRIC BYPASS/ SRIDHAR-EN-Y, < 150CM ZZC GASTRIC BYPASS,OBESE<100CM SRIDHAR-EN-Y CREATION, GASTRIC BYPASS, SRIDHAR-EN-Y, LAPAROSCOPIC [address] [address] Phone: tel: Referral ID Status Reason Start Date Expiration Date Visits Re quested Visits Authorized [id number] 1 1 Encounter Details Date Type Department Care Team (Late st Contact Info) Description 08/07/2024 10:51 AM UNDERCOVER COP Anesthesia Event [address] [address] Aubrey Gutierrez MD [employer] [address] [place] [id number] Timo Elam MD [employer] [address] [place] [address] [id number] Anesthesia Record Procedure Summary Procedure Name Responsible Anesthesiologist Anesthesia Start Time Anesthesia Stop Time CREATION, GASTRIC BYPASS, SRIDHAR-EN-Y, LAPAROSCOPIC (Abdomen) Aubrey Gutierrez MD 08/07/24 1051 08/07/24 1318 Events Date Time Event Comment 08/07/2024 0948 BEHAVIORAL ASSISTANT Ready for Procedure 1024 1051 An Start Anesthesia Star t is defined as when the anesthesia provider assumed care, began anesthesia prep, remained continuously present with the patient, and excludes all time for performing the pre-anesthesia evaluation. The Pre-Anesthesia Evaluation was completed before Anesthesia Start. 1051 An Start Data 1051 AN REASSESS I attest that I have identified and re-evaluated the patient immediately before the induction of anesthesia and I am satisfied that the anesthetic plan is suitable for the patient's condition and procedure. The first vital signs recorded are pre-induction. Lazarus Sheets APRN BEHAVIORAL ASSISTANT 1053 An Induction 1054 An Intubation 1103 Anesthesia Ready for Procedu re 1311 AN Extubation All extubation criteria met prior to removal. 1313 an stop data 1318 An Stop Electronically signed by Lazarus Sheets APRN BEHAVIORAL ASSISTANT on August 07, 2024 1:18 PM Meds Name Total fentaNYL 50 mcg/mL 100 mcg lidocaine 1% 5 mL propofol 10 mg/mL 200 mg propofol drip mcg/kg/min 446.31 mg ketamine injection 10 mg/mL 50 mg rocuronium 10 mg/mL 100 mg dexamethasone (DECADRON) 10 mg/mL 10 mg ondansetron 2 mg/mL 4 mg sugammadex (BRIDION) 200mg/2mL 400 mg ceFAZolin Sodium (ANCEF) injection 3 g 3 g magnesium sulfate 4 g in 50 mL sterile w ater intermittent infusion 0 g heparin ANTICOAGULANT injection 5,000 Un its 5,000 Units Morphine PF 1 mg/mL (Intrathecal) 0.2 mg dexmedeTOMIDine (PRECEDEX) bolus 200 mcg 20 mcg glycopyrrolate 0.2 mg/mL 0.3 mg midazolam (VERSED) injection 0.5-2 mg 0 mg lactated ringers infusion 1,000 mL 0.9% NS 100 mL * Agents Name O2 Air Exp Sevoflurane Exp Isoflurane Exp Desflurane Ins Sevoflurane Ins Isoflurane Ins Desflurane * Blood No blood administrations on file. Lines, Drains, and Airways Type Details Placement Removal Incision/Surgical Site port 4 08/07/24 1138 by Gela Anand RN Incision/Surgical Site Incision; 4; 1136; Left, Upper; Abdomen; port 1 08/07/24 1136 by Royal Stallings RN Incision/Surgical Site Incision; 4; 1138; Right, Upper; Abdomen; port 2 08/07/24 1138 by Royal Stallings RN Incision/Surgical Site Incision; 4; 1138; Right, Upper; Abdomen; port 3 08/07/24 1138 by Royal Stallings RN Incision/Surgical Site Incision; 4; 1139; Left, Upper; Abdomen; port 5 08/07/24 1139 by Royal Stallings RN Incision/Surgical Site Incision; 4; 1139; Left, Upper; Abdomen; port 6 08/07/24 1139 by Royal Stallings RN Incision/Surgical Site Incision; 4; 1139; Upper, Midline; Abdomen; liver retractor 08/07/24 1139 by Royal Stallings RN Incision/Surgical Site 03/16/11; Left, U pper; Buttocks; 08/07/24; 1318 03/16/11 0000 by Saundra Manley RN 08/07/24 1318 by Gela Anand RN Incision/Surgical Site 06/02/11; 1052; Midline; Back; 08/07/24; 1319 06/02/11 1052 by Makenzie Marshall RN 08/07/24 1319 by Gela Anand RN Incision/Surgical Site 01/08/14; 0753; Bilateral; Abdomen; 08/07/24; 1135 01/08/14 0753 by Laure Cleaning RN 08/07/24 1135 by Royal Stallings RN Incision/Surgical Site 01/08/14; 0753; Bilateral; Vagina; 08/07/24; 1319 01/08/14 0753 by Laure Cleaning RN 08/07/24 1319 by Gela Anand RN Incision/Surgical Site 02/14/14; 0842; L eft; Buttocks; 08/07/24; 1319 02/14/14 0842 by Vipul Leong RN 08/07/24 1319 by Gela Anand RN Incision/Surgical Site 02/12/15; 1048; Abdomen; 08/07/24; 1135 02/12/15 1048 by Kassandra Lee RN 08/07/24 1135 by Royal Stallings RN Incision/Surgical Site 12/19/15; 1215; Abdomen; 08/07/24; 1135 12/19/15 1215 by Kassandra Lee RN 08/07/24 1135 by Royal Stallings RN Incision/Surgical Site 04/11/19; 0820; Anterior; Abdomen; x3 poke incisions; 08/07/24; 1135 04/11/19 0820 by Barbara Chi RN 08/07/24 1135 by Royal Stallings RN Peripheral IV 08/07/24; 0931; 18 G ; Anterior, Left; Upper forearm; Chlorhexidine; None; 1; Tolerated well 08/07/24 0931 by Emilia Minaya RN 08/08/24 1436 by Danilo Rodriguez RN ETT Placement Date: 08/07/24; Placement Time: 1054 (created via procedure documentation); Mask Ventilation: 1; Induction Type: Intravenous; Ease of Intubation: Easy; Technique: Video laryngoscopy; Tube Size: 7.5 mm; VL Blade Size: [place] scope 3; Grade View: 1; Adjucts: Stylet; Placement Person: BEHAVIORAL ASSISTANT; Attempts: 1 08/07/24 1054 by Lazarus Sheets WOOD CUT ENGRAVER BEHAVIORAL ASSISTANT 08/07/24 1311 by Lazarus Sheets APRN CRNA documented in this encounter Social History Tobacco [...] PM CDT Legal Sex Female 5:06 AM UNDERCOVER COP Gender Identity Female 04/04/2021 10:28 PM CDT Sexual Orientation Straight 04/04/2021 10 :28 PM CDT documented as of this encounter OR Notes * Anesthesia Postprocedure Evaluation - Aubrey Gutierrez MD - 08/07/2024 1:34 PM CST Patient: Sofia Iyer Procedure: Procedure(s): CREATION, GASTRIC BYPASS, SRIDHAR-EN-Y, LAPAROSCOPIC Anesthesia Type: General Note: Disposition: Outpatient Postop Pain Control: Uneventful Sign Out: Well controlled pain PONV: No Neuro/Psych: Uneventful Sign Out: Acceptable/Baseline neuro status Airway/Respiratory: Uneventful Sign Out: Acceptable/Baseline resp. status CV/Hemodynamics: Uneventful Sign Out: Acceptable CV status; No obvious hypovolemia; No obvious fluid overload Other NRE: NONE DID A NON-ROUTINE EVENT OCCUR? No Last vitals: Vitals Value Taken Time BP 173/90 08/07/24 1330 Temp Pulse 85 08/07/24 1332 Resp 31 08/07/24 1332 SpO2 92 % 08/07/24 1332 Vitals shown include unfiled device data. Electronically Signed By: Aubrey Gutierrez MD August 07, 2024 1:34 PM RC[facility] COP * Anesthesia Procedure Notes - Lazarus Sheets APRN CRNA - 08/07/2024 11:10 AM CSTAssociated Order(s): Airway Airway Patient location during procedure: OR Procedure Start/Stop Times: 08/07/2024 10:54 AM Staff - BEHAVIORAL ASSISTANT: Lazarus Sheets APRN CRNA Performed By: BEHAVIORAL ASSISTANT Consent for Airway Urgency: elective Indications and [...] Administered Medication Administration Time: 08/07/2024 10:54 AM RC[facility] COP * Anesthesia Procedure Notes - Aubrey Gutierrez MD - 08/07/2024 10:24 AM UNDERCOVER COP Associated Order(s): Spinal Block Intrathecal injection Procedure Note Pre-Procedure Staff - [...] Medication Administration Time: 08/07/2024 10:24 AM FOR [facility] ([facility]) ONLY: Pain Team Contact information: please page the Pain Team Via [employer]Search Pain. During daytime hours, please page the attending first. At night please page the resident first. [facility] * Anesthesia Preprocedure Evaluation - Aubrey Gutierrez MD - 08/07/2024 10:23 AM CST Anesthesia Pre-Procedure Evaluation Patient: Sofia Iyer : 1980 Procedure : Procedure(s): CREATION, GASTRIC BYPASS, SRIDHAR-EN-Y, LAPAROSCOPIC Past Medical History: Diagnosis Date Allergic rhinitis Anxiety Chronic daily headache Chronic pain neck pain Degenerative lumbar disc Diabetes (H) Diverticulitis Dysthymic disorder Endometriosis Gastro-oesophageal reflux disease GERD (gastroesophageal reflux disease) Hyperlipidemia LDL goal <100 Hypertension IBS (irritable bowel syndrome) IBS (irritable bowel syndrome) Insomnia Low back pain Major depressive disorder, recurrent episode, severe (H) Obese Other chronic pain PCOS (polycystic ovarian syndrome) PONV (postoperative nausea and vomiting) Pyloric stenosis in adult Sacroiliac joint dysfunction Sleep apnea Spinal cord stimulator status uses spinal cord stimulator Spondylarthrosis Trochanteric bursitis of right hip Walking troubles not current 05/29/11 Past Surgical History: Procedure Laterality Date COLONOSCOPY ESOPHAGOSCOPY, GASTROSCOPY, DUODENOSCOPY (EGD), COMBINED N/A 04/09/2021 Procedure: ESOPHAGOGASTRODUODENOSCOPY WITH DUODENAL DILATION AND GASTRIC BIOPSIES; Surgeon: Kashif Su MD; Location: [facility] OR RELIEF DRILLER SURGERY exc endometrial cysts HYSTERECTOMY, PAP STILL INDICATED until 2025 HYSTEROSCOPY DIAGNOSTIC 01/08/2014 Procedure: HYSTEROSCOPY DIAGNOSTIC; Surgeon: Alan Shah MD; Location: [facility] HYSTEROSCOPY DIAGNOSTIC N/A 02/12/2015 Procedure: HYSTEROSCOPY DIAGNOSTIC; Surgeon: Alan Shah MD; Location: [facility] INSERT STIMULATOR DORSAL COLUMN INSERT STIMULATOR [...] N/A 04/11/2019 Procedure: LAPAROSCOPY, USING CO2 LASER (TRANSCronote TECH); Surgeon: Alan Shah MD; Location: OR radio frequency ablation nerve spine radiofrequency ablation of nerve neck 05/25/11 REPLACE BATTERY STIMULATOR DORSAL COLUMN 02/14/2014 Procedure: REPLACE BATTERY STIMULATOR DORSAL COLUMN; Surgeon: Aj Mitchell MD; Location: [facility] OR Allergies Allergen Reactions Compazine Restless legs Levofloxacin Other reaction(s): GI Upset Phenergan Dm [Promethazine-Dm] Restless legs Social History Tobacco Use Smoking status: Former Current packs/day: 0.00 Types: Cigarettes Quit date: 08/23/2010 Years since quittin.9 Smokeless tobacco: Never Substance Use Topics Alcohol use: Yes Alcohol/week: 0.0 standard drinks of alcohol Comment: 1/month Wt Readings from Last 1 Encounters: 08/07/24 130.5 kg (287 lb 9.6 oz) Anesthesia Evaluation ROS/MED HX ENT/Pulmonary: (+) sleep apnea, Neurologic: Cardiovascular: (+) hypertension- - - - - METS/Exercise Tolerance: Hematologic: Musculoskeletal: GI/Hepatic: (+) GERD, Renal/Genitourinary: Endo: (+) type I DM, Obesity, Psychiatric/Substance Use: Infectious Disease: Malignancy: Other: (+) , H/O Chronic Pain, Physical Exam Airway Mallampati: III TM distance: > 3 FB Mouth opening: > 3 cm Respiratory Devices and Support Dental Cardiovascular cardiovascular exam normal Pulmonary pulmonary exam normal OUTSIDE LABS: CBC: Lab Results Component Value Date WBC 7.9 05/18/2024 HGB 11.2 (L) 05/18/2024 HGB 12.9 12/20/2015 HCT 35.4 05/18/2024 PLT 411 05/18/2024 BMP: Lab Results Component Value Date NA 137 05/18/2024 NA 136 01/14/2010 POTASSIUM 4.2 05/18/2024 POTASSIUM 4.3 01/14/2010 CHLORIDE 105 05/18/2024 CHLORIDE 105 01/14/2010 CO2 22 05/18/2024 CO2 25 01/14/2010 BUN 23.5 (H) 05/18/2024 CR 0.84 05/18/2024 GLC 112 (H) 08/07/2024 GLC 85 05/18/2024 COAGS: Lab Results Component Value Date PTT 28 01/14/2010 INR 0.86 01/14/2010 POC: Lab Results Component Value Date BGM 103 (H) 12/20/2015 HCG Negative 12/19/2015 HEPATIC: Lab Results Component Value Date ALBUMIN 4.3 05/18/2024 PROTTOTAL 7.3 05/18/2024 ALT 22 05/18/2024 AST 23 05/18/2024 ALKPHOS 109 05/18/2024 BILITOTAL 0.2 05/18/2024 OTHER: Lab Results Component Value Date A1C 6.1 (H) 05/18/2024 ELIS 9.2 05/18/2024 TSH 1.47 05/18/2024 Anesthesia Plan ASA Status: 3 Anesthesia Type: General. - Airway: ETT Induction: Intravenous. Maintenance: Inhalation. Consents Anesthesia Plan(s) and associated risks, benefits, and realistic alternatives discussed. Questions answered and patient/ict sales representative(s) expressed understanding. - Discussed: Risks, Benefits and Alternatives for BOTH SEDATION and the PROCEDURE were discussed - Discussed with: Patient - Extended Intubation/Ventilatory Support Discussed: No. - Patient is DNR/DNI Status: No Use of blood products discussed: No . Postoperative Care Pain management: IV analgesics. Comments: Aubrey Gutierrez MD I have reviewed the pertinent notes and labs in the chart from the past 30 days and (re)examined the patient. Any updates or changes from those notes are reflected in this note. # Hypertension: Home medication list includes antihypertensive(s) # Severe Obesity: Estimated body mass index is 47.86 kg/m?? as calculated from the following: Height as of 07/19/24: 1.651 m (5' 5). Weight as of this encounter: 130.5 kg (287 lb 9.6 oz). [facility] COP documented in this encounter Miscellaneous Notes * Anesthesia Care Transfer Note - Lazarus Sheets APRN CRNA - 08/07/2024 1:25 PM CST Patient: Sofia Iyer Procedure: Procedure(s): CREATION, GASTRIC BYPASS, SRIDHAR-EN-Y, LAPAROSCOPIC Diagnosis: Morbid obesity (H) [E66.01] Duodenal stricture [K31.5] Diagnosis Additional Information: No value filed. Anesthesia Type: General Note: Oropharynx: oropharynx clear of all foreign objects and spontaneously breathing Level of Consciousness: drowsy Oxygen Supplementation: face mask Independent Airway: airway patency not satisfactory and stable Dentition: dentition unchanged Vital Signs Stable: post-procedure vital signs reviewed and stable Report to RN Given: handoff report given Patient transferred to: PACU Handoff Report: Identifed the Patient, Identified the Reponsible Provider, Reviewed the pertinent medical history, Discussed the surgical course, Reviewed Intra-OP anesthesia mangement and issues during anesthesia, Set expectations for post-procedure period and Allowed opportunity for questions andacknowledgement of understanding Vitals: Vitals Value Taken Time BP 165/86 08/07/24 1316 Temp 98.0 Pulse 78 08/07/24 1323 Resp 12 08/07/24 1323 SpO2 95 % 08/07/24 1323 Vitals shown include unfiled device data. Electronically Signed By: Lazarus Sheets APRN CRNA August 07, 2024 1:25 PM [facility] COP documented in this encounter Plan of Treatment Upcoming Encounters Date Type Department Care Team (Late st Contact Info) Description 09/08/2024 11:00 AM UNDERCOVER COP [facility] [address] [place] [phone] Betty Leoanrdo, RD [address] [facility] [address] [place] [address] 11/06/2024 9:30 AM CDT Virtual Visit [facility] [address] [place] [address] Dung Alva, PhD [employer] [address] [place] [address] 11/07/2024 9:30 AM CDT Virtual Visit [facility] [address] [place] [address] Hien Flood, RD [address] [facility] [address] [place] [address] 02/08/2025 1:30 PM CDT Office Visit [facility] [address] [place] [address] Miriam Melton APRN CNP [address] [facility] [address] [place] [address] 05/09/2025 9:30 AM CDT Virtual Visit [facility] [address] [place] [address] Hien lFood ZEINAB [address] [facility] [address] [place] [address] 08/09/2025 1:30 PM UNDERCOVER COP Office Visit [facility] [place] [address] [facility] [address] [place] [address] Miriam Melton, DEE ARTIFICIAL INSEMINATOR [address] [facility] [address] [place] [address] documented as of this encounter Procedures Procedure Name Priority Date/Time Associated Diagnosis Comments ANE AIRWAY ETT PERFORMABLE Routine 08/07/2024 10:54 AM UNDERCOVER COP ANE SPINAL BLOCK FORM Routine 08/07/2024 10:24 AM UNDERCOVER COP documented in this encounter Results * ANE AIRWAY ETT PERFORMABLE (08/07/2024 10:54 AM UNDERCOVER COP) Narrative Lazarus Sheets APRN CRNA - 08/07/2024 10:54 AM UNDERCOVER COP Lazarus Sheets APRN CRNA 08/07/2024 11:10 AM Airway Patient location during procedure: OR Procedure Start/Stop Times: 08/07/2024 10:54 AM Staff - BEHAVIORAL ASSISTANT: Lazarus Sheets APRN CRNA Performed By: BEHAVIORAL ASSISTANT Consent for Airway Urgency: elective Indications and [...] 08/07/2024 10:54 AM us Aubrey Gutierrez MD OR ANESTHESIA Final Resul t * Spinal Block (08/07/2024 10:24 AM UNDERCOVER COP) Narrative Aubrey Gutierrez MD - 08/07/2024 10:24 AM UNDERCOVER COP Aubrey Gutierrez MD 08/07/2024 10:25 AM Intrathecal [...] Medication Administration Time: 08/07/2024 10:24 AM FOR [facility] ([facility]) ONLY: Pain Team Contact information: please page the Pain Team Via [employer]. Search Pain. During daytime hours, please page the attending first. At night please page the resident first. us Aubrey Gutierrez MD OR ANESTHESIA Final Resul t documented in this encounter Visit Diagnoses Not on filedocumented in this encounter Administered Medications Inactive Administered Medications - up to 3 most recent administrations Medication Order MAR Action Action Date Dose Rate Site ceFAZolin Sodium (ANCEF) injection 3 g Routine, 3 g, Intravenous, PRE-OP/PRE-PROCEDURE, Starting on Wed08/07/24 at 0902, For 1 dose, Give first dose within 1 hour PRIOR to incision., Indications: Perioperative Pharmacoprophylaxis, Pre-procedureIndications:Perioperati ve Pharmacoprophylaxis $Given 08/07/2024 10:59 AM UNDERCOVER COP 3 g dexAMETHasone PF (DECADRON) injection Intravenous, PRN, Administer over 1 Minutes, Starting on Wed08/07/24 at 1104, Anesthesia Intra-op $Given 08/07/2024 11:04 AM UNDERCOVER COP 10 mg dexmedeTOMIDine (PRECEDEX) bolus 200 mcg Intravenous, CONTINUOUS PRN, Starting on Wed08/07/24 at 1104, Anesthesia Intra-op $Bolus 08/07/2024 11:38 AM UNDERCOVER COP 4 mcg $Bolus 08/07/2024 11:30 AM UNDERCOVER COP 4 mcg $Bolus 08/07/2024 11:22 AM UNDERCOVER COP 4 mcg fentaNYL (PF) (SUBLIMAZE) injection Intravenous, PRN, Administer over 3-5 Minutes, Starting on Wed08/07/24 at 1053, Anesthesia Intra-op $Given 08/07/2024 10:53 AM UNDERCOVER COP 100 mcg glycopyrrolate (ROBINUL) injection Intravenous, PRN, Administer over 1-2 Minutes, Starting on Wed08/07/24 at 1107, Anesthesia Intra-op $Given 08/07/2024 11:07 AM UNDERCOVER COP 0.3 mg heparin ANTICOAGULANT injection 5,000 Units 5,000 Units, Subcutaneous, ONCE, On Wed08/07/24 at [...] for line flush or cath care., Pre-procedure $Given 08/07/2024 10:46 AM UNDERCOVER COP 5,000 Units ketamine (KETALAR) injection Intravenous, PRN, Administer over 2-5 Minutes, Starting on Wed08/07/24 at 1122, Anesthesia Intra-op $Given 08/07/2024 11:53 AM UNDERCOVER COP 10 mg $Given 08/07/2024 11:44 AM UNDERCOVER COP 20 mg $Given 08/07/2024 11:25 AM UNDERCOVER COP 10 mg lactated ringers infusion at 100 mL/hr, Intravenous, CONTINUOUS, Pre-procedure, Starting on Wed08/07/24 at 0930, Until Wed08/07/24 at 1314 Restarted 08/07/2024 10:51 AM UNDERCOVER COP $New Bag 08/07/2024 9:32 AM UNDERCOVER COP 100 mL/hr lidocaine 1 % injection Intravenous, PRN, Starting on Wed08/07/24 at 1053, Anesthesia Intra-op $Given 08/07/2024 10:53 AM UNDERCOVER COP 5 mLs morphine (PF) (DURAMORPH) injection Intrathecal, ONCE PRN WITHIN 24 HRS, Administer over 4-5 Minutes, Starting on Wed08/07/24 at 1024, For 1 dose, Anesthesia Intra-op $Given 08/07/2024 10:24 AM UNDERCOVER COP 0.2 mg ondansetron (ZOFRAN) injection Intravenous, PRN, Administer over 2-5 Minutes, Starting on Wed08/07/24 at 1155, Anesthesia Intra-op $Given 08/07/2024 11:55 AM UNDERCOVER COP 4 mg propofol (DIPRIVAN) infusion Intravenous, CONTINUOUS PRN, Starting on Wed08/07/24 at 1054, Anesthesia Intra-op $New Bag 08/07/2024 10:54 AM UNDERCOVER COP 30 mcg/kg/min 23.49 mL/hr propofol (DIPRIVAN) injection 10 mg/mL vial Intravenous, PRN, Starting on Wed08/07/24 at 1053, Anesthesia Intra-op $Given 08/07/2024 10:53 AM UNDERCOVER COP 200 mg rocuronium injection Intravenous, PRN, Starting on Wed08/07/24 at 1053, Anesthesia Intra-op $Given 08/07/2024 11:45 AM UNDERCOVER COP 40 mg $Given 08/07/2024 11:31 AM UNDERCOVER COP 10 mg $Given 08/07/2024 10:53 AM UNDERCOVER COP 50 mg sodium chloride 0.9 % infusion Intravenous, CONTINUOUS PRN, Anesthesia Intra-op, Starting on Wed08/07/24 at 1220, Until Wed08/07/24 at 1318 $New Bag 08/07/2024 12:20 PM UNDERCOVER COP sugammadex (BRIDION) injection Intravenous, PRN, Starting on Wed08/07/24 at 1239, Anesthesia Intra-op $Given 08/07/2024 12:39 PM UNDERCOVER COP 400 m g documented in this encounter Additional Health Concerns Assessment Noted Time PHQ-9 Depression Total Score: 2 05/07/20 21 11:37 AM CDT documented as of this encounter Care Teams Pitch Filler Relationship Specialty Start Date End Date Herson Rhodes MD PCP - General 06/02/11 [facility] [address] [place] [address] Assigned PCP 12/14/[address] [place] [address] [place] [id number] Registered Dietitian Dietitian, Registered 06/09/24 Dung Alva, PhD [employer] [facility] [address] [address] Assigned Behavioral Health Provider 06/14/24 Aris Thurman MD [address] [place] [id number] Assigned Surgical Provider 07/15/24 Miriam Melton APRN ARTIFICIAL INSEMINATOR [address] [place] [id number] Nurse Practitioner Surgery 07/19/24 documented as of this encounter
--- OUTSIDE RECORDS SUMMARY | 2024-09-02 08:27 | XMS_ITS | Encounter Summary ---
Author Organization [facility] Address [address] [place] [address]. [place] [address] Care Team Providers Care Prototyper Name Role Phone Herson Rhodes MD Primary Care Provider [facility] Unavailabl e Ed Saenz MD Unavailable [phone] Unavailable [phone] Miriam Melton APRN GOVERNMENT RELATIONS DIRECTOR Unavailable + [phone] Dung Alva PhD Unavailable Aris Thurman MD Unavailable [phone] Miriam Melton APRN GOVERNMENT RELATIONS DIRECTOR Unavailable + [phone] Encounter Details Date Type Department Care Team (Late st Contact Info) Description 06/01/2024 MyC Medical Advice [facility] [address] [address] Litzy Hall, RN Social History [...] PM CDT Legal Sex Female 5:06 AM CYBER ANALYST Gender Identity Female 04/04/2021 10:28 PM CDT Sexual Orientation Straight 04/04/2021 10 :28 PM CDT documented as of this encounter Plan of Treatment Upcoming Encounters Date Type Department Care Team (Late st Contact Info) Description 09/08/2024 11:00 AM CYBER ANALYST Virtual Visit [facility] [address] 200 [place] [address] Betty Leonardo, RD 2945 [facility] 200 [place] [address] 11/06/2024 9:30 AM CDT Virtual Visit [facility] [address] 200 [place] [address] Dung Alva, PhD [employer]NA [employer] [facility] [address] [facility] 200 [place] [address] 11/07/2024 9:30 AM CDT Virtual Visit [facility] [address] 200 [place] [address] Hien Flood, RD 2945 [facility] 200 [place] [address] 02/08/2025 1:30 PM CDT Office Visit [facility] [address] 200 [place] [address] Miriam Melton, DEE GOVERNMENT RELATIONS DIRECTOR 2945 [facility] 200 [place] [address] 05/09/2025 9:30 AM CDT Virtual Visit [facility] [address] 200 [place] [address] [place] [address] 200 [place] [address] 08/09/2025 1:30 PM CYBER ANALYST Office Visit [facility] [address] 200 [place] [address] Miriam Melton APRN GOVERNMENT RELATIONS DIRECTOR [address] [place] [address] documented as of this encounter Visit Diagnoses Not on filedocumented in this encounter Additional Health Concerns Assessment Noted Time PHQ-9 Depression Total Score: 2 05/07/20 21 11:37 AM CDT documented as of this encounter Care Teams Prototyper Relationship Specialty Start Date End Date Herson Rhodes MD PCP - General 06/02/11 [facility] [address] [place] [address] Assigned PCP 12/14/23 Ed Saenz MD [address] [place] [address] 300 [place] [address] Assigned Surgical Provider 05/15/24 06/13/[address] [place] [address] 200 [place] [address] Registered Dietitian Dietitian, Registered 06/09/24 Miriam Melton APRN GOVERNMENT RELATIONS DIRECTOR [address] [place] [address] Assigned Surgical Provider 06/14/24 07/14/24 Dung Alva, PhD [employer] [facility] 500 [facility] 200 [place] [address] Assigned Behavioral Health Provider 06/14/24 Aris Thurman MD [address] [place] [address] 200 [place] [address] Assigned Surgical Provider 07/15/24 Miriam Melton APRN GOVERNMENT RELATIONS DIRECTOR [facility] 200 [place] [address] Nurse Practitioner Surgery 07/19/24 documented as of this encounter
--- OUTSIDE RECORDS SUMMARY | 2024-09-02 08:27 | XMS_ITS | Encounter Summary ---
Author Organization [facility] Address [address] [place] [address] Care Team Providers Care Evaporator Helper Name Role Phone Herson Rhodes MD Primary Care Provider [facility] Unavailabl e Hien Flood [address] Unavailable [phone] Dung Alva PhD Unavailable [phone] Aris Thurman MD Unavailable Miriam Melton APRN BACK TENDER Unavailable [phone] Reason for Referral * Diagnostic Imaging XR (Routine) - Pending Review Specialty Diagnoses / Procedures [facility] To Contact Radiology. Diagnoses Morbid obesity (H) Pre-op testing Procedures XR Chest 2 Views Miriam Melton APRN CNP [address] [facility] 200 [place] [address] Phone: tel: fax: Referral ID Status Reason Start Date Expiration Date V isits Requested Visits Authorized [id number] Pending Review 07/19/2024 07/19/2025 1 1 LE FILLER * (Routine) - Pending Review Specialty Diagnoses / Procedures Referred By Contac t Referred To Contact Diagnoses Morbid obesity (H) Pre-op testing Procedures UA with Microscopic reflex to Culture Miriam Melton APRN CNP [address] [facility] [address] [place] [address] Phone: tel: fax: Referral ID Status Reason Start Date Expiration Date V isits Requested Visits Authorized [id number] Pending Review 07/19/2024 07/19/2025 1 1 LE FILLER * (Routine) - Pending Review Specialty Diagnoses / Procedures Referred By Contac t Referred To Contact Diagnoses Morbid obesity (H) Pre-op testing Procedures Partial thromboplastin time Miriam Melton APRN CNP [address] [place] [address] 200 [place] [address] Phone: tel: fax: Referral ID Status Reason Start Date Expiration Date V isits Requested Visits Authorized [id number] Pending Review 07/19/2024 07/19/2025 1 1 LE FILLER * (Routine) - Pending Review Specialty Diagnoses / Procedures Referred By Contac t Referred To Contact Diagnoses Morbid obesity (H) Pre-op testing Procedures INR Miriam Melton APRN CNP [address] [place], [place] [address] Phone: tel: fax: Referral ID Status Reason Start Date Expiration Date V isits Requested Visits Authorized [id number] Pending Review 07/19/2024 07/19/2025 1 1 LE FILLER * (Routine) - Pending Review Specialty Diagnoses / Procedures Referred By Contac t Referred To Contact Diagnoses Morbid obesity (H) Pre-op testing Procedures EKG 12-lead complete w/read - Clinics Miriam Melton APRN CNP [address] [place] [address] 200 [place] [address] Phone: tel: fax: Referral ID Status Reason Start Date Expiration Date V isits Requested Visits Authorized [id number] Pending Review 07/19/2024 07/19/2025 1 1 LE FILLER * (Routine) - Pending Review Specialty Diagnoses / Procedures Referred By Contac t Referred To Contact Diagnoses Morbid obesity (H) Pre-op testing Procedures Comprehensive metabolic panel Miriam Melton APRN CNP [address] [place] [address] Phone: tel: fax: Referral ID Status Reason Start Date Expiration Date V isits Requested Visits Authorized [id number] Pending Review 07/19/2024 07/19/2025 1 1 LE FILLER * (Routine) - Pending Review Specialty Diagnoses / Procedures Referred By Contac t Referred To Contact Diagnoses Morbid obesity (H) Pre-op testing Procedures CBC with Platelets & Differential Miriam Melton APRN CNP [address] [place] [address] Phone: tel: fax: Referral ID Status Reason Start Date Expiration Date V isits Requested Visits Authorized [id number] Pending Review 07/19/2024 07/19/2025 1 1 LE FILLER Reason for Visit * Reason Comments Bariatric Pre-op Class Pt Ed Encounter Details Date Type Department Care Team (Latest Contact Info) Description 07/19/2024 12:30 PM BOTTLE FILLER Allied Health/Nurse Visit [facility] [address] [phone] Bariatric (Pre-op Class/); Pt Ed Social History [...] PM CDT Legal Sex Female 5:06 AM BOTTLE FILLER Gender Identity Female 04/04/2021 10:28 PM CDT Sexual Orientation Straight 04/04/2021 10 :28 PM CDT documented as of this encounter Last Filed Vital Signs Vital Sign Reading Time Taken Comments Blood Pressure - - Pulse - - Temperature - - Respiratory Rate - - Oxygen Saturation - - Inhaled Oxygen Concentration - - Weight 133.8 kg (295 lb) 07/19/2024 2:41 PM BOTTLE FILLER Height 165.1 cm (5' 5) 07/19/2024 2:41 PM BOTTLE FILLER Body Mass Index 49.09 07/19/2024 2:41 PM BOTTLE FILLER documented in this encounter Patient Instructions * Patient Instructions* Viktoriya Arce RN - 07/19/2024 12:30 PM BOTTLE FILLER Patient name: Sofia Iyer Surgery: Nancy-En-Y Gastric Bypass Surgery Date: 08/07/2024 Surgery Time: [...] We can't give an exact time for supervisor opening and picking because it depends on how you are [...] that were sent to your pharmacy - [address] [[id number]] NEW PRESCRIPTIONS: In preparation for surgery, we have prescribed some medication that you will need to supervisor opening and picking as soon as possible A. Vitamins: Chewable [...] take the morning of surgery. B. Acid Room Service Clerk: Omeprazole (Prilosec) - If not already taking, [...] a diuretic Herbal supplements Fish oil or Severance 3 Homeopathic remedies 7 Days (One Week) [...] Duloxetine (Brand Name: Cymbalta) Not recommended by weather strip mechanic to open capsule. However, some patients have [...] current medication list OR update list in [employer] (including vitamins, kbbe-gah-hqsvyrx medication, eye drops, inhalers, patches, ointments and [...] comb, skin care products, deodorant, make-up, and anthropology department chair. If you wear a hearing aid, bring [...] your scheduled surgery time. Showering Before Surgery [email or web address] Preparing Your Skin [email or web address] HOSPITAL STAY Park in the [facility] Visitor Parking Lot in [place] and check in at the information desk where they will escort you to the [facility]. You will be allowed to have 2 support people with you in the pre-operative area at the hospital. After surgery on the recovery unit, you can have up to 4 visitors and they must leave when visitor hours are over. Meet your surgical team which includes an RN, HOUSING MANAGER, anesthesiologist and your surgeon. IV will be [...] a private room. has been awarded an [employer] Center of Excellence partnered with the [employer] Bariatric [employer] and [...] by your surgeon, nurse practitioner or physician???s blood bank assistant, anesthesia, and possibly a pharmacist. A [...] body be your guide. Can be the ???administrative project coordinator?? in terms of chores at home. Pushing [...] (can be done before or after surgery) [email or web address] Exercise Guidelines after Weight Loss Surgery (1st 4-6 weeks) [email or web address] Exercises after Weight Loss Surgery (strengthening, when no weight lifting restrictions - after 4-6weeks) [email or web address] MEDICATIONS AFTER SURGERY Here is a simple [...] would like. 1.) Sublingual Vitamin B12: Take 2730-3330 mcg 1 time daily Also available in [...] Daily, or Chewy Bites (250 mg)--4 Daily www.Siminars.X5 Group or Celebrate Calcium: Calcium Plus 500 (500mg)--2 Daily, or Calcet Creamy Bites (500 mg)--2 Daily, or Calcium Citrate Chews (250mg) - 4 Daily www.LoveBytesLivescribe or UNJURY Opurity: Calcium Citrate Plus (300mg)--3 Daily www.Skylabs or Up-Brody D: Nutrition Direct: Flavorless Calcium Powder (500 mg with 250 IU Vitamin D) www.[facility] or --3 Scoops Daily Wellesse Liquid Calcium Citrate--1 Tbsp. (500 mg)--2 Times Daily Axial Exchange After 3 months post op: Citracal Petites [...] headache, and arthritis. Some NSAIDs are available baui-pun-ttthmzl while others need a prescription from your doctor. NSAIDs should be avoided after bariatric surgery because they can cause stomach ulcers, scarring orbleeding. You will not be able to take any NSAID mediation for the rest of your life after bariatric surgery. Below is a list of common NSAID medications: [id number] NSAIDs Ibuprofen - Brand names Advil ?? [...] does not control your pain, call [facility] provider to discuss other options. [...] and products. After Bariatric Surgery Discharge Instructions [facility] Comprehensive Weight Management Note: Ask your nurse [...] still healing. We will prescribe an acid service cashier or antacid. Take it as directed. This will help prevent ulcers, heartburn and acid reflux. If you took an acid service cashier before you had surgery, your care team will let you know what acid service cashier you will take after surgery. It is [...] mouth Call the clinic ANY TIME at [phone] if: -Your pain medicine is not working. [...] appointment was not already made, please call: [phone] IMPORTANT PHONE NUMBERS: Bariatric Nurse line (M-F 8am to 4:30pm)=[phone] Main line (after hours/holidays/weekends)=[phone] These are some additional handouts that are very important to read through and use after surgery. They are good tools for after your surgery as you recover. After Your Weight Loss Surgery [email or web address] Mindfulness Meditation Https://www.[email or web address] Conscious Breathing Https://www.[email or web address]/[email or web address] Keeping Track of Your Fluids (for after surgery) https://www.[email or web address] AFTER SURGERY APPOINTMENT SCHEDULE 1 week with Dietitian (ZEINAB) Dietitian Virtual Group Class scheduled for Wednesday08/15/2024 from 1-2 pm with one of the dietitians. She will send you an email invitation to join the week of this class and the purpose of it is tocheck in with you and give you the next set of dietary instructions. It will be using Referanza.com, NOT in person or through Medlert. 2 weeks with Surgeon Surgeon video follow-up visit that will be done through Medlert which is already scheduled for you. 1 [...] Hall RN and Viktoriya Arce RN [facility] Surgery [facility] Bariatric Care [address] [facility], [address] LE FILLER documented in this encounter Progress Notes * [...] understanding. She will have her H&P at [facility] on 07/31/2024 with Herson Rhodes MD and do her pre-op testing at that visit. Orders faxed to [phone] as well as handed to pt in class. Prescriptions for Actigall and vitamins sent to the patient's pharmacy to be started after surgery. Viktoriya Arce RN, CBN [facility] P [phone] F [phone] LE FILLER * Betty Leonardo RD - 07/19/2024 12:30 PM CST Pt attended the pre-surgery class for bariatric surgery class and was educated on the pre and post surgery liquid diets. Patient received information via eTelemetry for the pre-op liquid diet and the [...] and soft/regular diet stages. Betty Leonardo RD LE FILLER documented in this encounter Plan of Treatment Upcoming Encounters Date Type Department Care Team (Late st Contact Info) Description 09/08/2024 11:00 AM BOTTLE FILLER Virtual Visit [facility] Surgery [facility] and [facility] Care [address] [address] Betty [address] [facility] [address] 11/06/2024 9:30 AM CDT Virtual Visit [facility] and [facility] Care [address] [address] Dung Alva, PhD [employer]ONNA [employer] [address] [place], [place] [address] 11/07/2024 9:30 AM CDT Virtual Visit [facility] and [facility] Care [address] [phone] [address] [facility] 200 [place] [address] 02/08/2025 1:30 PM CDT Office Visit [facility] and [facility] Care [address] 200 [place] [address] Miriam Melton APRN BACK TENDER [address] [place] [address] 200 [place] [address] 05/09/2025 9:30 AM CDT Virtual Visit [facility] [address] 200 [place] [address] Hien Flood, ZEINAB [address] [facility] 200 [place] [address] 08/09/2025 1:30 PM BOTTLE FILLER Office Visit [facility] [address] 200 [place] [address] Miriam Melton APRN BACK TENDER [address] [place] [address] Scheduled Orders Name Type Priority Associated Diagnoses [...] Pre-op testing Expected: 07/31/2024 (Approximate), Expires: 07/19/2025 documented as of this encounter Visit Diagnoses Diagnosis Encounter for pre-bariatric surgery counseling and education- Primary Morbid obesity (H) Morbid obesity Pre-op testing Preoperative examination, unspecified S/P bariatric surgery Bariatric surgery status Intestinal malabsorption, unspecified type Rapid weight loss Loss of weight documented in this encounter Additional Health Concerns Assessment Noted Time PHQ-9 Depression Total Score: 2 05/07/20 21 11:37 AM CDT documented as of this encounter Care Teams Evaporator Helper Relationship Specialty Start Date End Date Herson Rhodes MD PCP - General 06/02/11 [facility] [id number] [place] [address] Assigned PCP 12/14/[address] [facility] 200 [place] [address] Registered Dietitian Dietitian, Registered 06/09/24 Dung Alva, PhD [employer] [address] [place], [place] [address] Assigned Behavioral Health Provider 06/14/24 Aris Thurman MD [address] [facility] 200 [place] [address] Assigned Surgical Provider 07/15/24 Miriam Melton APRN BACK TENDER 29[address] [facility] 200 [place], [place] [address] Nurse Practitioner Surgery 07/19/24 documented as of this encounter
--- OUTSIDE RECORDS SUMMARY | 2024-09-02 08:27 | XMS_ITS | Encounter Summary ---
Author Organization [facility] Address [address] [place] [address]. [place] [address] Care Team Providers Care Full Charge Bookkeeper Name Role Phone Herson Rhodes MD Primary Care Provider [facility] Unavailabl e Hien Flood RD Unavailable Miriam Melton APRN MEDICAL RECORDS CLERK Unavailable Dung Alva PhD Unavailable [phone] Aris Thurman MD Unavailable [phone] Miriam Melton APRN MEDICAL RECORDS CLERK Unavailable Encounter Details Date Type Department Care Team (Late st Contact Info) Description 06/14/2024 MyC Medical Advice [facility] Social History Tobacco Use Types Packs/Day Years [...] PM CDT Legal Sex Female 5:06 AM SMALL ENGINE MECHANIC Gender Identity Female 04/04/2021 10:28 PM CDT Sexual Orientation Straight 04/04/2021 10 :28 PM CDT documented as of this encounter Plan of Treatment Upcoming Encounters Date Type Department Care Team (Late st Contact Info) Description 09/08/2024 11:00 AM SMALL ENGINE MECHANIC Virtual Visit [facility] Surgery Clinic and Bariatrics Care [address] 200 [place] [address] Betty Leonardo, RD 2945 [facility] 200 [place] [address] 11/06/2024 9:30 AM CDT Virtual Visit [facility] [address] 200 [place] [address] Dung Alva, PhD [employer] [facility] [address] [place] [address] 11/07/2024 9:30 AM CDT Virtual Visit [facility] and [facility] Care [address] 200 [place] [address] Hien Flood, RD 2945 [facility] 200 [place] [address] 02/08/2025 1:30 PM CDT Office Visit [facility] [address] 200 [place] [address] Miriam Melton, GOLF COURSE DESIGNER MEDICAL RECORDS CLERK 29[address] [facility] 200 [place] [address] 05/09/2025 9:30 AM CDT Virtual Visit [facility] [address] 200 [place] [address] Hien Flood, RD 2945 [facility] 200 [place] [address] 08/09/2025 1:30 PM SMALL ENGINE MECHANIC Office Visit [facility] [place] [address] [place] [address] 200 [place] [phone] Miriam Melton APRN MEDICAL RECORDS CLERK [address] [place] [address] documented as of this encounter Visit Diagnoses Not on filedocumented in this encounter Additional Health Concerns Assessment Noted Time PHQ-9 Depression Total Score: 2 05/07/20 21 11:37 AM CDT documented as of this encounter Care Teams Full Charge Bookkeeper Relationship Specialty Start Date End Date Herson Rhodes MD PCP - General 06/02/11 [facility] [address] [place] [address] Assigned PCP 12/14/[address] [place] [address] Registered Dietitian Dietitian, Registered 06/09/24 Miriam Melton APRN MEDICAL RECORDS CLERK [address] [place] [address] Assigned Surgical Provider 06/14/24 07/14/24 Dung Alva, PhD [employer] [facility] [address] [facility] 200 [place] [address] Assigned Behavioral Health Provider 06/14/24 Aris Thurman MD [address] [place] [address] 200 [place] [address] Assigned Surgical Provider 07/15/24 Miriam Melton APRN MEDICAL RECORDS CLERK [address] [place] [address] 200 [place] [address] Nurse Practitioner Surgery 07/19/24 documented as of this encounter
--- OUTSIDE RECORDS SUMMARY | 2024-09-02 08:27 | XMS_ITS | Encounter Summary ---
Author Organization [facility] Address [address] [place] [address]. [place] [address] Care Team Providers Care Technician Biological Health Name Role Phone Herson Rhodes MD Primary Care Provider Alan Shah MD Unavailable [phone] Betty Stevens NP Unavailable Unavailable [facility] Unavailabl e Ed Saenz MD Unavailable [phone] Unavailable [phone] Miriam Melton APRN INSULATION MANAGER Unavailable + [phone] Dung Alva PhD Unavailable [phone] Aris Thurman MD Unavailable [phone] Miriam Melton APRN INSULATION MANAGER Unavailable + [phone] Encounter Details Date Type Department Care Team (Late st Contact Info) Description 12/05/2019 MyC Medical Advice [facility] [address] [phone] Radha Roblero MD [address] [facility] [address] [place] [address] Social History Tobacco Use Types [...] PM CDT Legal Sex Female 5:06 AM SPORTS PHYSIOTHERAPIST Gender Identity Female 04/04/2021 10:28 PM CDT Sexual Orientation Straight 04/04/2021 10 :28 PM CDT documented as of this encounter Plan of Treatment Upcoming Encounters Date Type Department Care Team (Late st Contact Info) Description 09/08/2024 11:00 AM SPORTS PHYSIOTHERAPIST Virtual Visit [facility] [address] [place] [phone] Betty Leonardo, RD [address] [facility] 200 [place] [address] 11/06/2024 9:30 AM CDT Virtual Visit [facility] [address] [phone] Dung Alva, PhD [employer] [facility] [address] [address] 11/07/2024 9:30 AM CDT Virtual Visit [facility] [address] [phone] Hien Flood, RD [address] [address] 02/08/2025 1:30 PM CDT Office Visit [facility] [address] [phone] Miriam Melton, DEE INSULATION MANAGER [facility]ly [facility] [address] 05/09/2025 9:30 AM CDT Virtual Visit [facility] [place] [address] [place] [address] 200 [place] [phone] Hien Flood, RD 2945 [facility] 200 [place], [place] [id number] 08/09/2025 1:30 PM SPORTS PHYSIOTHERAPIST Office Visit [facility] [place] [address] [facility] 200 [place] [phone] Miriam Melton APRN CNP [address] [place] [address] 200 [place], [place] [phone] documented as of this encounter Visit Diagnoses Not on filedocumented in this encounter Additional Health Concerns Assessment Noted Time PHQ-9 Depression Total Score: 10 019 2:14 PM SPORTS PHYSIOTHERAPIST documented as of this encounter Care Teams Technician Biological Health Relationship Specialty Start Date End Date Herson Rhodes MD PCP - General 06/02/11 [place] [address] [place] [address] Assigned OBGYN Provider 06/14/20 Betty Stevens NP Assigned PCP 01/28/23 12/13/23 Clinic - [facility] [address] [place] [address] Assigned PCP 12/14/23 Ed Saenz MD [address] [place] [address] [address] [place], [place] [phone] Assigned Surgical Provider 05/15/24 06/13/[address] [place] [address] Registered Dietitian Dietitian, Registered 06/09/24 Miriam Melton APRN INSULATION MANAGER [address] [place] [address] Assigned Surgical Provider 06/14/24 07/14/24 Dung Alva, PhD [facility] [address] [address] Assigned Behavioral Health Provider 06/14/24 Aris Thurman MD [address] [place] [address] Assigned Surgical Provider 07/15/24 Miriam Melton APRN INSULATION MANAGER [address] [place] [address] Nurse Practitioner Surgery 07/19/24 documented as of this encounter
--- OUTSIDE RECORDS SUMMARY | 2024-09-02 08:28 | XMS_ITS | Referral Summary ---
Author Organization [facility] Address [address] [place] [address] Care Team Providers Care Polishing Machine Operator Name Role Phone Unavailable Primary Care Provider Unavailabl e Source Comments Patient records contain information from all sites at [facility]. For routine questions regarding patient records, call [phone] during business hours, M-F 8:00 AM - 5:00 PM Central Time. Record requests for emergency care only can be directed to [phone] at any time.[facility] Immunizations Name Administration Dates Next [...] on file Legal Sex Female 9:22 AM MICA MINER BLASTING Gender Identity Not on file Sexual Orientation Not on file Last Filed Vital Signs Vital Sign Reading Time Taken Comments Blood Pressure 122/80 07/01/2015 11:34 AM MICA MINER BLASTING Pulse 80 07/01/2015 11:34 AM MICA MINER BLASTING Temperature - - Respiratory Rate 14 07/01/2015 11:34 AM MICA MINER BLASTING Oxygen Saturation - - Inhaled Oxygen Concentration - - Weight 104 kg (229 lb 4.5 oz) 07/01/2015 11:34 A M MICA MINER BLASTING Height 166 cm (5' 5.35) 07/29/2015 2:10 PM MICA MINER BLASTING Body Mass Index 37.74 07/01/2015 11:34 AM MICA MINER BLASTING Plan of Treatment Not on file Insurance [facility]
--- OUTSIDE RECORDS SUMMARY | 2024-09-02 08:28 | XMS_ITS | Clinical Summary ---
Author Organization [facility] Address [address] [place] [address] Care Team Providers Care Radio Talk Show Host Name Role Phone Unavailable Primary Care Provider Unavailabl e Source Comments Patient records contain information from all sites at [facility]. For routine questions regarding patient records, call [phone] during business hours, M-F 8:00 AM - 5:00 PM Central Time. Record requests for emergency care only can be directed to [phone] at any time.[facility] Immunizations Name Administration Dates Next Due DTaP [...] on file Legal Sex Female 9:22 AM APPOINTMENT MANAGER Gender Identity Not on file Sexual Orientation Not on file Last Filed Vital Signs Vital Sign Reading Time Taken Comments Blood Pressure 122/80 07/01/2015 11:34 AM APPOINTMENT MANAGER Pulse 80 07/01/2015 11:34 AM APPOINTMENT MANAGER Temperature - - Respiratory Rate 14 07/01/2015 11:34 AM APPOINTMENT MANAGER Oxygen Saturation - - Inhaled Oxygen Concentration - - Weight 104 kg (229 lb 4.5 oz) 07/01/2015 11:34 A M APPOINTMENT MANAGER Height 166 cm (5' 5.35) 07/29/2015 2:10 PM APPOINTMENT MANAGER Body Mass Index 37.74 07/01/2015 11:34 AM APPOINTMENT MANAGER Plan of Treatment Health Maintenance Due Date [...] age to complete this topic Pneumococcal vaccine (0-49 years) Aged Out No longer eligible based on patient's age to complete this [place] [place] [id number] [employer]
--- OUTSIDE RECORDS SUMMARY | 2024-09-02 08:28 | XMS_ITS ---
Author Organization [facility] Address [address] [place] [address] Care Team Providers Care Incinerator Plant Laborer Name Role Phone Unavailable Unavailable Unavailable Surgery Details Not on file Complications Check Surgery Details section. Procedure Estimated Blood Loss Check Surgery Details section. Procedure Findings Check Surgery Details section. Procedure Specimens Taken Check Surgery Details section.
[2024-09-02 08:31] VITALS: BP 125/77; PULSE 79; RESP 18; TEMP 35.8; O2SAT 97; BMI 45.3
--- NOTE | 2024-09-02 08:39 | CRLHL7_ITS ---
For Patients: As a result of the Cures Act, medical imaging exams and procedure reports are released immediately into your electronic medical record. You may view this report before your referring provider. If you have questions, please contact your health care provider. INDICATION: Fall on steps. Great toe and 1st metatarsal pain and bruising. TECHNIQUE: Three views of the right foot. COMPARISON: Right foot radiographs 07/21/2023. FINDINGS : There is a comminuted, nondisplaced fracture of the proximal phalanx of the great toe. No evidence of 1st metatarsal fracture There is soft tissue swelling about the great toe and along the dorsum of the foot. Orthopedic fixation of the 5th metatarsal and old healed 5th metatarsal fracture. Small plantar calcaneal spur. Joint spaces are preserved. IMPRESSION: Comminuted, nondisplaced fracture of the proximal phalanx of the great toe with associated soft tissue swelling. Dictated by Caitlin Clemente MD @ 09/02/2024 9:20:32 AM (Electronically Signed)
--- NOTE | 2024-09-02 08:40 | ED_ITS ---
HPI - General Adult General Date Seen: 09/02/24 Chief complaint: Extremity Pain/Injury, Lower Stated complaint: fall/poss broken R big toe Time Seen by Provider: 09/02/24 08:34 History of Present Illness HPI narrative: 43-year-old female with a past medical history of elevated BMI, previous gastric bypass surgery (cannot take NSAIDs), type 2 diabetes, hypertension, GERD, IBS, and a history of a right foot 5th toe fracture last year which required operative pinning presenting to the ER today with concern for pain in her right foot, 1st toe. She was walking down the steps last Wednesday at about 8:00 p.m.. She was caring a box of pairs and so was not holding the hand rail on the steps. She missed the last step and fell forward. She thinks she either jammed her twisted her big toe. She she is not sure exactly how she hurt it but ever since then she has been having pain in the big toe, at the 1st MTP and also in the 1st metatarsal. She has been very painful for her. She has not really been able to bear weight on that part of foot but she can step down on her heel. She tried just rested overnight. She had 1 tramadol left over from her previous surgery so she took that. It was partially successful in helping her pain but she was having discomfort that was waking her up overnight. This morning the toes more painful and is now bruised so she came here to the ER. She notes that she bumped her knee when she fell but she does not think it is broken. She would not have come to the ER if her knee were her only injury. No other injuries in the fall. She did not hit her head. She is not anticoagulated. Related Data Home Medications ?Medication ?Instructions ?Recorded ?Confirmed duloxetine 30 mg capsule,delayed 30 mg PO DAILY 07/07/23 08/17/24 release estradiol 0.05 mg/24 hr semiweekly 1 patch transdermal 2XW 04/27/24 08/17/24 transdermal patch lamotrigine 150 mg tablet 150 mg PO DAILY 04/27/24 08/17/24 doxazosin 1 mg tablet 1 mg PO QDAY 07/31/24 08/17/24 mecobalamin (vitamin B12) 1,000 1,000 mcg PO QDAY 07/31/24 08/17/24 mcg lozenges pediatric [id number]-[id number] 1 tab PO BID 07/31/24 08/17/24 (Flintstones Complete (iron) chewable tablet) ursodiol 300 mg capsule 300 mg PO BID 07/31/24 08/17/24 Previous Rx's ?Medication ?Instructions ?Recorded duloxetine 60 mg capsule,delayed 60 mg PO QDAY #90 caps 02/11/23 release (Cymbalta) baclofen 20 mg tablet 40 mg (2 x 20 mg) PO TID 90 days 05/23/24 #540 tabs pregabalin 150 mg capsule 150 mg PO BID #60 caps 06/28/24 cetirizine 10 mg tablet (Zyrtec) 10 mg PO QDAY #90 tabs 08/28/24 metoprolol succinate 100 mg 100 mg PO QDAY #90 tabs 08/28/24 tablet,extended release 24 hr (Toprol XL) omeprazole 40 mg capsule,delayed 40 mg PO BID #180 caps 08/28/24 release topiramate 100 mg tablet 100 mg PO BID #180 tabs 08/28/24 hydrocodone 5 mg-acetaminophen 325 1 - 2 tab PO Q6H PRN pain #14 tabs 09/02/24 mg tablet Allergies Allergy/AdvReac Type Severity Reaction Status Date / Time levofloxacin (From Levaquin) Allergy Intermediate Gastrointestinal Verified 09/02/24 08:30 Upset prochlorperazine Allergy Intermediate Dystonia Verified 09/02/24 08:30 and restless legs promethazine Allergy Intermediate Dystonia Verified 09/02/24 08:30 celecoxib (From Celebrex) AdvReac gastric Verified 09/02/24 08:30 bypass ibuprofen AdvReac gastric Verified 09/02/24 08:30 bypass [facility] Medical History (Updated 09/02/24 @ 09:54 by Shamir Bentley MD) Morbid obesity ?E66.01 - Morbid (severe) obesity due to excess calories (ICD-10) Primary hypertension ?I10 - Essential (primary) hypertension (ICD-10) Major depressive disorder, recurrent episode, severe ?F33.2 - Major depressive disorder, recurrent severe without psychotic features (ICD-10) Pyloric stenosis in adult ?K31.1 - Adult hypertrophic pyloric stenosis (ICD-10) Trochanteric bursitis, left hip ?M70.62 - Trochanteric bursitis, left hip (ICD-10) Chronic SI joint pain ?M53.3 - Sacrococcygeal disorders, not elsewhere classified (ICD-10) ?G89.29 - Other chronic pain (ICD-10) GERD (gastroesophageal reflux disease) ?K21.9 - Gastro-esophageal reflux disease without esophagitis (ICD-10) Insomnia ?G47.00 - Insomnia, unspecified (ICD-10) IBS (irritable bowel syndrome) ?K58.9 - Irritable bowel syndrome without diarrhea (ICD-10) History of endometriosis ?Z87.42 - Personal history of other diseases of the female genital tract (ICD-10) Allergic rhinitis ?J30.9 - Allergic rhinitis, unspecified (ICD-10) Chronic daily headache ?R51.9 - Headache, unspecified (ICD-10) Degenerative disc disease, lumbar ?M51.36 - Other intervertebral disc degeneration, lumbar region (ICD-10) Chronic neck pain ?M54.2 - Cervicalgia (ICD-10) ?G89.29 - Other chronic pain (ICD-10) KAI (generalized anxiety disorder) ?F41.1 - Generalized anxiety disorder (ICD-10) Surgical History (Updated 08/04/23 @ 01:02 by Herson Rhodes MD) History of open reduction and internal fixation (ORIF) procedure (04/29/23) ?Z98.890 - Other specified postprocedural states (ICD-10) History of laparoscopy ?Z98.890 - Other specified postprocedural states (ICD-10) History of ovarian cystectomy (1992) ?Z98.890 - Other specified postprocedural states (ICD-10) ?Z87.42 - Personal history of other diseases of the female genital tract (ICD-10) History of open reduction and internal fixation (ORIF) procedure ?Z98.890 - Other specified postprocedural states (ICD-10) Spinal cord stimulator status (2009) ?Z96.89 - Presence of other specified functional implants (ICD-10) History of total abdominal hysterectomy and bilateral salpingo-oophorectomy (2015) ?Z90.710 - Acquired absence of both cervix and uterus (ICD-10) ?Z90.722 - Acquired absence of ovaries, bilateral (ICD-10) ?Z90.79 - Acquired absence of other genital organ(s) (ICD-10) History of esophagogastroduodenoscopy (EGD) ?Z98.890 - Other specified postprocedural states (ICD-10) History of colonoscopy (04/19/12) ?Z98.890 - Other specified postprocedural states (ICD-10) Family History Father Cirrhosis of liver High blood pressure Paternal Grandfather High blood pressure Paternal Grandmother High blood pressure Social History (Updated 07/31/24 @ 09:54 by Angelia Loera ~ RMA, RMA) Narrative: Medical marijuana use. . 3 adopted children. Nonsmoker. 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 What is your current living situation?: I presently have a place to live Problems where you live: no known problems In the past 12 months, utilities in danger of being shut off: no In past 12 months, lack of transportation kept you from medical appts, meetings, work, or getting things needed for daily living: no In the past 12 mos, have been you worried that your food would run out before you had money to buy more?: never true In the past 12 mos, the food you bought just didn't last and you didn't have money to buy more?: never true Smoking Status: Former smoker What tobacco products do you use: cigarettes Smoking quit date/years: <= 15 years ago Do you use any of these nicotine containing products: E-Cigarettes Second hand tobacco smoke exposure: No How often do you have a drink containing alcohol: never How often do you have six or more drinks on one occasion: Never AUDIT-C Alcohol total score: 0 Non-prescribed substance use: denies use Caffeine: Yes (seldom) How often does anyone, including family, friends and others, physically hurt you : never How often does anyone, including family, friends and others, insult or talk down to you: never How often does anyone, including family, friends and others, threaten you with harm: never How often does anyone, including family, friends and others, scream or curse at you: never Are you using contraception or practicing any form of control: No service: No Exam Narrative: Exam Narrative: Constitutional: Appears well-developed and well-nourished. Active. Non-toxic appearing. Polite HENT: Head: Atraumatic. No signs of injury. Nose: No nasal discharge. Mouth/Throat: Mucous membranes are moist. Eyes: Conjunctivae normal and EOM are normal. Pupils are equal, round, and reactive to light. Right eye exhibits no discharge. Left eye exhibits no discharge. No icterus. Neck: Normal range of motion. Neck supple. No adenopathy. No stridor. Cardiovascular: Normal rate and regular rhythm. Brisk distal cap refill. Strong DP and PT artery pulses Pulmonary/Chest: Effort normal. No stridor. No respiratory distress. Musculoskeletal: Right lower extremity-Normal range of motion in her hip, knee, ankle. No tenderness over the knee, delaney, Achilles. Medial and lateral malleoli are nontender. Foot: She does have bruising and swelling over the 1st MTP. No tenderness over the calcaneus and hindfoot. Midfoot is nontender. Fifth metatarsal is nontender. Toes 2 through 5 are nontender. She is tender over the 1st toe and 1st MTP joint and 1st metatarsal. There is bruising and swelling in that location. No lacerations. No foreign bodies. No other injuries, including her left lower extremity, back, upper extremities Neurological: Alert. Normal strength. No cranial nerve deficit or sensory deficit. Intact distal sensory function and does have slight toe wiggling. Flexion/extension of the great toe is limited by pain. Coordination normal. GCS eye subscore is 4. GCS verbal subscore is 5. GCS motor subscore is 6. Skin: Skin is warm. No rash noted. Const: Vital Signs, click to edit/add: Vital Signs - 24 hr 09/02/24 08:31 Temperature 96.5 F L Pulse Rate [Pulse Oximeter] 79 Respiratory Rate 18 Blood Pressure [Le ft Forearm] 125/77 Pulse Oximetry 97 Oxygen Delivery Me thod Room Air Course Vital Signs Vital signs: Initial Vital Signs Temperature 96.5 F L 09/02/24 08:31 Temperature Source Temporal Artery Scan 09/02/24 08:31 Pulse Rate 79 09/02/24 08:31 Pulse Rhythm Regular 09/02/24 08:31 Respiratory Rate 18 09/02/24 08:31 Blood Pressure 125/77 09/02/24 08:31 Blood Pressure Mean 93 09/02/24 08:31 Blood Pressure Position Supine 09/02/24 08:31 Pulse Oximetry 97 09/02/24 08:31 Oxygen Delivery Method Room Air 09/02/24 08:31 Vital Signs Temperature 96.5 F L 09/02/24 08:31 Pulse Rate 79 09/02/24 08:31 Respiratory Rate 18 09/02/24 08:31 Blood Pressure 125/77 09/02/24 08:31 Pulse Oximetry 97 09/02/24 08:31 Oxygen Delivery Method Room Air 09/02/24 08:31 Temperature 96.5 F L 09/02/24 08:31 Pulse Rate 79 09/02/24 08:31 Respiratory Rate 18 09/02/24 08:31 Blood Pressure 125/77 09/02/24 08:31 Pulse Oximetry 97 09/02/24 08:31 Oxygen Delivery Method Room Air 09/02/24 08:31 Medications Administered Medications: Discontinued Medications Generic Name Dose Route Start Last Admin Trade Name Freq PRN Reason Stop Dose Admin Hydrocodone Bitart/Acetaminophen 1 tab 09/02/24 08:39 09/02/24 08:49 Hydrocodone-Acetamin 5-325 Mg 1 Tab PO 09/02/24 08:40 1 tab ONCE ONE Administration Medical Decision Making [facility] Narrative Medical decision making narrative: Pleasant 43-year-old female presenting to the ER today with pain, bruising, swelling affecting the base of her right great toe and the proximal phalanx. She fell on the steps last night. X-rays this morning confirm a nondisplaced fracture through the proximal phalanx of that toe. No evidence for other foot fracture such as a low metatarsal fracture, Lisfranc joint injury. Her previously repaired 5th metatarsal appears to be intact. She is neurovascularly intact in that foot and toe. Pain is present but improved with Tyler. She is able to go home. Will place the patient into cam boot to protect mobility in her forefoot and big toe and also crutches. Discussed she needs to limit weight-bearing on that right foot and avoid pushing off on the PICC taste we do not displace the fracture. She will need close outpatient follow-up with ortho for recheck and repeat x-ray. She will call Wednesday for her follow-up appointment in 3-5 days. Opiate and sedation precautions reviewed. Return precautions reviewed. Imaging Data X-ray right foot: Attestation: I have reviewed the pertinent imaging results. My impression: Nondisplaced fracture through the proximal phalanx of the right great toe Radiologist's impression: IMPRESSION: Comminuted, nondisplaced fracture of the proximal phalanx of the great toe with associated soft tissue swelling. Discharge Plan Discharge Clinical Impression: Fracture of great toe of right foot Patient Disposition: Home, Self-Care Condition: Stable Instructions: Toe Fracture (ED), Walking Boot (ED) Additional Instructions: As we discussed, please use the crutches and a walking boot whenever you are up and around. It is important to protect her big toe and do not put excess pressure on the big toe because this could lead to displacement of the broken bones. To manage the pain you can use Tylenol or you can use the prescription pain killer ; hydrocodone. Use caution with hydrocodone because it can cause dizziness, drowsiness, constipation, and can be addictive. Please follow-up with the [facility] within 3-5 days. To schedule an appointment call [phone] Come back to the ER right away if you have any problems especially displacement of your broken toe, worsening or uncontrolled pain, numbness in your foot, or any other problems Prescriptions: New hydrocodone-acetaminophen 5-325 mg tablet 1 - 2 tab PO Q6H PRN (Reason: pain) Qty: 14 0RF No Action duloxetine 30 mg capsule,delayed release(DR/EC) 30 mg PO DAILY doxazosin 1 mg tablet 1 mg PO QDAY ursodiol 300 mg capsule 300 mg PO BID Rx Instructions: START 2 WEEKS AFTER SURGERY, DO NOT OPEN-TAKE WITH WARM LIQUID. TAKE TWICE A DAY FOR 6 MONTHS [place] Complete (iron) Tablet,Chewable 1 tab PO BID Rx Instructions: administer with a meal mecobalamin (vitamin B12) 1,000 mcg lozenge 1,000 mcg PO QDAY Rx Instructions: allow to dissolve in mouth OR may chew lightly before swallowing START RIGHT AFTER SURGERY estradiol 0.05 mg/24 hr patch semiweekly 1 patch transdermal 2XW lamotrigine 150 mg tablet 150 mg PO DAILY duloxetine [Cymbalta] 60 mg capsule,delayed release(DR/EC) 60 mg PO QDAY Qty: 90 1RF baclofen 20 mg tablet 40 mg PO TID 90 Days Qty: 540 1RF pregabalin 150 mg capsule 150 mg PO BID Qty: 60 2RF omeprazole 40 mg capsule,delayed release(DR/EC) 40 mg PO BID Qty: 180 0RF topiramate 100 mg tablet 100 mg PO BID Qty: 180 0RF metoprolol succinate [Toprol XL] 100 mg tablet extended release 24 hr 100 mg PO QDAY Qty: 90 0RF cetirizine [Zyrtec] 10 mg tablet 10 mg PO QDAY Qty: 90 0RF Follow Up/Referrals: Herson Rhoeds MD [Primary Care Provider] - Stand Alone Forms: [facility] Info Instructions
[2024-09-02] MEDS: HYDROCODONE-ACETAMIN 5-325 MG 1 TAB PO (08:49)
--- OUTSIDE RECORDS SUMMARY | 2024-09-02 08:56 | XMS_ITS | Clinical Summary ---
Author Organization [employer] Address [address] [place] [address]. [place] [address] Care Team Providers Care Credit Director Name Role Phone Herson Rhodes MD Primary Care Provider [phone] [facility] Unavailabl e Hien Flood RD Unavailable [phone] Dung Alva PhD Unavailable Airs Thurman MD Unavailable Miriam Melton APRN COPY CENTER SPECIALIST Unavailable [phone] Allergies Active Allergy Reactions Criticality Noted Date [...] Active fluticasone (FLONASE) 50 MCG/ACT nasal spray [place] 2 sprays into both nostrils daily as [...] taking after surgery until advised by senior ui web developer in post-op class. Active estradiol (CLIMARA) 0.05 [...] taking after surgery until advised by senior ui web developer in post-op class. Active DULoxetine (CYMBALTA) 30 [...] Department Care Team Description 08/30/2024 12:30 PM BIOLOGY TUTOR Virtual Visit [facility] [address] [phone] Aris Thurman MD S/P gastric bypass (Primary Dx) 08/14/2024 1:00 PM BIOLOGY TUTOR Virtual Visit [facility] [address] [phone] Bariatric surgery status (Primary Dx) 08/14/2024 MyC Medical Advice [facility] [address] [phone] 08/10/2024 MyC Medical Advice [facility] [address] [phone] Litzy Hall RN 08/10/2024 Telephone [facility] [address] [phone] Litzy Hall RN Post-op Phone Call 08/07/2024 10:51 AM BIOLOGY TUTOR Anesthesia Event [address] [place] [address] Aubrey Gutierrez MD Anderson, Raleigh F, MD 08/07/2024 10:09 AM BIOLOGY TUTOR - 08/07/2024 12:59 PM BIOLOGY TUTOR Surgery [address] [phone] Aris Thurman MD CREATION, GASTRIC BYPASS, SRIDHAR-EN-Y, LAPAROSCOPIC 08/07/2024 9:20 AM BIOLOGY TUTOR Ancillary Procedure [facility] Ultrasound [address] [place] [phone] Timo Elam MD 08/07/2024 8:47 AM BIOLOGY TUTOR - 08/08/2024 3:24 PM BIOLOGY TUTOR Hospital Encounter [facility] [address] [place] [phone] Aris Thurman MD Morbid (severe) obesity due to excess calories (H) (Primary Dx); S/P gastric bypass Discharge Disposition: Home or Self Care 08/07/2024 MyC Medical Advice [facility] and [facility] Care [address] [phone] Hien Flood, ZEINAB 07/19/2024 12:30 PM BIOLOGY TUTOR Allied Health/Nurse Visit [facility] [address] [phone] Bariatric (Pre-op Class/); Pt Ed 07/19/2024 Travel 07/18/2024 Travel 07/18/2024 MyC Medical Advice [facility] [address] [phone] Esau [facility] 07/17/2024 MyC Medical Advice [facility] [address] [place] [phone] Litzy Hall RN 07/17/2024 MyC Medical Advice [facility] [address] [place] [phone] Radha Brown 07/17/2024 Documentation Only [facility] [address] [place] [phone] [facility] Documentation Only [facility] [address] [place] [phone] [facility] 07/05/2024 1:30 PM BIOLOGY TUTOR Office Visit [facility] [address] [phone] Aris Thurman MD Morbid obesity with BMI of 45.0-49.9, adult (H) (Primary Dx); BLAISE (obstructive sleep apnea); Morbid obesity (H); Duodenal stricture 07/05/2024 Travel 07/04/2024 Travel 06/29/2024 11:00 AM BIOLOGY TUTOR Lab [facility] [address] [place] [phone] History of tobacco use 06/29/2024 Travel 06/28/2024 9:30 AM BIOLOGY TUTOR Virtual Visit [facility] [address] [phone] Dung Alva, PhD Morbid obesity (H) (Primary Dx) 06/28/2024 MyC Medical Advice [facility] [address] [phone] Litzy Hall RN prep for surgery 06/27/2024 MyC Medical Advice [facility] [address] [phone] Litzy Hall RN Morbid obesity with BMI of 45.0-49.9, adult (H) (Primary Dx); Pre-diabetes 06/26/2024 2:30 PM BIOLOGY TUTOR Virtual Visit [facility] [address] [place] [phone] Hien Flood, ZEINAB Morbid obesity with BMI of 45.0-49.9, adult (H) (Primary Dx); Pre-bariatric surgery nutrition evaluation 06/14/2024 MyC Medical Advice Initial Department [facility] 06/14/2024 MyC Medical Advice Initial Department [facility] 06/12/2024 9:00 AM CDT Virtual Visit [facility] [address] [place] [phone] Dung Alva, PhD Morbid obesity (H) (Primary Dx) 06/09/2024 10:00 AM CDT Virtual Visit [facility] [address] [place] [phone] Morbid obesity with BMI of 45.0-49.9, adult (H) (Primary Dx); Pre-bariatric surgery nutrition evaluation 06/05/2024 11:00 AM CDT Virtual Visit [facility] [address] [phone] 1, Sh Wl Diet, RD Obesity (Primary Dx) 06/02/2024 Travel 06/02/2024 Telephone [facility] [address] [place] [phone] Radha Brown from Last 3 Months [...] PM CDT Legal Sex Female 5:06 AM BIOLOGY TUTOR Gender Identity Female 04/04/2021 10:28 PM CDT Sexual Orientation Straight 04/04/2021 10 :28 PM CDT Last Filed Vital Signs Vital Sign Reading Time Taken Comments Blood Pressure 105/56 08/08/2024 7:44 AM BIOLOGY TUTOR Pulse 58 08/08/2024 7:44 AM BIOLOGY TUTOR Temperature 36.4 C (97.5 F) 08/08/2024 7:44 AM BIOLOGY TUTOR Respiratory Rate 19 08/08/2024 7:44 AM BIOLOGY TUTOR Oxygen Saturation 96% 08/08/2024 7:44 AM BIOLOGY TUTOR Inhaled Oxygen Concentration - - Weight 123.4 kg (272 lb) 08/30/2024 12:25 PM BIOLOGY TUTOR Height 165.1 cm (5' 5) 08/30/2024 12:25 PM BIOLOGY TUTOR Body Mass Index 45.26 08/30/2024 12:25 PM BIOLOGY TUTOR Plan of Treatment Upcoming Encounters Date Type Department Care Team (Late st Contact Info) Description 09/08/2024 11:00 AM BIOLOGY TUTOR Virtual Visit [facility] Surgery Clinic and [facility] Care [address] [place] [phone] Betty Leonardo, RD [address] [facility] [address] [place] [address] 11/06/2024 9:30 AM CDT Virtual Visit [facility] and [facility] Care [address] [place] [phone] Dung Alva, PhD [facility] [employer] [facility] [address] [facility] [address] [place] [address] 11/07/2024 9:30 AM CDT Virtual Visit [facility] [address] [place] [phone] Hien Flood, RD [address] [facility] 200 [place] [address] 02/08/2025 1:30 PM CDT Office Visit [facility] [address] [place] [phone] Miriam Melton, PAPERHANGER ASSISTANT COPY CENTER SPECIALIST [address] [place] [address] [address] [place] [address] 05/09/2025 9:30 AM CDT Virtual Visit [facility] Clinic and [facility] [place] [address] [facility] 200 [place] [phone] Hien Flood, RD [address] [facility] [address] [place] [address] 08/09/2025 1:30 PM BIOLOGY TUTOR Office Visit [facility] [place] [address] [facility] 200 [place] [phone] Miriam Melton, PAPERHANGER ASSISTANT COPY CENTER SPECIALIST [address] [facility] 200 [place] [address] Health Maintenance Due Date Last Done Comments [...] this topic Medical Devices Implanted Type Area Bankruptcy Paralegal Device Identifier Shelf Expiration Date Model / Serial / Lot Primeadvanced Surescan Mri Neurostimulator Implanted:Qty: 1 on 02/14/2014 by Aj Perkins MD at [facility] Left: Buttocks [employer] 03/19/2015 [id number] / [id number] / Explanted Type Area Bankruptcy Paralegal Device Identifier Shelf Expiration Date Model / Serial / Lot Prime Advanced Neurostimulator Implanted:Qty: 1 on 03/16/2011 at [facility] Explanted:Qty: 1 on 02/14/2014 by Aj Perkins MD at [facility] Left: Buttocks [employer] 03/05/2012 [id number] / [id number] / Description:[facility] advanced ulti program Neurostimulator [employer] Procedures Procedure Name Priority Date/Time Associated Diagnosis Comments EXTRA PURPLE TOP EDTA (LAB USE ONLY) Routine 08/08/2024 6:23 AM BIOLOGY TUTOR CREATININE Routine 08/08/2024 6:23 AM BIOLOGY TUTOR CREATININE Routine 08/07/2024 4:10 PM BIOLOGY TUTOR PLATELET COUNT Routine 08/07/2024 4:10 PM BIOLOGY TUTOR ANE AIRWAY ETT PERFORMABLE Routine 08/07/2024 10:54 AM BIOLOGY TUTOR CREATION, GASTRIC BYPASS, SRIDHAR-EN-Y, LAPAROSCOPIC 08/07/2024 10:48 AM BIOLOGY TUTOR Morbid obesity (H) Duodenal stricture Special Needs BMI 49.09Staff assist ANE SPINAL BLOCK FORM Routine 08/07/2024 10:24 AM BIOLOGY TUTOR POC US GUIDANCE NEEDLE PLACEMENT Routine 08/07/2024 9:18 AM BIOLOGY TUTOR GLUCOSE BY METER Routine 08/07/2024 9:02 AM BIOLOGY TUTOR LAB RESULT - HIM SCAN 07/31/2024 12:00 AM BIOLOGY TUTOR EKG CARDIAC - HIM SCAN 07/31/2024 12:00 AM BIOLOGY TUTOR XRAY IMAGING - HIM SCAN 07/31/2024 12:00 AM BIOLOGY TUTOR NICOTINE AND METS, URN, QUANT Routine 06/29/2024 10:50 AM BIOLOGY TUTOR History of tobacco use LIPID PROFILE Routine [...] EDTA (LAB USE ONLY) (08/08/2024 6:23 AM BIOLOGY TUTOR) Hold Specimen JIC 08/08/2024 7:46 AM BIOLOGY TUTOR [facility] Blood STRUCTURE OF RIGHT UPPER LIMB / Unknown Venipuncture / Unknown 08/08/2024 6:23 AM BIOLOGY TUTOR 08/08/2024 6:45 AM BIOLOGY TUTOR Aris Thurman MD LAB - BLOOD ORDERABLES Final Result [facility] [address] [place] [address], [facility] * Creatinine (08/08/2024 6:23 AM BIOLOGY TUTOR) Only the most recent of2 resultswithin the time period is included. Creatinine 0.92 0.51 - 0.95 mg/dL 08/08/2024 7:04 AM BIOLOGY TUTOR [facility] GFR Estimate 79 >60 mL/min/1.7 3m2 08/08/2024 7:04 AM BIOLOGY TUTOR [facility] Comment:eGFR calculated usin 2020 CKD-EPI equation. Blood STRUCTURE OF RIGHT UPPER LIMB / Unknown Venipuncture / Unknown 08/08/2024 6:23 AM BIOLOGY TUTOR 08/08/2024 6:45 AM BIOLOGY TUTOR Miriam Melton APRN COPY CENTER SPECIALIST LAB - BLOOD ORDERABL ES Final Result Performing Organization Address City/[facility]/ZIP Co de Phone Number [facility] [address] [place] [address], [facility] * Platelet count (08/07/2024 4:10 PM BIOLOGY TUTOR) Platelet Count 314 150 - 450 10e3/uL 08/07/2024 4:31 PM BIOLOGY TUTOR [facility] Blood STRUCTURE OF RIGHT UPPER LIMB / Unknown Venipuncture / Unknown 08/07/2024 4:10 PM BIOLOGY TUTOR 08/07/2024 4:24 PM BIOLOGY TUTOR Aris Thurman MD LAB - BLOOD ORDERABLES Final Result N [facility] [address] [place] [id number], [facility] * ANE AIRWAY ETT PERFORMABLE (08/07/2024 10:54 AM BIOLOGY TUTOR) Lazarus Butler APRN CRNA - 08/07/2024 10:54 AM BIOLOGY TUTOR Lazarus Mendez APRN CRNA 08/07/2024 11:10 AM Airway Patient location during procedure: OR Procedure Start/Stop Times: 08/07/2024 10:54 AM Staff - LABORATORY ANIMAL FACILITY SUPERVISOR: Lazarus Mendez APRN CRNA Performed By: LABORATORY ANIMAL FACILITY SUPERVISOR Consent for Airway Urgency: elective Indications and [...] 08/07/2024 10:54 AM us Aubrey Gutierrez MD SC ANESTHESIA Final Resul t * Spinal Block (08/07/2024 10:24 AM BIOLOGY TUTOR) Narrative Aubrey Gutierrez MD - 08/07/2024 10:24 AM BIOLOGY TUTOR Aubrey Gutierrez MD 08/07/2024 10:25 AM Intrathecal [...] Medication Administration Time: 08/07/2024 10:24 AM FOR [facility] ([facility]) ONLY: Pain Team Contact information: please page the Pain Team Via [employer]. Search Pain. During daytime hours, please page the attending first. At night please page the resident first. us Aubrey Gutierrez MD [place] ANESTHESIA Final Resul t * POC US Guidance Needle Placement (08/07/2024 9:18 AM BIOLOGY TUTOR) Narrative [facility] - 08/07/2024 9:18 AM BIOLOGY TUTOR Ultrasound was performed as guidance to an anesthesia procedure. Click PACS images hyperlink below to view any stored images. For specific procedure details, view procedure note authored by anesthesia. us Timo Elam MD IMG POCUS Final Resu lt [facility] * (ABNORMAL) Glucose by meter (08/07/2024 9:02 AM BIOLOGY TUTOR) [facility] Signature GLUCOSE BY METER POCT 112(H) 70 - 99 mg/dL 08/07/2024 9:09 AM BIOLOGY TUTOR [facility] POCT RESULTS Blood, Capillary BLOOD SPECIMEN / Unknown 08/07/2024 9:02 AM BIOLOGY TUTOR 08/07/2024 9:09 AM BIOLOGY TUTOR us Aris JENNINGS - VALENTIN POCT Final Result Performing Organization Address [facility]/ZIP Co de Phone Number [facility] POCT RESULTS [address] [place] [address] * Lab Result - HIM Scan (07/31/2024 12:00 AM BIOLOGY TUTOR) 07/31/2024 us Provider Outside MH NON-BEAKER LAB TESTING Final Result * Xray Imaging - HIM Scan (07/31/2024 12:00 AM BIOLOGY TUTOR) Anatomical Region Laterality Modality Other 07/31/2024 us Provider Outside IMG DIAGNOSTIC IMAGING ORDERABL ES Final Result * EKG Cardiac - HIM Scan (07/31/2024 12:00 AM BIOLOGY TUTOR) 07/31/2024 us Provider Outside ECG ORDERABLES Final Result * Nicotine and Mets, Urn, Quant (06/29/2024 10:50 AM BIOLOGY TUTOR) Cotinine Confirm <15 ng/mL 07/02/20 9:09 PM BIOLOGY TUTOR [facility] Nicotine Confirmation Urine <15 ng/mL 07/02/2024 9:09 PM BIOLOGY TUTOR [facility] Comment: INTERPRETIVE INFORMATION: Nicotine and Metabolites, Urine, Quantitative Methodology: Quantitative Liquid Chromatography-Tandem Mass Spectrometry Positive cutoff: Nicotine 15 ng/mL Cotinine 15 ng/mL 7-HD-Lindjyup 50 ng/mL Anabasine 5 ng/mL For medical [...] developed and its performance characteristics determined by [facility]. It has not been cleared or approved by the US Food and Drug Administration. This test was performed in a CLIA certified laboratory and is intended for clinical purposes. Performed By: [facility] [address] [place] [address] Internet Marketing Analyst: Ceasar Romero MD, PhD CLIA Number: [id number] 7-LV-Yawmvlib, Urn, Quant <50 ng/mL 07/02/2024 9:09 PM BIOLOGY TUTOR [facility] Anabasine, Urn, Quant <5 ng/mL 07/02/2024 9:09 PM BIOLOGY TUTOR [facility] Urine URINE SPECIMEN OBTAINED BY CLEAN CATCH PROCEDURE / Unknown Non-blood Collection / Unknown 06/29/2024 10:50 AM BIOLOGY TUTOR 06/29/2024 10:51 AM BIOLOGY TUTOR Miriam Melton APRN COPY CENTER SPECIALIST LAB - URINE ORDERABL ES Final Result [facility] [address] [place] [address], [facility] [phone] * (ABNORMAL) Lipid Profile (05/18/2024 11:25 AM [...] High: >= 220 mg/dL Miriam Melton APRN COPY CENTER SPECIALIST LAB - BLOOD ORDERABL ES Final Result [facility] [address] [facility], [address] [place] [address] * Mammogram - HIM Scan (05/02/2024 12:00 AM CDT) Anatomical Region Laterality Modality Other 05/02/2024 us Provider Outside IMG MAMMOGRAPHY ORDERABLES Elise l Result * Pap thin layer screen with HPV - recommended age 30 - 65 years (05/07/2021 11:50 AM CDT) Interpretation Negative for Intraepithelial Lesion or Malignancy (NILM) 05/09/2021 2:32 PM CDT [facility] Specimen Adequacy Satisfactory for evaluation, endocervical/pual sformation zone component absent 05/09/2021 2:32 PM CDT [facility] Clinical Information complete hysterectomy 05/09/2021 2:32 PM CDT [facility] Reflex Testing Yes regardless of result 05/09/2021 2:32 PM CDT [facility] Previous Abnormal? No 05/09/2021 2:32 PM CDT [facility] Performing Labs The technical component of this testing was completed at [facility] 05/09/2021 2:32 PM CDT [facility] Brushing VAGINAL STRUCTURE / Unknown 05/07/2021 11:50 AM CDT 05/07/2021 12:21 PM CDT Alan Shah MD LAB - BEAKER AP Final Result [facility] [address] [place] [address], [facility] [phone] * HPV High Risk Types DNA Cervical (05/07/2021 11:50 AM CDT) Other HR HPV Negative Negative 05/13/2021 2:50 PM CDT [facility] [facility] HPV16 DNA Negative Negative 05/13/2021 2:50 PM CDT [facility] [facility] HPV18 DNA Negative Negative 05/13/2021 2:50 PM CDT [facility] [employer] [facility] FINAL DIAGNOSIS This patient's sample is negative for HPV DNA. This test was developed and its performance characteristics determined by the [facility], Molecular Diagnostics Laboratory. It has not [...] followup is recommended. 05/13/2021 2:50 PM CDT [facility] [employer] [facility] Brushing VAGINAL STRUCTURE / Unknown Non-blood Collection / Unknown 05/07/2021 11:50 AM CDT 05/12/2021 8:50 AM CDT Alan Shah MD LAB - BLOOD ORDERABLES Final Result [facility] [address] [facility], [address] [place] [address], [facility] [phone] * HIV 1 and 2 rapid screen [...] to [place] [address] [facility] CHOICE Advance Directives For more information, please contact: [phone] * Full Code (Latest Code Status on File) Date Activated Date Inactivated Comments 08/07/2024 3:24 PM 08/08/2024 5:30 PM All basic and advanced life-sustaining interventions are performed as appropriate Question Answer Comments Code status determined by: Discussion with patie nt/ legal decision maker * Full Code Date Activated Date Inactivated Comments 12/19/2015 3:02 PM 12/20/2015 1:10 PM Care Teams Credit Director Relationship Specialty Start Date End Date Herson Rhodes MD PCP - General 06/02/11 [facility] [id number] [place] [id number] Assigned PCP 12/14/[address] [place] [address] Registered Dietitian Dietitian, Registered 06/09/24 Dung Alva, PhD [employer] [employer] [facility] [address] [address] Assigned Behavioral Health Provider 06/14/24 Aris Thurman MD [address] [place] [id number] Assigned Surgical Provider 07/15/24 Miriam Melton APRN COPY CENTER SPECIALIST [address] [place] [address] Nurse Practitioner Surgery 07/19/24
--- OUTSIDE RECORDS SUMMARY | 2024-09-02 08:56 | XMS_ITS | Clinical Summary ---
Author Organization [employer] Address [place], [place] [address] Care Team Providers Care Fruit Or Nut Grower Name Role Phone Herson Rhodes MD Primary [...] on file Legal Sex Female 5:41 AM SENIOR ANALYST MARKET INTELLIGENCE Gender Identity Not on file Sexual Orientation [...] Rhodes MD Medical Devices Implanted Type Area Yardmaster Device Identifier Shelf Expiration Date Model / Serial / Lot Stimulator Spinal Primeadvanedsurescan Mri - [id number] Implanted:Qty: 1 on 12/02/2017 by Herson Lala MD at [facility] Left: Flank [employer] Pain Therapy 12/18/2018 [id number]# / [id number] / Stimulator Spinal Intellis Mri - [id number] Implanted:Qty: 1 on 06/19/2020 by Herson Lala MD at [facility] Left: Flank [employer] Pain Therapy 04/19/2021 [id number]# / / [id number] 1H Envkey Neuro Tyrx Absorb Antibacterial - [id number] Implanted:Qty: 1 on 06/19/2020 by Herson Lala MD at [facility] Left: Flank [employer] 01/10/2021 [id number] # / / [id number] Explanted Type Area Yardmaster Device Identifier Shelf Expiration Date Model / Serial / Lot [id number] - [id number] Explanted:Qty: 1 on 12/02/2017 at [facility] Left: Flank [employer]onic [id number] / [id number] / Description:Spinal cord gene rator battery Procedures Procedure Name Priority Date/Time Associated Diagnosis Comments ANTI HCV Timed 08/21/2004 9:55 AM SENIOR ANALYST MARKET INTELLIGENCE from Last 3 Months or Most Recently Relevant to Health Maintenance Results * ANTI HCV (08/21/2004 9:55 AM SENIOR ANALYST MARKET INTELLIGENCE) ANTI HCV Non-reactiv e [facility] 08/21/2004 9:55 AM SENIOR ANALYST MARKET INTELLIGENCE 08/21/2004 7:46 PM SENIOR ANALYST MARKET INTELLIGENCE Narrative [facility] - 08/26/2004 1:39 PM SENIOR ANALYST MARKET INTELLIGENCE Testing Performed By [place], [place] Radha Huff CHAIR CAR ATTENDANT SEND OUTS Final Result [facility] [address] [place] [address] from Last 3 Months or Most Recently [...] 7:00 AM 07/21/2009 2:26 AM Care Teams Fruit Or Nut Grower Relationship Specialty Start Date End Date Herson Rhodes MD [address] [place] [address] PCP - General Family Practice 06/10/20
--- OUTSIDE RECORDS SUMMARY | 2024-09-02 08:57 | XMS_ITS | Encounter Summary ---
Author Organization [facility] Address [address] [place] [address]. [place] [address] Care Team Providers Care Coffee Sommelier Name Role Phone Herson Rhodes MD Primary Care Provider [facility] Unavailabl e Hien Flood RD Unavailable [phone] Dung Alva PhD Unavailable [phone] Aris Thuramn MD Unavailable [phone] Miriam Melton APRN CERTIFIED HAND THERAPIST Unavailable [phone] Encounter Details Date Type Department Care Team (Late st Contact Info) Description 08/10/2024 MyC Medical Advice [facility] [address] [phone] Litzy Hall RN Social History Tobacco Use [...] PM CDT Legal Sex Female 5:06 AM BOX REPAIRER Gender Identity Female 04/04/2021 10:28 PM CDT Sexual Orientation Straight 04/04/2021 10 :28 PM CDT documented as of this encounter Plan of Treatment Upcoming Encounters Date Type Department Care Team (Late st Contact Info) Description 09/08/2024 11:00 AM BOX REPAIRER [facility] [address] 200 [place] [phone] Betty Leonardo, RD 2945 [facility] 200 [place] [address] 11/06/2024 9:30 AM CDT Virtual Visit [facility] [address] 200 [place] [address] Dung Alva, PhD [facility] [employer] [address] [facility] 200 [place] [address] 11/07/2024 9:30 AM CDT Virtual Visit [facility] [address] 200 [place] [address] Hien Flood, RD 2945 [facility] 200 [place] [address] 02/08/2025 1:30 PM CDT Office Visit [facility] [address] 200 [place] [address] Miriam Melton, TRAFFIC SUPERINTENDENT CERTIFIED HAND THERAPIST [address] [place] [address] 200 [place] [address] 05/09/2025 9:30 AM CDT Virtual Visit [facility] [address] 200 [place] [address] [address] 08/09/2025 1:30 PM BOX REPAIRER Office Visit [facility] [place] [address] [place] [phone] Miriam Melton APRN CERTIFIED HAND THERAPIST [address] [place] [address] documented as of this encounter Visit Diagnoses Not on filedocumented in this encounter Additional Health Concerns Assessment Noted Time PHQ-9 Depression Total Score: 2 05/07/20 21 11:37 AM CDT documented as of this encounter Care Teams Coffee Sommelier Relationship Specialty Start Date End Date Herson Rhodes MD PCP - General 06/02/11 Clinic - [facility] [address] [place] [address] Assigned PCP 12/14/[address] [place] [address] Registered Dietitian Dietitian, Registered 06/09/24 Dung Alva, PhD [facility] [employer] [address] [facility] 200 [place] [address] Assigned Behavioral Health Provider 06/14/24 Aris Thurman MD [address] [place] [address] Assigned Surgical Provider 07/15/24 Miriam Melton APRN CERTIFIED HAND THERAPIST [address] [phone] Nurse Practitioner Surgery 07/19/24 documented as of this encounter
--- OUTSIDE RECORDS SUMMARY | 2024-09-02 08:57 | XMS_ITS | Encounter Summary ---
Author Organization [facility] Address [address] [place] [address]. [place] [address] Care Team Providers Care Private Branch Exchange Repairer Name Role Phone Herson Rhodes MD Primary Care Provider [facility] Unavailabl e Hien Flood RD Unavailable [phone] Dung Alva PhD Unavailable Aris Thurman MD Unavailable Miriam Melton APRN BACKUP OPERATOR Unavailable [phone] Encounter Details Date Type Department Care Team [...] PM CDT Legal Sex Female 5:06 AM BUSINESS CONTINUITY SPECIALIST Gender Identity Female 04/04/2021 10:28 PM CDT Sexual Orientation Straight 04/04/2021 10 :28 PM CDT documented as of this encounter Plan of Treatment Upcoming Encounters Date Type Department Care Team (Late st Contact Info) Description 09/08/2024 11:00 AM BUSINESS CONTINUITY SPECIALIST [facility] [address] 200 [place] [address] Betty Leonardo, RD 2945 [facility] 200 [place] [address] 11/06/2024 9:30 AM CDT Virtual Visit [facility] Care [address] 200 [place] [address] Dung Alva, PhD [facility] [employer] [address] [place] 200 [place] [address] 11/07/2024 9:30 AM CDT Virtual Visit [facility] Surgery [facility] [address] 200 [place] [address] 2945 [facility] 200 [place] [address] 02/08/2025 1:30 PM CDT Office Visit [facility] [address] 200 [place] [address] Miriam Melton, HISTORICAL INTERPRETER BACKUP OPERATOR 2945 [facility] 200 [place] [address] 05/09/2025 9:30 AM CDT Virtual Visit [facility] [address] 200 [place] [address] 2945 [facility] 200 [place] [address] 08/09/2025 1:30 PM BUSINESS CONTINUITY SPECIALIST Office Visit [facility]rics Care [place] [address] [phone] Miriam Melton APRN BACKUP OPERATOR [address] [place] [address] documented as of this encounter Visit Diagnoses Not on filedocumented in this encounter Additional Health Concerns Assessment Noted Time PHQ-9 Depression Total Score: 2 05/07/20 21 11:37 AM CDT documented as of this encounter Care Teams Private Branch Exchange Repairer Relationship Specialty Start Date End Date Herson Rhodes MD PCP - General 06/02/11 Clinic - [facility] [address] [place] [address] Assigned PCP 12/14/[address] [place] [address] Registered Dietitian Dietitian, Registered 06/09/24 Dung Alva, PhD [facility] [employer] [address] [address] Assigned Behavioral Health Provider 06/14/24 Aris Thurman MD [address] [place] [address] Assigned Surgical Provider 07/15/24 Miriam Melton APRN BACKUP OPERATOR [address] [place] [address] Nurse Practitioner Surgery 07/19/24 documented as of this encounter
--- OUTSIDE RECORDS SUMMARY | 2024-09-02 08:57 | XMS_ITS | Encounter Summary ---
Author Organization [place] Address [address] [place] [address]. [place] [address] Care Team Providers Care Svp Operations Name Role Phone Herson Rhodes MD Primary Care Provider [facility] Unavailabl e Hien Flood [address] Unavailable [phone] Dung Alva PhD Unavailable [phone] Aris Thurman MD Unavailable Miriam Melton APRN CRUCIBLE PACKER Unavailable [phone] Reason for Visit * Reason Onset Date Comments Post-op Phone Call 08/10/2024 Encounter Details Date Type Department Care Team (Late st Contact Info) Description 08/10/2024 Telephone [facility] [address] 200 [place] [phone] Litzy Hall RN Post-op Phone Call Social [...] PM CDT Legal Sex Female 5:06 AM BLURB WRITER Gender Identity Female 04/04/2021 10:28 PM CDT Sexual Orientation Straight 04/04/2021 10 :28 PM CDT documented as of this encounter Miscellaneous Notes * Telephone Encounter - Ltizy Hall RN - 08/10/2024 4:24 PM CST Post-Op Phone Call [facility] Bariat[facility] Care Surgeon: Aris Thurman M.D. [...] Call completed by: Litzy S Feig, RN B WRITER documented in this encounter Plan of Treatment Upcoming Encounters Date Type Department Care Team (Late st Contact Info) Description 09/08/2024 11:00 AM BLURB WRITER Virtual Visit [facility]ariatrics Care [address] 200 [place] [phone] Betty Leonardo, RD 2945 [facility] 200 [place] [address] 11/06/2024 9:30 AM CDT Virtual Visit [facility] [address] [phone] Dung Alva, PhD [facility] [employer] [facility] [address] 200 [place] [address] 11/07/2024 9:30 AM CDT Virtual Visit [facility] Care [address] [phone] Hien Flood, RD 2945 [facility] 200 [place] [address] 02/08/2025 1:30 PM CDT Office Visit [facility] [address] 200 [place] [address] Miriam Melton APRN [address] [address] 05/09/2025 9:30 AM CDT Virtual Visit [facility] [address] 200 [place] [phone] [address] 08/09/2025 1:30 PM BLURB WRITER Office Visit [facility] Care [place] [address] [phone] Miriam Melton, DEE CRUCIBLE PACKER [address] [address] documented as of this encounter Visit Diagnoses Not on filedocumented in this encounter Additional Health Concerns Assessment Noted Time PHQ-9 Depression Total Score: 2 05/07/20 21 11:37 AM CDT documented as of this encounter Care Teams Svp Operations Relationship Specialty Start Date End Date Herson Rhodes MD PCP - General 06/02/11 Clinic - [facility] [address] [place] [address] Assigned PCP 12/14/[address] [place] [address] Registered Dietitian Dietitian, Registered 06/09/24 Dung Alva, PhD [employer] [address] [facility] 200 [place] [address] Assigned Behavioral Health Provider 06/14/24 Aris Thurman MD [address] [place] [address] Assigned Surgical Provider 07/15/24 Miriam Melton APRN CRUCIBLE PACKER 2945 [facility] 200 [place], [place] [phone] Nurse Practitioner Surgery 07/19/24 documented as of this encounter
--- OUTSIDE RECORDS SUMMARY | 2024-09-02 08:57 | XMS_ITS | Encounter Summary ---
Author Organization [facility] Address [address] [place] [address] Care Team Providers Care Net Architect Name Role Phone Herson Rhodes MD Primary Care Provider [facility] Unavailabl e Hien Flood RD Unavailable [phone] Dung Alva PhD Unavailable Aris Thurman MD Unavailable Miriam Melton APRN DIRECTOR OF FINANCIAL PLANNING Unavailable Reason for Visit * Auth/Cert Specialty Diagnoses / Procedures Referred By Abdirizak trimble Referred To Contact Surgery Diagnoses Morbid obesity (H) Duodenal stricture Morbid obesity (H) [E66.01] Duodenal stricture [K31.5] Procedures SC REMOVAL STOMACH,SRIDHAR-EN-Y SC REMV STOMACH,PART,DISTAL,SRIDHAR-EN-Y SC LAPAROSCOPIC GASTRIC RESTRICTIVE PX, W/GASTRIC BYPASS/ SRIDHAR-EN-Y, < 150CM ZZC GASTRIC BYPASS,OBESE<100CM SRIDHAR-EN-Y CREATION, GASTRIC BYPASS, SRIDHAR-EN-Y, LAPAROSCOPIC [address] [address] Phone: tel: Referral ID Status Reason Start Date Expiration Date Visits Re quested Visits Authorized [id number] 1 1 Encounter Details Date Type Department Care Team ([facility] st Contact Info) Description 08/07/2024 8:47 AM CORE MACHINE OPERATOR - 08/08/2024 3:24 PM CORE MACHINE OPERATOR Hospital Encounter [facility] P2 [address] [place] [phone] Aris Thurman MD [address] [address] Morbid (severe) obesity due to excess calories [...] PM CDT Legal Sex Female 5:06 AM CORE MACHINE OPERATOR Gender Identity Female 04/04/2021 10:28 PM CDT Sexual Orientation Straight 04/04/2021 10 :28 PM CDT documented as of this encounter Last Filed Vital Signs Vital Sign Reading Time Taken Comments Blood Pressure 105/56 08/08/2024 7:44 AM CORE MACHINE OPERATOR Pulse 58 08/08/2024 7:44 AM CORE MACHINE OPERATOR Temperature 36.4 C (97.5 F) 08/08/2024 7:44 AM CORE MACHINE OPERATOR Respiratory Rate 19 08/08/2024 7:44 AM CORE MACHINE OPERATOR Oxygen Saturation 96% 08/08/2024 7:44 AM CORE MACHINE OPERATOR Inhaled Oxygen Concentration - - Weight 130.5 kg (287 lb 9.6 oz) 08/07/2024 8:55 AM CORE MACHINE OPERATOR Height - - Body Mass Index 47.86 07/19/2024 2:41 PM CORE MACHINE OPERATOR documented in this encounter Discharge Summaries * [...] surgery or until you meet with the furniture detailer, you will be on a full liquid [...] of 2 weeks. Miriam Melton APRN CNP [phone] [facility] General and Bariatric Surgery MACHINE OPERATOR documented in this encounter Discharge Instructions * Discharge Instructions* Miriam Melton APRN CNP - 08/08/2024 10:16 AM CORE MACHINE OPERATOR If you are worried about whether or not you need to be seen or if something is wrong, please call your bariatric nurse line at [phone] or the bariatric clinic at [phone]. If you need to be seen in the emergency department for any reason in the next 30 days, please return to [facility]. The bariatric team should be involved in your care/diet even if the problem is unrelated to your surgery. MACHINE OPERATOR documented in this encounter Medications at Time [...] start taking after surgery until advised by furniture detailer in post-op class. 08/08/2024 cetirizine (ZYRTEC) 10 [...] 08/10/2024 fluticasone (FLONASE) 50 MCG/ACT nasal spray Titus 2 sprays into both nostrils daily as [...] start taking after surgery until advised by furniture detailer in post-op class. 08/08/2024 Acetaminophen (TYLENOL DISSOLVE [...] encounter Progress Notes * Miriam Melton APRN DIRECTOR OF FINANCIAL PLANNING - 08/08/2024 1:50 PM CST Bariatric Surgery [...] GFR Estimate 08/08/2024 79 Hold Specimen 08/08/2024 [facility] Assessment/Plan: Patient is progressing well after surgery. [...] any reason, she needs to return to [facility]. Pt is scheduled to follow up at Bariatric Clinic next week. Patient verbalized understanding of theplan. Bariatric nurse clinician will call her in a couple days when she gets home to check in with her. Greater than 45 minutes were spent with this patient with more than 50% of that time spent on education. Miriam Melton CNP [phone] [facility] General and Bariatric Surgery MACHINE OPERATOR * Aris Thurman MD - 08/08/2024 9:13 [...] ready for discharge today. Aris Thurman MD [facility] Surgeons [phone] MACHINE OPERATOR * Zahra Seals RN - 08/08/2024 6:41 [...] On Zahra Seals RN 08/08/2024 6:41 AM MACHINE OPERATOR * Zahra Seals RN - 08/08/2024 12:22 [...] On Zahra Seals RN 08/08/2024 12:23 AM MACHINE OPERATOR documented in this encounter H&P Notes * [...] GASTRIC BIOPSIES; Surgeon: Kashif Su MD; Location: [facility] OR COLLAR PACKER SURGERY exc endometrial cysts HYSTERECTOMY, PAP STILL [...] LYSIS ADHESIONS; Surgeon: Alan Shah MD; Location: [facility] LASER CO2 LAPAROSCOPY DIAGNOSTIC, LYSIS ADHESIONS, COMBINED N/A 04/11/2019 Procedure: LAPAROSCOPY, USING CO2 LASER (TRANSZMP TECH); Surgeon: Alan Shah MD; Location: OR [...] cutoff: Nicotine 15 ng/mL Cotinine 15 ng/mL [id number] 50 ng/mL Anabasine 5 ng/mL Component Ref [...] for future dilations if needed. Aris Thurman [facility]; surgeons [phone] MACHINE OPERATOR documented in this encounter Miscellaneous Notes * [...] Place Danilo Rodriguez RN 08/08/2024 3:27 PM MACHINE OPERATOR * Plan of Care - Danilo Rodriguez [...] Reviewed With: patient Overall Patient Progress: improving MACHINE OPERATOR * Op Note - Aris Thurman MD [...] which was then attached to the iron regulatory intern to stabilize and retract the left [...] aspect of the gastric pouch. A 32 Jamaican VISI-G tube wasadvanced on into the gastric [...] a running 2-0 Polysorb suture.. The 32 Jamaican VISI- G tubewas then advanced down through [...] Thurman MD Date: 08/07/2024 Time: 12:49 PM MACHINE OPERATOR * Pharmacy-Admission Medication History - French Bentley RPH - 08/07/2024 9:48 AM CST Pharmacist Admission Medication History Admission medication history is complete. The information provided in this note is only as accurateas the sources available at the time of the update. Information Source(s): Patient, Clinic records, and [facility] via in-person Pertinent Information: none Allergies reviewed with patient and updates made in EHR: yes Medication History Completed By: French Bentley RPH 08/07/2024 9:48 AM HASSOCK MAKER Med List Medication Sig Last Dose/Taking acetaminophen [...] 06/23/2024 fluticasone (FLONASE) 50 MCG/ACT nasal spray Titus 2 sprays into both nostrils daily as [...] Take 2 tablets by mouth daily. 08/06/2024 MACHINE OPERATOR documented in this encounter Plan of Treatment Upcoming Encounters Date Type Department Care Team (Late st Contact Info) Description 09/08/2024 11:00 AM CORE MACHINE OPERATOR Virtual Visit [facility] Surgery Clinic and Bariatrics Care [address] [place] [phone] Betty Leonardo, RD [address] [facility] [address] [place] [address] 11/06/2024 9:30 AM CDT Virtual Visit [facility] Surgery [facility] and Bariatrics [address] [phone] Dung Alva, PhD [employer] [address] [address] 11/07/2024 9:30 AM CDT Virtual Visit [facility] Surgery [facility] and Bariatrics Care [address] [phone] Hien Flood, RD [address] [facility] [address] [place] [address] 02/08/2025 1:30 PM CDT Office Visit [facility] Surgery [facility] and Bariatrics Care [address] [place] [phone] Miriam Melton APRN DIRECTOR OF FINANCIAL PLANNING [address] [place] [address] 05/09/2025 9:30 AM CDT Virtual Visit [facility] Surgery Clinic and Bariatrics Care [place] [address] [facility] [address] [place] [address] Hien Flood, RD [address] [facility] [address] [place], [place] [phone] 08/09/2025 1:30 PM CORE MACHINE OPERATOR Office Visit [facility] Surgery Clinic and Bariatrics Care [place] [address] [facility] [address] [place] [address] Miriam Melton APRN DIRECTOR OF FINANCIAL PLANNING [address] [facility] [address] [place] [address] documented as of this encounter Procedures Procedure Name Priority Date/Time Associated Diagnosis Comments EXTRA PURPLE TOP EDTA (LAB USE ONLY) Routine 08/08/2024 6:23 AM CORE MACHINE OPERATOR CREATININE Routine 08/08/2024 6:23 AM CORE MACHINE OPERATOR PLATELET COUNT Routine 08/07/2024 4:10 PM CORE MACHINE OPERATOR CREATININE Routine 08/07/2024 4:10 PM CORE MACHINE OPERATOR CREATION, GASTRIC BYPASS, SRIDHAR-EN-Y, LAPAROSCOPIC 08/07/2024 10:48 AM CORE MACHINE OPERATOR Morbid obesity (H) Duodenal stricture Special Needs BMI 49.09Staff assist POC US GUIDANCE NEEDLE PLACEMENT Routine 08/07/2024 9:18 AM CORE MACHINE OPERATOR GLUCOSE BY METER Routine 08/07/2024 9:02 AM CORE MACHINE OPERATOR LAB RESULT - HIM SCAN 07/31/2024 12:00 AM CORE MACHINE OPERATOR XRAY IMAGING - HIM SCAN 07/31/2024 12:00 AM CORE MACHINE OPERATOR EKG CARDIAC - HIM SCAN 07/31/2024 12:00 AM CORE MACHINE OPERATOR documented in this encounter Results * Extra Purple Top EDTA (LAB USE ONLY) (08/08/2024 6:23 AM CORE MACHINE OPERATOR) Hold Specimen JIC 08/08/2024 7:46 AM CORE MACHINE OPERATOR [facility] Blood STRUCTURE OF RIGHT UPPER LIMB / Unknown Venipuncture / Unknown 08/08/2024 6:23 AM CORE MACHINE OPERATOR 08/08/2024 6:45 AM CORE MACHINE OPERATOR Aris Thurman MD LAB - BLOOD ORDERABLES Final Result Performing Organization Address [facility] Co de Phone Number [facility] [address] * Creatinine (08/08/2024 6:23 AM CORE MACHINE OPERATOR) Creatinine 0.92 0.51 - 0.95 mg/dL 08/08/2024 7:04 AM CORE MACHINE OPERATOR [facility] GFR Estimate 79 >60 mL/min/1.7 3m2 08/08/2024 7:04 AM CORE MACHINE OPERATOR N LABORATORY Comment:eGFR calculated usin g 2020 CKD-EPI equation. Blood STRUCTURE OF RIGHT UPPER LIMB / Unknown Venipuncture / Unknown 08/08/2024 6:23 AM CORE MACHINE OPERATOR 08/08/2024 6:45 AM CORE MACHINE OPERATOR Miriam Melton APRN, CNP LAB - BLOOD ORDERABL ES Final Result Performing Organization Address [facility] de Phone Number [facility] [address] * Creatinine (08/07/2024 4:10 PM CORE MACHINE OPERATOR) Creatinine 0.95 0.51 - 0.95 mg/dL 08/07/2024 4:45 PM CORE MACHINE OPERATOR N LABORATORY GFR Estimate 76 >60 mL/min/1.7 3m2 08/07/2024 4:45 PM CORE MACHINE OPERATOR [facility] Comment:eGFR calculated usin g 2020 CKD-EPI equation. Blood STRUCTURE OF RIGHT UPPER LIMB / Unknown Venipuncture / Unknown 08/07/2024 4:10 PM CORE MACHINE OPERATOR 08/07/2024 4:24 PM CORE MACHINE OPERATOR Aris Thurman MD LAB - BLOOD ORDERABLES Final Result Performing Organization Address [facility] Co de Phone Number [facility] [address] * Platelet count (08/07/2024 4:10 PM CORE MACHINE OPERATOR) Platelet Count 314 150 - 450 10e3/uL 08/07/2024 4:31 PM CORE MACHINE OPERATOR [facility] Blood STRUCTURE OF RIGHT UPPER LIMB / Unknown Venipuncture / Unknown 08/07/2024 4:10 PM CORE MACHINE OPERATOR 08/07/2024 4:24 PM CORE MACHINE OPERATOR Aris Thurman MD LAB - BLOOD ORDERABLES Final Result Performing Organization Address [facility] de Phone Number [facility] [address] * POC US Guidance Needle Placement (08/07/2024 9:18 AM CORE MACHINE OPERATOR) Narrative [facility] - 08/07/2024 9:18 AM CORE MACHINE OPERATOR Ultrasound was performed as guidance to an anesthesia procedure. Click PACS images hyperlink below to view any stored images. For specific procedure details, view procedure note authored by anesthesia. Timo Elam MD IMG POCUS Final Resu lt Performing Organization Address [facility] de Phone Number [facility] * (ABNORMAL) Glucose by meter (08/07/2024 9:02 AM CORE MACHINE OPERATOR) GLUCOSE BY METER POCT 112(H) 70 - 99 mg/dL 08/07/2024 9:09 AM CORE MACHINE OPERATOR [facility] POCT RESULTS Blood, Capillary BLOOD SPECIMEN / Unknown 08/07/2024 9:02 AM CORE MACHINE OPERATOR 08/07/2024 9:09 AM CORE MACHINE OPERATOR Aris Thurman MD LAB - BEAKER POCT Final Result Performing Organization Address [facility] Co de Phone Number [facility] POCT RESULTS [address] [place] [address] * Lab Result - HIM Scan (07/31/2024 12:00 AM CORE MACHINE OPERATOR) 07/31/2024 us Provider Outside MH NON-BEAKER LAB TESTING Final Result * Xray Imaging - HIM Scan (07/31/2024 12:00 AM CORE MACHINE OPERATOR) Anatomical Region Laterality Modality Other 07/31/2024 us Provider Outside IMG DIAGNOSTIC IMAGING ORDERABL ES Final Result * EKG Cardiac - HIM Scan (07/31/2024 12:00 AM CORE MACHINE OPERATOR) 07/31/2024 us Provider Outside ECG ORDERABLES Final [...] 4 grams/day. $New Bag 08/07/2024 9:30 PM CORE MACHINE OPERATOR 1,000 mg 400 mL/hr $New Bag 08/07/2024 4:12 PM CORE MACHINE OPERATOR 1,000 mg 400 mL/hr acetaminophen (TYLENOL) oral liquid 975 mg 975 mg, Oral, EVERY 6 HOURS, First dose on Wed08/07/24 at 1530, Maximum acetaminophen dose from all sources=75 mg/kg/day not to exceed 4 grams/day. $Given 08/08/2024 8:55 AM CORE MACHINE OPERATOR 975 mg $Given 08/08/2024 3:38 AM CORE MACHINE OPERATOR 975 mg acetaminophen (TYLENOL) tablet 975 mg 975 mg, Oral, ONCE, On Wed08/07/24 at 0930, For 1 dose, Give 60 minutes prior to procedure. Maximum acetaminophen dose from all sources = 75 mg/kg/day not to exceed 4 grams/day., Pre-procedure $Given 08/07/2024 9:23 AM CORE MACHINE OPERATOR 975 mg acetaminophen (TYLENOL) tablet 975 mg [...] Wed08/08/24 at 0900 $Given 08/08/2024 2:26 PM CORE MACHINE OPERATOR 40 mg $Given 08/08/2024 8:45 AM CORE MACHINE OPERATOR 40 mg cetirizine (zyrTEC) tablet 10 mg 10 mg, Oral, DAILY, First dose on Wed08/08/24 at 0900 $Given 08/08/2024 8:44 AM CORE MACHINE OPERATOR 10 mg childrens multivitamin w/iron (FLINTSTONES COMPLETE) chewable tablet 1 tablet 1 tablet, Oral, 2 TIMES DAILY, First dose on Wed08/08/24 at 0900 $Given 08/08/2024 8:39 AM CORE MACHINE OPERATOR 1 tablet cyanocobalamin (VITAMIN B-12) sublingual tablet 1,000 mcg 1,000 mcg, Sublingual, DAILY, First dose on Wed08/08/24 at 0900 $Given 08/08/2024 8:40 AM CORE MACHINE OPERATOR 1,000 mcg dextrose 5% and 0.45% NaCl + KCl 20 mEq/L infusion at 125 mL/hr, Intravenous, CONTINUOUS, Starting on Wed08/07/24 at 1530, Until Wed08/08/24 at 1725 $New Bag 08/08/2024 1:32 AM CORE MACHINE OPERATOR 125 mL/hr Rate/Dose Verify 08/07/2024 7:39 PM CORE MACHINE OPERATOR 125 mL/ hr $New Bag 08/07/2024 4:36 PM CORE MACHINE OPERATOR 125 mL/hr 125 mL/hr doxazosin (CARDURA) tablet 1 mg 1 mg, Oral, AT BEDTIME, First dose on Wed08/07/24 at 2100, Tablets can be crushed and given via enteral route. $Given 08/07/2024 9:30 PM CORE MACHINE OPERATOR 1 mg DULoxetine (CYMBALTA) DR capsule 30 [...] a pudding/yogurt pill. $Given 08/08/2024 8:51 AM CORE MACHINE OPERATOR 30 mg DULoxetine (CYMBALTA) DR capsule 60 [...] a pudding/yogurt pill. $Given 08/08/2024 8:51 AM CORE MACHINE OPERATOR 60 mg enoxaparin ANTICOAGULANT (LOVENOX) injection 40 mg 40 mg, Subcutaneous, EVERY 24 HOURS, First dose on Wed08/07/24 at 2300, Administer enoxaparin (LOVENOX) 12 hours after the heparin PRE OP dose. HOLD if platelet count falls below 50% of baseline or less [id number]/ L and notify provider. $Given 08/07/2024 10:30 PM CORE MACHINE OPERATOR 40 mg famotidine (PEPCID) injection 20 mg 20 mg, Intravenous, Administer over 2 Minutes, MECHANICAL COMMISSIONING ENGINEER TO O.R., Starting on Wed08/07/24 at 0902, For 1 dose, Give unless patient already took any of the following at home the morning of surgery: famotidine (PEPCID), ranitidine (ZANTAC), cimetidine (TAGAMET), nizatadine (AXID). For ordered IV doses 1-20 mg, give IV Push diluted with 5-10 mL NS over a minimum of 2 minutes., Pre-procedure $Given 08/07/2024 9:34 AM CORE MACHINE OPERATOR 20 mg fentaNYL (PF) (SUBLIMAZE) injection 25 [...] HYDROmorphone (DILAUDID)., PACU $Given 08/07/2024 2:46 PM CORE MACHINE OPERATOR 25 mcg $Given 08/07/2024 2:25 PM CORE MACHINE OPERATOR 25 mcg fentaNYL (PF) (SUBLIMAZE) injection 25-100 mcg 25-100 mcg, Intravenous, EVERY 1 MIN PRN, other, procedural sedation, Starting on Wed08/07/24 at 0918, Starting and subsequent doses directed by Anesthesia Provider. Given under the direct supervision of the Anesthesia Provider., Pre-procedure $Given 08/07/2024 10:12 AM CORE MACHINE OPERATOR 100 mcg gabapentin (NEURONTIN) capsule 600 mg 600 mg, Oral, MECHANICAL COMMISSIONING ENGINEER TO O.R., Starting on Wed08/07/24 at 0902, For 1 dose, Give prior to procedure., Pre-procedure $Given 08/07/2024 9:23 AM CORE MACHINE OPERATOR 600 mg gabapentin (NEURONTIN) solution 250 mg 250 mg, Oral, EVERY 8 HOURS SCHEDULED, First dose on Wed08/07/24 at 1530 $Given 08/08/2024 2:27 PM CORE MACHINE OPERATOR 250 mg $Given 08/08/2024 6:40 AM CORE MACHINE OPERATOR 250 mg $Given 08/07/2024 9:30 PM CORE MACHINE OPERATOR 250 mg ketorolac (TORADOL) injection 15 mg [...] 2 minutes., PACU $Given 08/07/2024 1:47 PM CORE MACHINE OPERATOR 15 mg ketorolac (TORADOL) injection 15 mg [...] to 2 minutes. $Given 08/08/2024 2:28 PM CORE MACHINE OPERATOR 15 mg $Given 08/08/2024 8:42 AM CORE MACHINE OPERATOR 15 mg $Given 08/08/2024 3:30 AM CORE MACHINE OPERATOR 15 mg lactated ringers (bag) irrigation SOLN PRN, Starting on Wed08/07/24 at 1230, Intra-procedure $Given 08/07/2024 12:30 PM CORE MACHINE OPERATOR 700 mLs Operative Site/Surgi marianela Site lactated ringers infusion at 100 mL/hr, Intravenous, CONTINUOUS, Pre-procedure, Starting on Wed08/07/24 at 0930, Until Wed08/07/24 at 1314 Restarted 08/07/2024 10:51 AM CORE MACHINE OPERATOR $New Bag 08/07/2024 9:32 AM CORE MACHINE OPERATOR 100 mL/hr lamoTRIgine (LaMICtal) tablet 150 mg 150 mg, Oral, DAILY, First dose on Wed08/08/24 at 0900 $Given 08/08/2024 8:49 AM CORE MACHINE OPERATOR 150 mg magnesium sulfate 4 g in [...] discharge., Pre-procedure $New Bag 08/07/2024 9:41 AM CORE MACHINE OPERATOR 4 g 12.5 mL/hr midazolam (VERSED) injection [...] each dose., Pre-procedure $Given 08/07/2024 10:12 AM CORE MACHINE OPERATOR 2 mg nalbuphine (NUBAIN) injection 5 mg 5 mg, Intravenous, EVERY 4 HOURS PRN, other, itching, Starting on Wed08/07/24 at 1523, If nalBUPHine (NUBAIN) ineffective, call Anesthesia for approval to begin a continuous nalOXone (NARCAN) infusion. If infusion is started, the duration of use is 8 hours. $Given 08/08/2024 4:33 AM CORE MACHINE OPERATOR 5 mg $Given 08/07/2024 4:44 PM CORE MACHINE OPERATOR 5 mg naloxone (NARCAN) injection 0.2 mg [...] Jell-O or applesauce). $Given 08/08/2024 8:51 AM CORE MACHINE OPERATOR 20 mg ondansetron (ZOFRAN ODT) ODT tab [...] Liquid not required. $Given 08/08/2024 8:23 AM CORE MACHINE OPERATOR 4 mg ondansetron (ZOFRAN) injection 4 mg [...] OR dosing., PACU $Given 08/07/2024 1:57 PM CORE MACHINE OPERATOR 4 mg ondansetron (ZOFRAN) injection 4 mg 4 mg, Intravenous, MECHANICAL COMMISSIONING ENGINEER TO O.R., Administer over 2-5 Minutes, Starting on Wed08/07/24 at 0902, For 1 dose, Pre-procedure $Given 08/07/2024 9:34 AM CORE MACHINE OPERATOR 4 mg ondansetron (ZOFRAN) injection 4 mg 4 mg, Intravenous, EVERY 6 HOURS PRN, nausea/vomiting - 1st line, Administer over 2-5 Minutes, Starting on Wed08/07/24 at 1523, Give IF patient unable to tolerate oral medication. This is Step 1 of nausea and vomiting management. If nausea not resolved in 15 minutes, go to Step 2 prochlorperazine (COMPAZINE). $Given 08/07/2024 8:28 PM CORE MACHINE OPERATOR 4 mg sodium chloride (PF) 0.9% PF flush 3 mL 3 mL, Intracatheter, EVERY 8 HOURS, First dose on Wed08/07/24 at 1530, to lock peripheral IV dormant line $Given 08/08/2024 8:55 AM CORE MACHINE OPERATOR 3 mLs traMADol (ULTRAM) tablet 100 mg 100 mg, Oral, EVERY 6 HOURS PRN, moderate pain, pain, Starting on Wed08/07/24 at 1523, All pills are to be cut to less than or equal to inch. $Given 08/07/2024 6:49 PM CORE MACHINE OPERATOR 100 mg traZODone (DESYREL) tablet 100 mg 100 mg, Oral, AT BEDTIME, First dose on Wed08/07/24 at 2100 $Given 08/07/2024 11:00 PM CORE MACHINE OPERATOR 100 mg documented in this encounter Active and Recently Administered Medications Times are shown in CORE MACHINE OPERATOR. Scheduled Medication Order 08/06/2024 08/07/2024 08/08/2024 acetaminophen [...] Pharmacoprophylaxis, Pre-procedure 1059 ($Given - Provider: Lazarus Mendze APRN CRNA) cetirizine (zyrTEC) tablet 10 mg [...] falls below 50% of baseline or less [id number],000/ L and notify provider. 2229 ($Given - Provider: Zahra Seals RN) famotidine (PEPCID) injection 20 mg (COMPLETED) 20 mg, Intravenous, Administer over 2 Minutes, MECHANICAL COMMISSIONING ENGINEER TO O.R., Starting on Wed08/07/24 at 0902, [...] capsule 600 mg (COMPLETED) 600 mg, Oral, MECHANICAL COMMISSIONING ENGINEER TO O.R., Starting on Wed08/07/24 at 0902, [...] 1046 ($Given - Provider: Lazarus Mendez APRN [employer] - Comment: sub cutaneous) ketorolac (TORADOL) injection [...] injection 4 mg (COMPLETED) 4 mg, Intravenous, MECHANICAL COMMISSIONING ENGINEER TO O.R., Administer over 2-5 Minutes, Starting [...] documented as of this encounter Care Teams Net Architect Relationship Specialty Start Date End Date Herson Rhodes MD PCP - General 06/02/11 [facility] [address] [place] [address] Assigned PCP 12/14/[address] [place] [id number] Registered Dietitian Dietitian, Registered 06/09/24 Dung Alva, PhD [employer] [address] [address] Assigned Behavioral Health Provider 06/14/24 Aris Thurman MD [address] [place] [id number] Assigned Surgical Provider 07/15/24 Miriam Melton APRN DIRECTOR OF FINANCIAL PLANNING [address] [place] [id number] Nurse Practitioner Surgery 07/19/24 documented as of this encounter
--- OUTSIDE RECORDS SUMMARY | 2024-09-02 08:57 | XMS_ITS | Referral Summary ---
Author Organization [place] Address [address] [place] [address]. [place] [address] Care Team Providers Care Party Director Name Role Phone Herson Rhodes MD Primary Care Provider [facility] Unavailabl e Hien Flood RD Unavailable Dung Alva PhD Unavailable [phone] Aris Thurman MD Unavailable [phone] Miriam Melton APRN [facility]IDENT C[facility] Unavailable [phone] Encounters Date Type Department Care Team Description 08/30/2024 12:30 PM SHEET METAL MECHANIC Virtual Visit [facility] [address] [phone] Aris Thurman MD S/P gastric bypass (Primary Dx) 08/14/[address] [facility] [address] [phone] 08/14/2024 1:00 PM SHEET METAL MECHANIC Virtual Visit [facility] [address] [phone] Bariatric surgery status (Primary Dx) 08/10/[address] [facility] [address] [place] [address] Litzy Hall, RN 08/10/[address] [facility] [address] [place] [phone] Litzy Hall RN Post-op Phone Call 08/07/2024 8:47 AM SHEET METAL MECHANIC - 08/08/2024 3:24 PM SHEET METAL MECHANIC Hospital Encounter [facility] [address] [place] [phone] Aris Thurman MD Morbid (severe) obesity due to excess calories (H) (Primary Dx); S/P gastric bypass Discharge Disposition: Home or Self Care 08/07/[address] [facility] [address] [place] [phone] Hien Flood, ZEINAB 08/07/2024 9:20 AM SHEET METAL MECHANIC Ancillary Procedure [facility] Ultrasound [address] [place] [phone] Timo Elam MD 08/07/2024 10:51 AM SHEET METAL MECHANIC Anesthesia Event [address] [phone] Aubrey Gutierrez MD Anderson, Raleigh F, MD 08/07/2024 10:09 AM SHEET METAL MECHANIC - 08/07/2024 12:59 PM SHEET METAL MECHANIC Surgery [address] [phone] Aris Thurman MD CREATION, GASTRIC BYPASS, SRIDHAR-EN-Y, LAPAROSCOPIC 07/19/2024 Travel 07/19/2024 12:30 PM SHEET METAL MECHANIC Allied Health/Nurse Visit [facility] [address] [place] [address] Bariatric (Pre-op Class/); Pt Ed 07/18/2024 Travel 07/18/[address] [facility] [address] [place] [phone] Esau [place] 07/17/[address] [facility] [address] [place] [phone] Litzy Hall RN 07/17/[address] [facility] [address] [place] [phone] KevinRadha L 07/17/[address] [facility] [address] [place] [phone] KevinRadha L 07/06/[address] [facility] [address] [place] [phone] KevinRadha L 07/05/2024 Travel 07/05/2024 1:30 PM SHEET METAL MECHANIC Office Visit [facility] [address] [place] [phone] Aris Thurman MD Morbid obesity with BMI of 45.0-49.9, adult (H) (Primary Dx); BLAISE (obstructive sleep apnea); Morbid obesity (H); Duodenal stricture 07/04/2024 Travel 06/29/2024 Travel 06/29/2024 11:00 AM SHEET METAL MECHANIC Lab [facility] [address] [place] [address] History of tobacco use 06/28/[address] [facility] [address] [place] [phone] Litzy Hall RN prep for surgery 06/28/2024 9:30 AM SHEET METAL MECHANIC Virtual Visit [facility] [address] [phone] Dung Alva, PhD Morbid obesity (H) (Primary Dx) 06/27/[address] [facility] [address] [phone] Litzy Hall RN Morbid obesity with BMI of 45.0-49.9, adult (H) (Primary Dx); Pre-diabetes 06/26/2024 2:30 PM SHEET METAL MECHANIC Virtual Visit [facility] [address] [phone] Morbid obesity with BMI of 45.0-49.9, adult (H) (Primary Dx); Pre-bariatric surgery nutrition evaluation 06/14/2024 MyC Medical Advice Initial Department [facility] 06/14/2024 [facility] Medical Advice Initial Department [facility] 06/12/2024 9:00 AM CDT Virtual Visit [facility] [address] [phone] Dung Alva, PhD Morbid obesity (H) (Primary Dx) 06/09/2024 10:00 AM CDT Virtual Visit [facility] [address] [phone] Morbid obesity with BMI of 45.0-49.9, adult (H) (Primary Dx); Pre-bariatric surgery nutrition evaluation 06/05/2024 11:00 AM CDT Virtual Visit [facility] [place] [address] [place] [phone] 1, Sh Wl Diet, RD Obesity (Primary Dx) 06/02/2024 Travel 06/02/[address] [facility] [address] [place] [address] KevinRadha from Last 3 Months [...] Active fluticasone (FLONASE) 50 MCG/ACT nasal spray Sanders 2 sprays into both nostrils daily as [...] start taking after surgery until advised by conduit installer in post-op class. Active estradiol (CLIMARA) 0.05 [...] start taking after surgery until advised by conduit installer in post-op class. Active DULoxetine (CYMBALTA) 30 [...] PM CDT Legal Sex Female 5:06 AM SHEET METAL MECHANIC Gender Identity Female 04/04/2021 10:28 PM CDT Sexual Orientation Straight 04/04/2021 10 :28 PM CDT Last Filed Vital Signs Vital Sign [place] Time Taken Comments Blood Pressure 105/56 08/08/2024 7:44 AM SHEET METAL MECHANIC Pulse 58 08/08/2024 7:44 AM SHEET METAL MECHANIC Temperature 36.4 C (97.5 F) 08/08/2024 7:44 AM SHEET METAL MECHANIC Respiratory Rate 19 08/08/2024 7:44 AM SHEET METAL MECHANIC Oxygen Saturation 96% 08/08/2024 7:44 AM SHEET METAL MECHANIC Inhaled Oxygen Concentration - - Weight 123.4 kg (272 lb) 08/30/2024 12:25 PM SHEET METAL MECHANIC Height 165.1 cm (5' 5) 08/30/2024 12:25 PM SHEET METAL MECHANIC Body Mass Index 45.26 08/30/2024 12:25 PM SHEET METAL MECHANIC Plan of Treatment Upcoming Encounters Date Type Department Care Team (Late st Contact Info) Description 09/08/2024 11:00 AM SHEET METAL MECHANIC Virtual Visit [facility] Care [address] [place] [address] Betty Leonardo, RD [address]45 [facility] 200 [place] [address] 11/06/2024 9:30 AM CDT Virtual Visit [facility]rics Care [address] [phone] Dung Alva, PhD RONNA AND [employer] [facility] [address] [facility] 200 [place] [address] 11/07/2024 9:30 AM CDT Virtual Visit [facility] [address] [place] [address] Hien Flood, RD 2945 [facility] 200 [place] [address] 02/08/2025 1:30 PM CDT Office Visit [facility] [address] [place] [phone] Miriam Melton, DEE [facility] [address] [address] 05/09/2025 9:30 AM CDT [facility] [place] [address] [facility] [address] [place] [phone] Hien Flood, ZEINAB [address] [facility] 200 [place] [address] 08/09/2025 1:30 PM SHEET METAL MECHANIC Office Visit [facility] [place] 2945 [facility] 200 [place] [phone] Miriam Melton, FRAME OPENER [facility] [address] [facility] 200 [place], [place] [phone] Medical Devices Implanted Type Area Multifocal Button Inspector Device Identifier Shelf Expiration Date Model / Serial / Lot Primeadvanced Surescan Mri Neurostimulator Implanted:Qty: 1 on 02/14/2014 by Aj Perkins MD at [facility] Left: Buttocks [employer] 03/19/2015 [id number] / [id number] / Explanted Type Area Multifocal Button Inspector Device Identifier Shelf Expiration Date Model / Serial / Lot Prime Advanced Neurostimulator Implanted:Qty: 1 on 03/16/2011 at [facility] Explanted:Qty: 1 on 02/14/2014 by Aj Perkins MD at [facility] Left: Buttocks [employer] 03/05/2012 [id number] / [id number] / Description:Prime advanced M ulti program Neurostimulator [employer] Procedures Procedure Name Priority Date/Time Associated Diagnosis Comments EXTRA PURPLE TOP EDTA (LAB USE ONLY) Routine 08/08/2024 6:23 AM SHEET METAL MECHANIC CREATININE Routine 08/08/2024 6:23 AM SHEET METAL MECHANIC CREATININE Routine 08/07/2024 4:10 PM SHEET METAL MECHANIC PLATELET COUNT Routine 08/07/2024 4:10 PM SHEET METAL MECHANIC ANE AIRWAY ETT PERFORMABLE Routine 08/07/2024 10:54 AM SHEET METAL MECHANIC CREATION, GASTRIC BYPASS, SRIDHAR-EN-Y, LAPAROSCOPIC 08/07/2024 10:48 AM SHEET METAL MECHANIC Morbid obesity (H) Duodenal stricture Special Needs BMI 49.09Staff assist ANE SPINAL BLOCK FORM Routine 08/07/2024 10:24 AM SHEET METAL MECHANIC POC US GUIDANCE NEEDLE PLACEMENT Routine 08/07/2024 9:18 AM SHEET METAL MECHANIC GLUCOSE BY METER Routine 08/07/2024 9:02 AM SHEET METAL MECHANIC LAB RESULT - HIM SCAN 07/31/2024 12:00 AM SHEET METAL MECHANIC EKG CARDIAC - HIM SCAN 07/31/2024 12:00 AM SHEET METAL MECHANIC XRAY IMAGING - HIM SCAN 07/31/2024 12:00 AM SHEET METAL MECHANIC NICOTINE AND METS, URN, QUANT Routine 06/29/2024 10:50 AM SHEET METAL MECHANIC History of tobacco use LIPID PROFILE Routine [...] EDTA (LAB USE ONLY) (08/08/2024 6:23 AM SHEET METAL MECHANIC) Hold Specimen JI 08/08/2024 7:46 AM SHEET METAL MECHANIC [facility] Blood STRUCTURE OF RIGHT UPPER LIMB / Unknown Venipuncture / Unknown 08/08/2024 6:23 AM SHEET METAL MECHANIC 08/08/2024 6:45 AM SHEET METAL MECHANIC Aris Thurman MD LAB - BLOOD ORDERABLES Final Result Performing Organization Address [facility] Co de Phone Number [facility] [address] [place] [address], [facility] * Creatinine (08/08/2024 6:23 AM SHEET METAL MECHANIC) Only the most recent of2 resultswithin the time period is included. Creatinine 0.92 0.51 - 0.95 mg/dL 08/08/2024 7:04 AM SHEET METAL MECHANIC [facility] GFR Estimate 79 >60 mL/min/1.7 3m2 08/08/2024 7:04 AM SHEET METAL MECHANIC [facility] Comment:eGFR calculated in 2020 CKD-EPI equation. Blood STRUCTURE OF RIGHT UPPER LIMB / Unknown Venipuncture / Unknown 08/08/2024 6:23 AM SHEET METAL MECHANIC 08/08/2024 6:45 AM SHEET METAL MECHANIC Miriam Melton APRN, CNP LAB - BLOOD ORDERABL ES Final Result Performing Organization Address [facility] Co de Phone Number [facility] [address] [place] [address], [facility] * Platelet count (08/07/2024 4:10 PM SHEET METAL MECHANIC) Platelet Count 314 150 - 450 10e3/uL 08/07/2024 4:31 PM SHEET METAL MECHANIC [facility] Blood STRUCTURE OF RIGHT UPPER LIMB / Unknown Venipuncture / Unknown 08/07/2024 4:10 PM SHEET METAL MECHANIC 08/07/2024 4:24 PM SHEET METAL MECHANIC Aris Thurman MD LAB - BLOOD ORDERABLES Final Result Performing Organization Address [facility] Co de Phone Number [facility] [address] [place] [address], [facility] * ANE AIRWAY ETT PERFORMABLE (08/07/2024 10:54 AM SHEET METAL MECHANIC) Narrative Lazarus Mendez APRN CRNA - 08/07/2024 10:54 AM SHEET METAL MECHANIC Lazarus Mendez APRN CRNA 08/07/2024 11:10 AM Airway Patient location during procedure: OR Procedure Start/Stop Times: 08/07/2024 10:54 AM Staff - INSPECTOR TUBES: Lazarus Mendez APRN CRNA Performed By: INSPECTOR TUBES Consent for Airway Urgency: elective Indications and [...] 08/07/2024 10:54 AM us Aubrey Gutierrez MD [place] ANESTHESIA Final Resul t * Spinal Block (08/07/2024 10:24 AM SHEET METAL MECHANIC) Narrative Aubrey Gutierrez MD - 08/07/2024 10:24 AM SHEET METAL MECHANIC Aubrey Gutierrez MD 08/07/2024 10:25 AM Intrathecal [...] Medication Administration Time: 08/07/2024 10:24 AM FOR [facility] ([facility]) ONLY: Pain Team Contact information: please page the Pain Team Via [employer] Search Pain. During daytime hours, please page the attending first. At night please page the resident first. us Aubrey Gutierrez MD [place] ANESTHESIA Final Resul t * POC US Guidance Needle Placement (08/07/2024 9:18 AM SHEET METAL MECHANIC) Narrative [facility] - 08/07/2024 9:18 AM SHEET METAL MECHANIC Ultrasound was performed as guidance to an anesthesia procedure. Click PACS images hyperlink below to view any stored images. For specific procedure details, view procedure note authored by anesthesia. us Timo Elam MD IMG POCUS Final Resu lt RADIANT * (ABNORMAL) Glucose by meter (08/07/2024 9:02 AM SHEET METAL MECHANIC) [facility] Signature GLUCOSE BY METER POCT 112(H) 70 - 99 mg/dL 08/07/2024 9:09 AM SHEET METAL MECHANIC [facility] POCT RESULTS Blood, Capillary BLOOD SPECIMEN / Unknown 08/07/2024 9:02 AM SHEET METAL MECHANIC 08/07/2024 9:09 AM SHEET METAL MECHANIC us Aris Thurman MD LAB - BEAKER POCT Final Result Performing Organization Address City/[facility]/ZIP Co de Phone Number [facility] POCT RESULTS [address] [place] [address] * Lab Result - HIM Scan (07/31/2024 12:00 AM SHEET METAL MECHANIC) 07/31/2024 us Provider Outside NON-BEAKER LAB TESTING Final Result * Xray Imaging - HIM Scan (07/31/2024 12:00 AM SHEET METAL MECHANIC) Anatomical Region Laterality Modality Other 07/31/2024 us Provider Outside IMG DIAGNOSTIC IMAGING ORDERABL ES Final Result * EKG Cardiac - HIM Scan (07/31/2024 12:00 AM SHEET METAL MECHANIC) 07/31/2024 us Provider Outside ECG ORDERABLES Final Result * Nicotine and Mets, Urn, Quant (06/29/2024 10:50 AM SHEET METAL MECHANIC) Cotinine Confirm <15 ng/mL 07/02/20 9:09 PM SHEET METAL MECHANIC [facility] Nicotine Confirmation Urine <15 ng/mL 07/02/2024 9:09 PM SHEET METAL MECHANIC [facility] Comment: INTERPRETIVE INFORMATION: Nicotine and Metabolites, Urine, Quantitative Methodology: Quantitative Liquid Chromatography-Tandem Mass Spectrometry Positive cutoff: Nicotine 15 ng/mL Cotinine 15 ng/mL [id number] 50 ng/mL Anabasine 5 ng/mL For medical [...] developed and its performance characteristics determined by [facility]. It has not been cleared or approved by the [place] Food and Drug Administration. This test was performed in a CLIA certified laboratory and is intended for clinical purposes. Performed By: [facility] [address] [place] [id number] Legal Billing Coordinator: Ceasar Romero MD, PhD CLIA Number: [id number], Urn, Quant <50 ng/mL 07/02/2024 9:09 PM SHEET METAL MECHANIC [facility] Anabasine, Urn, Quant <5 ng/mL 07/02/2024 9:09 PM SHEET METAL MECHANIC [facility] Urine URINE SPECIMEN OBTAINED BY CLEAN CATCH PROCEDURE / Unknown Non-blood Collection / Unknown 06/29/2024 10:50 AM SHEET METAL MECHANIC 06/29/2024 10:51 AM SHEET METAL MECHANIC Miriam Melton APRN [facility] LAB - URINE ORDERABL ES Final Result [facility] [address] [place] [address], [facility] [phone] * (ABNORMAL) Lipid Profile (05/18/2024 11:25 AM [...] High: >= 220 mg/dL Miriam Melton APRN [facility] LAB - BLOOD ORDERABL ES Final Result [facility] [place] [facility] [address] [facility], [address] [place] [address] * Mammogram - HIM Scan (05/02/2024 12:00 AM CDT) Anatomical Region Laterality Modality Other 05/02/2024 Provider Outside IMG MAMMOGRAPHY ORDERABLES Elise l Result * Pap thin layer screen with HPV - recommended age 30 - 65 years (05/07/2021 11:50 AM CDT) Interpretation Negative for Intraepithelial Lesion or Malignancy (NILM) 05/09/2021 2:32 PM CDT [facility] Specimen Adequacy Satisfactory for evaluation, endocervical/paul sformation zone component absent 05/09/2021 2:32 PM CDT [facility] Clinical Information complete hysterectomy 05/09/2021 2:32 PM CDT [facility] Reflex Testing Yes regardless of result 05/09/2021 2:32 PM CDT [facility] Previous Abnormal? No 05/09/2021 2:32 PM CDT [facility] Performing Labs The technical component of this testing was completed at [facility] 05/09/2021 2:32 PM CDT [facility] Brushing VAGINAL STRUCTURE / Unknown 05/07/2021 11:50 AM CDT 05/07/2021 12:21 PM CDT Alan Shah MD LAB - BEAKER AP Final Result Performing Organization Address City/[facility]/ZIP Co de Phone Number [facility] [address] [place] [address], [facility] [phone] * HPV High Risk Types DNA Cervical (05/07/2021 11:50 AM CDT) Other HR HPV Negative Negative 05/13/2021 2:50 PM CDT [facility] HPV16 DNA Negative Negative 05/13/2021 2:50 PM CDT [facility] MOLECULAR DIAGNOSTICS HPV18 DNA Negative Negative 05/13/2021 2:50 PM CDT [facility] FINAL DIAGNOSIS This patient's sample is negative for HPV DNA. This test was developed and its performance characteristics determined by the [facility], Molecular Diagnostics Laboratory. It has [...] is recommended. 05/13/2021 2:50 PM CDT [facility] Brushing VAGINAL STRUCTURE / Unknown Non-blood Collection / Unknown 05/07/2021 11:50 AM CDT 05/12/2021 8:50 AM CDT Alan Shah MD LAB - BLOOD ORDERABLES Final Result [facility] Molecular Diagnostics Lab [address] [facility], [address] [place] [address], [facility] [phone] * HIV 1 and 2 rapid screen [...] Most Recently Relevant to Health Maintenance Insurance [facility] CHOICE Advance Directives For more information, please contact: [phone] * Full Code (Latest Code Status on File) Date Activated Date Inactivated Comments 08/07/2024 3:24 PM 08/08/2024 5:30 PM All basic and advanced life-sustaining interventions are performed as appropriate Question Answer Comments Code status determined by: Discussion with patie nt/ legal decision maker * Full Code Date Activated Date Inactivated Comments 12/19/2015 3:02 PM 12/20/2015 1:10 PM Care Teams Party Director Relationship Specialty Start Date End Date Herson Rhodes MD PCP - General 06/02/11 [facility] [id number] [place] [address] Assigned PCP 12/14/[address] [place] [address] Registered Dietitian Dietitian, Registered 06/09/24 Dung Alva, PhD RONNA [employer] [facility] [address] [address] Assigned Behavioral Health Provider 06/14/24 Aris Thurman MD [address] [place] [address] Assigned Surgical Provider 07/15/24 Miiram Melton APRN [facility] [address] [place] [address] Nurse Practitioner Surgery 07/19/24
--- OUTSIDE RECORDS SUMMARY | 2024-09-02 08:57 | XMS_ITS | Encounter Summary ---
Author Organization [place] Address [address] [place] [address]. [place] [address] Care Team Providers Care Lead Php Developer Name Role Phone Herson Rhodes MD Primary Care Provider [facility] Unavailabl e Hine Flood RD Unavailable [phone] Dung Alva PhD Unavailable Aris Thurman MD Unavailable Miriam Melton APRN SALAD COUNTER ATTENDANT Unavailable [phone] Encounter Details Date Type Department Care Team (Late st Contact Info) Description 08/07/2024 MyC Medical Advice [facility] [place] [address] [place] [address] [address] [place] [phone] Hien Flood, ZEINAB [address] [facility] 200 [place] [address] Social History Tobacco Use Types Packs/Day Years [...] PM CDT Legal Sex Female 5:06 AM LOGISTICS ADMINISTRATOR Gender Identity Female 04/04/2021 10:28 PM CDT Sexual Orientation Straight 04/04/2021 10 :28 PM CDT documented as of this encounter Plan of Treatment Upcoming Encounters Date Type Department Care Team (Late st Contact Info) Description 09/08/2024 11:00 AM LOGISTICS ADMINISTRATOR Virtual Visit [facility] [address] [place] [address] Betty Leonardo, RD [address] [facility] 200 [place] [address] 11/06/2024 9:30 AM CDT Virtual Visit [facility] [address] [place] [address] Dung Alva, PhD [employer]ONNA AND [employer] [facility] [address] [facility] [address] [place] [address] 11/07/2024 9:30 AM CDT Virtual Visit [facility] [address] [place] [address] Hien Flood, RD [address] [facility] 200 [place] [address] 02/08/2025 1:30 PM CDT Office Visit [facility] [address] [place] [address] Miriam Melton, DEE SALAD COUNTER ATTENDANT [address] [facility] 200 [place] [address] 05/09/2025 9:30 AM CDT Virtual Visit [facility] [address] [phone] [place] [address] 08/09/2025 1:30 PM LOGISTICS ADMINISTRATOR Office Visit [facility] [address] [phone] Miriam Melton, GAMING DIRECTOR SALAD COUNTER ATTENDANT [address] [place] [phone] documented as of this encounter Visit Diagnoses Not on filedocumented in this encounter Additional Health Concerns Assessment Noted Time PHQ-9 Depression Total Score: 2 05/07/20 21 11:37 AM CDT documented as of this encounter Care Teams Lead Php Developer Relationship Specialty Start Date End Date Herson Rhodes MD PCP - General 06/02/11 [facility] [address] [place] [address] Assigned PCP 12/14/[address] [place] [address] Registered Dietitian Dietitian, Registered 06/09/24 Dung Alva, PhD [employer] [facility] [address] [place] [address] Assigned Behavioral Health Provider 06/14/24 Aris Thurman MD [address] [place] [address] Assigned Surgical Provider 07/15/24 Miriam Melton APRN [facility] [address] Nurse Practitioner Surgery 07/19/24 documented as of this encounter
--- OUTSIDE RECORDS SUMMARY | 2024-09-02 08:57 | XMS_ITS | Encounter Summary ---
Author Organization [place] Address [address] [place] [address]. [place] [address] Care Team Providers Care Scene And Lighting Design Lecturer Name Role Phone Herson Rhodes MD Primary Care Provider [facility] Unavailabl e Hien Flood [address] Unavailable [phone] Dung Alva PhD Unavailable [phone] Aris Thurman MD Unavailable Miriam Melton APRN WIRE MACHINE OPERATOR Unavailable Reason for Visit * Auth/Cert Specialty Diagnoses / Procedures Referred By Abdirizak trimble Referred To Contact Surgery Diagnoses Morbid obesity (H) Duodenal stricture Morbid obesity (H) [E66.01] Duodenal stricture [K31.5] Procedures AZ REMOVAL STOMACH,SRIDHAR-EN-Y AZ REMV STOMACH,PART,DISTAL,SRIDHAR-EN-Y AZ LAPAROSCOPIC GASTRIC RESTRICTIVE PX, W/GASTRIC BYPASS/ SRIDHAR-EN-Y, < 150CM ZZC GASTRIC BYPASS,OBESE<100CM SRIDHAR-EN-Y CREATION, GASTRIC BYPASS, SRIDHAR-EN-Y, LAPAROSCOPIC [address] [address] Phone: tel: Referral ID Status Reason Start Date Expiration Date Visits Re quested Visits Authorized [id number] 1 1 Encounter Details Date Type Department Care Team (Late st Contact Info) Description 08/07/2024 10:51 AM ROUGHER FOR CEMENT Anesthesia Event [address] [address] Aubrey Gutierrez MD [employer] [address] [place] [address] Timo Elam MD [employer] [address] [place] [address] [id number] Anesthesia Record Procedure Summary Procedure Name Responsible Anesthesiologist Anesthesia Start Time Anesthesia Stop Time CREATION, GASTRIC BYPASS, SRIDHAR-EN-Y, LAPAROSCOPIC (Abdomen) Aubrey Gutierrez MD 08/07/24 1051 08/07/24 1318 Events Date Time Event Comment 08/07/2024 0948 INTERIOR PLANT CARETAKER Ready for Procedure 1024 1051 An Start [...] signs recorded are pre-induction. Lazarus Sheets APRN INTERIOR PLANT CARETAKER 1053 An Induction 1054 An Intubation 1103 Anesthesia Ready for Procedu re 1311 AN Extubation All extubation criteria met prior to removal. 1313 an stop data 1318 An Stop Electronically signed by Lazarus Sheets APRN INTERIOR PLANT CARETAKER on August 07, 2024 1:18 PM Meds [...] Tube Size: 7.5 mm; VL Blade Size: Troy scope 3; Grade View: 1; Adjucts: Stylet; Placement Person: INTERIOR PLANT CARETAKER; Attempts: 1 08/07/24 1054 by Lazarus Sheets EXTERMINATION INSPECTOR INTERIOR PLANT CARETAKER 08/07/24 1311 by Lazarus Sheets APRN CRNA [...] PM CDT Legal Sex Female 5:06 AM ROUGHER FOR CEMENT Gender Identity Female 04/04/2021 10:28 PM CDT [...] Gutierrez MD August 07, 2024 1:34 PM HER FOR CEMENT * Anesthesia Procedure Notes - Lazarus Sheets APRN CRNA - 08/07/2024 11:10 AM CSTAssociated Order(s): Airway Airway Patient location during procedure: OR Procedure Start/Stop Times: 08/07/2024 10:54 AM Staff - INTERIOR PLANT CARETAKER: Lazarus Sheets APRN CRNA Performed By: INTERIOR PLANT CARETAKER Consent for Airway Urgency: elective Indications and [...] Administered Medication Administration Time: 08/07/2024 10:54 AM HER FOR CEMENT * Anesthesia Procedure Notes - Aubrey Gutierrez MD - 08/07/2024 10:24 AM ROUGHER FOR CEMENT Associated Order(s): Spinal Block Intrathecal injection Procedure [...] Medication Administration Time: 08/07/2024 10:24 AM FOR [facility] ([facility]) ONLY: Pain Team Contact information: please page the Pain Team Via Referrizer.Search Pain. During daytime hours, please page the attending first. At night please page the resident first. HER FOR CEMENT * Anesthesia Preprocedure Evaluation - Aubrey Gutierrez [...] GASTRIC BIOPSIES; Surgeon: Kashif Su MD; Location: [facility] OR CASINO MANAGER SURGERY exc endometrial cysts HYSTERECTOMY, PAP STILL INDICATED until 2025 HYSTEROSCOPY DIAGNOSTIC 01/08/2014 Procedure: HYSTEROSCOPY DIAGNOSTIC; Surgeon: Alan Shah MD; Location: [facility] HYSTEROSCOPY DIAGNOSTIC N/A 02/12/2015 Procedure: HYSTEROSCOPY DIAGNOSTIC; Surgeon: Alan Shah MD; Location: [facility] INSERT STIMULATOR DORSAL COLUMN INSERT STIMULATOR [...] N/A 04/11/2019 Procedure: LAPAROSCOPY, USING CO2 LASER (TRANSM[employer]osejaw Mountaine[employer] and Backcountry Travel TECH); Surgeon: Alan Shah MD; Location: OR [...] and realistic alternatives discussed. Questions answered and patient/territory sales representative(s) expressed understanding. - Discussed: Risks, [...] encounter: 130.5 kg (287 lb 9.6 oz). HER FOR CEMENT documented in this encounter Miscellaneous Notes * [...] APRN CRNA August 07, 2024 1:25 PM HER FOR CEMENT documented in this encounter Plan of Treatment Upcoming Encounters Date Type Department Care Team (Late st Contact Info) Description 09/08/2024 11:00 AM ROUGHER FOR CEMENT [facility] [address] 200 [place] [phone] Betty Leonardo, RD 2945 [facility] 200 [place] [address] 11/06/2024 9:30 AM CDT Virtual Visit [facility] Surgery Clinic and Bariatrics Care [address] 200 [place] [address] Dung Alva, PhD RONNA AND [employer] [address] [place] [address] 11/07/2024 9:30 AM CDT Virtual Visit [facility] [address] 200 [place] [address] Hien Flood, RD 2945 [facility] 200 [place] [address] 02/08/2025 1:30 PM CDT Office Visit [facility] [address] 200 [place] [address] Miriam Melton APRN CNP 2945 [facility] 200 [place] [address] 05/09/2025 9:30 AM CDT Virtual Visit [facility] [address] 200 [place] [address] Hien Flood ZEINAB 2945 [facility] 200 [place] [address] 08/09/2025 1:30 PM ROUGHER FOR CEMENT Office Visit [facility] Clinic and Bariatrics [facility] [place] 2945 [facility] 200 [place] [address] Miriam Melton, DEE WIRE MACHINE OPERATOR 2945 [facility] 200 [place] [address] documented as of this encounter Procedures Procedure Name Priority Date/Time Associated Diagnosis Comments ANE AIRWAY ETT PERFORMABLE Routine 08/07/2024 10:54 AM ROUGHER FOR CEMENT ANE SPINAL BLOCK FORM Routine 08/07/2024 10:24 AM ROUGHER FOR CEMENT documented in this encounter Results * ANE AIRWAY ETT PERFORMABLE (08/07/2024 10:54 AM ROUGHER FOR CEMENT) Narrative Lazarus Sheets APRN CRNA - 08/07/2024 10:54 AM ROUGHER FOR CEMENT Lazarus Sheets APRN CRNA 08/07/2024 11:10 AM Airway Patient location during procedure: OR Procedure Start/Stop Times: 08/07/2024 10:54 AM Staff - INTERIOR PLANT CARETAKER: Lazarus Sheets APRN CRNA Performed By: INTERIOR PLANT CARETAKER Consent for Airway Urgency: elective Indications and [...] 08/07/2024 10:54 AM us Aubrey Gutierrez MD AZ ANESTHESIA Final Resul t * Spinal Block (08/07/2024 10:24 AM ROUGHER FOR CEMENT) Narrative Aubrey Gutierrez MD - 08/07/2024 10:24 AM ROUGHER FOR CEMENT Aubrey Gutierrez MD 08/07/2024 10:25 AM Intrathecal [...] Medication Administration Time: 08/07/2024 10:24 AM FOR [facility] ([facility]) ONLY: Pain Team Contact information: please page the Pain Team Via Referrizer. Search Pain. During daytime hours, please page the attending first. At night please page the resident first. us Aubrey Gutierrez MD AZ ANESTHESIA Final Resul t documented in this [...] Pre-procedureIndications:Perioperati ve Pharmacoprophylaxis $Given 08/07/2024 10:59 AM ROUGHER FOR CEMENT 3 g dexAMETHasone PF (DECADRON) injection Intravenous, PRN, Administer over 1 Minutes, Starting on Wed08/07/24 at 1104, Anesthesia Intra-op $Given 08/07/2024 11:04 AM ROUGHER FOR CEMENT 10 mg dexmedeTOMIDine (PRECEDEX) bolus 200 mcg Intravenous, CONTINUOUS PRN, Starting on Wed08/07/24 at 1104, Anesthesia Intra-op $Bolus 08/07/2024 11:38 AM ROUGHER FOR CEMENT 4 mcg $Bolus 08/07/2024 11:30 AM ROUGHER FOR CEMENT 4 mcg $Bolus 08/07/2024 11:22 AM ROUGHER FOR CEMENT 4 mcg fentaNYL (PF) (SUBLIMAZE) injection Intravenous, PRN, Administer over 3-5 Minutes, Starting on Wed08/07/24 at 1053, Anesthesia Intra-op $Given 08/07/2024 10:53 AM ROUGHER FOR CEMENT 100 mcg glycopyrrolate (ROBINUL) injection Intravenous, PRN, Administer over 1-2 Minutes, Starting on Wed08/07/24 at 1107, Anesthesia Intra-op $Given 08/07/2024 11:07 AM ROUGHER FOR CEMENT 0.3 mg heparin ANTICOAGULANT injection 5,000 Units [...] cath care., Pre-procedure $Given 08/07/2024 10:46 AM ROUGHER FOR CEMENT 5,000 Units ketamine (KETALAR) injection Intravenous, PRN, Administer over 2-5 Minutes, Starting on Wed08/07/24 at 1122, Anesthesia Intra-op $Given 08/07/2024 11:53 AM ROUGHER FOR CEMENT 10 mg $Given 08/07/2024 11:44 AM ROUGHER FOR CEMENT 20 mg $Given 08/07/2024 11:25 AM ROUGHER FOR CEMENT 10 mg lactated ringers infusion at 100 mL/hr, Intravenous, CONTINUOUS, Pre-procedure, Starting on Wed08/07/24 at 0930, Until Wed08/07/24 at 1314 Restarted 08/07/2024 10:51 AM ROUGHER FOR CEMENT $New Bag 08/07/2024 9:32 AM ROUGHER FOR CEMENT 100 mL/hr lidocaine 1 % injection Intravenous, PRN, Starting on Wed08/07/24 at 1053, Anesthesia Intra-op $Given 08/07/2024 10:53 AM ROUGHER FOR CEMENT 5 mLs morphine (PF) (DURAMORPH) injection Intrathecal, ONCE PRN WITHIN 24 HRS, Administer over 4-5 Minutes, Starting on Wed08/07/24 at 1024, For 1 dose, Anesthesia Intra-op $Given 08/07/2024 10:24 AM ROUGHER FOR CEMENT 0.2 mg ondansetron (ZOFRAN) injection Intravenous, PRN, Administer over 2-5 Minutes, Starting on Wed08/07/24 at 1155, Anesthesia Intra-op $Given 08/07/2024 11:55 AM ROUGHER FOR CEMENT 4 mg propofol (DIPRIVAN) infusion Intravenous, CONTINUOUS PRN, Starting on Wed08/07/24 at 1054, Anesthesia Intra-op $New Bag 08/07/2024 10:54 AM ROUGHER FOR CEMENT 30 mcg/kg/min 23.49 mL/hr propofol (DIPRIVAN) injection 10 mg/mL vial Intravenous, PRN, Starting on Wed08/07/24 at 1053, Anesthesia Intra-op $Given 08/07/2024 10:53 AM ROUGHER FOR CEMENT 200 mg rocuronium injection Intravenous, PRN, Starting on Wed08/07/24 at 1053, Anesthesia Intra-op $Given 08/07/2024 11:45 AM ROUGHER FOR CEMENT 40 mg $Given 08/07/2024 11:31 AM ROUGHER FOR CEMENT 10 mg $Given 08/07/2024 10:53 AM ROUGHER FOR CEMENT 50 mg sodium chloride 0.9 % infusion Intravenous, CONTINUOUS PRN, Anesthesia Intra-op, Starting on Wed08/07/24 at 1220, Until Wed08/07/24 at 1318 $New Bag 08/07/2024 12:20 PM ROUGHER FOR CEMENT sugammadex (BRIDION) injection Intravenous, PRN, Starting on Wed08/07/24 at 1239, Anesthesia Intra-op $Given 08/07/2024 12:39 PM ROUGHER FOR CEMENT 400 m g documented in this encounter Additional Health Concerns Assessment Noted Time PHQ-9 Depression Total Score: 2 05/07/20 21 11:37 AM CDT documented as of this encounter Care Teams Scene And Lighting Design Lecturer Relationship Specialty Start Date End Date Herson Rhodes MD PCP - General 06/02/11 [facility] [address] [place] [address] Assigned PCP 12/14/[address] [place] [address] [place] [address] Registered Dietitian Dietitian, Registered 06/09/24 Dung Alva, PhD RONNA AND [employer] [facility] [address] [address] Assigned Behavioral Health Provider 06/14/24 Aris Thurman MD [address] [place] [address] Assigned Surgical Provider 07/15/24 Miriam Melton APRN WIRE MACHINE OPERATOR [address] [place] [address] Nurse Practitioner Surgery 07/19/24 documented as of this encounter
--- OUTSIDE RECORDS SUMMARY | 2024-09-02 08:57 | XMS_ITS | Encounter Summary ---
Author Organization [place] Address [address] [place] [address]. [place] [address] Care Team Providers Care Spring Clipper Name Role Phone Herson Rhodes MD Primary Care Provider [facility] Unavailabl e Hien Flood [address] Unavailable [phone] Dung Alva PhD Unavailable [phone] Aris Thurman MD Unavailable Miriam Melton APRN CARPET MECHANIC Unavailable [phone]- [phone] Reason for Visit * Reason Comments Post-Op - General Surgery Encounter Details Date Type Department Care Team (Late st Contact Info) Description 08/30/2024 12:30 PM CAR SHIFTER Virtual Visit [facility] Bariat[facility] Care [address] [phone] Aris Thurman MD [address] [place] [phone] S/P gastric bypass (Primary Dx) Social History [...] PM CDT Legal Sex Female 5:06 AM CAR SHIFTER Gender Identity Female 04/04/2021 10:28 PM CDT Sexual Orientation Straight 04/04/2021 10 :28 PM CDT documented as of this encounter Last Filed Vital Signs Vital Sign Reading Time Taken Comments Blood Pressure - - Pulse - - Temperature - - Respiratory Rate - - Oxygen Saturation - - Inhaled Oxygen Concentration - - Weight 123.4 kg (272 lb) 08/30/2024 12:25 PM CAR SHIFTER Height 165.1 cm (5' 5) 08/30/2024 12:25 PM CAR SHIFTER Body Mass Index 45.26 08/30/2024 12:25 PM CAR SHIFTER documented in this encounter Progress Notes * Aris Thurman MD - 08/30/2024 12:30 PM CST Sofia Iyer is 43 year old female who presents for a billable video visit today. How would you like to obtain your AVS? MyChart If dropped from the video visit, the video invitation should be resent by: Text to cell phone: [phone] Will anyone else be joining your video [...] Center in 3months. Aris Thurman MD ,MD [facility] Department of Surgery Video-Visit Details Type of service: Video Visit Platform used for Video Visit: [employer] Video End Time (time video stopped): 1:03 PM Originating Location (pt. Location): Home Distant Location (provider location): [facility] [place] SHIF[place] documented in this encounter Plan of Treatment Upcoming Encounters Date Type Department Care Team (Late st Contact Info) Description 09/08/2024 11:00 AM CAR SHIFTER Virtual Visit [facility] [address] 200 [place] [phone] Betty Leonardo, RD 2945 [facility] 200 [place] [address] 11/06/2024 9:30 AM CDT Virtual Visit [facility] Surgery [facility] and Bariatrics [address] [address] Dung Alva, PhD RONNA AND [employer] [address] [address] 11/07/2024 9:30 AM CDT Virtual Visit [facility] Surgery [facility] and Bariatrics Care [address] [phone] Hien Flood, RD [facility] [address] 02/08/2025 1:30 PM CDT Office Visit [facility] Surgery [facility] and Bariatrics Care [address] [phone] Miriam Melton APRN CARPET MECHANIC [address] [place] [address] 05/09/2025 9:30 AM CDT Virtual Visit [facility] and Bariatrics Care [place] [address] [place] [address] 200 [place] [phone] 2945 [facility] 200 [place] [address] 08/09/2025 1:30 PM CAR SHIFTER Office Visit [facility] [place] [address] [place] [address] 200 [place] [phone] Miriam Melton APRN CARPET MECHANIC [address] [id number] documented as of this encounter Visit Diagnoses Diagnosis S/P gastric bypass- Primary Bariatric surgery status documented in this encounter Additional Health Concerns Assessment Noted Time PHQ-9 Depression Total Score: 2 05/07/20 21 11:37 AM CDT documented as of this encounter Care Teams Spring Clipper Relationship Specialty Start Date End Date Herson Rhodes MD PCP - General 06/02/11 [facility] [address] [place] [address] Assigned PCP 12/14/[address]45 [facility] 200 [place] [address] Registered Dietitian Dietitian, Registered 06/09/24 Dung Alva, PhD RONNA AND [employer] [address] [facility] 200 [place] [address] Assigned Behavioral Health Provider 06/14/24 Aris Thurman MD 2945 [facility] 200 [place] [address] Assigned Surgical Provider 07/15/24 Miriam Melton APRN [facility] 2945 [facility] 200 [place] [address] Nurse Practitioner Surgery 07/19/24 documented as of this encounter
--- OUTSIDE RECORDS SUMMARY | 2024-09-02 08:57 | XMS_ITS | Encounter Summary ---
Author Organization [place] Address [address] [place] [address]. [place] [address] Care Team Providers Care Auto Dealership Porter Name Role Phone Herson Rhodes MD Primary Care Provider [facility] Unavailabl e Hien Flood RD Unavailable [phone] Dung Alva PhD Unavailable Aris Thurman MD Unavailable Miriam Melton APRN COURTROOM DEPUTY OR CALENDAR CLERK Unavailable [phone] Encounter Details Date Type Department Care Team (Late st Contact Info) Description 08/07/2024 9:20 AM ASSEMBLER LIQUID CENTER Ancillary Procedure [facility] Ultrasound [address] [place] [address] Timo Elam MD [employer] [address] [place] [address] Social History Tobacco Use Types Packs/Day Years [...] PM CDT Legal Sex Female 5:06 AM ASSEMBLER LIQUID CENTER Gender Identity Female 04/04/2021 10:28 PM CDT Sexual Orientation Straight 04/04/2021 10 :28 PM CDT documented as of this encounter Plan of Treatment Upcoming Encounters Date Type Department Care Team (Late st Contact Info) Description 09/08/2024 11:00 AM ASSEMBLER LIQUID CENTER Virtual Visit [facility] Surgery Clinic and Bariatrics Care [address] 200 [place] [phone] Betty Leonardo, RD 2945 [facility] 200 [place] [address] 11/06/2024 9:30 AM CDT Virtual Visit [facility] [address] [address] Dung Alva, PhD RONNA AND [employer] [facility] [address] [place] [address] 11/07/2024 9:30 AM CDT Virtual Visit [facility] [address] [address] Hien Flood, RD 2945 [facility] 200 [place] [address] 02/08/2025 1:30 PM CDT Office Visit [facility] Surgery Clinic and Bariatrics Care [address] [address] Miriam Melton APRN [address] [address] 05/09/2025 9:30 AM CDT Virtual Visit [facility] [address] 200 [place] [phone] 2945 [facility] 200 [place], [place] [phone] 08/09/2025 1:30 PM ASSEMBLER LIQUID CENTER Office Visit [facility] and Bariatrics Care [place] 2945 [facility] 200 [place] [phone] Miriam Melton, ACCOUNT SERVICES COORDINATOR COURTROOM DEPUTY OR CALENDAR CLERK 2945 [facility] 200 [place], [place] [phone] documented as of this encounter Procedures Procedure Name Priority Date/Time Associated Diagnosis Comments POC US GUIDANCE NEEDLE PLACEMENT Routine 08/07/2024 9:18 AM ASSEMBLER LIQUID CENTER documented in this encounter Results * POC US Guidance Needle Placement (08/07/2024 9:18 AM ASSEMBLER LIQUID CENTER) Narrative [facility] - 08/07/2024 9:18 AM ASSEMBLER LIQUID CENTER Ultrasound was performed as guidance to an [...] documented as of this encounter Care Teams Auto Dealership Porter Relationship Specialty Start Date End Date Herson Rhodes MD PCP - General 06/02/11 Clinic - [facility] [address] [place] [address] Assigned PCP 12/14/[address] [place] [address] Registered Dietitian Dietitian, Registered 06/09/24 Dung Alva, PhD RONNA AND [employer] [facility] [address] [facility] 200 [place] [address] Assigned Behavioral Health Provider 06/14/24 Aris Thurman MD [address] [place] [address] Assigned Surgical Provider 07/15/24 Miriam Melton APRN COURTROOM DEPUTY OR CALENDAR CLERK [address] [place] [address] Nurse Practitioner Surgery 07/19/24 documented as of this encounter
--- OUTSIDE RECORDS SUMMARY | 2024-09-02 08:57 | XMS_ITS | Encounter Summary ---
Author Organization [place] Address [address] [place] [address]. [place] [address] Care Team Providers Care Chocolate Finisher Name Role Phone Herson Rhodes MD Primary Care Provider [phone] [facility] Unavailabl e Hien Flood [address] Unavailable [phone] Dung Alva PhD Unavailable [phone] Aris Thurman MD Unavailable Miriam Melton APRN LAST CLEANER Unavailable [phone] Encounter Details Date Type Department Care Team (Late st Contact Info) Description 08/14/2024 1:00 PM HEALTH AND PHYSICAL EDUCATION PROFESSOR Virtual Visit [facility] Surgery Clinic and Bariatrics Care [address] [phone] Bariatric surgery status (Primary Dx) Social History [...] PM CDT Legal Sex Female 5:06 AM HEALTH AND PHYSICAL EDUCATION PROFESSOR Gender Identity Female 04/04/2021 10:28 PM CDT [...] 3 months post op. Hien Flood RD TH AND PHYSICAL EDUCATION PROFESSOR documented in this encounter Plan of Treatment Upcoming Encounters Date Type Department Care Team (Late st Contact Info) Description 09/08/2024 11:00 AM HEALTH AND PHYSICAL EDUCATION PROFESSOR Virtual Visit [facility] Surgery Clinic and Bariatrics Care [address] [phone] [place] [address] [place] [address] 200 [place] [address] 11/06/2024 9:30 AM CDT Virtual Visit [facility] and [facility]rics Care [address] [address] Dung Alva, PhD RONNA AND [employer] [address] [facility] 200 [place] [address] 11/07/2024 9:30 AM CDT Virtual Visit [facility] and [facility]ariatrics Care [address] 200 [place] [address] [facility] 200 [place] [address] 02/08/2025 1:30 PM CDT Office Visit [facility] Bariatrics Care [address] 200 [place] [address] Miriam Melton APRN LAST CLEANER [address] [place] [address] 05/09/2025 9:30 AM CDT Virtual Visit [facility] Surgery [facility] and Bariatrics Care [address] 200 [place] [phone] [facility] 200 [place] [address] 08/09/2025 1:30 PM HEALTH AND PHYSICAL EDUCATION PROFESSOR Office Visit [facility] Surgery [facility] and Bariatrics Care [address] [phone] Miriam Melton APRN LAST CLEANER [address] [place] [address] documented as of this encounter Visit Diagnoses Diagnosis Bariatric surgery status- Primary documented in this encounter Additional Health Concerns Assessment Noted Time PHQ-9 Depression Total Score: 2 05/07/20 21 11:37 AM CDT documented as of this encounter Care Teams Chocolate Finisher Relationship Specialty Start Date End Date Herson Rhoeds MD PCP - General 06/02/11 Clinic - [facility] [address] [place] [address] Assigned PCP 12/14/[address] [facility] [address] Registered Dietitian Dietitian, Registered 06/09/24 Dung Alva, PhD RONNA AND [employer] [facility] [address] [facility] 200 [place] [address] Assigned Behavioral Health Provider 06/14/24 Aris Thurman MD [address] [place] [address] Assigned Surgical Provider 07/15/24 Miriam Melton APRN LAST CLEANER [address] [place] [address] Nurse Practitioner Surgery 07/19/24 documented as of this encounter
--- OUTSIDE RECORDS SUMMARY | 2024-09-02 08:57 | XMS_ITS | Encounter Summary ---
Author Organization [facility] Address [address] [place] [address] [address] Care Team Providers Care Renewals Specialist Name Role Phone Herson Rhodes MD Primary Care Provider [facility] Unavailabl e Hien Flood RD Unavailable [phone] Dung Alva PhD Unavailable Aris Thurman MD Unavailable [phone] Miriam Melton APRN MINES INSPECTOR Unavailable [phone] Encounter Details Date Type Department Care Team (Late st Contact Info) Description 08/14/2024 MyC Medical Advice [facility] [place] [address] [place] [address] 200 [place] [phone] Hien Flood, ZEINAB 2945 [facility] 200 [place] [address] Social History Tobacco Use Types Packs/Day Years [...] PM CDT Legal Sex Female 5:06 AM REFRACTORY TECHNICIAN Gender Identity Female 04/04/2021 10:28 PM CDT Sexual Orientation Straight 04/04/2021 10 :28 PM CDT documented as of this encounter Plan of Treatment Upcoming Encounters Date Type Department Care Team (Late st Contact Info) Description 09/08/2024 11:00 AM REFRACTORY TECHNICIAN Virtual Visit [facility] [address] 200 [place] [address] Betty Leonardo, RD 2945 [facility] 200 [place] [address] 11/06/2024 9:30 AM CDT Virtual Visit [facility] [address] 200 [place] [address] Dung Alva, PhD [employer] [facility] [address] [facility] 200 [place] [address] 11/07/2024 9:30 AM CDT Virtual Visit [facility] [address] 200 [place] [address] Hien Flood, RD 2945 [facility] 200 [place] [address] 02/08/2025 1:30 PM CDT Office Visit [facility] [address] 200 [place] [address] Miriam Melton, DEE MINES INSPECTOR 2945 [facility] 200 [place] [address] 05/09/2025 9:30 AM CDT Virtual Visit [facility] [address] [phone] [place] [address] 08/09/2025 1:30 PM REFRACTORY TECHNICIAN Office Visit [facility] [address] [phone] Miriam Melton, HVAC ENGINEER MINES INSPECTOR [address] [place] [phone] documented as of this encounter Visit Diagnoses Not on filedocumented in this encounter Additional Health Concerns Assessment Noted Time PHQ-9 Depression Total Score: 2 05/07/20 21 11:37 AM CDT documented as of this encounter Care Teams Renewals Specialist Relationship Specialty Start Date End Date Herson Rhodes MD PCP - General 06/02/11 [facility] [address] [place] [address] Assigned PCP 12/14/[address] [place] [address] Registered Dietitian Dietitian, Registered 06/09/24 Dung Alva, PhD [employer]ONNA [employer] [facility] [address] [place] [address] Assigned Behavioral Health Provider 06/14/24 Aris Thurman MD [address] [place] [address] Assigned Surgical Provider 07/15/24 Miriam Melton APRN [facility] [address] Nurse Practitioner Surgery 07/19/24 documented as of this encounter
--- OUTSIDE RECORDS SUMMARY | 2024-09-02 08:57 | XMS_ITS | Encounter Summary ---
Author Organization [facility] Address [address] [place] [address] Care Team Providers Care Flow Manager Name Role Phone Herson Rhodes MD Primary Care Provider [facility] Unavailabl e Hien Flood RD Unavailable [phone] Dung Alva PhD Unavailable [phone] Aris Thurman MD Unavailable Miriam Melton APRN CLINICAL MANAGER HOME CARE Unavailable Reason for Visit * Auth/Cert Specialty Diagnoses / Procedures Referred By Abdirizak trimble Referred To Contact Surgery Diagnoses Morbid obesity (H) Duodenal stricture Morbid obesity (H) [E66.01] Duodenal stricture [K31.5] Procedures NC REMOVAL STOMACH,SRIDHAR-EN-Y NC REMV STOMACH,PART,DISTAL,SRIDHAR-EN-Y NC LAPAROSCOPIC GASTRIC RESTRICTIVE PX, W/GASTRIC BYPASS/ SRIDHAR-EN-Y, < 150CM ZZC GASTRIC BYPASS,OBESE<100CM SRIDHAR-EN-Y CREATION, GASTRIC BYPASS, SRIDHAR-EN-Y, LAPAROSCOPIC [address] [address] Phone: tel: Referral ID Status Reason Start Date Expiration Date Visits Re quested Visits Authorized [id number] 1 1 Encounter Details Date Type Department Care Team ([facility] Contact Info) Description 08/07/2024 10:09 AM TRACK PATROL - 08/07/2024 12:59 PM TRACK PATROL Surgery [facility] [address] [place] [phone] Aris Thurman MD [address] [place] [id number] CREATION, GASTRIC BYPASS, SRIDHAR-EN-Y, LAPAROSCOPIC Surgery Details Date/Time Status Location OR Service Patient Class Case Class Case Type Trauma Case? 08/07/2024 10:09 AM [place] [facility] [place] [facility] 08 Bariatric Surgery Admit Elective [...] PM CDT Legal Sex Female 5:06 AM TRACK PATROL Gender Identity Female 04/04/2021 10:28 PM CDT Sexual Orientation Straight 04/04/2021 10 :28 PM CDT documented as of this encounter Last Filed Vital Signs Vital Sign Reading Time Taken Comments Blood Pressure 160/92 08/07/2024 10:40 AM TRACK PATROL Pulse 68 08/07/2024 10:40 AM TRACK PATROL Temperature 36.8 C (98.2 F) 08/07/2024 8:55 AM TRACK PATROL Respiratory Rate 24 08/07/2024 10:4 0 AM TRACK PATROL Oxygen Saturation 100% 08/07/2024 10: 40 AM TRACK PATROL Inhaled Oxygen Concentration - - Weight 130.5 kg (287 lb 9.6 oz) 08/07/2024 8:55 AM TRACK PATROL Height - - Body Mass Index 47.86 07/19/2024 2:41 PM TRACK PATROL documented in this encounter Discharge Summaries * [...] surgery or until you meet with the certified solid waste facility operator, you will be on a full liquid [...] of 2 weeks. Miriam Melton APRN CNP [phone] [facility] K PATROL documented in this encounter Discharge Instructions * Discharge Instructions* Miriam Melton APRN CNP - 08/08/2024 10:16 AM TRACK PATROL If you are worried about whether or not you need to be seen or if something is wrong, please call your bariatric nurse line at [phone] or the bariatric clinic at [phone]. If you need to be seen in the emergency department for any reason in the next 30 days, please return to [facility]. The bariatric team should be involved in your care/diet even if the problem is unrelated to your surgery. K PATROL documented in this encounter Medications at Time [...] start taking after surgery until advised by certified solid waste facility operator in post-op class. 08/08/2024 cetirizine (ZYRTEC) 10 [...] 08/10/2024 fluticasone (FLONASE) 50 MCG/ACT nasal spray [place] 2 sprays into both nostrils daily as [...] start taking after surgery until advised by certified solid waste facility operator in post-op class. 08/08/2024 Acetaminophen (TYLENOL DISSOLVE [...] encounter Progress Notes * Miriam Melton APRN CLINICAL MANAGER HOME CARE - 08/08/2024 1:50 PM CST Bariatric Surgery [...] GFR Estimate 08/08/2024 79 Hold Specimen 08/08/2024 [facility] Assessment/Plan: Patient is progressing well after [...] any reason, she needs to return to [facility]. Pt is scheduled to follow up at Bariatric Clinic next week. Patient verbalized understanding of theplan. Bariatric nurse clinician will call her in a couple days when she gets home to check in with her. Greater than 45 minutes were spent with this patient with more than 50% of that time spent on education. Miriam Melton CNP [phone] [facility] General and Bariatric Surgery K PATROL * Aris Thurman MD - 08/08/2024 9:13 [...] ready for discharge today. Aris Thurman MD [facility] Surgeons [phone] K PATROL * Zahra Seals RN - 08/08/2024 6:41 [...] On Zahra Seals RN 08/08/2024 6:41 AM K PATROL * Zahra Seals RN - 08/08/2024 12:22 [...] On Zahra Seals RN 08/08/2024 12:23 AM K PATROL documented in this encounter H&P Notes * [...] GASTRIC BIOPSIES; Surgeon: Kashif Su MD; [place] [facility] [place] ALARM INSTALLER SURGERY exc endometrial cysts HYSTERECTOMY, PAP STILL INDICATED until 2025 HYSTEROSCOPY DIAGNOSTIC 01/08/2014 Procedure: HYSTEROSCOPY DIAGNOSTIC; Surgeon: Alan Shah MD; Location: [place] HYSTEROSCOPY DIAGNOSTIC N/A 02/12/2015 Procedure: HYSTEROSCOPY DIAGNOSTIC; Surgeon: Alan Sahh MD; Location: [place] INSERT STIMULATOR DORSAL COLUMN INSERT STIMULATOR DORSAL COLUMN 03/16/2011 Procedure:INSERT STIMULATOR DORSAL COLUMN; Procedure: Exchange of charageable battery of Dorsal Spinal cord stimulator with nonchargeable ; Surgeon:AJ MITCHELL; Location:[facility] OR INSERT STIMULATOR DORSAL COLUMN 06/02/2011 Procedure:INSERT STIMULATOR DORSAL COLUMN; Ooplootronic Spinal Cord Stimulator Revision; Surgeon:AJ MITCHELL; Location: [...] cutoff: Nicotine 15 ng/mL Cotinine 15 ng/mL 9-YM-Lmgdritz 50 ng/mL Anabasine 5 ng/mL Component Ref [...] for future dilations if needed. Aris Thurman [facility]; surgeons [phone] K PATROL documented in this encounter Miscellaneous Notes * [...] Place Danilo Rodriguez RN 08/08/2024 3:27 PM K PATROL * Plan of Care - Danilo Rodriguez [...] Reviewed With: patient Overall Patient Progress: improving K PATROL * Op Note - Aris Thurman MD [...] which was then attached to the iron trestle mainternance laborer to stabilize and retract the left lobe [...] aspect of the gastric pouch. A 32 Mauritanian VISI-G tube wasadvanced on into the gastric [...] a running 2-0 Polysorb suture.. The 32 [place]ian VISI- G tubewas then advanced down through [...] Thurman MD Date: 08/07/2024 Time: 12:49 PM K PATROL * Pharmacy-Admission Medication History - French Bentley RPH - 08/07/2024 9:48 AM CST Pharmacist Admission Medication History Admission medication history is complete. The information provided in this note is only as accurateas the sources available at the time of the update. Information Source(s): Patient, Clinic records, and [facility] via in-person Pertinent Information: none Allergies reviewed with patient and updates made in EHR: yes Medication History Completed By: French Bentley RPH 08/07/2024 9:48 AM WIRE STEWARD Med List Medication Sig Last Dose/Taking acetaminophen [...] 06/23/2024 fluticasone (FLONASE) 50 MCG/ACT nasal spray [place] 2 sprays into both nostrils daily as [...] Take 2 tablets by mouth daily. 08/06/2024 K PATROL documented in this encounter Plan of Treatment Upcoming Encounters Date Type Department Care Team (Late st Contact Info) Description 09/08/2024 11:00 AM TRACK PATROL Virtual Visit [facility] Surgery Clinic and Bariatrics Care [address] [phone] Betty Leonardo, RD [address] [address] 11/06/2024 9:30 AM CDT Virtual Visit [facility] Surgery [facility] and Bariatrics Care [address] [phone] Dung Alva, PhD RONNA AND [employer] [facility] [address] [facility] 200 [place] [address] 11/07/2024 9:30 AM CDT Virtual Visit [facility] Surgery [facility] [address] 200 [place] [address] Hien Flood, RD 2945 [facility] 200 [place] [address] 02/08/2025 1:30 PM CDT Office Visit [facility] and Bariatrics Care [place] [address] [place] [address] 200 [place] [phone] Miriam Melton, DEE CLINICAL MANAGER HOME CARE 2945 [facility] 200 [place] [address] 05/09/2025 9:30 AM CDT Virtual Visit [facility] [place] [address] [place] [address] 200 [place] [phone] Hien Flood, RD 2945 [facility] 200 [place] [address] 08/09/2025 1:30 PM TRACK PATROL Office Visit [facility] Surgery [facility] [address] 200 [place] [phone] Miriam Melton, DEE CLINICAL MANAGER HOME CARE 29[address] [facility] 200 [place] [address] documented as of this encounter Procedures Procedure Name Priority Date/Time Associated Diagnosis Comments EXTRA PURPLE TOP EDTA (LAB USE ONLY) Routine 08/08/2024 6:23 AM TRACK PATROL CREATININE Routine 08/08/2024 6:23 AM TRACK PATROL PLATELET COUNT Routine 08/07/2024 4:10 PM TRACK PATROL CREATININE Routine 08/07/2024 4:10 PM TRACK PATROL CREATION, GASTRIC BYPASS, SRIDHAR-EN-Y, LAPAROSCOPIC 08/07/2024 10:48 AM TRACK PATROL Morbid obesity (H) Duodenal stricture Special Needs BMI 49.09Staff assist POC US GUIDANCE NEEDLE PLACEMENT Routine 08/07/2024 9:18 AM TRACK PATROL GLUCOSE BY METER Routine 08/07/2024 9:02 AM TRACK PATROL LAB RESULT - HIM SCAN 07/31/2024 12:00 AM TRACK PATROL XRAY IMAGING - HIM SCAN 07/31/2024 12:00 AM TRACK PATROL EKG CARDIAC - HIM SCAN 07/31/2024 12:00 AM TRACK PATROL documented in this encounter Results * Extra Purple Top EDTA (LAB USE ONLY) (08/08/2024 6:23 AM TRACK PATROL) Hold Specimen JIC 08/08/2024 7:46 AM TRACK PATROL [facility] Blood STRUCTURE OF RIGHT UPPER LIMB / Unknown Venipuncture / Unknown 08/08/2024 6:23 AM TRACK PATROL 08/08/2024 6:45 AM TRACK PATROL Aris Thurman MD LAB - BLOOD ORDERABLES Final Result Performing Organization Address City/[facility]/ZIP Co de Phone Number [facility] [address] * Creatinine (08/08/2024 6:23 AM TRACK PATROL) Creatinine 0.92 0.51 - 0.95 mg/dL 08/08/2024 7:04 AM TRACK PATROL [facility] GFR Estimate 79 >60 mL/min/1.7 3m2 08/08/2024 7:04 AM TRACK PATROL [facility] Comment:eGFR calculated us2020 CKD-EPI equation. Blood STRUCTURE OF RIGHT UPPER LIMB / Unknown Venipuncture / Unknown 08/08/2024 6:23 AM TRACK PATROL 08/08/2024 6:45 AM TRACK PATROL Miriam Melton APRN, CNP LAB - BLOOD ORDERABL ES Final Result Performing Organization Address City/[facility]/ZIP Co de Phone Number [facility] [address] * Creatinine (08/07/2024 4:10 PM TRACK PATROL) Creatinine 0.95 0.51 - 0.95 mg/dL 08/07/2024 4:45 PM TRACK PATROL [facility] GFR Estimate 76 >60 mL/min/1.7 3m2 08/07/2024 4:45 PM TRACK PATROL [facility] Comment:eGFR calculated 2020 CKD-EPI equation. Blood STRUCTURE OF RIGHT UPPER LIMB / Unknown Venipuncture / Unknown 08/07/2024 4:10 PM TRACK PATROL 08/07/2024 4:24 PM TRACK PATROL Aris Thurman MD LAB - BLOOD ORDERABLES Final Result Performing Organization Address [facility] Co de Phone Number [facility] [address] [place] [address], [facility] * Platelet count (08/07/2024 4:10 PM TRACK PATROL) Platelet Count 314 150 - 450 10e3/uL 08/07/2024 4:31 PM TRACK PATROL [facility] Blood STRUCTURE OF RIGHT UPPER LIMB / Unknown Venipuncture / Unknown 08/07/2024 4:10 PM TRACK PATROL 08/07/2024 4:24 PM TRACK PATROL Aris Thurman MD LAB - BLOOD ORDERABLES Final Result Performing Organization Address [facility] Phone Number [facility] [address] * POC US Guidance Needle Placement (08/07/2024 9:18 AM TRACK PATROL) Narrative [facility] - 08/07/2024 9:18 AM TRACK PATROL Ultrasound was performed as guidance to an anesthesia procedure. Click PACS images hyperlink below to view any stored images. For specific procedure details, view procedure note authored by anesthesia. Timo Elam MD IMG POCUS Final Resu lt Performing Organization Address [facility]/RUST de Phone Number [facility] * (ABNORMAL) Glucose by meter (08/07/2024 9:02 AM TRACK PATROL) GLUCOSE BY METER POCT 112(H) 70 - 99 mg/dL 08/07/2024 9:09 AM TRACK PATROL [facility] POCT RESULTS Blood, Capillary BLOOD SPECIMEN / Unknown 08/07/2024 9:02 AM TRACK PATROL 08/07/2024 9:09 AM TRACK PATROL us Aris Thurman MD LAB - BEAKER POCT Final Result [facility] POCT RESULTS [address] [place] [address] * Lab Result - HIM Scan (07/31/2024 12:00 AM TRACK PATROL) 07/31/2024 us Provider Outside NON-BEAKER LAB TESTING Final Result * Xray Imaging - HIM Scan (07/31/2024 12:00 AM TRACK PATROL) Anatomical Region Laterality Modality Other 07/31/2024 us Provider Outside IMG DIAGNOSTIC IMAGING ORDERABL ES Final Result * EKG Cardiac - HIM Scan (07/31/2024 12:00 AM TRACK PATROL) 07/31/2024 us Provider Outside ECG ORDERABLES Final [...] 4 grams/day. $New Bag 08/07/2024 9:30 PM TRACK PATROL 1,000 mg 400 mL/hr $New Bag 08/07/2024 4:12 PM TRACK PATROL 1,000 mg 400 mL/hr acetaminophen (TYLENOL) oral liquid 975 mg 975 mg, Oral, EVERY 6 HOURS, First dose on Wed08/07/24 at 1530, Maximum acetaminophen dose from all sources=75 mg/kg/day not to exceed 4 grams/day. $Given 08/08/2024 8:55 AM TRACK PATROL 975 mg $Given 08/08/2024 3:38 AM TRACK PATROL 975 mg acetaminophen (TYLENOL) tablet 975 mg [...] Wed08/08/24 at 0900 $Given 08/08/2024 2:26 PM TRACK PATROL 40 mg $Given 08/08/2024 8:45 AM TRACK PATROL 40 mg BUPivacaine 0.25 % - EPINEPHrine 1:200,000 (PF) injection PRN, Starting on Wed08/07/24 at 1125, Intra-procedure $Given 08/07/2024 11:25 AM TRACK PATROL 90 mLs Operative Site/Surgical Site cetirizine (zyrTEC) tablet 10 mg 10 mg, Oral, DAILY, First dose on Wed08/08/24 at 0900 $Given 08/08/2024 8:44 AM TRACK PATROL 10 mg childrens multivitamin w/iron (FLINTSTONES COMPLETE) chewable tablet 1 tablet 1 tablet, Oral, 2 TIMES DAILY, First dose on Wed08/08/24 at 0900 $Given 08/08/2024 8:39 AM TRACK PATROL 1 tablet cyanocobalamin (VITAMIN B-12) sublingual tablet 1,000 mcg 1,000 mcg, Sublingual, DAILY, First dose on Wed08/08/24 at 0900 $Given 08/08/2024 8:40 AM TRACK PATROL 1,000 mcg dextrose 5% and 0.45% NaCl + KCl 20 mEq/L infusion at 125 mL/hr, Intravenous, CONTINUOUS, Starting on Wed08/07/24 at 1530, Until Wed08/08/24 at 1725 $New Bag 08/08/2024 1:32 AM TRACK PATROL 125 mL/hr Rate/Dose Verify 08/07/2024 7:39 PM TRACK PATROL 125 mL/ hr $New Bag 08/07/2024 4:36 PM TRACK PATROL 125 mL/hr 125 mL/hr doxazosin (CARDURA) tablet 1 mg 1 mg, Oral, AT BEDTIME, First dose on Wed08/07/24 at 2100, Tablets can be crushed and given via enteral route. $Given 08/07/2024 9:30 PM TRACK PATROL 1 mg DULoxetine (CYMBALTA) DR capsule 30 [...] a pudding/yogurt pill. $Given 08/08/2024 8:51 AM TRACK PATROL 30 mg DULoxetine (CYMBALTA) DR capsule 60 [...] a pudding/yogurt pill. $Given 08/08/2024 8:51 AM TRACK PATROL 60 mg enoxaparin ANTICOAGULANT (LOVENOX) injection 40 mg 40 mg, Subcutaneous, EVERY 24 HOURS, First dose on Wed08/07/24 at 2300, Administer enoxaparin (LOVENOX) 12 hours after the heparin PRE OP dose. HOLD if platelet count falls below 50% of baseline or less [id number]/ L and notify provider. $Given 08/07/2024 10:30 PM TRACK PATROL 40 mg gabapentin (NEURONTIN) solution 250 mg 250 mg, Oral, EVERY 8 HOURS SCHEDULED, First dose on Wed08/07/24 at 1530 $Given 08/08/2024 2:27 PM TRACK PATROL 250 mg $Given 08/08/2024 6:40 AM TRACK PATROL 250 mg $Given 08/07/2024 9:30 PM TRACK PATROL 250 mg lactated ringers (bag) irrigation SOLN PRN, Starting on Wed08/07/24 at 1230, Intra-procedure $Given 08/07/2024 12:30 PM TRACK PATROL 700 mLs Operative Site/Surgi marianela Site lamoTRIgine (LaMICtal) tablet 150 mg 150 mg, Oral, DAILY, First dose on Wed08/08/24 at 0900 $Given 08/08/2024 8:49 AM TRACK PATROL 150 mg nalbuphine (NUBAIN) injection 5 mg 5 mg, Intravenous, EVERY 4 HOURS PRN, other, itching, Starting on Wed08/07/24 at 1523, If nalBUPHine (NUBAIN) ineffective, call Anesthesia for approval to begin a continuous nalOXone (NARCAN) infusion. If infusion is started, the duration of use is 8 hours. $Given 08/08/2024 4:33 AM TRACK PATROL 5 mg $Given 08/07/2024 4:44 PM TRACK PATROL 5 mg naloxone (NARCAN) injection 0.2 mg [...] Jell-O or applesauce). $Given 08/08/2024 8:51 AM TRACK PATROL 20 mg ondansetron (ZOFRAN ODT) ODT tab [...] Liquid not required. $Given 08/08/2024 8:23 AM TRACK PATROL 4 mg ondansetron (ZOFRAN) injection 4 mg 4 mg, Intravenous, EVERY 6 HOURS PRN, nausea/vomiting - 1st line, Administer over 2-5 Minutes, Starting on Wed08/07/24 at 1523, Give IF patient unable to tolerate oral medication. This is Step 1 of nausea and vomiting management. If nausea not resolved in 15 minutes, go to Step 2 prochlorperazine (COMPAZINE). $Given 08/07/2024 8:28 PM TRACK PATROL 4 mg sodium chloride (PF) 0.9% PF flush 3 mL 3 mL, Intracatheter, EVERY 8 HOURS, First dose on Wed08/07/24 at 1530, to lock peripheral IV dormant line $Given 08/08/2024 8:55 AM TRACK PATROL 3 mLs traMADol (ULTRAM) tablet 100 mg 100 mg, Oral, EVERY 6 HOURS PRN, moderate pain, pain, Starting on Wed08/07/24 at 1523, All pills are to be cut to less than or equal to inch. $Given 08/07/2024 6:49 PM TRACK PATROL 100 mg traZODone (DESYREL) tablet 100 mg 100 mg, Oral, AT BEDTIME, First dose on Wed08/07/24 at 2100 $Given 08/07/2024 11:00 PM TRACK PATROL 100 mg documented in this encounter Active and Recently Administered Medications Times are shown in TRACK PATROL. Scheduled Medication Order 08/06/2024 08/07/2024 08/08/2024 acetaminophen [...] falls below 50% of baseline or less [id number],000/ L and notify provider. 2229 ($Given - Provider: Zahra A Arnel, RN) famotidine (PEPCID) injection 20 mg (COMPLETED) 20 mg, Intravenous, Administer over 2 Minutes, CORSETS SALESPERSON TO O.R., Starting on Wed08/07/24 at 0902, [...] capsule 600 mg (COMPLETED) 600 mg, Oral, CORSETS SALESPERSON TO O.R., Starting on Wed08/07/24 at 0902, [...] 1046 ($Given - Provider: Lazarus Mendez APRN FABRIC SOURCER - Comment: sub cutaneous) ketorolac (TORADOL) injection [...] injection 4 mg (COMPLETED) 4 mg, Intravenous, CORSETS SALESPERSON TO O.R., Administer over 2-5 Minutes, Starting [...] each dose., Pre-procedure 1012 ($Given - Provider: Eimlia Minaya, BRYAN) nalbuphine (NUBAIN) injection 5 mg [...] documented as of this encounter Care Teams Flow Manager Relationship Specialty Start Date End Date Herson Rhodes MD PCP - General 06/02/11 [facility] [address] [facility] [place] [address] Assigned PCP 12/14/[address] [address] Registered Dietitian Dietitian, Registered 06/09/24 Dung Alva, PhD [employer]ON[employer] [facility] 200 [place] [address] Assigned Behavioral Health Provider 06/14/24 Aris Thurman MD [address] [place] [address] 200 [place] [address] Assigned Surgical Provider 07/15/24 Miriam Melton APRN CLINICAL MANAGER HOME CARE [address] [place] [address] 200 [place] [address] Nurse Practitioner Surgery 07/19/24 documented as of this encounter
--- OUTSIDE RECORDS SUMMARY | 2024-09-02 08:58 | XMS_ITS | Encounter Summary ---
Author Organization [facility] Address [address] [place] [address]. [place] [address] Care Team Providers Care Engineering Patternmaker Name Role Phone Herson Rhodes MD Primary Care Provider Alan Shah MD Unavailable [phone] Betty Stevens NP Unavailable Unavailable [facility] Unavailabl e Ed Saenz MD Unavailable [phone] Unavailable [phone] Miriam Melton APRN MARITIME ENGINEER Unavailable + [phone] Dung Alva PhD Unavailable [phone] Aris Thurman MD Unavailable [phone] Miriam Melton APRN MARITIME ENGINEER Unavailable + [phone] Encounter Details Date Type Department Care Team (Late st Contact Info) Description 12/05/2019 MyC Medical Advice [facility] [address] [address] Radha Roblero MD [address]37 [facility] [address] [place] [address] Social History Tobacco Use Types [...] PM CDT Legal Sex Female 5:06 AM ARTIST SUSPECT Gender Identity Female 04/04/2021 10:28 PM CDT Sexual Orientation Straight 04/04/2021 10 :28 PM CDT documented as of this encounter Plan of Treatment Upcoming Encounters Date Type Department Care Team (Late st Contact Info) Description 09/08/2024 11:00 AM ARTIST SUSPECT [facility] [address] 200 [place] [phone] Betty Leonardo, RD 2945 [facility] 200 [place] [address] 11/06/2024 9:30 AM CDT [facility] [address] [address] Dung Alva, PhD [employer] [facility] [address] [address] 11/07/2024 9:30 AM CDT Virtual Visit [facility] [address] [address] Hien Flood, RD [address] [address] 02/08/2025 1:30 PM CDT Office Visit [facility] [address] [phone] Miriam Melton, DEE MARITIME ENGINEER [facility] [address] 05/09/2025 9:30 AM CDT Virtual Visit [facility] [place] [address] [place] [address] 200 [place] [phone] Hien Flood, RD 2945 [facility] 200 [place], [place] [phone] 08/09/2025 1:30 PM ARTIST SUSPECT Office Visit [facility] [place] 2945 [facility] 200 [place] [phone] Miriam Melton APRN CNP [address] [place] [address] 200 [place], [place] [phone] documented as of this encounter Visit Diagnoses Not on filedocumented in this encounter Additional Health Concerns Assessment Noted Time PHQ-9 Depression Total Score: 10 019 2:14 PM ARTIST SUSPECT documented as of this encounter Care Teams Engineering Patternmaker Relationship Specialty Start Date End Date Herson Rhodes MD PCP - General 06/02/11 [place] [address] [place] [address] Assigned OBGYN Provider 06/14/20 Betty Stevens NP Assigned PCP 01/28/23 12/13/23 Clinic - [facility] [address] [place] [address] Assigned PCP 12/14/23 Ed Saenz MD [address] [place] [address] 300 [place], [place] [id number] Assigned Surgical Provider 05/15/24 06/13/[address] [place] [address] Registered Dietitian Dietitian, Registered 06/09/24 Miriam Melton APRN MARITIME ENGINEER [address] [place] [address] Assigned Surgical Provider 06/14/24 07/14/24 Dung Alva, PhD [employer] [facility] [address] [address] Assigned Behavioral Health Provider 06/14/24 Aris Thurman MD [address] [place] [address] Assigned Surgical Provider 07/15/24 Miriam Melton APRN MARITIME ENGINEER [address] [place] [address] Nurse Practitioner Surgery 07/19/24 documented as of this encounter
--- OUTSIDE RECORDS SUMMARY | 2024-09-02 08:58 | XMS_ITS | Encounter Summary ---
Author Organization [facility] Address [address] [place] [address]. [place] [address] Care Team Providers Care Orchid Grower Name Role Phone Herson Rhodes MD Primary Care Provider [facility] Unavailabl e Hien Flood RD Unavailable [phone] Dung Alva PhD Unavailable Aris Thurman MD Unavailable [phone] Miriam Melton APRN CREDIT ANALYSIS MANAGER Unavailable [phone] Encounter Details Date Type Department Care Team (Late st Contact Info) Description 07/17/2024 MyC Medical Advice [facility] Care [address] [phone] Radha Brown Social History Tobacco Use Types [...] PM CDT Legal Sex Female 5:06 AM HEAD OF OPERATION AND LOGISTICS Gender Identity Female 04/04/2021 10:28 PM CDT Sexual Orientation Straight 04/04/2021 10 :28 PM CDT documented as of this encounter Plan of Treatment Upcoming Encounters Date Type Department Care Team (Late st Contact Info) Description 09/08/2024 11:00 AM HEAD OF OPERATION AND LOGISTICS Virtual Visit [facility] [address] 200 [place] [phone] Betty Leonardo, RD 2945 [facility] 200 [place] [address] 11/06/2024 9:30 AM CDT Virtual Visit [facility] [address] 200 [place] [phone] Dung Alva, PhD [employer] [facility] [address] [facility] 200 [place] [address] 11/07/2024 9:30 AM CDT Virtual Visit [facility] [address] 200 [place] [address] Hien Flood, ZEINAB 2945 [facility] 200 [place] [address] 02/08/2025 1:30 PM CDT Office Visit [facility] [address] 200 [place] [address] Miriam Melton, PERFORATOR TYPIST CREDIT ANALYSIS MANAGER [address] [place] [address] 200 [place] [address] 05/09/2025 9:30 AM CDT Virtual Visit [facility] [address] 200 [place] [address] Hien Flood, ZEINAB [address] [place] [address] 08/09/2025 1:30 PM HEAD OF OPERATION AND LOGISTICS Office Visit [facility] [address] [phone] Miriam Melton APRN CREDIT ANALYSIS MANAGER [address] [place] [address] documented as of this encounter Visit Diagnoses Not on filedocumented in this encounter Additional Health Concerns Assessment Noted Time PHQ-9 Depression Total Score: 2 05/07/20 21 11:37 AM CDT documented as of this encounter Care Teams Orchid Grower Relationship Specialty Start Date End Date Herson Rhodes MD PCP - General 06/02/11 Clinic - [facility] [address] [place] [address] Assigned PCP 12/14/[address] [place] [address] Registered Dietitian Dietitian, Registered 06/09/24 Dung Alva, PhD [employer] [address] [address] Assigned Behavioral Health Provider 06/14/24 Aris Thurman MD [address] [place] [address] Assigned Surgical Provider 07/15/24 Miriam Melton APRN CREDIT ANALYSIS MANAGER [address] [address] Nurse Practitioner Surgery 07/19/24 documented as of this encounter
--- OUTSIDE RECORDS SUMMARY | 2024-09-02 08:58 | XMS_ITS | Encounter Summary ---
Author Organization [facility] Address [address] [place] [address]. [place] [address] Care Team Providers Care Apparel Pattern Maker Name Role Phone Herson Rhodes MD Primary Care Provider [facility] Unavailabl e Hien Flood RD Unavailable [phone] Miriam Melton APRN SECTION HAND HELPER Unavailable + [phone] Dung Alva PhD Unavailable Aris Thurman MD Unavailable [phone] Miriam Melton APRN SECTION HAND HELPER Unavailable + [phone] Reason for Visit * Reason Onset Date Comments prep for surgery 06/28/2024 Encounter Details Date Type Department Care Team (Late st Contact Info) Description 06/28/2024 MyC Medical Advice [facility] [address] [phone] Litzy Hall, RN prep for surgery Social [...] PM CDT Legal Sex Female 5:06 AM FAMILY DEVELOPMENT EXTENSION SPECIALIST Gender Identity Female 04/04/2021 10:28 PM CDT Sexual Orientation Straight 04/04/2021 10 :28 PM CDT documented as of this encounter Plan of Treatment Upcoming Encounters Date Type Department Care Team (Late st Contact Info) Description 09/08/2024 11:00 AM FAMILY DEVELOPMENT EXTENSION SPECIALIST [facility] [address] 200 [place] [address] Betty Leonardo, RD 2945 [facility] 200 [place] [address] 11/06/2024 9:30 AM CDT Virtual Visit [facility] [address] 200 [place] [address] Dung Alva, PhD [employer] [address] 200 [place] [address] 11/07/2024 9:30 AM CDT Virtual Visit [facility] [address] 200 [place] [address] Hien Flood, RD 2945 [facility] 200 [place] [address] 02/08/2025 1:30 PM CDT Office Visit [facility] [address] 200 [place] [phone] Miriam Melton, DEE SECTION HAND HELPER 2945 [facility] 200 [place] [address] 05/09/2025 9:30 AM CDT Virtual Visit [facility] [address] [phone] [place] [address] 08/09/2025 1:30 PM FAMILY DEVELOPMENT EXTENSION SPECIALIST Office Visit [facility] [address] [phone] Miriam Melton APRN SECTION HAND HELPER [address] [place] [address] documented as of this encounter Visit Diagnoses Diagnosis History of tobacco use- Primary Personal history of tobacco use, presenting hazards to health documented in this encounter Additional Health Concerns Assessment Noted Time PHQ-9 Depression Total Score: 2 05/07/20 21 11:37 AM CDT documented as of this encounter Care Teams Apparel Pattern Maker Relationship Specialty Start Date End Date Herson Rhodes MD PCP - General 06/02/11 Clinic - [facility] [address] [place] [address] Assigned PCP 12/14/[address] [place] [address] Registered Dietitian Dietitian, Registered 06/09/24 Miriam Melton APRN SECTION HAND HELPER [address] [place] [address] Assigned Surgical Provider 06/14/24 07/14/24 Dung Alva, PhD [employer] [address] 200 [place] [address] Assigned Behavioral Health Provider 06/14/24 Aris hTurman MD 2945 [facility] 200 [place] [address] Assigned Surgical Provider 07/15/24 Miriam Melton APRN [facility] 2945 [facility] [address] [place] [address] Nurse Practitioner Surgery 07/19/24 documented as of this encounter
--- OUTSIDE RECORDS SUMMARY | 2024-09-02 08:58 | XMS_ITS | Encounter Summary ---
Author Organization [facility] Address [address] [place] [address]. [place] [address] Care Team Providers Care Manager Aerospace Name Role Phone Herson Rhodes MD Primary Care Provider [phone] [facility] Unavailabl e Hien Flood RD Unavailable [phone] Dung Alva PhD Unavailable [phone] Aris Thurman MD Unavailable Miriam Melton APRN HRIS SPECIALIST Unavailable + [phone] Encounter Details Date Type Department Care Team (Late st Contact Info) Description 07/18/2024 [facility] [address] [phone] [facility] Social History Tobacco Use Types Packs/Day [...] PM CDT Legal Sex Female 5:06 AM SLACK COOPER Gender Identity Female 04/04/2021 10:28 PM CDT Sexual Orientation Straight 04/04/2021 10 :28 PM CDT documented as of this encounter Plan of Treatment Upcoming Encounters Date Type Department Care Team (Late st Contact Info) Description 09/08/2024 11:00 AM SLACK COOPER Virtual Visit [facility] Surgery [facility]ariat[facility] Care [address] 200 [place] [phone] Betty Leonardo, RD 2945 [facility] 200 [place] [address] 11/06/2024 9:30 AM CDT Virtual Visit [facility] [address] 200 [place] [phone] Dung Alva, PhD [facility] [address] [facility] 200 [place] [address] 11/07/2024 9:30 AM CDT Virtual Visit [facility] [address] 200 [place] [address] Hien Flood, RD 2945 [facility] 200 [place] [address] 02/08/2025 1:30 PM CDT Office Visit [facility] [address] 200 [place] [address] Miriam Melton, INDEPENDENT SALES REPRESENTATIVE HRIS SPECIALIST [address] [place] [address] 200 [place] [address] 05/09/2025 9:30 AM CDT Virtual Visit [facility] [address] 200 [place] [address] Hien Flood, RD [address] [address] 08/09/2025 1:30 PM SLACK COOPER Office Visit [facility] [address] [phone] Miriam Melton APRN HRIS SPECIALIST [address] [place] [address] documented as of this encounter Visit Diagnoses Not on filedocumented in this encounter Additional Health Concerns Assessment Noted Time PHQ-9 Depression Total Score: 2 05/07/20 21 11:37 AM CDT documented as of this encounter Care Teams Manager Aerospace Relationship Specialty Start Date End Date Herson Rhodes MD PCP - General 06/02/11 Clinic - [facility] [address] [place] [address] Assigned PCP 12/14/[address] [place] [address] Registered Dietitian Dietitian, Registered 06/09/24 Dung Alva, PhD [facility] [address] [address] Assigned Behavioral Health Provider 06/14/24 Aris Thurman MD [address] [place] [address] Assigned Surgical Provider 07/15/24 Miriam Melton APRN HRIS SPECIALIST [address] [address] Nurse Practitioner Surgery 07/19/24 documented as of this encounter
--- OUTSIDE RECORDS SUMMARY | 2024-09-02 08:58 | XMS_ITS ---
Author Organization [facility] Address [address] [place] [address] Care Team Providers Care Surgical Territory Manager Name Role Phone Unavailable Unavailable Unavailable Surgery Details Not on file Complications Check Surgery Details section. Procedure Estimated Blood Loss Check Surgery Details section. Procedure Findings Check Surgery Details section. Procedure Specimens Taken Check Surgery Details section.
--- OUTSIDE RECORDS SUMMARY | 2024-09-02 08:58 | XMS_ITS | Encounter Summary ---
Author Organization [facility] Address [address] [place] [address]. [place] [address] Care Team Providers Care Contract Serviceman Name Role Phone Herson Rhodes MD Primary Care Provider [facility] Unavailabl e Hien Flood RD Unavailable [phone] Miriam Melton APRN PEANUT BUTTER MAKER Unavailable Dung Alva PhD Unavailable [phone] Aris Thurman MD Unavailable [phone] Miriam Melton APRN PEANUT BUTTER MAKER Unavailable Encounter Details Date Type Department Care Team (Late st Contact Info) Description 06/14/2024 [facility] Social [facility] Tobacco Use Types Packs/Day [...] PM CDT Legal Sex Female 5:06 AM HOME CHILD CARE PROVIDER Gender Identity Female 04/04/2021 10:28 PM CDT Sexual Orientation Straight 04/04/2021 10 :28 PM CDT documented as of this encounter Plan of Treatment Upcoming Encounters Date Type Department Care Team (Late st Contact Info) Description 09/08/2024 11:00 AM HOME CHILD CARE PROVIDER Virtual Visit [facility] Surgery Clinic and Bariatrics Care [address] 200 [place] [address] Betty Leonardo, RD 2945 [facility] 200 [place] [address] 11/06/2024 9:30 AM CDT Virtual Visit [facility] [address] 200 [place] [address] Dung Alva, PhD [employer]ONNA [employer] [facility] [address] [place] [address] 11/07/2024 9:30 AM CDT Virtual Visit [facility] [address] 200 [place] [address] Hien Flood, RD 2945 [facility] 200 [place] [address] 02/08/2025 1:30 PM CDT Office Visit [facility] [address] 200 [place] [address] Miriam Melton, MEAT MOLDER PEANUT BUTTER MAKER 2945 [facility] 200 [place] [address] 05/09/2025 9:30 AM CDT Virtual Visit [facility] [address] 200 [place] [address] Hien Flood, RD 2945 [facility] 200 [place] [address] 08/09/2025 1:30 PM HOME CHILD CARE PROVIDER Office Visit [facility] [place] [address] [place] [address] 200 [place] [phone] Miriam Melton APRN PEANUT BUTTER MAKER [address] [place] [address] documented as of this encounter Visit Diagnoses Not on filedocumented in this encounter Additional Health Concerns Assessment Noted Time PHQ-9 Depression Total Score: 2 05/07/20 21 11:37 AM CDT documented as of this encounter Care Teams Contract Serviceman Relationship Specialty Start Date End Date Herson Rhodes MD PCP - General 06/02/11 Clinic - [facility] [address] [place] [address] Assigned PCP 12/14/[address] [place] [address] Registered Dietitian Dietitian, Registered 06/09/24 Miriam Melton APRN PEANUT BUTTER MAKER [address] [place] [address] Assigned Surgical Provider 06/14/24 07/14/24 Dung Alva, PhD [employer] [facility] [address] [facility] 200 [place] [address] Assigned Behavioral Health Provider 06/14/24 Aris Thurman MD [address] [place] [address] 200 [place] [address] Assigned Surgical Provider 07/15/24 Miriam Melton APRN PEANUT BUTTER MAKER [address] [place] [address] 200 [place] [address] Nurse Practitioner Surgery 07/19/24 documented as of this encounter
--- OUTSIDE RECORDS SUMMARY | 2024-09-02 08:58 | XMS_ITS | Encounter Summary ---
Author Organization [facility] Address [address] [place] [address] Care Team Providers Care Lotteries Agent Name Role Phone Herson Rhodes MD Primary Care Provider [phone] [facility] Unavailabl e Hien Flood RD Unavailable [phone] Dung Alva PhD Unavailable [phone] Aris Thurman MD Unavailable [phone] Miriam Melton APRN DIRECTOR DATA Unavailable [phone] Reason for Referral * Diagnostic Imaging XR (Routine) - Pending Review Specialty Diagnoses / Procedures [facility] To Contact Radiology. Diagnoses Morbid obesity (H) Pre-op testing Procedures XR Chest 2 Views Miriam eMlton APRN CNP [address] [facility] 200 [place] [address] Phone: tel: fax: Referral ID Status Reason Start Date Expiration Date V isits Requested Visits Authorized [id number] Pending Review 07/19/2024 07/19/2025 1 1 FORCE MANAGEMENT COORDINATOR * (Routine) - Pending Review Specialty Diagnoses / Procedures Referred By Contac t Referred To Contact Diagnoses Morbid obesity (H) Pre-op testing Procedures UA with Microscopic reflex to Culture Miriam Melton APRN CNP [address] [facility] [address] [place] [address] Phone: tel: fax: Referral ID Status Reason Start Date Expiration Date V isits Requested Visits Authorized [id number] Pending Review 07/19/2024 07/19/2025 1 1 FORCE MANAGEMENT COORDINATOR * (Routine) - Pending Review Specialty Diagnoses / Procedures Referred By Contac t Referred To Contact Diagnoses Morbid obesity (H) Pre-op testing Procedures Partial thromboplastin time iMriam Melton APRN CNP [address] [place] [address] 200 [place] [address] Phone: tel: fax: Referral ID Status Reason Start Date Expiration Date V isits Requested Visits Authorized [id number] Pending Review 07/19/2024 07/19/2025 1 1 FORCE MANAGEMENT COORDINATOR * (Routine) - Pending Review Specialty Diagnoses / Procedures Referred By Contac t Referred To Contact Diagnoses Morbid obesity (H) Pre-op testing Procedures INR Miriam Melton APRN CNP [address] [place], [place] [id number] Phone: tel: fax: Referral ID Status Reason Start Date Expiration Date V isits Requested Visits Authorized [id number] Pending Review 07/19/2024 07/19/2025 1 1 FORCE MANAGEMENT COORDINATOR * (Routine) - Pending Review Specialty Diagnoses / Procedures Referred By Contac t Referred To Contact Diagnoses Morbid obesity (H) Pre-op testing Procedures EKG 12-lead complete w/read - Clinics Miriam Melton APRN CNP [address] [place] [address] 200 [place] [address] Phone: tel: fax: Referral ID Status Reason Start Date Expiration Date V isits Requested Visits Authorized [id number] Pending Review 07/19/2024 07/19/2025 1 1 FORCE MANAGEMENT COORDINATOR * (Routine) - Pending Review Specialty Diagnoses / Procedures Referred By Contac t Referred To Contact Diagnoses Morbid obesity (H) Pre-op testing Procedures Comprehensive metabolic panel Miriam Melton APRN CNP [address] [place] [address] Phone: tel: fax: Referral ID Status Reason Start Date Expiration Date V isits Requested Visits Authorized [id number] Pending Review 07/19/2024 07/19/2025 1 1 FORCE MANAGEMENT COORDINATOR * (Routine) - Pending Review Specialty Diagnoses / Procedures Referred By Contac t Referred To Contact Diagnoses Morbid obesity (H) Pre-op testing Procedures CBC with Platelets & Differential Miriam Melton APRN CNP [address] [place] [address] Phone: tel: fax: Referral ID Status Reason Start Date Expiration Date V isits Requested Visits Authorized [id number] Pending Review 07/19/2024 07/19/2025 1 1 FORCE MANAGEMENT COORDINATOR Reason for Visit * Reason Comments Bariatric Pre-op Class Pt Ed Encounter Details Date Type Department Care Team (Latest Contact Info) Description 07/19/2024 12:30 PM WORKFORCE MANAGEMENT COORDINATOR Allied Health/Nurse Visit [facility] and Bariatrics Care [address] [phone] Bariatric (Pre-op Class/); Pt Ed Social History [...] PM CDT Legal Sex Female 5:06 AM WORKFORCE MANAGEMENT COORDINATOR Gender Identity Female 04/04/2021 10:28 PM CDT Sexual Orientation Straight 04/04/2021 10 :28 PM CDT documented as of this encounter Last Filed Vital Signs Vital Sign Reading Time Taken Comments Blood Pressure - - Pulse - - Temperature - - Respiratory Rate - - Oxygen Saturation - - Inhaled Oxygen Concentration - - Weight 133.8 kg (295 lb) 07/19/2024 2:41 PM WORKFORCE MANAGEMENT COORDINATOR Height 165.1 cm (5' 5) 07/19/2024 2:41 PM WORKFORCE MANAGEMENT COORDINATOR Body Mass Index 49.09 07/19/2024 2:41 PM WORKFORCE MANAGEMENT COORDINATOR documented in this encounter Patient Instructions * Patient Instructions* Viktoriya Arce RN - 07/19/2024 12:30 PM WORKFORCE MANAGEMENT COORDINATOR Patient name: Sofia Iyer Surgery: Nancy-En-Y Gastric [...] We can't give an exact time for picking machine operator helper because it depends on how you are [...] that were sent to your pharmacy - [address] [[id number]] NEW PRESCRIPTIONS: In preparation for surgery, we have prescribed some medication that you will need to picking machine operator helper as soon as possible A. Vitamins: Chewable [...] take the morning of surgery. B. Acid Sign Writer Letterer Or Painter: Omeprazole (Prilosec) - If not already taking, [...] a diuretic Herbal supplements Fish oil or [place] 3 Homeopathic remedies 7 Days (One Week) [...] Duloxetine (Brand Name: Cymbalta) Not recommended by demand planning manager to open capsule. However, some patients have [...] current medication list OR update list in [employer] (including vitamins, xkex-hbl-kbqghio medication, eye drops, inhalers, patches, ointments and [...] comb, skin care products, deodorant, make-up, and hairspring studder. If you wear a hearing aid, bring [...] your scheduled surgery time. Showering Before Surgery [email or web address] Preparing Your Skin http://www.[email or web address] HOSPITAL STAY Park in the [facility] Visitor Parking Lot in [place] and check in at the information desk where they will escort you to the [facility]. You will be allowed to have 2 support people with you in the pre-operative area at the hospital. After surgery on the recovery unit, you can have up to 4 visitors and they must leave when visitor hours are over. Meet your surgical team which includes an RN, BOILER ENGINEER, anesthesiologist and your surgeon. IV will be [...] a private room. has been awarded an [employer] Center of Excellence partnered with the [employer] and Bariatric [employer] and [...] by your surgeon, nurse practitioner or physician???s television production assistant, anesthesia, and possibly a pharmacist. A [...] body be your guide. Can be the ???motion picture projectionist apprentice?? in terms of chores at home. Pushing [...] (can be done before or after surgery) http://www.[email or web address] Exercise Guidelines after Weight Loss Surgery (1st 4-6 weeks) http://www.Pluralsight/[email or web address] Exercises after Weight Loss Surgery (strengthening, when no weight lifting restrictions - after 4-6weeks) Http://wwwBioMedomics/[email or web address] MEDICATIONS AFTER SURGERY Here is a simple [...] would like. 1.) Sublingual Vitamin B12: Take 6816-1847 mcg 1 time daily Also available in [...] Daily, or Chewy Bites (250 mg)--4 Daily www.Stopango.Apieron or Celebrate Calcium: Calcium Plus 500 (500mg)--2 Daily, or Calcet Creamy Bites (500 mg)--2 Daily, or Calcium Citrate Chews (250mg) - 4 Daily www.NumeroussAdspringr or UNJURY Opurity: Calcium Citrate Plus (300mg)--3 Daily www.Absolute Commerce or Up-Brody D: Nutrition Direct: Flavorless Calcium Powder (500 mg with 250 IU Vitamin D) www.New Horiz[employer] Entertainment or --3 Scoops Daily Wellesse Liquid Calcium Citrate--1 Tbsp. (500 mg)--2 Times Daily Yippy After 3 months post op: Citracal Petites [...] headache, and arthritis. Some NSAIDs are available pssr-fxt-czzzsuf while others need a prescription from your doctor. NSAIDs should be avoided after bariatric surgery because they can cause stomach ulcers, scarring orbleeding. You will not be able to take any NSAID mediation for the rest of your life after bariatric surgery. Below is a list of common NSAID medications: HHGZ-IAY-VQLSIMI NSAIDs Ibuprofen - Brand names Advil ?? [...] acetaminophen does not control your pain, call [facility] provider to discuss other options. 4. [...] and products. After Bariatric Surgery Discharge Instructions [facility] Comprehensive Weight Management Note: Ask your [...] still healing. We will prescribe an acid website programmer or antacid. Take it as directed. This will help prevent ulcers, heartburn and acid reflux. If you took an acid website programmer before you had surgery, your care team will let you know what acid website programmer you will take after surgery. It is [...] mouth Call the clinic ANY TIME at [phone] if: -Your pain medicine is not working. [...] appointment was not already made, please call: [phone] IMPORTANT PHONE NUMBERS: Bariatric Nurse line (M-F 8am to 4:30pm)=[phone] Main line (after hours/holidays/weekends)=[phone] These are some additional handouts that are very important to read through and use after surgery. They are good tools for after your surgery as you recover. After Your Weight Loss Surgery https://www.Pluralsight/[email or web address] Mindfulness Meditation Https://www.Pluralsight/400399.pdf Conscious Breathing Https://www.Pluralsight/918157.pdf Keeping Track of Your Fluids (for after surgery) https://www.Pluralsight/395346.pdf AFTER SURGERY APPOINTMENT SCHEDULE 1 week with Dietitian (ZEINAB) Dietitian Virtual Group Class scheduled for Wednesday08/15/2024 from 1-2 pm with one of the dietitians. She will send you an email invitation to join the week of this class and the purpose of it is tocheck in with you and give you the next set of dietary instructions. It will be using LightPath Apps, NOT in person or through SOS Online Backup. 2 weeks with Surgeon Surgeon video follow-up visit that will be done through SOS Online Backup which is already scheduled for you. 1 [...] Litzy Hall RN and Viktoriya Arce RN [facility] Surgery and Bariatric Care [address] [facility], [address] FORCE MANAGEMENT COORDINATOR documented in this encounter Progress Notes * [...] understanding. She will have her H&[facility] at [facility] on 07/[facility]/2024 with Herson Rhodes MD and do her pre-op testing at that visit. Orders faxed to [phone] as well as handed to pt in class. Prescriptions for Actigall and vitamins sent to the patient's pharmacy to be started after surgery. Viktoriya Arce RN, CBN [facility] P [phone] F [phone] FORCE MANAGEMENT COORDINATOR * Betty Leonardo RD - 07/19/2024 12:30 PM CST Pt attended the pre-surgery class for bariatric surgery class and was educated on the pre and post surgery liquid diets. Patient received information via [employer] for the pre-op liquid diet and the [...] and soft/regular diet stages. Betty Leonardo RD FORCE MANAGEMENT COORDINATOR documented in this encounter Plan of Treatment Upcoming Encounters Date Type Department Care Team (Late st Contact Info) Description 09/08/2024 11:00 AM WORKFORCE MANAGEMENT COORDINATOR Virtual Visit [facility] Surgery [facility] and Bariatrics Care [address] [phone] [address] [facility] [address] 11/06/2024 9:30 AM CDT Virtual Visit [facility] Surgery [facility] and Bariatrics Care [address] [phone] Dung Alva, PhD [employer] [address] [place], [place] [address] 11/07/2024 9:30 AM CDT Virtual Visit [facility] and Bariatrics Care [address] [phone] [address] [facility] 200 [place] [address] 02/08/2025 1:30 PM CDT Office Visit [facility] and Bariatrics Care [address] 200 [place] [address] Miriam Melton APRN DIRECTOR DATA [address] [place] [address] 200 [place] [address] 05/09/2025 9:30 AM CDT Virtual Visit [facility] and Bariatrics Care [address] 200 [place] [phone] Hien Flood, ZEINAB [address] [facility] 200 [place] [address] 08/09/2025 1:30 PM WORKFORCE MANAGEMENT COORDINATOR Office Visit [facility] and Bariatrics Care [address] 200 [place] [phone] Miriam Melton APRN DIRECTOR DATA [address] [place] [address] Scheduled Orders Name Type Priority Associated Diagnoses [...] documented as of this encounter Care Teams Lotteries Agent Relationship Specialty Start Date End Date Herson Rhodes MD PCP - General 06/02/11 [facility] [id number] [place] [address] Assigned PCP 12/14/[address] [facility] 200 [place] [address] Registered Dietitian Dietitian, Registered 06/09/24 Dung Alva, PhD [employer] [address] [place], [place] [address] Assigned Behavioral Health Provider 06/14/24 Aris Thurman MD [address] [facility] 200 [place] [address] Assigned Surgical Provider 07/15/24 Miriam Melton APRN DIRECTOR DATA [address] [facility] 200 [place], [place] [id number] Nurse Practitioner Surgery 07/19/24 documented as of this encounter
--- OUTSIDE RECORDS SUMMARY | 2024-09-02 08:58 | XMS_ITS | Continuity of Care Document ---
Author Name [facility] User [email or web address] Address Unknown Organization Unknown Address Unknown Procedures FILTER APPLIED:Only known Procedures with Onset Date within the last 5 years Procedure Date Procedure Provider Additiona l Information Status MD REMOVAL STOMACH,SRIDHAR-EN-Y (85498) Completed MD REMV STOMACH,PART,DISTAL,ROU X-EN-Y (77484) Completed MD LAPAROSCOPIC GASTRIC RESTRICTIVE PX, W/GASTRIC BYPASS/ SRIDHAR-EN-Y, < 150CM (79965) Completed ZZC GASTRIC BYPASS,OBESE<100CM SRIDHAR-EN-Y (55755) Completed COMPLETE CBC W/AUTO DIFF WBC (58323) Completed FREE ASSAY (FT-3) (13027) Completed ASSAY THYROID STIM HORMONE (48414) Completed ASSAY OF FREE THYROXINE (57634) Completed HEMOGLOBIN GLYCOSYLATED A1C (30022) Completed LIPID PANEL (20565) Comp leted COMPREHEN METABOLIC PANEL (31141) Completed PT EVAL LOW COMPLEX 20 MIN (31604) Completed THERAPEUTIC EXERCISES (31504) Completed DX MAMMO INCL CAD UNI (57948) Completed ULTRASOUND BREAST LIMITED (85710) Completed ECHO GUIDE FOR BIOPSY (83351) Completed X-RAY EXAM OF FOOT (54213) Completed ANESTH LOWER LEG BONE SURG (08515) Completed OPEN TREATMENT OF METATARSAL FRACTURE, INCLUDES INTERNAL FIXATION, WHEN PERFORMED, EACH (11947) Complete d Encounters FILTER APPLIED:Only known Encounters with Admission Date within the last 5 years Encounter Location Admission Discharge Billing Code Dubbing Machine Operator A ttender Outpatient [facility] on [facility] Outpatient Josef Shah Outpatient Fatuma Guevara Outpatient Ramses Lehman [facility]
--- OUTSIDE RECORDS SUMMARY | 2024-09-02 08:58 | XMS_ITS | Clinical Summary ---
Author Organization [facility] Address [address] [place] [address] Care Team Providers Care Modern And Contemporary Art Curator Name Role Phone Unavailable Primary Care Provider Unavailabl e Source Comments Patient records contain information from all sites at [facility]. For routine questions regarding patient records, call [phone] during business hours, M-F 8:00 AM - 5:00 PM Central Time. Record requests for emergency care only can be directed to [phone] at any time.[facility] Immunizations Name Administration Dates Next Due [...] on file Legal Sex Female 9:22 AM ORACLE REPORTS DEVELOPER Gender Identity Not on file Sexual Orientation Not on file Last Filed Vital Signs Vital Sign Reading Time Taken Comments Blood Pressure 122/80 07/01/2015 11:34 AM ORACLE REPORTS DEVELOPER Pulse 80 07/01/2015 11:34 AM ORACLE REPORTS DEVELOPER Temperature - - Respiratory Rate 14 07/01/2015 11:34 AM ORACLE REPORTS DEVELOPER Oxygen Saturation - - Inhaled Oxygen Concentration - - Weight 104 kg (229 lb 4.5 oz) 07/01/2015 11:34 A M ORACLE REPORTS DEVELOPER Height 166 cm (5' 5.35) 07/29/2015 2:10 PM ORACLE REPORTS DEVELOPER Body Mass Index 37.74 07/01/2015 11:34 AM ORACLE REPORTS DEVELOPER Plan of Treatment Health Maintenance Due Date [...] complete this [place] [id number] [employer]
--- OUTSIDE RECORDS SUMMARY | 2024-09-02 08:58 | XMS_ITS | Encounter Summary ---
Author Organization [facility] Address [address] [place] [address]. [place] [address] Care Team Providers Care Orthopedics Pediatric Physician Name Role Phone Herson Rhodes MD Primary Care Provider [facility] Unavailabl e Hien Flood RD Unavailable Miriam Melton APRN CARGO INSPECTOR Unavailable Dung Alva PhD Unavailable Aris Thurman MD Unavailable [phone] Miriam Melton APRN CARGO INSPECTOR Unavailable Encounter Details Date Type Department Care Team (Late st Contact Info) Description 06/14/2024 MyC [facility] Social [facility] Tobacco Use Types [...] PM CDT Legal Sex Female 5:06 AM FOAM DISPENSER Gender Identity Female 04/04/2021 10:28 PM CDT Sexual Orientation Straight 04/04/2021 10 :28 PM CDT documented as of this encounter Plan of Treatment Upcoming Encounters Date Type Department Care Team (Late st Contact Info) Description 09/08/2024 11:00 AM FOAM DISPENSER Virtual Visit [facility] and Bariatrics Care [address] 200 [place] [address] Betty Leonardo, RD [address] [facility] 200 [place] [address] 11/06/2024 9:30 AM CDT Virtual Visit [facility] and Bariatrics Care [address] 200 [place] [address] Dung Alva, PhD [employer] [facility] [address] [place] [address] 11/07/2024 9:30 AM CDT Virtual Visit [facility] and Bariatrics Care [address] 200 [place] [address] Hien Flood, RD [address] [facility] 200 [place] [address] 02/08/2025 1:30 PM CDT Office Visit [facility] and Bariatrics Care [address] 200 [place] [address] Miriam Melton, JAVA WEB APPLICATION DEVELOPER CARGO INSPECTOR [address] [facility] 200 [place] [address] 05/09/2025 9:30 AM CDT Virtual Visit [facility] and Bariatrics Care [address] 200 [place] [address] Hien Flood, RD [address] [facility] 200 [place] [address] 08/09/2025 1:30 PM FOAM DISPENSER Office Visit [facility] Surgery Clinic and Bariatrics Care [place] [address] [place] [address] 200 [place] [phone] Miriam Melton APRN CARGO INSPECTOR [address] [place] [address] documented as of this encounter Visit Diagnoses Not on filedocumented in this encounter Additional Health Concerns Assessment Noted Time PHQ-9 Depression Total Score: 2 05/07/20 21 11:37 AM CDT documented as of this encounter Care Teams Orthopedics Pediatric Physician Relationship Specialty Start Date End Date Herson Rhodes MD PCP - General 06/02/11 Clinic - [facility] [address] [place] [address] Assigned PCP 12/14/[address] [place] [address] Registered Dietitian Dietitian, Registered 06/09/24 Miriam Melton APRN CARGO INSPECTOR [address] [place] [address] Assigned Surgical Provider 06/14/24 07/14/24 Dung Alva, PhD [employer] [facility] [address] [facility] 200 [place] [address] Assigned Behavioral Health Provider 06/14/24 Aris Thurman MD [address] [place] [address] 200 [place] [address] Assigned Surgical Provider 07/15/24 Miriam Melton APRN CARGO INSPECTOR [address] [place] [address] 200 [place] [address] Nurse Practitioner Surgery 07/19/24 documented as of this encounter
--- OUTSIDE RECORDS SUMMARY | 2024-09-02 08:58 | XMS_ITS | Encounter Summary ---
Author Organization [facility] Address [address] [place] [address]. [place] [address] Care Team Providers Care Account Relationship Manager Name Role Phone Herson Rhodes MD Primary Care Provider [facility] Unavailabl e Hien Flood RD Unavailable [phone] Dung Alva PhD Unavailable [phone] Aris Thurman MD Unavailable Miriam Melton APRN CUSTOMER CARE CONSULTANT Unavailable + [phone] Encounter Details Date Type Department Care Team (Late st Contact Info) Description 07/17/2024 MyC Medical Advice [facility] [address] [phone] Litzy Hall RN Social History Tobacco Use [...] PM CDT Legal Sex Female 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 AM 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 Gender Identity Female 04/04/2021 10:28 PM CDT Sexual Orientation Straight 04/04/2021 10 :28 PM CDT documented as of this encounter Plan of Treatment Upcoming Encounters Date Type Department Care Team (Late st Contact Info) Description 09/08/2024 11:00 AM MAILHOUSE OPERATOR [facility] [address] 200 [place] [phone] Betty Leonardo, RD 2945 [facility] 200 [place] [address] 11/06/2024 9:30 AM CDT Virtual Visit [facility] [address] 200 [place] [address] Dung Alva, PhD [facility] [employer] [address] [facility] 200 [place] [address] 11/07/2024 9:30 AM CDT Virtual Visit [facility] [address] 200 [place] [address] Hien Flood, RD 2945 [facility] 200 [place] [address] 02/08/2025 1:30 PM CDT Office Visit [facility] [address] 200 [place] [phone] Miriam Melton, SURVEY WORKERS SUPERVISOR CUSTOMER CARE CONSULTANT [address] [place] [address] 200 [place] [address] 05/09/2025 9:30 AM CDT Virtual Visit [facility] [address] 200 [place] [address] [address] 08/09/2025 1:30 PM MAILHOUSE OPERATOR Office Visit [facility] [place] [address] [place] [phone] Miriam Melton APRN CUSTOMER CARE CONSULTANT [address] [place] [address] documented as of this encounter Visit Diagnoses Not on filedocumented in this encounter Additional Health Concerns Assessment Noted Time PHQ-9 Depression Total Score: 2 05/07/20 21 11:37 AM CDT documented as of this encounter Care Teams Account Relationship Manager Relationship Specialty Start Date End Date Herson Rhodes MD PCP - General 06/02/11 Clinic - [facility] [address] [place] [address] Assigned PCP 12/14/[address] [place] [address] Registered Dietitian Dietitian, Registered 06/09/24 Dung Alva, PhD [facility] [employer] [address] [facility] 200 [place] [address] Assigned Behavioral Health Provider 06/14/24 Aris Thurman MD [address] [place] [address] Assigned Surgical Provider 07/15/24 Miriam Melton APRN CUSTOMER CARE CONSULTANT [address] [id number] Nurse Practitioner Surgery 07/19/24 documented as of this encounter
--- OUTSIDE RECORDS SUMMARY | 2024-09-02 08:58 | XMS_ITS | Encounter Summary ---
Author Organization [facility] Address [address] [place] [address]. [place] [address] Care Team Providers Care Drywaller Name Role Phone Herson Rhodes MD Primary Care Provider [phone] [facility] Unavailabl e Ed Saenz MD Unavailable [phone] Unavailable [phone] Miriam Melton APRN HUMAN RELATIONS MANAGER Unavailable + [phone] Dung Alva PhD Unavailable Aris Thurman MD Unavailable [phone] Miriam Melton APRN HUMAN RELATIONS MANAGER Unavailable + [phone] Encounter Details Date Type Department Care Team (Late st Contact Info) Description 06/01/2024 MyC Medical Advice [facility] [address] [address] Litzy Hall, RN Social History [...] PM CDT Legal Sex Female 5:06 AM MEDICAL FIELD REPRESENTATIVE Gender Identity Female 04/04/2021 10:28 PM CDT Sexual Orientation Straight 04/04/2021 10 :28 PM CDT documented as of this encounter Plan of Treatment Upcoming Encounters Date Type Department Care Team (Late st Contact Info) Description 09/08/2024 11:00 AM MEDICAL FIELD REPRESENTATIVE Virtual Visit [facility] [address] 200 [place] [address] Betty Leonardo, RD 2945 [facility] 200 [place] [address] 11/06/2024 9:30 AM CDT Virtual Visit [facility] [address] 200 [place] [address] Dung Alva, PhD [facility] [employer] [facility] [address] [facility] 200 [place] [address] 11/07/2024 9:30 AM CDT Virtual Visit [facility] [address] 200 [place] [address] Hien Flood, RD 2945 [facility] 200 [place] [address] 02/08/2025 1:30 PM CDT Office Visit [facility] [address] 200 [place] [phone] Miriam Melton, DEE HUMAN RELATIONS MANAGER 2945 [facility] 200 [place] [address] 05/09/2025 9:30 AM CDT Virtual Visit [facility] [address] 200 [place] [phone] [place] [address] [address] [place] [address] 08/09/2025 1:30 PM MEDICAL FIELD REPRESENTATIVE Office Visit [facility] [address] 200 [place] [phone] Miriam Melton APRN HUMAN RELATIONS MANAGER [address] [place] [address] documented as of this encounter Visit Diagnoses Not on filedocumented in this encounter Additional Health Concerns Assessment Noted Time PHQ-9 Depression Total Score: 2 05/07/20 21 11:37 AM CDT documented as of this encounter Care Teams Drywaller Relationship Specialty Start Date End Date Herson Rhodes MD PCP - General 06/02/11 [facility] [address] [place] [address] Assigned PCP 12/14/23 Ed Saenz MD [address] [place] [address] [address] [place] [address] Assigned Surgical Provider 05/15/24 06/13/[address] [place] [address] [address] [place] [address] Registered Dietitian Dietitian, Registered 06/09/24 Miriam Melton APRN HUMAN RELATIONS MANAGER [address] [place] [address] Assigned Surgical Provider 06/14/24 07/14/24 Dung Alva, PhD [facility] [employer] [facility] 500 [facility] 200 [place] [address] Assigned Behavioral Health Provider 06/14/24 Aris Thurman MD [address] [place] [address] [address] [place] [address] Assigned Surgical Provider 07/15/24 Miriam Melton APRN HUMAN RELATIONS MANAGER [facility]5 [facility] [address] [place] [address] Nurse Practitioner Surgery 07/19/24 documented as of this encounter
--- OUTSIDE RECORDS SUMMARY | 2024-09-02 08:58 | XMS_ITS | Referral Summary ---
Author Organization [facility] Address [address] [place] [address] Care Team Providers Care Medical Record Technician Name Role Phone Unavailable Primary Care Provider Unavailabl e Source Comments Patient records contain information from all sites at [facility]. For routine questions regarding patient records, call [phone] during business hours, M-F 8:00 AM - 5:00 PM Central Time. Record requests for emergency care only can be directed to [phone] at any time.[facility] Immunizations Name Administration Dates Next Due [...] on file Legal Sex Female 9:22 AM IRONING MACHINE OPERATOR Gender Identity Not on file Sexual Orientation Not on file Last Filed Vital Signs Vital Sign Reading Time Taken Comments Blood Pressure 122/80 07/01/2015 11:34 AM IRONING MACHINE OPERATOR Pulse 80 07/01/2015 11:34 AM IRONING MACHINE OPERATOR Temperature - - Respiratory Rate 14 07/01/2015 11:34 AM IRONING MACHINE OPERATOR Oxygen Saturation - - Inhaled Oxygen Concentration - - Weight 104 kg (229 lb 4.5 oz) 07/01/2015 11:34 A M IRONING MACHINE OPERATOR Height 166 cm (5' 5.35) 07/29/2015 2:10 PM IRONING MACHINE OPERATOR Body Mass Index 37.74 07/01/2015 11:34 AM IRONING MACHINE OPERATOR Plan of Treatment Not on file Insurance [facility]
== END 2024-09-02 10:02 | disposition home or self-care (01) ==
PROVIDERS: Emergency Provider Emergency Medicine; PCP Family Medicine
DX: S92.414A Nondisplaced fracture of proximal phalanx of right great toe, initial encounter for closed fracture (principal); W10.9XXA Fall (on) (from) unspecified stairs and steps, initial encounter
CPT/HCPCS: 73630; 99282; 99283; A9270

== ENCOUNTER 2025-01-24 07:18 | Outpatient (CLI) | payer OTHER, SELFPAY ==
[2025-01-24 08:01] LABS: Basophils Percent Auto 0.6 % (0.0-3.0); Eosinophils Percent Auto 2.4 % (0.0-7.0); Hematocrit 40.4 % (33.0-51.0); Hemoglobin* 13.7 gm/dL (12.0-16.0); Lymphocytes Percent Auto 40.6 % (20-44); Mean Corpuscular HGB Conc 34 gm/dL (32-36); Mean Corpuscular Hemoglobin 34 pg (26-34); Mean Corpuscular Volume 99 fL (80-100); Monocytes Percent Auto 12.1 % (0.0-11.0); Neutrophils Percent Auto 44.3 % (42.0-72.0); Platelet Count* 259 K/uL (140-440); RDW Coefficient of Variation % 13.2 % (11.5-15.5); Red Blood Count 4.08 m/uL (4.00-5.20); Slide Review Reflex No
[2025-01-24 08:18] LABS: Chloride* 111 mmol/L (96-114)
[2025-01-24 08:19] LABS: Albumin* 4.1 g/dL (3.3-5.0); Potassium* 3.7 mmol/L (3.6-5.1); Sodium* 141 mmol/L (135-149)
[2025-01-24 08:22] LABS: Alanine Aminotransferase* 54 U/L (4-35); Alkaline Phosphatase* 80 U/L (40-150); Anion Gap 7 mEq/L (7-15); Aspartate Amino Transferase* 35 U/L (12-35); Bilirubin Total* 0.5 mg/dL (0.1-1.5); Blood Urea Nitrogen* 11 mg/dL (5-24); Calcium* 8.7 mg/dL (8.4-10.6); Carbon Dioxide* 23 mmol/L (20-32); Cholesterol* 159 mg/dL (90-199); Creatinine* 0.6 mg/dL (0.5-1.5); Estimated Glomerular Filt Rate 113 ml/min; Glucose* 98 mg/dL (60-115); HDL Cholesterol* 42 mg/dL (>=50); LDL Cholesterol Calculated 92 mg/dL (<100); Total Protein* 6.5 g/dL (6.0-8.3); Triglycerides* 123 mg/dL (40-149)
[2025-01-24 09:10] LABS: Vitamin B12* 941 pg/mL (243-894)
[2025-01-24 09:11] LABS: PTH Intact* 30.4 pg/mL (14.2-75.2)
[2025-01-25 12:47] LABS: Folate, Serum 20.9 ng/mL (>=5.9)
[2025-01-26 00:44] LABS: Zinc, Serum/Plasma 84.1 ug/dL (60.0-120.0)
[2025-01-27 08:51] LABS: Vitamin B1, Whole Blood 145 nmol/L (70-180)
[2025-01-27 17:42] LABS: Vitamin A (Retinol) 0.79 mg/L (0.30-1.20)
[2025-01-28 04:28] LABS: 25-Hydroxyvitamin D2 <1.0 ng/mL; 25-Hydroxyvitamin D2,D3 Total 45.4 ng/mL (30.0-80.0); 25-Hydroxyvitamin D3 45.4 ng/mL
== END 2025-01-24 07:19 | disposition home or self-care (01) ==
PROVIDERS: PCP Family Medicine; Visit Provider Nurse Practitioner
DX: K90.9 Intestinal malabsorption, unspecified (principal); E78.5 Hyperlipidemia, unspecified; Z98.84 Bariatric surgery status
CPT/HCPCS: 36415; 80053; 80061; 82306; 82607; 82728; 82746; 83970; 84425; 84590; 84630; 85025

== ENCOUNTER 2025-07-24 08:34 | Outpatient (CLI) | payer OTHER, SELFPAY ==
[2025-07-24 09:16] LABS: Hematocrit* 42.6 % (33.0-51.0); Hemoglobin* 14.1 gm/dL (12.0-16.0); Immature Granulocytes Abs Auto 0.00 K/uL (0.00-0.30); Immature Granulocytes Pct Auto 0.0 %; Mean Corpuscular HGB Conc 33 gm/dL (32-36); Mean Corpuscular Hemoglobin 33 pg (26-34); Mean Corpuscular Volume 101 fL (80-100); RDW Coefficient of Variation % 12.8 % (11.5-15.5); Red Blood Count* 4.22 m/uL (4.00-5.20); White Blood Count* 4.13 K/uL (4.50-11.00)
[2025-07-24 09:20] LABS: Lymphocytes Absolute Auto 1.40 K/uL (0.90-2.90); Slide Review Reflex No
[2025-07-24 09:45] LABS: Chloride* 104 mmol/L (96-114)
[2025-07-24 09:46] LABS: Albumin* 4.4 g/dL (3.3-5.0); Potassium* 4.0 mmol/L (3.6-5.1); Sodium* 138 mmol/L (135-149)
[2025-07-24 09:48] LABS: Alanine Aminotransferase* 54 U/L (4-35); Aspartate Amino Transferase* 34 U/L (12-35); Blood Urea Nitrogen* 13 mg/dL (5-24); Creatinine* 0.7 mg/dL (0.5-1.5); Estimated Glomerular Filt Rate 109 ml/min
[2025-07-24 09:49] LABS: Alkaline Phosphatase* 79 U/L (40-150); Bilirubin Total* 0.5 mg/dL (0.1-1.5); Calcium* 8.9 mg/dL (8.4-10.6); Carbon Dioxide* 23 mmol/L (20-32); Cholesterol* 212 mg/dL (90-199); Glucose* 102 mg/dL (60-115); HDL Cholesterol* 49 mg/dL (>=50); Total Protein* 7.2 g/dL (6.0-8.3); Triglycerides* 170 mg/dL (40-149)
[2025-07-24 09:55] LABS: Anion Gap 11 mEq/L (7-15)
[2025-07-24 10:39] LABS: Vitamin B12* 989 pg/mL (243-894)
[2025-07-24 10:42] LABS: PTH Intact* 32.5 pg/mL (14.2-75.2)
[2025-07-26 01:23] LABS: Zinc, Serum/Plasma 87.8 ug/dL (60.0-120.0)
[2025-07-26 18:55] LABS: Folate, Serum 21.5 ng/mL (>=5.9)
== END 2025-07-24 08:35 | disposition home or self-care (01) ==
PROVIDERS: PCP Family Medicine; Visit Provider Nurse Practitioner
DX: K90.9 Intestinal malabsorption, unspecified (principal); Z98.84 Bariatric surgery status
CPT/HCPCS: 80053; 80061; 82607; 82728; 82746; 83036; 83970; 84630; 85025